=== PATIENT | male | born 1970 | race Caucasian/White ===

== ENCOUNTER 2016-07-12 19:47 | Observation (INO) | payer OTHER ==
[~2016-07-12] VITALS: Ht 172.7 cm; Wt 59.0 kg
[~2016-07-12 19:47] MED LIST: /OMEP10CA; /ONDA4TA; /PANT40TA; ADV250INH INH; ALBU17IN2 INH; CIPR500T89 PO; COUM1TAB; FLAG500T PO; JANT6TAB; LEVA500T PO; LEVO250T24 PO; MAGN500T2; METO10TA2; NICO21DI4; NICO21DI5 TD; No home medications; Norco; PANCREASE; PEPC20TA2; PERC5TAB8; PERCOCET PO; PHEN1SUP6 PR; PHEN25IN3 PO; PREV15CA; PROT1TAB2 PO; PROTPAK PO; REGL10TA6 PO; REGL5TAB2 PO; SUCR1TA PO; TRAM50TA2 PO; ULTR50TA PO; VALI10TA; VICO5TAB; VIOKASE; ZOFR4SOL PO; ZOFRAN; [UNRECOGNIZED DRUG - CODE] PO
[2016-07-12] MEDS ORDERED: NS 1,000 ML IV ONE (20:45)
[2016-07-12] MEDS ORDERED: METOCLOPRAMIDE INJ 10MG/2ML VIAL (J2765) As Ordered ONE (20:49)
[2016-07-12] MEDS ORDERED: BACT800T5 PO (20:53)
[2016-07-12] MEDS: MORPHINE 4 MG/ML 1ML SYRINGE IV PRN ×2 (20:54→22:34)
[2016-07-12 20:58] LABS: BASO % 0.3 % (0.0-1.0); EOS # 0.1 K/mm3 (0.0-0.50); EOS % 0.4 % (0.0-3.0); LARGE UNSTAINED CELL # 0.1 K/mm3 (0.0-0.4); LARGE UNSTAINED CELL % 0.8 % (0.0-4.0); LYMPH # 1.3 K/mm3 (1.5-4.5); LYMPH % 7.8 % (24.0-44.0); MEAN CORPUSCULAR HEMOGLOBIN 30.7 pg (27.0-33.0); MEAN CORPUSCULAR HGB CONC 34.1 g/dl (32.0-36.5); MEAN CORPUSCULAR VOLUME 89.8 fl (80.0-96.0); MONO # 0.7 K/mm3 (0.0-0.8); MONO % 4.1 % (0.0-5.0); NEUTROPHILS # 14.8 K/mm3 (1.8-7.7); NEUTROPHILS % 86.6 % (36.0-66.0); PLATELET COUNT, AUTOMATED 229 k/mm3 (150-450); RED CELL DISTRIBUTION WIDTH 12.5 % (11.5-14.5); WHITE BLOOD COUNT 17.1 K/mm3 (4.0-10.0)
[2016-07-12] MEDS ORDERED: METOCLOPRAMIDE INJ 10MG/2ML VIAL (J2765) IV ONE (21:00)
[2016-07-12] MEDS ORDERED: diphenhydrAMINE INJ 50MG/ML VIAL (J1200) IV ONE (21:00)
[2016-07-12 23:09] LABS: ALBUMIN/GLOBULIN RATIO 1.43 (1.00-1.93); ALKALINE PHOSPHATASE 129 U/L (45-117); ALT/SGPT 17 U/L (12-78); ANION GAP 15 MEQ/L (8-16); AST/SGOT 16 U/L (15-37); BILIRUBIN,DIRECT 0.2 MG/DL (0.0-0.2); BILIRUBIN,TOTAL 0.7 MG/DL (0.2-1.0); BLOOD UREA NITROGEN 21 MG/DL (7-18); CALCIUM LEVEL 9.3 MG/DL (8.5-10.1); CARBON DIOXIDE LEVEL 20 MEQ/L (21-32); CHLORIDE LEVEL 107 MEQ/L (98-107); CREATININE FOR GFR 2.04 MG/DL (0.70-1.30); GLOMERULAR FILTRATION RATE 37.5 (>60); GLUCOSE, FASTING 135 MG/DL (70-105); POTASSIUM SERUM 4.3 MEQ/L (3.5-5.1); SODIUM LEVEL 142 MEQ/L (136-145); TOTAL PROTEIN 8.5 GM/DL (6.4-8.2)
--- NOTE | 2016-07-12 23:50 | REPUSA ---
CT of the abdomen and pelvis without contrast Clinical statement: Pain. Technique: Multiple axial CT images were obtained from the base of the lungs to the floor of the pelv is utilizing 5 mm axial slices without administration of contrast. Coronal and sagittal reconstructio ns were also obtained. Comparison: 03/20/2016. Findings: Chest: The visualized lung bases are clear. Abdomen: The kidneys are normal in size bilaterally. There is no evidence of hydronephrosis or nephro lithiasis. The liver, spleen, pancreas, gallbladder and adrenal glands are unremarkable. The aorta de monstrates normal caliber and contour. There is no abdominal lymphadenopathy or ascites. Pelvis: The bowel is unremarkable, with no obstructive or inflammatory changes. The appendix is azeem l. Extensive diverticulosis is noted diffusely. The urinary bladder is within normal limits. There is no pelvic lymphadenopathy or ascites. The other pelvic structures appear unremarkable. Bones: There are no suspicious osseous abnormalities seen. There is mild degenerative disc disease at L1/L2. Impression: 1. No acute obstructive or inflammatory bowel changes. Diffuse diverticulosis without evidence of div erticulitis. 2. No evidence of hydronephrosis or nephrolithiasis. 3. Mild degenerative disc disease at L1/L2.
[2016-07-13] MEDS ORDERED: NS 1,000 ML IV ONE
[2016-07-13] MEDS ORDERED: ONDANSETRON 4MG/2ML VIAL (J2405) IV ONE
[2016-07-13] MEDS ORDERED: MORPHINE 4 MG/ML 1ML SYRINGE IV ONE
[2016-07-13] MEDS ORDERED: MORPHINE 2 MG/ML 1ML SYRINGE IV PRN (00:45)
[2016-07-13] MEDS ORDERED: ONDANSETRON 4MG/2ML VIAL (J2405) IV PRN (00:45)
[2016-07-13 01:30] VITALS: BP 140/78
[2016-07-13] MEDS: NS 1,000 ML IV SCH ×2 (02:07→13:54)
--- NOTE | 2016-07-13 02:17 | HPE ---
DATE OF ADMISSION: 07/13/2016 REASON FOR ADMISSION: Abdominal pain, acute kidney injury. HISTORY OF PRESENT ILLNESS: Patient is a 46-year-old male with past medical history significant for gastroesophageal reflux disease, COPD and recurrent pancreatitis who presented to the emergency room complaining of abdominal pain and three days of vomiting and diarrhea, stated his was also sick with similar symptoms. Symptoms continued to worsen until he presented to the emergency room today. In the emergency room, the patient was found to have white count of 17.1. He appears to be dehydrated with a creatinine of 2.04, baseline is around 0.8-0.9. He was still complaining of abdominal pain. He was given a few doses of morphine and two fluid boluses and was admitted under hospitalist service. The patient denied any chest pain or shortness of breath, was complaining of abdominal pain, had one episode of vomiting in the emergency room, but no diarrhea. Denies any fevers or chills. Denies any urinary incontinence. Denies any headaches or dizziness. REVIEW OF SYSTEMS: 12-point review of systems was obtained all of which was negative except for those mentioned above. PAST MEDICAL HISTORY: Significant for history of recurrent pancreatitis, gastroesophageal reflux disease, COPD, not on oxygen, history of hyperlipidemia, history of tobacco abuse, pulmonary nodule in the right upper lobe. The patient has history of alcohol abuse but has quit seven years ago. PAST SURGICAL HISTORY: Sphincterectomy with ERCP and ERCP with pancreatic stent placement 2007. ALLERGIES: No known drug allergies. SOCIAL HISTORY: Patient smokes half a pack a day for the past 30 years was an alcoholic but quit. FAMILY HISTORY: Noncontributory. HOME MEDICATIONS: Include - Reglan as needed for nausea or vomiting - pantoprazole 40 mg by mouth daily - Phenergan 25 mg as needed for nausea, vomiting PHYSICAL FINDINGS: VITALS: Temperature 98.1, pulse 80, respiratory rate 18, blood pressure is 135/78, pulse oximetry 99% on room air. HEENT: Pupils equal, round and reactive to light and accommodation. NECK: Supple. No jugular venous distention. LUNGS: Clear to auscultation bilaterally. ABDOMEN: Soft, tender to palpation. Positive bowel sounds. EXTREMITIES: No clubbing, cyanosis or edema. NEURO: Cranial nerves II-XII grossly intact. No focal deficits. CARDIAC: Regular rate and rhythm. No murmurs appreciated. LABORATORY DATA: WBCs 17.1, hemoglobin 20.2, hematocrit 59, platelet count 229. Sodium 142, potassium 4.3, chloride 107, BUN 21, creatinine 2.04, fasting glucose 135, AST 16, ALT 17, total bilirubin 0.7, alk phos 129, lipase 108. CT scan of the abdomen pelvis was done in the emergency room which showed no acute obstructive or inflammatory bowel changes. Diffuse diverticulosis without evidence of diverticulitis. No evidence of hydronephrosis or hydronephritis, mild degenerative disc disease at L1-2. ASSESSMENT AND PLAN: 1. Acute kidney injury, likely secondary to dehydration secondary to nausea, vomiting, diarrhea. Continue IV fluids. The patient received normal saline fluid boluses in the emergency room. Will continue IV fluids at a rate of 80 mL /hr. Will continue clear liquid diet. We will repeat labs in the morning. 2. Abdominal pain, unknown etiology at this time may be secondary to gastroenteritis. We will continue IV morphine as needed for pain. 3. Vomiting and diarrhea. We will order a GI panel. Continue IV hydration. 4. Leukocytosis may be secondary to reactive process versus infection. Will continue to monitor. 5. DVT prophylaxis. Sequential compression devices while in bed.
[2016-07-13 06:00] VITALS: BP 123/70
[2016-07-13] MEDS: MORPHINE 2 MG/ML 1ML SYRINGE IV PRN ×3 (06:21→18:58)
[2016-07-13] MEDS ORDERED: TRAZ50TA4 PO (06:42)
[2016-07-13] MEDS ORDERED: HYDR-3713 PO (06:42)
[2016-07-13] MEDS ORDERED: ZOFR20TA PO (06:42)
[2016-07-13 06:49] LABS: ALBUMIN 3.8 GM/DL (3.2-5.2); ALBUMIN/GLOBULIN RATIO 1.09 (1.00-1.93); ALKALINE PHOSPHATASE 98 U/L (45-117); ALT/SGPT 15 U/L (12-78); ANION GAP 9 MEQ/L (8-16); AST/SGOT 10 U/L (15-37); BILIRUBIN,TOTAL 0.4 MG/DL (0.2-1.0); BLOOD UREA NITROGEN 26 MG/DL (7-18); CALCIUM LEVEL 8.4 MG/DL (8.5-10.1); CARBON DIOXIDE LEVEL 24 MEQ/L (21-32); CHLORIDE LEVEL 108 MEQ/L (98-107); CREATININE FOR GFR 1.32 MG/DL (0.70-1.30); GLOMERULAR FILTRATION RATE > 60.0 (>60); GLUCOSE, FASTING 143 MG/DL (70-105); POTASSIUM SERUM 4.1 MEQ/L (3.5-5.1); SODIUM LEVEL 141 MEQ/L (136-145); TOTAL PROTEIN 7.3 GM/DL (6.4-8.2)
[2016-07-13 07:15] LABS: BASO % 0.1 % (0.0-1.0); EOS % 0.1 % (0.0-3.0); LARGE UNSTAINED CELL # 0.2 K/mm3 (0.0-0.4); LARGE UNSTAINED CELL % 1.5 % (0.0-4.0); LYMPH % 6.6 % (24.0-44.0); MEAN CORPUSCULAR HEMOGLOBIN 30.2 pg (27.0-33.0); MEAN CORPUSCULAR HGB CONC 33.4 g/dl (32.0-36.5); MEAN CORPUSCULAR VOLUME 90.5 fl (80.0-96.0); MONO # 0.8 K/mm3 (0.0-0.8); MONO % 5.6 % (0.0-5.0); NEUTROPHILS # 12.6 K/mm3 (1.8-7.7); PLATELET COUNT, AUTOMATED 192 k/mm3 (150-450); RED CELL DISTRIBUTION WIDTH 12.5 % (11.5-14.5); WHITE BLOOD COUNT 14.7 K/mm3 (4.0-10.0)
[2016-07-13] MEDS: NICOTINE 7 MG/24 HR TRANSDERMAL TD SCH (09:03)
[2016-07-13 14:00] VITALS: BP 132/65
--- NOTE | 2016-07-13 17:25 | IPN ---
DATE: 07/13/2016 SUBJECTIVE: Patient seen and examined in the room today. Patient still complains about abdominal discomfort. Patient could not tolerate significant oral intake. Every time he tried oral intake, it would elicit nausea and vomiting. Last diarrhea was right before admission, which is about more than one day ago. Patient stated his pain shows significant improvement since admission. Patient would like to advance his diet. OBJECTIVE: VITAL SIGNS: Temperature 97.8, pulse is 77, respirations 18, blood pressure is 123/70, pulse oximetry is 95% in room air. GENERAL: No sign of acute distress, alert and oriented times three. HEENT: Normocephalic, atraumatic. Extraocular motor grossly intact. CARDIOVASCULAR: Positive S1, S2, regular rate. LUNGS: Clear to auscultation bilaterally. ABDOMEN: Soft, tender to palpation. Bowel sounds present. EXTREMITIES: No edema. No cyanosis. LABORATORY DATA: WBC is 14.7, hemoglobin is 16.7, hematocrit is 50, platelet count is 192. Sodium is 141, potassium 4.1, chloride 108, carbon dioxide 24, BUN 26, creatinine 1.32, GFR greater than 60, fasting glucose 143, calcium 8.4. Total bilirubin 0.4, AST 10, ALT 15, alkaline phosphatase 98, total protein 7.3, albumin is 3.8. ASSESSMENT AND PLAN: 1, Acute gastrointestinal (GI) symptoms, most likely secondary to viral gastroenteritis. Continue supportive care with intravenous (IV) fluid and continue with pain management if needed. Patient will have Zofran for nausea, vomiting. Patient does not have any diarrhea since admission. 2. Acute kidney injury secondary to severe dehydration from acute GI symptoms. Patient has been receiving IV fluid. Patient's creatinine improved from 2 to 1.3. Now glomerular filtration rate (GFR) is greater than 60. Continue to monitor. 3. Hemoconcentration secondary to severe dehydration. At the time of presentation, patient had white blood cells (WBC) of 17, hemoglobin of 20.2, hematocrit 59. All the values were elevated. After fluid resuscitation, patient's white count dropped down to 14.7. Hemoglobin dropped down from 20 to 16.7, which is within normal range. Patient will continue on aggressive IV hydration. 4. History of pancreatitis. 5. Deep vein thrombosis (DVT) prophylaxis. Patient is on thromboembolic deterrents (TEDs) and sequential compression devices.
[2016-07-13 22:00] VITALS: BP 121/61
[2016-07-14] MEDS: MORPHINE 2 MG/ML 1ML SYRINGE IV PRN (00:17)
[2016-07-14] MEDS: NS 1,000 ML IV SCH (03:14)
[2016-07-14 06:00] VITALS: BP 114/65
[2016-07-14 06:56] LABS: BASO % 0.5 % (0.0-1.0); EOS # 0.1 K/mm3 (0.0-0.50); EOS % 1.1 % (0.0-3.0); LARGE UNSTAINED CELL # 0.2 K/mm3 (0.0-0.4); LARGE UNSTAINED CELL % 1.5 % (0.0-4.0); LYMPH # 2.4 K/mm3 (1.5-4.5); MEAN CORPUSCULAR HEMOGLOBIN 30.8 pg (27.0-33.0); MEAN CORPUSCULAR HGB CONC 33.7 g/dl (32.0-36.5); MEAN CORPUSCULAR VOLUME 91.3 fl (80.0-96.0); MONO # 0.6 K/mm3 (0.0-0.8); MONO % 6.3 % (0.0-5.0); NEUTROPHILS # 6.6 K/mm3 (1.8-7.7); NEUTROPHILS % 67.7 % (36.0-66.0); PLATELET COUNT, AUTOMATED 138 k/mm3 (150-450); RED CELL DISTRIBUTION WIDTH 12.5 % (11.5-14.5); WHITE BLOOD COUNT 9.8 K/mm3 (4.0-10.0)
[2016-07-14 07:10] LABS: ALBUMIN 3.1 GM/DL (3.2-5.2); ALBUMIN/GLOBULIN RATIO 1.15 (1.00-1.93); ALKALINE PHOSPHATASE 81 U/L (45-117); ALT/SGPT 10 U/L (12-78); ANION GAP 6 MEQ/L (8-16); AST/SGOT 9 U/L (15-37); BILIRUBIN,TOTAL 0.6 MG/DL (0.2-1.0); BLOOD UREA NITROGEN 16 MG/DL (7-18); CALCIUM LEVEL 7.8 MG/DL (8.5-10.1); CARBON DIOXIDE LEVEL 26 MEQ/L (21-32); CHLORIDE LEVEL 110 MEQ/L (98-107); CREATININE FOR GFR 0.78 MG/DL (0.70-1.30); GLOMERULAR FILTRATION RATE > 60.0 (>60); GLUCOSE, FASTING 78 MG/DL (70-105); POTASSIUM SERUM 3.9 MEQ/L (3.5-5.1); SODIUM LEVEL 142 MEQ/L (136-145); TOTAL PROTEIN 5.8 GM/DL (6.4-8.2)
[2016-07-14] MEDS: NICOTINE 7 MG/24 HR TRANSDERMAL TD SCH (09:33)
--- NOTE | 2016-07-14 12:15 | ECGEPIP ---
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
--- NOTE | 2016-07-14 13:10 | DSES ---
DATE OF ADMISSION: 07/13/2016 DATE OF DISCHARGE: 07/14/2016 PRIMARY CARE PROVIDER: Erick Mojica DO CONSULTANTS: None. PROCEDURES: None. COMPLICATIONS: None. ADMISSION/DISCHARGE DIAGNOSES: 1. Acute viral gastroenteritis. 2. Kidney injury secondary to severe dehydration. 3. Hemoconcentration from severe dehydration. 4. History of pancreatitis. 5. Chronic obstructive pulmonary disease (COPD), not on home oxygen. 6. History of dyslipidemia. 7. History of tobacco abuse. 8. Pulmonary nodule of the right upper lobe. HOSPITALIZATION COURSE: Patient is a 46-year-old male who presented to [facility] on July 13, 2016 for abdominal pain. Before hospitalization, the patient had been having gastrointestinal (GI) symptoms including nausea, vomiting, diarrhea and abdominal pain. The patient had a recent sick contact from his who just recovered from the GI symptoms. Due to the acute viral infection, the patient has been having very poor oral intake. During the admission process, the patient was found to have acute kidney injury and the patient was found to have significant hemoconcentration. The patient was admitted to the medical/surgical floor and the patient was started on aggressive IV fluids. The patient was also receiving morphine for pain control. The patient was started on a liquid diet and advanced as tolerated. In the next one day, the patient's hemoconcentration issue has been resolved with IV fluids. The patient's kidney functions continued to show improvement. Creatinine improved from 2 to 0.78 and the patient was able to advance his diet to a regular diet. On July 14, 2016, the patient was determined medically stable for discharge with the recommendation to followup with his primary care provider within one week. OBJECTIVE: VITAL SIGNS: Temperature 97.1, pulse is 65, respirations 19, blood pressure 114/65, pulse oximetry 95% in room air. LABORATORY DATA: WBC on admission was 17.1, hemoglobin 20.2, hematocrit 59, platelet count was 229. BUN is 21, creatinine is 2, GFR is 137.5. On the day of discharge, the patient had a WBC of 9.8, hemoglobin of 14.5, hematocrit 42.9, platelet count of 138. Sodium 142, potassium 3.9, chloride 110, carbon dioxide 26, BUN 16, creatinine 0.78, GFR greater than 60, fasting glucose 78, calcium 7.8, total bilirubin 0.6, AST 9, ALT 10, alkaline phosphatase is 81, total protein 5.8, albumin 3.1. DISCHARGE MEDICATIONS: - Percocet one tablet by mouth every 6 hours as needed - Zofran 4 mg by mouth every 12 hours as needed for nausea or vomiting - trazodone 50 mg by mouth at bedtime as needed for insomnia DISCHARGE INSTRUCTIONS: Discontinue lines. Discharge home. Activity as tolerated. Diet as tolerated. Patient is recommended to continue oral hydration. Patient should followup with primary care provider, Dr. Mojica, within one week. DISCHARGE TIME: Greater than 30 minutes. DISCHARGE CONDITION: Stable.
[2016-07-15] MEDS ORDERED: INFLUENZA QUADRIVALENT PF VACCINE 0.5ML SYRINGE/VIAL (90686) IM ONE (09:00)
[2016-07-15] MEDS ORDERED: PREVNAR 13 VACCINE SYRINGE (CPT CODE:90670) IM ONE (09:00)
== END 2016-07-14 10:24 | disposition home or self-care (01) ==
LOC: EDBD 19:47 → M ED 21:22 → M ED INP 07-13 00:34 → M MSPAV 07-13 01:27
PROVIDERS: ADMIT Internal Medicine; ATTEND Internal Medicine
DX: K52.89 Other specified noninfective gastroenteritis and colitis (principal); E86.0 Dehydration; N17.9 Acute kidney failure, unspecified; K21.9 Gastro-esophageal reflux disease without esophagitis; J44.9 Chronic obstructive pulmonary disease, unspecified; D72.829 Elevated white blood cell count, unspecified; E78.5 Hyperlipidemia, unspecified; R91.1 Solitary pulmonary nodule; Z79.899 Other long term (current) drug therapy
CPT/HCPCS: 36415; 74176; 80048; 80053; 80076; 82550; 82553; 83690; 85025; 93005; 93041; 96376; 99285; J1200; J2405; J2765

== ENCOUNTER 2016-07-15 19:41 | Emergency (ER) | payer OTHER ==
[~2016-07-15] VITALS: Ht 172.7 cm; Wt 63.5 kg
[~2016-07-15 19:41] MED LIST changes: +BACT800T5 PO; +HYDR-3713 PO; +TRAZ50TA4 PO; +ZOFR20TA PO
[2016-07-15] MEDS ORDERED: METOCLOPRAMIDE INJ 10MG/2ML VIAL (J2765) IV ONE (20:45)
[2016-07-15] MEDS ORDERED: NS 500 ML IV ONE (20:45)
[2016-07-15] MEDS ORDERED: MORPHINE 2 MG/ML 1ML SYRINGE IV ONE (20:45)
[2016-07-15 21:14] LABS: BASO % 0.3 % (0.0-1.0); EOS % 0.4 % (0.0-3.0); LARGE UNSTAINED CELL # 0.1 K/mm3 (0.0-0.4); LARGE UNSTAINED CELL % 0.7 % (0.0-4.0); LYMPH # 1.4 K/mm3 (1.5-4.5); LYMPH % 10.5 % (24.0-44.0); MEAN CORPUSCULAR HEMOGLOBIN 31.2 pg (27.0-33.0); MEAN CORPUSCULAR HGB CONC 35.1 g/dl (32.0-36.5); MEAN CORPUSCULAR VOLUME 88.9 fl (80.0-96.0); MONO # 0.6 K/mm3 (0.0-0.8); NEUTROPHILS # 10.1 K/mm3 (1.8-7.7); NEUTROPHILS % 83.1 % (36.0-66.0); PLATELET COUNT, AUTOMATED 194 k/mm3 (150-450); RED CELL DISTRIBUTION WIDTH 12.3 % (11.5-14.5); WHITE BLOOD COUNT 12.1 K/mm3 (4.0-10.0)
[2016-07-15 21:51] LABS: ALBUMIN 4.4 GM/DL (3.2-5.2); ALBUMIN/GLOBULIN RATIO 1.38 (1.00-1.93); ALKALINE PHOSPHATASE 113 U/L (45-117); ALT/SGPT 16 U/L (12-78); AMYLASE 58 U/L (25-115); ANION GAP 11 MEQ/L (8-16); AST/SGOT 16 U/L (15-37); BILIRUBIN,DIRECT 0.2 MG/DL (0.0-0.2); BILIRUBIN,TOTAL 0.8 MG/DL (0.2-1.0); BLOOD UREA NITROGEN 13 MG/DL (7-18); CALCIUM LEVEL 9.2 MG/DL (8.5-10.1); CARBON DIOXIDE LEVEL 28 MEQ/L (21-32); CHLORIDE LEVEL 105 MEQ/L (98-107); CREATININE FOR GFR 0.93 MG/DL (0.70-1.30); GLOMERULAR FILTRATION RATE > 60.0 (>60); GLUCOSE, FASTING 99 MG/DL (70-105); SODIUM LEVEL 144 MEQ/L (136-145); TOTAL PROTEIN 7.6 GM/DL (6.4-8.2)
[2016-07-16] MEDS ORDERED: ISOVUE-370 76% 100ML VIAL (Q9967) As Ordered ONE (00:17)
--- NOTE | 2016-07-16 01:50 | REPUSA ---
CLINICAL HISTORY: Abdominal pain. TECHNIQUE: Multiple axial and coronal CT images were obtained through the abdomen after administratio n of intravenous contrast material. COMMENTS: Comparison is made to prior exam performed on 07/12/2016. Fluid-filled stomach. The liver is of uniform attenuation without mass or defect. There is no intra or extrahepatic biliary ductal dilatation. The spleen is unremarkable. The gallbladder is within normal limits. The pancreas is of normal contour and attenuation characteristics. There is no evidence of adrenal mass. Both kidneys demonstrate prompt and equal nephrograms. The kidn eys are normal in size, shape and configuration. There is no evidence of renal mass. There is no hydr oureter or hydronephrosis. There is no evidence of abdominal ascites or lymphadenopathy. There is no evidence of appendicitis. There is mild proximal bowel wall thickening. The small and lar ge bowels are unremarkable with no evidence for bowel obstruction. Images of the lung bases show no evidence of pleural or parenchymal mass. There are no pleural effusi ons. IMPRESSION: Gastroparesis. Mildly thickened proximal small bowel suggestive of mild enteritis. Thank you for your kind referral of this patient
[2016-07-16] MEDS ORDERED: REGL10TA6 PO (01:58)
[2016-07-16 02:05] VITALS: BP 151/94
== END 2016-07-16 02:24 | disposition home or self-care (01) ==
LOC: M ED 20:54
DX: K52.9 Noninfective gastroenteritis and colitis, unspecified (principal); J44.9 Chronic obstructive pulmonary disease, unspecified; N28.9 Disorder of kidney and ureter, unspecified; Z87.19 Personal history of other diseases of the digestive system; Z79.899 Other long term (current) drug therapy; F17.210 Nicotine dependence, cigarettes, uncomplicated
CPT/HCPCS: 74160; 80048; 80076; 82150; 83690; 85025; 96361; 96374; 96375; 99284; J2765; Q9967

== ENCOUNTER 2016-07-18 13:58 | Emergency (ER) | payer OTHER ==
[~2016-07-18] VITALS: Ht 172.7 cm; Wt 63.5 kg
[2016-07-18] MEDS ORDERED: PROT1TAB2 PO (14:20)
[2016-07-18] MEDS ORDERED: MORPHINE 4 MG/ML 1ML SYRINGE IV ONE (17:15)
[2016-07-18] MEDS ORDERED: ONDANSETRON 4MG/2ML VIAL (J2405) IV ONE (17:15)
[2016-07-18] MEDS ORDERED: NS 1,000 ML IV ONE (17:15)
[2016-07-18 18:30] LABS: ALBUMIN 4.6 GM/DL (3.2-5.2); ALBUMIN/GLOBULIN RATIO 1.35 (1.00-1.93); ALKALINE PHOSPHATASE 112 U/L (45-117); ALT/SGPT 12 U/L (12-78); AMYLASE 68 U/L (25-115); ANION GAP 9 MEQ/L (8-16); AST/SGOT 11 U/L (15-37); BILIRUBIN,DIRECT 0.2 MG/DL (0.0-0.2); BILIRUBIN,TOTAL 0.7 MG/DL (0.2-1.0); BLOOD UREA NITROGEN 14 MG/DL (7-18); CALCIUM LEVEL 9.3 MG/DL (8.5-10.1); CARBON DIOXIDE LEVEL 31 MEQ/L (21-32); CHLORIDE LEVEL 101 MEQ/L (98-107); CREATININE FOR GFR 0.98 MG/DL (0.70-1.30); GLOMERULAR FILTRATION RATE > 60.0 (>60); GLUCOSE, FASTING 113 MG/DL (70-105); POTASSIUM SERUM 4.8 MEQ/L (3.5-5.1); SODIUM LEVEL 141 MEQ/L (136-145)
--- NOTE | 2016-07-18 18:44 | REP ---
Chest two views HISTORY: Preop Comparison: 03/20/2016 The lungs are clear. The heart is normal in size. The pulmonary vasculature is normal in appearance. The bony structure is intact. IMPRESSION: No acute disease. Signed by Broderick Qiu MD 07/18/2016 06:35 P
[2016-07-18 18:52] LABS: INR 1.02
[2016-07-18] MEDS ORDERED: HYDROmorphone HCL 1 MG/ML SYRINGE (J1170) IV ONE (19:30)
[2016-07-18] MEDS ORDERED: METOCLOPRAMIDE INJ 10MG/2ML VIAL (J2765) IV ONE (19:30)
--- NOTE | 2016-07-18 19:48 | REP ---
CT ABDOMEN AND PELVIS WITHOUT CONTRAST: HISTORY: Abdominal pain. COMPARISON: 07/12/2016 and 07/16/2016. The liver, gallbladder, pancreas, spleen, adrenal glands and kidneys are normal in appearance. There is no mass, adenopathy, or free fluid. Diverticula are present throughout the colon. A very small amount of pneumoperitoneum is present in the right upper quadrant. The visualized lungs are clear. IMPRESSION: 1. Diffuse diverticulosis. 2. Very small amount of right upper quadrant pneumoperitoneum. CT PELVIS: The prostate gland and urinary bladder are normal in appearance. Diverticula are present throughout the colon. There is no mass, adenopathy, or free fluid. Degenerative change is present in the spine. IMPRESSION: Diverticulosis. Results were discussed with Irina Thibodeaux at 6 p.m. this date. Signed by Broderick Qiu MD 07/18/2016 07:50 P
[2016-07-18 20:39] LABS: BASO % 0.3 % (0.0-1.0); EOS # 0.1 K/mm3 (0.0-0.50); EOS % 0.8 % (0.0-3.0); LARGE UNSTAINED CELL # 0.1 K/mm3 (0.0-0.4); LARGE UNSTAINED CELL % 0.7 % (0.0-4.0); LYMPH # 1.1 K/mm3 (1.5-4.5); LYMPH % 8.5 % (24.0-44.0); MEAN CORPUSCULAR HEMOGLOBIN 30.8 pg (27.0-33.0); MEAN CORPUSCULAR HGB CONC 33.8 g/dl (32.0-36.5); MEAN CORPUSCULAR VOLUME 91.3 fl (80.0-96.0); MONO # 0.6 K/mm3 (0.0-0.8); MONO % 4.9 % (0.0-5.0); NEUTROPHILS # 10.1 K/mm3 (1.8-7.7); NEUTROPHILS % 84.8 % (36.0-66.0); PLATELET COUNT, AUTOMATED 189 k/mm3 (150-450); RED CELL DISTRIBUTION WIDTH 12.3 % (11.5-14.5); WHITE BLOOD COUNT 11.9 K/mm3 (4.0-10.0)
[2016-07-18] MEDS ORDERED: metroNIDAZOLE (FLAGYL) 500 MG TAB PO ONE (21:45)
[2016-07-18] MEDS ORDERED: CIPROFLOXACIN 500 MG TAB PO ONE (21:45)
[2016-07-18] MEDS ORDERED: CIPR500T89 PO (21:46)
[2016-07-18] MEDS ORDERED: METR500T10 PO (21:46)
[2016-07-18] MEDS ORDERED: PERC5TAB6 PO (21:46)
[2016-07-18 21:53] VITALS: BP 116/60
--- NOTE | 2016-07-19 06:27 | ED PDOC ---
Provider Note dr hernandez faxed formal report of ct abd/p for fu Cristal Abarca MD Jul 19, 2016 06:27
--- NOTE | 2016-07-19 20:22 | ECGEPIP ---
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
== END 2016-07-18 22:16 | disposition home or self-care (01) ==
LOC: M ED 15:43
DX: K57.12 Diverticulitis of small intestine without perforation or abscess without bleeding (principal); K63.1 Perforation of intestine (nontraumatic); R11.2 Nausea with vomiting, unspecified; F17.200 Nicotine dependence, unspecified, uncomplicated; Z87.19 Personal history of other diseases of the digestive system; Z88.5 Allergy status to narcotic agent; Z79.899 Other long term (current) drug therapy
CPT/HCPCS: 71020; 74176; 80048; 80076; 81001; 82150; 83690; 85025; 85610; 85730; 87086; 93005; 96374; 96375; 99283; J1170; J2405; J2765

== ENCOUNTER 2016-07-20 15:19 | Emergency (ER) | payer OTHER ==
[~2016-07-20] VITALS: Ht 172.7 cm; Wt 63.5 kg
[~2016-07-20 15:19] MED LIST changes: +METR500T10 PO; +PERC5TAB6 PO
[2016-07-20] MEDS ORDERED: PANTOPRAZOLE 40MG INJ (PROTONIX) (C9113) IV ONE (15:30)
[2016-07-20] MEDS ORDERED: MORPHINE 4 MG/ML 1ML SYRINGE IV ONE (15:30)
[2016-07-20] MEDS ORDERED: NS 1,000 ML IV ONE (15:30)
[2016-07-20] MEDS ORDERED: PROMETHAZINE INJ 25 MG/ML VIAL (J2550) IV ONE (16:00)
[2016-07-20 16:21] LABS: MEAN CORPUSCULAR HEMOGLOBIN 30.9 pg (27.0-33.0); MEAN CORPUSCULAR HGB CONC 34.6 g/dl (32.0-36.5); MEAN CORPUSCULAR VOLUME 89.4 fl (80.0-96.0); PLATELET COUNT, AUTOMATED 166 k/mm3 (150-450); RED CELL DISTRIBUTION WIDTH 12.2 % (11.5-14.5); WHITE BLOOD COUNT 13.9 K/mm3 (4.0-10.0)
[2016-07-20 16:23] LABS: ALBUMIN/GLOBULIN RATIO 1.54 (1.00-1.93); ALKALINE PHOSPHATASE 91 U/L (45-117); ALT/SGPT 12 U/L (12-78); AMYLASE 60 U/L (25-115); ANION GAP 8 MEQ/L (8-16); AST/SGOT 10 U/L (15-37); BILIRUBIN,DIRECT 0.2 MG/DL (0.0-0.2); BILIRUBIN,TOTAL 0.6 MG/DL (0.2-1.0); BLOOD UREA NITROGEN 13 MG/DL (7-18); CALCIUM LEVEL 8.2 MG/DL (8.5-10.1); CARBON DIOXIDE LEVEL 28 MEQ/L (21-32); CHLORIDE LEVEL 106 MEQ/L (98-107); GLOMERULAR FILTRATION RATE > 60.0 (>60); GLUCOSE, FASTING 103 MG/DL (70-105); SODIUM LEVEL 142 MEQ/L (136-145); TOTAL PROTEIN 6.6 GM/DL (6.4-8.2)
[2016-07-20 16:37] LABS: BANDS 1 % (< 11); BASOPHILS 1 % (0-4); EOSINOPHILS 2 % (0-5)
[2016-07-20] MEDS ORDERED: GASTROGRAFIN SOLUTION 30ML (Q9963) As Ordered ONE (17:15)
[2016-07-20] MEDS ORDERED: GASTROGRAFIN SOLUTION 30ML (Q9963) PO ONE ×2 (17:25→17:55)
--- NOTE | 2016-07-20 17:46 | REP ---
ABDOMINAL SERIES: Supine and erect views of the abdomen demonstrate no free air or obstruction. Mild vascular calcifications are seen in the pelvis. There are degenerative changes of the spine. An accompanying view of the chest demonstrates a small nodular opacity in the right upper lobe which has been seen on multiple prior exams and is benign. No acute infiltrate is seen. Heart is normal in size. IMPRESSION: No acute abnormality is detected. Signed by Scotty Jones MD 07/30/2016 08:58 A
[2016-07-20] MEDS ORDERED: ISOVUE-370 76% 100ML VIAL (Q9967) As Ordered ONE (18:42)
[2016-07-20] MEDS ORDERED: MORPHINE 2 MG/ML 1ML SYRINGE IV ONE (18:45)
[2016-07-20] MEDS ORDERED: ONDANSETRON 4MG/2ML VIAL (J2405) IV ONE (18:45)
--- NOTE | 2016-07-20 21:20 | REPUSA ---
CLINICAL HISTORY: Abdominal pain. TECHNIQUE: Multiple axial, sagittal and coronal CT images were obtained through the abdomen and pelvi s after administration of oral and intravenous contrast material. COMMENTS: The liver is of uniform attenuation without mass or defect. There is no intra or extrahepatic biliary ductal dilatation. The spleen is normal. The gallbladder is within normal limits. The pancreas is of normal contour and attenuation characteristics. There is no evidence of adrenal mass. Both kidneys demonstrate prompt and equal nephrograms. The kidneys are normal in size, shape and conf iguration. There is no evidence of renal or ureteral mass. No renal or ureteral calculi are identifie d. There is no hydroureter or hydronephrosis. There is evidence of relatively severe circumferential wall thickening involving loops of jejunum com patible with jejunitis. Infectious and inflammatory etiologies are considered. Scattered colonic di verticulosis is noted. No evidence of acute diverticulitis. Small hiatal hernia is seen. No evidence for appendicitis. No evidence for small or large bowel obstruction. There is no evidenc e of abdominal ascites or lymphadenopathy. There is no evidence of intrinsic or extrinsic bladder mass. There is no pelvic ascites or lymphadeno krytsal. Images of the lung bases show no evidence of pleural or parenchymal mass. Bibasilar scarring versus atelectasis is present. There are no pleural effusions. The bony structures are free of lytic or blastic lesions. IMPRESSION: 1. Jejunitis. 2. Colonic diverticulosis without evidence of diverticulitis. Thank you for your kind referral of this patient. We appreciate the opportunity to participate in th is patient's care.
[2016-07-20 21:51] VITALS: BP 119/74
--- NOTE | 2016-07-22 18:42 | ED PDOC ---
Provider Note [facility] DR GRIFFITHS FAXED FORMAL REPORT OF CT ABD/P FOR FU Cristal Acosta MD Jul 22, 2016 18:42
== END 2016-07-20 21:53 | disposition home or self-care (01) ==
LOC: M ED 15:30
DX: K52.9 Noninfective gastroenteritis and colitis, unspecified (principal); R10.10 Upper abdominal pain, unspecified; K57.30 Diverticulosis of large intestine without perforation or abscess without bleeding; F17.200 Nicotine dependence, unspecified, uncomplicated; Z79.899 Other long term (current) drug therapy; Z88.8 Allergy status to other drugs, medicaments and biological substances
CPT/HCPCS: 36415; 74022; 74177; 80048; 80076; 82150; 83605; 83690; 85025; 96361; 96374; 96375; 96376; 99284; C9113; J2405; Q9963; Q9967

== ENCOUNTER 2016-08-09 17:11 | Emergency (ER) | payer OTHER ==
[~2016-08-09] VITALS: Ht 172.7 cm; Wt 59.0 kg
[2016-08-09 18:05] LABS: ALBUMIN 5.4 GM/DL (3.2-5.2); ALBUMIN/GLOBULIN RATIO 1.38 (1.00-1.93); BILIRUBIN,DIRECT 0.1 MG/DL (0.0-0.2); BILIRUBIN,TOTAL 0.7 MG/DL (0.2-1.0); CALCIUM LEVEL 10.9 MG/DL (8.5-10.1); CREATININE FOR GFR 1.66 MG/DL (0.70-1.30); GLOMERULAR FILTRATION RATE 47.5 (>60); POTASSIUM SERUM 4.3 MEQ/L (3.5-5.1); TOTAL PROTEIN 9.3 GM/DL (6.4-8.2)
[2016-08-09 18:18] LABS: BASO % 0.3 % (0.0-1.0); EOS % 0.1 % (0.0-3.0); LARGE UNSTAINED CELL # 0.1 K/mm3 (0.0-0.4); LARGE UNSTAINED CELL % 0.9 % (0.0-4.0); LYMPH # 1.5 K/mm3 (1.5-4.5); LYMPH % 9.4 % (24.0-44.0); MEAN CORPUSCULAR HEMOGLOBIN 30.6 pg (27.0-33.0); MEAN CORPUSCULAR HGB CONC 34.3 g/dl (32.0-36.5); MEAN CORPUSCULAR VOLUME 89.2 fl (80.0-96.0); MONO # 0.8 K/mm3 (0.0-0.8); MONO % 5.4 % (0.0-5.0); NEUTROPHILS # 11.9 K/mm3 (1.8-7.7); NEUTROPHILS % 83.9 % (36.0-66.0); PLATELET COUNT, AUTOMATED 243 k/mm3 (150-450); RED CELL DISTRIBUTION WIDTH 12.4 % (11.5-14.5); WHITE BLOOD COUNT 14.2 K/mm3 (4.0-10.0)
[2016-08-09] MEDS ORDERED: ONDANSETRON 4MG/2ML VIAL (J2405) As Ordered ONE (18:28)
[2016-08-09] MEDS ORDERED: NS 1,000 ML IV ONE (18:30)
[2016-08-09] MEDS ORDERED: ONDANSETRON 4MG/2ML VIAL (J2405) IV ONE (18:30)
[2016-08-09] MEDS ORDERED: MORPHINE 4 MG/ML 1ML SYRINGE IV ONE (18:30)
--- NOTE | 2016-08-09 19:06 | REP ---
Clinical: Abdominal pain. Comparison: 07/20/2016. Findings: Lung bases are clear. Visualized heart and pericardium are normal. Liver, spleen, pancreas, gallbladder, bilateral adrenal glands and kidneys are normal for noncontrast evaluation. The enteric system is without obstruction or acute inflammatory process. Scattered colonic diverticula noted without acute diverticulitis. Normal terminal ileum and appendix identified in the right lower quadrant. Pelvis demonstrates partially collapsed bladder and normal age appropriate prostate/seminal vesicles. No free air. No ascites. No adenopathy. Atherosclerotic changes to the aorta noted without aneurysm. Musculoskeletal structures demonstrate degenerative changes. Impression: No acute intra-abdominal or pelvic pathology appreciated. Diverticulosis without acute diverticulitis. No free fluid. Signed by Bib Ziegler MD 08/09/2016 06:58 P
[2016-08-09] MEDS ORDERED: MORPHINE 2 MG/ML 1ML SYRINGE IV ONE (19:45)
[2016-08-09 19:48] VITALS: BP 149/89
--- NOTE | 2016-08-10 16:35 | ECGEPIP ---
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
== END 2016-08-09 20:38 | disposition home or self-care (01) ==
LOC: M ED 18:10
DX: R10.9 Unspecified abdominal pain (principal)
CPT/HCPCS: 74176; 80048; 80076; 83690; 85025; 93005; 96374; 96375; 96376; 99283; J2405

== ENCOUNTER → 2016-08-15 | Outpatient (REF) | payer OTHER, SELFPAY ==
[2016-08-15 13:25] LABS: ANION GAP 7 MEQ/L (8-16); BLOOD UREA NITROGEN 13 MG/DL (7-18); CALCIUM LEVEL 8.9 MG/DL (8.5-10.1); CARBON DIOXIDE LEVEL 29 MEQ/L (21-32); CHLORIDE LEVEL 104 MEQ/L (98-107); CREATININE FOR GFR 0.65 MG/DL (0.70-1.30); GLOMERULAR FILTRATION RATE > 60.0 (>60); GLUCOSE, FASTING 77 MG/DL (70-105); POTASSIUM SERUM 4.1 MEQ/L (3.5-5.1); SODIUM LEVEL 140 MEQ/L (136-145)
== END ==
LOC: M SFHCPLAZ 11:06
PROVIDERS: ATTEND Family Medicine
DX: R10.33 Periumbilical pain (principal)

== ENCOUNTER → 2016-09-12 | Outpatient (CLI) | payer OTHER, SELFPAY ==
[~2016-09-12] VITALS: Ht 172.7 cm; Wt 63.5 kg
[~2016-09-12] MED LIST changes: +LIDOCAINE 2% INJ 100 MG/5 ML SDV (FOR ANES.) As Ordered ONE; +NS 1,000 ML IV ONE; +PROPOFOL 200 MG/20 ML VIAL As Ordered ONE
--- NOTE | 2016-09-12 10:16 | ROOR ---
Patient Name: Casey Diana Procedure Date: 09/12/2016 10:04 AM Date of : 1970 Age: 46 [facility] Gender: Male Note Status: Finalized Procedure: Upper GI endoscopy Indications: Suspected gastric ulcer Providers: Scotty Quiros DO Referring MD: Erick Cruz Do Requesting Provider: Medicines: Propofol per Anesthesia Complications: No immediate complications. Procedure: Pre-Anesthesia Assessment: - Prior to the procedure, a History and Physical was performed, and patient medications and allergies were reviewed. The patient is competent. The risks and benefits of the procedure and the sedation options and risks were discussed with the patient. All questions were answered and informed consent was obtained. Patient identification and proposed procedure were verified by the physician, the nurse, the anesthesiologist and the locate technician in the endoscopy suite. Mental Status Examination: alert and oriented. Airway Examination: normal oropharyngeal airway and neck mobility. Respiratory Examination: clear to auscultation. CV Examination: normal. Prophylactic Antibiotics: The patient does not require prophylactic antibiotics. Prior Anticoagulants: The patient has taken no previous anticoagulant or antiplatelet agents. ASA Grade Assessment: II - A patient with mild systemic disease. After reviewing the risks and benefits, the patient was deemed in satisfactory condition to undergo the procedure. The anesthesia plan was to use monitored anesthesia care (MAC). Immediately prior to administration of medications, the patient was re-assessed for adequacy to receive sedatives. The heart rate, respiratory rate, oxygen saturations, blood pressure, adequacy of pulmonary ventilation, and response to care were monitored throughout the procedure. The physical status of the patient was re-assessed after the procedure. The Endoscope was introduced through the mouth, and advanced to the second part of duodenum. The upper GI endoscopy was accomplished without difficulty. The patient tolerated the procedure well. Findings: Mild inflammation was found in the prepyloric region of the stomach. Biopsies were taken with a cold forceps for Helicobacter pylori testing. Estimated blood loss was minimal. Impression: - Gastritis. Biopsied. Recommendation: - Patient has a contact number available for emergencies. The signs and symptoms of potential delayed complications were discussed with the patient. Return to normal activities tomorrow. Written discharge instructions were provided to the patient. - Telephone my office for pathology results in 1 week. Scotty Quiros DO 09/12/2016 10:16:12 AM This report has been signed electronically. Number of Addenda: 0 Note Initiated On: 09/12/2016 10:04 AM Estimated Blood Loss: Estimated blood loss was minimal.
[2016-09-12 10:40] VITALS: BP 125/79
== END | disposition home or self-care (01) ==
LOC: M OPP 09:16
PROVIDERS: ATTEND Surgery
DX: K25.9 Gastric ulcer, unspecified as acute or chronic, without hemorrhage or perforation (principal); K29.70 Gastritis, unspecified, without bleeding; R12 Heartburn; J44.9 Chronic obstructive pulmonary disease, unspecified; R06.83 Snoring; F41.9 Anxiety disorder, unspecified; F17.210 Nicotine dependence, cigarettes, uncomplicated; Z88.8 Allergy status to other drugs, medicaments and biological substances; Z79.899 Other long term (current) drug therapy

== ENCOUNTER 2016-09-19 17:38 | Emergency (ER) | payer OTHER ==
[~2016-09-19] VITALS: Ht 172.7 cm; Wt 61.2 kg
[~2016-09-19 17:38] MED LIST changes: -LIDOCAINE 2% INJ 100 MG/5 ML SDV (FOR ANES.) As Ordered ONE; -NS 1,000 ML IV ONE; -PROPOFOL 200 MG/20 ML VIAL As Ordered ONE
[2016-09-19] MEDS ORDERED: OXYC1TAB23 PO (17:47)
[2016-09-19] MEDS ORDERED: NS 1,000 ML IV ONE ×2 (19:30→20:15)
[2016-09-19] MEDS ORDERED: HYDROmorphone HCL 1 MG/ML SYRINGE (J1170) IV ONE (19:30)
[2016-09-19] MEDS ORDERED: METOCLOPRAMIDE INJ 10MG/2ML VIAL (J2765) IV ONE (19:30)
[2016-09-19 19:35] LABS: BASO % 0.3 % (0.0-1.0); EOS % 0.2 % (0.0-3.0); LARGE UNSTAINED CELL # 0.2 K/mm3 (0.0-0.4); LARGE UNSTAINED CELL % 1.5 % (0.0-4.0); LYMPH % 13.9 % (24.0-44.0); MEAN CORPUSCULAR HEMOGLOBIN 31.5 pg (27.0-33.0); MEAN CORPUSCULAR HGB CONC 34.7 g/dl (32.0-36.5); MEAN CORPUSCULAR VOLUME 90.7 fl (80.0-96.0); MONO # 0.8 K/mm3 (0.0-0.8); MONO % 5.3 % (0.0-5.0); NEUTROPHILS # 11.4 K/mm3 (1.8-7.7); NEUTROPHILS % 78.8 % (36.0-66.0); PLATELET COUNT, AUTOMATED 256 k/mm3 (150-450); RED CELL DISTRIBUTION WIDTH 12.7 % (11.5-14.5); WHITE BLOOD COUNT 14.5 K/mm3 (4.0-10.0)
[2016-09-19 19:44] LABS: ALBUMIN 5.2 GM/DL (3.2-5.2); ALBUMIN/GLOBULIN RATIO 1.37 (1.00-1.93); BILIRUBIN,DIRECT 0.2 MG/DL (0.0-0.2); BILIRUBIN,TOTAL 0.9 MG/DL (0.2-1.0); CALCIUM LEVEL 10.4 MG/DL (8.5-10.1); CREATININE FOR GFR 1.6 MG/DL (0.70-1.30); GLOMERULAR FILTRATION RATE 49.6 (>60); POTASSIUM SERUM 4.2 MEQ/L (3.5-5.1)
[2016-09-19 20:04] VITALS: BP 144/78
[2016-09-19] MEDS ORDERED: MORPHINE 4 MG/ML 1ML SYRINGE IV ONE (21:15)
[2016-09-19] MEDS ORDERED: REGL10TA6 PO (21:18)
== END 2016-09-19 21:30 | disposition home or self-care (01) ==
LOC: EDBD 17:38 → M ED 19:00
DX: E86.9 Volume depletion, unspecified (principal); R11.10 Vomiting, unspecified
CPT/HCPCS: 80048; 80076; 82150; 83605; 83690; 85025; 96361; 96374; 96375; 99284; J1170; J2765

== ENCOUNTER → 2016-09-21 | Outpatient (REF) | payer OTHER ==
[~2016-09-21] MED LIST changes: +OXYC1TAB23 PO
[2016-09-21 13:36] LABS: BASO % 0.5 % (0.0-1.0); EOS # 0.1 K/mm3 (0.0-0.50); EOS % 1.1 % (0.0-3.0); LARGE UNSTAINED CELL # 0.2 K/mm3 (0.0-0.4); LARGE UNSTAINED CELL % 1.8 % (0.0-4.0); LYMPH # 1.9 K/mm3 (1.5-4.5); LYMPH % 19.8 % (24.0-44.0); MEAN CORPUSCULAR HEMOGLOBIN 30.7 pg (27.0-33.0); MEAN CORPUSCULAR HGB CONC 34.2 g/dl (32.0-36.5); MEAN CORPUSCULAR VOLUME 89.7 fl (80.0-96.0); MONO # 0.6 K/mm3 (0.0-0.8); MONO % 7.2 % (0.0-5.0); NEUTROPHILS % 69.6 % (36.0-66.0); PLATELET COUNT, AUTOMATED 172 k/mm3 (150-450); RED CELL DISTRIBUTION WIDTH 12.8 % (11.5-14.5); WHITE BLOOD COUNT 8.6 K/mm3 (4.0-10.0)
[2016-09-21 13:47] LABS: REASON FOR REVIEW COMPREHENSIVE REVIEW
[2016-09-21 13:51] LABS: ALKALINE PHOSPHATASE 87 U/L (45-117); ALT/SGPT 15 U/L (12-78); AMYLASE 58 U/L (25-115); ANION GAP 8 MEQ/L (8-16); AST/SGOT 13 U/L (15-37); BILIRUBIN,TOTAL 0.8 MG/DL (0.2-1.0); BLOOD UREA NITROGEN 14 MG/DL (7-18); CARBON DIOXIDE LEVEL 29 MEQ/L (21-32); CHLORIDE LEVEL 104 MEQ/L (98-107); CREATININE FOR GFR 0.75 MG/DL (0.70-1.30); FERRITIN 141 NG/ML (26-388); GAMMA GLUTAMYLTRANSPEPTIDASE 13 U/L (15-85); GLUCOSE, FASTING 83 MG/DL (70-105); PERCENT SATURATION 37.9 % (19.7-37.4); POTASSIUM SERUM 4.2 MEQ/L (3.5-5.1); SODIUM LEVEL 141 MEQ/L (136-145); TOTAL IRON BINDING CAPACITY 290 UG/DL (250-450)
[2016-09-21 14:06] LABS: GLOMERULAR FILTRATION RATE > 60.0 (>60)
[2016-09-21 14:07] LABS: ALBUMIN 3.9 GM/DL (3.2-5.2); CALCIUM LEVEL 8.4 MG/DL (8.5-10.1); TOTAL PROTEIN 6.9 GM/DL (6.4-8.2)
== END ==
LOC: M SFHCPLAZ 11:25
PROVIDERS: ATTEND Family Medicine
DX: R10.10 Upper abdominal pain, unspecified (principal); R79.9 Abnormal finding of blood chemistry, unspecified; R63.0 Anorexia

== ENCOUNTER 2016-10-29 11:51 | Emergency (ER) | payer OTHER ==
[~2016-10-29] VITALS: Ht 172.7 cm; Wt 61.3 kg
[~2016-10-29 11:51] MED LIST changes: +CIPR-249 PO; -CIPR500T89 PO; +LEVA1TAB2 PO; -LEVA500T PO; +LEVO250T12 PO; -LEVO250T24 PO; +METR1TAB66 PO; -METR500T10 PO; +PERC5TAB12 PO; -PERC5TAB6 PO; +TRAZ50TA11 PO; -TRAZ50TA4 PO
[2016-10-29] MEDS ORDERED: PROMETHAZINE INJ 25 MG/ML VIAL (J2550) IV ONE ×2 (13:15→20:15)
[2016-10-29] MEDS ORDERED: NS 1,000 ML IV ONE (13:15)
[2016-10-29] MEDS: HYDROmorphone HCL 1 MG/ML SYRINGE (J1170) IV PRN ×4 (13:36→21:20)
[2016-10-29 13:40] LABS: BASO # 0.1 K/mm3 (0.0-0.2); EOS % 0.3 % (0.0-3.0); LARGE UNSTAINED CELL # 0.1 K/mm3 (0.0-0.4); LYMPH # 1.2 K/mm3 (1.5-4.5); LYMPH % 9.6 % (24.0-44.0); MEAN CORPUSCULAR HEMOGLOBIN 31.2 pg (27.0-33.0); MEAN CORPUSCULAR HGB CONC 34.7 g/dl (32.0-36.5); MEAN CORPUSCULAR VOLUME 89.8 fl (80.0-96.0); MONO # 0.5 K/mm3 (0.0-0.8); MONO % 3.8 % (0.0-5.0); NEUTROPHILS # 10.1 K/mm3 (1.8-7.7); NEUTROPHILS % 84.4 % (36.0-66.0); PLATELET COUNT, AUTOMATED 183 k/mm3 (150-450); RED CELL DISTRIBUTION WIDTH 12.8 % (11.5-14.5)
[2016-10-29 13:45] LABS: INR 0.96
[2016-10-29 14:02] LABS: ALBUMIN 4.4 GM/DL (3.2-5.2); ALBUMIN/GLOBULIN RATIO 1.38 (1.00-1.93); ALKALINE PHOSPHATASE 94 U/L (45-117); ALT/SGPT 17 U/L (12-78); AMYLASE 57 U/L (25-115); ANION GAP 8 MEQ/L (8-16); AST/SGOT 14 U/L (15-37); BILIRUBIN,DIRECT 0.2 MG/DL (0.0-0.2); BILIRUBIN,TOTAL 0.9 MG/DL (0.2-1.0); BLOOD UREA NITROGEN 16 MG/DL (7-18); CALCIUM LEVEL 9.1 MG/DL (8.5-10.1); CARBON DIOXIDE LEVEL 25 MEQ/L (21-32); CHLORIDE LEVEL 108 MEQ/L (98-107); CREATININE FOR GFR 1.05 MG/DL (0.70-1.30); GLOMERULAR FILTRATION RATE > 60.0 (>60); GLUCOSE, FASTING 129 MG/DL (70-105); POTASSIUM SERUM 4.1 MEQ/L (3.5-5.1); SODIUM LEVEL 141 MEQ/L (136-145); TOTAL PROTEIN 7.6 GM/DL (6.4-8.2)
[2016-10-29] MEDS ORDERED: ISOVUE-370 76% 100ML VIAL (Q9967) As Ordered ONE (14:15)
--- NOTE | 2016-10-29 15:18 | REP ---
CT ABDOMEN AND PELVIS WITH IV CONTRAST: TECHNIQUE: Axial contrast enhanced images from the lung bases to the pubic symphysis using 100 mL Isovue 370 intravenous contrast material with multiplanar reformations. Visualized lung bases demonstrate no evidence of acute infiltrate. The liver, spleen, adrenals, pancreas, and kidneys are unremarkable and unchanged in appearance. There are moderate atherosclerotic calcifications of the abdominal aorta without aneurysm. I see no adenopathy. There is no free air or free fluid. There is scattered colonic diverticulosis without CT evidence of acute diverticulitis. The appendix is not inflamed. No pelvic mass is seen. Urinary bladder is not well distended not well evaluated. There are degenerative changes of the spine. IMPRESSION: No acute abnormalities detected. No evidence of appendicitis. Colonic diverticulosis without evidence of acute diverticulitis. Signed by Scotty Jones MD 10/29/2016 08:20 P
[2016-10-29 22:10] VITALS: BP 135/77
[2016-10-29] MEDS ORDERED: OXYCODONE/APAP 5MG/325MG(BULK FOR ED) 1 TABLET PO ONE (22:30)
--- NOTE | 2016-10-30 09:19 | ECGEPIP ---
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
== END 2016-10-29 22:41 | disposition home or self-care (01) ==
LOC: EDBD 11:51 → M ED 12:54
DX: K29.70 Gastritis, unspecified, without bleeding (principal); K86.1 Other chronic pancreatitis; R91.1 Solitary pulmonary nodule; F17.210 Nicotine dependence, cigarettes, uncomplicated
CPT/HCPCS: 74177; 80048; 80076; 81001; 82150; 82550; 82553; 83605; 83690; 85025; 85610; 85730; 87086; 93005; 93041; 96361; 96374; 96375; 96376; 99285; J1170; Q9967

== ENCOUNTER 2017-06-05 07:31 | Inpatient (IN) | payer SELFPAY, OTHER ==
[2017-06-05] MEDS: ONDANSETRON 4MG/2ML VIAL (J2405) IV ×2 (08:13→17:43)
[2017-06-05] MEDS: NS 1,000 ML IV ×2 (08:13→10:20)
[2017-06-05 08:14] LABS: BASO # 0.1 10^3/uL (0.0-0.2); BASO % 0.6 % (0.0-1.0); EOS % 0.2 % (0.0-3.0); HEMATOCRIT 58.2 % (42.0-52.0); IMMATURE GRANULOCYTE # 0.1 10^3/uL (0-0); IMMATURE GRANULOCYTE % 0.5 % (0-0); LYMPH # 2.2 10^3/uL (1.5-4.5); LYMPH % 15.3 % (24.0-44.0); MEAN CORPUSCULAR HEMOGLOBIN 30.2 pg (27.0-33.0); MEAN CORPUSCULAR HGB CONC 35.4 g/dl (32.0-36.5); MEAN CORPUSCULAR VOLUME 85.3 fl (80.0-96.0); MONO % 6.9 % (0.0-5.0); NEUTROPHILS # 11.1 10^3/uL (1.8-7.7); NEUTROPHILS % 76.5 % (36.0-66.0); PLATELET COUNT, AUTOMATED 255 10^3/uL (150-450); RED BLOOD COUNT 6.82 10^6/uL (4.30-6.10); RED CELL DISTRIBUTION WIDTH 12.7 % (11.5-14.5); WHITE BLOOD COUNT 14.5 10^3/uL (4.0-10.0)
[2017-06-05] MEDS: PANTOPRAZOLE 40MG INJ (PROTONIX) (C9113) IV ×2 (08:17→20:26)
[2017-06-05 08:18] LABS: HEMOGLOBIN 20.6 g/dl (14.0-18.0)
[2017-06-05] MEDS: MORPHINE 4 MG/ML 1ML SYRINGE IV ×6 (08:18→20:26)
[2017-06-05] MEDS: METOCLOPRAMIDE INJ 10MG/2ML VIAL (J2765) IV (08:18)
[2017-06-05 09:08] LABS: ALBUMIN 4.9 GM/DL (3.2-5.2); ALBUMIN/GLOBULIN RATIO 1.44 (1.00-1.93); ALKALINE PHOSPHATASE 112 U/L (45-117); ALT/SGPT 17 U/L (12-78); ANION GAP 10 MEQ/L (8-16); AST/SGOT 12 U/L (7-37); BILIRUBIN,DIRECT 0.2 MG/DL (0.0-0.2); BILIRUBIN,TOTAL 0.9 MG/DL (0.2-1.0); BLOOD UREA NITROGEN 22 MG/DL (7-18); CARBON DIOXIDE LEVEL 24 MEQ/L (21-32); CHLORIDE LEVEL 106 MEQ/L (98-107); CREATININE FOR GFR 1.57 MG/DL (0.70-1.30); GLOMERULAR FILTRATION RATE 50.4 (>60); GLUCOSE, FASTING 149 MG/DL (70-100); LIPASE 144 U/L (73-393); POTASSIUM SERUM 4.1 MEQ/L (3.5-5.1); SODIUM LEVEL 140 MEQ/L (136-145); TOTAL PROTEIN 8.3 GM/DL (6.4-8.2)
[2017-06-05] MEDS ORDERED: ISOVUE-370 76% 100ML VIAL (Q9967) As Ordered (09:21)
[2017-06-05] MEDS: PROMETHAZINE INJ 25 MG/ML VIAL (J2550) IV ×2 (10:10→11:23)
[2017-06-05] MEDS: NS 1,500 ML IV (12:01)
[2017-06-05 12:13] LABS: CPK CREATINE PHOSPHOKINASE 60 U/L (39-308); MB/CK RELATIVE INDEX 1.66 (< OR =4); TROPONIN I < 0.02 NG/ML (< 0.10)
[2017-06-05 16:11] LABS: APPEARANCE, URINE HAZY (CLEAR); BACTERIA, URINE AUTO NEGATIVE (NEGATIVE); BILIRUBIN, URINE AUTO NEGATIVE (NEGATIVE); BLOOD, URINE BLOOD 1+ (NEGATIVE); COLOR, URINE YELLOW (YELLOW); GLUCOSE, URINE (UA) AUTO NEGATIVE (NEGATIVE); KETONE, URINE AUTO TRACE mg/dL (NEGATIVE); LEUKOCYTE ESTERASE, URINE AUTO NEGATIVE (NEGATIVE); MUCUS, URINE SMALL (NEGATIVE); NITRITE, URINE AUTO NEGATIVE (NEGATIVE); PROTEIN, URINE AUTO 2+ mg/dL (NEGATIVE); RBC, URINE AUTO 3 /HPF (0-3); SPECIFIC GRAVITY URINE AUTO 1.058 (1.002-1.035); SQUAMOUS EPITHELIAL CELL UR AU 2 /HPF (0-6); UROBILINOGEN, URINE AUTO 0.2 mg/dL (0.0-2.0); WBC, URINE AUTO 4 /HPF (0-3)
[2017-06-05] MEDS: HEPARIN SOD (PORCINE) 5000 UNITS/ML VIAL SQ (20:26)
[2017-06-05] MEDS: NICOTINE 21MG/24HR 1 EA TRANSDERMAL TD (20:27)
[2017-06-05 20:44] LABS: CPK CREATINE PHOSPHOKINASE 58 U/L (39-308); MB/CK RELATIVE INDEX 1.72 (< OR =4); TROPONIN I < 0.02 NG/ML (< 0.10)
[2017-06-06] MEDS: ONDANSETRON 4MG/2ML VIAL (J2405) IV
[2017-06-06] MEDS: MORPHINE 4 MG/ML 1ML SYRINGE IV ×3 (02:48→05:10)
[2017-06-06 06:41] LABS: HEMATOCRIT 44.8 % (42.0-52.0); MEAN CORPUSCULAR HEMOGLOBIN 30.5 pg (27.0-33.0); MEAN CORPUSCULAR HGB CONC 33.7 g/dl (32.0-36.5); MEAN CORPUSCULAR VOLUME 90.5 fl (80.0-96.0); RED BLOOD COUNT 4.95 10^6/uL (4.30-6.10); RED CELL DISTRIBUTION WIDTH 12.3 % (11.5-14.5); WHITE BLOOD COUNT 10.6 10^3/uL (4.0-10.0)
[2017-06-06 06:42] LABS: HEMOGLOBIN 15.1 g/dl (14.0-18.0)
[2017-06-06 06:43] LABS: PLATELET COUNT, AUTOMATED 140 10^3/uL (150-450)
[2017-06-06 07:15] LABS: ANION GAP 4 MEQ/L (8-16); BLOOD UREA NITROGEN 18 MG/DL (7-18); CALCIUM LEVEL 8.2 MG/DL (8.5-10.1); CARBON DIOXIDE LEVEL 30 MEQ/L (21-32); CHLORIDE LEVEL 107 MEQ/L (98-107); CK-MB VALUE MASS 1.7 NG/ML (0.0-3.6); CPK CREATINE PHOSPHOKINASE 98 U/L (39-308); GLOMERULAR FILTRATION RATE > 60.0 (>60); GLUCOSE, FASTING 82 MG/DL (70-100); MB/CK RELATIVE INDEX 1.73 (< OR =4); POTASSIUM SERUM 4.2 MEQ/L (3.5-5.1); SODIUM LEVEL 141 MEQ/L (136-145); TROPONIN I < 0.02 NG/ML (< 0.10)
[2017-06-06] MEDS: PANTOPRAZOLE 40MG INJ (PROTONIX) (C9113) IV (08:37)
[2017-06-06] MEDS: HEPARIN SOD (PORCINE) 5000 UNITS/ML VIAL SQ (08:38)
[2017-06-06] MEDS ORDERED: PERCOCET 5MG/325MG TAB PO (10:00)
== END 2017-06-06 15:22 | disposition home or self-care (01) | DRG 249 ==
LOC: M ED 07:31 → M ED INP 11:16 → M MSPAV 15:00
DX: K52.9 Noninfective gastroenteritis and colitis, unspecified (principal); N17.9 Acute kidney failure, unspecified; K86.1 Other chronic pancreatitis; E86.0 Dehydration; F17.210 Nicotine dependence, cigarettes, uncomplicated; R91.1 Solitary pulmonary nodule; Z88.8 Allergy status to other drugs, medicaments and biological substances

== ENCOUNTER 2017-06-08 16:00 | Inpatient (IN) | payer SELFPAY ==
[2017-06-08 16:44] LABS: BASO # 0.1 10^3/uL (0.0-0.2); BASO % 0.5 % (0.0-1.0); EOS # 0.1 10^3/uL (0.0-0.50); EOS % 0.5 % (0.0-3.0); HEMATOCRIT 51.9 % (42.0-52.0); HEMOGLOBIN 18.2 g/dl (14.0-18.0); IMMATURE GRANULOCYTE % 0.3 % (0-0); LYMPH # 1.8 10^3/uL (1.5-4.5); LYMPH % 18.6 % (24.0-44.0); MEAN CORPUSCULAR HEMOGLOBIN 30.2 pg (27.0-33.0); MEAN CORPUSCULAR HGB CONC 35.1 g/dl (32.0-36.5); MEAN CORPUSCULAR VOLUME 86.1 fl (80.0-96.0); MONO # 0.6 10^3/uL (0.0-0.8); MONO % 6.5 % (0.0-5.0); NEUTROPHILS # 6.9 10^3/uL (1.8-7.7); NEUTROPHILS % 73.6 % (36.0-66.0); PLATELET COUNT, AUTOMATED 196 10^3/uL (150-450); RED BLOOD COUNT 6.03 10^6/uL (4.30-6.10); WHITE BLOOD COUNT 9.4 10^3/uL (4.0-10.0)
[2017-06-08 17:05] LABS: ALBUMIN 4.6 GM/DL (3.2-5.2); ALBUMIN/GLOBULIN RATIO 1.28 (1.00-1.93); ALKALINE PHOSPHATASE 100 U/L (45-117); ALT/SGPT 15 U/L (12-78); ANION GAP 9 MEQ/L (8-16); AST/SGOT 11 U/L (7-37); BILIRUBIN,DIRECT 0.2 MG/DL (0.0-0.2); BILIRUBIN,TOTAL 0.7 MG/DL (0.2-1.0); BLOOD UREA NITROGEN 15 MG/DL (7-18); CALCIUM LEVEL 10.2 MG/DL (8.5-10.1); CARBON DIOXIDE LEVEL 24 MEQ/L (21-32); CHLORIDE LEVEL 110 MEQ/L (98-107); CREATININE FOR GFR 1.02 MG/DL (0.70-1.30); GLOMERULAR FILTRATION RATE > 60.0 (>60); GLUCOSE, FASTING 112 MG/DL (70-100); LIPASE 161 U/L (73-393); SODIUM LEVEL 143 MEQ/L (136-145); TOTAL PROTEIN 8.2 GM/DL (6.4-8.2)
[2017-06-08 17:23] LABS: LACTIC ACID SEPSIS PROTOCOL 2.3 MMOL/L (0.4-2.0)
[2017-06-08] MEDS: NS 1,000 ML IV ×2 (17:30→20:20)
[2017-06-08] MEDS: MORPHINE 4 MG/ML 1ML SYRINGE IV ×3 (17:38→23:09)
[2017-06-08] MEDS: ONDANSETRON 4MG/2ML VIAL (J2405) IV ×2 (17:38→19:08)
[2017-06-08] MEDS: MORPHINE 2 MG/ML 1ML SYRINGE IV ×2 (18:30→19:07)
[2017-06-08] MEDS ORDERED: ACETAMINOPHEN TAB 650MG DOSE (2X325MG) PO (18:30)
[2017-06-08 19:27] LABS: AMYLASE 65 U/L (25-115)
[2017-06-08] MEDS: NICOTINE 14 MG/24 HR TRANSDERMAL TD (20:00)
[2017-06-08] MEDS: PERCOCET 5MG/325MG TAB PO (20:34)
[2017-06-08] MEDS: METOCLOPRAMIDE INJ 10MG/2ML VIAL (J2765) IV (20:34)
[2017-06-08] MEDS: HEPARIN SOD (PORCINE) 5000 UNITS/ML VIAL SC (21:09)
[2017-06-09] MEDS: ONDANSETRON 4MG/2ML VIAL (J2405) IV ×2 (00:03→06:09)
[2017-06-09] MEDS: PERCOCET 5MG/325MG TAB PO ×5 (00:47→19:38)
[2017-06-09] MEDS: MORPHINE 4 MG/ML 1ML SYRINGE IV ×2 (01:37→04:35)
[2017-06-09] MEDS: NS 1,000 ML IV ×4 (02:39→22:45)
[2017-06-09] MEDS: METOCLOPRAMIDE INJ 10MG/2ML VIAL (J2765) IV (02:39)
[2017-06-09] MEDS: HEPARIN SOD (PORCINE) 5000 UNITS/ML VIAL SC ×3 (06:09→21:15)
[2017-06-09 06:25] LABS: MEAN CORPUSCULAR HEMOGLOBIN 29.9 pg (27.0-33.0); MEAN CORPUSCULAR HGB CONC 33.7 g/dl (32.0-36.5); MEAN CORPUSCULAR VOLUME 88.7 fl (80.0-96.0); PLATELET COUNT, AUTOMATED 142 10^3/uL (150-450); RED BLOOD COUNT 4.62 10^6/uL (4.30-6.10); RED CELL DISTRIBUTION WIDTH 12.3 % (11.5-14.5); WHITE BLOOD COUNT 8.6 10^3/uL (4.0-10.0)
[2017-06-09 06:42] LABS: HEMOGLOBIN 13.8 g/dl (14.0-18.0)
[2017-06-09 06:49] LABS: ANION GAP 8 MEQ/L (8-16); BLOOD UREA NITROGEN 13 MG/DL (7-18); CARBON DIOXIDE LEVEL 26 MEQ/L (21-32); CHLORIDE LEVEL 108 MEQ/L (98-107); CREATININE FOR GFR 0.72 MG/DL (0.70-1.30); GLOMERULAR FILTRATION RATE > 60.0 (>60); GLUCOSE, FASTING 81 MG/DL (70-100); POTASSIUM SERUM 3.7 MEQ/L (3.5-5.1); SODIUM LEVEL 142 MEQ/L (136-145)
[2017-06-09 07:17] LABS: CALCIUM LEVEL 8.1 MG/DL (8.5-10.1)
[2017-06-09] MEDS ORDERED: PERCOCET 5MG/325MG TAB PO (09:15)
[2017-06-09] MEDS ORDERED: MORPHINE 2 MG/ML 1ML SYRINGE IV (09:15)
[2017-06-09] MEDS: PANTOPRAZOLE 40MG INJ (PROTONIX) (C9113) IV ×2 (09:48→21:15)
[2017-06-09] MEDS: SUCRALFATE 1 GM TAB PO ×3 (13:06→21:15)
[2017-06-09 13:35] LABS: LACTIC ACID SEPSIS PROTOCOL 1.2 MMOL/L (0.4-2.0)
[2017-06-10] MEDS: HEPARIN SOD (PORCINE) 5000 UNITS/ML VIAL SC ×3 (06:21→21:15)
[2017-06-10 08:09] LABS: HEMATOCRIT 38.4 % (42.0-52.0); HEMOGLOBIN 13.1 g/dl (14.0-18.0); MEAN CORPUSCULAR HGB CONC 34.1 g/dl (32.0-36.5); MEAN CORPUSCULAR VOLUME 88.1 fl (80.0-96.0); PLATELET COUNT, AUTOMATED 125 10^3/uL (150-450); RED BLOOD COUNT 4.36 10^6/uL (4.30-6.10); RED CELL DISTRIBUTION WIDTH 11.9 % (11.5-14.5)
[2017-06-10] MEDS: SUCRALFATE 1 GM TAB PO ×4 (08:13→21:15)
[2017-06-10] MEDS: PANTOPRAZOLE 40MG TAB (PROTONIX) PO ×2 (08:13→21:15)
[2017-06-10 08:30] LABS: ANION GAP 8 MEQ/L (8-16); BLOOD UREA NITROGEN 8 MG/DL (7-18); CALCIUM LEVEL 7.5 MG/DL (8.5-10.1); CARBON DIOXIDE LEVEL 26 MEQ/L (21-32); CHLORIDE LEVEL 108 MEQ/L (98-107); CREATININE FOR GFR 0.61 MG/DL (0.70-1.30); GLOMERULAR FILTRATION RATE > 60.0 (>60); GLUCOSE, FASTING 79 MG/DL (70-100); POTASSIUM SERUM 3.6 MEQ/L (3.5-5.1); SODIUM LEVEL 142 MEQ/L (136-145)
[2017-06-10] MEDS: ONDANSETRON 4 MG ORAL DISINTEGRATING TAB (S0181) PO ×2 (14:46→18:45)
[2017-06-10] MEDS: PERCOCET 5MG/325MG TAB PO (15:43)
[2017-06-10] MEDS: MORPHINE 2 MG/ML 1ML SYRINGE IV ×2 (17:00→23:11)
[2017-06-10] MEDS ORDERED: traMADol 50 MG TAB PO (20:30)
[2017-06-10] MEDS: traMADol 50 MG TAB PO (21:16)
[2017-06-11] MEDS: HEPARIN SOD (PORCINE) 5000 UNITS/ML VIAL SC ×2 (06:49→13:16)
[2017-06-11] MEDS: SUCRALFATE 1 GM TAB PO ×3 (06:49→17:18)
[2017-06-11 06:55] LABS: HEMATOCRIT 39.7 % (42.0-52.0); HEMOGLOBIN 13.9 g/dl (14.0-18.0); MEAN CORPUSCULAR HEMOGLOBIN 29.9 pg (27.0-33.0); MEAN CORPUSCULAR VOLUME 85.4 fl (80.0-96.0); PLATELET COUNT, AUTOMATED 151 10^3/uL (150-450); RED BLOOD COUNT 4.65 10^6/uL (4.30-6.10); RED CELL DISTRIBUTION WIDTH 11.9 % (11.5-14.5); WHITE BLOOD COUNT 7.6 10^3/uL (4.0-10.0)
[2017-06-11] MEDS: MORPHINE 2 MG/ML 1ML SYRINGE IV ×2 (06:56→13:17)
[2017-06-11 07:00] LABS: ANION GAP 7 MEQ/L (8-16); BLOOD UREA NITROGEN 6 MG/DL (7-18); CARBON DIOXIDE LEVEL 28 MEQ/L (21-32); CHLORIDE LEVEL 106 MEQ/L (98-107); CREATININE FOR GFR 0.61 MG/DL (0.70-1.30); GLOMERULAR FILTRATION RATE > 60.0 (>60); GLUCOSE, FASTING 84 MG/DL (70-100); POTASSIUM SERUM 3.2 MEQ/L (3.5-5.1); SODIUM LEVEL 141 MEQ/L (136-145)
[2017-06-11] MEDS: PANTOPRAZOLE 40MG TAB (PROTONIX) PO (08:23)
[2017-06-11] MEDS: POTASSIUM CHLORIDE 10 MEQ SR TABLET PO (08:23)
[2017-06-11] MEDS: NORCO, ANEXSIA 5/325MG TABLET (HYDROcodone/ACETAMINOPHEN) PO ×2 (14:39→18:54)
[2017-06-11] MEDS ORDERED: NORCO, ANEXSIA 5/325MG TABLET (HYDROcodone/ACETAMINOPHEN) PO (14:45)
== END 2017-06-11 18:57 | disposition home or self-care (01) | DRG 241 ==
LOC: M MS4PR 18:28 → M ED 16:00 → M ED INP 18:28 → M MS4PR 20:00
DX: K29.70 Gastritis, unspecified, without bleeding (principal); E87.2 Acidosis; K86.1 Other chronic pancreatitis; E86.0 Dehydration; F17.210 Nicotine dependence, cigarettes, uncomplicated; R91.1 Solitary pulmonary nodule; Z88.8 Allergy status to other drugs, medicaments and biological substances

== ENCOUNTER 2017-11-17 17:07 | Emergency (ER) | payer OTHER, MEDICAID ==
[2017-11-17 18:10] LABS: BASO # 0.1 10^3/uL (0.0-0.2); BASO % 0.4 % (0.0-1.0); EOS % 0.2 % (0.0-3.0); HEMATOCRIT 56.4 % (42.0-52.0); HEMOGLOBIN 19.2 g/dl (13.5-17.5); IMMATURE GRANULOCYTE % 0.3 % (0-3.0); LYMPH # 1.4 10^3/uL (1.5-4.5); MEAN CORPUSCULAR HEMOGLOBIN 30.2 pg (27.0-33.0); MEAN CORPUSCULAR VOLUME 88.8 fl (80.0-96.0); MONO # 0.6 10^3/uL (0.0-0.8); MONO % 4.9 % (0.0-5.0); NEUTROPHILS # 10.5 10^3/uL (1.8-7.7); NEUTROPHILS % 83.2 % (36.0-66.0); PLATELET COUNT, AUTOMATED 218 10^3/uL (150-450); RED BLOOD COUNT 6.35 10^6/uL (4.30-6.10); RED CELL DISTRIBUTION WIDTH 12.7 % (11.5-14.5); WHITE BLOOD COUNT 12.6 10^3/uL (4.0-10.0)
[2017-11-17] MEDS: HYDROMORPHONE HCL 0.5 MG/ 0.5 ML SYRINGE (J1170 PER 1) IV ×4 (18:10→22:09)
[2017-11-17] MEDS: NS 1,000 ML IV (18:10)
[2017-11-17] MEDS: ONDANSETRON 4MG/2ML VIAL (J2405) IV ×2 (18:10→20:34)
[2017-11-17 18:36] LABS: LACTIC ACID SEPSIS PROTOCOL 1.2 MMOL/L (0.4-2.0)
[2017-11-17 18:39] LABS: ALBUMIN 4.5 GM/DL (3.2-5.2); ALKALINE PHOSPHATASE 123 U/L (45-117); ALT/SGPT 25 U/L (12-78); AMYLASE 59 U/L (25-115); ANION GAP 10 MEQ/L (8-16); AST/SGOT 29 U/L (7-37); BILIRUBIN,DIRECT 0.1 MG/DL (0.0-0.2); BLOOD UREA NITROGEN 17 MG/DL (7-18); CALCIUM LEVEL 9.6 MG/DL (8.5-10.1); CARBON DIOXIDE LEVEL 21 MEQ/L (21-32); CHLORIDE LEVEL 109 MEQ/L (98-107); CK-MB VALUE MASS 1.8 NG/ML (<3.6); CPK CREATINE PHOSPHOKINASE 170 U/L (39-308); CREATININE FOR GFR 1.07 MG/DL (0.70-1.30); GLOMERULAR FILTRATION RATE > 60.0 (>60); GLUCOSE, FASTING 118 MG/DL (70-100); LIPASE 98 U/L (73-393); MB/CK RELATIVE INDEX 1.05 (< OR =4); SODIUM LEVEL 140 MEQ/L (136-145); TOTAL PROTEIN 8.6 GM/DL (6.4-8.2); TROPONIN I < 0.02 NG/ML (< 0.10)
[2017-11-17 18:40] LABS: POTASSIUM SERUM 5.5 MEQ/L (3.5-5.1)
[2017-11-17] MEDS ORDERED: ISOVUE-370 76% 100ML VIAL (Q9967) As Ordered (18:41)
[2017-11-17 20:51] LABS: KETONE, URINE AUTO RFX TRACE mg/dL (NEGATIVE); LEUKOCYTE ESTERASE UR AUTO RFX NEGATIVE (NEGATIVE); MUCUS, URINE RFX SMALL (NEGATIVE); NITRITE, URINE AUTO RFX NEGATIVE (NEGATIVE); RBC, URINE AUTO RFX 2 /HPF (0-3); SQUAM EPITHELIAL CELL UR AURFX 1 /HPF (0-6); WBC, URINE AUTO RFX 3 /HPF (0-3)
[2017-11-17 21:38] LABS: SPECIFIC GRAVITY UR AUTO RFX >1.060 (1.002-1.035)
[2017-11-17] MEDS: OXYCODONE/APAP 5MG/325MG(BULK FOR ED) 1 TABLET PO (22:09)
== END 2017-11-17 22:32 | disposition home or self-care (01) ==
LOC: M ED 17:07
DX: K86.1 Other chronic pancreatitis (principal); R11.2 Nausea with vomiting, unspecified; F17.200 Nicotine dependence, unspecified, uncomplicated
CPT/HCPCS: J2405

== ENCOUNTER 2017-11-19 15:21 | Emergency (ER) | payer OTHER ==
[2017-11-19] MEDS: NS 1,000 ML IV (17:26)
[2017-11-19] MEDS: ONDANSETRON 4MG/2ML VIAL (J2405) IV (17:26)
[2017-11-19 17:32] LABS: BASO # 0.1 10^3/uL (0.0-0.2); BASO % 0.5 % (0.0-1.0); EOS % 0.2 % (0.0-3.0); HEMATOCRIT 54.3 % (42.0-52.0); HEMOGLOBIN 18.9 g/dl (13.5-17.5); IMMATURE GRANULOCYTE % 0.4 % (0-3.0); LYMPH # 1.3 10^3/uL (1.5-4.5); LYMPH % 12.9 % (24.0-44.0); MEAN CORPUSCULAR HEMOGLOBIN 30.2 pg (27.0-33.0); MEAN CORPUSCULAR HGB CONC 34.8 g/dl (32.0-36.5); MEAN CORPUSCULAR VOLUME 86.7 fl (80.0-96.0); MONO # 0.6 10^3/uL (0.0-0.8); MONO % 5.4 % (0.0-5.0); NEUTROPHILS # 8.4 10^3/uL (1.8-7.7); NEUTROPHILS % 80.6 % (36.0-66.0); PLATELET COUNT, AUTOMATED 191 10^3/uL (150-450); RED BLOOD COUNT 6.26 10^6/uL (4.30-6.10); RED CELL DISTRIBUTION WIDTH 12.7 % (11.5-14.5); WHITE BLOOD COUNT 10.4 10^3/uL (4.0-10.0)
[2017-11-19 17:52] LABS: ALBUMIN 4.7 GM/DL (3.2-5.2); ALBUMIN/GLOBULIN RATIO 1.21 (1.00-1.93); ALKALINE PHOSPHATASE 114 U/L (45-117); ALT/SGPT 18 U/L (12-78); ANION GAP 7 MEQ/L (8-16); AST/SGOT 13 U/L (7-37); BILIRUBIN,DIRECT 0.2 MG/DL (0.0-0.2); BLOOD UREA NITROGEN 15 MG/DL (7-18); CALCIUM LEVEL 9.6 MG/DL (8.5-10.1); CARBON DIOXIDE LEVEL 28 MEQ/L (21-32); CHLORIDE LEVEL 105 MEQ/L (98-107); CREATININE FOR GFR 1.11 MG/DL (0.70-1.30); GLOMERULAR FILTRATION RATE > 60.0 (>60); GLUCOSE, FASTING 144 MG/DL (70-100); LIPASE 124 U/L (73-393); POTASSIUM SERUM 3.8 MEQ/L (3.5-5.1); SODIUM LEVEL 140 MEQ/L (136-145); TOTAL PROTEIN 8.6 GM/DL (6.4-8.2)
[2017-11-19 17:53] LABS: LACTIC ACID SEPSIS PROTOCOL 1.4 MMOL/L (0.4-2.0)
[2017-11-19] MEDS: GI COCKTAIL 50ML BTL(HYOSCYAMINE/MAALOX/LIDOCAINE VISCOUS)(1:3:1) PO (17:57)
[2017-11-19] MEDS: PANTOPRAZOLE 40MG INJ (PROTONIX) (C9113) IV (17:59)
[2017-11-19] MEDS: HYDROMORPHONE HCL 0.5 MG/ 0.5 ML SYRINGE (J1170 PER 1) IV (18:56)
[2017-11-19] MEDS: PROMETHAZINE INJ 25 MG/ML VIAL (J2550) IV (18:56)
== END 2017-11-19 20:55 | disposition home or self-care (01) ==
LOC: M ED 15:21
DX: G89.29 Other chronic pain (principal); R10.9 Unspecified abdominal pain; R11.2 Nausea with vomiting, unspecified; D45 Polycythemia vera; I10 Essential (primary) hypertension; R51 Headache; J44.9 Chronic obstructive pulmonary disease, unspecified; R91.1 Solitary pulmonary nodule; K57.92 Diverticulitis of intestine, part unspecified, without perforation or abscess without bleeding; F41.9 Anxiety disorder, unspecified; F32.9 Major depressive disorder, single episode, unspecified; Z96.89 Presence of other specified functional implants; Z72.0 Tobacco use; Z79.899 Other long term (current) drug therapy; Z88.8 Allergy status to other drugs, medicaments and biological substances
CPT/HCPCS: C9113

== ENCOUNTER → 2017-12-18 | Outpatient (REF) | payer OTHER ==
[2017-12-18 12:04] LABS: BASO # 0.1 10^3/uL (0.0-0.2); BASO % 0.9 % (0.0-1.0); EOS # 0.1 10^3/uL (0.0-0.50); EOS % 1.1 % (0.0-3.0); HEMATOCRIT 49.7 % (42.0-52.0); HEMOGLOBIN 17.2 g/dl (13.5-17.5); IMMATURE GRANULOCYTE % 0.3 % (0-3.0); LYMPH # 1.7 10^3/uL (1.5-4.5); LYMPH % 24.5 % (24.0-44.0); MEAN CORPUSCULAR HEMOGLOBIN 30.4 pg (27.0-33.0); MEAN CORPUSCULAR HGB CONC 34.6 g/dl (32.0-36.5); MEAN CORPUSCULAR VOLUME 87.8 fl (80.0-96.0); MONO # 0.5 10^3/uL (0.0-0.8); MONO % 7.1 % (0.0-5.0); NEUTROPHILS # 4.6 10^3/uL (1.8-7.7); NEUTROPHILS % 66.1 % (36.0-66.0); PLATELET COUNT, AUTOMATED 156 10^3/uL (150-450); RED BLOOD COUNT 5.66 10^6/uL (4.30-6.10); RED CELL DISTRIBUTION WIDTH 12.7 % (11.5-14.5)
[2017-12-18 12:09] LABS: REASON FOR REVIEW RBC MORPHOLOGY; SLIDE REVIEW Report; SOURCE PERIPHERAL SMEAR
[2017-12-19 10:47] LABS: ERYTHROPOIETIN 4.2 mIU/mL (2.6-18.5)
[2017-12-19 14:17] LABS: H PYLORI SERUM QUANT IgG ABY 0.29 (0.00-0.79)
== END ==
LOC: M SFHCPLAZ 08:50
DX: D58.2 Other hemoglobinopathies (principal); R10.13 Epigastric pain
CPT/HCPCS: 82668

== ENCOUNTER 2018-01-05 00:21 | Emergency (ER) | payer OTHER, MEDICAID, MEDICARE ==
[2018-01-05 00:59] LABS: BASO # 0.1 10^3/uL (0.0-0.2); BASO % 0.4 % (0.0-1.0); HEMATOCRIT 61.3 % (42.0-52.0); IMMATURE GRANULOCYTE % 0.5 % (0-3.0); LYMPH # 1.1 10^3/uL (1.5-4.5); MEAN CORPUSCULAR HEMOGLOBIN 30.4 pg (27.0-33.0); MEAN CORPUSCULAR HGB CONC 34.1 g/dl (32.0-36.5); MEAN CORPUSCULAR VOLUME 89.1 fl (80.0-96.0); MONO # 1.2 10^3/uL (0.0-0.8); MONO % 5.3 % (0.0-5.0); NEUTROPHILS # 19.8 10^3/uL (1.8-7.7); NEUTROPHILS % 88.8 % (36.0-66.0); PLATELET COUNT, AUTOMATED 275 10^3/uL (150-450); RED BLOOD COUNT 6.88 10^6/uL (4.30-6.10); RED CELL DISTRIBUTION WIDTH 13.5 % (11.5-14.5); WHITE BLOOD COUNT 22.3 10^3/uL (4.0-10.0)
[2018-01-05 01:18] LABS: HEMOGLOBIN 20.9 g/dl (13.5-17.5)
[2018-01-05 01:30] LABS: ALBUMIN 5.1 GM/DL (3.2-5.2); ALBUMIN/GLOBULIN RATIO 1.21 (1.00-1.93); ALKALINE PHOSPHATASE 125 U/L (45-117); ALT/SGPT 18 U/L (12-78); ANION GAP 15 MEQ/L (8-16); AST/SGOT 13 U/L (7-37); BILIRUBIN,DIRECT 0.2 MG/DL (0.0-0.2); BILIRUBIN,TOTAL 0.8 MG/DL (0.2-1.0); BLOOD UREA NITROGEN 22 MG/DL (7-18); CALCIUM LEVEL 10.5 MG/DL (8.5-10.1); CARBON DIOXIDE LEVEL 20 MEQ/L (21-32); CHLORIDE LEVEL 112 MEQ/L (98-107); CREATININE FOR GFR 2.71 MG/DL (0.70-1.30); ETHYL ALCOHOL (ETHANOL) < 0.003 % (0.000-0.010); GLOMERULAR FILTRATION RATE 26.9 (>60); GLUCOSE, FASTING 157 MG/DL (70-100); LIPASE 121 U/L (73-393); POTASSIUM SERUM 4.5 MEQ/L (3.5-5.1); SODIUM LEVEL 147 MEQ/L (136-145); TOTAL PROTEIN 9.3 GM/DL (6.4-8.2)
[2018-01-05] MEDS: diphenhydrAMINE INJ 50MG/ML VIAL (J1200) IV (01:34)
[2018-01-05] MEDS: MORPHINE 4 MG/ML 1ML VIAL/SYRINGE (J2270) IV ×2 (01:35→04:44)
[2018-01-05] MEDS: NS 1,000 ML IV (01:37)
[2018-01-05] MEDS: HALOPERIDOL 5 MG/ML VIAL (J1630) IV (01:49)
[2018-01-05] MEDS: PANTOPRAZOLE 40MG INJ (PROTONIX) (C9113) IV (01:49)
[2018-01-05] MEDS ORDERED: GASTROGRAFIN SOLUTION 30ML (Q9963) As Ordered (01:51)
== END 2018-01-05 05:06 | disposition home or self-care (01) ==
LOC: M ED 00:21
DX: R11.10 Vomiting, unspecified (principal); E86.0 Dehydration; D75.1 Secondary polycythemia; J44.9 Chronic obstructive pulmonary disease, unspecified; K21.9 Gastro-esophageal reflux disease without esophagitis; F10.11 Alcohol abuse, in remission; Z87.19 Personal history of other diseases of the digestive system; Z79.899 Other long term (current) drug therapy
CPT/HCPCS: C9113

== ENCOUNTER 2018-01-06 11:13 | Emergency (ER) | payer OTHER ==
[2018-01-06 11:41] LABS: BASO % 0.3 % (0.0-1.0); EOS % 0.2 % (0.0-3.0); HEMATOCRIT 50.7 % (42.0-52.0); IMMATURE GRANULOCYTE % 0.4 % (0-3.0); LYMPH # 1.6 10^3/uL (1.5-4.5); LYMPH % 12.5 % (24.0-44.0); MEAN CORPUSCULAR HEMOGLOBIN 30.6 pg (27.0-33.0); MEAN CORPUSCULAR HGB CONC 34.7 g/dl (32.0-36.5); MONO # 0.6 10^3/uL (0.0-0.8); MONO % 4.5 % (0.0-5.0); NEUTROPHILS # 10.5 10^3/uL (1.8-7.7); NEUTROPHILS % 82.1 % (36.0-66.0); PLATELET COUNT, AUTOMATED 203 10^3/uL (150-450); RED BLOOD COUNT 5.76 10^6/uL (4.30-6.10); RED CELL DISTRIBUTION WIDTH 12.8 % (11.5-14.5); WHITE BLOOD COUNT 12.8 10^3/uL (4.0-10.0)
[2018-01-06 11:43] LABS: HEMOGLOBIN 17.6 g/dl (13.5-17.5)
[2018-01-06] MEDS: NS 1,000 ML IV (11:44)
[2018-01-06] MEDS: ONDANSETRON 4MG/2ML VIAL (J2405) IV (11:59)
[2018-01-06] MEDS: HYDROMORPHONE HCL 0.5 MG/ 0.5 ML SYRINGE (J1170 PER 1) IV ×2 (12:03→13:32)
[2018-01-06 12:09] LABS: ALBUMIN 4.2 GM/DL (3.2-5.2); ALBUMIN/GLOBULIN RATIO 1.11 (1.00-1.93); ALKALINE PHOSPHATASE 94 U/L (45-117); ALT/SGPT 17 U/L (12-78); ANION GAP 10 MEQ/L (8-16); AST/SGOT 15 U/L (7-37); BILIRUBIN,DIRECT 0.2 MG/DL (0.0-0.2); BILIRUBIN,TOTAL 0.8 MG/DL (0.2-1.0); BLOOD UREA NITROGEN 25 MG/DL (7-18); CALCIUM LEVEL 9.6 MG/DL (8.5-10.1); CARBON DIOXIDE LEVEL 25 MEQ/L (21-32); CHLORIDE LEVEL 107 MEQ/L (98-107); CREATININE FOR GFR 1.02 MG/DL (0.70-1.30); GLUCOSE, FASTING 110 MG/DL (70-100); LIPASE 134 U/L (73-393); SODIUM LEVEL 142 MEQ/L (136-145)
[2018-01-06 12:17] LABS: GLOMERULAR FILTRATION RATE > 60.0 (>60)
== END 2018-01-06 14:22 | disposition home or self-care (01) ==
LOC: M ED 11:13
DX: E86.0 Dehydration (principal); G89.29 Other chronic pain; R10.84 Generalized abdominal pain; R11.2 Nausea with vomiting, unspecified; I10 Essential (primary) hypertension; F41.9 Anxiety disorder, unspecified; K52.9 Noninfective gastroenteritis and colitis, unspecified; Z72.0 Tobacco use; Z88.8 Allergy status to other drugs, medicaments and biological substances
CPT/HCPCS: J2405

== ENCOUNTER 2018-01-10 05:54 | Emergency (ER) | payer OTHER ==
[2018-01-10 06:38] LABS: BASO # 0.1 10^3/uL (0.0-0.2); BASO % 0.7 % (0.0-1.0); EOS # 0.1 10^3/uL (0.0-0.50); EOS % 0.8 % (0.0-3.0); HEMATOCRIT 53.3 % (42.0-52.0); HEMOGLOBIN 18.4 g/dl (13.5-17.5); IMMATURE GRANULOCYTE % 0.3 % (0-3.0); LYMPH % 23.2 % (24.0-44.0); MEAN CORPUSCULAR HEMOGLOBIN 30.2 pg (27.0-33.0); MEAN CORPUSCULAR HGB CONC 34.5 g/dl (32.0-36.5); MEAN CORPUSCULAR VOLUME 87.5 fl (80.0-96.0); MONO # 0.6 10^3/uL (0.0-0.8); MONO % 7.3 % (0.0-5.0); NEUTROPHILS # 5.8 10^3/uL (1.8-7.7); NEUTROPHILS % 67.7 % (36.0-66.0); PLATELET COUNT, AUTOMATED 204 10^3/uL (150-450); RED BLOOD COUNT 6.09 10^6/uL (4.30-6.10); RED CELL DISTRIBUTION WIDTH 12.4 % (11.5-14.5); WHITE BLOOD COUNT 8.6 10^3/uL (4.0-10.0)
[2018-01-10] MEDS: NS 1,000 ML IV (06:44)
[2018-01-10] MEDS: MORPHINE 2 MG/ML 1ML SYRINGE (J2270) IV (06:44)
[2018-01-10] MEDS: ONDANSETRON 4MG/2ML VIAL (J2405) IV ×2 (06:44→07:45)
[2018-01-10 06:48] LABS: ALBUMIN/GLOBULIN RATIO 1.18 (1.00-1.93); ALKALINE PHOSPHATASE 90 U/L (45-117); ALT/SGPT 13 U/L (12-78); AMYLASE 51 U/L (25-115); ANION GAP 9 MEQ/L (8-16); AST/SGOT 6 U/L (7-37); BILIRUBIN,DIRECT 0.2 MG/DL (0.0-0.2); BILIRUBIN,TOTAL 0.8 MG/DL (0.2-1.0); BLOOD UREA NITROGEN 24 MG/DL (7-18); CALCIUM LEVEL 9.1 MG/DL (8.5-10.1); CARBON DIOXIDE LEVEL 28 MEQ/L (21-32); CHLORIDE LEVEL 103 MEQ/L (98-107); CREATININE FOR GFR 1.03 MG/DL (0.70-1.30); GLOMERULAR FILTRATION RATE > 60.0 (>60); GLUCOSE, FASTING 100 MG/DL (70-100); LIPASE 129 U/L (73-393); POTASSIUM SERUM 3.9 MEQ/L (3.5-5.1); SODIUM LEVEL 140 MEQ/L (136-145); TOTAL PROTEIN 7.4 GM/DL (6.4-8.2)
[2018-01-10 06:49] LABS: KETONE, URINE AUTO RFX 1+ mg/dL (NEGATIVE); LEUKOCYTE ESTERASE UR AUTO RFX NEGATIVE (NEGATIVE); MUCUS, URINE RFX MODERATE (NEGATIVE); NITRITE, URINE AUTO RFX NEGATIVE (NEGATIVE); RBC, URINE AUTO RFX 2 /HPF (0-3); SPECIFIC GRAVITY UR AUTO RFX 1.033 (1.002-1.035); SQUAM EPITHELIAL CELL UR AURFX 2 /HPF (0-6); WBC, URINE AUTO RFX 6 /HPF (0-3)
[2018-01-10] MEDS ORDERED: ISOVUE-370 76% 100ML VIAL (Q9967) As Ordered (06:51)
[2018-01-10 07:00] LABS: AMPHETAMINES LEVEL URINE NEGATIVE (NEGATIVE); BARBITURATES URINE NEGATIVE (NEGATIVE); BENZODIAZEPINES URINE NEGATIVE (NEGATIVE); CANNABINOIDS URINE NEGATIVE (NEGATIVE); COCAINE METABOLITE URINE NEGATIVE (NEGATIVE); METHADONE URINE NEGATIVE (NEGATIVE); OPIATES URINE POSITIVE (NEGATIVE); PHENCYCLIDINE URINE NEGATIVE (NEGATIVE)
[2018-01-10] MEDS: MORPHINE 4 MG/ML 1ML VIAL/SYRINGE (J2270) IV (08:35)
[2018-01-10] MEDS: HYDROMORPHONE HCL 0.5 MG/ 0.5 ML SYRINGE (J1170 PER 1) IV (09:45)
== END 2018-01-10 14:09 | disposition home or self-care (01) ==
LOC: M ED 05:54
DX: K86.1 Other chronic pancreatitis (principal); I10 Essential (primary) hypertension; K21.9 Gastro-esophageal reflux disease without esophagitis; Z87.19 Personal history of other diseases of the digestive system; F33.9 Major depressive disorder, recurrent, unspecified; F41.9 Anxiety disorder, unspecified; M51.9 Unspecified thoracic, thoracolumbar and lumbosacral intervertebral disc disorder; F17.200 Nicotine dependence, unspecified, uncomplicated; Z86.711 Personal history of pulmonary embolism; Z98.890 Other specified postprocedural states; Z88.8 Allergy status to other drugs, medicaments and biological substances
CPT/HCPCS: J2270

== ENCOUNTER 2018-01-12 13:00 | Emergency (ER) | payer OTHER ==
[2018-01-12] MEDS: NS 1,000 ML IV (14:15)
[2018-01-12] MEDS: PANTOPRAZOLE 40MG INJ (PROTONIX) (C9113) IV (14:15)
[2018-01-12] MEDS: DICYCLOMINE INJ 20MG/2ML (J0500) IM (14:15)
[2018-01-12] MEDS: ONDANSETRON 4MG/2ML VIAL (J2405) IV (14:15)
[2018-01-12] MEDS: SUCRALFATE 1 GM TAB PO (14:15)
[2018-01-12 16:45] LABS: BASO # 0.1 10^3/uL (0.0-0.2); BASO % 0.6 % (0.0-1.0); EOS # 0.1 10^3/uL (0.0-0.50); EOS % 0.8 % (0.0-3.0); HEMATOCRIT 46.8 % (42.0-52.0); IMMATURE GRANULOCYTE % 0.8 % (0-3.0); LYMPH # 1.9 10^3/uL (1.5-4.5); MEAN CORPUSCULAR HEMOGLOBIN 30.2 pg (27.0-33.0); MEAN CORPUSCULAR HGB CONC 34.2 g/dl (32.0-36.5); MEAN CORPUSCULAR VOLUME 88.3 fl (80.0-96.0); MONO # 0.6 10^3/uL (0.0-0.8); MONO % 6.5 % (0.0-5.0); NEUTROPHILS # 6.1 10^3/uL (1.8-7.7); NEUTROPHILS % 69.3 % (36.0-66.0); PLATELET COUNT, AUTOMATED 180 10^3/uL (150-450); RED CELL DISTRIBUTION WIDTH 12.5 % (11.5-14.5); WHITE BLOOD COUNT 8.8 10^3/uL (4.0-10.0)
[2018-01-12 16:59] LABS: ALBUMIN 3.3 GM/DL (3.2-5.2); ALKALINE PHOSPHATASE 72 U/L (45-117); ALT/SGPT 11 U/L (12-78); ANION GAP 7 MEQ/L (8-16); AST/SGOT 6 U/L (7-37); BILIRUBIN,DIRECT 0.2 MG/DL (0.0-0.2); BILIRUBIN,TOTAL 0.6 MG/DL (0.2-1.0); BLOOD UREA NITROGEN 17 MG/DL (7-18); CALCIUM LEVEL 8.3 MG/DL (8.5-10.1); CARBON DIOXIDE LEVEL 26 MEQ/L (21-32); CHLORIDE LEVEL 109 MEQ/L (98-107); CREATININE FOR GFR 0.73 MG/DL (0.70-1.30); GLOMERULAR FILTRATION RATE > 60.0 (>60); GLUCOSE, FASTING 85 MG/DL (70-100); LIPASE 170 U/L (73-393); POTASSIUM SERUM 3.8 MEQ/L (3.5-5.1); SODIUM LEVEL 142 MEQ/L (136-145); TOTAL PROTEIN 6.6 GM/DL (6.4-8.2)
[2018-01-12] MEDS: METOCLOPRAMIDE INJ 10MG/2ML VIAL (J2765) IV (17:48)
[2018-01-12] MEDS: GI COCKTAIL 50ML BTL(HYOSCYAMINE/MAALOX/LIDOCAINE VISCOUS)(1:3:1) PO (18:15)
[2018-01-12 18:23] LABS: KETONE, URINE AUTO RFX NEGATIVE (NEGATIVE); LEUKOCYTE ESTERASE UR AUTO RFX TRACE (NEGATIVE); MUCUS, URINE RFX MODERATE (NEGATIVE); NITRITE, URINE AUTO RFX NEGATIVE (NEGATIVE); RBC, URINE AUTO RFX 3 /HPF (0-3); SPECIFIC GRAVITY UR AUTO RFX 1.031 (1.002-1.035); SQUAM EPITHELIAL CELL UR AURFX 1 /HPF (0-6); WBC, URINE AUTO RFX 11 /HPF (0-3)
== END 2018-01-12 18:53 | disposition home or self-care (01) ==
LOC: M ED 13:00
DX: R10.9 Unspecified abdominal pain (principal); I10 Essential (primary) hypertension; J44.9 Chronic obstructive pulmonary disease, unspecified; F17.200 Nicotine dependence, unspecified, uncomplicated
CPT/HCPCS: C9113

== ENCOUNTER 2018-01-15 21:37 | Emergency (ER) | payer OTHER ==
[2018-01-16 00:56] LABS: BASO # 0.1 10^3/uL (0.0-0.2); BASO % 0.7 % (0.0-1.0); EOS # 0.1 10^3/uL (0.0-0.50); EOS % 0.8 % (0.0-3.0); HEMATOCRIT 53.2 % (42.0-52.0); HEMOGLOBIN 18.1 g/dl (13.5-17.5); IMMATURE GRANULOCYTE % 0.5 % (0-3.0); LYMPH # 2.6 10^3/uL (1.5-4.5); LYMPH % 23.5 % (24.0-44.0); MEAN CORPUSCULAR HEMOGLOBIN 30.1 pg (27.0-33.0); MEAN CORPUSCULAR VOLUME 88.5 fl (80.0-96.0); MONO # 0.7 10^3/uL (0.0-0.8); MONO % 5.9 % (0.0-5.0); NEUTROPHILS # 7.6 10^3/uL (1.8-7.7); NEUTROPHILS % 68.6 % (36.0-66.0); PLATELET COUNT, AUTOMATED 210 10^3/uL (150-450); RED BLOOD COUNT 6.01 10^6/uL (4.30-6.10); RED CELL DISTRIBUTION WIDTH 12.5 % (11.5-14.5)
[2018-01-16 01:15] LABS: ALBUMIN 3.9 GM/DL (3.2-5.2); ALKALINE PHOSPHATASE 82 U/L (45-117); ALT/SGPT 18 U/L (12-78); ANION GAP 10 MEQ/L (8-16); AST/SGOT 11 U/L (7-37); BILIRUBIN,DIRECT 0.1 MG/DL (0.0-0.2); BILIRUBIN,TOTAL 0.6 MG/DL (0.2-1.0); BLOOD UREA NITROGEN 11 MG/DL (7-18); CALCIUM LEVEL 9.1 MG/DL (8.5-10.1); CARBON DIOXIDE LEVEL 26 MEQ/L (21-32); CHLORIDE LEVEL 107 MEQ/L (98-107); GLOMERULAR FILTRATION RATE > 60.0 (>60); GLUCOSE, FASTING 86 MG/DL (70-100); LIPASE 170 U/L (73-393); POTASSIUM SERUM 4.2 MEQ/L (3.5-5.1); SODIUM LEVEL 143 MEQ/L (136-145); TOTAL PROTEIN 7.8 GM/DL (6.4-8.2)
[2018-01-16] MEDS: HYOSCYAMINE SULFATE 0.125 MG SUBL TABLET SL (01:45)
[2018-01-16 02:12] LABS: ETHYL ALCOHOL (ETHANOL) 0.003 % (0.000-0.010)
[2018-01-16] MEDS: DICYCLOMINE INJ 20MG/2ML (J0500) IM (02:15)
[2018-01-16] MEDS: ONDANSETRON 4MG/2ML VIAL (J2405) IV (02:20)
[2018-01-16] MEDS: METOCLOPRAMIDE INJ 10MG/2ML VIAL (J2765) IV (02:20)
== END 2018-01-16 02:43 | disposition home or self-care (01) ==
LOC: M ED 21:37
DX: R10.9 Unspecified abdominal pain (principal); G89.29 Other chronic pain; Z88.8 Allergy status to other drugs, medicaments and biological substances
CPT/HCPCS: J0500

== ENCOUNTER → 2018-04-30 | Outpatient (REF) | payer OTHER ==
[~2018-04-30] MED LIST changes: +BENT10CA PO; +BUPR150T5 PO; +HYOS1TAB PO; +NORC1TAB4 PO; +ONDA4TAB6 PO; +PANT40TA3 PO; +PROM1SUP2 PR; +TRAZ-160 PO; -TRAZ50TA11 PO; -ZOFR20TA PO; +ZOFR4TAB14 PO; +ZOFR4TAB16 PO
[2018-04-30 19:45] LABS: BASO # 0.1 10^3/uL (0.0-0.2); BASO % 0.7 % (0.0-1.0); EOS # 0.2 10^3/uL (0.0-0.50); EOS % 2.3 % (0.0-3.0); HEMATOCRIT 49.3 % (42.0-52.0); HEMOGLOBIN 16.7 g/dl (13.5-17.5); LYMPH # 1.7 10^3/uL (1.5-4.5); LYMPH % 17.8 % (24.0-44.0); MEAN CORPUSCULAR HEMOGLOBIN 30.4 pg (27.0-33.0); MEAN CORPUSCULAR HGB CONC 33.9 g/dl (32.0-36.5); MEAN CORPUSCULAR VOLUME 89.6 fl (80.0-96.0); MONO # 0.7 10^3/uL (0.0-0.8); MONO % 7.5 % (0.0-5.0); NEUTROPHILS # 6.8 10^3/uL (1.8-7.7); NEUTROPHILS % 71.4 % (36.0-66.0); PLATELET COUNT, AUTOMATED 201 10^3/uL (150-450); WHITE BLOOD COUNT 9.5 10^3/uL (4.0-10.0)
== END ==
LOC: M SFHCADAM 15:25
PROVIDERS: ATTEND Family Medicine
DX: R79.89 Other specified abnormal findings of blood chemistry (principal)

== ENCOUNTER 2018-05-06 15:12 | Emergency (ER) | payer OTHER ==
[~2018-05-06] VITALS: Ht 172.7 cm; Wt 63.6 kg
[~2018-05-06 15:12] MED LIST changes: -BUPR150T5 PO; -PROM1SUP2 PR
[2018-05-06] MEDS ORDERED: MORPHINE 4 MG/ML 1ML VIAL/SYRINGE (J2270) IV ONE (15:45)
[2018-05-06] MEDS ORDERED: NS 1,000 ML IV ONE ×3 (15:45→16:15)
[2018-05-06] MEDS ORDERED: ONDANSETRON 4MG/2ML VIAL (J2405) IV ONE (15:45)
[2018-05-06 15:54] LABS: BASO % 0.3 % (0.0-1.0); EOS % 0.1 % (0.0-3.0); HEMATOCRIT 59.3 % (42.0-52.0); MEAN CORPUSCULAR HEMOGLOBIN 30.2 pg (27.0-33.0); MEAN CORPUSCULAR HGB CONC 34.9 g/dl (32.0-36.5); MEAN CORPUSCULAR VOLUME 86.4 fl (80.0-96.0); MONO # 0.8 10^3/uL (0.0-0.8); MONO % 5.8 % (0.0-5.0); NEUTROPHILS # 11.5 10^3/uL (1.8-7.7); NEUTROPHILS % 79.4 % (36.0-66.0); PLATELET COUNT, AUTOMATED 276 10^3/uL (150-450); RED BLOOD COUNT 6.86 10^6/uL (4.30-6.10); WHITE BLOOD COUNT 14.4 10^3/uL (4.0-10.0)
[2018-05-06 16:05] LABS: HEMOGLOBIN 20.7 g/dl (13.5-17.5)
[2018-05-06 16:44] LABS: ALBUMIN 5.3 GM/DL (3.2-5.2); ALT/SGPT 23 U/L (12-78); AMYLASE 60 U/L (25-115); BILIRUBIN,DIRECT 0.1 MG/DL (0.0-0.2); BILIRUBIN,TOTAL 0.7 MG/DL (0.2-1.0); BLOOD UREA NITROGEN 27 MG/DL (7-18); CALCIUM LEVEL 10.9 MG/DL (8.5-10.1); CARBON DIOXIDE LEVEL 20 MEQ/L (21-32); CHLORIDE LEVEL 102 MEQ/L (98-107); CK-MB VALUE MASS < 1.0 NG/ML (<3.6); CPK CREATINE PHOSPHOKINASE 67 U/L (39-308); CREATININE FOR GFR 2.75 MG/DL (0.70-1.30); GLOMERULAR FILTRATION RATE 26.3 (>60); GLUCOSE, FASTING 170 MG/DL (70-100); LDH LACTATE DEHYDROGENASE 246 U/L (87-241); LIPASE 108 U/L (73-393); MB/CK RELATIVE INDEX 1.49 (< OR =4); SODIUM LEVEL 137 MEQ/L (136-145); TOTAL PROTEIN 9.7 GM/DL (6.4-8.2); TROPONIN I < 0.02 NG/ML (< 0.10)
[2018-05-06] MEDS ORDERED: METOCLOPRAMIDE INJ 10MG/2ML VIAL (J2765) IV ONE (16:45)
[2018-05-06] MEDS: HYDROMORPHONE HCL 0.5 MG/ 0.5 ML SYRINGE (J1170 PER 1) IV PRN ×2 (16:52→17:34)
[2018-05-06] MEDS ORDERED: BUPR150T5 PO (17:15)
[2018-05-06] MEDS ORDERED: ZOFR4TAB14 PO (17:15)
--- NOTE | 2018-05-06 17:18 | REP ---
Clinical: Acute epigastric pain. Technique: Axial noncontrast images from the lung bases to the pubic symphysis with coronal and sagittal re-formations. Comparison: 01/10/2019. Findings: Lung bases are clear. Liver, spleen, pancreas, gallbladder, bilateral adrenal glands and kidneys are normal for noncontrast evaluation. The enteric system is without obstruction or acute inflammatory process. Normal terminal ileum and appendix are identified in the right lower quadrant. Colonic and sigmoid diverticulosis noted without acute diverticulitis. Pelvis demonstrates normal bladder and age appropriate prostate/seminal vesicles. No ascites. No free air. No adenopathy. Atherosclerotic changes to the vasculature noted without aneurysm. Musculoskeletal structures are intact. Impression: Diverticulosis. No acute abdominopelvic pathology appreciated by noncontrast evaluation. Electronically Signed by Bib Ziegler MD 05/06/2018 05:09 P
[2018-05-06] MEDS ORDERED: NS 500 ML IV ONE (17:45)
[2018-05-06 18:33] LABS: HEMATOCRIT 52.6 % (42.0-52.0); MEAN CORPUSCULAR HEMOGLOBIN 30.6 pg (27.0-33.0); MEAN CORPUSCULAR HGB CONC 33.5 g/dl (32.0-36.5); MEAN CORPUSCULAR VOLUME 91.5 fl (80.0-96.0); PLATELET COUNT, AUTOMATED 183 10^3/uL (150-450); RED BLOOD COUNT 5.75 10^6/uL (4.30-6.10); WHITE BLOOD COUNT 14.9 10^3/uL (4.0-10.0)
[2018-05-06 18:39] LABS: HEMOGLOBIN 17.6 g/dl (13.5-17.5)
[2018-05-06 18:55] LABS: APPEARANCE, URINE CLOUDY (CLEAR); BACTERIA, URINE AUTO NEGATIVE (NEGATIVE); BILIRUBIN, URINE AUTO NEGATIVE (NEGATIVE); BLOOD, URINE BLOOD 1+ (NEGATIVE); COLOR, URINE YELLOW (YELLOW); GLUCOSE, URINE (UA) AUTO NEGATIVE (NEGATIVE); KETONE, URINE AUTO NEGATIVE (NEGATIVE); LEUKOCYTE ESTERASE, URINE AUTO TRACE (NEGATIVE); MUCUS, URINE LARGE (NEGATIVE); NITRITE, URINE AUTO NEGATIVE (NEGATIVE); PROTEIN, URINE AUTO 2+ mg/dL (NEGATIVE); RBC, URINE AUTO 2 /HPF (0-3); SPECIFIC GRAVITY URINE AUTO 1.019 (1.002-1.035); SQUAMOUS EPITHELIAL CELL UR AU 5 /HPF (0-6); UROBILINOGEN, URINE AUTO 0.2 mg/dL (0.0-2.0); WBC, URINE AUTO 12 /HPF (0-3)
[2018-05-06 18:56] LABS: CALCIUM LEVEL 8.5 MG/DL (8.5-10.1); CREATININE FOR GFR 1.9 MG/DL (0.70-1.30); GLOMERULAR FILTRATION RATE 40.3 (>60); POTASSIUM SERUM 4.5 MEQ/L (3.5-5.1)
[2018-05-06] MEDS ORDERED: HYDROMORPHONE HCL 0.5 MG/ 0.5 ML SYRINGE (J1170 PER 1) IV PRN (19:30)
[2018-05-06] MEDS ORDERED: PROMETHAZINE INJ 25 MG/ML VIAL (J2550) IM ONE (19:30)
[2018-05-06] MEDS ORDERED: NS 1,000 ML IV SCH (19:30)
[2018-05-06] MEDS ORDERED: PROM1SUP2 PR (21:52)
[2018-05-06 21:56] VITALS: BP 139/75
[2018-05-06] MEDS ORDERED: PROMETHAZINE 25 MG SUPP PR ONE (22:00)
[2018-05-06] MEDS ORDERED: NORCO, ANEXSIA 5/325MG TABLET (HYDROcodone/ACETAMINOPHEN) PO ONE (22:00)
--- NOTE | 2018-05-07 14:53 | ECGEPIP ---
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 Order Number: [id number] Reading MD: Rina Matta Measurements Intervals [place] Rate: 79 P: 85 IN: 122 QRS: 101 QRSD: 122 T: 71 QT: 346 QTc: 399 Interpretive Statements SINUS RHYTHM WITH SINUS ARRHYTHMIA RIGHT ATRIAL ENLARGEMENT MARKED RIGHT AXIS DEVIATION MODERATE INTRAVENTRICULAR CONDUCTION DELAY ST ELEVATION, PROBABLY EARLY REPOLARIZATION TALL T-WAVES, SUGGESTS HYPERKALEMIA INCREASED RATE 01/06/18 Electronically Signed On 05-07-2018 14:53:02 EST by Rina Matta
== END 2018-05-06 22:15 | disposition home or self-care (01) ==
LOC: M ED 15:12
DX: N17.9 Acute kidney failure, unspecified (principal); R10.9 Unspecified abdominal pain; K86.1 Other chronic pancreatitis; R11.2 Nausea with vomiting, unspecified; E86.0 Dehydration; I88.9 Nonspecific lymphadenitis, unspecified; R94.31 Abnormal electrocardiogram [ECG] [EKG]; Z88.5 Allergy status to narcotic agent; Z79.899 Other long term (current) drug therapy
CPT/HCPCS: 74176; 80048; 80076; 81001; 82150; 82550; 82553; 83615; 83690; 85025; 85027; 93005; 96361; 96372; 96374; 96375; 96376; 99284; J1170; J2270; J2405; J2765

== ENCOUNTER 2018-05-07 20:34 | Emergency (ER) | payer OTHER ==
[~2018-05-07] VITALS: Ht 172.7 cm; Wt 63.6 kg
[~2018-05-07 20:34] MED LIST changes: +BUPR150T5 PO; +PROM1SUP2 PR
[2018-05-07 20:54] LABS: BASO % 0.3 % (0.0-1.0); EOS # 0.1 10^3/uL (0.0-0.50); EOS % 1.4 % (0.0-3.0); HEMATOCRIT 45.6 % (42.0-52.0); LYMPH # 2.5 10^3/uL (1.5-4.5); LYMPH % 28.9 % (24.0-44.0); MEAN CORPUSCULAR HEMOGLOBIN 30.7 pg (27.0-33.0); MEAN CORPUSCULAR HGB CONC 33.3 g/dl (32.0-36.5); MEAN CORPUSCULAR VOLUME 92.1 fl (80.0-96.0); MONO # 0.6 10^3/uL (0.0-0.8); MONO % 6.3 % (0.0-5.0); NEUTROPHILS # 5.5 10^3/uL (1.8-7.7); NEUTROPHILS % 62.9 % (36.0-66.0); PLATELET COUNT, AUTOMATED 159 10^3/uL (150-450); RED BLOOD COUNT 4.95 10^6/uL (4.30-6.10); WHITE BLOOD COUNT 8.8 10^3/uL (4.0-10.0)
[2018-05-07 21:02] LABS: HEMOGLOBIN 15.2 g/dl (13.5-17.5)
[2018-05-07 21:44] LABS: ALBUMIN 3.5 GM/DL (3.2-5.2); ALT/SGPT 14 U/L (12-78); BILIRUBIN,TOTAL 0.4 MG/DL (0.2-1.0); BLOOD UREA NITROGEN 21 MG/DL (7-18); CALCIUM LEVEL 8.4 MG/DL (8.5-10.1); CARBON DIOXIDE LEVEL 29 MEQ/L (21-32); CHLORIDE LEVEL 106 MEQ/L (98-107); CREATININE FOR GFR 1.02 MG/DL (0.70-1.30); GLOMERULAR FILTRATION RATE > 60.0 (>60); GLUCOSE, FASTING 100 MG/DL (70-100); POTASSIUM SERUM 4.1 MEQ/L (3.5-5.1); SODIUM LEVEL 141 MEQ/L (136-145); TOTAL PROTEIN 6.5 GM/DL (6.4-8.2)
[2018-05-07 22:14] VITALS: BP 110/74
[2018-05-07 22:16] LABS: LIPASE 136 U/L (73-393)
== END 2018-05-07 22:15 | disposition home or self-care (01) ==
LOC: M ED 20:34
DX: E86.0 Dehydration (principal); N17.9 Acute kidney failure, unspecified; I10 Essential (primary) hypertension; K86.1 Other chronic pancreatitis; F17.210 Nicotine dependence, cigarettes, uncomplicated

== ENCOUNTER 2018-05-08 09:36 | Emergency (ER) | payer OTHER ==
[~2018-05-08] VITALS: Ht 172.7 cm; Wt 63.6 kg
[2018-05-08] MEDS ORDERED: NS 1,000 ML IV ONE (10:00)
[2018-05-08] MEDS ORDERED: PROMETHAZINE INJ 25 MG/ML VIAL (J2550) IV ONE (10:00)
[2018-05-08] MEDS ORDERED: HALOPERIDOL 5 MG/ML VIAL (J1630) IV STA (10:00)
[2018-05-08 10:16] LABS: BASO # 0.1 10^3/uL (0.0-0.2); BASO % 0.4 % (0.0-1.0); EOS # 0.1 10^3/uL (0.0-0.50); EOS % 0.7 % (0.0-3.0); HEMATOCRIT 49.2 % (42.0-52.0); HEMOGLOBIN 16.8 g/dl (13.5-17.5); LYMPH # 1.8 10^3/uL (1.5-4.5); LYMPH % 14.6 % (24.0-44.0); MEAN CORPUSCULAR HEMOGLOBIN 30.5 pg (27.0-33.0); MEAN CORPUSCULAR HGB CONC 34.1 g/dl (32.0-36.5); MEAN CORPUSCULAR VOLUME 89.5 fl (80.0-96.0); MONO # 0.6 10^3/uL (0.0-0.8); MONO % 4.9 % (0.0-5.0); NEUTROPHILS # 9.9 10^3/uL (1.8-7.7); NEUTROPHILS % 79.2 % (36.0-66.0); PLATELET COUNT, AUTOMATED 182 10^3/uL (150-450); WHITE BLOOD COUNT 12.5 10^3/uL (4.0-10.0)
[2018-05-08 10:50] LABS: ALBUMIN 4.1 GM/DL (3.2-5.2); ALT/SGPT 16 U/L (12-78); AMYLASE 72 U/L (25-115); BILIRUBIN,DIRECT < 0.1 MG/DL (0.0-0.2); BILIRUBIN,TOTAL 0.5 MG/DL (0.2-1.0); BLOOD UREA NITROGEN 18 MG/DL (7-18); CALCIUM LEVEL 8.8 MG/DL (8.5-10.1); CARBON DIOXIDE LEVEL 26 MEQ/L (21-32); CHLORIDE LEVEL 108 MEQ/L (98-107); CREATININE FOR GFR 0.85 MG/DL (0.70-1.30); GLOMERULAR FILTRATION RATE > 60.0 (>60); GLUCOSE, FASTING 119 MG/DL (70-100); LIPASE 135 U/L (73-393); POTASSIUM SERUM 3.9 MEQ/L (3.5-5.1); SODIUM LEVEL 140 MEQ/L (136-145); TOTAL PROTEIN 7.7 GM/DL (6.4-8.2)
[2018-05-08] MEDS ORDERED: HYDROMORPHONE HCL 0.5 MG/ 0.5 ML SYRINGE (J1170 PER 1) IV PRN (11:15)
[2018-05-08] MEDS: HYDROMORPHONE HCL 0.5 MG/ 0.5 ML SYRINGE (J1170 PER 1) IV PRN ×2 (11:17→12:36)
[2018-05-08 13:29] VITALS: BP 123/72
== END 2018-05-08 13:33 | disposition home or self-care (01) ==
LOC: EDBD 09:36 → M ED 09:36
DX: R10.9 Unspecified abdominal pain (principal); G89.29 Other chronic pain; R11.10 Vomiting, unspecified; K57.92 Diverticulitis of intestine, part unspecified, without perforation or abscess without bleeding; N17.9 Acute kidney failure, unspecified; D45 Polycythemia vera; J44.9 Chronic obstructive pulmonary disease, unspecified; Z87.19 Personal history of other diseases of the digestive system; M51.9 Unspecified thoracic, thoracolumbar and lumbosacral intervertebral disc disorder; Z87.891 Personal history of nicotine dependence; Z88.5 Allergy status to narcotic agent
CPT/HCPCS: 36415; 80048; 80076; 82150; 83690; 85025; 96361; 96374; 96375; 96376; 99284; J1170; J1630

== ENCOUNTER → 2018-05-19 | Outpatient (REF) | payer OTHER ==
[~2018-05-19] MED LIST changes: +METR-201 PO; -METR1TAB66 PO; -NICO21DI5 TD; +NICO21DI6 TD
[2018-05-19 13:08] LABS: ALBUMIN 3.9 GM/DL (3.2-5.2); ALT/SGPT 15 U/L (12-78); BILIRUBIN,TOTAL 0.4 MG/DL (0.2-1.0); BLOOD UREA NITROGEN 10 MG/DL (7-18); CALCIUM LEVEL 8.6 MG/DL (8.5-10.1); CARBON DIOXIDE LEVEL 28 MEQ/L (21-32); CHLORIDE LEVEL 106 MEQ/L (98-107); CREATININE FOR GFR 0.83 MG/DL (0.70-1.30); GLOMERULAR FILTRATION RATE > 60.0 (>60); GLUCOSE, FASTING 81 MG/DL (70-100); POTASSIUM SERUM 4.6 MEQ/L (3.5-5.1); SODIUM LEVEL 139 MEQ/L (136-145); TOTAL PROTEIN 6.9 GM/DL (6.4-8.2)
== END ==
LOC: M SFHCADAM 09:38
PROVIDERS: ATTEND Family Medicine
DX: N17.9 Acute kidney failure, unspecified (principal)

== ENCOUNTER 2018-07-05 21:47 | Emergency (ER) | payer OTHER ==
[~2018-07-05] VITALS: Ht 172.7 cm; Wt 63.6 kg
[2018-07-05] MEDS ORDERED: AMIT25TA PO (21:53)
[2018-07-05] MEDS ORDERED: HALOPERIDOL 5 MG/ML VIAL (J1630) IV STA (22:03)
[2018-07-05] MEDS ORDERED: diphenhydrAMINE INJ 50MG/ML VIAL (J1200) IV STA (22:03)
[2018-07-05 22:10] LABS: BASO # 0.1 10^3/uL (0.0-0.2); BASO % 0.5 % (0.0-1.0); EOS % 0.1 % (0.0-3.0); HEMATOCRIT 51.8 % (42.0-52.0); HEMOGLOBIN 17.5 g/dl (13.5-17.5); LYMPH # 1.5 10^3/uL (1.5-4.5); LYMPH % 10.8 % (24.0-44.0); MEAN CORPUSCULAR HEMOGLOBIN 29.6 pg (27.0-33.0); MEAN CORPUSCULAR HGB CONC 33.8 g/dl (32.0-36.5); MEAN CORPUSCULAR VOLUME 87.5 fl (80.0-96.0); MONO # 0.5 10^3/uL (0.0-0.8); MONO % 3.5 % (0.0-5.0); NEUTROPHILS # 11.8 10^3/uL (1.8-7.7); NEUTROPHILS % 84.8 % (36.0-66.0); PLATELET COUNT, AUTOMATED 218 10^3/uL (150-450); RED BLOOD COUNT 5.92 10^6/uL (4.30-6.10)
[2018-07-05] MEDS ORDERED: NS 1,000 ML IV ONE (22:15)
[2018-07-05] MEDS ORDERED: MORPHINE 2 MG/ML 1ML SYRINGE (J2270) IV ONE (22:15)
[2018-07-05 22:54] LABS: ALBUMIN 4.5 GM/DL (3.2-5.2); ALT/SGPT 19 U/L (12-78); BILIRUBIN,DIRECT 0.1 MG/DL (0.0-0.2); BILIRUBIN,TOTAL 0.6 MG/DL (0.2-1.0); BLOOD UREA NITROGEN 10 MG/DL (7-18); CALCIUM LEVEL 9.2 MG/DL (8.5-10.1); CARBON DIOXIDE LEVEL 24 MEQ/L (21-32); CHLORIDE LEVEL 106 MEQ/L (98-107); CREATININE FOR GFR 0.93 MG/DL (0.70-1.30); ETHYL ALCOHOL (ETHANOL) < 0.003 % (0.000-0.010); GLOMERULAR FILTRATION RATE > 60.0 (>60); GLUCOSE, FASTING 100 MG/DL (70-100); LIPASE 122 U/L (73-393); SODIUM LEVEL 143 MEQ/L (136-145); TOTAL PROTEIN 8.1 GM/DL (6.4-8.2)
[2018-07-05] MEDS: GASTROGRAFIN SOLUTION 30ML PO SCH (23:40)
[2018-07-06] MEDS: GASTROGRAFIN SOLUTION 30ML PO SCH (00:10)
[2018-07-06] MEDS ORDERED: ISOVUE-370 76% 100ML VIAL (Q9967) As Ordered ONE (00:12)
[2018-07-06 00:26] LABS: CPK CREATINE PHOSPHOKINASE 87 U/L (39-308); MB/CK RELATIVE INDEX 1.15 (< OR =4); TROPONIN I < 0.02 NG/ML (< 0.10)
--- NOTE | 2018-07-06 00:51 | REPVR ---
EXAM: CT Abdomen and Pelvis With Contrast EXAM DATE/TIME: 07/05/2018 12:23 AM CLINICAL HISTORY: 48 years old, male; Pain; Abdominal pain; Generalized TECHNIQUE: Axial computed tomography images of the abdomen and pelvis with intravenous contrast. All CT scans at this facility use at least one of these dose optimization techniques: automated exposure control; mA and/or kV adjustment per patient size (includes targeted exams where dose is matched to clinical indication); or iterative reconstruction. Coronal and sagittal reformatted images were created and reviewed. CONTRAST: Contrast Material: 100 ml of isovue 370; Contrast Route: IV COMPARISON: CT ABD/PEL W/IV CONTRAST ONLY 01/10/2018 6:51 AM FINDINGS: Lower thorax: No suspicious mass or airspace process in the visualized lung bases. ABDOMEN: Liver: Liver appears normal with no focal abnormality. Gallbladder and bile ducts: Gallbladder is present and shows no evidence of gallstone. Pancreas: Pancreas appears normal. No focal mass or peripancreatic inflammation. Spleen: Spleen appears homogeneous without focal mass. Adrenals: Adrenal glands are normal in appearance. Kidneys and ureters: Kidneys appear normal, with no stone, solid mass or hydronephrosis. Stomach and bowel: No evidence of small bowel obstruction. Stomach is underdistended distally giving a thick walled appearance. Diverticular changes are present within the colon without inflammation. Appendix: Normal caliber appendix is identified, with no adjacent inflammation. PELVIS: Bladder: Bladder appears normal. Reproductive: Unremarkable as visualized. ABDOMEN and PELVIS: Intraperitoneal space: No pneumoperitoneum. Bones/joints: Bony structures show no acute fracture or destructive process. Soft tissues: No effacement of normal fat planes in the ischiorectal fossa. Vasculature: Main portal and splenic veins enhance normally. IMPRESSION: 1. No acute surgical or inflammatory process. 2. Colonic diverticular change without active inflammation. 3. Underdistended stomach, giving it a slightly circumferentially thickwalled appearance distally. This is probably due to the underdistention but could also reflect mild changes of gastritis. Electronically signed by: Donnell Kee On 07/06/2018 00:51:14 AM
[2018-07-06] MEDS ORDERED: PROT1TAB2 PO (01:08)
[2018-07-06] MEDS ORDERED: CARA1TAB6 PO (01:08)
[2018-07-06] MEDS ORDERED: GI COCKTAIL 50ML BTL(HYOSCYAMINE/MAALOX/LIDOCAINE VISCOUS)(1:3:1) PO ONE (01:15)
[2018-07-06] MEDS ORDERED: SUCRALFATE 1 GM TAB PO ONE (01:15)
[2018-07-06] MEDS ORDERED: PANTOPRAZOLE 40MG INJ (PROTONIX) (C9113) IV ONE (01:15)
[2018-07-06 01:41] VITALS: BP 102/58
--- NOTE | 2018-07-06 17:51 | ECGEPIP ---
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
== END 2018-07-06 01:43 | disposition home or self-care (01) ==
LOC: M ED 21:47
DX: K29.70 Gastritis, unspecified, without bleeding (principal); J44.9 Chronic obstructive pulmonary disease, unspecified; K86.1 Other chronic pancreatitis; D75.1 Secondary polycythemia; Z96.89 Presence of other specified functional implants; Z72.0 Tobacco use; Z79.899 Other long term (current) drug therapy; Z88.8 Allergy status to other drugs, medicaments and biological substances
CPT/HCPCS: 36415; 74177; 80048; 80076; 82550; 82553; 83605; 83690; 85025; 93005; 96374; 96375; 99285; C9113; G0480; J1200; J1630; J2270; Q9963; Q9967

== ENCOUNTER 2018-07-07 14:00 | Emergency (ER) | payer OTHER ==
[~2018-07-07] VITALS: Ht 172.7 cm; Wt 63.6 kg
[~2018-07-07 14:00] MED LIST changes: +AMIT25TA PO; +CARA1TAB6 PO
[2018-07-07] MEDS ORDERED: GI COCKTAIL 50ML BTL(HYOSCYAMINE/MAALOX/LIDOCAINE VISCOUS)(1:3:1) PO ONE ×2 (14:30→18:30)
[2018-07-07] MEDS ORDERED: ONDANSETRON 4MG/2ML VIAL (J2405) IV ONE (14:30)
[2018-07-07] MEDS: MORPHINE 2 MG/ML 1ML SYRINGE (J2270) IV PRN ×2 (14:39→15:46)
[2018-07-07 14:49] LABS: BASO % 0.4 % (0.0-1.0); EOS % 0.3 % (0.0-3.0); HEMATOCRIT 48.2 % (42.0-52.0); HEMOGLOBIN 16.8 g/dl (13.5-17.5); LYMPH # 1.3 10^3/uL (1.5-4.5); LYMPH % 12.7 % (24.0-44.0); MEAN CORPUSCULAR HEMOGLOBIN 29.9 pg (27.0-33.0); MEAN CORPUSCULAR HGB CONC 34.9 g/dl (32.0-36.5); MEAN CORPUSCULAR VOLUME 85.9 fl (80.0-96.0); MONO # 0.5 10^3/uL (0.0-0.8); NEUTROPHILS # 8.2 10^3/uL (1.8-7.7); NEUTROPHILS % 81.4 % (36.0-66.0); PLATELET COUNT, AUTOMATED 191 10^3/uL (150-450); RED BLOOD COUNT 5.61 10^6/uL (4.30-6.10)
[2018-07-07 15:01] LABS: INR 1.01; PARTIAL THROMBOPLASTIN TIME 30.6 SECONDS (25.4-37.6); PROTHROMBIN TIME 13.4 SECONDS (12.1-14.4)
[2018-07-07 15:21] LABS: ALBUMIN 4.2 GM/DL (3.2-5.2); ALT/SGPT 19 U/L (12-78); AMYLASE 86 U/L (25-115); BILIRUBIN,DIRECT 0.1 MG/DL (0.0-0.2); BILIRUBIN,TOTAL 0.7 MG/DL (0.2-1.0); BLOOD UREA NITROGEN 11 MG/DL (7-18); CALCIUM LEVEL 8.6 MG/DL (8.5-10.1); CARBON DIOXIDE LEVEL 28 MEQ/L (21-32); CHLORIDE LEVEL 104 MEQ/L (98-107); CREATININE FOR GFR 0.84 MG/DL (0.70-1.30); GLOMERULAR FILTRATION RATE > 60.0 (>60); GLUCOSE, FASTING 105 MG/DL (70-100); LIPASE 112 U/L (73-393); POTASSIUM SERUM 4.1 MEQ/L (3.5-5.1); SODIUM LEVEL 139 MEQ/L (136-145); TOTAL PROTEIN 7.3 GM/DL (6.4-8.2)
[2018-07-07] MEDS ORDERED: METOCLOPRAMIDE INJ 10MG/2ML VIAL (J2765) IV ONE (15:45)
[2018-07-07] MEDS ORDERED: NS 1,000 ML IV ONE (16:30)
[2018-07-07] MEDS ORDERED: HYDROMORPHONE HCL 0.5 MG/ 0.5 ML SYRINGE (J1170 PER 1) IV PRN (17:30)
[2018-07-07] MEDS ORDERED: diphenhydrAMINE INJ 50MG/ML VIAL (J1200) IV STA (18:24)
[2018-07-07] MEDS ORDERED: HALOPERIDOL 5 MG/ML VIAL (J1630) IV ONE (18:30)
[2018-07-07 19:58] VITALS: BP 110/55
[2018-07-07] MEDS ORDERED: NORCO 5/325MG TABLET (BULK FOR ED) PO ONE (20:15)
== END 2018-07-07 20:24 | disposition home or self-care (01) ==
LOC: M ED 14:00
DX: K29.70 Gastritis, unspecified, without bleeding (principal); K86.1 Other chronic pancreatitis; R91.8 Other nonspecific abnormal finding of lung field; F17.200 Nicotine dependence, unspecified, uncomplicated; Z79.899 Other long term (current) drug therapy; Z98.890 Other specified postprocedural states
CPT/HCPCS: 80048; 80076; 82150; 83605; 83690; 85025; 85610; 85730; 93041; 96374; 96375; 96376; 99285; J1170; J1200; J1630; J2270; J2405; J2765

== ENCOUNTER 2018-07-09 13:54 | Observation (INO) | payer OTHER ==
[~2018-07-09] VITALS: Ht 172.7 cm; Wt 61.6 kg
[2018-07-09] MEDS ORDERED: PROT1TAB2 (14:00)
[2018-07-09] MEDS ORDERED: CARA1TAB6 (14:00)
[2018-07-09] MEDS ORDERED: PANTOPRAZOLE 40MG INJ (PROTONIX) (C9113) IV ONE (15:45)
[2018-07-09] MEDS ORDERED: METOCLOPRAMIDE INJ 10MG/2ML VIAL (J2765) IV ONE (15:45)
[2018-07-09] MEDS ORDERED: NS 1,000 ML IV ONE (15:45)
[2018-07-09] MEDS ORDERED: KETAMINE HCL 200 MG/20 ML VIAL IV ONE (16:45)
[2018-07-09 17:08] LABS: BASO # 0.1 10^3/uL (0.0-0.2); BASO % 0.5 % (0.0-1.0); EOS % 0.3 % (0.0-3.0); HEMATOCRIT 48.3 % (42.0-52.0); HEMOGLOBIN 16.6 g/dl (13.5-17.5); LYMPH # 1.3 10^3/uL (1.5-4.5); LYMPH % 11.4 % (24.0-44.0); MEAN CORPUSCULAR HEMOGLOBIN 30.1 pg (27.0-33.0); MEAN CORPUSCULAR HGB CONC 34.4 g/dl (32.0-36.5); MEAN CORPUSCULAR VOLUME 87.5 fl (80.0-96.0); MONO # 0.6 10^3/uL (0.0-0.8); NEUTROPHILS # 9.5 10^3/uL (1.8-7.7); NEUTROPHILS % 82.5 % (36.0-66.0); PLATELET COUNT, AUTOMATED 195 10^3/uL (150-450); RED BLOOD COUNT 5.52 10^6/uL (4.30-6.10); WHITE BLOOD COUNT 11.6 10^3/uL (4.0-10.0)
[2018-07-09 17:24] LABS: ALBUMIN 4.3 GM/DL (3.2-5.2); ALT/SGPT 18 U/L (12-78); BILIRUBIN,DIRECT 0.1 MG/DL (0.0-0.2); BILIRUBIN,TOTAL 0.6 MG/DL (0.2-1.0); BLOOD UREA NITROGEN 8 MG/DL (7-18); CALCIUM LEVEL 8.7 MG/DL (8.5-10.1); CARBON DIOXIDE LEVEL 28 MEQ/L (21-32); CHLORIDE LEVEL 108 MEQ/L (98-107); CK-MB VALUE MASS < 1.0 NG/ML (<3.6); CPK CREATINE PHOSPHOKINASE 85 U/L (39-308); CREATININE FOR GFR 0.82 MG/DL (0.70-1.30); GLOMERULAR FILTRATION RATE > 60.0 (>60); GLUCOSE, FASTING 102 MG/DL (70-100); LIPASE 131 U/L (73-393); MB/CK RELATIVE INDEX 1.18 (< OR =4); SODIUM LEVEL 141 MEQ/L (136-145); TOTAL PROTEIN 7.3 GM/DL (6.4-8.2); TROPONIN I < 0.02 NG/ML (< 0.10)
[2018-07-09 17:24] LABS: INR 1.11; PROTHROMBIN TIME 14.4 SECONDS (12.1-14.4)
[2018-07-09 17:25] LABS: PARTIAL THROMBOPLASTIN TIME 31.7 SECONDS (25.4-37.6)
[2018-07-09] MEDS ORDERED: PROMETHAZINE INJ 25 MG/ML VIAL (J2550) IV ONE (19:45)
[2018-07-09] MEDS ORDERED: PANT40TA3 PO (21:07)
[2018-07-09] MEDS ORDERED: CARA1TAB6 PO (21:07)
--- NOTE | 2018-07-09 21:08 | ECGEPIP ---
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
[2018-07-09] MEDS ORDERED: fentaNYL 100 MCG/2 ML INJECTION (J3010) IV ONE (21:15)
[2018-07-09] MEDS ORDERED: ACETAMINOPHEN TAB 650MG DOSE (2X325MG) PO PRN (21:45)
[2018-07-09] MEDS ORDERED: METOCLOPRAMIDE INJ 10MG/2ML VIAL (J2765) IV PRN (21:45)
[2018-07-09] MEDS ORDERED: ONDANSETRON 4MG/2ML VIAL (J2405) IV PRN (21:45)
[2018-07-09] MEDS ORDERED: MORPHINE 4 MG/ML 1ML VIAL/SYRINGE (J2270) IV PRN (21:45)
[2018-07-09] MEDS ORDERED: traMADol 50 MG TAB PO PRN (21:45)
[2018-07-09] MEDS ORDERED: PILL CRUSHER/CUTTER 1 EACH XX PRN (22:00)
--- NOTE | 2018-07-09 22:29 | HPEPDOC ---
[facility] Medical History & Physical Date of Admission Jul 09, 2018 Primary Care Physician: MARILYN PARIS DO Attending Physician: SHONDA ODELL MD History and Physical CHIEF COMPLAINT: abdominal HISTORY OF PRESENT ILLNESS: Patient is a 48-year-old gentleman who presents with abdominal pain, nausea, vomiting. He has presented to the ED multiple times over the last several years for abdominal pain, on some occasions he has been found to be acutely dehydrated with acute kidney injury and treated for it. He has had 3 ED visits this week alone for abdominal pain, each time workup was negative, including CT abdomen and pelvis, lipase and amylase, CBC, and alcohol level and was discharged with pain control and proton pump inhibitor, and Carafate. His last visit was on 07/07/2018, he was discharged with Carafate and Protonix, he presents today stating that he was unable to tolerate the by mouth medication due to abdominal pain and vomiting. He admits to decreased appetite, weight loss. Denies any fever, denies any changes in diet. Denies any blood per rectum, denies any melena. Patient states that he has had ongoing abdominal pain, nausea and vomiting for 10 years, it was previously controlled with Percocet, the Percocet was discontinued due to an addiction problem. His current PCP, has attempted to use amitriptyline to control his pain, he reports some improvement but not complete resolution of his abdominal pain. Attempts have been made to send patient to gastroenterology in [place], however he was had establish care with with Dr. Varner (Karen in [place]) in the past before he retired, patient did not follow up with the clinic in around 5 years because transportation was an issue going down to [place]. Because of this, he was asked to reestablish care with [facility] and has not been evaluated by [facility]. Patient states that he has not been able to reestablish care with GI in [place] because they were not helping him with his abdominal pain. In ED patient complained of severe abdominal pain, 8 out of 10. He was given fentanyl citrate, Phenergan, ketamine, Reglan, and PPI in the ED. No imaging were obtained due to patient's recent abdomen and pelvis CT on 07/05/2017 which was normal. After pain medication was administered to patient, patient stated that he still has abdominal pain. He stated that he knows his abdominal pain and, and what really helps is morphine and Dilaudid. Patient requested Dilaudid during his interview with me. PAST MEDICAL HISTORY: Tobacco abuse. Multiple AK I secondary dehydration. UTI Anxiety. Previous history of alcoholism. Chronic pancreatitis secondary to alcohol abuse. PAST SURGICAL HISTORY: ERCP with pancreatic stent placement in 2018. EGD/colonoscopy in 2015. EGD in 2017 SOCIAL HISTORY: Current tobacco smoker, stopped drinking alcohol approximately 10 years ago, denies any IV drug use FAMILY HISTORY: Noncontributory ALLERGIES: Please see below. REVIEW OF SYSTEMS: ROS CONSTITUTIONAL: No fevers, denies chills, admits to weight loss, denies lethargy HEENT: No rhinorrhea, no itchy eyes, no congesion, CARDIOVASCULAR: No murmurs no palpitations and arrhythmias RESPIRATORY: Not cough, No SOB, no issues to report GASTROINTESTINAL: Admits to nausea, vomiting, abdominal pain, no difficulty s wallowing, no diarrhea HEMATOLOGICAL: No bleeding GENITOURINARY:No Issues HEMATOLOGIC/LYMPHATIC: No swelling PE VITALS: See Below GENERAL APPEARANCE: Alert no acute distress. Appears physically uncomfortable SKIN: Warm, well perfused. ENT: Palate intact, marsh tympanic membrane no bulging, no erythema, Neck supple, no thyromegaly LUNGS: Clear to auscultation bilaterally. HEART: Normal S1, S2. No murmurs, no rubs, no gallops ABDOMEN: Soft. No masses. Tenderness to palpation of 4 quadrants, bowel sounds present TRUNK/SPINE:Straight. EXTREMITIES: Moves all extremities equally. No gross deformities. PULSES: 2+ upper and lower extremity . HOME MEDICATIONS: Please see below. LABORATORY DATA: See below. IMAGING: CT abdomen on 07/05/2018 1. No acute surgical or inflammatory process. 2. Colonic diverticular change without active inflammation. 3. Underdistended stomach, giving it a slightly circumferentially thickwalled appearance distally. This is probably due to the underdistention but could also reflect mild changes of gastritis. MICROBIOLOGY: Please see below. ASSESSMENT/PLAN: A 48-year-old male presents for abdominal pain, nausea and vomiting. He has had multiple visit with similar complaints. Workup has been negative in each visit. He will be admitted for pain control, with a GI consultation for possible EGD tomorrow to determine the etiology. Differential diagnosis includes gastritis, pancreatitis, pain seeking drug behavior, adverse effect of drug use, urine tox screen pending. Consider use of gabapentin to control patient's pain, if GI workup is negative. Also consider referral to pain clinic for patient's ongoing abdominal pain. He was made nothing by mouth after midnight for procedure. Lovenox for DVT prophylaxis. Laboratory values was unremarkable for dehydration, acute kidney injury, lipase level of 131, patient does have a slightly elevated WBC of 11.6. Most likely due to his vomiting. We'll continue to monitor Vital Signs Vital Signs Date Time Temp Pulse Resp B/P (MAP) Pulse Ox O2 Delivery O2 Flow Rate FiO2 07/09/18 21:20 16 07/09/18 17:14 68 118/66 (83) 97 Room Air 07/09/18 13:58 98.1 Laboratory Data Labs 24H Laboratory Tests 2 07/09/18 16:42: Prothrombin Time 14.4, Prothromb Time International Ratio 1.11, Activated Partial Thromboplast Time 31.7 07/09/18 16:48: Immature Granulocyte % (Auto) 0.3, White Blood Count 11.6H, Red Blood Count 5.52, Hemoglobin 16.6, Hematocrit 48.3, Mean Corpuscular Volume 87.5, Mean Corpuscular Hemoglobin 30.1, Mean Corpuscular Hemoglobin Concent 34.4, Red Cell Distribution Width 12.1, Platelet Count 195, Neutrophils (%) (Auto) 82.5H, Lymphocytes (%) (Auto) 11.4L, Monocytes (%) (Auto) 5.0, Eosinophils (%) (Auto) 0.3, Basophils (%) (Auto) 0.5, Neutrophils # (Auto) 9.5H, Lymphocytes # (Auto) 1.3L, Monocytes # (Auto) 0.6, Eosinophils # (Auto) 0.0, Basophils # (Auto) 0.1, Nucleated Red Blood Cells % (auto) 0.0, Anion Gap 5L, Glomerular Filtration Rate > 60.0, Calcium Level 8.7, Aspartate Amino Transf (AST/SGOT) 10, Alanine Aminotransferase (ALT/SGPT) 18, Alkaline Phosphatase 97, Total Bilirubin 0.6, Direct Bilirubin 0.1, Total Creatine Kinase 85, Creatine Kinase MB < 1.0, Creatine Kinase MB Relative Index 1.18, Troponin I < 0.02, Total Protein 7.3, Albumin 4.3, Albumin/Globulin Ratio 1.43, Lipase 131 07/09/18 19:15: Urine Color YELLOW, Urine Appearance CLEAR, Urine pH 7.0, Urine Specific [place] 1.025, Urine Protein 2+H, Urine Glucose (UA) NEGATIVE, Urine Ketones NEGATIVE, Urine Blood NEGATIVE, Urine Nitrite NEGATIVE, Urine Bilirubin NEGATIVE, Urine Urobilinogen 0.2, Urine Leukocyte Esterase NEGATIVE, Urine WBC (Auto) 5H, Urine RBC (Auto) 5H, Urine Hyaline Casts (Auto) 0, Urine Bacteria (Auto) NEGATIVE, Urine Squamous Epithelial Cells 1, Urine Mucus (Auto) MODERATE, Urine Sperm (Auto) CBC/BMP Laboratory Tests 07/09/18 16:48 Red Blood Count 5.52, Mean Corpuscular Volume 87.5, Mean Corpuscular Hemoglobin 30.1, Mean Corpuscular Hemoglobin Concent 34.4, Red Cell Distribution Width 12.1, Neutrophils (%) (Auto) 82.5 H, Lymphocytes (%) (Auto) 11.4 L, Monocytes (%) (Auto) 5.0, Eosinophils (%) (Auto) 0.3, Basophils (%) (Auto) 0.5, Neutrophils # (Auto) 9.5 H, Lymphocytes # (Auto) 1.3 L, Monocytes # (Auto) 0.6, Eosinophils # (Auto) 0.0, Basophils # (Auto) 0.1 Home Medications Scheduled Amitriptyline HCl (Amitriptyline HCl) 25 Mg Tab, 25 MG PO QHS Pantoprazole Sodium (Pantoprazole Sodium) 40 Mg Tab, 40 MG PO DAILY Sucralfate (Carafate) 1 Gm Tab, 1 GM PO ACHS 4 times per day take on an empty stomach Allergies Coded Allergies: Ketorolac (Verified Adverse Reaction, Mild, NAUSEA, 06/08/17) GME ATTESTATION GME ATTESTATION My faculty preceptor for this patient encounter was physically present during the encounter and was fully available. All aspects of the patient interview, examination, medical decision making process, and medical care plan development were reviewed and approved by the faculty preceptor. The faculty preceptor is aware and concurs with the plan as stated in the body of this note and will attest to such by his/her cosignature. TATIANNA COBIAN DO Jul 09, 2018 22:29
[2018-07-09] MEDS ORDERED: ONDANSETRON 4MG/2ML VIAL (J2405) IV ONE (23:30)
[2018-07-09] MEDS ORDERED: MORPHINE 4 MG/ML 1ML VIAL/SYRINGE (J2270) IV ONE (23:30)
[2018-07-10] MEDS: NS 1,000 ML IV SCH ×2 (00:01→09:03)
[2018-07-10 00:17] LABS: AMPHETAMINES LEVEL URINE NEGATIVE (NEGATIVE); BARBITURATES URINE NEGATIVE (NEGATIVE); BENZODIAZEPINES URINE NEGATIVE (NEGATIVE); CANNABINOIDS URINE NEGATIVE (NEGATIVE); COCAINE METABOLITE URINE NEGATIVE (NEGATIVE); METHADONE URINE NEGATIVE (NEGATIVE); OPIATES URINE POSITIVE (NEGATIVE); PHENCYCLIDINE URINE NEGATIVE (NEGATIVE)
[2018-07-10 00:51] VITALS: BP 112/65
[2018-07-10] MEDS ORDERED: AMITRIPTYLINE 25 MG TAB PO SCH (02:57)
[2018-07-10 06:00] VITALS: BP 110/78
[2018-07-10 07:19] LABS: HEMOGLOBIN A1c 5.8 %
[2018-07-10] MEDS ORDERED: SUCRALFATE 1 GM TAB PO SCH (07:30)
[2018-07-10] MEDS ORDERED: ENOXAPARIN 40 MG/0.4 ML SYRINGE (J1650) SC SCH (09:00)
[2018-07-10] MEDS ORDERED: PANTOPRAZOLE 40MG TAB (PROTONIX) PO SCH (09:00)
--- NOTE | 2018-07-10 09:11 | REP ---
Complete abdominal sonography: History: Abdomen pain. Comparison study is a CT examination July 06, 2018. Sonographic findings: Scanning through right upper quadrant of the abdomen demonstrates normal sized thin-walled gallbladder without evidence of stone or polyp. Common bile duct is normal measuring 0.4 cm in greatest diameter. No focal liver lesion is seen. No pancreatic abnormalities observed. Pancreatic duct is not felt to be dilated. The spleen is normal in size homogeneous in texture measuring 10.9 cm in greatest diameter. Renal cortical echogenicity pattern is normal and contours are smooth on both sides. There is no evidence of hydronephrosis, cyst, or mass. Right kidney measures 13.0 x 6.7 x 4.9 cm. Left renal dimensions are 13.3 x 5.0 x 6.0 cm. A normal caliber aorta is seen measuring 2.5 cm in greatest AP dimension proximally and tapering distally. Impression: Unremarkable complete abdominal sonography. Electronically Signed by Harvey Braden MD 07/10/2018 09:59 A
--- NOTE | 2018-07-10 09:11 | CR.PDOC ---
General Date of Consultation: Jul 10, 2018 Referring Provider: GABRIELLA ESPARZA MD Attending Physician: YANDY ORANTES MD Consultation Primary physician/ hospitalist: Dr. Esparza Reason for consult: Persistent abdominal pain with nausea and vomiting HPI: 48-year-old male patient with chronic abdominal pain, previously following with [facility], multiple ER visit for similar symptoms, now again presented with persistent abdominal pain, nausea and vomiting. GI was consulted for further evaluation. Patient previously had 3 ER visit, and prior workup was negative, including CT abdomen and pelvis, lipase and amylase, CBC, and alcohol level and was discharged with pain control and proton pump inhibitor, and Carafate. Patient reports persistent pain despite taking those medications and reports it only gets better with percocet which he was on before. Patient unabel to tolerate anything by mouth, including food and medications due to abdominal pain and vomiting. He admits to decreased appetite, weight loss. Denies any fever, denies any changes in diet. Pertinent negative GI symptoms: Patient denies nausea, vomiting, diarrhea, abdominal pain, loss of appetite, early satiety or unintentional weight loss. No history of hematemesis, melena or hematochezia. Patient reports regular bowel movements. Review of Systems: GI: as stated above CVS: No chest pain, No palpitations, No leg swelling. 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 Skin: No rash : No hematuria, No burning sensation of the urine ENT: No ear discharge/ pain, No dysphagia. Eyes: No photophobia. Home medications: reviewed. Antithrombotic agents -none Medical h/o: As above. Surgical h/o: None on abdomen. Social h/o: Alcohol-social, tobacco-prior history, IVDA/ drugs-denies. Family h/o of GI cancers -none Prior Endoscopies: Previously had EGD and colonoscopy in [place], last as per patient in 2017 which was normal. Reports not available at this time. Prior GI evaluation: None in [facility] Exam: Vitals: reviewed General: Alert and oriented x 3, not in distress HEENT: NO pallor, no icterus. Normal oropharynx, NO cervical lymph nodes. Chest: symmetric with bilateral clear air entry, CVS: S1, S2 heard, normal, no murmurs . Abdomen: non-distended, no surgical scars, soft, non-tender, no palpable masses, normal bowel sounds heard. Rectal exam: Patient refused / Deferred at this time in view of scheduled colonoscopy. Extremities: no pedal edema, pulses palpable. BIKE MECHANIC: no focal motor or sensory deficits. Moves all extremities Skin: no rash. Labs: reviewed. Imaging tests: reviewed Pertinent positives: Mild elevated WBC of around 11,000. Utox negative for cannabinoids. Impression: -- Persistent epigastric pain with nausea and vomiting and inability to tolerate oral diet and medications -- needs further assessment, last CT scan showing po ssible gastritis/ pyloric wall thickening. Recommendations: - Patient educated about the test results, possible differential diagnoses and All questions answered. - NPO - IV Pantoprazole 40 mg every 12 hours. - Will schedule for urgent EGD today. - The procedure, indications, risks (bleeding, perforation, infection, hypotension, respiratory depression, allergy, need for endotracheal intubation, surgery, colostomy, cardiac arrest, even ), benefits, limitations (e.g., missing a lesion), and all other alternatives (including no intervention) were explained to the patient who understood and agreed for the procedure. Plan of care discussed with patient and primary team. Patient verbalized understanding and agreed with the plan. Vital Signs/I&O Vital Signs Date Time Temp Pulse Resp B/P (MAP) Pulse Ox O2 Delivery O2 Flow Rate FiO2 07/10/18 06:00 98.9 62 14 110/78 (89) 93 07/10/18 00:23 Room Air I&O- Last 24 Hours up to 6 AM 07/10/18 06:00 Intake Total 1000 ml Output Total 150 ml Balance 850 ml Laboratory Data CBC/BMP Laboratory Tests 07/09/18 16:48 Allergies Coded Allergies: Ketorolac (Verified Adverse Reaction, Mild, NAUSEA, 06/08/17) Home Medications Scheduled Amitriptyline HCl (Amitriptyline HCl) 25 Mg Tab, 25 MG PO QHS, (Reported) Pantoprazole Sodium (Pantoprazole Sodium) 40 Mg Tab, 40 MG PO DAILY, (Reported) Sucralfate (Carafate) 1 Gm Tab, 1 GM PO ACHS, (Reported) 4 times per day take on an empty stomach YANDY ORANTES MD Jul 10, 2018 09:11
[2018-07-10 09:21] LABS: ALBUMIN 3.2 GM/DL (3.2-5.2); ALT/SGPT 13 U/L (12-78); BILIRUBIN,TOTAL 0.6 MG/DL (0.2-1.0); BLOOD UREA NITROGEN 8 MG/DL (7-18); CARBON DIOXIDE LEVEL 27 MEQ/L (21-32); CHLORIDE LEVEL 109 MEQ/L (98-107); CREATININE FOR GFR 0.71 MG/DL (0.70-1.30); GLOMERULAR FILTRATION RATE > 60.0 (>60); GLUCOSE, FASTING 78 MG/DL (70-100); POTASSIUM SERUM 3.7 MEQ/L (3.5-5.1); SODIUM LEVEL 143 MEQ/L (136-145); TOTAL PROTEIN 5.6 GM/DL (6.4-8.2)
[2018-07-10 09:35] LABS: BASO % 0.3 % (0.0-1.0); EOS # 0.1 10^3/uL (0.0-0.50); EOS % 1.1 % (0.0-3.0); HEMATOCRIT 41.8 % (42.0-52.0); LYMPH # 2.3 10^3/uL (1.5-4.5); LYMPH % 25.2 % (24.0-44.0); MEAN CORPUSCULAR HGB CONC 33.5 g/dl (32.0-36.5); MEAN CORPUSCULAR VOLUME 89.7 fl (80.0-96.0); MONO # 0.7 10^3/uL (0.0-0.8); MONO % 8.3 % (0.0-5.0); NEUTROPHILS # 5.8 10^3/uL (1.8-7.7); NEUTROPHILS % 64.8 % (36.0-66.0); PLATELET COUNT, AUTOMATED 158 10^3/uL (150-450); RED BLOOD COUNT 4.66 10^6/uL (4.30-6.10); WHITE BLOOD COUNT 8.9 10^3/uL (4.0-10.0)
[2018-07-10] MEDS ORDERED: LEVS0.124 SL (12:32)
[2018-07-10] MEDS ORDERED: PROPOFOL 200 MG/20 ML VIAL As Ordered ONE (13:16)
[2018-07-10] MEDS ORDERED: LIDOCAINE 2% INJ 100 MG/5 ML SDV (FOR ANES.) As Ordered ONE (13:17)
--- NOTE | 2018-07-10 13:34 | ROOR ---
Patient Name: Casey Diana Procedure Date: 07/10/2018 1:14 PM Date of : 1970 Age: 48 Room: [facility] Gender: Male Note Status: Finalized Procedure: Upper GI endoscopy Indications: Epigastric abdominal pain, Nausea with vomiting, Persistent vomiting of unknown cause Providers: Yemi Vann MD Referring MD: Janelle Lacy DO Requesting Provider: Medicines: Monitored Anesthesia Care Complications: No immediate complications. Procedure: Pre-Anesthesia Assessment: - Prior to the procedure, a History and Physical was performed, and patient medications and allergies were reviewed. The patient is competent. The risks and benefits of the procedure and the sedation options and risks were discussed with the patient. All questions were answered and informed consent was obtained. Patient identification and proposed procedure were verified by the physician, the nurse and the anesthesiologist in the procedure room. Mental Status Examination: alert and oriented. Airway Examination: normal oropharyngeal airway and neck mobility. Respiratory Examination: clear to auscultation. CV Examination: normal. Prophylactic Antibiotics: The patient does not require prophylactic antibiotics. Prior Anticoagulants: The patient has taken no previous anticoagulant or antiplatelet agents. ASA Grade Assessment: II - A patient with mild systemic disease. After reviewing the risks and benefits, the patient was deemed in satisfactory condition to undergo the procedure. The anesthesia plan was to use monitored anesthesia care (MAC). Immediately prior to administration of medications, the patient was re-assessed for adequacy to receive sedatives. The heart rate, respiratory rate, oxygen saturations, blood pressure, adequacy of pulmonary ventilation, and response to care were monitored throughout the procedure. The physical status of the patient was re-assessed after the procedure. The Endoscope was introduced through the mouth, and advanced to the second part of duodenum. The upper GI endoscopy was accomplished without difficulty. The patient tolerated the procedure well. Findings: The examined esophagus was normal. The Z-line was regular and was found 41 cm from the incisors. Localized severe inflammation characterized by erosions, friability, granularity and aphthous ulcerations was found in the gastric antrum. Biopsies were taken with a cold forceps for Helicobacter pylori testing. Biopsies were taken with a cold forceps for histology. Verification of patient identification for the specimen was done by the physician and nurse using the patient's name, date and medical record number. Estimated blood loss was minimal. No other significant abnormalities were identified in a careful examination of the stomach. No gross lesions were noted in the duodenal bulb, in the second portion of the duodenum, in the major papilla and in the area of the papilla. Biopsies for histology were taken with a cold forceps for evaluation of celiac disease. Impression: - Normal esophagus. - Z-line regular, 41 cm from the incisors. - Gastritis. Biopsied. - No gross lesions in the duodenal bulb, in the second portion of the duodenum, in the major papilla and in the area of the papilla. Biopsied. Recommendation: - Patient has a contact number available for emergencies. The signs and symptoms of potential delayed complications were discussed with the patient. Return to normal activities tomorrow. Written discharge instructions were provided to the patient. - Advance diet as tolerated today. - Continue present medications. 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 - Use Zofran (ondansetron) 4 mg PO BID ( take prior to meals to avoid nausea) for 2 weeks. - Return to GI clinic in [facility] (address [address], [address], [place], [facility]) in 4 -- 6 weeks. Please call GI clinic @ [phone] for apppointment date and time. - Return to primary care physician. Yemi Vann MD Yemi Vann MD 07/10/2018 1:34:15 PM This report has been signed electronically. Number of Addenda: 0 Note Initiated On: 07/10/2018 1:14 PM Estimated Blood Loss: Estimated blood loss was minimal.
[2018-07-10 13:50] VITALS: BP 114/61
[2018-07-10] MEDS ORDERED: ZOFR4TAB16 PO (15:47)
== END 2018-07-10 17:35 | disposition home or self-care (01) ==
LOC: M ED 13:54 → M ED INP 23:58 → M MS4PR 07-10 00:55
PROVIDERS: ADMIT Internal Medicine; ATTEND Family Medicine
DX: K29.70 Gastritis, unspecified, without bleeding (principal); R10.13 Epigastric pain; R11.2 Nausea with vomiting, unspecified; F17.210 Nicotine dependence, cigarettes, uncomplicated; Z79.899 Other long term (current) drug therapy; Z88.8 Allergy status to other drugs, medicaments and biological substances; F41.9 Anxiety disorder, unspecified; J44.9 Chronic obstructive pulmonary disease, unspecified
CPT/HCPCS: 36415; 43239; 76700; 80048; 80053; 80076; 80307; 81001; 82550; 82553; 83036; 83690; 85025; 85610; 85730; 88305; 93005; 96361; 96374; 96375; 99284; C9113; J2270; J2405; J2765; J3010

== ENCOUNTER 2018-07-12 00:29 | Emergency (ER) | payer OTHER ==
[~2018-07-12 00:29] MED LIST changes: +CARA1TAB6; +LEVS0.124 SL; +PROT1TAB2
[2018-07-12 01:31] LABS: BASO # 0.1 10^3/uL (0.0-0.2); BASO % 0.5 % (0.0-1.0); EOS # 0.1 10^3/uL (0.0-0.50); EOS % 0.5 % (0.0-3.0); HEMATOCRIT 49.9 % (42.0-52.0); LYMPH # 1.5 10^3/uL (1.5-4.5); LYMPH % 12.6 % (24.0-44.0); MEAN CORPUSCULAR HEMOGLOBIN 29.7 pg (27.0-33.0); MEAN CORPUSCULAR HGB CONC 34.3 g/dl (32.0-36.5); MEAN CORPUSCULAR VOLUME 86.8 fl (80.0-96.0); MONO # 0.7 10^3/uL (0.0-0.8); MONO % 5.4 % (0.0-5.0); NEUTROPHILS # 9.8 10^3/uL (1.8-7.7); NEUTROPHILS % 80.7 % (36.0-66.0); PLATELET COUNT, AUTOMATED 193 10^3/uL (150-450); RED BLOOD COUNT 5.75 10^6/uL (4.30-6.10); WHITE BLOOD COUNT 12.2 10^3/uL (4.0-10.0)
[2018-07-12 01:38] LABS: HEMOGLOBIN 17.1 g/dl (13.5-17.5)
[2018-07-12 02:06] LABS: ALBUMIN 4.2 GM/DL (3.2-5.2); ALT/SGPT 14 U/L (12-78); BILIRUBIN,DIRECT 0.1 MG/DL (0.0-0.2); BILIRUBIN,TOTAL 0.7 MG/DL (0.2-1.0); BLOOD UREA NITROGEN 8 MG/DL (7-18); CALCIUM LEVEL 9.1 MG/DL (8.5-10.1); CARBON DIOXIDE LEVEL 26 MEQ/L (21-32); CHLORIDE LEVEL 106 MEQ/L (98-107); CK-MB VALUE MASS < 1.0 NG/ML (<3.6); CPK CREATINE PHOSPHOKINASE 78 U/L (39-308); CREATININE FOR GFR 0.73 MG/DL (0.70-1.30); ETHYL ALCOHOL (ETHANOL) < 0.003 % (0.000-0.010); GLOMERULAR FILTRATION RATE > 60.0 (>60); GLUCOSE, FASTING 81 MG/DL (70-100); LIPASE 93 U/L (73-393); MB/CK RELATIVE INDEX 1.28 (< OR =4); POTASSIUM SERUM 3.7 MEQ/L (3.5-5.1); SODIUM LEVEL 141 MEQ/L (136-145); TOTAL PROTEIN 7.2 GM/DL (6.4-8.2); TROPONIN I < 0.02 NG/ML (< 0.10)
[2018-07-12] MEDS ORDERED: SUCRALFATE SUSP 1GM/10ML UD PO ONE (02:15)
[2018-07-12] MEDS ORDERED: PANTOPRAZOLE 40MG INJ (PROTONIX) (C9113) IV ONE (02:15)
[2018-07-12] MEDS ORDERED: GI COCKTAIL 50ML BTL(HYOSCYAMINE/MAALOX/LIDOCAINE VISCOUS)(1:3:1) PO ONE (02:15)
[2018-07-12 03:52] VITALS: BP 123/69
[2018-07-12] MEDS ORDERED: ACETAMINOPHEN 325 MG TAB PO ONE (04:00)
== END 2018-07-12 04:11 | disposition home or self-care (01) ==
LOC: M ED 00:29 → EDBD 00:29 → M ED 04:11
DX: K29.70 Gastritis, unspecified, without bleeding (principal); J44.9 Chronic obstructive pulmonary disease, unspecified; Z87.19 Personal history of other diseases of the digestive system; D75.1 Secondary polycythemia; F10.20 Alcohol dependence, uncomplicated; F17.200 Nicotine dependence, unspecified, uncomplicated; Z88.5 Allergy status to narcotic agent; Z79.899 Other long term (current) drug therapy
CPT/HCPCS: 80048; 80076; 82550; 82553; 83690; 85025; 96374; 99284; C9113; G0480

== ENCOUNTER 2018-08-12 16:46 | Observation (INO) | payer OTHER ==
[~2018-08-12] VITALS: Ht 172.7 cm; Wt 60.2 kg
[~2018-08-12 16:46] MED LIST changes: -/ONDA4TA; -/PANT40TA; +METO5TAB77 PO; -METR-201 PO; +METR-265 PO; -NORC1TAB4 PO; +NORC1TAB7 PO; +ONDA-1; -[UNRECOGNIZED DRUG - CODE] PO
[2018-08-12] MEDS ORDERED: ONDANSETRON 4MG/2ML VIAL (J2405) IV ONE (17:30)
[2018-08-12] MEDS ORDERED: NS 1,000 ML IV ONE ×2 (17:30→18:30)
[2018-08-12] MEDS: fentaNYL 100 MCG/2 ML INJECTION (J3010) IV PRN ×2 (17:40→18:12)
[2018-08-12 17:42] LABS: BASO # 0.1 10^3/uL (0.0-0.2); BASO % 0.4 % (0.0-1.0); EOS % 0.1 % (0.0-3.0); HEMOGLOBIN 19.3 g/dl (13.5-17.5); LYMPH # 1.7 10^3/uL (1.5-4.5); LYMPH % 12.2 % (24.0-44.0); MEAN CORPUSCULAR HEMOGLOBIN 30.1 pg (27.0-33.0); MEAN CORPUSCULAR HGB CONC 34.5 g/dl (32.0-36.5); MEAN CORPUSCULAR VOLUME 87.2 fl (80.0-96.0); MONO # 0.6 10^3/uL (0.0-0.8); MONO % 4.7 % (0.0-5.0); NEUTROPHILS # 11.1 10^3/uL (1.8-7.7); NEUTROPHILS % 82.1 % (36.0-66.0); PLATELET COUNT, AUTOMATED 229 10^3/uL (150-450); RED BLOOD COUNT 6.42 10^6/uL (4.30-6.10); WHITE BLOOD COUNT 13.6 10^3/uL (4.0-10.0)
[2018-08-12 17:54] LABS: INR 0.94; PARTIAL THROMBOPLASTIN TIME 29.1 SECONDS (25.4-37.6); PROTHROMBIN TIME 12.7 SECONDS (12.1-14.4)
[2018-08-12 17:56] LABS: ALT/SGPT 22 U/L (12-78); AMYLASE 81 U/L (25-115); BILIRUBIN,DIRECT < 0.1 MG/DL (0.0-0.2); BILIRUBIN,TOTAL 0.5 MG/DL (0.2-1.0); BLOOD UREA NITROGEN 12 MG/DL (7-18); CALCIUM LEVEL 10.3 MG/DL (8.5-10.1); CARBON DIOXIDE LEVEL 24 MEQ/L (21-32); CHLORIDE LEVEL 105 MEQ/L (98-107); CK-MB VALUE MASS < 1.0 NG/ML (<3.6); CPK CREATINE PHOSPHOKINASE 81 U/L (39-308); CREATININE FOR GFR 1.07 MG/DL (0.70-1.30); GLOMERULAR FILTRATION RATE > 60.0 (>60); GLUCOSE, FASTING 122 MG/DL (70-100); LIPASE 118 U/L (73-393); MB/CK RELATIVE INDEX 1.23 (< OR =4); POTASSIUM SERUM 4.6 MEQ/L (3.5-5.1); SODIUM LEVEL 138 MEQ/L (136-145); TOTAL PROTEIN 8.6 GM/DL (6.4-8.2); TROPONIN I < 0.02 NG/ML (< 0.10)
[2018-08-12] MEDS ORDERED: ISOVUE-370 76% 100ML VIAL (Q9967) As Ordered ONE (18:38)
[2018-08-12] MEDS: HYDROMORPHONE HCL 0.5 MG/ 0.5 ML SYRINGE (J1170 PER 1) IV PRN ×2 (19:09→21:10)
--- NOTE | 2018-08-12 20:24 | REP ---
Clinical: Abdominal pain. Comparison: 07/06/2018. Technique: Axial contrast enhanced images from the lung bases to the pubic symphysis using 100 ml Isovue 370 intravenous contrast material with coronal and sagittal re-formations. Findings: Lung bases demonstrate minimal posterior basilar dependent changes. Visualized heart and pericardium normal. The liver, spleen, pancreas, gallbladder, bilateral adrenal glands and kidneys are normal / stable. The enteric system is without obstruction. Colonic diverticulosis noted without acute diverticulitis. Normal terminal ileum and appendix identified in the right lower quadrant. A mild colitis cannot be excluded and should be correlated with physical examination. Pelvis demonstrates normal bladder and age appropriate prostate/seminal vesicles. No ascites. No free air. No adenopathy. Atherosclerotic changes to the aorta and vasculature without aneurysm. Musculoskeletal structures are stable. Impression: 1. Cannot exclude a mild colitis and correlation is recommended. 2. Diverticulosis without acute diverticulitis. 3. No further acute abdominopelvic pathology appreciated. No ascites. No focal inflammatory stranding, or adenopathy. Electronically Signed by Bib Ziegler MD 08/12/2018 08:16 P
[2018-08-12] MEDS ORDERED: CIPROFLOXACIN 400 MG in APPROPRIATE DILUENT 1 EA IV ONE (20:45)
[2018-08-12] MEDS ORDERED: metroNIDAZOLE 500 MG in APPROPRIATE DILUENT 1 EA IV ONE (20:45)
[2018-08-12] MEDS ORDERED: ZOFR4TAB16 PO (21:10)
[2018-08-12] MEDS ORDERED: HYOS0.1214 PO (21:10)
--- NOTE | 2018-08-12 22:16 | ECGEPIP ---
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
--- NOTE | 2018-08-12 23:03 | HPEPDOC ---
[facility] Medical History & Physical History and Physical CHIEF COMPLAINT: Abdominal pain HISTORY OF PRESENT ILLNESS: Patient is a 38-year-old male with past medical his tory of alcohol chronic pancreatitis, COPD, diverticulosis presented to ER with complaints of abdominal pain and nausea vomiting. Patient stated that he has chronic abdominal pain and used to be a heavy drinker but has quit more than 10 years ago. This morning when he woke up pain is more severe to normal associated with some chills, nausea and vomiting. CT scan ER showed possible colitis. He otherwise denies any diarrhea, fever, blood in stools or any other symptoms. PAST MEDICAL HISTORY: 1. Chronic alcohol pancreatitis. 2. Diverticulosis. 3. COPD. PAST SURGICAL HISTORY: 1. Stent placement in the pancreatic duct. SOCIAL HISTORY: Former heavy drinker, has quit for 10 years. Smoked half pack per day for 30 years. Recreational marijuana use. FAMILY HISTORY: Mother with emphysema ALLERGIES: Please see below. REVIEW OF SYSTEMS: General: Denies fever and chills Eyes: Denies visual changes/pain HENT: Denies hearing changes, discharge, sore throat Cardiovascular: denies chest pain, palpitations Pulmonary: no cough, dyspnea, wheezing GI: + nausea, vomiting, and generalized abdominal pain : denies dysuria, urinary frequency Neuro: denies numbness or weakness HOME MEDICATIONS: Please see below. PHYSICAL EXAMINATION: General: No acute distress, Alert Eyes: Normal sclera, EOMI, JAKE HENT: Atraumatic, neck supple, moist mucous membranes Cardiovascular: Normal rate, normal rhythm. No murmurs appreciated. Pulmonary: Clear to auscultation b/l, no wheezing GI: Soft, mild epigastric tenderness Skin: Warm and dry Neuro: CN grossly intact. No focal deficits. Strengths equal b/l. Psych: oriented x 3 LABORATORY DATA: See below. MICROBIOLOGY: Please see below. ASSESSMENT: Acute on chronic pancreatitis Diverticulosis Suspected colitis COPD PLAN: 1. Acute on chronic pancreatitis -IV fluid support, pain management. - Start with morphine at this time as patient does not seem to be in any apparent distress although he prefers Dilaudid. 2. Suspected colitis - No significant tenderness on exam. - Possible mild viral colitis with supportive care. - s/p 1 dose of cipro and flagyl in ER. - IVF. Consider continuing Abx if patient develop fevers or worsens clinically. - f/u LA post IVF. 3. Diverticulosis - no issues at this time 4. COPD -Not in exacerbation. - duonebs PRN. Patient is high risk due to acute on chronic pancreatitis needing IVF and IV analgesic Estimated length of stay 2 days with expected disposition to home. Vital Signs Vital Signs Date Time Temp Pulse Resp B/P (MAP) Pulse Ox O2 Delivery O2 Flow Rate FiO2 08/12/18 22:38 73 18 119/67 (84) 97 08/12/18 16:49 97.0 Room Air Laboratory Data Labs 24H Laboratory Tests 2 08/12/18 17:10: Immature Granulocyte % (Auto) 0.5, White Blood Count 13.6H, Red Blood Count 6.42H, Hemoglobin 19.3H, Hematocrit 56.0H, Mean Corpuscular Volume 87.2, Mean Corpuscular Hemoglobin 30.1, Mean Corpuscular Hemoglobin Concent 34.5, Red Cell Distribution Width 13.2, Platelet Count 229, Neutrophils (%) (Auto) 82.1H, Lymphocytes (%) (Auto) 12.2L, Monocytes (%) (Auto) 4.7, Eosinophils (%) (Auto) 0.1, Basophils (%) (Auto) 0.4, Neutrophils # (Auto) 11.1H, Lymphocytes # (Auto) 1.7, Monocytes # (Auto) 0.6, Eosinophils # (Auto) 0.0, Basophils # (Auto) 0.1, Nucleated Red Blood Cells % (auto) 0.0, Prothrombin Time 12.7, Prothromb Time International Ratio 0.94, Activated Partial Thromboplast Time 29.1, Anion Gap 9, Glomerular Filtration Rate > 60.0, Calcium Level 10.3H, Aspartate Amino Transf (AST/SGOT) 17, Alanine Aminotransferase (ALT/SGPT) 22, Alkaline Phosphatase 130H, Total Bilirubin 0.5, Direct Bilirubin < 0.1, Total Creatine Kinase 81, Creatine Kinase MB < 1.0, Creatine Kinase MB Relative Index 1.23, Troponin I < 0.02, Total Protein 8.6H, Albumin 5.0, Albumin/Globulin Ratio 1.39, Amylase Level 81, Lipase 118 08/12/18 17:45: Lactic Acid Level 3.1*H 08/12/18 20:58: Urine Color YELLOW, Urine Appearance CLEAR, Urine pH 6.0, Urine Specific [place] >1.060H, Urine Protein 2+H, Urine Glucose (UA) NEGATIVE, Urine Ketones NEGATIVE, Urine Blood NEGATIVE, Urine Nitrite NEGATIVE, Urine Bilirubin NEGATIVE, Urine Urobilinogen 0.2, Urine Leukocyte Esterase NEGATIVE, Urine WBC (Auto) 3, Urine RBC (Auto) 3, Urine Hyaline Casts (Auto) 0, Urine Bacteria (Auto) NEGATIVE, Urine Squamous Epithelial Cells 1, Urine Mucus (Auto) LARGE, Urine Sperm (Auto) SMALLH 08/12/18 22:09: Lactic Acid Followup at 4 Hours 2.9*H CBC/BMP Laboratory Tests 08/12/18 17:10 Red Blood Count 6.42 H, Mean Corpuscular Volume 87.2, Mean Corpuscular Hemoglobin 30.1, Mean Corpuscular Hemoglobin Concent 34.5, Red Cell Distribution Width 13.2, Neutrophils (%) (Auto) 82.1 H, Lymphocytes (%) (Auto) 12.2 L, Mon ocytes (%) (Auto) 4.7, Eosinophils (%) (Auto) 0.1, Basophils (%) (Auto) 0.4, Neutrophils # (Auto) 11.1 H, Lymphocytes # (Auto) 1.7, Monocytes # (Auto) 0.6, Eosinophils # (Auto) 0.0, Basophils # (Auto) 0.1 Microbiology Microbiology 08/12/18 Blood Culture, Received Pending 08/12/18 Blood Culture, Received Pending Home Medications Scheduled Amitriptyline HCl (Amitriptyline HCl) 25 Mg Tab, 25 MG PO QHS Pantoprazole Sodium (Pantoprazole Sodium) 40 Mg Tab, 40 MG PO DAILY Scheduled PRN Hyoscyamine Sulfate (Hyoscyamine Sulfate) 0.125 Mg Tab, 0.125 MG PO Q4H PRN for PAIN Ondansetron HCl (Zofran) 4 Mg Tab, 4 MG PO BID PRN for NAUSEA Allergies Coded Allergies: ketorolac (Verified Adverse Reaction, Mild, NAUSEA, 08/12/18) TASNEEM FREDERICK MD Aug 12, 2018 23:03
[2018-08-13] MEDS: NS 1,000 ML IV SCH ×3 (00:25→10:34)
[2018-08-13] MEDS: MORPHINE 4 MG/ML 1ML VIAL/SYRINGE (J2270) IV PRN ×3 (00:25→05:05)
[2018-08-13 00:31] VITALS: BP 147/74
[2018-08-13] MEDS ORDERED: MORPHINE 4 MG/ML 1ML VIAL/SYRINGE (J2270) IV ONE (02:15)
[2018-08-13 04:45] VITALS: BP 122/81
[2018-08-13] MEDS ORDERED: PERCOCET 5MG/325MG TAB PO PRN ×2 (08:45)
[2018-08-13 09:21] LABS: HEMATOCRIT 42.8 % (42.0-52.0); MEAN CORPUSCULAR HEMOGLOBIN 29.6 pg (27.0-33.0); MEAN CORPUSCULAR HGB CONC 33.2 g/dl (32.0-36.5); MEAN CORPUSCULAR VOLUME 89.2 fl (80.0-96.0); PLATELET COUNT, AUTOMATED 160 10^3/uL (150-450); WHITE BLOOD COUNT 12.9 10^3/uL (4.0-10.0)
[2018-08-13 09:39] LABS: HEMOGLOBIN 14.2 g/dl (13.5-17.5)
[2018-08-13 09:51] LABS: ALBUMIN 3.3 GM/DL (3.2-5.2); ALT/SGPT 15 U/L (12-78); BILIRUBIN,TOTAL 0.4 MG/DL (0.2-1.0); BLOOD UREA NITROGEN 11 MG/DL (7-18); CALCIUM LEVEL 7.7 MG/DL (8.5-10.1); CARBON DIOXIDE LEVEL 28 MEQ/L (21-32); CHLORIDE LEVEL 108 MEQ/L (98-107); CREATININE FOR GFR 0.71 MG/DL (0.70-1.30); GLOMERULAR FILTRATION RATE > 60.0 (>60); GLUCOSE, FASTING 94 MG/DL (70-100); POTASSIUM SERUM 3.9 MEQ/L (3.5-5.1); SODIUM LEVEL 141 MEQ/L (136-145); TOTAL PROTEIN 5.8 GM/DL (6.4-8.2)
[2018-08-13 10:00] VITALS: BP 135/70
--- NOTE | 2018-08-13 10:17 | IPNPDOC ---
Date Seen The patient was seen on 08/13/18. Progress Note ADMITTING DIAGNOSIS: 1. Acute on chronic pancreatitis 2. Suspected colitis 3. Diverticulosis 4. COPD DISCHARGE DIAGNOSIS 1. Viral colitis 2. History of alcoholic pancreatitis 3. Diverticulosis 4. COPD 5. History of alcohol abuse SUBJECTIVE: Patient is a 48-year-old male who is admitted for possible viral colitis. Patient was seen and examined this morning sitting up in his bed appears in no acute distress he states that he is feeling much better. 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 He would like to advance his diet to a clear liquid to see these able to tolerate it and then like to advance it further. He denies any shortness of breath trouble breathing nausea vomiting diarrhea. His last bowel movements was yesterday afternoon. He states that his last meal was 2 evenings ago and he is hungry today. He has no other complaints at this time. No overnight events reported by nursing. OBJECTIVE PHYSICAL EXAMINATION: VITAL SIGNS: Please see below. GENERAL: 48-year-old male sitting up at bedside does not appear in acute distress for for answering questions Eyes: Normal sclera, EOMI, JAKE HENT: Atraumatic, neck supple, moist mucous membranes Cardiovascular: Normal rate, normal rhythm. No murmurs appreciated. Pulmonary: Clear to auscultation b/l, no wheezing GI: Soft, nontender no rebound and guarding positive bowel sounds in all 4 quadrants Skin: Warm and dry LABORATORY DATA, IMAGING STUDIES, MICROBIOLOGY: Please see below. ASSESSMENT AND PLAN: Patient is a 38-year-old male with past medical history of alcohol pancreatitis, COPD, diverticulosis presented to ER with complaints of abdominal pain and nausea vomiting and was admitted for possible colitis PROBLEMS: Viral colitis -Benign exam - s/p 1 dose of cipro and flagyl in ER. -Clinically improving with supportive measures -De-escalated pain management -Advance to clear liquids History of alcohol pancreatitis -Imaging was negative for acute pancreatitis -States to have minimal epigastric tenderness which is not reproducible on physical exam -Bolused 1 L in the ER currently on 200 mL per hour will saline -Advancing diet per patient request Diverticulosis -Imaging negative for diverticulitis -Asymptomatic no painless rectal bleeding COPD -Stable and not in exacerbation - duonebs PRN. Hx of alcohol abuse -CIWA DVT PPx DISPOSITION: patient was tolerating meals and required no pain medications. Per his request he was discharged home and advised to fu with PCP as well as GI referral. - VS, I&O, 24H, [place] Vital Signs/I&O Vital Signs Date Time Temp Pulse Resp B/P (MAP) Pulse Ox O2 Delivery O2 Flow Rate FiO2 08/13/18 05:15 16 08/13/18 04:45 98.5 78 122/81 (95) 96 08/12/18 16:49 Room Air I&O- Last 24 Hours up to 6 AM 08/13/18 06:00 Intake Total 2200 ml Output Total 375 ml Balance 1825 ml Laboratory Data 24H LABS Laboratory Tests 2 08/12/18 17:10: Immature Granulocyte % (Auto) 0.5, White Blood Count 13.6H, Red Blood Count 6. 42H, Hemoglobin 19.3H, Hematocrit 56.0H, Mean Corpuscular Volume 87.2, Mean Corpuscular Hemoglobin 30.1, Mean Corpuscular Hemoglobin Concent 34.5, Red Cell Distribution Width 13.2, Platelet Count 229, Neutrophils (%) (Auto) 82.1H, Lymphocytes (%) (Auto) 12.2L, Monocytes (%) (Auto) 4.7, Eosinophils (%) (Auto) 0.1, Basophils (%) (Auto) 0.4, Neutrophils # (Auto) 11.1H, Lymphocytes # (Auto) 1.7, Monocytes # (Auto) 0.6, Eosinophils # (Auto) 0.0, Basophils # (Auto) 0.1, Nucleated Red Blood Cells % (auto) 0.0, Prothrombin Time 12.7, Prothromb Time International Ratio 0.94, Activated Partial Thromboplast Time 29.1, Anion Gap 9, Glomerular Filtration Rate > 60.0, Calcium Level 10.3H, Aspartate Amino Transf (AST/SGOT) 17, Alanine Aminotransferase (ALT/SGPT) 22, Alkaline Phosphatase 130H, Total Bilirubin 0.5, Direct Bilirubin < 0.1, Total Creatine Kinase 81, Creatine Kinase MB < 1.0, Creatine Kinase MB Relative Index 1.23, Troponin I < 0.02, Total Protein 8.6H, Albumin 5.0, Albumin/Globulin Ratio 1.39, Amylase Level 81, Lipase 118 08/12/18 17:45: Lactic Acid Level 3.1*H 08/12/18 20:58: Urine Color YELLOW, Urine Appearance CLEAR, Urine pH 6.0, Urine Specific [place] >1.060H, Urine Protein 2+H, Urine Glucose (UA) NEGATIVE, Urine Ketones NEGATIVE, Urine Blood NEGATIVE, Urine Nitrite NEGATIVE, Urine Bilirubin NEGATIVE, Urine Urobilinogen 0.2, Urine Leukocyte Esterase NEGATIVE, Urine WBC (Auto) 3, Urine RBC (Auto) 3, Urine Hyaline Casts (Auto) 0, Urine Bacteria (Auto) NEGATIVE, Urine Squamous Epithelial Cells 1, Urine Mucus (Auto) LARGE, Urine Sperm (Auto) SMALLH 08/12/18 22:09: Lactic Acid Followup at 4 Hours 2.9*H 08/13/18 08:52: Nucleated Red Blood Cells % (auto) 0.0, Anion Gap 5L, Glomerular Filtration Rate > 60.0, Lactic Acid Level 0.9, Blood Urea Nitrogen 11, Creatinine 0.71, Sodium Level 141, Potassium Level 3.9, Chloride Level 108H, Carbon Dioxide Level 28, Calcium Level 7.7#L, Aspartate Amino Transf (AST/SGOT) 10, Alanine Aminotransferase (ALT/SGPT) 15, Alkaline Phosphatase 87, Total Bilirubin 0.4, Total Protein 5.8#L, Albumin 3.3#, Albumin/Globulin Ratio 1.32 CBC/BMP Laboratory Tests 08/12/18 17:10 Red Blood Count 6.42 H, Mean Corpuscular Volume 87.2, Mean Corpuscular Hemoglobin 30.1, Mean Corpuscular Hemoglobin Concent 34.5, Red Cell Distribution Width 13.2, Neutrophils (%) (Auto) 82.1 H, Lymphocytes (%) (Auto) 12.2 L, Monocytes (%) (Auto) 4.7, Eosinophils (%) (Auto) 0.1, Basophils (%) (Auto) 0.4, Neutrophils # (Auto) 11.1 H, Lymphocytes # (Auto) 1.7, Monocytes # (Auto) 0.6, Eosinophils # (Auto) 0.0, Basophils # (Auto) 0.1 08/13/18 08:52 Red Blood Count 4.80, Mean Corpuscular Volume 89.2, Mean Corpuscular Hemoglobin 29.6, Mean Corpuscular Hemoglobin Concent 33.2, Red Cell Distribution Width 13.1, Calcium Level 7.7 #L, Aspartate Amino Transf (AST/SGOT) 10, Alanine Aminotransferase (ALT/SGPT) 15, Alkaline Phosphatase 87, Total Bilirubin 0.4, Total Protein 5.8 #L, Albumin 3.3 # Microbiology Microbiology 08/12/18 Blood Culture, Received Pending 08/12/18 Blood Culture, Received Pending GME ATTESTATION GME ATTESTATION My faculty preceptor for this patient encounter was physically present during the encounter and was fully available. All aspects of the patient interview, examination, medical decision making process, and medical care plan development were reviewed and approved by the faculty preceptor. The faculty preceptor is aware and concurs with the plan as stated in the body of this note and will attest to such by his/her cosignature. CLIFTON COOK DO Aug 13, 2018 10:17
== END 2018-08-13 14:00 | disposition home or self-care (01) ==
LOC: M ED 16:46 → M ED INP 22:44 → M MS4PR 08-13 00:11
PROVIDERS: ADMIT Student in an Organized Health Care Education/Training Program; ATTEND Student in an Organized Health Care Education/Training Program
DX: K52.9 Noninfective gastroenteritis and colitis, unspecified (principal); Z87.19 Personal history of other diseases of the digestive system; K57.90 Diverticulosis of intestine, part unspecified, without perforation or abscess without bleeding; J44.9 Chronic obstructive pulmonary disease, unspecified; Z86.59 Personal history of other mental and behavioral disorders; K86.1 Other chronic pancreatitis; Z79.899 Other long term (current) drug therapy; Z88.8 Allergy status to other drugs, medicaments and biological substances
CPT/HCPCS: 36415; 74177; 80048; 80053; 80076; 81001; 82150; 82550; 82553; 83605; 83690; 85025; 85027; 85610; 85730; 87040; 93005; 93041; 96361; 96374; 96375; 96376; 99285; J0744; J1170; J2270; J2405; J3010; Q9967

== ENCOUNTER 2018-08-30 16:30 | Inpatient (IN) | payer OTHER ==
[~2018-08-30] VITALS: Ht 172.7 cm; Wt 56.9 kg
[~2018-08-30 16:30] MED LIST changes: +HYOS0.1214 PO
[2018-08-30] MEDS ORDERED: NS 1,000 ML IV ONE ×3 (17:00→21:45)
[2018-08-30] MEDS ORDERED: MORPHINE 4 MG/ML 1ML VIAL/SYRINGE (J2270) IV ONE (17:00)
[2018-08-30] MEDS ORDERED: ONDANSETRON 4MG/2ML VIAL (J2405) IV ONE (17:00)
[2018-08-30] MEDS: GASTROGRAFIN SOLUTION 30ML PO SCH ×2 (17:55→18:00)
[2018-08-30 18:03] LABS: BASO # 0.1 10^3/uL (0.0-0.2); BASO % 0.4 % (0.0-1.0); EOS % 0.1 % (0.0-3.0); HEMATOCRIT 60.1 % (42.0-52.0); LYMPH # 1.5 10^3/uL (1.5-4.5); LYMPH % 10.1 % (24.0-44.0); MEAN CORPUSCULAR HEMOGLOBIN 29.9 pg (27.0-33.0); MEAN CORPUSCULAR VOLUME 87.7 fl (80.0-96.0); MONO # 0.7 10^3/uL (0.0-0.8); MONO % 4.5 % (0.0-5.0); NEUTROPHILS # 12.9 10^3/uL (1.8-7.7); NEUTROPHILS % 84.4 % (36.0-66.0); PLATELET COUNT, AUTOMATED 266 10^3/uL (150-450); RED BLOOD COUNT 6.85 10^6/uL (4.30-6.10); WHITE BLOOD COUNT 15.2 10^3/uL (4.0-10.0)
[2018-08-30 18:13] LABS: HEMOGLOBIN 20.5 g/dl (13.5-17.5)
[2018-08-30 18:25] LABS: ALBUMIN 5.2 GM/DL (3.2-5.2); ALT/SGPT 17 U/L (12-78); BILIRUBIN,DIRECT 0.1 MG/DL (0.0-0.2); BILIRUBIN,TOTAL 0.9 MG/DL (0.2-1.0); BLOOD UREA NITROGEN 14 MG/DL (7-18); CALCIUM LEVEL 11.1 MG/DL (8.5-10.1); CARBON DIOXIDE LEVEL 25 MEQ/L (21-32); CHLORIDE LEVEL 101 MEQ/L (98-107); CK-MB VALUE MASS < 1.0 NG/ML (<3.6); CPK CREATINE PHOSPHOKINASE 66 U/L (39-308); CREATININE FOR GFR 1.72 MG/DL (0.70-1.30); GLOMERULAR FILTRATION RATE 45.2 (>60); GLUCOSE, FASTING 143 MG/DL (70-100); LIPASE 133 U/L (73-393); MB/CK RELATIVE INDEX 1.51 (< OR =4); SODIUM LEVEL 136 MEQ/L (136-145); TROPONIN I < 0.02 NG/ML (< 0.10)
[2018-08-30] MEDS ORDERED: HALOPERIDOL 5 MG/ML VIAL (J1630) IV ONE (18:45)
[2018-08-30] MEDS ORDERED: PROMETHAZINE INJ 25 MG/ML VIAL (J2550) IV ONE (19:30)
--- NOTE | 2018-08-30 19:56 | REPVR ---
EXAM: CT Abdomen and Pelvis Without Contrast EXAM DATE/TIME: 08/30/2018 7:02 PM CLINICAL HISTORY: 48 years old, male; Abdominal pain; Generalized TECHNIQUE: Imaging protocol: Axial computed tomography images of the abdomen and pelvis without contrast. Coronal and sagittal reformatted images were created and reviewed. Radiation optimization: All CT scans at this facility use at least one of these dose optimization techniques: automated exposure control; mA and/or kV adjustment per patient size (includes targeted exams where dose is matched to clinical indication); or iterative reconstruction. COMPARISON: CT ABD/PEL W/IV CONTRAST ONLY 08/12/2018 8:00 PM FINDINGS: Limitations: This examination is limited by the lack of IV and oral contrast. ABDOMEN: Liver: Unremarkable. No mass. Gallbladder and bile ducts: Normal. No calcified stones. No ductal dilation. Pancreas: Unremarkable. No ductal dilation. Spleen: Unremarkable. No splenomegaly. Adrenals: Normal. No mass. Kidneys and ureters: Punctate nonobstructing stone in left kidney lower pole (axial image 57). No left ureteral stone identified. Unremarkable right kidney and right ureter. Stomach and bowel: Colonic diverticulosis without diverticulitis. Unremarkable stomach and small bowel as visualized. No bowel obstruction. Appendix: No evidence of appendicitis. PELVIS: Bladder: Incompletely distended urinary bladder without evidence of calcified stone. Reproductive: Unremarkable as visualized. ABDOMEN and PELVIS: Intraperitoneal space: No free air. No significant fluid collection. Bones/joints: Degenerative disc disease and facet arthrosis of the lumbar spine, most severe at L1-L2. No acute fracture. Soft tissues: Unremarkable. Vasculature: Mild to moderate atherosclerosis of the abdominal aorta and iliac arteries. No aneurysm. Lymph nodes: No enlarged lymph nodes. IMPRESSION: 1. Punctate nonobstructing stone in the left kidney lower pole. 2. Colonic diverticulosis. 3. Mild to moderate atherosclerosis of the abdominal aorta and iliac arteries. 4. Degenerative spondylosis of the lumbar spine. Electronically signed by: Chandra Cai On 08/30/2018 19:55:51 PM
[2018-08-30] MEDS ORDERED: KETAMINE IV ONE (20:00)
[2018-08-30] MEDS ORDERED: NACL IV ONE (20:00)
[2018-08-30] MEDS ORDERED: DILUENT IV ONE (20:00)
[2018-08-30] MEDS ORDERED: KETAMINE HCL 200 MG/20 ML VIAL IM ONE (20:15)
[2018-08-30] MEDS ORDERED: KETAMINE INJ 500 MG/5 ML VIAL IM ONE (20:15)
[2018-08-30] MEDS ORDERED: PROMETHAZINE INJ 25 MG/ML VIAL (J2550) IV PRN (21:45)
[2018-08-30 23:10] VITALS: BP 139/102
[2018-08-31] MEDS: ONDANSETRON 4MG/2ML VIAL (J2405) IV PRN ×2 (00:10→05:04)
[2018-08-31] MEDS: PANTOPRAZOLE 40MG INJ (PROTONIX) (C9113) IV SCH ×2 (00:10→09:00)
[2018-08-31] MEDS: NS 1,000 ML IV SCH ×2 (00:11→10:09)
[2018-08-31] MEDS: HEPARIN SOD (PORCINE) 5000 UNITS/ML VIAL SC SCH ×3 (00:11→14:00)
[2018-08-31] MEDS: MORPHINE 4 MG/ML 1ML VIAL/SYRINGE (J2270) IV PRN ×3 (00:12→10:56)
--- NOTE | 2018-08-31 04:50 | HPEPDOC ---
General Date of Admission Aug 30, 2018 at 21:32 Chief Complaint The patient is a 48-year-old male admitted with a reason for visit of Nausea & Vomiting. History of Present Illness 48-year-old male with past medical history of chronic pancreatitis, pancreatic divisum s/p ERCP with stent placement in 2007, and recurrent intractable nausea/vomiting with associated abdominal pain. The patient has been admitted here 3 times in the last 2 months for complaints of the same. Of note, it appears that the patient has had 5 CT's of the abdomen/pelvis over the last 5 months. He was evaluated by GI and had an EGD done which revealed gastritis in June of 2018. At this time, the patient returns with complaints similar to that of the past. He states that he has been having four nonbloody episodes of vomitus daily over the last several days. In addition, the patient states that he has been having nonspecific abdominal pain and cramping during this time. He notes that he has been passing bowel movements. He denies any complaints of fevers, chills, chest pain, palpitations, lightheadedness, dizziness, sick contacts, recent travel, or ingestion of any foreign foods. Of note, the patient admits to daily marijuana use which he states has been more prevalent over the last several weeks. Home Medications No Active Prescriptions or Reported Meds Allergies Coded Allergies: ketorolac (Verified Adverse Reaction, Mild, NAUSEA, 08/30/18) Past Medical History Medical History As noted in HPI Surgical History 1. ERCP with pancreatic shunt. 2. Sphincterotomy with ERCP in 2007. 3. EGD and colonoscopy in 2014. 4. Another EGD in 2018. Social History * Smoker: current smoker (1 ppd of tobacco) Alcohol: Denies Drugs: marijuana (daily use) Review of Systems Other systems 10 point review of systems negative unless otherwise specified in HPI. Physical Examination General Exam: Positive: Alert, Cooperative, Mild Distress (2/2 nausea/vomiting) ENT Exam: Positive: Atraumatic; Negative: Mucous membr. moist/pink (dry mucous membranes) Neck Exam: Negative: JVD Chest Exam: Positive: Clear to auscultation, Normal air movement Heart Exam: Positive: Rate Normal, Normal S1, Normal S2 Abdomen Exam: Positive: Soft, Tenderness (mild tenderness to deep palpation in the lower abdominal quadrants. No rebound tenderness, guarding, or rigidity noted.) Extremity Exam: Negative: Tenderness, Swelling Psych Exam: Positive: Oriented x 3 Vital Signs Vital Signs Date Time Temp Pulse Resp B/P (MAP) Pulse Ox O2 Delivery O2 Flow Rate FiO2 08/31/18 04:36 18 08/30/18 23:10 98.9 80 139/102 (114) 99 08/30/18 22:42 Room Air Laboratory Data Labs 24H Laboratory Tests 2 08/30/18 17:47: Immature Granulocyte % (Auto) 0.5, White Blood Count 15.2H, Red Blood Count 6.85H, Hemoglobin 20.5*H, Hematocrit 60.1H, Mean Corpuscular Volume 87.7, Mean Corpuscular Hemoglobin 29.9, Mean Corpuscular Hemoglobin Concent 0.0L, Red Cell Distribution Width 13.5, Platelet Count 266, Neutrophils (%) (Auto) 84.4H, Ly mphocytes (%) (Auto) 10.1L, Monocytes (%) (Auto) 4.5, Eosinophils (%) (Auto) 0.1, Basophils (%) (Auto) 0.4, Neutrophils # (Auto) 12.9H, Lymphocytes # (Auto) 1.5, Monocytes # (Auto) 0.7, Eosinophils # (Auto) 0.0, Basophils # (Auto) 0.1, Nucleated Red Blood Cells % (auto) 0.0, Anion Gap 10, Glomerular Filtration Rate 45.2L, Lactic Acid Level 3.5*H, Calcium Level 11.1H, Aspartate Amino Transf (AST/SGOT) 12, Alanine Aminotransferase (ALT/SGPT) 17, Alkaline Phosphatase 140H, Total Bilirubin 0.9, Direct Bilirubin 0.1, Total Creatine Kinase 66, Creatine Kinase MB < 1.0, Creatine Kinase MB Relative Index 1.51, Troponin I < 0.02, Total Protein 10.0H, Albumin 5.2, Albumin/Globulin Ratio 1.08, Lipase 133, Ethyl Alcohol Level 0.010 08/30/18 23:03: Lactic Acid Followup at 4 Hours 1.5 CBC/BMP Laboratory Tests 08/30/18 17:47 Red Blood Count 6.85 H, Mean Corpuscular Volume 87.7, Mean Corpuscular Hemoglobin 29.9, Mean Corpuscular Hemoglobin Concent 0.0 L, Red Cell Distribution Width 13.5, Neutrophils (%) (Auto) 84.4 H, Lymphocytes (%) (Auto) 10.1 L, Monocytes (%) (Auto) 4.5, Eosinophils (%) (Auto) 0.1, Basophils (%) (Auto) 0.4, Neutrophils # (Auto) 12.9 H, Lymphocytes # (Auto) 1.5, Monocytes # (Auto) 0.7, Eosinophils # (Auto) 0.0, Basophils # (Auto) 0.1 Plan / VTE VTE Prophylaxis Ordered?: Yes Plan Plan Intractable Nausea and Vomiting possibly 2/[address] Abd/Pel with no acute findings IVF Hydration ordered Antiemetic and Analgesic therapy ordered NPO, Protonix IV BID for Hx of Gastritis We will cont to monitor and provide supportive treatment Acute Kidney Injury 2/2 Above IVF Hydration ordered Repeat BMP in the AM Lactic Acidosis 2/2 Above IVF Hydration ordered Leukocytosis 2/2 Above Marijuana Use Counseled at length about cessation and possible relation to cyclical vomiting Hx of chronic pancreatitis, pancreatic divisum s/p ERCP with Sphincterotomy in 2007 Lipase wnl, CT abd/pel with no pancreatic inflammation, clinical w/o signs of pancreatitis DVT Prophylaxis Heparin THOM MURRAY MD Aug 31, 2018 04:50
[2018-08-31 06:00] VITALS: BP 110/61
[2018-08-31 06:08] LABS: HEMATOCRIT 45.1 % (42.0-52.0); MEAN CORPUSCULAR HEMOGLOBIN 29.5 pg (27.0-33.0); MEAN CORPUSCULAR VOLUME 88.8 fl (80.0-96.0); PLATELET COUNT, AUTOMATED 179 10^3/uL (150-450); RED BLOOD COUNT 5.08 10^6/uL (4.30-6.10)
[2018-08-31 06:39] LABS: ALBUMIN 3.6 GM/DL (3.2-5.2); ALT/SGPT 11 U/L (12-78); BILIRUBIN,TOTAL 0.6 MG/DL (0.2-1.0); BLOOD UREA NITROGEN 16 MG/DL (7-18); CALCIUM LEVEL 8.2 MG/DL (8.5-10.1); CARBON DIOXIDE LEVEL 24 MEQ/L (21-32); CHLORIDE LEVEL 106 MEQ/L (98-107); CREATININE FOR GFR 0.98 MG/DL (0.70-1.30); GLOMERULAR FILTRATION RATE > 60.0 (>60); GLUCOSE, FASTING 86 MG/DL (70-100); MAGNESIUM LEVEL 1.7 MG/DL (1.8-2.4); POTASSIUM SERUM 3.6 MEQ/L (3.5-5.1); SODIUM LEVEL 138 MEQ/L (136-145); TOTAL PROTEIN 6.6 GM/DL (6.4-8.2)
[2018-08-31 14:00] VITALS: BP 127/71
[2018-08-31] MEDS ORDERED: DICY20TA11 PO (15:13)
[2018-08-31] MEDS ORDERED: PROC5TA PO (15:13)
[2018-08-31] MEDS ORDERED: FAMO40TA3 PO (15:13)
[2018-09-01 07:02] LABS: ETHYL ALCOHOL (ETHANOL) < 0.003 % (0.000-0.010)
--- NOTE | 2018-09-01 11:43 | DSES ---
DATE OF ADMISSION: 08/30/2018 DATE OF DISCHARGE: 08/31/2018 DIAGNOSES: 1. Intractable nausea and vomiting. 2. Chronic abdominal pain, possible chronic pancreatitis. BRIEF HISTORY AND PHYSICAL: This gentleman with history of chronic abdominal pain presented to the emergency room with intractable nausea, vomiting and abdominal pain. He has had multiple emergency room (ER) visits and observation admissions during the last 10 months. He recently had an esophagogastroduodenoscopy (EGD) which showed some gastritis. He had not been taking any of the medications that he was previously prescribed because he felt they made him feel worse or he had trouble getting them down. He is not having diarrhea or blood in his stool. His admission examination showed that he had mild tenderness to deep palpation in the lower abdomen. His lungs were clear. His heart had a regular rhythm without any murmur, click or gallop. Laboratory studies on admission revealed hemoglobin was 20.5 and subsequently 15.0. His white count was 15,200 and subsequently 14,000. Lipase was 133. Troponin was less than 0.02. Lactic acid was 3.5 and then 1.5, BUN was 14 and then 16, creatinine 1.7 to 0.98. Magnesium level was low at 1.7. He had an abdominal and pelvis CT which was interpreted as showing a nonobstructing stone in the left lower pole of the kidney, diverticulosis, mild to moderate arteriosclerosis of abdominal aorta, and degenerative spondylosis of the lumbar spine. The liver, gallbladder, bile ducts and pancreas were felt to be unremarkable. HOSPITAL COURSE: The patient was evaluated in the emergency room and received IV fluids, Zofran, some IV morphine and IV Protonix. He was admitted to the floor and did feel better. He felt by the following afternoon that he was back to where his baseline was. I got the following history from the patient. The patient used to drink a lot and stopped about 12 years ago because he was told that his drinking had caused his chronic abdominal pain which was described potentially as having been due to chronic pancreatitis. He did have an ERCP with a pancreatic duct stent placed in 2007 or 2008, but apparently because of vomiting soon afterwards the stent dislodged. Apparently, he his bile duct and his pancreatic duct were felt to be separate and had not fused. The patient refused to consider having another stent placed. His last contact with the office who did that workup and put the stent in was 7 years ago. At this time, he probably has at least 2-3 out of 10 pain every day. He has nausea that comes and goes unpredictably. Sometimes, just taking his pills makes him nauseated. He has learned to avoid greasy, spicy and non bland sort of foods.. He is not convinced that any medication that he has been on has been truly helpful on a regular basis. 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 I indicated to him that the chief engineering division still might have something to offer him and we may need to refer him to another chief engineering division who is more used to dealing with chronic abdominal pains and he may need to go to a pain clinic. However, I felt that he should have something like an H2 blanca to take an a daily basis as an acid continuous improvement consultant, it might be better tolerated than proton pump inhibitors (PPIs). I also recommended that he have something that he takes p.r.n. for nausea and vomiting and I recommended Compazine for him. I also recommended dicyclomine or Bentyl 20 mg four times a day p.r.n. for abdominal pain or spasm. Again, this is p.r.n. and he has taken this before. I recommended that he follow up with Dr. Lacy and I will speak to her as well as with Dr. Vann to see if they have any additional recommendations for him. ROGER
--- NOTE | 2018-09-02 01:05 | ECGEPIP ---
Stationary ECG Study [facility] - ED Test Date: 2018-08-30 Pat Name: NAV JANE Department: Room: - Gender: M Lang Interpreter: : 1970 Requested By: BISHOP Brownlee Order Number: [id number] Reading MD: Herbie Valero Measurements Intervals [place] Rate: 56 P: [place]: 0 QRS: 97 QRSD: 105 T: 70 QT: 372 QTc: 360 Interpretive Statements SINUS BRADYCARDIA WITH SINUS ARRHYTHMIA BORDERLINE RIGHT AXIS DEVIATION Electronically Signed On 09-02-2018 1:05:04 EDT by Herbie Valero
== END 2018-08-31 16:15 | disposition home or self-care (01) | DRG 249 ==
LOC: EDBD 16:30 → M ED 16:30 → M ED INP 21:32 → M MS5PR 23:10
PROVIDERS: ADMIT Internal Medicine; ATTEND Family Medicine
DX: R11.2 Nausea with vomiting, unspecified (principal); N17.9 Acute kidney failure, unspecified; E87.2 Acidosis; D72.829 Elevated white blood cell count, unspecified; F12.10 Cannabis abuse, uncomplicated; F17.200 Nicotine dependence, unspecified, uncomplicated; Z88.8 Allergy status to other drugs, medicaments and biological substances

== ENCOUNTER 2018-09-11 01:50 | Emergency (ER) | payer OTHER, SELFPAY ==
[~2018-09-11] VITALS: Ht 172.7 cm; Wt 61.4 kg
[~2018-09-11 01:50] MED LIST changes: +DICY20TA11 PO; +FAMO40TA3 PO; +PROC5TA PO; -TRAZ-160 PO; +TRAZ-252 PO
[2018-09-11] MEDS ORDERED: PROT1TAB2 PO (02:04)
[2018-09-11] MEDS ORDERED: AMIT25TA PO (02:04)
[2018-09-11] MEDS ORDERED: ZOFR4TAB16 PO (02:04)
[2018-09-11 02:16] LABS: BASO # 0.1 10^3/uL (0.0-0.2); BASO % 0.5 % (0.0-1.0); EOS # 0.1 10^3/uL (0.0-0.50); EOS % 0.8 % (0.0-3.0); HEMATOCRIT 52.1 % (42.0-52.0); HEMOGLOBIN 18.5 g/dl (13.5-17.5); LYMPH # 2.3 10^3/uL (1.5-4.5); LYMPH % 19.5 % (24.0-44.0); MEAN CORPUSCULAR HGB CONC 35.5 g/dl (32.0-36.5); MEAN CORPUSCULAR VOLUME 84.6 fl (80.0-96.0); MONO # 0.9 10^3/uL (0.0-0.8); MONO % 7.5 % (0.0-5.0); NEUTROPHILS # 8.5 10^3/uL (1.8-7.7); NEUTROPHILS % 71.4 % (36.0-66.0); PLATELET COUNT, AUTOMATED 195 10^3/uL (150-450); RED BLOOD COUNT 6.16 10^6/uL (4.30-6.10); WHITE BLOOD COUNT 11.9 10^3/uL (4.0-10.0)
[2018-09-11 02:33] LABS: ALBUMIN 4.3 GM/DL (3.2-5.2); ALT/SGPT 10 U/L (12-78); BILIRUBIN,DIRECT 0.2 MG/DL (0.0-0.2); BILIRUBIN,TOTAL 1.2 MG/DL (0.2-1.0); BLOOD UREA NITROGEN 17 MG/DL (7-18); CALCIUM LEVEL 9.2 MG/DL (8.5-10.1); CARBON DIOXIDE LEVEL 29 MEQ/L (21-32); CHLORIDE LEVEL 97 MEQ/L (98-107); CREATININE FOR GFR 1.19 MG/DL (0.70-1.30); GLOMERULAR FILTRATION RATE > 60.0 (>60); GLUCOSE, FASTING 104 MG/DL (70-100); LIPASE 250 U/L (73-393); POTASSIUM SERUM 3.3 MEQ/L (3.5-5.1); SODIUM LEVEL 135 MEQ/L (136-145); TOTAL PROTEIN 7.8 GM/DL (6.4-8.2)
[2018-09-11] MEDS ORDERED: diphenhydrAMINE INJ 50MG/ML VIAL (J1200) IV ONE (03:15)
[2018-09-11] MEDS ORDERED: DILUENT IV ONE (03:15)
[2018-09-11] MEDS ORDERED: KETAMINE IV ONE (03:15)
[2018-09-11] MEDS ORDERED: NACL IV ONE (03:15)
[2018-09-11] MEDS ORDERED: NS 1,000 ML IV ONE (03:15)
[2018-09-11] MEDS ORDERED: METOCLOPRAMIDE INJ 10MG/2ML VIAL (J2765) IV ONE (03:15)
[2018-09-11 05:39] VITALS: BP 118/86
== END 2018-09-11 05:40 | disposition home or self-care (01) ==
LOC: EDBD 01:50 → M ED 01:50
DX: R10.9 Unspecified abdominal pain (principal); R11.2 Nausea with vomiting, unspecified; G89.29 Other chronic pain; Z76.5 Malingerer [conscious simulation]; Z79.899 Other long term (current) drug therapy; Z88.8 Allergy status to other drugs, medicaments and biological substances; F17.210 Nicotine dependence, cigarettes, uncomplicated
CPT/HCPCS: 80048; 80076; 83690; 85025; 93041; 96365; 96375; 99285; J1200; J2765

== ENCOUNTER 2018-10-13 18:20 | Emergency (ER) | payer OTHER, SELFPAY ==
[~2018-10-13] VITALS: Ht 172.7 cm; Wt 62.7 kg
[2018-10-13 20:05] LABS: BASO % 0.4 % (0.0-1.0); EOS % 0.1 % (0.0-3.0); HEMATOCRIT 53.8 % (42.0-52.0); HEMOGLOBIN 18.6 g/dl (13.5-17.5); LYMPH # 1.5 10^3/uL (1.5-4.5); LYMPH % 14.3 % (24.0-44.0); MEAN CORPUSCULAR HEMOGLOBIN 29.7 pg (27.0-33.0); MEAN CORPUSCULAR HGB CONC 34.6 g/dl (32.0-36.5); MEAN CORPUSCULAR VOLUME 85.9 fl (80.0-96.0); MONO # 0.9 10^3/uL (0.0-0.8); MONO % 8.5 % (0.0-5.0); NEUTROPHILS # 8.2 10^3/uL (1.8-7.7); NEUTROPHILS % 76.4 % (36.0-66.0); PLATELET COUNT, AUTOMATED 249 10^3/uL (150-450); RED BLOOD COUNT 6.26 10^6/uL (4.30-6.10); WHITE BLOOD COUNT 10.8 10^3/uL (4.0-10.0)
[2018-10-13] MEDS ORDERED: PANTOPRAZOLE 40MG INJ (PROTONIX) (C9113) IV ONE (20:30)
[2018-10-13] MEDS ORDERED: MORPHINE 4 MG/ML 1ML VIAL/SYRINGE (J2270) IV ONE (20:30)
[2018-10-13] MEDS ORDERED: ONDANSETRON 4MG/2ML VIAL (J2405) IV ONE (20:30)
[2018-10-13] MEDS ORDERED: NS 1,000 ML IV SCH (20:30)
[2018-10-13] MEDS ORDERED: NS 1,000 ML IV ONE (20:30)
[2018-10-13 20:32] LABS: ALBUMIN 4.5 GM/DL (3.2-5.2); BILIRUBIN,DIRECT 0.1 MG/DL (0.0-0.2); BILIRUBIN,TOTAL 0.6 MG/DL (0.2-1.0); TOTAL PROTEIN 8.8 GM/DL (6.4-8.2)
[2018-10-13] MEDS ORDERED: ZOFR4TAB16 PO (22:26)
[2018-10-13] MEDS ORDERED: DICY20TA11 PO (22:26)
[2018-10-13 22:30] VITALS: BP 131/85
== END 2018-10-13 22:57 | disposition home or self-care (01) ==
LOC: M ED 18:20
DX: K29.70 Gastritis, unspecified, without bleeding (principal); I10 Essential (primary) hypertension; Z87.442 Personal history of urinary calculi; J44.9 Chronic obstructive pulmonary disease, unspecified; R11.0 Nausea; Z72.0 Tobacco use; Z79.899 Other long term (current) drug therapy; Z88.8 Allergy status to other drugs, medicaments and biological substances
CPT/HCPCS: 80076; 82150; 83605; 83690; 85025; 87040; 93041; 96361; 96374; 96375; 99285; C9113; J2270; J2405

== ENCOUNTER 2018-10-14 23:45 | Emergency (ER) | payer SELFPAY ==
[~2018-10-14] VITALS: Ht 170.2 cm; Wt 61.4 kg
[2018-10-14 23:56] VITALS: BP 130/92
[2018-10-15] MEDS ORDERED: CARA1TAB6 PO (00:01)
== END 2018-10-15 01:26 | disposition left against medical advice (07) ==
LOC: M ED 23:45
DX: R10.9 Unspecified abdominal pain (principal); Z53.21 Procedure and treatment not carried out due to patient leaving prior to being seen by health care provider

== ENCOUNTER 2018-10-26 20:00 | Emergency (ER) | payer OTHER, SELFPAY ==
[~2018-10-26] VITALS: Ht 172.7 cm; Wt 61.4 kg
[2018-10-26] MEDS ORDERED: ZOFR4TAB16 PO (20:12)
[2018-10-26] MEDS ORDERED: NS 1,000 ML IV ONE (20:45)
[2018-10-26] MEDS ORDERED: NS IV ONE ×2 (20:45→22:15)
[2018-10-26] MEDS ORDERED: METOCLOPRAMIDE INJ 10MG/2ML VIAL (J2765) IV ONE (20:45)
[2018-10-26] MEDS ORDERED: [UNRECOGNIZED DRUG - OTHER] IV ONE (20:45)
[2018-10-26] MEDS ORDERED: LIDOCAINE 2% IV ONE (20:45)
[2018-10-26 21:14] LABS: BASO # 0.1 10^3/uL (0.0-0.2); BASO % 0.4 % (0.0-1.0); EOS % 0.3 % (0.0-3.0); HEMOGLOBIN 19.6 g/dl (13.5-17.5); LYMPH # 1.9 10^3/uL (1.5-4.5); LYMPH % 13.8 % (24.0-44.0); MEAN CORPUSCULAR HEMOGLOBIN 30.2 pg (27.0-33.0); MEAN CORPUSCULAR VOLUME 86.3 fl (80.0-96.0); MONO % 7.3 % (0.0-5.0); NEUTROPHILS # 10.9 10^3/uL (1.8-7.7); NEUTROPHILS % 77.8 % (36.0-66.0); PLATELET COUNT, AUTOMATED 272 10^3/uL (150-450); RED BLOOD COUNT 6.49 10^6/uL (4.30-6.10)
[2018-10-26 21:45] LABS: ALBUMIN 4.7 GM/DL (3.2-5.2); ALT/SGPT 17 U/L (12-78); BILIRUBIN,DIRECT 0.1 MG/DL (0.0-0.2); BILIRUBIN,TOTAL 0.7 MG/DL (0.2-1.0); BLOOD UREA NITROGEN 23 MG/DL (7-18); CALCIUM LEVEL 10.3 MG/DL (8.5-10.1); CARBON DIOXIDE LEVEL 24 MEQ/L (21-32); CHLORIDE LEVEL 99 MEQ/L (98-107); CREATININE FOR GFR 1.78 MG/DL (0.70-1.30); ETHYL ALCOHOL (ETHANOL) < 0.003 % (0.000-0.010); GLOMERULAR FILTRATION RATE 43.5 (>60); GLUCOSE, FASTING 117 MG/DL (70-100); LIPASE 95 U/L (73-393); POTASSIUM SERUM 3.6 MEQ/L (3.5-5.1); SODIUM LEVEL 135 MEQ/L (136-145); TOTAL PROTEIN 9.1 GM/DL (6.4-8.2)
[2018-10-26] MEDS ORDERED: DILUENT IV ONE (22:15)
[2018-10-26] MEDS ORDERED: MORPHINE 4 MG/ML 1ML VIAL/SYRINGE (J2270) IV PRN (23:15)
--- NOTE | 2018-10-26 23:57 | REPVR ---
EXAM: US Abdomen Limited, Right Upper Quadrant EXAM DATE/TIME: 10/26/2018 10:14 PM CLINICAL HISTORY: 48 years old, male; Abdominal pain; Localized; Right upper quadrant (ruq); Additional info: Ruq abd pain TECHNIQUE: Imaging protocol: Real-time ultrasound of the abdomen with image documentation. Examination was focused on the right upper quadrant. COMPARISON: ABD COMPLETE US 07/10/2018 8:11 AM FINDINGS: Peritoneal cavity: No free fluid is seen within the visualized right upper quadrant. Pancreas: Pancreatic echotexture and echogenicity is within normal limits. No pancreatic ductal dilation. No peripancreatic fluid. Liver: The liver is not enlarged. Hepatic echotexture is slightly heterogeneous. No intrahepatic biliary ductal dilation. Gallbladder: The gallbladder measures approximately 7.1 x 2.5 cm. There is no pericholecystic fluid. The technologist does not report a positive sonographic Burnett sign. Gallbladder wall thickness is within normal limits at 1.8 mm. No shadowing gallstones are seen. Small amount of echogenic reflecting mobile debris within the gallbladder. The common bile duct measures 5.4 mm at the carly hepatis. Right kidney: The right kidney measures 12.5 x 4.5 cm. Right renal echotexture is slightly heterogeneous and echogenicity is slightly elevated, isoechoic to the adjacent liver. This could be correlated for possibility of mild medical renal disease. No shadowing right renal calculus. No hydronephrosis. Color flow is seen at the right renal hilum. IMPRESSION: No free fluid. There is some echogenic debris within the gallbladder but no other sonographic findings to suggest acute cholecystitis. Slight elevated echogenicity of the right kidney could be correlated with renal function. Findings discussed above in detail. Electronically signed by: Rick Chavarria On 10/26/2018 23:57:48 PM
[2018-10-27 01:36] LABS: APPEARANCE, URINE CLOUDY (CLEAR); BACTERIA, URINE AUTO NEGATIVE (NEGATIVE); BILIRUBIN, URINE AUTO NEGATIVE (NEGATIVE); BLOOD, URINE BLOOD NEGATIVE (NEGATIVE); COLOR, URINE AMBER (YELLOW); GLUCOSE, URINE (UA) AUTO NEGATIVE (NEGATIVE); KETONE, URINE AUTO TRACE mg/dL (NEGATIVE); LEUKOCYTE ESTERASE, URINE AUTO TRACE (NEGATIVE); MUCUS, URINE LARGE (NEGATIVE); NITRITE, URINE AUTO NEGATIVE (NEGATIVE); PROTEIN, URINE AUTO 2+ mg/dL (NEGATIVE); RBC, URINE AUTO 3 /HPF (0-3); SPECIFIC GRAVITY URINE AUTO 1.027 (1.002-1.035); SQUAMOUS EPITHELIAL CELL UR AU 3 /HPF (0-6); WBC, URINE AUTO 15 /HPF (0-3)
[2018-10-27 01:47] VITALS: BP 126/81
== END 2018-10-27 01:57 | disposition home or self-care (01) ==
LOC: M ED 20:00
DX: E86.0 Dehydration (principal); G89.29 Other chronic pain; R10.9 Unspecified abdominal pain; Z72.0 Tobacco use; Z79.899 Other long term (current) drug therapy; Z88.8 Allergy status to other drugs, medicaments and biological substances
CPT/HCPCS: 76705; 80048; 80076; 81001; 83690; 85025; 93041; 96361; 96374; 96375; 99285; G0480; J2270; J2765

== ENCOUNTER 2018-11-10 07:59 | Emergency (ER) | payer OTHER ==
[~2018-11-10] VITALS: Ht 172.7 cm; Wt 59.1 kg
[2018-11-10] MEDS ORDERED: NS 1,000 ML IV SCH (08:06)
[2018-11-10] MEDS ORDERED: GABA-843 PO (08:06)
[2018-11-10] MEDS ORDERED: ONDANSETRON 4MG/2ML VIAL (J2405) IV ONE ×2 (08:15→11:00)
[2018-11-10] MEDS ORDERED: MORPHINE 4 MG/ML 1ML VIAL/SYRINGE (J2270) IV ONE ×2 (08:15→09:15)
[2018-11-10] MEDS ORDERED: PANTOPRAZOLE 40MG INJ (PROTONIX) (C9113) IV ONE (08:15)
[2018-11-10 08:30] LABS: BASO # 0.1 10^3/uL (0.0-0.2); BASO % 0.6 % (0.0-1.0); EOS # 0.1 10^3/uL (0.0-0.50); EOS % 0.6 % (0.0-3.0); HEMOGLOBIN 18.5 g/dl (13.5-17.5); LYMPH # 2.2 10^3/uL (1.5-4.5); MEAN CORPUSCULAR HEMOGLOBIN 30.6 pg (27.0-33.0); MEAN CORPUSCULAR HGB CONC 34.9 g/dl (32.0-36.5); MEAN CORPUSCULAR VOLUME 87.6 fl (80.0-96.0); MONO # 0.8 10^3/uL (0.0-0.8); MONO % 6.9 % (0.0-5.0); NEUTROPHILS # 7.8 10^3/uL (1.8-7.7); NEUTROPHILS % 71.6 % (36.0-66.0); PLATELET COUNT, AUTOMATED 241 10^3/uL (150-450); RED BLOOD COUNT 6.05 10^6/uL (4.30-6.10); WHITE BLOOD COUNT 10.8 10^3/uL (4.0-10.0)
[2018-11-10 08:58] LABS: ALBUMIN 4.5 GM/DL (3.2-5.2); ALT/SGPT 14 U/L (12-78); BILIRUBIN,DIRECT 0.2 MG/DL (0.0-0.2); BILIRUBIN,TOTAL 0.7 MG/DL (0.2-1.0); BLOOD UREA NITROGEN 23 MG/DL (7-18); CALCIUM LEVEL 10.3 MG/DL (8.5-10.1); CARBON DIOXIDE LEVEL 26 MEQ/L (21-32); CHLORIDE LEVEL 102 MEQ/L (98-107); CREATININE FOR GFR 1.14 MG/DL (0.70-1.30); GLOMERULAR FILTRATION RATE > 60.0 (>60); GLUCOSE, FASTING 148 MG/DL (70-100); LIPASE 106 U/L (73-393); POTASSIUM SERUM 3.7 MEQ/L (3.5-5.1); SODIUM LEVEL 138 MEQ/L (136-145); TOTAL PROTEIN 8.3 GM/DL (6.4-8.2)
[2018-11-10] MEDS ORDERED: GI COCKTAIL 50ML BTL(HYOSCYAMINE/MAALOX/LIDOCAINE VISCOUS)(1:3:1) PO ONE (09:15)
--- NOTE | 2018-11-10 10:38 | REP ---
Clinical: Acute epigastric pain. Technique: Real time marsh scale ultrasound examination using curved array transducer. Findings: Liver and pancreas are normal in contour, size, echogenicity without focal hepatic or pancreatic lesion identified. Gallbladder is essentially normal and without gallstones, wall thickening, or pericholecystic fluid. A small 2 mm echogenic focus along the posterior wall without shadowing may represent small benign polyp. No biliary ductal dilatation is appreciated and the common bile duct measures 4.2 mm diameter. Right kidney is normal in reniform shape without hydronephrosis and measures 13.2 x 4.9 x 5.5 cm. No ascites. Impression: Essentially normal nonacute findings. Possible 2 mm gallbladder polyp. Electronically Signed by Bib Ziegler MD 11/10/2018 10:30 A
[2018-11-10] MEDS ORDERED: KETOROLAC 30 MG/ML VIAL (J1885) IV ONE (11:00)
[2018-11-10 11:20] VITALS: BP 105/60
--- NOTE | 2018-11-10 14:02 | ED PDOC ---
Post-Departure Follow-Up pierre lawson faxed formal report of us for fu Cristal Abarca MD Nov 10, 2018 14:02
== END 2018-11-10 11:37 | disposition home or self-care (01) ==
LOC: M ED 07:59 → EDBD 07:59 → M ED 11:37
DX: R10.13 Epigastric pain (principal); R91.1 Solitary pulmonary nodule; K29.70 Gastritis, unspecified, without bleeding; K86.1 Other chronic pancreatitis; F17.210 Nicotine dependence, cigarettes, uncomplicated; F10.10 Alcohol abuse, uncomplicated; Z79.891 Long term (current) use of opiate analgesic; Z79.899 Other long term (current) drug therapy; Z88.6 Allergy status to analgesic agent
CPT/HCPCS: 76705; 80048; 80076; 83690; 85025; 96361; 96374; 96375; 96376; 99284; C9113; J1885; J2270; J2405

== ENCOUNTER 2018-12-03 22:12 | Observation (INO) | payer MEDICAID, OTHER, SELFPAY ==
[~2018-12-03] VITALS: Ht 172.7 cm; Wt 54.5 kg
[~2018-12-03 22:12] MED LIST changes: +GABA-843 PO
[2018-12-03] MEDS ORDERED: NS 1,000 ML IV ONE (22:30)
[2018-12-03] MEDS ORDERED: NS IV ONE (22:45)
[2018-12-03] MEDS ORDERED: LIDOCAINE 2% IV ONE (22:45)
[2018-12-03] MEDS ORDERED: [UNRECOGNIZED DRUG - OTHER] IV ONE (22:45)
[2018-12-03] MEDS ORDERED: METOCLOPRAMIDE INJ 10MG/2ML VIAL (J2765) IV ONE (22:45)
[2018-12-03 22:46] LABS: BASO # 0.1 10^3/uL (0.0-0.2); BASO % 0.5 % (0.0-1.0); EOS % 0.1 % (0.0-3.0); HEMATOCRIT 55.7 % (42.0-52.0); HEMOGLOBIN 19.4 g/dl (13.5-17.5); LYMPH # 1.7 10^3/uL (1.5-4.5); LYMPH % 11.6 % (24.0-44.0); MEAN CORPUSCULAR HEMOGLOBIN 30.2 pg (27.0-33.0); MEAN CORPUSCULAR HGB CONC 34.8 g/dl (32.0-36.5); MEAN CORPUSCULAR VOLUME 86.8 fl (80.0-96.0); MONO # 0.9 10^3/uL (0.0-0.8); MONO % 6.4 % (0.0-5.0); NEUTROPHILS # 11.6 10^3/uL (1.8-7.7); NEUTROPHILS % 81.1 % (36.0-66.0); PLATELET COUNT, AUTOMATED 283 10^3/uL (150-450); RED BLOOD COUNT 6.42 10^6/uL (4.30-6.10); WHITE BLOOD COUNT 14.3 10^3/uL (4.0-10.0)
[2018-12-03 22:53] LABS: ALBUMIN 5.2 GM/DL (3.2-5.2); BILIRUBIN,DIRECT 0.2 MG/DL (0.0-0.2); BILIRUBIN,TOTAL 0.7 MG/DL (0.2-1.0); CALCIUM LEVEL 10.9 MG/DL (8.5-10.1); CREATININE FOR GFR 1.76 MG/DL (0.70-1.30); MAGNESIUM LEVEL 2.8 MG/DL (1.8-2.4); POTASSIUM SERUM 4.1 MEQ/L (3.5-5.1); TOTAL PROTEIN 9.2 GM/DL (6.4-8.2)
[2018-12-03] MEDS ORDERED: ONDANSETRON 4MG/2ML VIAL (J2405) IV ONE (23:45)
[2018-12-04] MEDS ORDERED: GI COCKTAIL 50ML BTL(HYOSCYAMINE/MAALOX/LIDOCAINE VISCOUS)(1:3:1) PO ONE
[2018-12-04] MEDS ORDERED: KETOROLAC 30 MG/ML VIAL (J1885) IV ONE
[2018-12-04] MEDS ORDERED: PROMETHAZINE INJ 25 MG/ML VIAL (J2550) IV ONE (00:30)
[2018-12-04] MEDS ORDERED: ONDANSETRON 4 MG TAB (S0181) PO PRN (02:45)
[2018-12-04 03:46] VITALS: BP 140/88
[2018-12-04 06:00] VITALS: BP 148/98
[2018-12-04 06:10] LABS: HEMATOCRIT 52.1 % (42.0-52.0); HEMOGLOBIN 17.5 g/dl (13.5-17.5); MEAN CORPUSCULAR HEMOGLOBIN 30.6 pg (27.0-33.0); MEAN CORPUSCULAR HGB CONC 33.6 g/dl (32.0-36.5); MEAN CORPUSCULAR VOLUME 91.1 fl (80.0-96.0); PLATELET COUNT, AUTOMATED 224 10^3/uL (150-450); RED BLOOD COUNT 5.72 10^6/uL (4.30-6.10); WHITE BLOOD COUNT 14.3 10^3/uL (4.0-10.0)
[2018-12-04 06:41] LABS: CALCIUM LEVEL 9.3 MG/DL (8.5-10.1); CREATININE FOR GFR 1.63 MG/DL (0.70-1.30); GLOMERULAR FILTRATION RATE 48.1 (>60); MAGNESIUM LEVEL 2.5 MG/DL (1.8-2.4); POTASSIUM SERUM 3.6 MEQ/L (3.5-5.1)
--- NOTE | 2018-12-04 08:59 | IPNPDOC ---
Subjective Date Seen The patient was seen on 12/04/18. Subjective Chief Complaint/HPI abdominal pain, PANKAJ Events since last encounter Presents with chronic abdominal pain, n/v, and PANKAJ. Tolerating clear liquids t his am. Patient has had significant w/u including multiple CT scans and US of gallbladder. Planned HIDA scan 12/11/18. Constitutional: Denies: Chills, Fever, Night Sweats ENT: Denies: Head Aches, Ear Pain, Dysphagia Skin: Denies: Rash, Lesions, Breakdown Pulmonary: Denies: Dyspnea, Cough Cardiovascular: Denies: Chest Pain, Palpitations, Orthopnea, Paroxysmal Noc. Dyspnea, Lt Headedness Gastrointestinal: Reports: Nausea, Vomiting, Abdominal Pain; Denies: Diarrhea, Constipation Genitourinary: Denies: Dysuria, Frequency, Incontinence, Retention Psych: Reports: Mood Normal; Denies: Depression, Memory Issues Objective Physical Examination General Exam: Positive: Alert, No Acute Distress Chest Exam: Positive: Clear to auscultation, Normal air movement Heart Exam: Positive: Rate Normal, Regular Rhythm, Normal S1, Normal S2; Negative: Murmurs, Rubs Abdomen Exam: Positive: Normal bowel sounds, Soft; Negative: Tenderness, Hepatospenomegaly Skin Exam: Positive: Nl turgor and temperature; Negative: Rash, Breakdown Psych Exam: Positive: Mental status NL, Mood NL, Oriented x 3 Assessment /Plan Problems (1) Nausea & vomiting Onset Date: 12/21/2013 Status: Acute Problem Text: 12/05 could not tolerate GES; emperically + meto 10 IV q6H states using THC since ~07/2018 to help c appetite, but has had chronic N/abdominal pain 15Y +; therefore, not cw [facility] (2) Erythrocytosis Status: Chronic Problem Text: c mild leukocytosis 12/2017 EPA 4 c hgb 17.2- favoring PCV-check SABAS, ? ho BMB, if not, plan as outpx (3) Hypercalcemia Status: Chronic Problem Text: other possible cause of abdominal pain 12/03 10.9 check davis (4) Acute kidney injury Onset Date: 01/29/2014 Status: Acute Problem Text: 12/04 normal renal US baseline cr 1.0-1.1 (5) Chronic abdominal pain Status: Acute Problem Text: 12/04/18 MRCP: No gallstones identified and no evidence of choledocholithiasis. No biliary dilatation. No definite stricture of the common bile duct. 07/[address] Kaiser: .mild chronic gastritis, normal SBB Plan/VTE VTE Prophylaxis Ordered?: Yes VS, I&O, 24H, Fishbone Vital Signs/I&O Vital Signs Date Time Temp Pulse Resp B/P (MAP) Pulse Ox O2 Delivery O2 Flow Rate FiO2 12/04/18 06:00 97.9 89 20 148/98 (115) 96 12/04/18 03:38 Room Air I&O- Last 24 Hours up to 6 AM 12/04/18 06:00 Intake Total 2304.4 ml Output Total 0 ml Balance 2304.4 ml Laboratory Data 24H LABS Laboratory Tests 2 12/03/18 22:20: Immature Granulocyte % (Auto) 0.3, White Blood Count 14.3H, Red Blood Count 6.42H, Hemoglobin 19.4H, Hematocrit 55.7H, Mean Corpuscular Volume 86.8, Mean Corpuscular Hemoglobin 30.2, Mean Corpuscular Hemoglobin Concent 34.8, Red Cell Distribution Width 14.0, Platelet Count 283, Neutrophils (%) (Auto) 81.1H, Lymphocytes (%) (Auto) 11.6L, Monocytes (%) (Auto) 6.4H, Eosinophils (%) (Auto) 0.1, Basophils (%) (Auto) 0.5, Neutrophils # (Auto) 11.6H, Lymphocytes # (Auto) 1.7, Monocytes # (Auto) 0.9H, Eosinophils # (Auto) 0.0, Basophils # (Auto) 0.1, Nucleated Red Blood Cells % (auto) 0.0, Anion Gap 12, Glomerular Filtration Rate 44.0L, Calcium Level 10.9H, Magnesium Level 2.8H, Aspartate Amino Transf (AST/SGOT) 14, Alanine Aminotransferase (ALT/SGPT) 18, Alkaline Phosphatase 118H, Total Bilirubin 0.7, Direct Bilirubin 0.2, Total Protein 9.2H, Albumin 5.2, Albumin/Globulin Ratio 1.30, Amylase Level 59, Lipase 94 12/04/18 05:33: Nucleated Red Blood Cells % (auto) 0.0, Anion Gap 8, Glomerular Filtration Rate 48.1L, Calcium Level 9.3, Magnesium Level 2.5H, Blood Urea Nitrogen 31H, Creatinine 1.63H, Sodium Level 142, Potassium Level 3.6, Chloride Level 107, Carbon Dioxide Level 27 CBC/BMP Laboratory Tests 12/03/18 22:20 Red Blood Count 6.42 H, Mean Corpuscular Volume 86.8, Mean Corpuscular Hemoglobin 30.2, Mean Corpuscular Hemoglobin Concent 34.8, Red Cell Distribution Width 14.0, Neutrophils (%) (Auto) 81.1 H, Lymphocytes (%) (Auto) 11.6 L, Monocytes (%) (Auto) 6.4 H, Eosinophils (%) (Auto) 0.1, Basophils (%) (Auto) 0.5, Neutrophils # (Auto) 11.6 H, Lymphocytes # (Auto) 1.7, Monocytes # (Auto) 0.9 H, Eosinophils # (Auto) 0.0, Basophils # (Auto) 0.1 12/04/18 05:33 Red Blood Count 5.72, Mean Corpuscular Volume 91.1, Mean Corpuscular Hemoglobin 30.6, Mean Corpuscular Hemoglobin Concent 33.6, Red Cell Distribution Width 13.5, Calcium Level 9.3 Fifi Villegas [facility] Dec 04, 2018 08:59 Gurpreet Bashir M.D. Dec 04, 2018 18:20
--- NOTE | 2018-12-04 09:35 | HPEPDOC ---
General Date of Admission Dec 03, 2018 at 22:13 Date of Service: Dec 04, 2018 Chief Complaint The patient is a 48-year-old male admitted with a reason for visit of Acute Kidney Injury, Chronic Abdominal Pain. Source: Patient History of Present Illness This is a 48 yo male with ?history of pain med seeking , and chronic pancreatitis who presented to the ed for multiple vomiting episodes of food particles without blood or bile, for the past 3 days. He said he is able to keep liquid down but not solid food. He also complains of epigastric pain for which he said nothing has really helped the pain and he is asking for morphine or dilaudid. He recieved GI cocktail but said the effect was very minimal and short lived. I explained to him the morphine or dilaudid can worsen his n/v and abd pain even, he said that never happened to him with those meds. He also c/o decreased appetite and 10lbs weight loss in 1 week, along with perfused sweating intermittently. He denied fever, chills, chest pain, sob, constipation or diarrhea . ROS all 14 point ros negative except for what s stated in HPI All vital signs, labs and images reviewed Physical exam Gen- NAD, normal body habitus HEENT- normocephalic, atraumatic, PERRLA, EOMI, normal conjunctiva, neck supple, no lymphadenopathy, tongue is dry, dry mucosa Cvs nondisplaced pmi, normal s1, s2 , no murmurs, rubs or gallops, no chest wall tenderness, no edema Resp no cough, LCTAB, no wheezes, rhonchi or crackles Abd normal bs, soft , diffuse abd tenderness - however before and after exam patient did not look like he was in a lot of pain, he was ambulating without any sign or grimace or distress. nondistended, no organomegaly Msk no tenderness, no swelling, no deformity, FROM, no atrophy Neuro no focal deficit , cn2-12 intact, strength 5/5 in all extremities , AOA x3 Psych- cooperative , normal mood Assessment and plan gastroenteritis vs cannabinoid hyperemsis syndrome with sxs of dehydration on exam and labs although patient has hx of chronic pancreatitis , lipase is wnl , so less likely cbc and cmp are hemoconcentrated f/u utox and etoh level patient denied any recent use of etoh, but said he uses marijuana sometimes, when told that marijuana can cause his symptoms, he said it never did prn pain meds PPI ivf not convinced this is bowel obstruction bc patient has not had any bilious episodes Acute renal failure likely due to vomiting and decreased po intake - hypovolemia c/w ivf monitor bmp cld for now, advance diet when tolerable avoid nephrotoxic agents avoid nsaids dvt ppx gi ppx full code, from home , no svc Home Medications Scheduled Gabapentin (Gabapentin) 300 Mg Capsule, 300 MG PO TID, (Reported) Scheduled PRN Ondansetron HCl (Zofran) 4 Mg Tablet, 4 MG PO TID PRN for NAUSEA, (Reported) Allergies Coded Allergies: ketorolac (Verified Adverse Reaction, Mild, NAUSEA, 12/03/18) Past Medical History Medical History chronic pancreatitis Surgical History none Family History Significant Family History: Lung disease, Other (mother had emphesema and father had liver cirrhosis ) Social History * Smoker: Denies Alcohol: Denies Drugs: marijuana Psychosocial History: No pertinent psych hx lives with his A-FIB/CHADSVASC A-FIB History Current/History of A-Fib/PAF?: No Current PO Anticoag Therapy: No Age/Risk Factor Scoring CHADSVASC: CHADSVASC Response (Comments) Value Age Risk Factor Age < 65 years old 0 Gender Risk Factor Male 0 Hx of CHF No 0 Hx of HTN No 0 Hx of Stroke/TIA/or VTE No 0 Hx of Diabetes No 0 Hx of Vascular Disease No 0 Total 0 Treatment Treatment ordered: NONE Reason Anticoagulant not given: Not indicated/[id number] Vital Signs Vital Signs Date Time Temp Pulse Resp B/P (MAP) Pulse Ox O2 Delivery O2 Flow Rate FiO2 12/04/18 02:05 96 18 123/89 (100) 97 Room Air 12/03/18 22:22 96.2 Laboratory Data Labs 24H Laboratory Tests 2 12/03/18 22:20: Immature Granulocyte % (Auto) 0.3, White Blood Count 14.3H, Red Blood Count 6.42H, Hemoglobin 19.4H, Hematocrit 55.7H, Mean Corpuscular Volume 86.8, Mean Corpuscular Hemoglobin 30.2, Mean Corpuscular Hemoglobin Concent 34.8, Red Cell Distribution Width 14.0, Platelet Count 283, Neutrophils (%) (Auto) 81.1H, Lymphocytes (%) (Auto) 11.6L, Monocytes (%) (Auto) 6.4H, Eosinophils (%) (Auto) 0.1, Basophils (%) (Auto) 0.5, Neutrophils # (Auto) 11.6H, Lymphocytes # (Auto) 1.7, Monocytes # (Auto) 0.9H, Eosinophils # (Auto) 0.0, Basophils # (Auto) 0.1, Nucleated Red Blood Cells % (auto) 0.0, Anion Gap 12, Glomerular Filtration Rate 44.0L, Calcium Level 10.9H, Magnesium Level 2.8H, Aspartate Amino Transf (AST/ SGOT) 14, Alanine Aminotransferase (ALT/SGPT) 18, Alkaline Phosphatase 118H, Total Bilirubin 0.7, Direct Bilirubin 0.2, Total Protein 9.2H, Albumin 5.2, Albumin/Globulin Ratio 1.30, Amylase Level 59, Lipase 94 CBC/BMP Laboratory Tests 12/03/18 22:20 Red Blood Count 6.42 H, Mean Corpuscular Volume 86.8, Mean Corpuscular Hemoglobin 30.2, Mean Corpuscular Hemoglobin Concent 34.8, Red Cell Distribution Width 14.0, Neutrophils (%) (Auto) 81.1 H, Lymphocytes (%) (Auto) 11.6 L, Mo nocytes (%) (Auto) 6.4 H, Eosinophils (%) (Auto) 0.1, Basophils (%) (Auto) 0.5, Neutrophils # (Auto) 11.6 H, Lymphocytes # (Auto) 1.7, Monocytes # (Auto) 0.9 H, Eosinophils # (Auto) 0.0, Basophils # (Auto) 0.1 Plan / VTE VTE Prophylaxis Ordered?: Yes LISA MEJIA MD Dec 04, 2018 02:46
[2018-12-04] MEDS: GABAPENTIN 300 MG CAP PO SCH ×3 (10:14→19:56)
[2018-12-04] MEDS: DOCUSATE SODIUM 100 MG CAP PO SCH ×2 (10:14→19:56)
[2018-12-04] MEDS: NS 1,000 ML IV SCH ×2 (10:15→19:56)
[2018-12-04] MEDS: PANTOPRAZOLE 40MG TAB (PROTONIX) PO SCH (10:15)
[2018-12-04] MEDS: ENOXAPARIN 30 MG/0.3 ML SYR (J1650) SC SCH (10:15)
--- NOTE | 2018-12-04 10:58 | REP ---
MRCP: MRCP exam is accomplished utilizing multiple heavily T2-weighted sequences in the axial and coronal planes, with MIP reconstruction images. The gallbladder demonstrates no filling defect. There is no gallbladder wall edema. There is no intrahepatic biliary dilatation. The common hepatic and common bile duct are normal in caliber with no evidence of choledocholithiasis. Maximum diameter is 4 mm. There is no definite stricture. Pancreatic duct is normal in caliber. Tiny subcentimeter cyst is seen in the left lobe of the liver. No other significant abnormalities are seen in the visualized upper abdomen. IMPRESSION: No gallstones identified and no evidence of choledocholithiasis. No biliary dilatation. No definite stricture of the common bile duct. Electronically Signed by Scotty Jones MD 12/04/2018 12:45 P
[2018-12-04] MEDS ORDERED: traMADol 50 MG TAB PO ONE (11:00)
--- NOTE | 2018-12-04 13:11 | REP ---
RENAL AND BLADDER ULTRASOUND: Real-time sonographic evaluation of kidneys performed and demonstrates both kidneys to be normal in size and echotexture, right kidney measuring 12.9 x 5.7 x 4.2 cm and left kidney 12.2 x 4.1 x 4.8 cm. There is no renal mass, hydronephrosis or nephrolithiasis. Urinary bladder is very mildly distended and grossly unremarkable. IMPRESSION: Negative renal ultrasound. Electronically Signed by Scotty Jones MD 12/04/2018 02:01 P
[2018-12-04 14:00] VITALS: BP 125/76
[2018-12-04 22:00] VITALS: BP 106/73
[2018-12-05] MEDS: NS 1,000 ML IV SCH ×2 (05:12→15:01)
[2018-12-05 06:00] VITALS: BP 136/79
[2018-12-05 07:38] LABS: TOTAL PROTEIN 5.8 GM/DL (6.4-8.2)
[2018-12-05] MEDS ORDERED: PROMETHAZINE INJ 25 MG/ML VIAL (J2550) IV ONE ×2 (08:00→19:30)
[2018-12-05] MEDS: GABAPENTIN 300 MG CAP PO SCH ×3 (08:37→21:04)
[2018-12-05] MEDS: ENOXAPARIN 30 MG/0.3 ML SYR (J1650) SC SCH (08:37)
[2018-12-05] MEDS: PANTOPRAZOLE 40MG TAB (PROTONIX) PO SCH (09:00)
[2018-12-05] MEDS: DOCUSATE SODIUM 100 MG CAP PO SCH ×2 (09:00→21:03)
[2018-12-05] MEDS ORDERED: ONDANSETRON 4MG/2ML VIAL (J2405) As Ordered ONE (10:18)
[2018-12-05] MEDS: ONDANSETRON 4MG/2ML VIAL (J2405) IV PRN ×2 (10:46→16:42)
[2018-12-05 10:58] LABS: PTH INTACT 37.3 PG/ML (18.5-88.0)
[2018-12-05 14:00] VITALS: BP 155/72
[2018-12-05] MEDS ORDERED: PROMETHAZINE INJ 25 MG/ML VIAL (J2550) IV PRN (14:30)
--- NOTE | 2018-12-05 17:41 | IPNPDOC ---
Subjective Date Seen The patient was seen on 12/05/18. Subjective Chief Complaint/HPI persistent N, anorexia c minimal po Constitutional: Denies: Chills Eyes: Denies: Pain ENT: Denies: Head Aches Skin: Denies: Rash, Lesions Pulmonary: Denies: Dyspnea, Cough Cardiovascular: Denies: Chest Pain Gastrointestinal: Reports: Nausea; Denies: Vomiting Genitourinary: Denies: Dysuria Objective Physical Examination General Exam: Positive: Alert, No Acute Distress Chest Exam: Positive: Clear to auscultation, Normal air movement Heart Exam: Positive: Rate Normal, Regular Rhythm, Normal S1, Normal S2; Negative: Murmurs, Rubs Abdomen Exam: Positive: Normal bowel sounds, Soft; Negative: Tenderness, Hepatospenomegaly Skin Exam: Positive: Nl turgor and temperature; Negative: Rash, Breakdown Psych Exam: Positive: Mental status NL, Mood NL, Oriented x 3 Assessment /Plan Problems (1) Nausea & vomiting Onset Date: 12/21/2013 Status: Acute Problem Text: 12/05 could not tolerate GES; emperically + meto 10 IV q6H states using THC since ~07/2018 to help c appetite, but has had chronic N/abdominal pain 15Y +; therefore, not cw [facility] tc outpx ERCP ( biliary stent at [facility] which he states he dislodged hours p procedure 2 vomiting 12/04/18 MRCP: No gallstones identified and no evidence of choledocholithiasis. No biliary dilatation. No definite stricture of the common bile duct. 07/[address] Kaiser: .mild chronic gastritis, normal SBB (2) Erythrocytosis Status: Chronic Problem Text: c mild leukocytosis 12/2017 EPA 4 c hgb 17.2- favoring PCV-check SABAS, ? ho BMB, if not, plan as outpx (3) Hypercalcemia Status: Chronic Problem Text: other possible cause of abdominal pain 12/03 10.9 check davis (4) Acute kidney injury Onset Date: 01/29/2014 Status: Acute Problem Text: favor 2 hypovolemia continue LR 100H 12/04 normal renal US baseline cr 1.0-1.1 (5) Chronic abdominal pain Status: Acute Problem Text: as per abd pain Plan/VTE VTE Prophylaxis Ordered?: Yes VS, I&O, 24H, Fishbone Vital Signs/I&O Vital Signs Date Time Temp Pulse Resp B/P (MAP) Pulse Ox O2 Delivery O2 Flow Rate FiO2 12/05/18 14:00 98.1 63 14 155/72 (99) 97 12/04/18 03:38 Room Air I&O- Last 24 Hours up to 6 AM 12/05/18 06:00 Intake Total 5420 ml Output Total 1050 ml Balance 4370 ml Laboratory Data 24H LABS Laboratory Tests 2 12/05/18 05:30: Total Protein (PEP) 5.8L, Parathyroid Hormone (Intact) 37.3 Gurpreet Bashir M.D. Dec 05, 2018 17:41
[2018-12-05] MEDS: LR 1,000 ML IV SCH (17:47)
[2018-12-05] MEDS: METOCLOPRAMIDE INJ 10MG/2ML VIAL (J2765) IV SCH (17:55)
[2018-12-05 18:59] LABS: BASO % 0.5 % (0.0-1.0); EOS % 0.5 % (0.0-3.0); HEMATOCRIT 42.6 % (42.0-52.0); LYMPH # 1.6 10^3/uL (1.5-4.5); LYMPH % 18.3 % (24.0-44.0); MEAN CORPUSCULAR HEMOGLOBIN 30.2 pg (27.0-33.0); MEAN CORPUSCULAR HGB CONC 33.3 g/dl (32.0-36.5); MEAN CORPUSCULAR VOLUME 90.6 fl (80.0-96.0); MONO # 0.6 10^3/uL (0.0-0.8); MONO % 6.3 % (0.0-5.0); NEUTROPHILS # 6.6 10^3/uL (1.8-7.7); NEUTROPHILS % 74.2 % (36.0-66.0); PLATELET COUNT, AUTOMATED 172 10^3/uL (150-450); WHITE BLOOD COUNT 8.8 10^3/uL (4.0-10.0)
[2018-12-05 19:17] LABS: HEMOGLOBIN 14.2 g/dl (13.5-17.5)
[2018-12-05 19:25] LABS: ALBUMIN 3.3 GM/DL (3.2-5.2); ALT/SGPT 13 U/L (12-78); AMYLASE 53 U/L (25-115); BILIRUBIN,TOTAL 0.8 MG/DL (0.2-1.0); BLOOD UREA NITROGEN 12 MG/DL (7-18); CALCIUM LEVEL 7.9 MG/DL (8.5-10.1); CARBON DIOXIDE LEVEL 31 MEQ/L (21-32); CHLORIDE LEVEL 106 MEQ/L (98-107); GLOMERULAR FILTRATION RATE > 60.0 (>60); GLUCOSE, FASTING 80 MG/DL (70-100); LIPASE 118 U/L (73-393); SODIUM LEVEL 140 MEQ/L (136-145); TOTAL PROTEIN 6.3 GM/DL (6.4-8.2)
[2018-12-05] MEDS ORDERED: ISOVUE-370 76% 100ML VIAL (Q9967) As Ordered ONE (19:26)
--- NOTE | 2018-12-05 21:06 | REPVR ---
EXAM: CT Abdomen and Pelvis With Contrast EXAM DATE/TIME: 12/05/2018 7:27 PM CLINICAL HISTORY: 48 years old, male; Abdominal pain; Generalized; Additional info: Abdominal pain and pressure TECHNIQUE: Imaging protocol: Axial computed tomography images of the abdomen and pelvis with intravenous contrast. Coronal and sagittal reformatted images were created and reviewed. Radiation optimization: All CT scans at this facility use at least one of these dose optimization techniques: automated exposure control; mA and/or kV adjustment per patient size (includes targeted exams where dose is matched to clinical indication); or iterative reconstruction. Contrast material: ISOVUE 370;Contrast volume: 100 ml;Contrast route: IV; COMPARISON: CT ABD/PEL W/IV CONTRAST ONLY 08/12/2018 8:00 PM FINDINGS: Liver: Unremarkable. No mass. Gallbladder and bile ducts: A tiny amount of pneumobilia is new compared to the prior examination. No gas or calcified stones are identified within the gallbladder. No bile duct dilatation is identified. Pancreas: No focal pancreatic lesion identified. No peripancreatic inflammation. Mild dilatation of the pancreatic duct within the neck, measuring up to 5 mm is unchanged. Spleen: Unremarkable. No splenomegaly. Adrenals: Normal. No mass. Kidneys and ureters: Unremarkable. No stones. No hydronephrosis. Stomach and bowel: Colonic diverticulosis without diverticulitis. Mild wall thickening of the gastric antrum is likely secondary to peristalsis. Gastritis is not excluded. Appendix: No evidence of appendicitis. Intraperitoneal space: Unremarkable. No free air. No significant fluid collection. Vasculature: Mild atherosclerosis of the abdominal aorta and iliac arteries. No aneurysm. Lymph nodes: Unremarkable. No enlarged lymph nodes. Bladder: Unremarkable as visualized. Reproductive: Unremarkable as visualized. Bones/joints: No acute fracture. Soft tissues: Unremarkable. IMPRESSION: 1. Tiny pneumobilia, new. 2. No other acute abnormality. Electronically signed by: Chandra Cai On 12/05/2018 21:05:59 PM
[2018-12-05 22:00] VITALS: BP 120/68
[2018-12-06] MEDS: METOCLOPRAMIDE INJ 10MG/2ML VIAL (J2765) IV SCH ×4 (01:08→17:52)
[2018-12-06] MEDS: LR 1,000 ML IV SCH ×3 (03:45→16:54)
[2018-12-06 06:00] VITALS: BP 122/74
[2018-12-06 07:13] LABS: BASO % 0.5 % (0.0-1.0); EOS # 0.1 10^3/uL (0.0-0.50); EOS % 0.7 % (0.0-3.0); HEMOGLOBIN 14.4 g/dl (13.5-17.5); LYMPH # 2.2 10^3/uL (1.5-4.5); LYMPH % 26.8 % (24.0-44.0); MEAN CORPUSCULAR HEMOGLOBIN 30.9 pg (27.0-33.0); MEAN CORPUSCULAR HGB CONC 33.5 g/dl (32.0-36.5); MEAN CORPUSCULAR VOLUME 92.3 fl (80.0-96.0); MONO # 0.6 10^3/uL (0.0-0.8); MONO % 7.3 % (0.0-5.0); NEUTROPHILS # 5.2 10^3/uL (1.8-7.7); NEUTROPHILS % 64.5 % (36.0-66.0); PLATELET COUNT, AUTOMATED 173 10^3/uL (150-450); RED BLOOD COUNT 4.66 10^6/uL (4.30-6.10); WHITE BLOOD COUNT 8.1 10^3/uL (4.0-10.0)
[2018-12-06 07:28] LABS: ALBUMIN 3.3 GM/DL (3.2-5.2); ALT/SGPT 12 U/L (12-78); BILIRUBIN,TOTAL 0.9 MG/DL (0.2-1.0); BLOOD UREA NITROGEN 9 MG/DL (7-18); CALCIUM LEVEL 8.2 MG/DL (8.5-10.1); CARBON DIOXIDE LEVEL 30 MEQ/L (21-32); CHLORIDE LEVEL 107 MEQ/L (98-107); CREATININE FOR GFR 0.77 MG/DL (0.70-1.30); GLOMERULAR FILTRATION RATE > 60.0 (>60); GLUCOSE, FASTING 83 MG/DL (70-100); POTASSIUM SERUM 3.4 MEQ/L (3.5-5.1); SODIUM LEVEL 141 MEQ/L (136-145); TOTAL PROTEIN 6.2 GM/DL (6.4-8.2)
[2018-12-06] MEDS: ONDANSETRON 4MG/2ML VIAL (J2405) IV PRN ×2 (08:11→21:16)
[2018-12-06] MEDS: PANTOPRAZOLE 40MG TAB (PROTONIX) PO SCH (08:38)
[2018-12-06] MEDS: DOCUSATE SODIUM 100 MG CAP PO SCH (08:38)
[2018-12-06] MEDS: ENOXAPARIN 30 MG/0.3 ML SYR (J1650) SC SCH (08:38)
[2018-12-06] MEDS: GABAPENTIN 300 MG CAP PO SCH ×3 (08:38→21:16)
[2018-12-06 14:00] VITALS: BP 130/80
--- NOTE | 2018-12-06 14:05 | IPNPDOC ---
Subjective Date Seen The patient was seen on 12/06/18. Subjective Chief Complaint/HPI again woke c AM N/dyspepsia, V X 1 Constitutional: Denies: Chills Eyes: Denies: Pain, Vision change ENT: Denies: Head Aches, Ear Pain Pulmonary: Denies: Dyspnea Cardiovascular: Denies: Chest Pain, Palpitations Gastrointestinal: Reports: Nausea, Vomiting (NBNB x 1 this AM) Objective Physical Examination General Exam: Positive: Alert, No Acute Distress Chest Exam: Positive: Clear to auscultation, Normal air movement Heart Exam: Positive: Rate Normal, Regular Rhythm, Normal S1, Normal S2; Negative: Murmurs, Rubs Abdomen Exam: Positive: Normal bowel sounds, Soft; Negative: Tenderness, Hepatospenomegaly Skin Exam: Positive: Nl turgor and temperature; Negative: Rash, Breakdown Psych Exam: Positive: Mental status NL, Mood NL, Oriented x 3 Assessment /Plan Problems (1) Nausea & vomiting Onset Date: 12/21/2013 Status: Acute Problem Text: favors at least partially gastroparesis given worst sx upon awakening 12/06 increase to 10 IV q6H, change panto 40 QD to IV BID 12/05 could not tolerate GES; emperically + meto 5 IV q6H to odan 8 IV q6Hprn c improvement states using THC since ~07/2018 to help c appetite, but has had chronic N/ abdominal pain 15Y +; therefore, not cw CHS tc outpx ERCP ( biliary stent at [facility] which he states he dislodged hours p procedure 2 vomiting no benefit from promethazine 12/04/18 MRCP: No gallstones identified and no evidence of choledocholithiasis. No biliary dilatation. No definite stricture of the common bile duct. 07/[address] Kaiser: .mild chronic gastritis, normal SBB (2) Erythrocytosis Status: Chronic Problem Text: favor mainly 2 dehydration given resolved c hydration c mild leukocytosis 12/2017 EPA 4 c hgb 17.2- favoring PCV-check SABAS, ? ho BMB, tc as outpx (3) Hypercalcemia Status: Chronic Problem Text: favor 2 PANKAJ 12/05 down to 7.9 c appropriate PTH 37 12/03 10.9 check davis (4) Acute kidney injury Onset Date: 01/29/2014 Status: Acute Problem Text: back to baseline cr 1.0-1.1 c hydration 12/06 K 3.4; therefore, K run x 2 continue LR 100H 12/04 normal renal US (5) Chronic abdominal pain Status: Acute Problem Text: as per NV Plan/VTE VTE Prophylaxis Ordered?: Yes VS, I&O, 24H, Fishbone Vital Signs/I&O Vital Signs Date Time Temp Pulse Resp B/P (MAP) Pulse Ox O2 Delivery O2 Flow Rate FiO2 12/06/18 06:00 98.2 69 17 122/74 (90) 98 12/04/18 03:38 Room Air I&O- Last 24 Hours up to 6 AM 12/06/18 05:59 Intake Total 1600 ml Output Total 1100 ml Balance 500 ml Laboratory Data 24H LABS Laboratory Tests 2 12/05/18 18:30: Immature Granulocyte % (Auto) 0.2, White Blood Count 8.8, Red Blood Count 4.70, Hemoglobin 14.2#, Hematocrit 42.6, Mean Corpuscular Volume 90.6, Mean Corpuscular Hemoglobin 30.2, Mean Corpuscular Hemoglobin Concent 33.3, Red Cell Distribution Width 13.1, Platelet Count 172, Neutrophils (%) (Auto) 74.2H, Lymphocytes (%) (Auto) 18.3L, Monocytes (%) (Auto) 6.3H, Eosinophils (%) (Auto) 0.5, Basophils (%) (Auto) 0.5, Neutrophils # (Auto) 6.6, Lymphocytes # (Auto) 1.6, Monocytes # (Auto) 0.6, Eosinophils # (Auto) 0.0, Basophils # (Auto) 0.0, Nucleated Red Blood Cells % (auto) 0.0, Anion Gap 3L, Glomerular Filtration Rate > 60.0, Blood Urea Nitrogen 12#, Creatinine 0.80#, Sodium Level 140, Potassium Level 4.0, Chloride Level 106, Carbon Dioxide Level 31, Calcium Level 7.9#L, Aspartate Amino Transf (AST/SGOT) 11, Alanine Aminotransferase (ALT/SGPT) 13, Alkaline Phosphatase 75, Total Bilirubin 0.8, Total Protein 6.3#L, Albumin 3.3#, Albumin/Globulin Ratio 1.10, Amylase Level 53, Lipase 118 12/06/18 06:33: Immature Granulocyte % (Auto) 0.2, White Blood Count 8.1, Red Blood Count 4.66, Hemoglobin 14.4, Hematocrit 43.0, Mean Corpuscular Volume 92.3, Mean Corpuscular Hemoglobin 30.9, Mean Corpuscular Hemoglobin Concent 33.5, Red Cell Distribution Width 13.0, Platelet Count 173, Neutrophils (%) (Auto) 64.5, Lymphocytes (%) (Auto) 26.8, Monocytes (%) (Auto) 7.3H, Eosinophils (%) (Auto) 0.7, Basophils (%) (Auto) 0.5, Neutrophils # (Auto) 5.2, Lymphocytes # (Auto) 2.2, Monocytes # (Auto) 0.6, Eosinophils # (Auto) 0.1, Basophils # (Auto) 0.0, Nucleated Red Blood Cells % (auto) 0.0, Anion Gap 4L, Glomerular Filtration Rate > 60.0, Blood Urea Nitrogen 9, Creatinine 0.77, Sodium Level 141, Potassium Level 3.4L, Chloride Level 107, Carbon Dioxide Level 30, Calcium Level 8.2L, Aspartate Amino Transf (AST/SGOT) 10, Alanine Aminotransferase (ALT/SGPT) 12, Alkaline Phosphatase 75, Total Bilirubin 0.9, Total Protein 6.2L, Albumin 3.3, Albumin/Globulin Ratio 1.14 CBC/BMP Laboratory Tests 12/05/18 18:30 Red Blood Count 4.70, Mean Corpuscular Volume 90.6, Mean Corpuscular Hemoglobin 30.2, Mean Corpuscular Hemoglobin Concent 33.3, Red Cell Distribution Width 13.1, Neutrophils (%) (Auto) 74.2 H, Lymphocytes (%) (Auto) 18.3 L, Monocytes (%) (Auto) 6.3 H, Eosinophils (%) (Auto) 0.5, Basophils (%) (Auto) 0.5, Neutrophils # (Auto) 6.6, Lymphocytes # (Auto) 1.6, Monocytes # (Auto) 0.6, Eosinophils # (Auto) 0.0, Basophils # (Auto) 0.0, Calcium Level 7.9 #L, Aspartate Amino Transf (AST/SGOT) 11, Alanine Aminotransferase (ALT/SGPT) 13, Alkaline Phosphatase 75, Total Bilirubin 0.8, Total Protein 6.3 #L, Albumin 3.3 # 12/06/18 06:33 Red Blood Count 4.66, Mean Corpuscular Volume 92.3, Mean Corpuscular Hemoglobin 30.9, Mean Corpuscular Hemoglobin Concent 33.5, Red Cell Distribution Width 13.0, Neutrophils (%) (Auto) 64.5, Lymphocytes (%) (Auto) 26.8, Monocytes (%) (Auto) 7.3 H, Eosinophils (%) (Auto) 0.7, Basophils (%) (Auto) 0.5, Neutrophils # (Auto) 5.2, Lymphocytes # (Auto) 2.2, Monocytes # (Auto) 0.6, Eosinophils # (Auto) 0.1, Basophils # (Auto) 0.0, Calcium Level 8.2 L, Aspartate Amino Transf (AST/SGOT) 10, Alanine Aminotransferase (ALT/SGPT) 12, Alkaline Phosphatase 75, Total Bilirubin 0.9, Total Protein 6.2 L, Albumin 3.3 Gurpreet Bashir M.D. Dec 06, 2018 14:05
[2018-12-06] MEDS ORDERED: METOCLOPRAMIDE INJ 10MG/2ML VIAL (J2765) IV ONE (14:30)
[2018-12-06] MEDS: KCL 10MEQ/100ML SWI (KRUN) 10 MEQ in APPROPRIATE DILUENT 1 EA IV SCH ×2 (14:46→16:54)
[2018-12-06] MEDS: PANTOPRAZOLE 40MG INJ (PROTONIX) (C9113) IV SCH (21:16)
[2018-12-06 22:00] VITALS: BP 118/72
[2018-12-07] MEDS: METOCLOPRAMIDE INJ 10MG/2ML VIAL (J2765) IV SCH ×3 (05:17→11:51)
[2018-12-07] MEDS: LR 1,000 ML IV SCH (05:22)
[2018-12-07 06:00] VITALS: BP 118/79
[2018-12-07 06:30] LABS: HEMATOCRIT 42.5 % (42.0-52.0); HEMOGLOBIN 14.3 g/dl (13.5-17.5); MEAN CORPUSCULAR HEMOGLOBIN 30.6 pg (27.0-33.0); MEAN CORPUSCULAR HGB CONC 33.6 g/dl (32.0-36.5); MEAN CORPUSCULAR VOLUME 90.8 fl (80.0-96.0); PLATELET COUNT, AUTOMATED 144 10^3/uL (150-450); RED BLOOD COUNT 4.68 10^6/uL (4.30-6.10); WHITE BLOOD COUNT 6.4 10^3/uL (4.0-10.0)
[2018-12-07 07:03] LABS: ALBUMIN 3.3 GM/DL (3.2-5.2); ALT/SGPT 11 U/L (12-78); BLOOD UREA NITROGEN 8 MG/DL (7-18); CALCIUM LEVEL 8.4 MG/DL (8.5-10.1); CARBON DIOXIDE LEVEL 26 MEQ/L (21-32); CHLORIDE LEVEL 107 MEQ/L (98-107); CREATININE FOR GFR 0.69 MG/DL (0.70-1.30); GLOMERULAR FILTRATION RATE > 60.0 (>60); GLUCOSE, FASTING 74 MG/DL (70-100); POTASSIUM SERUM 3.6 MEQ/L (3.5-5.1); SODIUM LEVEL 139 MEQ/L (136-145); TOTAL PROTEIN 6.2 GM/DL (6.4-8.2)
[2018-12-07] MEDS: PANTOPRAZOLE 40MG INJ (PROTONIX) (C9113) IV SCH (08:08)
[2018-12-07] MEDS: ONDANSETRON 4MG/2ML VIAL (J2405) IV PRN (08:09)
[2018-12-07] MEDS: GABAPENTIN 300 MG CAP PO SCH ×2 (08:09→16:00)
[2018-12-07] MEDS: ENOXAPARIN 30 MG/0.3 ML SYR (J1650) SC SCH (08:09)
[2018-12-07 14:00] VITALS: BP 120/78
--- NOTE | 2018-12-08 07:54 | DSES ---
DATE OF ADMISSION: 12/03/2018 DATE OF DISCHARGE: 12/07/2018 DISCHARGE DIAGNOSES: 1. CHRONIC ABDOMINAL PAIN WITH ANOREXIA, NAUSEA AND VOMITING. 2. ACUTE KIDNEY INJURY (PANKAJ). 3. GASTRITIS. HOSPITAL COURSE: The patient presented to [facility] Emergency Room with typical recurrent epigastric pain, nausea, vomiting and anorexia. He was found to be in acute kidney injury with BUN of 23 and creatinine of 1.8 with a potassium of 4.1, normal amylase, lipase and white blood cell count of 14.3. Hemoglobin 19.4, hematocrit 55.7. Renal function returned to baseline after three days of intravenous (IV) hydration. IMAGING: CT of the abdomen and pelvis was unremarkable except for a tiny pneumobilia and mild thickening of gastric antrum. Renal ultrasound was unremarkable. MRCT showed no gall stones and no evidence of choledocholithiasis or biliary dilatation or definite common bile duct (CBD) stricture. Gastric emptying study was attempted given his symptoms are suspicious for gastroparesis, given his worse epigastric pain, nausea and vomiting is in the morning but this was unable to be done because of intolerance and vomiting. Therefore the patient was empirically started on Metoclopramide 10 mg before meals and nightly which he tolerated well and which resolved his nausea, and abdominal pain symptoms. DISCHARGE MEDICATIONS: The patient was discharged home on Metoclopramide 10 before meals three times a day and nightly with ondansetron 4 mg orally dissolving every four hours as needed nausea and Pantoprazole 40 mg by mouth daily along with his baseline home dose of gabapentin. He states he already has a followup appointment with his primary care physician (PCP) tomorrow, Janelle Lacy. Further workup could include outpatient endoscopic retrograde cholangiopancreatography (ERCP). Apparently [place] a [place] dis[place]ged hours after procedure secondary to vomiting versus reattempting gastric emptying study. edited: 12/08/2018 [id number] damaso DURAN
[2018-12-09 12:45] LABS: ALBUMIN 3.56 GM/DL (3.29-5.55); ALBUMIN % 61.4 % (55.8-66.1); ALPHA-1-GLOBULIN % 4.8 % (2.9-4.9); ALPHA-1-GLOBULINS 0.28 GM/DL (0.17-0.41); ALPHA-2-GLOBULINS 0.52 GM/DL (0.42-0.99); BETA-1-GLOBULINS 0.35 GM/DL (0.28-0.60); BETA-2-GLOBULINS 0.26 GM/DL (0.19-0.55); BETA-2-GLOBULINS % 4.5 % (3.2-6.5); GAMMA GLOBULIN % 14.3 % (11.1-18.8)
[2018-12-09 12:46] LABS: GAMMA GLOBULINS 0.83 GM/DL (0.65-1.58)
== END 2018-12-07 16:25 | disposition home or self-care (01) ==
LOC: M ED 22:12 → M ED INP 22:13 → M MSPAV 12-04 03:46
PROVIDERS: ADMIT Internal Medicine; ATTEND Family Medicine
DX: R10.13 Epigastric pain (principal); G89.29 Other chronic pain; R11.2 Nausea with vomiting, unspecified; R63.0 Anorexia; N17.9 Acute kidney failure, unspecified; E86.0 Dehydration; E86.1 Hypovolemia; K86.1 Other chronic pancreatitis; R63.4 Abnormal weight loss; D75.1 Secondary polycythemia; E83.52 Hypercalcemia; D72.829 Elevated white blood cell count, unspecified; K29.50 Unspecified chronic gastritis without bleeding; Z76.5 Malingerer [conscious simulation]; Z79.899 Other long term (current) drug therapy; Z88.5 Allergy status to narcotic agent; F12.90 Cannabis use, unspecified, uncomplicated; F17.210 Nicotine dependence, cigarettes, uncomplicated
CPT/HCPCS: 36415; 74177; 74181; 76775; 80048; 80053; 80076; 80307; 82150; 83519; 83690; 83735; 83970; 84165; 85025; 85027; 86677; 93041; 96361; 96365; 96372; 96375; 96376; 97161; 99285; C9113; G0480; J1650; J1885; J2405; J2765; Q9967

== ENCOUNTER → 2018-12-11 | Outpatient (CLI) | payer MEDICAID, OTHER ==
--- NOTE | 2018-12-11 11:51 | REP ---
Hepatobiliary scan and gallbladder ejection fraction: History: Epigastric abdominal pain. Technique: 6.6 mCi of technetium-99m mebrofenin was injected and sequential anterior images are acquired. 65 minutes after the mebrofenin injection, the patient consumed 8 ounces Ensure and an additional 60 minutes of imaging was acquired. Regions of interest are plotted around the gallbladder. Findings: The initial hepatocellular parenchymal uptake phase is normal and homogeneous. Intra- and extra-hepatic bile ducts are labeled by the 10 -minute image. The gallbladder is first labeled on the 10 -minute image. There is normal washout from the liver parenchyma into the gallbladder and small intestine on subsequent images. The gallbladder ejection fraction is 33 %. Values greater than 35 % are considered normal with this technique. Impression: Normal hepatobiliary scan and borderline low gallbladder ejection fraction. Electronically Signed by Harvey Braden MD 12/11/2018 11:43 A
== END ==
LOC: M RAD 07:53
PROVIDERS: ATTEND Family Medicine
DX: R10.13 Epigastric pain (principal)
CPT/HCPCS: 78227; A9537; J2805

== ENCOUNTER 2019-02-04 11:34 | Emergency (ER) | payer MEDICAID, OTHER ==
[~2019-02-04] VITALS: Ht 172.7 cm; Wt 58.2 kg
[2019-02-04] MEDS ORDERED: KETAMINE HCL IV ONE (11:45)
[2019-02-04] MEDS ORDERED: NS IV ONE (11:45)
[2019-02-04] MEDS ORDERED: HALOPERIDOL 5 MG/ML VIAL (J1630) IV ONE (11:45)
[2019-02-04] MEDS ORDERED: diphenhydrAMINE INJ 50MG/ML VIAL (J1200) IV ONE (11:45)
[2019-02-04] MEDS: NS 1,000 ML IV SCH (12:03)
[2019-02-04 12:21] LABS: BASO % 0.3 % (0.0-1.0); EOS % 0.2 % (0.0-3.0); HEMATOCRIT 55.4 % (42.0-52.0); HEMOGLOBIN 19.7 g/dl (13.5-17.5); LYMPH # 1.4 10^3/uL (1.5-5.0); LYMPH % 11.1 % (24.0-44.0); MEAN CORPUSCULAR HEMOGLOBIN 30.8 pg (27.0-33.0); MEAN CORPUSCULAR HGB CONC 35.6 g/dl (32.0-36.5); MEAN CORPUSCULAR VOLUME 86.6 fl (80.0-96.0); MONO # 0.6 10^3/uL (0.0-0.8); MONO % 4.7 % (0.0-5.0); NEUTROPHILS # 10.5 10^3/uL (1.5-8.5); NEUTROPHILS % 83.2 % (36.0-66.0); PLATELET COUNT, AUTOMATED 233 10^3/uL (150-450); WHITE BLOOD COUNT 12.6 10^3/uL (4.0-10.0)
[2019-02-04] MEDS ORDERED: PROMETHAZINE INJ 25 MG/ML VIAL (J2550) IV ONE (12:30)
[2019-02-04 12:33] LABS: INR 1.05; PROTHROMBIN TIME 13.4 SECONDS (11.8-14.0)
[2019-02-04 12:48] LABS: ALBUMIN 5.1 GM/DL (3.2-5.2); BILIRUBIN,DIRECT 0.2 MG/DL (0.0-0.2); BILIRUBIN,TOTAL 0.8 MG/DL (0.2-1.0); TOTAL PROTEIN 8.9 GM/DL (6.4-8.2)
[2019-02-04] MEDS ORDERED: NS 1,000 ML IV ONE ×2 (13:15)
[2019-02-04] MEDS ORDERED: ONDANSETRON 4MG/2ML VIAL (J2405) IV ONE (14:15)
[2019-02-04] MEDS ORDERED: HYDROMORPHONE HCL 0.5 MG/ 0.5 ML SYRINGE (J1170 PER 1) IV PRN (16:00)
[2019-02-04 17:10] VITALS: BP 131/68
--- NOTE | 2019-02-05 00:17 | ECGEPIP ---
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
== END 2019-02-04 17:19 | disposition home or self-care (01) ==
LOC: M ED 11:34 → EDBD 11:34 → M ED 17:19
DX: K86.1 Other chronic pancreatitis (principal); R11.2 Nausea with vomiting, unspecified; J44.9 Chronic obstructive pulmonary disease, unspecified; F17.200 Nicotine dependence, unspecified, uncomplicated; F12.11 Cannabis abuse, in remission; Z79.899 Other long term (current) drug therapy; Z88.8 Allergy status to other drugs, medicaments and biological substances
CPT/HCPCS: 80047; 80076; 83690; 85025; 85610; 93005; 94760; 96361; 96374; 96375; 99285; J1170; J1200; J1630; J2405

== ENCOUNTER 2019-03-16 13:30 | Emergency (ER) | payer MEDICAID, OTHER ==
[~2019-03-16] VITALS: Ht 172.7 cm; Wt 57.3 kg
[2019-03-16] MEDS ORDERED: PANT40TA3 PO (13:40)
[2019-03-16] MEDS ORDERED: FAMO40TA3 PO (13:40)
[2019-03-16] MEDS ORDERED: METO10TA2 PO (13:40)
[2019-03-16 14:49] LABS: BASO % 0.3 % (0.0-1.0); EOS % 0.2 % (0.0-3.0); HEMATOCRIT 55.9 % (42.0-52.0); HEMOGLOBIN 19.3 g/dl (13.5-17.5); LYMPH # 1.4 10^3/uL (1.5-5.0); LYMPH % 11.6 % (24.0-44.0); MEAN CORPUSCULAR HEMOGLOBIN 30.4 pg (27.0-33.0); MEAN CORPUSCULAR HGB CONC 34.5 g/dl (32.0-36.5); MEAN CORPUSCULAR VOLUME 88.2 fl (80.0-96.0); MONO # 1.1 10^3/uL (0.0-0.8); MONO % 9.1 % (0.0-5.0); NEUTROPHILS # 9.7 10^3/uL (1.5-8.5); NEUTROPHILS % 78.4 % (36.0-66.0); PLATELET COUNT, AUTOMATED 215 10^3/uL (150-450); RED BLOOD COUNT 6.34 10^6/uL (4.30-6.10); WHITE BLOOD COUNT 12.3 10^3/uL (4.0-10.0)
[2019-03-16 15:09] LABS: ALBUMIN 4.7 GM/DL (3.2-5.2); ALT/SGPT 16 U/L (12-78); BILIRUBIN,DIRECT 0.2 MG/DL (0.0-0.2); BILIRUBIN,TOTAL 0.6 MG/DL (0.2-1.0); BLOOD UREA NITROGEN 30 MG/DL (7-18); CALCIUM LEVEL 10.4 MG/DL (8.5-10.1); CARBON DIOXIDE LEVEL 28 MEQ/L (21-32); CHLORIDE LEVEL 100 MEQ/L (98-107); GLOMERULAR FILTRATION RATE 57.3 (>60); GLUCOSE, FASTING 122 MG/DL (70-100); LIPASE 142 U/L (73-393); POTASSIUM SERUM 4.3 MEQ/L (3.5-5.1); SODIUM LEVEL 138 MEQ/L (136-145); TOTAL PROTEIN 8.9 GM/DL (6.4-8.2)
[2019-03-16] MEDS ORDERED: ISOVUE-370 76% 100ML VIAL (Q9967) As Ordered ONE (15:25)
[2019-03-16] MEDS ORDERED: ONDANSETRON 4MG/2ML VIAL (J2405) IV ONE (15:30)
[2019-03-16] MEDS ORDERED: NS 1,000 ML IV ONE ×4 (15:30→21:00)
[2019-03-16] MEDS ORDERED: MORPHINE 2 MG/ML 1ML VIAL (J2270) IV ONE (15:30)
[2019-03-16 15:41] LABS: CHOLESTEROL LEVEL 216 MG/DL (<200); HDL CHOLESTEROL 48 MG/DL (>40); LDL CHOLESTEROL 137 MG/DL (<100); NON-HDL-C 168 MG/DL; TRIGLYCERIDES LEVEL 154 MG/DL (<150)
--- NOTE | 2019-03-16 15:56 | REP ---
CT abdomen and pelvis with IV but without oral contrast: History: Diffuse abdomen pain. Comparison study: December 05, 2018. CT contrast dose: 100 mL of intravenous Isovue 370. CT findings: Digital preliminary turn down man radiograph shows an unremarkable bowel gas pattern. The lung bases appear somewhat hyperinflated but are clear. There is no evidence of pleural effusion. The liver and the spleen are normal in size, homogeneous in texture. No adrenal lesion is seen on either side. No pancreatic abnormalities observed. The gallbladder is unremarkable. The kidneys enhance symmetrically and appear morphologically intact. No hydronephrosis is seen. A retroaortic left renal vein is noted incidentally. Normal appendix is seen just posterior to the cecum. No retroperitoneal mass or adenopathy is observed. There is left colonic diverticulosis. There is no CT evidence of diverticulitis. Prostate, seminal vesicles and urinary bladder are unremarkable. No abdominal wall defect is seen. No evidence of free fluid or free air. There are degenerative changes in the lumbar spine. Impression: No acute abdominal or pelvic abnormality. Normal appendix seen. Electronically Signed by Harvey Braden MD 03/16/2019 06:51 P
[2019-03-16 16:11] LABS: CK-MB VALUE MASS < 1.0 NG/ML (<3.6); CPK CREATINE PHOSPHOKINASE 61 U/L (39-308); MB/CK RELATIVE INDEX 1.64 (< OR =4); TROPONIN I < 0.02 NG/ML (< 0.10)
--- NOTE | 2019-03-16 16:13 | REP ---
Chest x-ray: Two views. History: Shortness of breath. Comparison study: July 20, 2016. Findings: The lungs are hyperinflated but free of infiltrate. There is a small granuloma projecting over the right anterior fourth rib. Remaining lung wright are clear. Pleural angles are sharp. There are degenerative changes in the thoracic spine. No acute bony abnormality. Vascular calcification is seen in the soft tissues of the neck. Impression: There is mild hyperinflation. Otherwise no acute disease. Electronically Signed by Harvey Braden MD 03/16/2019 04:05 P
--- NOTE | 2019-03-16 16:40 | ECGEPIP ---
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
[2019-03-16] MEDS ORDERED: GI COCKTAIL 50ML BTL(HYOSCYAMINE/MAALOX/LIDOCAINE VISCOUS)(1:3:1) PO ONE (16:45)
--- NOTE | 2019-03-16 17:16 | REP ---
Right upper quadrant sonography: History: Epigastric and right upper quadrant pain. Findings: Scanning through the right upper quadrant of the abdomen demonstrates a mildly distended appearing elongate gallbladder measuring 9.6 cm in the greatest dimension. Gallbladder wall is not thickened. There is mobile echogenic sludge within the gallbladder. No shadowing calculus is seen. No pericholecystic fluid is seen. Common bile duct is normal measuring 0.4 cm in greatest diameter. No focal liver lesion is seen. No pancreatic abnormalities observed. There is no evidence of ascites or right renal abnormality. The right kidney measures 12.9 x 6.3 x 4.5 cm. Impression: Mildly distended gallbladder containing minimal sludge but no observable stone. Otherwise normal right upper quadrant sonography. Electronically Signed by Harvey Braden MD 03/16/2019 06:51 P
[2019-03-16] MEDS ORDERED: MORPHINE 4 MG/ML 1ML VIAL/SYRINGE (J2270) IV ONE (18:30)
[2019-03-16] MEDS ORDERED: GABA-845 PO (18:52)
--- NOTE | 2019-03-16 19:39 | IPN ---
DATE: 03/16/2019 Emergency room on-call made for the admission for Casey Diana. Patient had decided to refuse admission. He did not want to be brought into the hospital for treatment for his acute abdominal pain. This has been left to the emergency room (ER) physician for ER discharge. Patient has signed out against medical advice prior to admission. He refused to be interviewed and examined and decided to go home. ROGER
[2019-03-16 20:02] VITALS: BP 144/76
== END 2019-03-16 20:36 | disposition home or self-care (01) ==
LOC: M ED 13:30 → UNDOADMIN 19:10 → M ED INP 19:10 → M ED 20:36
DX: E86.0 Dehydration (principal); N17.9 Acute kidney failure, unspecified; R10.13 Epigastric pain; Z53.21 Procedure and treatment not carried out due to patient leaving prior to being seen by health care provider; I10 Essential (primary) hypertension; Z87.448 Personal history of other diseases of urinary system; K57.32 Diverticulitis of large intestine without perforation or abscess without bleeding; Z96.89 Presence of other specified functional implants; Z87.19 Personal history of other diseases of the digestive system; F17.200 Nicotine dependence, unspecified, uncomplicated; F12.10 Cannabis abuse, uncomplicated; Z79.899 Other long term (current) drug therapy; Z88.5 Allergy status to narcotic agent
CPT/HCPCS: 71046; 74177; 76705; 80048; 80061; 80076; 81001; 82550; 82553; 83690; 85025; 93005; 96361; 96374; 96375; 96376; 99284; J2270; J2405; Q9967

== ENCOUNTER 2019-03-18 12:16 | Observation (INO) | payer OTHER ==
[~2019-03-18] VITALS: Ht 172.7 cm; Wt 56.2 kg
[~2019-03-18 12:16] MED LIST changes: +GABA-845 PO; +METO10TA2 PO
[2019-03-18 12:55] LABS: BASO % 0.4 % (0.0-1.0); EOS % 0.3 % (0.0-3.0); HEMATOCRIT 47.8 % (42.0-52.0); LYMPH # 1.4 10^3/uL (1.5-5.0); LYMPH % 14.1 % (24.0-44.0); MEAN CORPUSCULAR HEMOGLOBIN 30.7 pg (27.0-33.0); MEAN CORPUSCULAR HGB CONC 35.1 g/dl (32.0-36.5); MEAN CORPUSCULAR VOLUME 87.4 fl (80.0-96.0); MONO # 0.6 10^3/uL (0.0-0.8); MONO % 6.4 % (0.0-5.0); NEUTROPHILS # 7.6 10^3/uL (1.5-8.5); NEUTROPHILS % 78.6 % (36.0-66.0); PLATELET COUNT, AUTOMATED 189 10^3/uL (150-450); RED BLOOD COUNT 5.47 10^6/uL (4.30-6.10); WHITE BLOOD COUNT 9.6 10^3/uL (4.0-10.0)
[2019-03-18 13:15] LABS: HEMOGLOBIN 16.8 g/dl (13.5-17.5)
[2019-03-18 13:22] LABS: ALBUMIN 4.1 GM/DL (3.2-5.2); ALT/SGPT 11 U/L (12-78); BILIRUBIN,DIRECT 0.1 MG/DL (0.0-0.2); BILIRUBIN,TOTAL 0.6 MG/DL (0.2-1.0); LIPASE 107 U/L (73-393); TOTAL PROTEIN 7.8 GM/DL (6.4-8.2)
[2019-03-18] MEDS ORDERED: PROMETHAZINE INJ 25 MG/ML VIAL (J2550) IV ONE (13:45)
[2019-03-18] MEDS ORDERED: NS 1,000 ML IV ONE (13:45)
[2019-03-18] MEDS ORDERED: HALOPERIDOL 5 MG/ML VIAL (J1630) IV ONE (13:45)
[2019-03-18] MEDS ORDERED: PANTOPRAZOLE 40MG INJ (PROTONIX) (C9113) IV ONE (13:45)
[2019-03-18] MEDS ORDERED: NS IV ONE (14:00)
[2019-03-18] MEDS ORDERED: KETAMINE HCL IV ONE (14:00)
--- NOTE | 2019-03-18 16:26 | REP ---
Acute abdominal series: Three views. History: Abdomen pain. Findings: Upright chest radiograph shows no evidence of infiltrate or free subdiaphragmatic air. There is a nodular opacity in the right upper lung zone unchanged from a comparison chest x-ray July 20, 2016 consistent with granuloma. Heart is not enlarged. EKG electrodes are seen. Supine and erect views of the abdomen demonstrate mild vascular calcification in the pelvis. Bowel gas pattern is normal. There are degenerative changes in the lumbar spine. Flank stripes are intact. Psoas margins are symmetric. Impression: Vascular calcification. Normal bowel gas pattern. No active disease in the chest. Electronically Signed by Harvey Braden MD 03/18/2019 04:17 P
[2019-03-18] MEDS ORDERED: ONDA4TAB6 PO (16:38)
[2019-03-18 17:32] LABS: BLOOD UREA NITROGEN 14 MG/DL (7-18); CALCIUM LEVEL 9.2 MG/DL (8.5-10.1); CARBON DIOXIDE LEVEL 25 MEQ/L (21-32); CHLORIDE LEVEL 102 MEQ/L (98-107); CREATININE FOR GFR 0.76 MG/DL (0.70-1.30); GLOMERULAR FILTRATION RATE > 60.0 (>60); GLUCOSE, FASTING 98 MG/DL (70-100); POTASSIUM SERUM 3.5 MEQ/L (3.5-5.1); SODIUM LEVEL 136 MEQ/L (136-145)
[2019-03-18] MEDS ORDERED: MORPHINE 2 MG/ML 1ML VIAL (J2270) IV SCH (18:00)
[2019-03-18] MEDS ORDERED: ACETAMINOPHEN TAB 650MG DOSE (2X325MG) PO PRN (18:15)
[2019-03-18] MEDS ORDERED: POTASSIUM CHLORIDE 10 MEQ SR TABLET PO ONE (18:30)
--- NOTE | 2019-03-18 18:33 | HPEPDOC ---
General Date of Admission 03/18/19 Date of Service: Mar 18, 2019 Chief Complaint The patient is a 48-year-old male admitted with a reason for visit of Vomiting. Source: Patient Exam Limitations: No limitations Timing/Duration: Day(s) Severity: Moderate Associated Symptoms: Loss of appetite, Nausea, Vomiting History of Present Illness Patient's 48 years old male with past medical history of chronic pancreatitis, hypertension, GERD, alcoholism presented hospital with recurrent epigastric pain, nausea, vomiting for past 7 days. Patient stated that his epigastric pain was around 6-7 out of 10, but today increased in intensity and became 9 out of 10. Patient also stated that he has a poor appetite due to constant nausea. Of note patient did have admission for the same complaints in November 2018, workup showed: CT of the abdomen and pelvis was unremarkable except for a tiny pneumobilia and mild thickening of gastric antrum. Renal ultrasound was unremarkable. MRCT showed no gall stones and no evidence of choledocholithiasis or biliary dilatation or definite common bile duct (CBD) stricture. In emergency room patient was found to have no leukocytosis, lipase level 107, creatinine 0.7, LFT unremarkable. Patient denies fever, chills, shortness of breath, palpitations, diarrhea or dysuria Home Medications Scheduled Famotidine (Famotidine) 40 Mg Tablet, 40 MG PO QHS, (Reported) Gabapentin (Gabapentin) 400 Mg Capsule, 400 MG PO TID, (Reported) DOSE WAS INCREASED TO 600MG TID BUT HAS NOT STARTED IT YET Metoclopramide HCl (Metoclopramide HCl) 10 Mg Tablet, 10 MG PO ACHS, (Reported) Pantoprazole Sodium (Pantoprazole Sodium) 40 Mg Tablet.dr, 40 MG PO DAILY, (Reported) Scheduled PRN Ondansetron (Ondansetron Odt) 4 Mg Tab.rapdis, 4 MG PO Q4H PRN for NAUSEA OR VOMITING, (Reported) Allergies Coded Allergies: ketorolac (Verified Adverse Reaction, Mild, NAUSEA, 12/03/18) Past Medical History Medical History Chronic pancreatitis, hypertension, active smoker Surgical History 1. ERCP with pancreatic shunt. 2. Sphincterotomy with ERCP in 2007. 3. EGD and colonoscopy in 2014. 4. Another EGD in 2016, 2018. Family History mother had emphesema and father had liver cirrhosis Social History * Smoker: Denies, current smoker Alcohol: sober Drugs: marijuana A-FIB/CHADSVASC A-FIB History Current/History of A-Fib/PAF?: No Current PO Anticoag Therapy: No Review of Systems Constitutional: Denies: Chills, Fever, Fatigue Eyes: Denies: Pain, Vision change ENT: Denies: Head Aches Skin: Denies: Rash, Lesions Pulmonary: Denies: Dyspnea Cardiovascular: Denies: Chest Pain, Palpitations Gastrointestinal: Reports: Nausea, Vomiting, Abdominal Pain Genitourinary: Denies: Dysuria, Frequency Hematologic: Denies: Bruising, Bleeding Excessively Endocrine: Denies: Polydipsia, Polyphagia Musculoskeletal: Denies: Neck Pain, Back Pain Neurological: Denies: Weakness Psych: Reports: Mood Normal Physical Examination General Exam: Positive: Alert, Cooperative Eye Exam: Positive: PERRLA, Conjunctiva & lids normal ENT Exam: Positive: Atraumatic Neck Exam: Positive: Supple; Negative: JVD Chest Exam: Positive: Clear to auscultation Heart Exam: Positive: Rate Normal Telemetry: Positive: No significant arrhythmia Abdomen Exam: Positive: Normal bowel sounds, Tenderness (epigastric area); Negative: Mass Extremity Exam: Negative: Clubbing, Cyanosis Skin Exam: Positive: Nl turgor and temperature Neuro Exam: Positive: Normal Gait, Strength at 5/5 X4 ext Psych Exam: Positive: Mental status NL Vital Signs Vital Signs Date Time Temp Pulse Resp B/P (MAP) Pulse Ox O2 Delivery O2 Flow Rate FiO2 03/18/19 17:01 66 143/68 (93) 96 03/18/19 16:03 97.8 18 Room Air Laboratory Data Labs 24H Laboratory Tests 2 03/18/19 12:40: Immature Granulocyte % (Auto) 0.2, Neutrophils (%) (Auto) 78.6H, Lymphocytes (%) (Auto) 14.1L, Monocytes (%) (Auto) 6.4H, Eosinophils (%) (Auto) 0.3, Basophils (%) (Auto) 0.4, Neutrophils # (Auto) 7.6, Lymphocytes # (Auto) 1.4L, Monocytes # (Auto) 0.6, Eosinophils # (Auto) 0.0, Basophils # (Auto) 0.0, Nucleated Red Blood Cells % (auto) 0.0, Anion Gap 9, Glomerular Filtration Rate > 60.0, Calcium Level 9.2, Total Bilirubin 0.6, Direct Bilirubin 0.1, Aspartate Amino Transf (AST/SGOT) 11, Alanine Aminotransferase (ALT/SGPT) 11L, Alkaline Phosphatase 98, Total Protein 7.8, Albumin 4.1, Albumin/Globulin Ratio 1.11, Lipase 107 03/18/19 12:41: POC Glucose (Misc Panel) 108H, POC Sodium (Misc Panel) 137, POC Potassium (Misc Panel) 3.4L, POC Chloride (Misc Panel) 99, POC Total CO2 (Misc Panel) 26.0, POC Blood Urea Nitrogen (Misc Panel 14, POC Ionized Calcium (Misc Panel) 4.4L, POC Creatinine (Misc Panel) 0.8, POC Hematocrit (Misc Panel) 49.0 CBC/BMP Laboratory Tests 03/18/19 12:40 Assessment/Plan Patient's 48 years old male with past medical history of chronic pancreatitis, hypertension, GERD, alcoholism presented hospital with recurrent epigastric pain, nausea, vomiting for past 7 days. Problems (1) Epigastric abdominal pain Status: Acute Problem Text: Differential diagnosis includes GERD exacerbation, gastritis, peptic ulcer There is also concern for drug-seeking behavior. Patient had multiple admissions in the past with the same complaints. PPI IV Clear liquid diet Pain management (2) Nausea Onset Date: 12/21/2013 Status: Acute Problem Text: Zofran IV (3) Marijuana abuse Problem Text: Marijuana Use Counseled at length about cessation and possible relation to cyclical vomiting Plan / VTE VTE Prophylaxis Ordered?: Yes PHILOMENA PARRY DO Mar 18, 2019 18:33
[2019-03-18 18:36] LABS: AMYLASE 52 U/L (25-115)
[2019-03-18] MEDS: METOCLOPRAMIDE 10 MG TAB PO SCH (20:33)
[2019-03-18] MEDS: NS 1,000 ML IV SCH (20:37)
[2019-03-18 21:00] VITALS: BP 168/72
[2019-03-18] MEDS: PANTOPRAZOLE 40MG INJ (PROTONIX) (C9113) IV SCH (21:14)
[2019-03-18] MEDS: FAMOTIDINE 20 MG TAB PO SCH (21:15)
[2019-03-18] MEDS: GABAPENTIN 400 MG CAP PO SCH (21:15)
[2019-03-18] MEDS: ONDANSETRON 4 MG ORAL DISINTEGRATING TAB (Q0162 PER 1MG) PO PRN (21:25)
[2019-03-19 00:30] VITALS: BP 104/64
[2019-03-19] MEDS: MORPHINE 2 MG/ML 1ML VIAL (J2270) IV PRN ×6 (00:43→21:56)
[2019-03-19 06:00] VITALS: BP 102/57
[2019-03-19] MEDS: NS 1,000 ML IV SCH ×3 (06:10→20:40)
[2019-03-19] MEDS: PANTOPRAZOLE 40MG INJ (PROTONIX) (C9113) IV SCH ×2 (08:40→20:40)
[2019-03-19] MEDS: METOCLOPRAMIDE 10 MG TAB PO SCH ×4 (08:40→20:41)
[2019-03-19] MEDS: GABAPENTIN 400 MG CAP PO SCH ×3 (08:40→20:41)
--- NOTE | 2019-03-19 10:02 | IPNPDOC ---
Subjective Date Seen The patient was seen on 03/19/19. Subjective Chief Complaint/HPI Pt this morning is angry that nothing is being done to find the cause of his recurrent abd pain. He states that he was sent to [facility] but has only been seen once and has been waiting for another appt for over a month. He states that if no one is going to do anything to help him, he just wants to be sent home. General: Denies: Fatigue Constitutional: Denies: Chills, Fever ENT: Denies: Head Aches Pulmonary: Denies: Dyspnea, Cough Cardiovascular: Denies: Chest Pain, Palpitations Gastrointestinal: Reports: Nausea (improved c/w yesterday.), Abdominal Pain (improved c/w yesterday.); Denies: Vomiting Neurological: Denies: Weakness Psych: Reports: Anger Objective Physical Examination General Exam: Positive: Alert; Negative: Cooperative ENT Exam: Positive: Mucous membr. moist/pink Neck Exam: Positive: Supple Chest Exam: Positive: Clear to auscultation Heart Exam: Positive: Rate Normal Telemetry: Positive: No significant arrhythmia Abdomen Exam: Positive: Normal bowel sounds, Tenderness (epigastric area); Negative: Hepatospenomegaly, Mass Extremity Exam: Negative: Edema Skin Exam: Positive: Nl turgor and temperature Neuro Exam: Positive: Normal Gait, Strength at 5/5 X4 ext Psych Exam: Positive: Mental status NL Assessment /Plan Problems (1) Epigastric abdominal pain Status: Acute Response to Treatment: Stable Discussed With: Nurse, Patient Problem Specific Plan: Monitor Clinically, Repeat Labs Problem Text: recurrent flares c abdominal pain/anorexia/dehydration/PANKAJ, favor 2 chronic pancreatitis +/- biliary dyskinesia given sludge and low gb EF +/- cannabis hyperemesis syndrome (lpase has NEVER bumped during flares) 03/19 refused to attempt to consume anything on his tray of clear liquid, I did get him to agree to try some beef broth and requested this be brought to him. 03/16 CT AP NAD 03/16 gb US "minimal" sludge 12/11 HIDA: Normal hepatobiliary scan and borderline low gallbladder ejection fraction (31%) from last admission: favors at least partially gastroparesis given worst sx upon awakening 12/06 increase to 10 IV q6H, change panto 40 QD to IV BID 12/05 could not tolerate GES; emperically + meto 5 IV q6H to odan 8 IV q6Hprn c improvement states using THC since ~07/2018 to help c appetite, but has had chronic N/abdominal pain 15Y +; therefore, not cw [facility] tc outpx ERCP (ho biliary stent at [facility] which he states he dislodged hours p procedure 2 vomiting no benefit from promethazine 12/04/18 MRCP: No gallstones identified and no evidence of choledocholithiasis. No biliary dilatation. No definite stricture of the common bile duct. 07/[address] Kaiser: .mild chronic gastritis, normal SBB (2) Marijuana abuse Status: Chronic Discussed With: Patient Problem Specific Plan: Monitor Clinically, Repeat Labs Problem Text: +/- cannabis hyperemesis syndrome Contingency: medical THC \\ 12/07/18 urine tox: Carboxy-THC 234 ng/mg creat Carboxy-THC is a metabolite of tetrahydrocannabinol (THC). Source of THC is most commonly illicit, but THC is also present in a scheduled prescription medication. O-Desmethyltramadol 96 ng/mg creat O-desmethyltramadol is an expected metabolite of tramadol. Source of tramadol is a prescription medication. Gabapentin PRESENT (3) Chronic pancreatitis Status: Chronic Problem Text: favor + pancrelipase when diet advanced 03/20 trypsinogen, fecal elastase P 02/02/19 established c [facility] GI-considering celiac axis block (4) GERD (gastroesophageal reflux disease) Status: Chronic Plan/VTE VTE Prophylaxis Ordered?: No (Enc OOB, ambulation. ) VS, I&O, 24H, Fishbone Vital Signs/I&O Vital Signs Date Time Temp Pulse Resp B/P (MAP) Pulse Ox O2 Delivery O2 Flow Rate FiO2 03/19/19 09:24 18 Room Air 03/19/19 06:00 97.3 68 102/57 (72) 98 I&O- Last 24 Hours up to 6 AM 03/19/19 06:00 Intake Total 3490 ml Output Total 610 ml Balance 2880 ml Laboratory Data 24H LABS Laboratory Tests 2 03/18/19 12:40: Immature Granulocyte % (Auto) 0.2, Neutrophils (%) (Auto) 78.6H, Lymphocytes (%) (Auto) 14.1L, Monocytes (%) (Auto) 6.4H, Eosinophils (%) (Auto) 0.3, Basophils (%) (Auto) 0.4, Neutrophils # (Auto) 7.6, Lymphocytes # (Auto) 1.4L, Monocytes # (Auto) 0.6, Eosinophils # (Auto) 0.0, Basophils # (Auto) 0.0, Nucleated Red Blood Cells % (auto) 0.0, Anion Gap 9, Glomerular Filtration Rate > 60.0, Calcium Level 9.2, Total Bilirubin 0.6, Direct Bilirubin 0.1, Aspartate Amino Transf (AST/SGOT) 11, Alanine Aminotransferase (ALT/SGPT) 11L, Alkaline Phosphatase 98, Total Protein 7.8, Albumin 4.1, Albumin/Globulin Ratio 1.11, Amylase Level 52, Lipase 107 03/18/19 12:41: POC Glucose (Misc Panel) 108H, POC Sodium (Misc Panel) 137, POC Potassium (Misc Panel) 3.4L, POC Chloride (Misc Panel) 99, POC Total CO2 (Misc Panel) 26.0, POC Blood Urea Nitrogen (Misc Panel 14, POC Ionized Calcium (Misc Panel) 4.4L, POC Creatinine (Misc Panel) 0.8, POC Hematocrit (Misc Panel) 49.0 03/18/19 18:19: Urine Color YELLOW, Urine Appearance HAZY, Urine pH 7.0, Urine Specific [place] 1.025, Urine Protein 2+H, Urine Glucose (UA) NEGATIVE, Urine Ketones TRACEH, Urine Blood NEGATIVE, Urine Nitrite NEGATIVE, Urine Bilirubin NEGATIVE, Urine Urobilinogen 0.2, Urine Leukocyte Esterase NEGATIVE, Urine WBC (Auto) 6H, Urine RBC (Auto) 2, Urine Hyaline Casts (Auto) 0, Urine Bacteria (Auto) NEGATIVE, Urine Squamous Epithelial Cells 1, Urine Mucus (Auto) SMALL, Urine Sperm (Auto) CBC/BMP Laboratory Tests 03/18/19 12:40 KALEB BROWN PA-C Mar 19, 2019 10:02 Gurpreet Bashir M.D. Mar 19, 2019 17:26
[2019-03-19 20:00] VITALS: BP 112/70
[2019-03-19] MEDS: FAMOTIDINE 20 MG TAB PO SCH (20:40)
[2019-03-19] MEDS: ONDANSETRON 4 MG ORAL DISINTEGRATING TAB (Q0162 PER 1MG) PO PRN (20:40)
[2019-03-20] MEDS: MORPHINE 2 MG/ML 1ML VIAL (J2270) IV PRN ×3 (01:52→12:36)
[2019-03-20] MEDS: ONDANSETRON 4 MG ORAL DISINTEGRATING TAB (Q0162 PER 1MG) PO PRN ×2 (01:52→05:46)
[2019-03-20 04:00] VITALS: BP 126/68
[2019-03-20] MEDS: METOCLOPRAMIDE 10 MG TAB PO SCH ×3 (09:22→16:50)
[2019-03-20] MEDS: GABAPENTIN 400 MG CAP PO SCH (09:22)
[2019-03-20] MEDS: PANTOPRAZOLE 40MG INJ (PROTONIX) (C9113) IV SCH (09:23)
[2019-03-20] MEDS ORDERED: E-Z-PAQUE 96% w/w SUSP 176GM BTL As Ordered ONE (09:33)
[2019-03-20] MEDS ORDERED: E-Z-HD 98% w/w 340GM SUSP BTL As Ordered ONE (09:34)
[2019-03-20] MEDS ORDERED: E-Z-GAS II EFFERVESCENT PACKET (SODIUM BICARB./CITRIC ACID/SIMETHICONE) As Ordered ONE (09:34)
[2019-03-20] MEDS: NS 1,000 ML IV SCH (12:35)
[2019-03-20 13:40] LABS: BASO % 0.5 % (0.0-1.0); EOS # 0.1 10^3/uL (0.0-0.5); EOS % 0.8 % (0.0-3.0); HEMATOCRIT 44.6 % (42.0-52.0); HEMOGLOBIN 14.6 g/dl (13.5-17.5); LYMPH # 1.6 10^3/uL (1.5-5.0); LYMPH % 21.7 % (24.0-44.0); MEAN CORPUSCULAR HEMOGLOBIN 30.4 pg (27.0-33.0); MEAN CORPUSCULAR HGB CONC 32.7 g/dl (32.0-36.5); MEAN CORPUSCULAR VOLUME 92.7 fl (80.0-96.0); MONO # 0.4 10^3/uL (0.0-0.8); MONO % 5.8 % (0.0-5.0); NEUTROPHILS # 5.2 10^3/uL (1.5-8.5); NEUTROPHILS % 70.9 % (36.0-66.0); PLATELET COUNT, AUTOMATED 137 10^3/uL (150-450); RED BLOOD COUNT 4.81 10^6/uL (4.30-6.10); WHITE BLOOD COUNT 7.3 10^3/uL (4.0-10.0)
[2019-03-20 14:00] LABS: ALBUMIN 3.7 GM/DL (3.2-5.2); ALT/SGPT 14 U/L (12-78); BILIRUBIN,TOTAL 0.7 MG/DL (0.2-1.0); BLOOD UREA NITROGEN 6 MG/DL (7-18); CALCIUM LEVEL 8.6 MG/DL (8.5-10.1); CARBON DIOXIDE LEVEL 26 MEQ/L (21-32); CHLORIDE LEVEL 109 MEQ/L (98-107); CREATININE FOR GFR 0.82 MG/DL (0.70-1.30); GLOMERULAR FILTRATION RATE > 60.0 (>60); GLUCOSE, FASTING 132 MG/DL (70-100); POTASSIUM SERUM 3.9 MEQ/L (3.5-5.1); SODIUM LEVEL 141 MEQ/L (136-145); TOTAL PROTEIN 6.6 GM/DL (6.4-8.2)
[2019-03-20 14:17] VITALS: BP 147/83
--- NOTE | 2019-03-20 15:58 | IPNPDOC ---
Subjective Date Seen The patient was seen on 03/20/19. Subjective Chief Complaint/HPI persistent epigastric pain, but wishes to advance diet Constitutional: Denies: Chills Eyes: Denies: Pain ENT: Denies: Head Aches Skin: Denies: Rash Pulmonary: Denies: Dyspnea, Cough Cardiovascular: Denies: Chest Pain Gastrointestinal: Reports: Nausea; Denies: Vomiting Genitourinary: Denies: Dysuria, Frequency Objective Physical Examination General Exam: Positive: Alert; Negative: Cooperative ENT Exam: Positive: Mucous membr. moist/pink Neck Exam: Positive: Supple Chest Exam: Positive: Clear to auscultation Heart Exam: Positive: Rate Normal Telemetry: Positive: No significant arrhythmia Abdomen Exam: Positive: Normal bowel sounds, Tenderness (epigastric area); Negative: Hepatospenomegaly, Mass Extremity Exam: Negative: Edema Skin Exam: Positive: Nl turgor and temperature Neuro Exam: Positive: Normal Gait, Strength at 5/5 X4 ext Psych Exam: Positive: Mental status NL Assessment /Plan Problems (1) Epigastric abdominal pain Status: Acute Response to Treatment: Stable Discussed With: Nurse, Patient Problem Specific Plan: Monitor Clinically, Repeat Labs Problem Text: recurrent flares c abdominal pain/anorexia/dehydration/PANKAJ, favor 2 chronic pancreatitis +/- biliary dyskinesia given sludge and low gb EF +/- cannabis hyperemesis syndrome (lipase has NEVER bumped during flares) has been on low fat diet c improved albeit persistent abdominal pain 03/20 AF, WBC 7.3, normal LFTs, but lactate 3.3; ADT-LOW fat diet-patient states he is going to leave no matter what anyways 03/18 lipase 107 03/16 CT AP NAD 03/16 gb US "minimal" sludge 12/11 HIDA: Normal hepatobiliary scan and borderline low gallbladder ejection fraction (31%) from last admission: favors at least partially gastroparesis given worst sx upon awakening 12/06 increase to 10 IV q6H, change panto 40 QD to IV BID 12/05 could not tolerate GES; emperically + meto 5 IV q6H to odan 8 IV q6Hprn c improvement states using THC since ~07/2018 to help c appetite, but has had chronic N/abdominal pain 15Y +; therefore, not cw [facility] tc outpx ERCP (ho biliary stent at [facility] which he states he dislodged hours p procedure 2 vomiting no benefit from promethazine 12/04/18 MRCP: No gallstones identified and no evidence of choledocholithiasis. No biliary dilatation. No definite stricture of the common bile duct. 07/[address] Kaiser: .mild chronic gastritis, normal SBB (2) Marijuana abuse Status: Chronic Discussed With: Patient Problem Specific Plan: Monitor Clinically, Repeat Labs Problem Text: +/- cannabis hyperemesis syndrome Contingency: medical THC \\ 12/07/18 urine tox: Carboxy-THC 234 ng/mg creat Carboxy-THC is a metabolite of tetrahydrocannabinol (THC). Source of THC is most commonly illicit, but THC is also present in a scheduled prescription medication. O-Desmethyltramadol 96 ng/mg creat O-desmethyltramadol is an expected metabolite of tramadol. Source of tramadol is a prescription medication. Gabapentin PRESENT (3) Chronic pancreatitis Status: Chronic Problem Text: states vomited c pancrelipase low dose take c food in past 03/20 trypsinogen, fecal elastase P 02/02/19 established c [facility] GI-considering celiac axis block on collins 600 TID (Bolla) for abdominal pain (4) GERD (gastroesophageal reflux disease) Status: Chronic Problem Text: Continue HD panto 40 BID, famo 40 QHS Plan/VTE VTE Prophylaxis Ordered?: No (Enc OOB, ambulation. ) VS, I&O, 24H, Fishbone Vital Signs/I&O Vital Signs Date Time Temp Pulse Resp B/P (MAP) Pulse Ox O2 Delivery O2 Flow Rate FiO2 03/20/19 14:17 98.6 55 18 147/83 (104) 99 Room Air I&O- Last 24 Hours up to 6 AM 03/20/19 06:00 Intake Total 3140 ml Balance 3140 ml Laboratory Data 24H LABS Laboratory Tests 2 03/20/19 13:29: Immature Granulocyte % (Auto) 0.3, Neutrophils (%) (Auto) 70.9H, Lymphocytes (%) (Auto) 21.7L, Monocytes (%) (Auto) 5.8H, Eosinophils (%) (Auto) 0.8, Basophils (%) (Auto) 0.5, Neutrophils # (Auto) 5.2, Lymphocytes # (Auto) 1.6, Monocytes # (Auto) 0.4, Eosinophils # (Auto) 0.1, Basophils # (Auto) 0.0, Nucleated Red Blood Cells % (auto) 0.0, Anion Gap 6L, Glomerular Filtration Rate > 60.0, Lactic Acid Level 3.3*H, Calcium Level 8.6, Total Bilirubin 0.7, Aspartate Amino Transf (AST/SGOT) 13, Alanine Aminotransferase (ALT/SGPT) 14, Alkaline Phosphatase 76, Total Protein 6.6, Albumin 3.7, Albumin/Globulin Ratio 1.28 CBC/BMP Laboratory Tests 03/20/19 13:29 Gurpreet Bashir M.D. Mar 20, 2019 15:58
[2019-03-20] MEDS ORDERED: GABAPENTIN 300 MG CAP PO SCH (16:00)
[2019-03-20 16:50] LABS: C REACTIVE PROTEIN QUANTITATIV < 0.30 MG/DL (0.00-0.30)
--- NOTE | 2019-03-20 17:32 | REP ---
UPPER GI AIR CONTRAST AND SMALL BOWEL FOLLOW THROUGH The procedure was performed under the direct supervision of Dr. Braden. The images were reviewed with Dr. Braden The tmd teacher assistant film shows no organomegaly or pathological masses. The intestinal gas pattern is non-specific. There are vascular calcifications identified. There are degenerative changes of the spine. Liquid barium and gas producing crystals were given in the erect position as well as liquid barium in the prone oblique position in order to perform a double contrast upper GI examination. Additionally liquid barium was given at the end of the examination in order to perform a small bowel follow through. The oral and pharyngeal stages of deglutition are unremarkable. Esophageal transport is prompt and efficient and there is no esophagitis, stricture, mucosal ring or hiatal hernia. Gastroesophageal reflux is not demonstrated on this examination. The stomach kan are normally outlined . The rugal folds are smooth and regular. There is no gastritis neoplasm or ulcer disease. There are thickened folds in the duodenum which likely represent duodenitis. There is no bhaskar ulcer identified. The visualized portion of the proximal small bowel appears normal in course and caliber. The barium column was followed through the small bowel to the level of the terminal ileum. Small bowel transit time is approximately 90 minutes . During fluoroscopy gentle palpation shows all loops are freely movable and pliable. There are no fixed or angulated loops. The small bowel mucosal pattern is normal in course and caliber. There is no transition to suggest a partial small-bowel obstruction. Spot filming of the terminal ileum shows it to be unremarkable. Impression: There are thickened folds in the duodenum which likely represent duodenitis. There is no bhaskar ulcer identified. Otherwise unremarkable double contrast upper GI and small bowel follow-through examination. 4.1 minutes of fluoro time was utilized for this procedure. Electronically Signed by RODO Bates 03/20/2019 04:44 P Electronically Signed by Harvey Braden MD 03/20/2019 05:23 P
== END 2019-03-20 19:20 | disposition home or self-care (01) ==
LOC: EDBD 12:16 → M ED 12:16 → M ED INP 12:17 → M MS4PR 20:10 → M MSPAV 03-20 14:08
PROVIDERS: ADMIT Internal Medicine; ATTEND Family Medicine
DX: R10.13 Epigastric pain (principal); F12.10 Cannabis abuse, uncomplicated; K86.1 Other chronic pancreatitis; K21.9 Gastro-esophageal reflux disease without esophagitis; I10 Essential (primary) hypertension; Z79.899 Other long term (current) drug therapy; Z88.8 Allergy status to other drugs, medicaments and biological substances; F17.218 Nicotine dependence, cigarettes, with other nicotine-induced disorders
CPT/HCPCS: 36415; 74021; 74245; 80047; 80048; 80053; 80076; 81001; 82150; 83519; 83605; 83690; 85025; 86140; 93041; 96361; 96365; 96375; 96376; 99285; C9113; J1630; J2270; Q0162

== ENCOUNTER 2019-04-20 08:14 | Inpatient (IN) | payer MEDICAID, OTHER ==
[~2019-04-20] VITALS: Ht 172.7 cm; Wt 55.8 kg
[2019-04-20] MEDS ORDERED: NS 1,000 ML IV ONE (09:00)
[2019-04-20] MEDS ORDERED: METOCLOPRAMIDE INJ 10MG/2ML VIAL (J2765) IV ONE (09:00)
[2019-04-20] MEDS ORDERED: KETOROLAC 30 MG/ML VIAL (J1885) IV ONE (09:00)
[2019-04-20 09:38] LABS: BASO # 0.1 10^3/uL (0.0-0.2); BASO % 0.5 % (0.0-1.0); EOS % 0.1 % (0.0-3.0); HEMATOCRIT 57.4 % (42.0-52.0); HEMOGLOBIN 19.1 g/dl (13.5-17.5); LYMPH # 1.5 10^3/uL (1.5-5.0); LYMPH % 10.2 % (24.0-44.0); MEAN CORPUSCULAR HEMOGLOBIN 29.8 pg (27.0-33.0); MEAN CORPUSCULAR HGB CONC 33.3 g/dl (32.0-36.5); MEAN CORPUSCULAR VOLUME 89.7 fl (80.0-96.0); MONO # 0.6 10^3/uL (0.0-0.8); MONO % 4.3 % (0.0-5.0); NEUTROPHILS # 12.3 10^3/uL (1.5-8.5); NEUTROPHILS % 84.3 % (36.0-66.0); PLATELET COUNT, AUTOMATED 262 10^3/uL (150-450); WHITE BLOOD COUNT 14.6 10^3/uL (4.0-10.0)
[2019-04-20 09:50] LABS: ALBUMIN 5.1 GM/DL (3.2-5.2); BILIRUBIN,DIRECT 0.2 MG/DL (0.0-0.2); BILIRUBIN,TOTAL 0.9 MG/DL (0.2-1.0); CALCIUM LEVEL 10.5 MG/DL (8.5-10.1); CREATININE FOR GFR 1.36 MG/DL (0.70-1.30); GLOMERULAR FILTRATION RATE 59.1 (>56); POTASSIUM SERUM 4.5 MEQ/L (3.5-5.1); TOTAL PROTEIN 9.6 GM/DL (6.4-8.2)
[2019-04-20] MEDS ORDERED: ONDANSETRON 4MG/2ML VIAL (J2405) IV ONE (10:15)
[2019-04-20] MEDS ORDERED: ACETAMINOPHEN 500 MG TAB PO ONE (10:30)
--- NOTE | 2019-04-20 10:54 | REP ---
CHEST X-RAY: Two views. HISTORY: Diffuse abdominal pain. Vomiting. COMPARISON CHEST X-RAY: March 18, 2019. July 20, 2016 study is also reviewed. FINDINGS: There are calcified granulomas noted, one in each upper lobe, unchanged from July 20 2016. The lungs are otherwise well inflated and clear. The pleural angles are sharp. Heart size is normal. Pulmonary vasculature is not increased. No significant bony abnormality. IMPRESSION: No acute disease. Old granulomatous changes. Electronically Signed by Harvey Braden MD 04/20/2019 12:15 P
--- NOTE | 2019-04-20 10:56 | REP ---
KUB: Single view. HISTORY: Diffuse abdomen pain. Vomiting. COMPARISON: March 18, 2019. FINDINGS: Bowel gas pattern shows retained diverticular barium along the descending colon and sigmoid colon consistent with left colonic diverticulosis. Bowel gas pattern is otherwise normal. No small or large bowel dilation is seen. There is some vascular calcification visible in the pelvis. Degenerative disc changes are noted in the upper lumbar spine at L1-2 and L2-3 and in the lower thoracic spine levels. No bony destructive lesion is appreciated. IMPRESSION: Retained diverticular barium left colon consistent with the left colonic diverticulosis. No evidence of bowel obstruction or ileus. Vascular calcification. Otherwise negative. Electronically Signed by Harvey Braden MD 04/20/2019 12:15 P
[2019-04-20] MEDS ORDERED: KETAMINE HCL IV ONE (12:00)
[2019-04-20] MEDS ORDERED: NS IV ONE (12:00)
[2019-04-20] MEDS ORDERED: GABA600T4 PO (12:19)
[2019-04-20] MEDS ORDERED: MORPHINE 4 MG/ML 1ML VIAL/SYRINGE (J2270) IV PRN (12:45)
[2019-04-20] MEDS: LR 1,000 ML IV SCH ×2 (13:01→20:33)
[2019-04-20 13:42] VITALS: BP 136/95
--- NOTE | 2019-04-20 13:53 | HPEPDOC ---
General Date of Admission Apr 20, 2019 at 12:32 Date of Service: Apr 20, 2019 Chief Complaint The patient is a 49-year-old male admitted with a reason for visit of Chronic Pancreatitis. Source: Patient, RN/, Old records History of Present Illness 49 year old male with PMH of Chronic pancreatitis, hypertension, active smoker, H/o alcohol abuse quit 10 years ago , gastritis, hypertension, diverticulosis, chronic abdominal pain, possible cannabis hyperemesis syndrome, GB dyskinesia came to the ED with abdominal pain, nausea and vomiting for the past 1 weeks . Unable to keep any food down , vomited innumerable times. Now with severe epigastric pain with radiation to the back 10/10 in intensity constantly present sharp throbbing in nature associated with dry heaves at present. He has been passing flatus and had a normal bowel movement today. Patient's lipase is not e levated. Xray abdomen did not show any acute pathology. Patient has had innumerable CT scans of the abdomen in the past and last one was during his last admission on 03/16/19 without any acute abnormality. Ths time CT abdomen was not repeated as clinically he did not have any acute abdominal findings. Patient is admitted for a flare of chronic pancreatitis vs marijuana hyperemesis syndrome. Home Medications Scheduled Famotidine (Famotidine) 40 Mg Tablet, 40 MG PO QHS, (Reported) Gabapentin (Gabapentin) 600 Mg Tablet, 600 MG PO TID, (Reported) Metoclopramide HCl (Metoclopramide HCl) 10 Mg Tablet, 10 MG PO ACHS, (Reported) Pantoprazole Sodium (Pantoprazole Sodium) 40 Mg Tablet.dr, 40 MG PO DAILY, (Reported) Scheduled PRN Ondansetron (Ondansetron Odt) 4 Mg Tab.rapdis, 4 MG PO Q4H PRN for NAUSEA OR VOMITING, (Reported) Allergies Coded Allergies: ketorolac (Verified Adverse Reaction, Mild, NAUSEA, 12/03/18) Past Medical History Medical History Chronic pancreatitis, hypertension, active smoker, H/o alcohol abuse quit 10 y ears ago , gastritis, diverticulosis, chronic abdominal pain, possible canabis hyperemesis syndrome, GB dyskinesia. Surgical History 1. ERCP with pancreatic shunt. 2. Sphincterotomy with ERCP in 2007. 3. EGD and colonoscopy in 2014. 4. Another EGD in 2018. Family History Significant Family History: COPD (mother) liver cirrhosis from alcohol Father Social History * Smoker: current smoker Alcohol: sober Drugs: marijuana (every 3 days) A-FIB/CHADSVASC A-FIB History Current/History of A-Fib/PAF?: No Review of Systems Constitutional: Denies: Chills, Fever, Night Sweats Eyes: Denies: Pain, Vision change ENT: Denies: Head Aches, Ear Pain, Dysphagia Skin: Denies: Rash, Lesions, Breakdown Pulmonary: Denies: Dyspnea, Cough Cardiovascular: Denies: Chest Pain, Palpitations, Orthopnea, Paroxysmal Noc. Dyspnea, Lt Headedness Gastrointestinal: Reports: Nausea, Vomiting, Abdominal Pain Genitourinary: Denies: Dysuria, Frequency, Incontinence, Retention Hematologic: Denies: Bruising, Bleeding Excessively Musculoskeletal: Denies: Neck Pain, Back Pain, Joint Pain, Muscle Pain, Spasms Neurological: Denies: Weakness, Numbness, Change in speech, Confusion Physical Examination General Exam: Positive: Alert, Cooperative, No Acute Distress Eye Exam: Positive: PERRLA, Conjunctiva & lids normal, EOMI; Negative: Sclera icteric ENT Exam: Positive: Atraumatic, Mucous membr. moist/pink, Pharynx Normal Neck Exam: Positive: Supple; Negative: JVD, thyromegaly Chest Exam: Positive: Clear to auscultation, Normal air movement Heart Exam: Positive: Rate Normal, Regular Rhythm, Normal S1, Normal S2; Negative: Murmurs, Rubs Abdomen Exam: Positive: BS Hypoactive, Soft, Tenderness (in the epigastrium), Other (No rebound, guarding or rigidity) Extremity Exam: Positive: Normal pulses; Negative: Clubbing, Cyanosis, Edema Skin Exam: Positive: Nl turgor and temperature; Negative: Breakdown, Lesion Neuro Exam: Positive: Normal Gait, Normal Speech, Cranial Nerves 3-12 NL, Reflexes 2+ Psych Exam: Positive: Memory Intact, Oriented x 3 Vital Signs Vital Signs Date Time Temp Pulse Resp B/P (MAP) Pulse Ox O2 Delivery O2 Flow Rate FiO2 04/20/19 11:46 97.1 72 19 156/100 (118) 100 Room Air Laboratory Data Labs 24H Laboratory Tests 2 04/20/19 09:13: Immature Granulocyte % (Auto) 0.6, Neutrophils (%) (Auto) 84.3H, Lymphocytes (%) (Auto) 10.2L, Monocytes (%) (Auto) 4.3, Eosinophils (%) (Auto) 0.1, Basophils (%) (Auto) 0.5, Neutrophils # (Auto) 12.3H, Lymphocytes # (Auto) 1.5, Monocytes # (Auto) 0.6, Eosinophils # (Auto) 0.0, Basophils # (Auto) 0.1, Nucleated Red Blood Cells % (auto) 0.0, Anion Gap 9, Glomerular Filtration Rate 59.1, Calcium Level 10.5H, Total Bilirubin 0.9, Direct Bilirubin 0.2, Aspartate Amino Transf (AST/SGOT) 12, Alanine Aminotransferase (ALT/SGPT) 19, Alkaline Phosphatase 139H, Total Protein 9.6H, Albumin 5.1, Albumin/Globulin Ratio 1.13, Amylase Level 57, Lipase 88 CBC/BMP Laboratory Tests 04/20/19 09:13 Assessment/Plan 49 year old male with PMH of Chronic pancreatitis, hypertension, active smoker, H/o alcohol abuse quit 10 years ago , gastritis, diverticulosis, chronic abdominal pain, possible cannabis hyperemesis syndrome, GB dyskinesia came to the ED with abdominal pain, nausea and vomiting for the past 1 weeks . Unable to keep any food down , vomited innumerable times. Now with severe epigastric pain with radiation to the back 10/10 in intensity constantly present sharp throbbing in nature associated with dry heaves at present. Patient's lipase is not elevated. Xray abdomen did not show any acute pathology. Patient has had innumerable CT scans of the abdomen in the past and last one was during his last admission on 03/16/19 without any acute abnormality. Ths time CT abdomen was not repeated as clinically he did not have any acute abdominal findings. Patient is admitted for a flare of chronic pancreatitis vs marijuana hyperemesis syndrome. Chronic pancreatitis flare Vs marijuana hyperemesis syndrome will give IVF, antiemetics, morphine, clear liquids continue pantoprazole start on creon. would get a gastric emptying study tomorrow Hypercalcemia probablly due to dehydration will recheck after hydration PANKAJ due to dehydration will continue IVF Polycythemia likely secondary due to smoking and dehydration will recheck after hydration. Hypertension not on any meds at home Bp will probably be better controlled after pain control. Plan / VTE VTE Prophylaxis Ordered?: Yes CRYSTAL TRAN MD Apr 20, 2019 13:53
[2019-04-20] MEDS: PROCHLORPERAZINE 10 MG/2 ML VIAL (J0780) IV PRN (14:17)
[2019-04-20] MEDS: MORPHINE 4 MG/ML 1ML VIAL/SYRINGE (J2270) IV PRN ×3 (14:18→23:14)
[2019-04-20] MEDS: CREON-24 CAPSULE PO SCH (17:04)
[2019-04-20] MEDS: ONDANSETRON 4MG/2ML VIAL (J2405) IV SCH ×2 (17:04→23:13)
[2019-04-20] MEDS: GABAPENTIN 300 MG CAP PO SCH ×2 (17:04→22:12)
[2019-04-20 22:00] VITALS: BP 139/89
[2019-04-20] MEDS: HEPARIN SOD (PORCINE) 5000 UNITS/ML VIAL SC SCH (22:12)
[2019-04-20] MEDS: PANTOPRAZOLE 40MG INJ (PROTONIX) (C9113) IV SCH (22:12)
[2019-04-21] MEDS: LR 1,000 ML IV SCH ×3 (03:03→18:53)
[2019-04-21] MEDS: MORPHINE 4 MG/ML 1ML VIAL/SYRINGE (J2270) IV PRN ×5 (03:03→22:04)
[2019-04-21 06:00] VITALS: BP 129/88
[2019-04-21] MEDS: ONDANSETRON 4MG/2ML VIAL (J2405) IV SCH ×4 (07:01→23:12)
[2019-04-21] MEDS: CREON-24 CAPSULE PO SCH ×2 (08:00→12:16)
[2019-04-21] MEDS: PANTOPRAZOLE 40MG INJ (PROTONIX) (C9113) IV SCH ×2 (08:28→21:23)
[2019-04-21] MEDS: HEPARIN SOD (PORCINE) 5000 UNITS/ML VIAL SC SCH ×2 (08:28→21:24)
[2019-04-21] MEDS: GABAPENTIN 300 MG CAP PO SCH ×3 (08:28→21:24)
[2019-04-21] MEDS: PROCHLORPERAZINE 10 MG/2 ML VIAL (J0780) IV PRN (10:07)
--- NOTE | 2019-04-21 12:39 | REP ---
NUCLEAR GASTRIC EMPTYING SCAN: Following the oral administration of 1.10 millicuries technetium 99m sulfur colloid in two scrambled eggs in 6 ounces of water, multiple images of the upper abdomen performed in the anterior and posterior projections. Gastric activity is measured. At the end of 90 minutes, 24% of the ingested activity has emptied from the stomach. The t-1/2 is calculated to be 181 minutes, which is above the normal value of 90 minutes. IMPRESSION: Delayed gastric emptying. Electronically Signed by Scotty Jones MD 04/24/2019 05:11 P
[2019-04-21 14:00] VITALS: BP 105/63
[2019-04-21 14:57] LABS: HEMATOCRIT 41.2 % (42.0-52.0); MEAN CORPUSCULAR HEMOGLOBIN 30.1 pg (27.0-33.0); MEAN CORPUSCULAR HGB CONC 32.5 g/dl (32.0-36.5); MEAN CORPUSCULAR VOLUME 92.6 fl (80.0-96.0); PLATELET COUNT, AUTOMATED 154 10^3/uL (150-450); RED BLOOD COUNT 4.45 10^6/uL (4.30-6.10); WHITE BLOOD COUNT 8.5 10^3/uL (4.0-10.0)
[2019-04-21 15:03] LABS: HEMOGLOBIN 13.4 g/dl (13.5-17.5)
[2019-04-21 15:15] LABS: ALBUMIN 3.3 GM/DL (3.2-5.2); ALT/SGPT 13 U/L (12-78); BILIRUBIN,TOTAL 0.6 MG/DL (0.2-1.0); BLOOD UREA NITROGEN 15 MG/DL (7-18); CALCIUM LEVEL 8.1 MG/DL (8.5-10.1); CARBON DIOXIDE LEVEL 30 MEQ/L (21-32); CHLORIDE LEVEL 107 MEQ/L (98-107); CREATININE FOR GFR 0.76 MG/DL (0.70-1.30); GLOMERULAR FILTRATION RATE > 60.0 (>56); GLUCOSE, FASTING 86 MG/DL (70-100); POTASSIUM SERUM 3.8 MEQ/L (3.5-5.1); SODIUM LEVEL 140 MEQ/L (136-145); TOTAL PROTEIN 5.8 GM/DL (6.4-8.2)
[2019-04-21 22:00] VITALS: BP 113/68
[2019-04-22] MEDS: LR 1,000 ML IV SCH ×2 (01:56→08:35)
[2019-04-22] MEDS: MORPHINE 4 MG/ML 1ML VIAL/SYRINGE (J2270) IV PRN ×2 (02:05→06:08)
--- NOTE | 2019-04-22 02:41 | IPNPDOC ---
Subjective Date Seen The patient was seen on 04/21/19. Subjective Chief Complaint/HPI He complains of abdominal discomfort, improving. He thinks that he might be able to tolerate more than clear liquids. He also asks to stop Creon, states that it has made him nauseous in the past. He has an upcoming appt with GI in a week, reports that he canceled his last appt. Constitutional: Denies: Chills, Fever ENT: Denies: Head Aches Skin: Denies: Rash Pulmonary: Denies: Dyspnea, Cough Cardiovascular: Denies: Chest Pain Gastrointestinal: Reports: Nausea, Abdominal Pain; Denies: Vomiting Psych: Reports: Mood Normal Objective Physical Examination General Exam: Positive: Alert, Cooperative, No Acute Distress Eye Exam: Positive: PERRLA, Conjunctiva & lids normal, EOMI; Negative: Sclera icteric ENT Exam: Positive: Atraumatic, Mucous membr. moist/pink, Pharynx Normal Neck Exam: Positive: Supple; Negative: JVD, thyromegaly Chest Exam: Positive: Clear to auscultation, Normal air movement Heart Exam: Positive: Rate Normal, Regular Rhythm, Normal S1, Normal S2; Negative: Murmurs, Rubs Abdomen Exam: Positive: BS Hypoactive, Soft, Tenderness (in the epigastrium), Other (No rebound, guarding or rigidity) Extremity Exam: Positive: Normal pulses; Negative: Clubbing, Cyanosis, Edema Skin Exam: Positive: Nl turgor and temperature; Negative: Breakdown, Lesion Neuro Exam: Positive: Normal Gait, Normal Speech, Cranial Nerves 3-12 NL, Reflexes 2+ Psych Exam: Positive: Memory Intact, Oriented x 3 Assessment /Plan Problems (1) Vomiting Status: Acute Problem Text: Improving. This is a chronic issue for him, and he has been felt to have a chronic pancreatitis; he is following up with [facility] in a week. (2) Acute renal failure Status: Acute Problem Text: Improving on today's labwork. (3) Chronic abdominal pain Status: Acute Problem Text: He is returning to his baseline function. He denies a particularly fatty meal prior to symptom onset. Plan/VTE VTE Prophylaxis Ordered?: No VTE Exclusion Mechanical Proph: Patient/Family Refusal (states the nurses have him frequently ambulating as a result) VTE Exclusion Pharmacological: Patient/Family Refusal VS, I&O, 24H, Fishbone Vital Signs/I&O Vital Signs Date Time Temp Pulse Resp B/P (MAP) Pulse Ox O2 Delivery O2 Flow Rate FiO2 04/22/19 02:05 20 04/21/19 22:00 98.0 59 113/68 (83) 96 04/20/19 23:14 Room Air I&O- Last 24 Hours up to 6 AM 04/22/19 06:00 Intake Total 3000 ml Balance 3000 ml Laboratory Data 24H LABS Laboratory Tests 2 04/21/19 14:41: Nucleated Red Blood Cells % (auto) 0.0, Anion Gap 3L, Glomerular Filtration Rate > 60.0, Calcium Level 8.1#L, Total Bilirubin 0.6, Aspartate Amino Transf (AST/SGOT) 8, Alanine Aminotransferase (ALT/SGPT) 13, Alkaline Phosphatase 78, Total Protein 5.8#L, Albumin 3.3#, Albumin/Globulin Ratio 1.32 CBC/BMP Laboratory Tests 04/21/19 14:41 MARILYN PARIS DO Apr 22, 2019 02:41
[2019-04-22 06:00] VITALS: BP 110/67
[2019-04-22] MEDS: ONDANSETRON 4MG/2ML VIAL (J2405) IV SCH (06:07)
[2019-04-22 06:22] LABS: HEMATOCRIT 38.8 % (42.0-52.0); HEMOGLOBIN 12.9 g/dl (13.5-17.5); MEAN CORPUSCULAR HEMOGLOBIN 30.3 pg (27.0-33.0); MEAN CORPUSCULAR HGB CONC 33.2 g/dl (32.0-36.5); MEAN CORPUSCULAR VOLUME 91.1 fl (80.0-96.0); PLATELET COUNT, AUTOMATED 142 10^3/uL (150-450); RED BLOOD COUNT 4.26 10^6/uL (4.30-6.10); WHITE BLOOD COUNT 7.1 10^3/uL (4.0-10.0)
[2019-04-22 06:50] LABS: ALT/SGPT 10 U/L (12-78); BILIRUBIN,TOTAL 0.5 MG/DL (0.2-1.0); BLOOD UREA NITROGEN 14 MG/DL (7-18); CARBON DIOXIDE LEVEL 31 MEQ/L (21-32); CHLORIDE LEVEL 107 MEQ/L (98-107); CREATININE FOR GFR 0.77 MG/DL (0.70-1.30); GLOMERULAR FILTRATION RATE > 60.0 (>56); GLUCOSE, FASTING 71 MG/DL (70-100); POTASSIUM SERUM 3.8 MEQ/L (3.5-5.1); SODIUM LEVEL 140 MEQ/L (136-145); TOTAL PROTEIN 5.6 GM/DL (6.4-8.2)
[2019-04-22] MEDS: PANTOPRAZOLE 40MG INJ (PROTONIX) (C9113) IV SCH (08:29)
[2019-04-22] MEDS: GABAPENTIN 300 MG CAP PO SCH (08:29)
--- NOTE | 2019-04-22 10:49 | DSES ---
DATE OF ADMISSION: 04/20/2019 DATE OF DISCHARGE: BRIEF HISTORY AND PHYSICAL: Patient is an 49-year-old patient of Dr. Lovelace with a history of chronic pancreatitis and history of alcohol abuse who quit 10 years ago, who presented to the emergency room with abdominal pain, nausea, vomiting for a week, unable to keep food down, vomited numerable times, with severe epigastric pain radiating into his back. He was having normal bowel movements. Past medical history is significant for chronic pancreatitis, follows with GI in [place]. He has hypertension. He is a smoker. History of alcohol abuse, quit 10 years ago, history of gastritis, hypertension, diverticulosis, chronic abdominal pain, possible cannabis hyperemesis syndrome, gallbladder dyskinesia. PERTINENT LABS ON ADMISSION: White count 14.6, hemoglobin 19, platelets 262,000. Sodium 135, potassium 4.5, BUN 20, creatinine 1.36, glucose 177, amylase and lipase were normal. Chest x-ray was negative. Abdominal x-ray showed retained diverticular barium left colon consistent with left colonic diverticulosis. No evidence of bowel obstruction or ileus. Vascular calcification. Otherwise negative. HOSPITAL COURSE: The patient was admitted for epigastric pain, nausea and vomiting. He was made n.p.o., placed on IV Protonix and given antiemetics as needed. He underwent a gastric emptying study on 04/21 that showed delayed gastric emptying. The patient's diet has been advanced and he is tolerating his diet on the date of discharge. No further epigastric pain, no further nausea or vomiting and he is requesting discharge home. He has an appointment to followup with his GI specialist in [place] on 04/29. In the meantime, he will be restarted on his usual Reglan for his delayed gastric emptying and antiemetics as previous to admission. He is advised to eat small frequent meals and avoid eating meals late at night. He was started on some Creon for his chronic pancreatitis but he stopped this stating this makes him nauseous. There has been some discussion in the history and physical about cannabis induced hyperemesis syndrome. I am not certain if he is continuing to use marijuana, so therefore if his chronic marijuana use is contributing to his hyperemesis the only way for that to resolve is to stop using marijuana. This has been discussed with the patient in the past. DISPOSITION: He is stable for discharge home. DIET: Low fat, small frequent meals. ACTIVITY: As tolerated. Followup with Dr. Lacy next week. Followup with his GI specialist in [place] as scheduled on 04/29. MEDICATIONS: - famotidine 40 mg at bedtime - gabapentin 600 mg three times a day - metoclopramide 10 mg a.c. and at bedtime - Zofran as needed - Protonix 40 mg daily DISCHARGE DIAGNOSES: 1. Acute renal failure, resolved. 2. Recurrent nausea and vomiting. 3. Chronic pancreatitis. 4. Delayed gastric emptying 5. Possible cannabis induced hyperemesis syndrome.
== END 2019-04-22 11:52 | disposition home or self-care (01) | DRG 282 ==
LOC: M ED 08:14 → EDBD 08:14 → M ED INP 12:32 → M MSPAV 13:42
PROVIDERS: ADMIT Internal Medicine Nephrology; ATTEND Family Medicine
DX: K86.0 Alcohol-induced chronic pancreatitis (principal); N17.9 Acute kidney failure, unspecified; E83.52 Hypercalcemia; D75.1 Secondary polycythemia; E86.0 Dehydration; I10 Essential (primary) hypertension; F17.210 Nicotine dependence, cigarettes, uncomplicated; F10.21 Alcohol dependence, in remission; K29.70 Gastritis, unspecified, without bleeding; F12.188 Cannabis abuse with other cannabis-induced disorder; K82.9 Disease of gallbladder, unspecified; Z79.899 Other long term (current) drug therapy; Z88.8 Allergy status to other drugs, medicaments and biological substances; K30 Functional dyspepsia

== ENCOUNTER 2019-06-10 00:15 | Emergency (ER) | payer OTHER ==
[~2019-06-10] VITALS: Ht 172.7 cm; Wt 61.4 kg
[~2019-06-10 00:15] MED LIST changes: +GABA600T4 PO
[2019-06-10] MEDS ORDERED: ONDANSETRON 4MG/2ML VIAL (J2405) IV ONE (01:30)
[2019-06-10 01:36] LABS: BASO # 0.1 10^3/uL (0.0-0.2); BASO % 0.5 % (0.0-1.0); EOS # 0.1 10^3/uL (0.0-0.5); EOS % 0.3 % (0.0-3.0); HEMATOCRIT 60.4 % (42.0-52.0); HEMOGLOBIN 19.9 g/dl (13.5-17.5); LYMPH # 2.2 10^3/uL (1.5-5.0); LYMPH % 12.9 % (24.0-44.0); MEAN CORPUSCULAR HEMOGLOBIN 29.3 pg (27.0-33.0); MEAN CORPUSCULAR HGB CONC 32.9 g/dl (32.0-36.5); MONO # 0.8 10^3/uL (0.0-0.8); MONO % 4.8 % (0.0-5.0); NEUTROPHILS # 13.9 10^3/uL (1.5-8.5); PLATELET COUNT, AUTOMATED 263 10^3/uL (150-450); RED BLOOD COUNT 6.79 10^6/uL (4.30-6.10); WHITE BLOOD COUNT 17.2 10^3/uL (4.0-10.0)
[2019-06-10 02:00] LABS: ALBUMIN 5.3 GM/DL (3.2-5.2); ALT/SGPT 15 U/L (12-78); BILIRUBIN,DIRECT 0.2 MG/DL (0.0-0.2); BILIRUBIN,TOTAL 0.8 MG/DL (0.2-1.0); BLOOD UREA NITROGEN 20 MG/DL (7-18); CALCIUM LEVEL 10.9 MG/DL (8.5-10.1); CARBON DIOXIDE LEVEL 26 MEQ/L (21-32); CHLORIDE LEVEL 100 MEQ/L (98-107); CREATININE FOR GFR 1.55 MG/DL (0.70-1.30); ETHYL ALCOHOL (ETHANOL) < 0.003 % (0.000-0.010); GLOMERULAR FILTRATION RATE 50.8 (>56); GLUCOSE, FASTING 180 MG/DL (70-100); LIPASE 96 U/L (73-393); POTASSIUM SERUM 3.9 MEQ/L (3.5-5.1); SODIUM LEVEL 137 MEQ/L (136-145); TOTAL PROTEIN 9.3 GM/DL (6.4-8.2)
[2019-06-10] MEDS ORDERED: GI COCKTAIL 50ML BTL(HYOSCYAMINE/MAALOX/LIDOCAINE VISCOUS)(1:3:1) PO ONE (02:15)
[2019-06-10] MEDS ORDERED: ISOVUE-370 76% 100ML VIAL (Q9967) As Ordered ONE (02:15)
[2019-06-10] MEDS ORDERED: PANTOPRAZOLE 40MG INJ (PROTONIX) (C9113) IV ONE (02:15)
[2019-06-10] MEDS ORDERED: MORPHINE 2 MG/ML 1ML VIAL (J2270) IV ONE ×2 (02:45→03:15)
[2019-06-10 03:30] VITALS: BP 174/93
[2019-06-10 03:33] LABS: CK-MB VALUE MASS < 1.0 NG/ML (<3.6); CPK CREATINE PHOSPHOKINASE 84 U/L (39-308); MB/CK RELATIVE INDEX 1.19 (< OR =4); TROPONIN I < 0.02 NG/ML (< 0.10)
[2019-06-10] MEDS ORDERED: METOCLOPRAMIDE INJ 10MG/2ML VIAL (J2765) IV ONE (03:45)
--- NOTE | 2019-06-10 04:01 | REPVR ---
PROCEDURE INFORMATION: Exam: CT Abdomen And Pelvis With Contrast Exam date and time: 06/10/2019 2:08 AM Age: 49 years old Clinical indication: Abdominal pain; Generalized; Additional info: Ap TECHNIQUE: Imaging protocol: Computed tomography of the abdomen and pelvis with intravenous contrast. Radiation optimization: All CT scans at this facility use at least one of these dose optimization techniques: automated exposure control; mA and/or kV adjustment per patient size (includes targeted exams where dose is matched to clinical indication); or iterative reconstruction. Contrast material: ISO; Contrast volume: 100 ml; Contrast route: AC; COMPARISON: CT ABD/PEL W/IV CONTRAST ONLY 03/16/2019 3:27 PM FINDINGS: Liver: Normal. No mass. Gallbladder and bile ducts: Normal. No calcified stones. No ductal dilation. Pancreas: Pancreatic duct dilation is slightly worsened since the prior exam. No obstructing calculus, mass, or signs of pancreatitis. Spleen: Normal. No splenomegaly. Adrenals: Normal. No mass. Kidneys and ureters: Normal. No hydronephrosis. Stomach and bowel: Several small metal foreign bodies are noted in the colon, some of which are colonic diverticula. Colonic diverticulosis in much of the left colon. Appendix: No evidence of appendicitis. Intraperitoneal space: Unremarkable. No free air. No significant fluid collection. Vasculature: Unremarkable. No abdominal aortic aneurysm. Lymph nodes: Unremarkable. No enlarged lymph nodes. Bladder: Unremarkable as visualized. Reproductive: Unremarkable as visualized. Bones/joints: There are advanced degenerative changes in the spine and pelvis. Soft tissues: Unremarkable. IMPRESSION: 1. Colonic diverticulosis without evidence of diverticulitis. 2. Several small metal foreign bodies in the colon. No signs of recent abdominal injury. 3. Mild pancreatic duct dilation of uncertain etiology. No pancreatic mass or signs of pancreatitis. Consider followup MRCP if clinically indicated. Electronically signed by: Placido Coello On 06/10/2019 04:01:14 AM
[2019-06-10 04:10] LABS: AMPHETAMINES LEVEL URINE NEGATIVE (NEGATIVE); BARBITURATES URINE NEGATIVE (NEGATIVE); BENZODIAZEPINES URINE NEGATIVE (NEGATIVE); CANNABINOIDS URINE POSITIVE (NEGATIVE); COCAINE METABOLITE URINE NEGATIVE (NEGATIVE); METHADONE URINE NEGATIVE (NEGATIVE); OPIATES URINE POSITIVE (NEGATIVE); PHENCYCLIDINE URINE NEGATIVE (NEGATIVE)
[2019-06-10] MEDS ORDERED: ACETAMINOPHEN 500 MG TAB PO ONE (04:30)
--- NOTE | 2019-06-10 12:33 | ED PDOC ---
Post-Departure Follow-Up dr collado faxed formal report of ct abd/p for fu Cristal Abarca MD Jun 10, 2019 12:33
== END 2019-06-10 04:35 | disposition home or self-care (01) ==
LOC: M ED 00:15
DX: F12.288 Cannabis dependence with other cannabis-induced disorder (principal); I10 Essential (primary) hypertension; J44.9 Chronic obstructive pulmonary disease, unspecified; K21.9 Gastro-esophageal reflux disease without esophagitis; F10.10 Alcohol abuse, uncomplicated; D75.1 Secondary polycythemia; Z87.19 Personal history of other diseases of the digestive system; Z96.89 Presence of other specified functional implants; F17.200 Nicotine dependence, unspecified, uncomplicated; K57.30 Diverticulosis of large intestine without perforation or abscess without bleeding; T18.4XXA Foreign body in colon, initial encounter; Y92.9 Unspecified place or not applicable; Y93.9 Activity, unspecified; Z79.899 Other long term (current) drug therapy; Z88.8 Allergy status to other drugs, medicaments and biological substances
CPT/HCPCS: 36415; 74177; 80048; 80076; 80307; 82550; 82553; 83690; 85025; 93041; 96374; 96375; 96376; 99285; C9113; G0480; J2270; J2405; J2765; Q9967

== ENCOUNTER 2019-06-12 13:24 | Inpatient (IN) | payer OTHER ==
[~2019-06-12] VITALS: Ht 172.7 cm; Wt 58.1 kg
[2019-06-12 16:40] VITALS: BP 144/79
[2019-06-12] MEDS ORDERED: PROT40IN4 IV (17:27)
[2019-06-12] MEDS ORDERED: ACET1TAB55 PO (17:27)
[2019-06-12] MEDS ORDERED: CEFT1INJ5 IV (17:27)
[2019-06-12] MEDS ORDERED: OFIR10IN IV (17:27)
[2019-06-12] MEDS ORDERED: ACETAMINOPHEN TAB 650MG DOSE (2X325MG) PO PRN (18:15)
--- NOTE | 2019-06-12 18:44 | HPEPDOC ---
[facility] Medical History & Physical Date of Admission Jun 12, 2019 Date of Service: Jun 12, 2019 Primary Care Physician: MARILYN PARIS DO Attending Physician: CRYSTAL TRAN MD History and Physical HISTORY OF PRESENT ILLNESS: Patient is a 49-year-old gentleman who presents as a transfer from [place]. where presented earlier in the day for severe epigastric abdominal pain that was attributed to possible ulcer disease. Due to [place] inability to provide patient with vocational placement specialist or surgeon for possible EGD. Patient was transferred to [facility]. Originally, it appeared the patient refused transfer to [facility] because he did not want to come here, stated that he lives in [place], he bypassed this hospital in an effort to be treated at [place]. Patient was offered an option to leave AMA from [place] or be transferred to [facility]. Patient then accepted transfer to [facility] because he did not want to receive a $9000 bill for leaving AMA, he simply accepted the transfer because he wants to be discharged from [facility] and not receive a bill for leaving AMA. Prior to patient's transfer, a CT abdomen and pelvis showed diverticulosis without diverticulitis, no evidence of pancreatitis, stable hypoattenuation in the central portion of liver, likely due to venous shunting that has been unchanged. Gallbladder ultrasound showed some sludge with the breeze in the gallbladder without calculi. No gallbladder thickening. No. Cholecystic cystic fluid. Common bile duct NL at 6mm. Prominent panc. duct at 3.2 mm. Patient had a negative UA prior to transfer, negative troponins. Prior to transfer, CPK was within normal limits, d-dimer was within normal limits, patient had an undetectable alcohol level, lipase was 23. Prior to discharge, patient had a WBC of 17, hemoglobin of 18, hemo-crit of 52.8, BMP was remarkable for low chloride, glucose of 136, with a BUN of 23, creatinine 0.8. Calcium of 10.5. On my interview patient was visibly upset. Stating that he did not want to come here. He has given enough money and blood to [facility]. He refused to provide a history, stated that he wanted to be discharged, and not be stuck with a bill for leaving AMA. I attempted to explain to patient that his transfer was due to lack of GI and surgical service at [place], and asked patient if he will like to be evaluated by surgeon or GI doctor for possible EGD. Patient refused services. He simply wanted to be left alone and discharged in peace, to avoid the bill. Based on chart review patient has a past medical history of chronic pancreatitis, hypertension, active smoker, history of alcohol abuse, gastritis, gastroparesis, diverticulosis, chronic abdominal pain, and cannabis use PAST MEDICAL HISTORY: Chronic pancreatitis, hypertension, active smoker, H/o alcohol abuse quit 10 years ago , gastritis, diverticulosis, chronic abdominal pain, possible canabis hyperemesis syndrome, GB dyskinesia. PAST SURGICAL HISTORY: 1. ERCP with pancreatic shunt. 2. Sphincterotomy with ERCP in 2007. 3. EGD and colonoscopy in 2014. 4. Another EGD in 2016, 2019. SOCIAL HISTORY: Current smoker, admits to marijuana use FAMILY HISTORY: COPD (mother) liver cirrhosis from alcohol Father ALLERGIES: Please see below. REVIEW OF SYSTEMS: Unattainable due to patient's refusal to participate in conversation. Physical exam Patient refused physical exam. However, he was observed to be resting in bed, in no significant distress, no visible edema. , Speaking in full sentences without respiratory difficulty. Answers questions appropriately HOME MEDICATIONS: Please see below. LABORATORY DATA: See below. IMAGING: CT of abdomen performed at [place] showed diverticulosis without diverticulitis, no evidence of pancreatitis, stable hypoattenuation in the central portion of liver, likely due to venous shunting that has been unchanged. Gallbladder ultrasound showed some sludge with the breeze in the gallbladder without calculi. No gallbladder thickening. No. Cholecystic cystic fluid. Common bile duct NL at 6mm. Prominent panc. duct at 3.2 mm. MICROBIOLOGY: Please see below. ASSESSMENT: Patient is a 49-year-old gentleman who presents as a transfer from [place].Where he presented earlier in the day for severe epigastric abdominal pain that was attributed to possible ulcer disease, for possible EGD by surgery or GI specialist. Patient is visibly upset for his transfer does not want to be in this hospital. He is refusing all services, refusing all labs and imaging. He simply wants to be discharged so he does not have to pay a bill for leaving AMA. PLAN: Abdominal pain, secondary to gastric ulcer disease, secondary to gastroparesis, secondary to cyclic vomiting syndrome from marijuana use, unlikely to be GI bleed to possible GI bleed. --Will make patient nothing by mouth, with maintenance IV fluids, will check patient's CBC daily, will monitor for blood in stool with fecal occult, IV Zofran when necessary for nausea, offered pain management for patient's abdominal pain, patient declined. Will restart patient's home medications for pain control (gabapentin), --Order liver Doppler flow, and a liver ultrasound to investigate for abdominal pain fort possible obstruction, possible portal shunt or ischemic issue --Will defer referral to GI, until patient is willing to accept GI evaluation. Currently patient is not willing to accept any evaluation or treatment option. ---- Patient's last upper GI endoscopy was performed by Dr. Yemi Vann, for abdominal pain, nausea and vomiting. It showed normal esophagus, with gastritis was biopsied. This was performed on 07/10/2018 Leukocytosis -Unlikely to be infectious in nature, although patient did decline. Review of systems. He did receive 1 dose of ceftriaxone at [place]. We'll continue to monitor patient's WBC. For the time being, he will not have his antibiotics restarted Gastroparesis -Hold metoclopramide due to patient's nothing by mouth status DVT --Lovenox Vital Signs Vital Signs Date Time Temp Pulse Resp B/P (MAP) Pulse Ox O2 Delivery O2 Flow Rate FiO2 06/12/19 16:40 98.2 63 20 144/79 (100) 97 Room Air Home Medications Scheduled Acetaminophen (Ofirmev) 1,000 Mg/100 Ml Vial, 1 GM IV ONCE RECEIVED AT [facility] Ceftriaxone Sodium (Ceftriaxone) 1 Gm Vial, 1 GM IV ONCE RECEIVED AT [facility] Famotidine (Famotidine) 40 Mg Tablet, 40 MG PO QHS Gabapentin (Gabapentin) 600 Mg Tablet, 600 MG PO TID Metoclopramide HCl (Metoclopramide HCl) 10 Mg Tablet, 10 MG PO ACHS Pantoprazole Sodium (Pantoprazole Sodium) 40 Mg Tablet.dr 40 MG PO DAILY Pantoprazole Sodium (Protonix IV) 40 Mg Vial, 40 MG IV ONCE RECEIVED AT [facility] Scheduled PRN Acetaminophen (Acetaminophen) 325 Mg Tablet, 650 MG PO Q6H PRN for PAIN Ondansetron (Ondansetron Odt) 4 Mg Tab.rapdis, 4 MG PO Q4H PRN for NAUSEA OR VOMITING Allergies Coded Allergies: ketorolac (Verified Adverse Reaction, Mild, NAUSEA, 06/10/19) Attending Note I personally obtained a history and interviewed the patient and reviewed his transfer papers from outside hospital and our EMR. Patient refused to be examined. I spoke with patient 's primary care physician. I have reviewed the above documentation by the resident and agree with the plan of care. TATIANNA COBIAN DO Jun 12, 2019 18:44 CRYSTAL TRAN MD Jun 15, 2019 12:12
[2019-06-12] MEDS ORDERED: NS 1,000 ML IV SCH (19:00)
[2019-06-12] MEDS ORDERED: ONDANSETRON 4MG/2ML VIAL (J2405) IV PRN (19:15)
[2019-06-12] MEDS ORDERED: PANTOPRAZOLE 40MG INJ (PROTONIX) (C9113) IV SCH (21:00)
[2019-06-12] MEDS ORDERED: GABAPENTIN 300 MG CAP PO SCH (21:00)
--- NOTE | 2019-06-13 00:54 | DS.PDOC ---
Discharge Summary General Date of Admission Jun 12, 2019 at 16:37 Date of Discharge 06/11/2019 Attending Physician: CRYSTAL TRAN MD Discharge Summary PROCEDURES PERFORMED DURING STAY: [None]. ADMITTING DIAGNOSES: 1. Abdominal pain possibly, secondary to gastric ulcer disease vs secondary to gastroparesis vs secondary to cyclic vomiting syndrome from marijuana use, unlikely to be GI blee d to possible GI bleed. 2. Leukocytosis 3. Gastroparesis DISCHARGE DIAGNOSES: 1. Abdominal pain of unclear cause 2. Leukocytosis of unclear cause 3. Gastroparesis COMPLICATIONS/CHIEF COMPLAINT: Abdominal Pain. HISTORY OF PRESENT ILLNESS: Per HPI Mr. Diana" is a 49-year-old gentleman who presents as a transfer from [place]. where presented earlier in the day for severe epigastric abdominal pain that was attributed to possible ulcer disease. Due to [place] inability to provide patient with customer account executive or surgeon for possible EGD. Patient was transferred to [facility]. Originally, it appeared the patient refused transfer to [facility] because he did not want to come here, stated that he lives in [place], he bypassed this hospital in an effort to be treated at [place]. Patient was offered an option to leave AMA from [place] or be transferred to [facility]. Patient then accepted transfer to [facility] because he did not want to receive a $9000 bill for leaving [place], he simply accepted the transfer because he wants to be discharged from [place] and not receive a bill for leaving AMA. Prior to patient's transfer, a CT abdomen and pelvis showed diverticulosis without diverticulitis, no evidence of pancreatitis, stable hypoattenuation in the central portion of liver, likely due to venous shunting that has been unchanged. Gallbladder ultrasound showed some sludge with the breeze in the gallbladder without calculi. No gallbladder thickening. No. Cholecystic cystic fluid. Common bile duct NL at 6mm. Prominent panc. duct at 3.2 mm. Patient had a negative UA prior to transfer, negative troponins. Prior to transfer, CPK was within normal limits, d-dimer was within normal limits, patient had an undetectable alcohol level, lipase was 23. Prior to discharge, patient had a WBC of 17, hemoglobin of 18, hemo-crit of 52.8, BMP was remarkable for low chloride, glucose of 136, with a BUN of 23, creatinine 0.8. Calcium of 10.5." HOSPITAL COURSE: Shortly after his admission to the medical floor, Mr. Diana decided that he like to leave [place]. He reported that he initially did not want be transferred to [place] and felt frustrated because he didn't know the cause of his abdominal pain. The risks of leaving including but not limited to worsening abdominal pain, possible perforation if he has peptic ulcer disease, and her were explained to him. He verbalized understanding and signed the AMA form. DISCHARGE MEDICATIONS: Please see below. ALLERGIES: Please see below. PHYSICAL EXAMINATION ON DISCHARGE: VITAL SIGNS: Please see below. GENERAL: Anxious EXTREMITIES: Gait normal PSYCHIATRIC EXAMINATION: Alert and oriented, able to understand and follow commands LABORATORY DATA: Please see below. IMAGING: See HPI PROGNOSIS: Guarded ACTIVITY: [As tolerated]. DISCHARGE PLAN: I instructed the patient to return to the hospital at any time if his symptoms recur. DISPOSITION: 07 Against Medical Advice. DISCHARGE CONDITION: [Stable]. TIME SPENT ON DISCHARGE: Greater than 15 minutes. Vital Signs/I&Os Vital Signs Date Time Temp Pulse Resp B/P (MAP) Pulse Ox O2 Delivery O2 Flow Rate FiO2 06/12/19 16:40 98.2 63 20 144/79 (100) 97 Room Air Discharge Medications Scheduled Acetaminophen (Ofirmev) 1,000 Mg/100 Ml Vial, 1 GM IV ONCE, (Reported) RECEIVED AT [facility] Ceftriaxone Sodium (Ceftriaxone) 1 Gm Vial, 1 GM IV ONCE, (Reported) RECEIVED AT [facility] Famotidine (Famotidine) 40 Mg Tablet, 40 MG PO QHS, (Reported) Gabapentin (Gabapentin) 600 Mg Tablet, 600 MG PO TID, (Reported) Metoclopramide HCl (Metoclopramide HCl) 10 Mg Tablet, 10 MG PO ACHS, (Reported) Pantoprazole Sodium (Pantoprazole Sodium) 40 Mg Tablet.dr, 40 MG PO DAILY, (Reported) Pantoprazole Sodium (Protonix IV) 40 Mg Vial, 40 MG IV ONCE, (Reported) RECEIVED AT [facility] Scheduled PRN Acetaminophen (Acetaminophen) 325 Mg Tablet, 650 MG PO Q6H PRN for PAIN, (Reported) Ondansetron (Ondansetron Odt) 4 Mg Tab.rapdis, 4 MG PO Q4H PRN for NAUSEA OR VOMITING, (Reported) Allergies Coded Allergies: ketorolac (Verified Adverse Reaction, Mild, NAUSEA, 06/10/19) HARPER LYONS MD Jun 13, 2019 00:54
[2019-06-13] MEDS ORDERED: ENOXAPARIN 40 MG/0.4 ML SYRINGE (J1650) SC SCH (09:00)
== END 2019-06-12 21:17 | disposition left against medical advice (07) | DRG 251 ==
LOC: M MSPAV 16:37
PROVIDERS: ADMIT Internal Medicine; ATTEND Internal Medicine
DX: R10.9 Unspecified abdominal pain (principal); K31.84 Gastroparesis; I10 Essential (primary) hypertension; D72.829 Elevated white blood cell count, unspecified; F17.200 Nicotine dependence, unspecified, uncomplicated; F10.21 Alcohol dependence, in remission; F12.21 Cannabis dependence, in remission; K21.0 Gastro-esophageal reflux disease with esophagitis; Z79.899 Other long term (current) drug therapy; Z88.8 Allergy status to other drugs, medicaments and biological substances

== ENCOUNTER → 2019-10-04 | Outpatient (CLI) | payer OTHER ==
[~2019-10-04] MED LIST changes: +ACET1TAB55 PO; +CEFT1INJ5 IV; +NEUR800T PO; +OFIR10IN IV; +PROT40IN4 IV
== END ==
LOC: M LABSMTC 10:06
PROVIDERS: ATTEND Anesthesiology
DX: Z01.812 Encounter for preprocedural laboratory examination (principal); Z11.59 Encounter for screening for other viral diseases

== ENCOUNTER 2019-10-07 08:35 | Day surgery (SDC) | payer OTHER ==
[~2019-10-07] VITALS: Ht 172.7 cm; Wt 58.5 kg
[~2019-10-07 08:35] MED LIST changes: +NS 1,000 ML IV ONE
[2019-10-07] MEDS ORDERED: LIDOCAINE 2% 100MG/5ML SDV (FOR ANES.) As Ordered ONE (10:10)
[2019-10-07] MEDS ORDERED: propofoL 200 MG/20 ML VIAL As Ordered ONE (10:10)
--- NOTE | 2019-10-07 10:15 | ROOR ---
Patient Name: Casey Diana Procedure Date: 10/07/2019 9:37 AM Date of : 1970 Age: 49 Room: [facility] Gender: Male Note Status: Finalized Procedure: Colonoscopy Indications: Abnormal CT of the GI tract Providers: Scotty Quiros DO Referring MD: Janelle TEJADA DO Requesting Provider: Medicines: Propofol per Anesthesia Complications: No immediate complications. Procedure: Pre-Anesthesia Assessment: - Prior to the procedure, a History and Physical was performed, and patient medications and allergies were reviewed. The patient is competent. The risks and benefits of the procedure and the sedation options and risks were discussed with the patient. All questions were answered and informed consent was obtained. Patient identification and proposed procedure were verified by the physician, the nurse, the anesthesiologist and the automation control technician in the endoscopy suite. Mental Status Examination: alert and oriented. Airway Examination: normal oropharyngeal airway and neck mobility. Respiratory Examination: clear to auscultation. CV Examination: normal. Prophylactic Antibiotics: The patient does not require prophylactic antibiotics. Prior Anticoagulants: The patient has taken no previous anticoagulant or antiplatelet agents. ASA Grade Assessment: III - A patient with severe systemic disease. After reviewing the risks and benefits, the patient was deemed in satisfactory condition to undergo the procedure. The anesthesia plan was to use monitored anesthesia care (MAC). Immediately prior to administration of medications, the patient was re-assessed for adequacy to receive sedatives. The heart rate, respiratory rate, oxygen saturations, blood pressure, adequacy of pulmonary ventilation, and response to care were monitored throughout the procedure. The physical status of the patient was re-assessed after the procedure. The Colonoscope was introduced through the anus and advanced to the cecum, identified by appendiceal orifice and ileocecal valve. The colonoscopy was performed without difficulty. The patient tolerated the procedure well. Findings: Multiple small and large-mouthed diverticula were found in the sigmoid colon. Internal hemorrhoids were found during retroflexion. The hemorrhoids were small and Grade II (internal hemorrhoids that prolapse but reduce spontaneously). The exam was otherwise without abnormality on direct and retroflexion views. Impression: - Diverticulosis in the sigmoid colon. - Internal hemorrhoids. - The examination was otherwise normal on direct and retroflexion views. - No specimens collected. Recommendation: - Patient has a contact number available for emergencies. The signs and symptoms of potential delayed complications were discussed with the patient. Return to normal activities tomorrow. Written discharge instructions were provided to the patient. - Repeat colonoscopy in 5-10 years for screening purposes. Scotty Quiros DO 10/07/2019 10:14:27 AM Electronically signed by Scotty Quiros DO Number of Addenda: 0 Note Initiated On: 10/07/2019 9:37 AM Estimated Blood Loss: Estimated blood loss: none.
[2019-10-07] MEDS ORDERED: ALBUTEROL SULFATE 2.5 MG/0.5 ML INH NEB SOLN As Ordered ONE (10:38)
[2019-10-07] MEDS ORDERED: ALBUTEROL SULFATE 2.5 MG/0.5 ML INH NEB SOLN INH ONE (10:45)
[2019-10-07] MEDS ORDERED: ONDANSETRON 4MG/2ML VIAL As Ordered ONE (11:12)
[2019-10-07] MEDS ORDERED: ONDANSETRON 4MG/2ML VIAL IV ONE (11:15)
[2019-10-07] MEDS ORDERED: METOCLOPRAMIDE INJ 10MG/2ML VIAL (J2765 PER 1) As Ordered ONE (11:28)
[2019-10-07] MEDS ORDERED: METOCLOPRAMIDE INJ 10MG/2ML VIAL (J2765 PER 1) IV ONE (11:30)
[2019-10-07] MEDS ORDERED: LEVALBUTEROL 1.25 MG/0.5 ML CONCENTRATE NEB As Ordered ONE (11:54)
[2019-10-07] MEDS ORDERED: LR 1,000 ML IV SCH (12:00)
[2019-10-07] MEDS ORDERED: ACETAMINOPHEN *IV* 1,000 MG IV ONE ×2 (12:00)
[2019-10-07] MEDS ORDERED: ONDANSETRON 4MG/2ML VIAL IV PRN (12:00)
[2019-10-07] MEDS ORDERED: LEVALBUTEROL 1.25 MG/0.5 ML CONCENTRATE NEB NEB ONE (12:30)
--- NOTE | 2019-10-07 12:45 | REP ---
CHEST, PORTABLE: There is no evidence of acute infiltrate. No pleural effusion is seen. The heart is normal in size. The mediastinal silhouette is unremarkable. The visualized osseous structures are intact. IMPRESSION: No acute pulmonary disease. Electronically Signed by Scotty Jones MD 10/07/2019 01:40 P
--- NOTE | 2019-10-07 12:46 | REP ---
ABDOMEN, SINGLE VIEW: Single upright AP view of the abdomen is performed. There is no evidence of free intraperitoneal air status post colonoscopy. Bowel gas pattern is normal. Mild air is seen in the stomach. The colon is not significantly distended. IMPRESSION: No evidence of free intraperitoneal air status post colonoscopy. Electronically Signed by Scotty Jones MD 10/07/2019 01:40 P
[2019-10-07 13:24] VITALS: BP 139/72
== END 2019-10-07 13:42 | disposition home or self-care (01) ==
LOC: M OPP 08:35
PROVIDERS: ATTEND Surgery
DX: K57.30 Diverticulosis of large intestine without perforation or abscess without bleeding (principal); K64.1 Second degree hemorrhoids; R93.3 Abnormal findings on diagnostic imaging of other parts of digestive tract; F17.210 Nicotine dependence, cigarettes, uncomplicated; Z79.899 Other long term (current) drug therapy; Z88.8 Allergy status to other drugs, medicaments and biological substances
CPT/HCPCS: 45378; 71045; 74018; J0131; J2405; J2765

== ENCOUNTER 2019-12-16 07:57 | Day surgery (SDC) | payer OTHER ==
[~2019-12-16 07:57] MED LIST changes: -NS 1,000 ML IV ONE; +PANT40TA29 PO; -PANT40TA3 PO; -PROC5TA PO; +PROC5TAB57 PO
[2019-12-16] MEDS ORDERED: LIDOCAINE 2% 100MG/5ML SDV (FOR ANES.) As Ordered ONE (08:20)
[2019-12-16] MEDS ORDERED: propofoL 200 MG/20 ML VIAL As Ordered ONE (08:20)
[2019-12-16] MEDS ORDERED: fentaNYL 100 MCG/2 ML INJECTION (J3010) As Ordered ONE (08:53)
--- NOTE | 2020-01-20 11:33 | ROOR ---
Patient Name: Casey Diana Procedure Date: 12/16/2019 8:51 AM Date of : 1970 Age: 49 Room: [facility] Gender: Male Note Status: Finalized Procedure: Upper GI endoscopy Indications: Heartburn Providers: Scotty Quiros DO Referring MD: Janelle TEJADA DO Requesting Provider: Medicines: Propofol per Anesthesia Complications: No immediate complications. Procedure: Pre-Anesthesia Assessment: - Prior to the procedure, a History and Physical was performed, and patient medications and allergies were reviewed. The patient is competent. The risks and benefits of the procedure and the sedation options and risks were discussed with the patient. All questions were answered and informed consent was obtained. Patient identification and proposed procedure were verified by the physician, the nurse, the anesthesiologist and the laboratory technician in the endoscopy suite. Mental Status Examination: alert and oriented. Airway Examination: normal oropharyngeal airway and neck mobility. Respiratory Examination: clear to auscultation. CV Examination: normal. Prophylactic Antibiotics: The patient does not require prophylactic antibiotics. Prior Anticoagulants: The patient has taken no previous anticoagulant or antiplatelet agents. ASA Grade Assessment: II - A patient with mild systemic disease. After reviewing the risks and benefits, the patient was deemed in satisfactory condition to undergo the procedure. The anesthesia plan was to use monitored anesthesia care (MAC). Immediately prior to administration of medications, the patient was re-assessed for adequacy to receive sedatives. The heart rate, respiratory rate, oxygen saturations, blood pressure, adequacy of pulmonary ventilation, and response to care were monitored throughout the procedure. The physical status of the patient was re-assessed after the procedure. The Endoscope was introduced through the mouth, and advanced to the third part of duodenum. The upper GI endoscopy was accomplished without difficulty. The patient tolerated the procedure well. Findings: The Z-line was irregular. Biopsies were taken with a cold forceps for histology. Estimated blood loss was minimal. The exam was otherwise without abnormality. Impression: - Z-line irregular. Biopsied. - The examination was otherwise normal. Recommendation: - Patient has a contact number available for emergencies. The signs and symptoms of potential delayed complications were discussed with the patient. Return to normal activities tomorrow. Written discharge instructions were provided to the patient. - Await pathology results. - Return to my office at appointment to be scheduled. Scotty Quiros DO 12/16/2019 9:06:08 AM Number of Addenda: 0 Note Initiated On: 12/16/2019 8:51 AM Estimated Blood Loss: Estimated blood loss was minimal.
== END 2019-12-16 12:45 | disposition home or self-care (01) ==
LOC: M OPP 07:57
PROVIDERS: ATTEND Surgery
DX: K22.8 Other specified diseases of esophagus (principal); R12 Heartburn; J44.9 Chronic obstructive pulmonary disease, unspecified; F17.210 Nicotine dependence, cigarettes, uncomplicated; Z79.899 Other long term (current) drug therapy; Z88.8 Allergy status to other drugs, medicaments and biological substances
CPT/HCPCS: 43239; 88305; J3010

== ENCOUNTER → 2020-03-16 | Outpatient (CLI) | payer OTHER ==
--- NOTE | 2020-03-16 10:49 | REP ---
INDICATION: GB POLYPS MAIN REG. COMPARISON: March 16, 2019.. TECHNIQUE: Right upper quadrant sonogram. FINDINGS: Scanning through the right upper quadrant of the abdomen demonstrates a normal sized thin walled gallbladder without evidence of stone or sonographic evidence of polyp. Common bile duct is normal measuring 0.4 cm in greatest diameter. Liver is homogeneous and normal in size. No evidence of ascites or right renal abnormality. The right kidney measures 11.0 x 7.2 x 4.9 cm. No pancreatic abnormality is observed. IMPRESSION: Negative right upper quadrant sonography. <Electronically signed by Yomi Braden > 03/16/20 [id number]
== END ==
LOC: M RAD 08:27
PROVIDERS: ATTEND Internal Medicine
DX: R10.10 Upper abdominal pain, unspecified (principal); K82.4 Cholesterolosis of gallbladder

== ENCOUNTER → 2020-03-16 | Outpatient (CLI) | payer OTHER ==
[2020-03-16 14:08] LABS: HEMATOCRIT 44.4 % (42.0-52.0); HEMOGLOBIN 14.8 g/dl (13.5-17.5); MEAN CORPUSCULAR HEMOGLOBIN 30.3 pg (27.0-33.0); MEAN CORPUSCULAR HGB CONC 33.3 g/dl (32.0-36.5); MEAN CORPUSCULAR VOLUME 90.8 fl (80.0-96.0); PLATELET COUNT, AUTOMATED 178 10^3/uL (150-450); RED BLOOD COUNT 4.89 10^6/uL (4.30-6.10)
[2020-03-16 19:27] LABS: ALBUMIN 3.6 GM/DL (3.2-5.2); ALT/SGPT 16 U/L (12-78); BILIRUBIN,TOTAL 0.3 MG/DL (0.2-1.0); BLOOD UREA NITROGEN 10 MG/DL (7-18); CALCIUM LEVEL 8.6 MG/DL (8.5-10.1); CARBON DIOXIDE LEVEL 25 MEQ/L (21-32); CHLORIDE LEVEL 108 MEQ/L (98-107); CREATININE FOR GFR 0.98 MG/DL (0.70-1.30); GLOMERULAR FILTRATION RATE > 60.0 (>56); GLUCOSE, FASTING 117 MG/DL (70-100); POTASSIUM SERUM 4.3 MEQ/L (3.5-5.1); SODIUM LEVEL 139 MEQ/L (136-145); TOTAL PROTEIN 6.3 GM/DL (6.4-8.2)
== END ==
LOC: M LABDRWAD 11:38
PROVIDERS: ATTEND Internal Medicine
DX: R10.10 Upper abdominal pain, unspecified (principal)

== ENCOUNTER → 2020-03-16 | Outpatient (CLI) | payer OTHER ==
--- NOTE | 2020-03-16 14:48 | REP ---
INDICATION: LOW BACK PAIN. COMPARISON: None. TECHNIQUE: Five views. FINDINGS: There is straightening and slight reversal of the normal lumbar lordosis. Lumbar vertebral body heights are preserved. Alignment is otherwise normal. There is no evidence of spondylolysis or spondylolisthesis. There is degenerative disc disease in the upper and mid lumbar levels, most pronounced at L1-2 and L2-3. Discogenic spurring and sclerosis is seen at these levels. Vascular calcifications noted. There is a minimal levoconvex curve in the upper lumbar spine. Sacrum and SI joints are intact IMPRESSION: Straightening and degenerative disc disease most pronounced in the upper lumbar spine. There is a levoconvex curve. No acute bony abnormality. <Electronically signed by Yomi Braden > 03/16/20 [id number]
== END ==
LOC: M ADAMS 11:35
PROVIDERS: ATTEND Family Medicine
DX: M54.5 Low back pain (principal)

== ENCOUNTER → 2020-05-09 | Outpatient (CLI) | payer OTHER ==
--- NOTE | 2020-05-09 10:56 | REPVR ---
PROCEDURE INFORMATION: Exam: MR Lumbar Spine Without Contrast. Exam date and time: 05/09/2020 8:12 AM Age: 50 years old Clinical indication: Low back pain; Additional info: Lumbar radiculopathy TECHNIQUE: Imaging protocol: Multiplanar magnetic resonance images of the lumbar spine without intravenous contrast. COMPARISON: DX SPINE LS COMPLETE 03/16/2020 11:28 AM FINDINGS: Vertebrae: There is mild reversal of the normal lumbar lordosis proximally. There is no fracture or listhesis. There is severe intervertebral disc space loss at L1/2 and L2/3, with endplate changes. Spinal cord: Normal signal. No cord compression. L1-L2: There is shallow disc bulging. There is mild facet hypertrophy. The spinal canal and neural foramina are patent. L2-L3: There is shallow disc bulging. There is mild facet hypertrophy. There is moderate right and mild left neural foraminal narrowing. L3-L4: There is diffuse disc bulging. There is moderate facet hypertrophy. There is moderate bilateral neural foraminal narrowing. L4-L5: There is shallow disc bulging with a right foraminal protrusion and annular tear. There is moderate facet hypertrophy. There is moderate bilateral neural foraminal narrowing. Disc material comes into close contact with the exiting L4 nerve roots bilaterally, right greater than left. L5-S1: There is shallow disc bulging with a prominent right foraminal component and annular tear. There is moderate facet hypertrophy. There is moderate bilateral neural foraminal narrowing. Disc material comes into close contact with the exiting right L5 nerve root. Soft tissues: Unremarkable. IMPRESSION: Degenerative disc disease and spondylosis as described. Electronically signed by: Shena Avila On 05/09/2020 10:56:43 AM
== END ==
LOC: M RAD 07:13
PROVIDERS: ATTEND Nurse Practitioner Family
DX: M54.16 Radiculopathy, lumbar region (principal)

== ENCOUNTER 2020-05-17 12:58 | Emergency (ER) | payer OTHER ==
[~2020-05-17] VITALS: Ht 172.7 cm; Wt 59.2 kg
[2020-05-17 14:12] LABS: BASO # 0.1 10^3/uL (0.0-0.2); BASO % 0.8 % (0.0-1.0); EOS # 0.1 10^3/uL (0.0-0.5); EOS % 0.9 % (0.0-3.0); HEMATOCRIT 52.2 % (42.0-52.0); HEMOGLOBIN 17.4 g/dl (13.5-17.5); LYMPH % 19.2 % (24.0-44.0); MEAN CORPUSCULAR HGB CONC 33.3 g/dl (32.0-36.5); MONO # 0.8 10^3/uL (0.0-0.8); MONO % 7.7 % (0.0-5.0); NEUTROPHILS # 7.2 10^3/uL (1.5-8.5); PLATELET COUNT, AUTOMATED 203 10^3/uL (150-450); WHITE BLOOD COUNT 10.2 10^3/uL (4.0-10.0)
[2020-05-17 14:13] LABS: BILIRUBIN, URINE MANUAL NEGATIVE (NEGATIVE); GLUCOSE, URINE (UA) MANUAL NEGATIVE (NEGATIVE); KETONE, URINE MANUAL NEGATIVE (NEGATIVE); UROBILINOGEN, URINE MANUAL NORMAL (NORMAL)
[2020-05-17 14:26] LABS: BACTERIA, URINE SMALL AMOUNT; MUCUS, URINE MOD AMOUNT (NEGATIVE); SQUAMOUS EPITHELIAL CELL URINE MOD AMOUNT /hpf (SMALL AMT); TRANSITIONAL EPI CELLS, URINE SMALL AMOUNT /hpf
[2020-05-17 14:40] LABS: ALBUMIN 4.3 GM/DL (3.2-5.2); ALT/SGPT 15 U/L (12-78); BILIRUBIN,DIRECT 0.1 MG/DL (0.0-0.2); BILIRUBIN,TOTAL 0.5 MG/DL (0.2-1.0); BLOOD UREA NITROGEN 19 MG/DL (7-18); CALCIUM LEVEL 9.7 MG/DL (8.5-10.1); CARBON DIOXIDE LEVEL 29 MEQ/L (21-32); CHLORIDE LEVEL 100 MEQ/L (98-107); CREATININE FOR GFR 1.19 MG/DL (0.70-1.30); GLOMERULAR FILTRATION RATE > 60.0 (>56); GLUCOSE, FASTING 104 MG/DL (70-100); LIPASE 127 U/L (73-393); SODIUM LEVEL 133 MEQ/L (136-145); TOTAL PROTEIN 7.8 GM/DL (6.4-8.2)
[2020-05-17 15:52] LABS: CHLAMYDIA DNA AMPLIFICATION NEGATIVE (NEGATIVE); GC DNA AMPLIFICATION NEGATIVE (NEGATIVE)
[2020-05-17] MEDS ORDERED: TIZA4TAB4 (16:34)
--- NOTE | 2020-05-17 18:07 | REPVR ---
PROCEDURE INFORMATION: Exam: CT Abdomen And Pelvis Without Contrast Exam date and time: 05/17/2020 5:27 PM Age: 50 years old Clinical indication: Abdominal pain; Generalized; Additional info: L CVA pain ? renal colic TECHNIQUE: Imaging protocol: Computed tomography of the abdomen and pelvis without contrast. Radiation optimization: All CT scans at this facility use at least one of these dose optimization techniques: automated exposure control; mA and/or kV adjustment per patient size (includes targeted exams where dose is matched to clinical indication); or iterative reconstruction. COMPARISON: CT ABD/PEL W/IV CONTRAST ONLY 06/10/2019 2:47 AM FINDINGS: Liver: Normal. No mass. Gallbladder and bile ducts: Normal. No calcified stones. No ductal dilation. Pancreas: Normal. No ductal dilation. Spleen: Normal. No splenomegaly. Adrenal glands: Normal. No mass. Kidneys and ureters: Normal. No hydronephrosis. Stomach and bowel: There is increased feces throughout the colon consistent with constipation. Abnormal thickening of the wall of the duodenal sweep extending into the proximal jejunum terminating in a focally dilated loop of proximal jejunum. Differential includes inflammation, infection, small bowel mass, internal hernia, and intussusception. Correlation with upper GI series suggested. Appendix: No evidence of appendicitis. Intraperitoneal space: Unremarkable. No free air. No significant fluid collection. Vasculature: The aortoiliac vessels demonstrate mild atherosclerotic calcification. Lymph nodes: Unremarkable. No enlarged lymph nodes. Urinary bladder: Unremarkable as visualized. Reproductive: Unremarkable as visualized. Bones/joints: Mild central spinal stenosis L3-L4 and L4-L5. Stable mild compression deformities of L1 and L2 with endplate sclerosis. The spine demonstrates mild degenerative changes. Shallow scoliosis. Soft tissues: Unremarkable. IMPRESSION: 1. There is increased feces throughout the colon consistent with constipation. 2. Abnormal thickening of the wall of the duodenal sweep extending into the proximal jejunum terminating in a focally dilated loop of proximal jejunum. Differential includes inflammation, infection, small bowel mass, internal hernia, and intussusception. Correlation with upper GI series suggested. Electronically signed by: René Miles On 05/17/2020 18:08:04 PM
[2020-05-17] MEDS ORDERED: CIPR-249 PO (18:35)
[2020-05-17] MEDS ORDERED: FLAG500T PO (18:35)
[2020-05-17] MEDS ORDERED: metroNIDAZOLE (FLAGYL) 500MG TABLET PO ONE (18:45)
[2020-05-17] MEDS ORDERED: CIPROFLOXACIN 500MG TABLET PO ONE (18:45)
[2020-05-17 18:51] VITALS: BP 114/82
--- NOTE | 2020-05-20 13:08 | ED PDOC ---
Post-Departure Follow-Up dr collado faxed formal report of ct abd/p for fu Cristal Abarca MD May 20, 2020 13:08
== END 2020-05-17 18:52 | disposition home or self-care (01) ==
LOC: M ED 12:58
DX: N39.0 Urinary tract infection, site not specified (principal); R10.9 Unspecified abdominal pain; F17.200 Nicotine dependence, unspecified, uncomplicated; Z79.899 Other long term (current) drug therapy; Z88.8 Allergy status to other drugs, medicaments and biological substances

== ENCOUNTER → 2020-05-20 | Outpatient (REF) | payer MEDICAID, OTHER ==
[~2020-05-20] MED LIST changes: +TIZA4TAB4
[2020-05-20 17:23] LABS: APPEARANCE, URINE HAZY (CLEAR); BACTERIA, URINE AUTO NEGATIVE (NEGATIVE); BILIRUBIN, URINE AUTO NEGATIVE (NEGATIVE); BLOOD, URINE BLOOD NEGATIVE (NEGATIVE); CALCIUM OXALATE CRYSTALS SMALL; COLOR, URINE YELLOW (YELLOW); GLUCOSE, URINE (UA) AUTO NEGATIVE (NEGATIVE); KETONE, URINE AUTO NEGATIVE (NEGATIVE); LEUKOCYTE ESTERASE, URINE AUTO TRACE (NEGATIVE); MUCUS, URINE SMALL (NEGATIVE); NITRITE, URINE AUTO NEGATIVE (NEGATIVE); PROTEIN, URINE AUTO 2+ mg/dL (NEGATIVE); RBC, URINE AUTO 1 /HPF (0-3); SPECIFIC GRAVITY URINE AUTO 1.028 (1.002-1.035); SQUAMOUS EPITHELIAL CELL UR AU 0 /HPF (0-6); UROBILINOGEN, URINE AUTO 0.2 mg/dL (0.0-2.0); WBC, URINE AUTO 1 /HPF (0-3)
[2020-05-20 19:13] LABS: CHLAMYDIA DNA AMPLIFICATION NEGATIVE (NEGATIVE); GC DNA AMPLIFICATION NEGATIVE (NEGATIVE)
== END ==
LOC: M SFHCADAM 14:26
PROVIDERS: ATTEND Family Medicine
DX: R30.0 Dysuria (principal)

== ENCOUNTER → 2020-07-04 | Outpatient (CLI) | payer OTHER ==
[~2020-07-04] MED LIST changes: -AMIT25TA PO; +AMIT25TA17 PO; +GABA-282 PO; -GABA-843 PO
--- NOTE | 2020-07-04 16:48 | REP ---
INDICATION: DYSPHAGIA. COMPARISON: None. TECHNIQUE: The procedure was performed by RODO Mg, under the direct supervision of Dr. Braden. The procedure was performed with Qi Armenta from speech pathology present. 5 ml aliquots of thin, pudding, mixed fruit, soft food, and hard food consistency barium was administered. FINDINGS: No aspiration or penetration was visualized during this exam. The detailed report of this examination will be provided by speech pathology. IMPRESSION: Unremarkable modified barium swallow, a detailed report will be provided by speech pathology. 1.3 minutes of fluoroscopy time was utilized for this procedure. Some fluoroscopic images are performed with last image hold technology. These images require no additional radiation <Electronically signed by Yareli Doyle > 07/04/20 1622 <Electronically signed by Yomi Braden > 07/04/20 [id number]
== END ==
LOC: M ST 15:28
PROVIDERS: ATTEND Family Medicine
DX: R13.10 Dysphagia, unspecified (principal)

== ENCOUNTER → 2020-07-05 | Outpatient (CLI) | payer OTHER ==
--- NOTE | 2020-07-05 10:14 | REP ---
INDICATION: INFLAMMATION OF SMALL INTESTINE. COMPARISON: None. TECHNIQUE: KUB was performed as a sales and marketing executive view for anticipated small-bowel follow-through upper GI exam. FINDINGS: There is high density barium in the ascending and sigmoid segments of the colon precluding optimal visualization of the small intestine. There is extensive left colonic diverticulosis and some diverticulosis of the right colon. IMPRESSION: Retained barium in the colon precludes good visualization of the small intestine. The small bowel follow-through upper GI exam is rescheduled. <Electronically signed by Yomi Braden > 07/05/20 1018
== END ==
LOC: M RAD 08:45
PROVIDERS: ATTEND Family Medicine
DX: K52.9 Noninfective gastroenteritis and colitis, unspecified (principal)

== ENCOUNTER → 2020-07-08 | Outpatient (CLI) | payer OTHER ==
[~2020-07-08] MED LIST changes: +E-Z-GAS II EFFERVESCENT PACKET (SODIUM BICARB./CITRIC ACID/SIMETHICONE) As Ordered ONE; +E-Z-HD 98% w/w 340GM SUSP BTL As Ordered ONE; +E-Z-PAQUE 96% w/w SUSP 176GM BTL As Ordered ONE
--- NOTE | 2020-07-08 17:37 | REP ---
INDICATION: INFLAMMATION OF SMALL INTESTINE. COMPARISON: None. TECHNIQUE: The procedure was performed under the direct supervision of Dr. Braden. The images were reviewed with Dr. Braden. Liquid barium and gas producing granules were given in the erect position as well as liquid barium in the prone oblique position in order to perform double-contrast upper GI examination. Additionally liquid barium was given at the end of the examination in order to perform a small-bowel follow-through. 2.3 minutes of fluoroscopy time was utilized for this procedure. FINDINGS: The oral and pharyngeal stages of deglutition are unremarkable. Esophageal transport is prompt and efficient and there is no esophagitis, stricture, mucosal ring or hiatal hernia. Gastroesophageal reflux is not demonstrated on this examination. Along the greater curvature of the stomach there are numerous gastric folds which may represent gastritis. There is no bhaskar ulcer identified. The stomach is otherwise unremarkable. The duodenal kan are normally aligned. The mucosal folds are smooth and regular. There is no duodenitis pancreatitis peptic ulcer disease or neoplasm. The visualized portion of the proximal small bowel appears normal in course and caliber. The brain column was followed through the small bowel to the level of the terminal ileum. Small bowel transit time is approximately 2 hours. During fluoroscopy gentle palpation shows all loops are freely movable and pliable. There are no fixed regulated loops. The small bowel mucosal pattern is normal in course and caliber. There is no transition to suggest a partial small bowel obstruction. Spot filming of the terminal ileum shows it to be unremarkable. IMPRESSION: There are numerous gastric folds in the greater curvature of the stomach which may represent gastritis. There is no bhaskar ulcer identified. Otherwise, unremarkable double-contrast upper GI and small-bowel follow-through examination. <Electronically signed by London Thomas > 07/08/20 1625 <Electronically signed by Yomi Braden > 07/08/20 [id number]
== END ==
LOC: M RAD 07-05 08:42
PROVIDERS: ATTEND Family Medicine
DX: K52.9 Noninfective gastroenteritis and colitis, unspecified (principal)

== ENCOUNTER 2020-07-29 13:19 | Emergency (ER) | payer OTHER ==
[~2020-07-29] VITALS: Ht 165.1 cm; Wt 61.4 kg
[~2020-07-29 13:19] MED LIST changes: -E-Z-GAS II EFFERVESCENT PACKET (SODIUM BICARB./CITRIC ACID/SIMETHICONE) As Ordered ONE; -E-Z-HD 98% w/w 340GM SUSP BTL As Ordered ONE; -E-Z-PAQUE 96% w/w SUSP 176GM BTL As Ordered ONE
[2020-07-29 14:34] LABS: BASO % 0.2 % (0.0-1.0); HEMATOCRIT 52.8 % (42.0-52.0); HEMOGLOBIN 17.7 g/dl (13.5-17.5); LYMPH # 1.2 10^3/uL (1.5-5.0); LYMPH % 7.1 % (24.0-44.0); MEAN CORPUSCULAR HEMOGLOBIN 30.4 pg (27.0-33.0); MEAN CORPUSCULAR HGB CONC 33.5 g/dl (32.0-36.5); MEAN CORPUSCULAR VOLUME 90.6 fl (80.0-96.0); MONO # 1.1 10^3/uL (0.0-0.8); MONO % 6.9 % (2.0-8.0); NEUTROPHILS # 14.1 10^3/uL (1.5-8.5); NEUTROPHILS % 85.4 % (36.0-66.0); PLATELET COUNT, AUTOMATED 209 10^3/uL (150-450); RED BLOOD COUNT 5.83 10^6/uL (4.30-6.10); WHITE BLOOD COUNT 16.5 10^3/uL (4.0-10.0)
[2020-07-29 15:02] LABS: ALBUMIN 4.9 GM/DL (3.2-5.2); BILIRUBIN,DIRECT 0.1 MG/DL (0.0-0.2); BILIRUBIN,TOTAL 0.4 MG/DL (0.2-1.0); CALCIUM LEVEL 9.4 MG/DL (8.5-10.1); CREATININE FOR GFR 3.32 MG/DL (0.70-1.30); POTASSIUM SERUM 3.7 MEQ/L (3.5-5.1); TOTAL PROTEIN 8.5 GM/DL (6.4-8.2)
[2020-07-29] MEDS ORDERED: PANTOPRAZOLE 40MG VIAL (C9113 PER 1) IV ONE (16:10)
[2020-07-29] MEDS ORDERED: NS 1,000 ML IV ONE ×2 (16:10)
[2020-07-29] MEDS ORDERED: MORPHINE 2 MG/ML 1ML VIAL (J2270) IV ONE (16:10)
[2020-07-29 19:22] LABS: HEMATOCRIT 48.4 % (42.0-52.0); HEMOGLOBIN 16.1 g/dl (13.5-17.5); MEAN CORPUSCULAR HEMOGLOBIN 30.8 pg (27.0-33.0); MEAN CORPUSCULAR HGB CONC 33.3 g/dl (32.0-36.5); MEAN CORPUSCULAR VOLUME 92.7 fl (80.0-96.0); PLATELET COUNT, AUTOMATED 184 10^3/uL (150-450); RED BLOOD COUNT 5.22 10^6/uL (4.30-6.10); WHITE BLOOD COUNT 14.8 10^3/uL (4.0-10.0)
[2020-07-29 19:56] LABS: CALCIUM LEVEL 8.1 MG/DL (8.5-10.1); CREATININE FOR GFR 2.22 MG/DL (0.70-1.30); GLOMERULAR FILTRATION RATE 33.4 (>56); POTASSIUM SERUM 4.5 MEQ/L (3.5-5.1)
[2020-07-29 20:15] VITALS: BP 115/57
[2020-07-29] MEDS ORDERED: ZOFR4TAB16 PO (20:18)
--- NOTE | 2020-07-31 08:03 | ECGEPIP ---
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
== END 2020-07-29 20:23 | disposition home or self-care (01) ==
LOC: EDBD 13:19 → M ED 13:19
DX: E86.0 Dehydration (principal); R11.2 Nausea with vomiting, unspecified; I45.10 Unspecified right bundle-branch block; F17.200 Nicotine dependence, unspecified, uncomplicated; Z79.899 Other long term (current) drug therapy; Z88.8 Allergy status to other drugs, medicaments and biological substances
CPT/HCPCS: 80048; 80076; 83690; 85025; 85027; 93005; 96361; 96374; 96375; 99284; C9113; J2270

== ENCOUNTER 2020-08-10 02:13 | Emergency (ER) | payer OTHER ==
[~2020-08-10] VITALS: Ht 172.7 cm; Wt 59.1 kg
[2020-08-10] MEDS ORDERED: NS 1,000 ML IV ONE ×2 (02:30→04:05)
[2020-08-10] MEDS ORDERED: ONDANSETRON 4MG/2ML VIAL IV ONE (02:30)
[2020-08-10] MEDS: HYDROMORPHONE HCL 0.5 MG/ 0.5 ML SYRINGE (J1170 PER 1) IV PRN ×2 (02:45→03:58)
[2020-08-10 02:58] LABS: BASO # 0.1 10^3/uL (0.0-0.2); BASO % 0.5 % (0.0-1.0); EOS # 0.1 10^3/uL (0.0-0.5); EOS % 0.4 % (0.0-3.0); HEMATOCRIT 57.1 % (42.0-52.0); HEMOGLOBIN 19.2 g/dl (13.5-17.5); LYMPH # 2.4 10^3/uL (1.5-5.0); LYMPH % 15.8 % (24.0-44.0); MEAN CORPUSCULAR HEMOGLOBIN 30.2 pg (27.0-33.0); MEAN CORPUSCULAR HGB CONC 33.6 g/dl (32.0-36.5); MEAN CORPUSCULAR VOLUME 89.9 fl (80.0-96.0); MONO # 1.2 10^3/uL (0.0-0.8); MONO % 7.6 % (2.0-8.0); NEUTROPHILS # 11.6 10^3/uL (1.5-8.5); NEUTROPHILS % 75.4 % (36.0-66.0); PLATELET COUNT, AUTOMATED 296 10^3/uL (150-450); RED BLOOD COUNT 6.35 10^6/uL (4.30-6.10); WHITE BLOOD COUNT 15.3 10^3/uL (4.0-10.0)
[2020-08-10 03:27] LABS: ALBUMIN 5.4 GM/DL (3.2-5.2); ALT/SGPT 20 U/L (12-78); BILIRUBIN,DIRECT 0.2 MG/DL (0.0-0.2); BILIRUBIN,TOTAL 0.7 MG/DL (0.2-1.0); BLOOD UREA NITROGEN 27 MG/DL (7-18); CALCIUM LEVEL 10.8 MG/DL (8.5-10.1); CARBON DIOXIDE LEVEL 24 MEQ/L (21-32); CHLORIDE LEVEL 105 MEQ/L (98-107); CK-MB VALUE MASS 1.9 NG/ML (<3.6); CPK CREATINE PHOSPHOKINASE 112 U/L (39-308); CREATININE FOR GFR 1.86 MG/DL (0.70-1.30); GLUCOSE, FASTING 142 MG/DL (70-100); LIPASE 101 U/L (73-393); POTASSIUM SERUM 4.7 MEQ/L (3.5-5.1); SODIUM LEVEL 139 MEQ/L (136-145); TOTAL PROTEIN 9.7 GM/DL (6.4-8.2); TROPONIN I < 0.02 NG/ML (< 0.10)
[2020-08-10] MEDS ORDERED: PROMETHAZINE INJ 25 MG/ML VIAL (J2550) IV ONE (04:00)
--- NOTE | 2020-08-10 04:19 | REPVR ---
PROCEDURE INFORMATION: Exam: CT Abdomen And Pelvis Without Contrast Exam date and time: 08/10/2020 2:33 AM Age: 50 years old Clinical indication: Abdominal pain; Generalized; Additional info: Abdominal pain, h/o pancreatitis, ckd TECHNIQUE: Imaging protocol: Computed tomography of the abdomen and pelvis without contrast. Radiation optimization: All CT scans at this facility use at least one of these dose optimization techniques: automated exposure control; mA and/or kV adjustment per patient size (includes targeted exams where dose is matched to clinical indication); or iterative reconstruction. COMPARISON: CT ABD PELVIS W/O CONTRAST 05/17/2020 5:41 PM FINDINGS: Liver: Normal. No mass. Gallbladder and bile ducts: Small amount of gas within the gallbladder. Pancreas: Normal. No ductal dilation. Spleen: Normal. No splenomegaly. Adrenal glands: Normal. No mass. Kidneys and ureters: Normal. No hydronephrosis. Stomach and bowel: Diverticulosis without diverticulitis. Appendix: Normal appendix. Intraperitoneal space: Unremarkable. No free air. No significant fluid collection. Vasculature: Vascular calcification. Lymph nodes: Unremarkable. No enlarged lymph nodes. Urinary bladder: Urinary bladder is collapsed. Reproductive: Unremarkable as visualized. Bones/joints: There are degenerative changes involving the spine. Soft tissues: Unremarkable. IMPRESSION: Gas within the gallbladder. No pericholecystic inflammatory changes are present. Question recent biliary procedure. Gas within the setting of infection or fistula is not excluded. Electronically signed by: Josue Bean On 08/10/2020 04:19:26 AM
--- NOTE | 2020-08-10 05:40 | ECGEPIP ---
[facility] - ED Test Date: 2020-08-10 Pat Name: NAV JANE Department: Room: - Gender: Male Slip Caster: Elena PERDOMO : 1970 Requested By: FRANNY Cam Order Number: [id number] Reading MD: Herbie Valero Measurements Intervals [place] Rate: 78 P: 85 CT: 126 QRS: 106 QRSD: 124 T: 68 QT: 384 QTc: 437 Interpretive Statements Normal sinus rhythm Biatrial enlargement Right bundle branch block SIMILAR TO 07/29/20 Electronically Signed on 08-10-2020 5:40:09 EDT by Herbie Valero
--- NOTE | 2020-08-10 05:43 | REPVR ---
PROCEDURE INFORMATION: Exam: US Abdomen, Limited; Right Upper Quadrant Exam date and time: 08/10/2020 5:13 AM Age: 50 years old Clinical indication: Abdominal pain; Colic; Additional info: Air in gallbladder, abdominal pain TECHNIQUE: Imaging protocol: US abdomen. Real time ultrasound with image documentation. Limited exam focused on the right upper quadrant. COMPARISON: Abdomen, limited US 03/16/2020 8:37 AM FINDINGS: Liver: The liver demonstrates no focal defects. Gallbladder: Echogenic foci along the anterior wall of the gallbladder with 30 shadowing consistent with pneumobilia. No gallstones are seen. There is no wall thickening measuring 2 mm. Common bile duct: The CBD measures 3-4 mm. Pancreas: The pancreas appears normal. Right kidney: The right kidney measures 11.6 cm with no hydronephrosis. IMPRESSION: 1. Pneumobilia. 2. Otherwise negative right upper quadrant sonogram. Electronically signed by: Stephen Bryan On 08/10/2020 05:43:36 AM
[2020-08-10] MEDS ORDERED: PROM25TA12 PO (06:30)
[2020-08-10] MEDS ORDERED: PERC5TAB12 PO (06:30)
[2020-08-10 06:45] VITALS: BP 127/81
--- NOTE | 2020-08-10 14:26 | ED PDOC ---
Post-Departure Follow-Up gb us and ct abd/p faxed to dr collado for fu Cristal Abarca MD Aug 10, 2020 14:26
== END 2020-08-10 07:05 | disposition home or self-care (01) ==
LOC: M ED 02:13
DX: R10.9 Unspecified abdominal pain (principal); I51.7 Cardiomegaly; I45.10 Unspecified right bundle-branch block; K29.00 Acute gastritis without bleeding; F17.200 Nicotine dependence, unspecified, uncomplicated; K83.8 Other specified diseases of biliary tract; Z79.899 Other long term (current) drug therapy; Z88.8 Allergy status to other drugs, medicaments and biological substances
CPT/HCPCS: 74176; 76705; 80048; 80076; 82550; 82553; 83605; 83690; 85025; 93005; 93041; 96361; 96374; 96375; 96376; 99284; J1170; J2405

== ENCOUNTER 2020-11-19 03:51 | Emergency (ER) | payer OTHER ==
[~2020-11-19] VITALS: Ht 172.7 cm; Wt 57.7 kg
[~2020-11-19 03:51] MED LIST changes: -DICY20TA11 PO; +DICY20TA20 PO; +GABA-283 PO; -GABA-845 PO; -LEVO250T12 PO; +LEVO250T3 PO; +PROM25TA12 PO; +TIZA10TA; -TIZA4TAB4
[2020-11-19] MEDS ORDERED: NS 1,000 ML IV ONE (04:05)
[2020-11-19] MEDS ORDERED: ONDANSETRON 4MG/2ML VIAL IV ONE (04:05)
[2020-11-19 04:22] LABS: BASO # 0.1 10^3/uL (0.0-0.2); BASO % 0.5 % (0.0-1.0); EOS # 0.1 10^3/uL (0.0-0.5); EOS % 0.8 % (0.0-3.0); HEMATOCRIT 53.1 % (42.0-52.0); LYMPH % 15.3 % (24.0-44.0); MEAN CORPUSCULAR HEMOGLOBIN 30.5 pg (27.0-33.0); MEAN CORPUSCULAR HGB CONC 33.9 g/dl (32.0-36.5); MEAN CORPUSCULAR VOLUME 89.8 fl (80.0-96.0); MONO % 7.4 % (2.0-8.0); NEUTROPHILS # 10.1 10^3/uL (1.5-8.5); NEUTROPHILS % 75.7 % (36.0-66.0); PLATELET COUNT, AUTOMATED 214 10^3/uL (150-450); RED BLOOD COUNT 5.91 10^6/uL (4.30-6.10); WHITE BLOOD COUNT 13.3 10^3/uL (4.0-10.0)
[2020-11-19] MEDS: HYDROMORPHONE HCL 0.5 MG/ 0.5 ML SYRINGE (J1170 PER 1) IV PRN ×2 (04:35→05:45)
[2020-11-19 05:00] LABS: ALBUMIN 4.1 GM/DL (3.2-5.2); ALT/SGPT 23 U/L (12-78); BILIRUBIN,DIRECT 0.1 MG/DL (0.0-0.2); BILIRUBIN,TOTAL 0.6 MG/DL (0.2-1.0); BLOOD UREA NITROGEN 25 MG/DL (7-18); CALCIUM LEVEL 9.5 MG/DL (8.5-10.1); CARBON DIOXIDE LEVEL 26 MEQ/L (21-32); CHLORIDE LEVEL 103 MEQ/L (98-107); CK-MB VALUE MASS 2.5 NG/ML (<3.6); CPK CREATINE PHOSPHOKINASE 217 U/L (39-308); CREATININE FOR GFR 1.08 MG/DL (0.70-1.30); GLOMERULAR FILTRATION RATE > 60.0 (>56); GLUCOSE, FASTING 137 MG/DL (70-100); LIPASE 113 U/L (73-393); MB/CK RELATIVE INDEX 1.15 (< OR =4); POTASSIUM SERUM 3.8 MEQ/L (3.5-5.1); SODIUM LEVEL 138 MEQ/L (136-145); TOTAL PROTEIN 7.9 GM/DL (6.4-8.2); TROPONIN I < 0.02 NG/ML (< 0.10)
[2020-11-19] MEDS ORDERED: metroNIDAZOLE (FLAGYL) 500MG TABLET PO ONE (07:05)
[2020-11-19] MEDS ORDERED: CIPR-249 PO (07:07)
[2020-11-19] MEDS ORDERED: REGL5TAB2 PO (07:07)
[2020-11-19] MEDS ORDERED: METR-265 PO (07:07)
[2020-11-19 07:15] VITALS: BP 140/70
[2020-11-19] MEDS ORDERED: CIPROFLOXACIN 500MG TABLET PO ONE (08:00)
[2020-11-20] MEDS ORDERED: CEFD300C41 PO (01:42)
== END 2020-11-19 07:25 | disposition home or self-care (01) ==
LOC: M ED 03:51
DX: K52.9 Noninfective gastroenteritis and colitis, unspecified (principal); I45.10 Unspecified right bundle-branch block; F17.200 Nicotine dependence, unspecified, uncomplicated; I70.0 Atherosclerosis of aorta; K57.30 Diverticulosis of large intestine without perforation or abscess without bleeding; Z79.899 Other long term (current) drug therapy; Z88.8 Allergy status to other drugs, medicaments and biological substances
CPT/HCPCS: 74176; 80048; 80076; 81001; 82550; 82553; 83605; 83690; 85025; 87086; 93005; 93041; 96361; 96374; 96375; 96376; 99285; J1170; J2405

== ENCOUNTER 2020-11-19 22:54 | Emergency (ER) | payer OTHER ==
[~2020-11-19] VITALS: Ht 172.7 cm; Wt 57.7 kg
[2020-11-19] MEDS ORDERED: diphenhydrAMINE 50MG/ML VIAL (J1200) As Ordered ONE (23:07)
[2020-11-19] MEDS ORDERED: ONDANSETRON 4MG/2ML VIAL As Ordered ONE (23:07)
[2020-11-19] MEDS ORDERED: NS 1,000 ML IV ONE (23:10)
[2020-11-19] MEDS ORDERED: MOXIFLOXACIN 400 MG TAB PO ONE (23:10)
[2020-11-19 23:34] LABS: BASO % 0.3 % (0.0-1.0); EOS % 0.3 % (0.0-3.0); HEMATOCRIT 46.9 % (42.0-52.0); LYMPH # 1.2 10^3/uL (1.5-5.0); LYMPH % 9.3 % (24.0-44.0); MEAN CORPUSCULAR HEMOGLOBIN 30.4 pg (27.0-33.0); MEAN CORPUSCULAR HGB CONC 33.7 g/dl (32.0-36.5); MEAN CORPUSCULAR VOLUME 90.2 fl (80.0-96.0); MONO % 7.3 % (2.0-8.0); NEUTROPHILS # 10.8 10^3/uL (1.5-8.5); NEUTROPHILS % 82.5 % (36.0-66.0); PLATELET COUNT, AUTOMATED 164 10^3/uL (150-450); WHITE BLOOD COUNT 13.1 10^3/uL (4.0-10.0)
[2020-11-19 23:39] LABS: HEMOGLOBIN 15.8 g/dl (13.5-17.5)
[2020-11-19] MEDS: HYDROMORPHONE HCL 0.5 MG/ 0.5 ML SYRINGE (J1170 PER 1) IV PRN (23:40)
[2020-11-20 00:20] LABS: ALBUMIN 3.7 GM/DL (3.2-5.2); ALT/SGPT 22 U/L (12-78); BILIRUBIN,DIRECT 0.1 MG/DL (0.0-0.2); BILIRUBIN,TOTAL 1.1 MG/DL (0.2-1.0); BLOOD UREA NITROGEN 19 MG/DL (7-18); CALCIUM LEVEL 8.2 MG/DL (8.5-10.1); CARBON DIOXIDE LEVEL 25 MEQ/L (21-32); CHLORIDE LEVEL 105 MEQ/L (98-107); GLOMERULAR FILTRATION RATE > 60.0 (>56); GLUCOSE, FASTING 94 MG/DL (70-100); LIPASE 54 U/L (73-393); POTASSIUM SERUM 4.2 MEQ/L (3.5-5.1); SODIUM LEVEL 138 MEQ/L (136-145); TOTAL PROTEIN 6.7 GM/DL (6.4-8.2)
[2020-11-20] MEDS ORDERED: CEFDINIR 300 MG CAP (OMNICEF) PO ONE (01:40)
[2020-11-20] MEDS ORDERED: CEFD300C41 PO (01:42)
[2020-11-20] MEDS: HYDROMORPHONE HCL 0.5 MG/ 0.5 ML SYRINGE (J1170 PER 1) IV PRN (01:48)
[2020-11-20 02:31] VITALS: BP 166/74
== END 2020-11-20 02:49 | disposition home or self-care (01) ==
LOC: M ED 22:54
DX: L29.9 Pruritus, unspecified (principal); T78.40XA Allergy, unspecified, initial encounter; Y92.9 Unspecified place or not applicable; Y93.9 Activity, unspecified; F17.200 Nicotine dependence, unspecified, uncomplicated; Z79.899 Other long term (current) drug therapy; Z88.8 Allergy status to other drugs, medicaments and biological substances
CPT/HCPCS: 80048; 80076; 83690; 85025; 93041; 94760; 96361; 96374; 96376; 99285; J1170

== ENCOUNTER 2020-11-30 19:56 | Emergency (ER) | payer OTHER ==
[~2020-11-30] VITALS: Ht 172.7 cm; Wt 54.7 kg
[~2020-11-30 19:56] MED LIST changes: +CEFD1CAP8 PO; +DICY20TA11 PO; -DICY20TA20 PO; +LEVO250T12 PO; -LEVO250T3 PO; -TIZA10TA; +TIZA4TAB4
[2020-11-30] MEDS ORDERED: METO5TAB2 (20:04)
[2020-11-30 20:41] VITALS: BP 113/67
== END 2020-11-30 22:40 | disposition left against medical advice (07) ==
LOC: M ED 19:56
DX: Z53.21 Procedure and treatment not carried out due to patient leaving prior to being seen by health care provider (principal)

== ENCOUNTER 2020-12-07 21:47 | Emergency (ER) | payer OTHER ==
[~2020-12-07] VITALS: Ht 172.7 cm; Wt 54.5 kg
[~2020-12-07 21:47] MED LIST changes: +METO5TAB2
[2020-12-07 22:54] LABS: BASO # 0.1 10^3/uL (0.0-0.2); BASO % 0.5 % (0.0-1.0); EOS # 0.1 10^3/uL (0.0-0.5); HEMOGLOBIN 13.7 g/dl (13.5-17.5); LYMPH % 20.3 % (24.0-44.0); MEAN CORPUSCULAR HEMOGLOBIN 30.4 pg (27.0-33.0); MEAN CORPUSCULAR HGB CONC 33.4 g/dl (32.0-36.5); MEAN CORPUSCULAR VOLUME 90.9 fl (80.0-96.0); MONO # 0.7 10^3/uL (0.0-0.8); MONO % 7.3 % (2.0-8.0); NEUTROPHILS # 6.9 10^3/uL (1.5-8.5); NEUTROPHILS % 70.4 % (36.0-66.0); PLATELET COUNT, AUTOMATED 240 10^3/uL (150-450); RED BLOOD COUNT 4.51 10^6/uL (4.30-6.10); WHITE BLOOD COUNT 9.7 10^3/uL (4.0-10.0)
[2020-12-07 23:23] LABS: ALBUMIN 3.1 GM/DL (3.2-5.2); ALT/SGPT 16 U/L (12-78); BILIRUBIN,DIRECT < 0.1 MG/DL (0.0-0.2); BILIRUBIN,TOTAL 0.2 MG/DL (0.2-1.0); LIPASE 180 U/L (73-393); TOTAL PROTEIN 6.5 GM/DL (6.4-8.2)
--- NOTE | 2020-12-08 02:36 | REPVR ---
PROCEDURE INFORMATION: Exam: CT Abdomen And Pelvis Without Contrast Exam date and time: 12/08/2020 12:15 AM Age: 50 years old Clinical indication: Abdominal pain; Other: Suprapubic; Additional info: Suprapubic pain and nausea, ? abscess TECHNIQUE: Imaging protocol: Computed tomography of the abdomen and pelvis without contrast. Radiation optimization: All CT scans at this facility use at least one of these dose optimization techniques: automated exposure control; mA and/or kV adjustment per patient size (includes targeted exams where dose is matched to clinical indication); or iterative reconstruction. COMPARISON: CT ABD PELVIS W/O CONTRAST 11/19/2020 4:12 AM Study limitations: Evaluation for mass, inflammatory change, including bowel wall/fold thickening, viscera, and vasculature, is significantly compromised in this patient without any contrast. FINDINGS: LUNG BASES: Minimal atelectasis and/or pulmonary parenchymal scarring. VASCULAR: No abdominoaortic aneurysm. Evaluation of para-aortic soft tissue structures is compromised secondary to lack of contrast differentiation. Clinical correlation is advised. There is calcific atherosclerosis. Vascular patency is not assessed on this exam. PERITONEAL : No free air. Trace amount of free fluid noted along the left pericolic gutter. GI: No hiatal hernia. The distal esophagus stomach and duodenum are not sufficiently distended to evaluate wall thickening or for complete diagnostic evaluation by this exam. Non-specific fluid-filled loops of small bowel are noted. Gastroenteritis cannot be excluded by this study. No appearance to suggest a complete small bowel obstruction is seen. Mesenteric vascularity is slightly prominent throughout. Scattered fecal material and gas within portions of the colon and rectum. The appendix does not appear inflamed. Portions of the distal colon and rectum appear thick walled. This could be artifactual secondary to insufficient distention. There is focal heterogeneous ill-defined inflammatory change along the distal descending colon (image 76, series 201). There is irregular colonic wall thickening. There is diffuse background of diverticulosis. There is an indistinct calcium containing diverticulum. Findings are most suspicious for acute diverticulitis. No evidence of perforation/free air is seen. Abscesses would be better identified with contrast. An obvious drainable abscess collection is not seen. Differential could include colitis. Follow-up with colonoscopy is advised as an underlying colonic neoplasm cannot be excluded by this study. HEPATOBILIARY, PANCREAS, SPLEEN: Hepatic length is 14.9 cm. The gallbladder is not conclusively identified on the current study. What appears to be the gallbladder may be contracted and contains some gas. There is gas seen within the liver which appears to be within the biliary tree and common bile duct. This could be post procedure related but infection cannot be excluded. Cholecystitis cannot be excluded on this study. No calcified gallstones or choledocholithiasis seen. Clinical correlation is advised. If indicated, consider ultrasound for further evaluation. The pancreas is not well evaluated by this study. No obvious inflammation is seen. Clinical correlation is advised. Spleen not enlarged. ADRENALS, KIDNEYS, BLADDER, RETROPERITONEAL: Slight nodular prominence along the inferior aspect of the right adrenal gland may be secondary to adenomatous change. No hydronephrosis or renal calculi are seen. Evaluation of renal parenchyma is limited without contrast. The urinary bladder appears slightly thick-walled. Any possibility of UTI/cystitis to be correlated clinically. Slightly enlarged indistinct heterogeneous prostate. Clinical correlation is advised. Correlation with PSA may be helpful. Prostatitis cannot be excluded. MUSCULOSKELETAL: Mild scoliosis and degenerative changes of the spine are noted. IMPRESSION: Significant study limitations secondary to lack of any contrast. Mild acute diverticulitis of the distal descending colon is suspected. Gastrointestinal findings, differential and recommendations discussed above in detail. Biliary and pancreatic findings to be correlated clinically are discussed above. Genitourinary findings to be correlated clinically are discussed above. Other nonemergent findings discussed above in detail. Electronically signed by: Rick Chavarria On 12/08/2020 02:36:07 AM
[2020-12-08 04:19] VITALS: BP 125/76
== END 2020-12-08 04:27 | disposition home or self-care (01) ==
LOC: M ED 21:47
DX: R10.9 Unspecified abdominal pain (principal); E78.5 Hyperlipidemia, unspecified; K21.9 Gastro-esophageal reflux disease without esophagitis; K57.32 Diverticulitis of large intestine without perforation or abscess without bleeding; F17.200 Nicotine dependence, unspecified, uncomplicated; Z79.899 Other long term (current) drug therapy; Z88.8 Allergy status to other drugs, medicaments and biological substances

== ENCOUNTER 2020-12-31 20:38 | Emergency (ER) | payer OTHER ==
[~2020-12-31] VITALS: Ht 172.7 cm; Wt 55.5 kg
[2020-12-31 20:38] VITALS: BP 125/72
== END 2020-12-31 21:50 | disposition left against medical advice (07) ==
LOC: M ED 20:38
DX: Z53.21 Procedure and treatment not carried out due to patient leaving prior to being seen by health care provider (principal)

== ENCOUNTER → 2021-02-22 | Outpatient (REF) | payer OTHER ==
[2021-02-22 12:46] LABS: BASO # 0.1 10^3/uL (0.0-0.2); BASO % 0.6 % (0.0-1.0); EOS # 0.1 10^3/uL (0.0-0.5); HEMATOCRIT 46.4 % (42.0-52.0); HEMOGLOBIN 15.2 g/dl (13.5-17.5); LYMPH # 1.9 10^3/uL (1.5-5.0); LYMPH % 22.2 % (24.0-44.0); MEAN CORPUSCULAR HEMOGLOBIN 30.3 pg (27.0-33.0); MEAN CORPUSCULAR HGB CONC 32.8 g/dl (32.0-36.5); MEAN CORPUSCULAR VOLUME 92.4 fl (80.0-96.0); MONO # 0.6 10^3/uL (0.0-0.8); MONO % 7.3 % (2.0-8.0); NEUTROPHILS # 5.8 10^3/uL (1.5-8.5); NEUTROPHILS % 68.5 % (36.0-66.0); PLATELET COUNT, AUTOMATED 183 10^3/uL (150-450); RED BLOOD COUNT 5.02 10^6/uL (4.30-6.10); WHITE BLOOD COUNT 8.4 10^3/uL (4.0-10.0)
[2021-02-22 13:21] LABS: ALBUMIN 3.6 GM/DL (3.2-5.2); ALT/SGPT 17 U/L (12-78); AMYLASE 61 U/L (25-115); BILIRUBIN,TOTAL 0.4 MG/DL (0.2-1.0); BLOOD UREA NITROGEN 15 MG/DL (7-18); CALCIUM LEVEL 8.8 MG/DL (8.5-10.1); CARBON DIOXIDE LEVEL 30 MEQ/L (21-32); CHLORIDE LEVEL 107 MEQ/L (98-107); CREATININE FOR GFR 0.92 MG/DL (0.70-1.30); GLOMERULAR FILTRATION RATE > 60.0 (>56); GLUCOSE, FASTING 89 MG/DL (70-100); LIPASE 123 U/L (73-393); POTASSIUM SERUM 4.2 MEQ/L (3.5-5.1); SODIUM LEVEL 140 MEQ/L (136-145); TOTAL PROTEIN 6.9 GM/DL (6.4-8.2)
[2021-02-22 14:03] LABS: HIV 1&2 SCREEN CENTAUR NEGATIVE (NEGATIVE)
[2021-02-22 14:23] LABS: GC DNA AMPLIFICATION NEGATIVE (NEGATIVE)
== END ==
LOC: M SFHCADAM 11:41
PROVIDERS: ATTEND Family Medicine
DX: Z11.3 Encounter for screening for infections with a predominantly sexual mode of transmission (principal); R10.9 Unspecified abdominal pain

== ENCOUNTER 2021-03-10 17:13 | Emergency (ER) | payer OTHER ==
[~2021-03-10] VITALS: Ht 172.7 cm; Wt 55.9 kg
--- OUTSIDE RECORDS SUMMARY | 2021-03-10 17:20 | CCD ---
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 Completed 11/04/2018 amoxicillin 500 mg capsule Completed 09/22 baclofen 10 mg tablet TAKE ONE TABLET BY MOUTH TWICE A DAY NEEDED Completed 01/11/2021 cefdinir 300 mg capsule Completed 01/12/20 chlorhexidine gluconate 0.12 % mouthwash Completed 01/11/2021 ciprofloxacin 500 mg tablet Completed 05/2020 dicyclomine 10 mg capsule Completed 2018 famotidine 40 mg tabs Completed famotidine 20 mg tablet Completed 09/23/19 21 famotidine 40 mg tablet Completed 08/27/19 21 gabapentin 400 mg caps Completed 03/31/20 20 gabapentin 600 mg tabs Completed 03/31/20 20 gabapentin 800 mg tabs Completed 03/31/20 20 gabapentin 300 mg capsule TAKE ONE CAPSULE BY MOUTH THREE TIMES A DAY Active Not available gabapentin 400 mg capsule Completed 2018 gabapentin 600 mg tablet Completed 020 gabapentin 800 mg tablet TAKE ONE TABLET BY MOUTH THREE TIMES A DAY Active Not available hydrocodone 5 mg-acetaminophen 325 mg tablet Completed 09/22/2020 metoclopramide 10 mg tablet TAKE ONE TABLET BY MOUTH BEFORE MEALS THREE TIMES A DAY AND AT BEDTIME Completed 01/11/2021 metoclopramide 5 mg tablet Completed 01/11 metoclopramide hydrochloride 10 mg tabs Completed 04/26/2020 metronidazole 500 mg tablet Completed 05/2020 nicotine 14 mg/24 hr daily transdermal p atch APPLY 1 PATCH TO SKIN ONCE DAILY Completed 2020 ondansetron 4 mg disintegrating tablet DISSOLVE ONE TABLET ON TONGUE THREE TIMES A DAY NEEDED Active Not available ondansetron HCl 4 mg tablet Completed 08/11 ondansetron odt 4 mg tbdp Completed 04/26 oxycodone-acetaminophen 5 mg-325 mg tablet Completed 01/11/2021 pantoprazole 40 mg tablet,delayed release Active Not available pantoprazole sodium 40 mg tbec Completed 04/26/2020 promethazine 25 mg rectal suppository Completed 05/07/2019 promethazine 25 mg tablet Completed 2020 Protonix 20 mg tablet,delayed release Take 1 tablet every day by oral route. Completed 04/26/2020 ranitidine 150 mg tablet Completed ranitidine hydrochloride 150 mg tabs Completed 04/26/2020 senna 8.6 mg tablet Completed 01/11/2021 tizanidine 4 mg tablet TAKE ONE TABLET BY MOUTH THREE TIMES A DAY NEEDED Completed 08/26/2020 Voltaren Arthritis Pain 1 % topical gel APPLY 2 GRAMS TO THE AFFECTED AREA(S) BY TOPICAL ROUTE 4 TIMES PER DAY Unknown Not available bupropion HCl 150 mg tablet,12 hr sustained-release(smoking dete rrent) Active Not available Problems Name Status Onset Date Source Abdominal Pain Active 11/04/2018 Procedures Date Name Performed by Endoscopic Insertion of Stent into Pancr eatic Duct Information not available 04/26/2020 MRI, Lumbar Spine, W/o Contrast [facility] Radiology Dept [address] [place] [id number] (Work [address]) Results Lab Results Date Name Specimen Result Interpretation Description Value Range Status Address 01/13/2021 [facility] P[facility] Report NOS No observation recorded. [facility]: [address] [facility] [place] 01/13/2021 SARS CoV 2 RNA (COVID-19), QL, stamp clerk-PCR, Respirat ory Specimen NOS Normal Sars-cov-2 negative negative Final [facility]: [address] [facility] [place] 10/03/2020 [facility] Pdf Report NOS No observation recorded. [facility]: [address] [facility] [place] 10/03/2020 SARS CoV 2 RNA (COVID-19), QL, stamp clerk-PCR, Respirat ory Specimen NOS Normal Sars-cov-2 negative negative Final [facility]: [address] [facility] [place] 09/26/2020 [facility] Pdf Report NOS No observation recorded. [facility]: [address] [facility] [place] 09/26/2020 SARS CoV 2 RNA (COVID-19), QL, stamp clerk-PCR, Respirat ory Specimen NOS Normal Sars-cov-2 negative negative Final [facility]: [address] [facility] [place] 09/05/2020 [facility] Pdf Report NOS No observation recorded. [facility]: [address] [facility] [place] 09/05/2020 SARS CoV 2 RNA (COVID-19), QL, stamp clerk-PCR, Respirat ory Specimen NOS Normal Sars-cov-2 negative negative Final [facility]: [address] [facility] [place] 08/08/2020 [facility] Pdf Report NOS No observation recorded. [facility]: [address] [facility] [place] 08/08/2020 SARS CoV 2 RNA (COVID-19), QL, stamp clerk-PCR, Respirat ory Specimen NOS Normal Sars-cov-2 negative negative Final [facility]: [address] [facility] [place] 06/24/2020 [facility] Pdf Report NOS No observation recorded. [facility]: [address] [facility] [place] 06/24/2020 SARS CoV 2 RNA (COVID-19), QL, stamp clerk-PCR, Respirat ory Specimen NOS Normal Sars-cov-2 negative negative Final [facility]: [address] [facility] [place] 06/03/2020 [facility] Pdf Report NOS No observation recorded. [facility]: [address] [facility] [place] 06/03/2020 SARS CoV 2 RNA (COVID-19), QL, stamp clerk-PCR, Respirat ory Specimen NOS Normal Sars-cov-2 negative negative Final [facility]: [address] [facility] [place] Past Encounters 02/22/2021 Abdominal Pain; Myofascial Pain; Lumbar Radiculopathy; Degeneration of Lumbar Intervertebral Disc; Degeneration of Lumbosacral Intervertebral Disc; Displacement of Lumbar Intervertebral Disc without Myelopathy; Intervertebral Disc Disorder; Spondylosis without Myelopathy; Lumbosacral Spondylosis without Myelopathy; Inflammation of Sacroiliac Joint Elvia Mccloud, COURT MAGISTRATE: [id number], [place] [address], Ph. 01/18/2021 Inflammation of Sacroiliac Joint; Abdominal Pain; Myofascial Pain; Lumbar Radiculopathy; Degeneration of Lumbar Intervertebral Disc; Degeneration of Lumbosacral Intervertebral Disc; Displacement of Lumbar Intervertebral Disc without Myelopathy; Intervertebral Disc Disorder; Spondylosis without Myelopathy; Lumbosacral Spondylosis without Myelopathy Star Ramachandran MD: [id number] [address], [place] [address], Ph. 01/13/2021 Pre-surgery Testing; Viral Screening Star Ramachandran MD: [id number] [address], [place] [address], Ph. [phone] 01/11/2021 Abdominal Pain; Myofascial Pain; Lumbar Radiculopathy; Degeneration of Lumbar Intervertebral Disc; Degeneration of Lumbosacral Intervertebral Disc; Displacement of Lumbar Intervertebral Disc without Myelopathy; Intervertebral Disc Disorder; Spondylosis without Myelopathy; Lumbosacral Spondylosis without Myelopathy; Inflammation of Sacroiliac Joint Elvia Mccloud NP: [id number] [address], [facility] [place] [address], Ph. 12/15/2020 Abdominal Pain; Myofascial Pain; Lumbar Radiculopathy; Degeneration of Lumbar Intervertebral Disc; Degeneration of Lumbosacral Intervertebral Disc; Displacement of Lumbar Intervertebral Disc without Myelopathy; Intervertebral Disc Disorder; Spondylosis without Myelopathy; Lumbosacral Spondylosis without Myelopathy Elvia Mccloud NP: [id number] [address], [facility] [place] [address], Ph. 11/03/2020 Abdominal Pain; Myofascial Pain; Lumbar Radiculopathy; Degeneration of Lumbar Intervertebral Disc; Degeneration of Lumbosacral Intervertebral Disc; Displacement of Lumbar Intervertebral Disc without Myelopathy; Intervertebral Disc Disorder; Spondylosis without Myelopathy; Lumbosacral Spondylosis without Myelopathy Elvia Mccloud COURT MAGISTRATE: [id number] [address], [place] [address], Ph. 10/06/2020 Lumbosacral Spondylosis without Myelopathy; Spondylosis without Myelopathy; Degeneration of Lumbar Intervertebral Disc; Degeneration of Lumbosacral Intervertebral Disc; Displacement of Lumbar Intervertebral Disc without Myelopathy; Intervertebral Disc Disorder; Lumbar Radiculopathy; Myofascial Pain; Abdominal Pain Star Ramachandran MD: [id number] [address], [facility] [place] [address], Ph. 10/03/2020 Pre-surgery Testing; Viral Screening Star Ramachandran MD: [id number] [address], [place] [address], Ph. [phone] 09/29/2020 Lumbosacral Spondylosis without Myelopathy; Spondylosis without Myelopathy; Degeneration of Lumbar Intervertebral Disc; Degeneration of Lumbosacral Intervertebral Disc; Displacement of Lumbar Intervertebral Disc without Myelopathy; Intervertebral Disc Disorder; Lumbar Radiculopathy; Myofascial Pain; Abdominal Pain Star Ramachandran MD: [id number] [address], [facility] [place] [address], Ph. 09/26/2020 Pre-surgery Testing; Viral Screening Star Ramachandran MD: [id number] [address], [facility] [place] [address], Ph. [phone] 09/22/2020 Abdominal Pain; Myofascial Pain; Lumbar Radiculopathy; Degeneration of Lumbar Intervertebral Disc; Degeneration of Lumbosacral Intervertebral Disc; Displacement of Lumbar Intervertebral Disc without Myelopathy; Intervertebral Disc Disorder; Spondylosis without Myelopathy; Lumbosacral Spondylosis without Myelopathy Elvia Mccloud NP: [id number] [address], [facility] [place] [address], Ph. 09/08/2020 Lumbosacral Spondylosis without Myelopathy; Spondylosis without Myelopathy; Degeneration of Lumbar Intervertebral Disc; Degeneration of Lumbosacral Intervertebral Disc; Displacement of Lumbar Intervertebral Disc without Myelopathy; Intervertebral Disc Disorder; Lumbar Radiculopathy; Myofascial Pain; Abdominal Pain Star Ramachandran MD: [id number] [address], [place] [address], Ph. 09/05/2020 Pre-surgery Testing; Viral Screening Star Ramachandran MD: [id number] [address], [facility] [place] [address], Ph. [phone] 08/26/2020 Abdominal Pain; Myofascial Pain; Lumbar Radiculopathy; Degeneration of Lumbar Intervertebral Disc; Degeneration of Lumbosacral Intervertebral Disc; Displacement of Lumbar Intervertebral Disc without Myelopathy; Intervertebral Disc Disorder; Spondylosis without Myelopathy; Lumbosacral Spondylosis without Myelopathy Elvia Mccloud, COURT MAGISTRATE: [id number] [address], [facility] [place] [address], Ph. 08/11/2020 Lumbosacral Spondylosis without Myelopathy; Spondylosis without Myelopathy; Degeneration of Lumbosacral Intervertebral Disc; Degeneration of Lumbar Intervertebral Disc; Abdominal Pain; Myofascial Pain; Lumbar Radiculopathy; Displacement of Lumbar Intervertebral Disc without Myelopathy; Intervertebral Disc Disorder Star Ramachandran MD: [id number] [address], [facility] [place] [address], Ph. 08/08/2020 Pre-surgery Testing; Viral Screening Star Ramachandran MD: [id number] [address], [facility] [place] [address], Ph. [phone] 07/18/2020 Abdominal Pain; Myofascial Pain; Lumbar Radiculopathy; Degeneration of Lumbar Intervertebral Disc; Degeneration of Lumbosacral Intervertebral Disc; Displacement of Lumbar Intervertebral Disc without Myelopathy; Intervertebral Disc Disorder; Spondylosis without Myelopathy; Lumbosacral Spondylosis without Myelopathy Elvia Mccloud, COURT MAGISTRATE: [id number] [address], [place] [address], Ph. 06/29/2020 Lumbar Radiculopathy; Degeneration of Lumbar Intervertebral Disc; Degeneration of Lumbosacral Intervertebral Disc; Displacement of Lumbar Intervertebral Disc without Myelopathy; Intervertebral Disc Disorder; Spondylosis without Myelopathy; Lumbosacral Spondylosis without Myelopathy; Myofascial Pain; Abdominal Pain Star Ramachandran MD: [id number] [address], [place] [address], Ph. 06/24/2020 Pre-surgery Testing; Viral Screening Star Ramachandran MD: [id number] [address], Ph. [phone] 06/21/2020 Abdominal Pain; Myofascial Pain; Lumbar Radiculopathy; Degeneration of Lumbar Intervertebral Disc; Degeneration of Lumbosacral Intervertebral Disc; Displacement of Lumbar Intervertebral Disc without Myelopathy; Intervertebral Disc Disorder; Spondylosis without Myelopathy; Lumbosacral Spondylosis without Myelopathy Elvia Mccloud COURT MAGISTRATE: [id number] [address], [place] [address], Ph. 06/08/2020 Lumbar Radiculopathy; Degeneration of Lumbar Intervertebral Disc; Degeneration of Lumbosacral Intervertebral Disc; Displacement of Lumbar Intervertebral Disc without Myelopathy; Intervertebral Disc Disorder; Spondylosis without Myelopathy; Lumbosacral Spondylosis without Myelopathy; Myofascial Pain; Abdominal Pain Star Ramachandran MD: [id number] [address], [place] [address], Ph. 06/03/2020 Pre-surgery Testing; Viral Screening Star Ramachandran MD: [id number] [address], [place] [address], Ph. [phone] 05/24/2020 Abdominal Pain; Myofascial Pain; Lumbar Radiculopathy; Degeneration of Lumbar Intervertebral Disc; Degeneration of Lumbosacral Intervertebral Disc; Displacement of Lumbar Intervertebral Disc without Myelopathy; Intervertebral Disc Disorder; Spondylosis without Myelopathy; Lumbosacral Spondylosis without Myelopathy Elvia Mccloud COURT MAGISTRATE: [id number] [address], [place] [address], Ph. 04/26/2020 Chronic Pancreatitis; Abdominal Pain; Low Back Pain; Myofascial Pain; Lumbar Radiculopathy Elvia Mccloud, COURT MAGISTRATE: [address], [place] [address], Ph. 02/23/2020 Chronic Pancreatitis; Abdominal Pain; Low Back Pain Elvia Mccloud, COURT MAGISTRATE: [address], [place] [address], Ph. 01/14/2020 Chronic Pancreatitis; Abdominal Pain; Low Back Pain Elvia Mccloud, COURT MAGISTRATE: [address], [place] [address], Ph. 05/07/2019 Chronic Pancreatitis; Abdominal Pain Elvia Mccloud, COURT MAGISTRATE: [address], [place] [address], Ph. 03/17/2019 Chronic Pancreatitis; Abdominal Pain Elvia Mccloud, COURT MAGISTRATE: [address], [place] [address], Ph. 01/26/2019 Chronic Pancreatitis; Abdominal Pain Elvia Mccloud, COURT MAGISTRATE: [address], [place] [address], Ph. 12/15/2018 Chronic Pancreatitis; Abdominal Pain Elvia Mccloud, COURT MAGISTRATE: [address], [place] [address], Ph. 11/04/2018 Chronic Pancreatitis; Abdominal Pain Star Ramachandran MD: [address], [place] [address], Ph. Social History Tobacco Smoking Status Heavy Tobacco Smoker (1/2 pack per a day) Notes: 1/2 ppd Vaccine List None recorded. Plan of Care Reminders Provider Appointments None recorded. Lab None recorded. Referral None recorded. Procedures None recorded. Surgeries None recorded. Imaging None recorded. Vitals 02/22/2021 03:45PM FOLLOW-UP Height Blood Pressure 5 ft 8 in 99/63 mm[Hg] 01/11/2021 04:30PM FOLLOW-UP Height Blood Pressure 5 ft 8 in 118/64 mm[Hg] 12/15/2020 04:00PM FOLLOW-UP Height Blood Pressure 5 ft 8 in 103/65 mm[Hg] 11/03/2020 04:00PM FOLLOW-UP Height Blood Pressure 5 ft 8 in 102/58 mm[Hg] 09/22/2020 04:15PM FOLLOW-UP Height Blood Pressure 5 ft 8 in 102/68 mm[Hg] 08/26/2020 11:15AM FOLLOW-UP Height Blood Pressure 5 ft 8 in 108/65 mm[Hg] 07/18/2020 04:00PM FOLLOW-UP Height Blood Pressure 5 ft 8 in 126/82 mm[Hg] 06/21/2020 04:30PM FOLLOW-UP Height Blood Pressure 5 ft 8 in 104/67 mm[Hg] 05/24/2020 03:45PM FOLLOW-UP Height Weight BMI Blood Pressure 5 ft 8 in 129 lbs 19.6 kg/m2 116/74 mm[Hg] 04/26/2020 03:15PM Extended Follow Up Visit Height Blood Pressure 5 ft 8 in 123/77 mm[Hg] 02/23/2020 04:15PM FOLLOW-UP Height Blood Pressure 5 ft 8 in 119/68 mm[Hg] 01/14/2020 04:00PM Extended Follow Up Visit Height Blood Pressure 5 ft 8 in 119/78 mm[Hg] 05/07/2019 04:15PM FOLLOW-UP Height Blood Pressure 5 ft 8 in 106/64 mm[Hg] 03/17/2019 04:15PM FOLLOW-UP Height Weight BMI Blood Pressure 5 ft 8 in 129 lbs 19.6 kg/m2 123/69 mm[Hg] 01/26/2019 11:30AM FOLLOW-UP Height Weight BMI Blood Pressure 5 ft 8 in 129 lbs 19.6 kg/m2 107/68 mm[Hg] 12/15/2018 04:00PM FOLLOW-UP Height Weight BMI Blood Pressure 5 ft 8 in 129 lbs 19.6 kg/m2 111/66 mm[Hg] 11/04/2018 04:30PM NEW PATIENT Height Weight BMI Blood Pressure 5 ft 8 in 129.6 lbs 19.7 kg/m2 91/60 mm[Hg]
--- OUTSIDE RECORDS SUMMARY | 2021-03-10 17:20 | CCD ---
Author Organization Unknown Address [address] [place] [address] Phone [phone] Care Team Providers Care Associate Accountant Name Role Phone MARILYN TEJADA 3 [phone] Allergies Code Code System Name Reaction Severity Status Onset 42321 RxNorm Ketorolac Nausea Mild Active Medications Name [...] available 04/26/2020 MRI, Lumbar Spine, W/o Contrast [facility] Radiology Dept [address] [place] [address] (Work Place) Results Lab Results Date Name Specimen Result Interpretation Description Value Range Status Address 01/13/2021 [facility] P[facility] Report NOS No observation recorded. [facility]: [address] [facility], [place] 01/13/2021 SARS CoV 2 RNA (COVID-19), QL, lining cementer-PCR, Respirat ory Specimen NOS Normal Sars-cov-2 negative negative Final [facility]: [address] [facility] [place] 10/03/2020 [facility] Pdf Report NOS No observation recorded. [facility]: [address] [facility] [place] 10/03/2020 SARS CoV 2 RNA (COVID-19), QL, lining cementer-PCR, Respirat ory Specimen NOS Normal Sars-cov-2 negative negative Final [facility]: [address] [facility] [place] 09/26/2020 [facility] Pdf Report NOS No observation recorded. [facility]: [address] [facility] [place] 09/26/2020 SARS CoV 2 RNA (COVID-19), QL, lining cementer-PCR, Respirat ory Specimen NOS Normal Sars-cov-2 negative negative Final [facility]: [address] [facility] [place] 09/05/2020 [facility] Pdf Report NOS No observation recorded. [facility]: [address] [facility] [place] 09/05/2020 SARS CoV 2 RNA (COVID-19), QL, lining cementer-PCR, Respirat ory Specimen NOS Normal Sars-cov-2 negative negative Final [facility]: [address] [facility] [place] 08/08/2020 [facility] Pdf Report NOS No observation recorded. [facility]: [address] [facility] [place] 08/08/2020 SARS CoV 2 RNA (COVID-19), QL, lining cementer-PCR, Respirat ory Specimen NOS Normal Sars-cov-2 negative negative Final [facility]: [address] [facility] [place] 06/24/2020 [facility] Pdf Report NOS No observation recorded. [facility]: [address] [facility] [place] 06/24/2020 SARS CoV 2 RNA (COVID-19), QL, lining cementer-PCR, Respirat ory Specimen NOS Normal Sars-cov-2 negative negative Final [facility]: [address] [facility] [place] 06/03/2020 [facility] Pdf Report NOS No observation recorded. [facility]: [address] [facility] [place] 06/03/2020 SARS CoV 2 RNA (COVID-19), QL, lining cementer-PCR, Respirat ory Specimen NOS Normal Sars-cov-2 negative negative Final [facility]: [address] [facility] [place] Past Encounters 03/03/2021 Pre-surgery Testing; Viral Screening Star Ramachandran MD: [address], [place] [address], Ph. [phone] 02/22/2021 Abdominal Pain; Myofascial Pain; Lumbar Radiculopathy; Degeneration of Lumbar Intervertebral Disc; Degeneration of Lumbosacral Intervertebral Disc; Displacement of Lumbar Intervertebral Disc without Myelopathy; Intervertebral Disc Disorder; Spondylosis without Myelopathy; Lumbosacral Spondylosis without Myelopathy; Inflammation of Sacroiliac Joint Elvia Mccloud COMPLIANCE FIELD TECHNICIAN: [id number] [address], [place] [address], Ph. 01/18/2021 Inflammation of Sacroiliac Joint; Abdominal Pain; Myofascial Pain; Lumbar Radiculopathy; Degeneration of Lumbar Intervertebral Disc; Degeneration of Lumbosacral Intervertebral Disc; Displacement of Lumbar Intervertebral Disc without Myelopathy; Intervertebral Disc Disorder; Spondylosis without Myelopathy; Lumbosacral Spondylosis without Myelopathy Star Ramachandran MD: [id number] [address], Ph. 01/13/2021 Pre-surgery Testing; Viral Screening Star Ramachandran MD: [id number] [address], Ph. [phone] 01/11/2021 Abdominal Pain; Myofascial Pain; Lumbar Radiculopathy; Degeneration of Lumbar Intervertebral Disc; Degeneration of Lumbosacral Intervertebral Disc; Displacement of Lumbar Intervertebral Disc without Myelopathy; Intervertebral Disc Disorder; Spondylosis without Myelopathy; Lumbosacral Spondylosis without Myelopathy; Inflammation of Sacroiliac Joint Elvia Mccloud COMPLIANCE FIELD TECHNICIAN: [address] [address], [place] [address], Ph. 12/15/2020 Abdominal Pain; Myofascial Pain; Lumbar Radiculopathy; Degeneration of Lumbar Intervertebral Disc; Degeneration of Lumbosacral Intervertebral Disc; Displacement of Lumbar Intervertebral Disc without Myelopathy; Intervertebral Disc Disorder; Spondylosis without Myelopathy; Lumbosacral Spondylosis without Myelopathy Elvia Mccloud COMPLIANCE FIELD TECHNICIAN: [address] [address], [place] [address], Ph. 11/03/2020 Abdominal Pain; Myofascial Pain; Lumbar Radiculopathy; Degeneration of Lumbar Intervertebral Disc; Degeneration of Lumbosacral Intervertebral Disc; Displacement of Lumbar Intervertebral Disc without Myelopathy; Intervertebral Disc Disorder; Spondylosis without Myelopathy; Lumbosacral Spondylosis without Myelopathy Elvia Mccloud COMPLIANCE FIELD TECHNICIAN: [address] [address], [place] [address], Ph. 10/06/2020 Lumbosacral Spondylosis without Myelopathy; Spondylosis without Myelopathy; Degeneration of Lumbar Intervertebral Disc; Degeneration of Lumbosacral Intervertebral Disc; Displacement of Lumbar Intervertebral Disc without Myelopathy; Intervertebral Disc Disorder; Lumbar Radiculopathy; Myofascial Pain; Abdominal Pain Star Ramachandran MD: [id number] [address], [place] [address], Ph. 10/03/2020 Pre-surgery Testing; Viral Screening Star Ramachandran MD: [address] [address], Ph. [phone] 09/29/2020 Lumbosacral Spondylosis without Myelopathy; Spondylosis without Myelopathy; Degeneration of Lumbar Intervertebral Disc; Degeneration of Lumbosacral Intervertebral Disc; Displacement of Lumbar Intervertebral Disc without Myelopathy; Intervertebral Disc Disorder; Lumbar Radiculopathy; Myofascial Pain; Abdominal Pain Star Ramachandran MD: [address] [address], [place] [address], Ph. 09/26/2020 Pre-surgery Testing; Viral Screening Star Ramachandran MD: [address] [address], Ph. [phone] 09/22/2020 Abdominal Pain; Myofascial Pain; Lumbar Radiculopathy; Degeneration of Lumbar Intervertebral Disc; Degeneration of Lumbosacral Intervertebral Disc; Displacement of Lumbar Intervertebral Disc without Myelopathy; Intervertebral Disc Disorder; Spondylosis without Myelopathy; Lumbosacral Spondylosis without Myelopathy Elvia Mccloud COMPLIANCE FIELD TECHNICIAN: [address] [address], [place] [address], Ph. 09/08/2020 Lumbosacral Spondylosis without Myelopathy; Spondylosis without Myelopathy; Degeneration of Lumbar Intervertebral Disc; Degeneration of Lumbosacral Intervertebral Disc; Displacement of Lumbar Intervertebral Disc without Myelopathy; Intervertebral Disc Disorder; Lumbar Radiculopathy; Myofascial Pain; Abdominal Pain Star Ramachandran MD: [address] [address], [place] [address], Ph. 09/05/2020 Pre-surgery Testing; Viral Screening Star Ramachandran MD: [address] [address], [place] [address], Ph. [phone] 08/26/2020 Abdominal Pain; Myofascial Pain; Lumbar Radiculopathy; Degeneration of Lumbar Intervertebral Disc; Degeneration of Lumbosacral Intervertebral Disc; Displacement of Lumbar Intervertebral Disc without Myelopathy; Intervertebral Disc Disorder; Spondylosis without Myelopathy; Lumbosacral Spondylosis without Myelopathy Elvia Mccloud COMPLIANCE FIELD TECHNICIAN: [address] [address], [place] [address], Ph. 08/11/2020 Lumbosacral Spondylosis without Myelopathy; Spondylosis without Myelopathy; Degeneration of Lumbosacral Intervertebral Disc; Degeneration of Lumbar Intervertebral Disc; Abdominal Pain; Myofascial Pain; Lumbar Radiculopathy; Displacement of Lumbar Intervertebral Disc without Myelopathy; Intervertebral Disc Disorder Star Ramachandran MD: [address] [address], [place] [address], Ph. 08/08/2020 Pre-surgery Testing; Viral Screening Star Ramachandran MD: [address] [address], [place] [address], Ph. [phone] 07/18/2020 Abdominal Pain; Myofascial Pain; Lumbar Radiculopathy; Degeneration of Lumbar Intervertebral Disc; Degeneration of Lumbosacral Intervertebral Disc; Displacement of Lumbar Intervertebral Disc without Myelopathy; Intervertebral Disc Disorder; Spondylosis without Myelopathy; Lumbosacral Spondylosis without Myelopathy Elvia Mccloud COMPLIANCE FIELD TECHNICIAN: [address] [address], [place] [address], Ph. 06/29/2020 Lumbar Radiculopathy; Degeneration of Lumbar Intervertebral Disc; Degeneration of Lumbosacral Intervertebral Disc; Displacement of Lumbar Intervertebral Disc without Myelopathy; Intervertebral Disc Disorder; Spondylosis without Myelopathy; Lumbosacral Spondylosis without Myelopathy; Myofascial Pain; Abdominal Pain Star Ramachandran MD: [address] [address], [place] [address], Ph. 06/24/2020 Pre-surgery Testing; Viral Screening Star Ramachandran MD: [address] [facility], [place] [address], Ph. [phone] 06/21/2020 Abdominal Pain; Myofascial Pain; Lumbar Radiculopathy; Degeneration of Lumbar Intervertebral Disc; Degeneration of Lumbosacral Intervertebral Disc; Displacement of Lumbar Intervertebral Disc without Myelopathy; Intervertebral Disc Disorder; Spondylosis without Myelopathy; Lumbosacral Spondylosis without Myelopathy Elvia Mccloud COMPLIANCE FIELD TECHNICIAN: [address] [address], [place] [address], Ph. 06/08/2020 Lumbar Radiculopathy; Degeneration of Lumbar Intervertebral Disc; Degeneration of Lumbosacral Intervertebral Disc; Displacement of Lumbar Intervertebral Disc without Myelopathy; Intervertebral Disc Disorder; Spondylosis without Myelopathy; Lumbosacral Spondylosis without Myelopathy; Myofascial Pain; Abdominal Pain Star Ramachandran MD: 19994 [facility], [place] [address], Ph. 06/03/2020 Pre-surgery Testing; Viral Screening Star Ramachandran MD: [address] [address], [place] [address], Ph. [phone] 05/24/2020 Abdominal Pain; Myofascial Pain; Lumbar Radiculopathy; Degeneration of Lumbar Intervertebral Disc; Degeneration of Lumbosacral Intervertebral Disc; Displacement of Lumbar Intervertebral Disc without Myelopathy; Intervertebral Disc Disorder; Spondylosis without Myelopathy; Lumbosacral Spondylosis without Myelopathy Elvia Mccloud COMPLIANCE FIELD TECHNICIAN: [address], [place] [address], Ph. 04/26/2020 Chronic Pancreatitis; Abdominal Pain; Low Back Pain; Myofascial Pain; Lumbar Radiculopathy Elvia Mccloud, COMPLIANCE FIELD TECHNICIAN: [address], [place] [address], Ph. 02/23/2020 Chronic Pancreatitis; Abdominal Pain; Low Back Pain Elvia Mccloud, COMPLIANCE FIELD TECHNICIAN: [address], [place] [address], Ph. 01/14/2020 Chronic Pancreatitis; Abdominal Pain; Low Back Pain Elvia Mccloud, COMPLIANCE FIELD TECHNICIAN: [address], [place] [address], Ph. 05/07/2019 Chronic Pancreatitis; Abdominal Pain Elvia Mccloud, COMPLIANCE FIELD TECHNICIAN: [address], [place] [address], Ph. 03/17/2019 Chronic Pancreatitis; Abdominal Pain Elvia Mccloud, COMPLIANCE FIELD TECHNICIAN: [address], [place] [address], Ph. 01/26/2019 Chronic Pancreatitis; Abdominal Pain Elvia Mccloud, COMPLIANCE FIELD TECHNICIAN: [address], [place] [address], Ph. 12/15/2018 Chronic Pancreatitis; Abdominal Pain Elvia Mccloud, COMPLIANCE FIELD TECHNICIAN: [address], [place] [address], Ph. 11/04/2018 Chronic Pancreatitis; Abdominal Pain Star Ramachandran MD: [address], [place] [address], Ph. Social History Tobacco Smoking Status [...]
--- OUTSIDE RECORDS SUMMARY | 2021-03-10 17:20 | CCD ---
Author Author [facility] Organization [facility] ems Address Unknown Phone Unavailable Care Team Providers Care Sanforizing Machine Operator Name Role Phone Janelle Graham Unavailable PROBLEMS Type Condition ICD9-CM Code [id number] Code Onset Dates Condition S tatus W/U Status Risk SNOMED Code Notes Problem Insomnia, unspecified type G47.00 Active confirmed 638325348 Problem Cigarette nicotine dependence without complication F17.210 Active confirmed 17856015 Problem Decreased appetite R63.0 Active confirmed 6 0417767 Problem Hx of pancreatitis Z87.19 Active confirmed 8 0015551224999 Problem Gastroesophageal reflux dise ase, unspecified whether esophagitis present K21.9 Active confirmed 276908824 Problem Anxiety F41.9 Active confirmed 19596622 Problem Dysphagia, unspecified type R13.10 Active confirmed 27400107 Problem Epigastric abdominal pain R10.13 Active confirmed 99798672 Problem Gastroesophageal reflux disease, esophagitis pre sence not specified K21.9 Active confirmed 029593840 Problem Elevated hemoglobin D58.2 Active confirmed 505830545 Problem Leukocytosis, unspecified type D72.829 Active confi rmed 151545268 Problem Other chronic pain G89.29 Active confirmed 8 3422703 ALLERGIES Allergen (clinical drug ingredient) Drug/Non Drug Allergy do cumented on EMR Reaction Allergy Type Onset Date Status ketorolac Ketorolac Tromethamine([facility] Code:[address]-03) nausea Drug Allergy Active ENCOUNTERS from 1969 to 2021-02-17 Encounter Location Date Provider Diagnosis [address] [place] [address] Nov, Janelle LacyCatracho IMMUNIZATIONS Vaccine Route Administration Date Status Influenza 18 yrs & older Flublok IM Intramuscular Mar 28, 2020 Administered Influenza 18 yrs & older Flublok IM Intramuscular Feb 26, 2019 Administered Pneumococcal Adult 0.5mL Pneumovax 23 IM Intramuscular Apr 28 018 Administered Influenza 6mo & up Fluzone IM Intramuscular Apr 28, 2018 Admi nistered Influenza 6mo & up Fluzone Unknown Apr 10, 2018 Other s Influenza 6mo & up Fluzone Unknown Jun 05, 2016 Refus ed SOCIAL HISTORY Tobacco Use: Social History Observation Description Date Details (start date - stop date) Current Smoker Sex Assigned At : Social History Observation Description Sex Assigned At Unknown Education: Question Answer Notes Level of Education: Not finished High School 10 th grade Audit Question Answer Notes Total Score: 0 Interpretation: Alcohol Education Sexual Hx: Question Answer Notes Had sex in the last 12 months (vaginal, oral, or anal)? Yes Have you ever had an STD? No with Women only Use protection? No Drug and Alcohol Question Answer Notes Total Score: 1 Interpretation: Low level Alcohol Screening: Question Answer Notes Did you have a drink containing alcohol in the past year? No Points 0 Interpretation Negative Tobacco Use: Question Answer Notes Are you a: current smoker Additional Findings: Tobacco User Moderate cigarette smoker (10-19 cigs/day) Smoking Cessation Information Given 11/30/2020 Patient counseled on the dangers of tobacco use and urged to quit: 07/24/2019 How many cigarettes a day do you smoke? 11-20 Are you interested in quitting? Not ready to quit Counseled the patient on smoking effects, education provided 11/30/2020 REASON FOR REFERRAL No Information VITAL SIGNS No information MEDICATIONS Medication SIG (Take, Route, Frequency, Duration) Notes Start Da te End Date Status Metoclopramide HCl 5 MG 1 tablet Orally every 8 hours as needed for nausea Nov, Active Ondansetron 4 MG 1 tab Oral q4 hours prn nausea for 30 days Active Ondansetron 4 MG 1 tablet on the tongue and a llow to dissolve Orally three times daily as needed for 15 days Nov, Acti ve Gabapentin 800 MG 1 capsule Orally three times daily Active Famotidine 40 MG TAKE ONE TABLET BY MOUTH EVERY EVENING Oral for 30 Active Pantoprazole Sodium 40 MG 1 tablet Orally Once a day for 30 day( s) Nov, Active Vitamin D 25 MCG (1000 UT) 1 tablet Orally Once a day for 30 day(s) Not-Taking PROCEDURES No Information RESULTS No Results REASON FOR VISIT still having abd pain MEDICAL (GENERAL) HISTORY Type Description Date Medical History Tobacco Abuse Medical History multiple AKIs, felt to be secondary to i nfection, dehydration Medical History UTI Medical History Dehydration Medical History Stable 8 mm pulmonary nodule in RUL cons idered benign Medical History alcoholism Medical History Chronic pancreatitis, states secondary t o alcohol abuse 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 Medical History ERCP with Stent placement 30 12 [facility], reports stent was lost Medical History gastritis seen on EGD 2018 Surgical History ERCP with pancreatic stent placed 2007 Surgical History Spincterotomy w/ ERCP 2007 Surgical History EGD/colonscopy 06/2014 Surgical History EGD 09/12/16 Surgical History EGD with gastritis 07/2018 Hospitalization History Numerous hospitalizations fo r abdominal pain and chronic pancreatitis. Hospitalization History Pancreatitis 09/27/15-10/01/15 Hospitalization History Nausea and vomiting, PANKAJ 11/2018 Hospitalization History N/V dehydration 03/31 Goals Section No Information Health Concerns No Information MEDICAL EQUIPMENT No Information MENTAL STATUS No Information FUNCTIONAL STATUS No Information ASSESSMENTS No Information PLAN OF TREATMENT Medication Medication Name Sig Start Date Stop Date Ondansetron 4 MG 1 tablet on the tongue and a llow to dissolve Orally three times daily as needed for 15 days Nov, Next Appt Details Provider Name:Janelle Graham, 2021-02-22 11:00:00 AM, [address] , [place], [address], Insurance Providers Payer Name Payer Address Payer Phone Insured Name Patient Relati onship to Insured Coverage Start Date Coverage End Date [facility] [facility] [address] [facility] [id number] [phone] NAV JANE self
--- OUTSIDE RECORDS SUMMARY | 2021-03-10 17:20 | CCD ---
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 [facility]: [facility] [place] 03/03/2021 SARS CoV 2 RNA (COVID-19), QL, maintenance planner-PCR, Respirat ory Specimen NOS Normal Sars-cov-2 negative negative Final [facility]: [facility] [place] 01/13/2021 [facility] Pdf Report NOS No observation recorded. [facility]: [facility] [place] 01/13/2021 SARS CoV 2 RNA (COVID-19), QL, maintenance planner-PCR, Respirat ory Specimen NOS Normal Sars-cov-2 negative negative Final [facility]: [facility] [place] 10/03/2020 [facility] Pdf Report NOS No observation recorded. [facility]: [facility] [place] 10/03/2020 SARS CoV 2 RNA (COVID-19), QL, maintenance planner-PCR, Respirat ory Specimen NOS Normal Sars-cov-2 negative negative Final [facility]: [facility] [place] 09/26/2020 [facility] Pdf Report NOS No observation recorded. [facility]: [facility] [place] 09/26/2020 SARS CoV 2 RNA (COVID-19), QL, maintenance planner-PCR, Respirat ory Specimen NOS Normal Sars-cov-2 negative negative Final [facility]: [facility] [place] 09/05/2020 [facility] Pdf Report NOS No observation recorded. [facility]: [facility] [place] 09/05/2020 SARS CoV 2 RNA (COVID-19), QL, maintenance planner-PCR, Respirat ory Specimen NOS Normal Sars-cov-2 negative negative Final [facility]: [facility] [place] 08/08/2020 [facility] Pdf Report NOS No observation recorded. [facility]: [facility] [place] 08/08/2020 SARS CoV 2 RNA (COVID-19), QL, maintenance planner-PCR, Respirat ory Specimen NOS Normal Sars-cov-2 negative negative Final [facility]: [facility] [place] 06/24/2020 [facility] Pdf Report NOS No observation recorded. [facility]: [facility] [place] 06/24/2020 SARS CoV 2 RNA (COVID-19), QL, maintenance planner-PCR, Respirat ory Specimen NOS Normal Sars-cov-2 negative negative Final [facility]: [facility] [place] 06/03/2020 [facility] Pdf Report NOS No observation recorded. [facility]: [facility] [place] 06/03/2020 SARS CoV 2 RNA (COVID-19), QL, maintenance planner-PCR, Respirat ory Specimen NOS Normal Sars-cov-2 negative negative Final [facility]: [facility] [place] Past Encounters 03/08/2021 Inflammation of Sacroiliac Joint; Abdominal Pain; Myofascial Pain; Lumbar Radiculopathy; Degeneration of Lumbar Intervertebral Disc; Degeneration of Lumbosacral Intervertebral Disc; Displacement of Lumbar Intervertebral Disc without Myelopathy; Intervertebral Disc Disorder; Spondylosis without Myelopathy; Lumbosacral Spondylosis without Myelopathy Star Ramachandran MD: [id number] [address], Ph. 03/03/2021 Pre-surgery Testing; Viral Screening Star Ramachandran MD: [address] [address], Ph. [phone] 02/22/2021 Abdominal Pain; Myofascial Pain; Lumbar Radiculopathy; Degeneration of Lumbar Intervertebral Disc; Degeneration of Lumbosacral Intervertebral Disc; Displacement of Lumbar Intervertebral Disc without Myelopathy; Intervertebral Disc Disorder; Spondylosis without Myelopathy; Lumbosacral Spondylosis without Myelopathy; Inflammation of Sacroiliac Joint Elvia Mccloud IT CONSULTANT: [id number] [address], Ph. 01/18/2021 Inflammation of Sacroiliac Joint; Abdominal Pain; Myofascial Pain; Lumbar Radiculopathy; Degeneration of Lumbar Intervertebral Disc; Degeneration of Lumbosacral Intervertebral Disc; Displacement of Lumbar Intervertebral Disc without Myelopathy; Intervertebral Disc Disorder; Spondylosis without Myelopathy; Lumbosacral Spondylosis without Myelopathy Star Ramachandran MD: [address] [address], Ph. 01/13/2021 Pre-surgery Testing; Viral Screening Star Ramachandran MD: [id number] [address], Ph. [phone] 01/11/2021 Abdominal Pain; Myofascial Pain; Lumbar Radiculopathy; Degeneration of Lumbar Intervertebral Disc; Degeneration of Lumbosacral Intervertebral Disc; Displacement of Lumbar Intervertebral Disc without Myelopathy; Intervertebral Disc Disorder; Spondylosis without Myelopathy; Lumbosacral Spondylosis without Myelopathy; Inflammation of Sacroiliac Joint Elvia Carla Mccloud, IT CONSULTANT: [address] [address], [facility] [place] [address], Ph. 12/15/2020 Abdominal Pain; Myofascial Pain; Lumbar Radiculopathy; Degeneration of Lumbar Intervertebral Disc; Degeneration of Lumbosacral Intervertebral Disc; Displacement of Lumbar Intervertebral Disc without Myelopathy; Intervertebral Disc Disorder; Spondylosis without Myelopathy; Lumbosacral Spondylosis without Myelopathy Elvia Mccloud IT CONSULTANT: [address] [address], [place] [address], Ph. 11/03/2020 Abdominal Pain; Myofascial Pain; Lumbar Radiculopathy; Degeneration of Lumbar Intervertebral Disc; Degeneration of Lumbosacral Intervertebral Disc; Displacement of Lumbar Intervertebral Disc without Myelopathy; Intervertebral Disc Disorder; Spondylosis without Myelopathy; Lumbosacral Spondylosis without Myelopathy Elvia Mccloud IT CONSULTANT: [address] [address], [facility] [place] [address], Ph. 10/06/2020 Lumbosacral Spondylosis without Myelopathy; Spondylosis without Myelopathy; Degeneration of Lumbar Intervertebral Disc; Degeneration of Lumbosacral Intervertebral Disc; Displacement of Lumbar Intervertebral Disc without Myelopathy; Intervertebral Disc Disorder; Lumbar Radiculopathy; Myofascial Pain; Abdominal Pain Star Ramachandran MD: [address] [address], Ph. 10/03/2020 Pre-surgery Testing; Viral Screening Star Ramachandran MD: [address] [address], [place] [address], Ph. [phone] 09/29/2020 Lumbosacral Spondylosis without Myelopathy; Spondylosis without Myelopathy; Degeneration of Lumbar Intervertebral Disc; Degeneration of Lumbosacral Intervertebral Disc; Displacement of Lumbar Intervertebral Disc without Myelopathy; Intervertebral Disc Disorder; Lumbar Radiculopathy; Myofascial Pain; Abdominal Pain Star Ramachandran MD: [address] [address], [place] [address], Ph. 09/26/2020 Pre-surgery Testing; Viral Screening Star Ramachandran MD: 70407 [facility], [facility] [place] [address], Ph. [phone] 09/22/2020 Abdominal Pain; Myofascial Pain; Lumbar Radiculopathy; Degeneration of Lumbar Intervertebral Disc; Degeneration of Lumbosacral Intervertebral Disc; Displacement of Lumbar Intervertebral Disc without Myelopathy; Intervertebral Disc Disorder; Spondylosis without Myelopathy; Lumbosacral Spondylosis without Myelopathy Elvia Mccloud, IT CONSULTANT: [address] [address], [facility] [place] [address], Ph. 09/08/2020 Lumbosacral Spondylosis without Myelopathy; Spondylosis without Myelopathy; Degeneration of Lumbar Intervertebral Disc; Degeneration of Lumbosacral Intervertebral Disc; Displacement of Lumbar Intervertebral Disc without Myelopathy; Intervertebral Disc Disorder; Lumbar Radiculopathy; Myofascial Pain; Abdominal Pain Star Ramachandran MD: [address] [address], [facility] [place] [address], Ph. 09/05/2020 Pre-surgery Testing; Viral Screening Star Ramachandran MD: [address] [address], [facility] [place] [address], Ph. [phone] 08/26/2020 Abdominal Pain; Myofascial Pain; Lumbar Radiculopathy; Degeneration of Lumbar Intervertebral Disc; Degeneration of Lumbosacral Intervertebral Disc; Displacement of Lumbar Intervertebral Disc without Myelopathy; Intervertebral Disc Disorder; Spondylosis without Myelopathy; Lumbosacral Spondylosis without Myelopathy Elvia Mccloud, IT CONSULTANT: [address] [facility] [address], [facility] [place] [address], Ph. 08/11/2020 Lumbosacral Spondylosis without Myelopathy; Spondylosis without Myelopathy; Degeneration of Lumbosacral Intervertebral Disc; Degeneration of Lumbar Intervertebral Disc; Abdominal Pain; Myofascial Pain; Lumbar Radiculopathy; Displacement of Lumbar Intervertebral Disc without Myelopathy; Intervertebral Disc Disorder Star Ramachandran MD: [address] [address], [place] [address], Ph. 08/08/2020 Pre-surgery Testing; Viral Screening Star Ramachandran MD: [address] [address], [facility] [place] [address], Ph. [phone] 07/18/2020 Abdominal Pain; Myofascial Pain; Lumbar Radiculopathy; Degeneration of Lumbar Intervertebral Disc; Degeneration of Lumbosacral Intervertebral Disc; Displacement of Lumbar Intervertebral Disc without Myelopathy; Intervertebral Disc Disorder; Spondylosis without Myelopathy; Lumbosacral Spondylosis without Myelopathy Elvia Mccloud, IT CONSULTANT: [address] [address], [facility] [place] [address], Ph. 06/29/2020 Lumbar Radiculopathy; Degeneration of Lumbar Intervertebral Disc; Degeneration of Lumbosacral Intervertebral Disc; Displacement of Lumbar Intervertebral Disc without Myelopathy; Intervertebral Disc Disorder; Spondylosis without Myelopathy; Lumbosacral Spondylosis without Myelopathy; Myofascial Pain; Abdominal Pain Star Ramachandran MD: [address] [address], [facility] [place] [address], Ph. 06/24/2020 Pre-surgery Testing; Viral Screening Star Ramachandran MD: [address] [address], [place] [address], Ph. [phone] 06/21/2020 Abdominal Pain; Myofascial Pain; Lumbar Radiculopathy; Degeneration of Lumbar Intervertebral Disc; Degeneration of Lumbosacral Intervertebral Disc; Displacement of Lumbar Intervertebral Disc without Myelopathy; Intervertebral Disc Disorder; Spondylosis without Myelopathy; Lumbosacral Spondylosis without Myelopathy Elvia Mccloud, IT CONSULTANT: [address] [address], [facility] [place] [address], Ph. 06/08/2020 Lumbar Radiculopathy; Degeneration of Lumbar Intervertebral Disc; Degeneration of Lumbosacral Intervertebral Disc; Displacement of Lumbar Intervertebral Disc without Myelopathy; Intervertebral Disc Disorder; Spondylosis without Myelopathy; Lumbosacral Spondylosis without Myelopathy; Myofascial Pain; Abdominal Pain Star Ramachandran MD: [address]142 [facility] [address], [place] [address], Ph. 06/03/2020 Pre-surgery Testing; Viral Screening Star Ramachandran MD: 51859 [facility] [address], [place] [address], Ph. [phone] 05/24/2020 Abdominal Pain; Myofascial Pain; Lumbar Radiculopathy; Degeneration of Lumbar Intervertebral Disc; Degeneration of Lumbosacral Intervertebral Disc; Displacement of Lumbar Intervertebral Disc without Myelopathy; Intervertebral Disc Disorder; Spondylosis without Myelopathy; Lumbosacral Spondylosis without Myelopathy Elvia Mccloud, IT CONSULTANT: [address] [facility] [address], [facility] [place] [address], Ph. 04/26/2020 Chronic Pancreatitis; Abdominal Pain; Low Back Pain; Myofascial Pain; Lumbar Radiculopathy Elvia Mccloud, IT CONSULTANT: [address] [facility] [address], [facility] [place] [address], Ph. 02/23/2020 Chronic Pancreatitis; Abdominal Pain; Low Back Pain Elvia Mccloud, IT CONSULTANT: [address] [facility] [address], [facility] [place] [address], Ph. 01/14/2020 Chronic Pancreatitis; Abdominal Pain; Low Back Pain Elvia Mccloud, IT CONSULTANT: [address] [facility] [address], [place] [address], Ph. 05/07/2019 Chronic Pancreatitis; Abdominal Pain Elvia Mccloud, IT CONSULTANT: [address] [facility] [address], [place] [address], Ph. 03/17/2019 Chronic Pancreatitis; Abdominal Pain Elvia Mccloud, IT CONSULTANT: [address] [facility] [address], [place] [address], Ph. 01/26/2019 Chronic Pancreatitis; Abdominal Pain Elvia Mccloud, IT CONSULTANT: [address], [place] [address], Ph. 12/15/2018 Chronic Pancreatitis; Abdominal Pain Elvia Mccloud, IT CONSULTANT: [address], [place] [address], Ph. 11/04/2018 Chronic Pancreatitis; Abdominal Pain Star Ramachandran MD: [address], [place] [address], Ph. Social History Tobacco Smoking Status Heavy Tobacco Smoker (1/2 pack per a day) Notes: 05/14 ppd Vaccine List None recorded. Plan of [...]
--- OUTSIDE RECORDS SUMMARY | 2021-03-10 17:20 | CCD ---
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 Role Phone Janelle Graham Unavailable PROBLEMS Type Condition ICD9-CM Code [id number] Code Onset Dates Condition S tatus W/U Status Risk SNOMED Code Notes Problem Insomnia, unspecified type G47.00 Active confirmed 673269249 Problem Cigarette nicotine dependence without complication F17.210 Active confirmed 80026178 Problem Decreased appetite R63.0 Active confirmed 6 4341414 Problem Hx of pancreatitis Z87.19 Active confirmed 8 [id number] Problem Gastroesophageal reflux dise ase, unspecified whether esophagitis present K21.9 Active confirmed 529403278 Problem Anxiety F41.9 Active confirmed 56898882 Problem Dysphagia, unspecified type R13.10 Active confirmed 27497896 Problem Epigastric abdominal pain R10.13 Active confirmed 39083436 Problem Gastroesophageal reflux disease, esophagitis pre sence not specified K21.9 Active confirmed 594529979 Problem Elevated hemoglobin D58.2 Active confirmed 465135677 Problem Leukocytosis, unspecified type D72.829 Active confi rmed 484127082 Problem Other chronic pain G89.29 Active confirmed 8 5673782 ALLERGIES Allergen (clinical drug ingredient) Drug/Non Drug Allergy do cumented on EMR Reaction Allergy Type Onset Date Status ketorolac Ketorolac Tromethamine([facility] Code:[address]-36) nausea Drug Allergy Active ENCOUNTERS from 1970 to 2021-03-06 Encounter Location Date Provider Diagnosis [facility] [address] [place] [address] Feb, 2021 Janelle Graham Screening for STD (sexually transmitted disease) Z11.3 and Abdominal pain, unspecified abdominal location R10.9 IMMUNIZATIONS Vaccine Route Administration Date Status Influenza [...] smoker (10-19 cigs/day) Smoking Cessation Information Given 02/22/2021 Patient counseled on the dangers of tobacco use and urged to quit: 07/24/2019 How many cigarettes a day do you smoke? 11-20 Are you interested in quitting? Not ready to quit Counseled the patient on smoking effects, education provided 02/22/2021 REASON FOR REFERRAL No Information VITAL SIGNS Weight 122.2 lbs Feb, Weight-kg 55.43 kg Feb, Height 68 in Feb, BMI 18.58 kg/m2 Feb, Heart Rate 82 /min Feb, Respiratory Rate 18 /min Feb, Temperature 97.5 degrees Fahrenheit Feb, Oximetry 95 Feb, Blood pressure systolic 118 mm Hg Feb, Blood pressure diastolic 64 mm Hg Feb, MEDICATIONS Medication SIG (Take, Route, Frequency, Duration) Notes Start Da te End Date Status Ondansetron 4 MG 1 tablet on the tongue and a llow to dissolve Orally three times daily as needed for 15 days Nov, Acti ve Metoclopramide HCl 5 MG 1 tablet Orally every 8 hours as needed for nausea Nov, Active Gabapentin 800 MG 1 capsule Orally three times daily Active Ondansetron 4 MG 1 tab Oral q4 hours prn nausea for 30 days Active Vitamin D 25 MCG (1000 UT) 1 tablet Orally Once a day for 30 day(s) Not-Taking Pantoprazole Sodium 40 MG 1 tablet Orally Once a day for 30 day( s) Nov, Active Famotidine 40 MG TAKE ONE TABLET BY MOUTH EVERY EVENING Oral for 30 Active PROCEDURES No Information RESULTS Component Value Reference Range AMYLASE Reviewed date:03/06/2021 01:41:02 Interpretation: Performing Lab:[facility] LABORATORY [address] [facility] [address] , ,[place] [address] AMYLASE 61 25-115 CBC with Differential Reviewed date:03/06/2021 01:40:47 Interpretation: Performing Lab:[facility], [facility] [address] [facility] [address] , ,[place] [address] WHITE BLOOD COUNT 8.4 4.0-10.0 RED BLOOD COUNT 5.02 4.30-6.10 HEMOGLOBIN 15.2 13.5-17.5 HEMATOCRIT 46.4 42.0-52.0 MEAN CORPUSCULAR VOLUME 92.4 80.0-96.0 MEAN CORPUSCULAR HEMOGLOBIN 30.3 27.0-33.0 MEAN CORPUSCULAR HGB CONC 32.8 32.0-36.5 RED CELL DISTRIBUTION WIDTH 13.2 11.5-14.5 PLATELET COUNT, AUTOMATED 183 150-450 NEUTROPHILS % 68.5 36.0-66.0 LYMPH % 22.2 24.0-44.0 MONO % 7.3 2.0-8.0 EOS % 1.0 0.0-3.0 BASO % 0.6 0.0-1.0 NEUTROPHILS # 5.8 1.5-8.5 LYMPH # 1.9 1.5-5.0 MONO # 0.6 0.0-0.8 EOS # 0.1 0.0-0.5 BASO # 0.1 0.0-0.2 CHLAMYDIA & GC DNA AMPLIFICAT Reviewed date:03/06/2021 01:38:17 Interpretation: Performing Lab:[facility] [address] [facility] [address] , ,[place] [address] CHLAMYDIA DNA AMPLIFICATION NEGATIVE NEGATIVE GC DNA AMPLIFICATION NEGATIVE NEGATIVE Comprehensive Metabolic Profile (CMP) Reviewed date:03/06/2021 01:39:02 Interpretation: Performing Lab:[facility] LABORATORY [address] [place] [address] , ,[place] [address] GLUCOSE, FASTING 89 70-100 BLOOD UREA NITROGEN 15 7-18 CREATININE FOR GFR 0.92 0.70-1.30 GLOMERULAR FILTRATION RATE > 60.0 >56 SODIUM LEVEL 140 136-145 POTASSIUM SERUM 4.2 3.5-5.1 CHLORIDE LEVEL 107 98-107 CARBON DIOXIDE LEVEL 30 21-32 CALCIUM LEVEL 8.8 8.5-10.1 AST/SGOT 21 7-37 ALT/SGPT 17 12-78 ALKALINE PHOSPHATASE 88 45-117 BILIRUBIN,TOTAL 0.4 0.2-1.0 TOTAL PROTEIN 6.9 6.4-8.2 ALBUMIN 3.6 3.2-5.2 ALBUMIN/GLOBULIN RATIO 1.1 HIV 1and2 ANTIBODY SCREEN Reviewed date:03/06/2021 01:38:35 Interpretation: Performing Lab:[facility] [address] [facility] [address] , ,[place] [address] LIPASE Reviewed date:03/06/2021 01:41:13 Interpretation: Performing Lab:[facility] [address] [facility] [address] , ,[place] [address] LIPASE [phone] SYPHILIS ANTIBODY (RPR SCREEN) Reviewed date:03/06/2021 01:38:46 Interpretation: Performing Lab:[facility] [address] [facility] [address] , ,[place] [address] SYPHILIS NONREACTIVE NONREACTIVE REASON FOR VISIT abd. discomfort, nausea, wt. loss MEDICAL (GENERAL) HISTORY Type Description Date Medical [...] History ERCP with Stent placement 30 12 [facility], reports stent was lost Medical History gastritis [...] No Information FUNCTIONAL STATUS No Information ASSESSMENTS Encounter Date Diagnosis Assessment Notes Treatment Notes Treatm ent Clinical Notes Feb, Screening for STD (sexually transmitted disease) (ICD-10 - Z11.3) Tested for STDs per patient request. Feb, Abdominal pain, unspecified abdominal location ( ICD-10 - R10.9) Labwork ordered to further evaluate. PLAN OF TREATMENT Treatment Notes Assessment Notes Clinical Notes Screening for STD (sexually transmitted disease) Tested for STDs per patient request. Abdominal pain, unspecified abdominal location Labwork ordered to further evaluate. Insurance Providers Payer Name Payer Address Payer Phone Insured Name Patient Relati onship to Insured Coverage Start Date Coverage End Date [facility] [address] [facility] [id number] NAV JANE self
--- OUTSIDE RECORDS SUMMARY | 2021-03-10 17:21 | CCD ---
Author Organization Unknown Address [address] [place] [address] Phone [phone] Care Team Providers Care Spring Repairer Helper Hand Name Role Phone MARILYN TEJADA 3 [phone] Allergies Code Code System Name Reaction Severity Status Onset 00840 RxNorm Ketorolac Nausea Mild Active Medications Name [...] Completed [address] 1 TABLET ON TONGUE AND ALLOW TO DISSOLVE THREE TIMES A DAY NEEDED Active Not [...] available 04/26/2020 MRI, Lumbar Spine, W/o Contrast [facility] Radiology Dept [address] [place] [address] (Work Place) Results Lab Results Date Name Specimen Result Interpretation Description Value Range Status Address 10/03/2020 [facility] Pdf Report NOS No observation recorded. [facility] Covid: [address] [facility] [place] 10/03/2020 SARS CoV 2 RNA (COVID-19), QL, brake repairer-PCR, Respirat ory Specimen NOS Normal Sars-cov-2 negative negative Final [facility]: [address] [facility] [place] 09/26/2020 [facility] Pdf Report NOS No observation recorded. [facility]: [address] [facility] [place] 09/26/2020 SARS CoV 2 RNA (COVID-19), QL, brake repairer-PCR, Respirat ory Specimen NOS Normal Sars-cov-2 negative negative Final [facility]: [address] [facility] [place] 09/05/2020 [facility] Pdf Report NOS No observation recorded. [facility]: [address] [facility] [place] 09/05/2020 SARS CoV 2 RNA (COVID-19), QL, brake repairer-PCR, Respirat ory Specimen NOS Normal Sars-cov-2 negative negative Final [facility]: [address] [facility] [place] 08/08/2020 [facility] Pdf Report NOS No observation recorded. [facility]: [address] [facility] [place] 08/08/2020 SARS CoV 2 RNA (COVID-19), QL, brake repairer-PCR, Respirat ory Specimen NOS Normal Sars-cov-2 negative negative Final [facility]: [address] [facility] [place] 06/24/2020 [facility] Pdf Report NOS No observation recorded. [facility]id: [address] [facility] [place] 06/24/2020 SARS CoV 2 RNA (COVID-19), QL, brake repairer-PCR, Respirat ory Specimen NOS Normal Sars-cov-2 negative negative Final [facility]: [address] [facility] [place] 06/03/2020 [facility] Pdf Report NOS No observation recorded. [facility]id: [address] [facility] [place] 06/03/2020 SARS CoV 2 RNA (COVID-19), QL, brake repairer-PCR, Respirat ory Specimen NOS Normal Sars-cov-2 negative negative Final [facility]: [address] [facility] [place] Past Encounters 01/13/2021 Pre-surgery Testing; Viral Screening Star Ramachandran MD: [address], [place] [address], Ph. [phone] 01/11/2021 Abdominal Pain; Myofascial Pain; Lumbar Radiculopathy; Degeneration of Lumbar Intervertebral Disc; Degeneration of Lumbosacral Intervertebral Disc; Displacement of Lumbar Intervertebral Disc without Myelopathy; Intervertebral Disc Disorder; Spondylosis without Myelopathy; Lumbosacral Spondylosis without Myelopathy; Inflammation of Sacroiliac Joint Elvia Mccloud HYDROLOGY PROFESSOR: [address], [address], [place] [address], Ph. 12/15/2020 Abdominal Pain; Myofascial Pain; Lumbar Radiculopathy; Degeneration of Lumbar Intervertebral Disc; Degeneration of Lumbosacral Intervertebral Disc; Displacement of Lumbar Intervertebral Disc without Myelopathy; Intervertebral Disc Disorder; Spondylosis without Myelopathy; Lumbosacral Spondylosis without Myelopathy Elvia Mccloud HYDROLOGY PROFESSOR: [address] [address], [facility] [address], Ph. 11/03/2020 Abdominal Pain; Myofascial Pain; Lumbar Radiculopathy; Degeneration of Lumbar Intervertebral Disc; Degeneration of Lumbosacral Intervertebral Disc; Displacement of Lumbar Intervertebral Disc without Myelopathy; Intervertebral Disc Disorder; Spondylosis without Myelopathy; Lumbosacral Spondylosis without Myelopathy Elvia Mccloud HYDROLOGY PROFESSOR: [address] [address], [place] [address], Ph. 10/06/2020 Lumbosacral Spondylosis without Myelopathy; Spondylosis without Myelopathy; Degeneration of Lumbar Intervertebral Disc; Degeneration of Lumbosacral Intervertebral Disc; Displacement of Lumbar Intervertebral Disc without Myelopathy; Intervertebral Disc Disorder; Lumbar Radiculopathy; Myofascial Pain; Abdominal Pain Star Ramachandran MD: [address] [address], [place] [address], Ph. 10/03/2020 Pre-surgery Testing; Viral Screening Star Ramachandran MD: [address] [address], [place] [address], Ph. [phone] 09/29/2020 Lumbosacral Spondylosis without Myelopathy; Spondylosis without Myelopathy; Degeneration of Lumbar Intervertebral Disc; Degeneration of Lumbosacral Intervertebral Disc; Displacement of Lumbar Intervertebral Disc without Myelopathy; Intervertebral Disc Disorder; Lumbar Radiculopathy; Myofascial Pain; Abdominal Pain Star Ramachandran MD: [address] [address], [place] [address], Ph. 09/26/2020 Pre-surgery Testing; Viral Screening Star Ramachandran MD: [address] [address], [place] [address], Ph. [phone] 09/22/2020 Abdominal Pain; Myofascial Pain; Lumbar Radiculopathy; Degeneration of Lumbar Intervertebral Disc; Degeneration of Lumbosacral Intervertebral Disc; Displacement of Lumbar Intervertebral Disc without Myelopathy; Intervertebral Disc Disorder; Spondylosis without Myelopathy; Lumbosacral Spondylosis without Myelopathy Elvia Mccloud HYDROLOGY PROFESSOR: [address] [address], [place] [address], Ph. 09/08/2020 Lumbosacral Spondylosis without Myelopathy; Spondylosis without Myelopathy; Degeneration of Lumbar Intervertebral Disc; Degeneration of Lumbosacral Intervertebral Disc; Displacement of Lumbar Intervertebral Disc without Myelopathy; Intervertebral Disc Disorder; Lumbar Radiculopathy; Myofascial Pain; Abdominal Pain Star Ramachandran MD: [address] [address], [place] [address], Ph. 09/05/2020 Pre-surgery Testing; Viral Screening Star Ramachandran MD: [address] [address], [place] [address], Ph. [phone] 08/26/2020 Abdominal Pain; Myofascial Pain; Lumbar Radiculopathy; Degeneration of Lumbar Intervertebral Disc; Degeneration of Lumbosacral Intervertebral Disc; Displacement of Lumbar Intervertebral Disc without Myelopathy; Intervertebral Disc Disorder; Spondylosis without Myelopathy; Lumbosacral Spondylosis without Myelopathy Elvia Mccloud HYDROLOGY PROFESSOR: [address] [address], [facility] [address], Ph. 08/11/2020 Lumbosacral Spondylosis without Myelopathy; Spondylosis without Myelopathy; Degeneration of Lumbosacral Intervertebral Disc; Degeneration of Lumbar Intervertebral Disc; Abdominal Pain; Myofascial Pain; Lumbar Radiculopathy; Displacement of Lumbar Intervertebral Disc without Myelopathy; Intervertebral Disc Disorder Star Ramachandran MD: [address] [address], [place] [address], Ph. 08/08/2020 Pre-surgery Testing; Viral Screening Star Ramachandran MD: [address] [facility] [address], [facility] [address], Ph. [phone] 07/18/2020 Abdominal Pain; Myofascial Pain; Lumbar Radiculopathy; Degeneration of Lumbar Intervertebral Disc; Degeneration of Lumbosacral Intervertebral Disc; Displacement of Lumbar Intervertebral Disc without Myelopathy; Intervertebral Disc Disorder; Spondylosis without Myelopathy; Lumbosacral Spondylosis without Myelopathy Elvia Mccloud, HYDROLOGY PROFESSOR: [address] [facility] [address], [facility] [address], Ph. 06/29/2020 Lumbar Radiculopathy; Degeneration of Lumbar Intervertebral Disc; Degeneration of Lumbosacral Intervertebral Disc; Displacement of Lumbar Intervertebral Disc without Myelopathy; Intervertebral Disc Disorder; Spondylosis without Myelopathy; Lumbosacral Spondylosis without Myelopathy; Myofascial Pain; Abdominal Pain Star Ramachandran MD: [address] [facility] [address], [facility] [address], Ph. 06/24/2020 Pre-surgery Testing; Viral Screening Star Ramachandran MD: [address] [address], [facility] [address], Ph. [phone] 06/21/2020 Abdominal Pain; Myofascial Pain; Lumbar Radiculopathy; Degeneration of Lumbar Intervertebral Disc; Degeneration of Lumbosacral Intervertebral Disc; Displacement of Lumbar Intervertebral Disc without Myelopathy; Intervertebral Disc Disorder; Spondylosis without Myelopathy; Lumbosacral Spondylosis without Myelopathy Elvia Mccloud HYDROLOGY PROFESSOR: [address] [facility] [address], [facility] [address], Ph. 06/08/2020 Lumbar Radiculopathy; Degeneration of Lumbar Intervertebral Disc; Degeneration of Lumbosacral Intervertebral Disc; Displacement of Lumbar Intervertebral Disc without Myelopathy; Intervertebral Disc Disorder; Spondylosis without Myelopathy; Lumbosacral Spondylosis without Myelopathy; Myofascial Pain; Abdominal Pain Star Ramachandran MD: [address] [facility], [facility] [address], Ph. 06/03/2020 Pre-surgery Testing; Viral Screening Star Ramachandran MD: [address], [place] [address], Ph. [phone] 05/24/2020 Abdominal Pain; Myofascial Pain; Lumbar Radiculopathy; Degeneration of Lumbar Intervertebral Disc; Degeneration of Lumbosacral Intervertebral Disc; Displacement of Lumbar Intervertebral Disc without Myelopathy; Intervertebral Disc Disorder; Spondylosis without Myelopathy; Lumbosacral Spondylosis without Myelopathy Elvia Mccloud, HYDROLOGY PROFESSOR: [address] [facility] [address], [facility] [address], Ph. 04/26/2020 Chronic Pancreatitis; Abdominal Pain; Low Back Pain; Myofascial Pain; Lumbar Radiculopathy Elvia Mccloud, HYDROLOGY PROFESSOR: [address] [facility] [address], [facility] [address], Ph. 02/23/2020 Chronic Pancreatitis; Abdominal Pain; Low Back Pain Elvia Mccloud, HYDROLOGY PROFESSOR: [address], [facility] [address], Ph. 01/14/2020 Chronic Pancreatitis; Abdominal Pain; Low Back Pain Elvia Mccloud, HYDROLOGY PROFESSOR: [address], [place] [address], Ph. 05/07/2019 Chronic Pancreatitis; Abdominal Pain Elvia Carla Mccloud, HYDROLOGY PROFESSOR: [address], [place] [address], Ph. 03/17/2019 Chronic Pancreatitis; Abdominal Pain Elvia Carla Mccloud, HYDROLOGY PROFESSOR: [address], [place] [address], Ph. 01/26/2019 Chronic Pancreatitis; Abdominal Pain Elvia Carla Mccloud, HYDROLOGY PROFESSOR: [address], [place] [address], Ph. 12/15/2018 Chronic Pancreatitis; Abdominal Pain Elviazena Aguirre ANDREZ Mccloud: [address], [place] [address], Ph. 11/04/2018 Chronic Pancreatitis; Abdominal Pain Star Ramachandran MD: [address] [facility] [address], [address], [place] [address], Ph. Social History Tobacco Smoking Status Heavy Tobacco Smoker (1/2 pack per a day) Notes: 1/2 ppd Vaccine List None recorded. Plan of Care Reminders Provider Appointments None recorded. Lab None recorded. Referral None recorded. Procedures None recorded. Surgeries None recorded. Imaging None recorded. Vitals 01/11/2021 04:30PM FOLLOW-UP Height Blood Pressure 5 [...]
--- OUTSIDE RECORDS SUMMARY | 2021-03-10 17:21 | CCD ---
Author Organization Unknown Address [address] [place] [address] Phone [phone] Care Team Providers Care Forestry Support Specialist Name Role Phone MARILYN TEJADA 3 [phone] Allergies Code Code System Name Reaction Severity Status Onset 88437 RxNorm Ketorolac Nausea Mild Active Medications Name Status Start Date Stop Date amitriptyline 25 mg tablet Take 1 tablet every day by oral route. Completed 11/04/2018 amoxicillin 500 mg capsule Completed 09/22 baclofen 10 mg tablet TAKE ONE TABLET BY MOUTH TWICE A DAY NEEDED Completed 01/11/2021 cefdinir 300 mg capsule Completed 01/12/20 21 chlorhexidine gluconate 0.12 % mouthwash Completed 01/11/2021 [...] tablet Completed 020 gabapentin 800 mg tablet Active Not ifeoma ilable hydrocodone 5 mg-acetaminophen 325 mg tablet Completed [...] available 04/26/2020 MRI, Lumbar Spine, W/o Contrast [facility] Radiology Dept [address] [place], [place] [id number] (Work Place) Results Lab Results Date Name Specimen Result Interpretation Description Value Range Status Address 01/13/2021 [facility] Pdf Report NOS No observation recorded. [facility] Covid: [address] [facility] [place] 01/13/2021 SARS CoV 2 RNA (COVID-19), QL, hourly caregiver-PCR, Respirat ory Specimen NOS Normal Sars-cov-2 negative negative Final [facility] Covid: [address] [facility] [place] 10/03/2020 [facility] Pdf Report NOS No observation recorded. [facility]: [address] [facility] [place] 10/03/2020 SARS CoV 2 RNA (COVID-19), QL, hourly caregiver-PCR, Respirat ory Specimen NOS Normal Sars-cov-2 negative negative Final [facility] Covid: [address] [facility] [place] 09/26/2020 [facility] Pdf Report NOS No observation recorded. [facility] Covid: [address] [facility] [place] 09/26/2020 SARS CoV 2 RNA (COVID-19), QL, hourly caregiver-PCR, Respirat ory Specimen NOS Normal Sars-cov-2 negative negative Final [facility] Covid: [address] [facility] [place] 09/05/2020 [facility] Pdf Report NOS No observation recorded. [facility] Covid: [address] [facility] [place] 09/05/2020 SARS CoV 2 RNA (COVID-19), QL, hourly caregiver-PCR, Respirat ory Specimen NOS Normal Sars-cov-2 negative negative Final [facility] Covid: [address] [facility] [place] 08/08/2020 [facility] Pdf Report NOS No observation recorded. [facility] Covid: [address] [facility] [place] 08/08/2020 SARS CoV 2 RNA (COVID-19), QL, hourly caregiver-PCR, Respirat ory Specimen NOS Normal Sars-cov-2 negative negative Final [facility] Covid: [address] [facility] [place] 06/24/2020 [facility] Pdf Report NOS No observation recorded. [facility] Covid: [address] [facility] [place] 06/24/2020 SARS CoV 2 RNA (COVID-19), QL, hourly caregiver-PCR, Respirat ory Specimen NOS Normal Sars-cov-2 negative negative Final [facility] Covid: [address] [facility] [place] 06/03/2020 [facility] Pdf Report NOS No observation recorded. [facility] Covid: [address] [facility] [place] 06/03/2020 SARS CoV 2 RNA (COVID-19), QL, hourly caregiver-PCR, Respirat ory Specimen NOS Normal Sars-cov-2 negative negative Final [facility] Covid: [facility] 01/18/2021 Inflammation of Sacroiliac Joint; Abdominal Pain; Myofascial Pain; Lumbar Radiculopathy; Degeneration of Lumbar Intervertebral Disc; Degeneration of Lumbosacral Intervertebral Disc; Displacement of Lumbar Intervertebral Disc without Myelopathy; Intervertebral Disc Disorder; Spondylosis without Myelopathy; Lumbosacral Spondylosis without Myelopathy Star Ramachandran MD: [address] [facility] [address], [place] [address], Ph. 01/13/2021 Pre-surgery Testing; Viral Screening Star Ramachandran MD: [address] [address], [facility] [place] [address], Ph. [phone] 01/11/2021 Abdominal Pain; Myofascial Pain; Lumbar Radiculopathy; Degeneration of Lumbar Intervertebral Disc; Degeneration of Lumbosacral Intervertebral Disc; Displacement of Lumbar Intervertebral Disc without Myelopathy; Intervertebral Disc Disorder; Spondylosis without Myelopathy; Lumbosacral Spondylosis without Myelopathy; Inflammation of Sacroiliac Joint Elvia Mccloud QA ENGINEER: [address] [address], [place] [address], Ph. 12/15/2020 Abdominal Pain; Myofascial Pain; Lumbar Radiculopathy; Degeneration of Lumbar Intervertebral Disc; Degeneration of Lumbosacral Intervertebral Disc; Displacement of Lumbar Intervertebral Disc without Myelopathy; Intervertebral Disc Disorder; Spondylosis without Myelopathy; Lumbosacral Spondylosis without Myelopathy Elvia Mccloud NP: [address] [address], [facility] [place] [address], Ph. 11/03/2020 Abdominal Pain; Myofascial Pain; Lumbar Radiculopathy; Degeneration of Lumbar Intervertebral Disc; Degeneration of Lumbosacral Intervertebral Disc; Displacement of Lumbar Intervertebral Disc without Myelopathy; Intervertebral Disc Disorder; Spondylosis without Myelopathy; Lumbosacral Spondylosis without Myelopathy Elvia Mccloud QA ENGINEER: [address] [address], [facility] [place] [address], Ph. 10/06/2020 Lumbosacral Spondylosis without Myelopathy; Spondylosis without Myelopathy; Degeneration of Lumbar Intervertebral Disc; Degeneration of Lumbosacral Intervertebral Disc; Displacement of Lumbar Intervertebral Disc without Myelopathy; Intervertebral Disc Disorder; Lumbar Radiculopathy; Myofascial Pain; Abdominal Pain Star Ramachandran MD: [address] [address], [facility] [place] [address], Ph. 10/03/2020 Pre-surgery Testing; Viral Screening Star Ramachandran MD: [address] [address], [facility] [place] [address], Ph. [phone] 09/29/2020 Lumbosacral Spondylosis without Myelopathy; Spondylosis without Myelopathy; Degeneration of Lumbar Intervertebral Disc; Degeneration of Lumbosacral Intervertebral Disc; Displacement of Lumbar Intervertebral Disc without Myelopathy; Intervertebral Disc Disorder; Lumbar Radiculopathy; Myofascial Pain; Abdominal Pain Star Ramachandran MD: [address] [address], [facility] [place] [address], Ph. 09/26/2020 Pre-surgery Testing; Viral Screening Star Ramachandran MD: [address] [address], [facility] [place] [address], Ph. [phone] 09/22/2020 Abdominal Pain; Myofascial Pain; Lumbar Radiculopathy; Degeneration of Lumbar Intervertebral Disc; Degeneration of Lumbosacral Intervertebral Disc; Displacement of Lumbar Intervertebral Disc without Myelopathy; Intervertebral Disc Disorder; Spondylosis without Myelopathy; Lumbosacral Spondylosis without Myelopathy Elvia Mccloud NP: [address] [address], [facility] [place] [address], Ph. 09/08/2020 Lumbosacral Spondylosis without Myelopathy; Spondylosis without Myelopathy; Degeneration of Lumbar Intervertebral Disc; Degeneration of Lumbosacral Intervertebral Disc; Displacement of Lumbar Intervertebral Disc without Myelopathy; Intervertebral Disc Disorder; Lumbar Radiculopathy; Myofascial Pain; Abdominal Pain Star Ramachandran MD: [address] [facility] [address], [place] [address], Ph. 09/05/2020 Pre-surgery Testing; Viral Screening Star Ramachandran MD: [address] [address], [facility] [place] [address], Ph. [phone] 08/26/2020 Abdominal Pain; Myofascial Pain; Lumbar Radiculopathy; Degeneration of Lumbar Intervertebral Disc; Degeneration of Lumbosacral Intervertebral Disc; Displacement of Lumbar Intervertebral Disc without Myelopathy; Intervertebral Disc Disorder; Spondylosis without Myelopathy; Lumbosacral Spondylosis without Myelopathy Elvia Mccloud QA ENGINEER: [address] [address], [place] [address], Ph. 08/11/2020 Lumbosacral Spondylosis without Myelopathy; Spondylosis without Myelopathy; Degeneration of Lumbosacral Intervertebral Disc; Degeneration of Lumbar Intervertebral Disc; Abdominal Pain; Myofascial Pain; Lumbar Radiculopathy; Displacement of Lumbar Intervertebral Disc without Myelopathy; Intervertebral Disc Disorder Star Ramachandran MD: [address] [address], Ph. 08/08/2020 Pre-surgery Testing; Viral Screening Star Ramachandran MD: [address] [address], [place] [address], Ph. [phone] 07/18/2020 Abdominal Pain; Myofascial Pain; Lumbar Radiculopathy; Degeneration of Lumbar Intervertebral Disc; Degeneration of Lumbosacral Intervertebral Disc; Displacement of Lumbar Intervertebral Disc without Myelopathy; Intervertebral Disc Disorder; Spondylosis without Myelopathy; Lumbosacral Spondylosis without Myelopathy Elvia Mccloud QA ENGINEER: [address] [address], [facility] [place] [address], Ph. 06/29/2020 Lumbar Radiculopathy; Degeneration of Lumbar Intervertebral Disc; Degeneration of Lumbosacral Intervertebral Disc; Displacement of Lumbar Intervertebral Disc without Myelopathy; Intervertebral Disc Disorder; Spondylosis without Myelopathy; Lumbosacral Spondylosis without Myelopathy; Myofascial Pain; Abdominal Pain Star Ramachandran MD: [address] [address], [place] [address], Ph. 06/24/2020 Pre-surgery Testing; Viral Screening Star Ramachandran MD: [address] [address], [place] [address], Ph. [phone] 06/21/2020 Abdominal Pain; Myofascial Pain; Lumbar Radiculopathy; Degeneration of Lumbar Intervertebral Disc; Degeneration of Lumbosacral Intervertebral Disc; Displacement of Lumbar Intervertebral Disc without Myelopathy; Intervertebral Disc Disorder; Spondylosis without Myelopathy; Lumbosacral Spondylosis without Myelopathy Elvia Mccloud, QA ENGINEER: [address] [address], [facility] [place] [address], Ph. 06/08/2020 Lumbar Radiculopathy; Degeneration of Lumbar Intervertebral Disc; Degeneration of Lumbosacral Intervertebral Disc; Displacement of Lumbar Intervertebral Disc without Myelopathy; Intervertebral Disc Disorder; Spondylosis without Myelopathy; Lumbosacral Spondylosis without Myelopathy; Myofascial Pain; Abdominal Pain Star Ramachandran MD: [address] [address], [facility] [place] [address], Ph. 06/03/2020 Pre-surgery Testing; Viral Screening Star Ramachandran MD: [address] [address], [facility] [place] [address], Ph. [phone] 05/24/2020 Abdominal Pain; Myofascial Pain; Lumbar Radiculopathy; Degeneration of Lumbar Intervertebral Disc; Degeneration of Lumbosacral Intervertebral Disc; Displacement of Lumbar Intervertebral Disc without Myelopathy; Intervertebral Disc Disorder; Spondylosis without Myelopathy; Lumbosacral Spondylosis without Myelopathy Elvia Mccloud, QA ENGINEER: [address] [address], [facility] [place] [address], Ph. 04/26/2020 Chronic Pancreatitis; Abdominal Pain; Low Back Pain; Myofascial Pain; Lumbar Radiculopathy Elvia Mccloud, QA ENGINEER: [address] [address], [facility] [place] [address], Ph. 02/23/2020 Chronic Pancreatitis; Abdominal Pain; Low Back Pain Elvia Mccloud, QA ENGINEER: [address] [facility] [address], [facility] [place] [address], Ph. 01/14/2020 Chronic Pancreatitis; Abdominal Pain; Low Back Pain Elvia Mccloud, QA ENGINEER: [address], [place] [address], Ph. 05/07/2019 Chronic Pancreatitis; Abdominal Pain Elvia Mccloud, QA ENGINEER: [address], [place] [address], Ph. 03/17/2019 Chronic Pancreatitis; Abdominal Pain Elvia Mccloud, QA ENGINEER: [address], [place] [address], Ph. 01/26/2019 Chronic Pancreatitis; Abdominal Pain Elvia Mccloud, QA ENGINEER: [address], [place] [address], Ph. 12/15/2018 Chronic Pancreatitis; Abdominal Pain Elvia Mccloud, QA ENGINEER: [address], [place] [address], Ph. 11/04/2018 Chronic Pancreatitis; Abdominal Pain Star Ramachandran MD: [address], [place] [address], Ph. Social History Tobacco Smoking Status Heavy [...]
--- OUTSIDE RECORDS SUMMARY | 2021-03-10 17:21 | CCD ---
Author Author [facility] Organization [facility] Address Unknown Phone Unavailable Care Team Providers Care Garment Examiner Name Role Phone Janelle Graham Unavailable PROBLEMS ALLERGIES ENCOUNTERS from 1970 to 2020-12-13 IMMUNIZATIONS SOCIAL HISTORY REASON FOR REFERRAL from 1969 to 2020-12-13 VITAL SIGNS MEDICATIONS PROCEDURES No Information RESULTS No Results REASON FOR VISIT MEDICAL (GENERAL) HISTORY Goals Section Health Concerns MEDICAL EQUIPMENT No Information MENTAL STATUS FUNCTIONAL STATUS ASSESSMENTS PLAN OF TREATMENT Insurance Providers
--- OUTSIDE RECORDS SUMMARY | 2021-03-10 17:21 | CCD ---
Author Author [facility] Organization [facility] Address Unknown Phone Unavailable Care Team Providers Care Wireless Consultant Name Role Phone Janelle Graham Unavailable PROBLEMS Type Condition ICD9-CM Code LPS59-NG Code Onset Dates Condition S tatus W/U Status Risk SNOMED Code Notes Problem Insomnia, unspecified type G47.00 Active confirmed 104634417 Problem Cigarette nicotine dependence without complication F17.210 Active confirmed 02415338 Problem Decreased appetite R63.0 Active confirmed 6 2396311 Problem Hx of pancreatitis Z87.19 Active confirmed 8 6998266303174 Problem Gastroesophageal reflux dise ase, unspecified whether esophagitis present K21.9 Active confirmed 967375134 Problem Anxiety F41.9 Active confirmed 07232281 Problem Dysphagia, unspecified type R13.10 Active confirmed 93297588 Problem Epigastric abdominal pain R10.13 Active confirmed 60749835 Problem Gastroesophageal reflux disease, esophagitis pre sence not specified K21.9 Active confirmed 775446119 Problem Elevated hemoglobin D58.2 Active confirmed 999957861 Problem Leukocytosis, unspecified type D72.829 Active confi rmed 936432937 Problem Other chronic pain G89.29 Active confirmed 8 1241564 ALLERGIES Allergen (clinical drug ingredient) Drug/Non Drug Allergy do cumented on EMR Reaction Allergy Type Onset Date Status ketorolac Ketorolac Tromethamine([facility] Code:[address]-93) nausea Drug Allergy Active ENCOUNTERS from 1970 to 2021-02-16 Encounter Location Date Provider Diagnosis [address] [place] [address] Feb, Janelle Nicholasgan-Tartell Nausea R11.0 IMMUNIZATIONS Vaccine Route Administration Date Status Influenza [...] Information RESULTS No Results REASON FOR VISIT Nausea, stomach pain MEDICAL (GENERAL) HISTORY Type Description Date [...] History ERCP with Stent placement 30 12 [facility], reports stent was lost Medical History gastritis [...] Treatment Notes Treatm ent Clinical Notes Feb, Nausea (ICD-10 - R11.0) PLAN OF TREATMENT Medication Medication Name Sig Start Date Stop Date Ondansetron 4 MG 1 tablet on the tongue and a llow to dissolve Orally three times daily as needed for 15 days Nov, Next Appt Details Provider Name:Janelle Graham, 2021-02-22 11:00:00 AM, [address], , [place], [address], Insurance Providers Payer Name Payer Address Payer Phone Insured Name Patient Relati onship to Insured Coverage Start Date Coverage End Date [facility] [employer] [facility] [address] [facility] [address] [phone] NAV JANE self
--- OUTSIDE RECORDS SUMMARY | 2021-03-10 17:21 | CCD ---
Author Organization Unknown Address [address] [place] [address] Phone [phone] Care Team Providers Care Surveillance Specialist Name Role Phone MARILYN TEJADA 3 [phone] Allergies Code Code System Name Reaction Severity Status Onset 79391 RxNorm Ketorolac Nausea Mild Active Medications Name Status Start Date Stop Date amitriptyline 25 mg tablet Take 1 tablet every day by oral route. Completed 11/04/2018 amoxicillin 500 mg capsule Completed 09/22 baclofen 10 mg tablet TAKE ONE TABLET BY MOUTH TWICE A DAY NEEDED Active Not available cefdinir 300 mg capsule Active Not avai lable chlorhexidine gluconate 0.12 % mouthwash Active Not available ciprofloxacin 500 mg tablet Active Not available dicyclomine 10 mg capsule Completed 2018 famotidine 40 mg tabs Completed 0 famotidine 20 mg tablet Completed 09/23/19 21 famotidine 40 mg tablet Completed 08/27/19 21 gabapentin 400 mg caps Completed 03/31/20 20 gabapentin 600 mg tabs Completed 03/31/20 20 gabapentin 800 mg tabs Completed 03/31/20 20 gabapentin 300 mg capsule TAKE ONE CAPSULE BY MOUTH THREE TIMES A DAY Active Not available gabapentin 400 mg capsule Completed 2018 gabapentin 600 mg tablet Completed gabapentin 800 mg tablet TAKE ONE TABLET BY MOUTH THREE TIMES A DAY Active Not available hydrocodone 5 mg-acetaminophen 325 mg tablet Completed 09/22/2020 metoclopramide 10 mg tablet TAKE ONE TABLET BY MOUTH BEFORE MEALS THREE TIMES A DAY AND AT BEDTIME Active Not available metoclopramide 5 mg tablet Active Not a vailable metoclopramide hydrochloride 10 mg tabs Completed 04/26/2020 metronidazole 500 mg tablet Active Not available nicotine 14 mg/24 hr daily transdermal p atch APPLY 1 PATCH TO SKIN ONCE DAILY Active Not av ailable ondansetron [address] 1 TABLET ON TONGUE AND ALLOW TO DISSOLVE THREE TIMES A DAY NEEDED Active Not available ondansetron HCl 4 mg tablet Completed 08/11 ondansetron odt 4 mg tbdp Completed 04/26 oxycodone-acetaminophen 5 mg-325 mg tablet Active Not available pantoprazole 40 mg tablet,delayed releas e TAKE ONE TABLET BY MOUTH TWICE A DAY Active No t available pantoprazole sodium 40 mg tbec Completed 04/26/2020 promethazine 25 mg rectal suppository Completed 05/07/2019 promethazine 25 mg tablet Active Not av ailable Protonix 20 mg tablet,delayed release Take 1 tablet every day by oral route. Completed 04/26/2020 ranitidine 150 mg tablet Completed 019 ranitidine hydrochloride 150 mg tabs Completed 04/26/2020 senna 8.6 mg tablet Active Not availabl e tizanidine 4 mg tablet TAKE ONE TABLET BY MOUTH THREE TIMES A DAY NEEDED Completed 08/26/2020 Voltaren Arthritis Pain 1 % topical gel APPLY 2 GRAMS TO THE AFFECTED AREA(S) BY TOPICAL ROUTE 4 TIMES PER DAY Active Not available bupropion HCl 150 mg tablet,12 hr sustained-release(smoking dete rrent) Active Not available Problems Name Status Onset Date Source Abdominal Pain Active 11/04/2018 Procedures Date Name Performed by Endoscopic Insertion of Stent into Pancr eatic Duct Information not available 04/26/2020 MRI, Lumbar Spine, W/o Contrast [facility] Radiology Dept [address] [place] [address] [id number] (Work [address]) Results Lab Results Date Name Specimen Result Interpretation Description Value Range Status Address 10/03/2020 [facility] P[facility] Report NOS No observation recorded. 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 11/03/2020 Abdominal Pain; Myofascial Pain; Lumbar Radiculopathy; Degeneration of Lumbar Intervertebral Disc; Degeneration of Lumbosacral Intervertebral Disc; Displacement of Lumbar Intervertebral Disc without Myelopathy; Intervertebral Disc Disorder; Spondylosis without Myelopathy; Lumbosacral Spondylosis without Myelopathy Elvia Mccloud DIRECTOR OF IN SERVICE EDUCATION: [address], [place] [address], Ph. 10/06/2020 Lumbosacral Spondylosis without Myelopathy; Spondylosis without Myelopathy; Degeneration of Lumbar Intervertebral Disc; Degeneration of Lumbosacral Intervertebral Disc; Displacement of Lumbar Intervertebral Disc without Myelopathy; Intervertebral Disc Disorder; Lumbar Radiculopathy; Myofascial Pain; Abdominal Pain Star Ramachandran MD: [address] [facility] [address], [place] [address], Ph. 10/03/2020 Pre-surgery Testing; Viral Screening Star Ramachandran MD: [address] [address], [place] [address], Ph. [phone] 09/29/2020 Lumbosacral Spondylosis without Myelopathy; Spondylosis without Myelopathy; Degeneration of Lumbar Intervertebral Disc; Degeneration of Lumbosacral Intervertebral Disc; Displacement of Lumbar Intervertebral Disc without Myelopathy; Intervertebral Disc Disorder; Lumbar Radiculopathy; Myofascial Pain; Abdominal Pain Star Ramachandran MD: [address] [address], [facility] [place] [address], Ph. 09/26/2020 Pre-surgery Testing; Viral Screening Star Ramachandran MD: [address] [address], [facility] [place] [address], Ph. [phone] 09/22/2020 Abdominal Pain; Myofascial Pain; Lumbar Radiculopathy; Degeneration of Lumbar Intervertebral Disc; Degeneration of Lumbosacral Intervertebral Disc; Displacement of Lumbar Intervertebral Disc without Myelopathy; Intervertebral Disc Disorder; Spondylosis without Myelopathy; Lumbosacral Spondylosis without Myelopathy Elvia Mccloud NP: [id number] [facility] [address], [place] [address], Ph. 09/08/2020 Lumbosacral Spondylosis without Myelopathy; Spondylosis without Myelopathy; Degeneration of Lumbar Intervertebral Disc; Degeneration of Lumbosacral Intervertebral Disc; Displacement of Lumbar Intervertebral Disc without Myelopathy; Intervertebral Disc Disorder; Lumbar Radiculopathy; Myofascial Pain; Abdominal Pain Star Ramachandran MD: [address] [facility] [address], [place] [address], Ph. 09/05/2020 Pre-surgery Testing; Viral Screening Star Ramachandran MD: [address] [address], [facility] [place] [address], Ph. [phone] 08/26/2020 Abdominal Pain; Myofascial Pain; Lumbar Radiculopathy; Degeneration of Lumbar Intervertebral Disc; Degeneration of Lumbosacral Intervertebral Disc; Displacement of Lumbar Intervertebral Disc without Myelopathy; Intervertebral Disc Disorder; Spondylosis without Myelopathy; Lumbosacral Spondylosis without Myelopathy Elvia Mccloud DIRECTOR OF IN SERVICE EDUCATION: [address] [address], [facility] [place] [address], Ph. 08/11/2020 Lumbosacral Spondylosis without Myelopathy; Spondylosis without Myelopathy; Degeneration of Lumbosacral Intervertebral Disc; Degeneration of Lumbar Intervertebral Disc; Abdominal Pain; Myofascial Pain; Lumbar Radiculopathy; Displacement of Lumbar Intervertebral Disc without Myelopathy; Intervertebral Disc Disorder Star Ramachandran MD: [address] [address], [facility] [place] [address], Ph. 08/08/2020 Pre-surgery Testing; Viral Screening Star Ramachandran MD: [address] [address], [place] [address], Ph. [phone] 07/18/2020 Abdominal Pain; Myofascial Pain; Lumbar Radiculopathy; Degeneration of Lumbar Intervertebral Disc; Degeneration of Lumbosacral Intervertebral Disc; Displacement of Lumbar Intervertebral Disc without Myelopathy; Intervertebral Disc Disorder; Spondylosis without Myelopathy; Lumbosacral Spondylosis without Myelopathy Elvia Mccloud, DIRECTOR OF IN SERVICE EDUCATION: [address] [address], [facility] [place] [address], Ph. 06/29/2020 Lumbar Radiculopathy; Degeneration of Lumbar Intervertebral Disc; Degeneration of Lumbosacral Intervertebral Disc; Displacement of Lumbar Intervertebral Disc without Myelopathy; Intervertebral Disc Disorder; Spondylosis without Myelopathy; Lumbosacral Spondylosis without Myelopathy; Myofascial Pain; Abdominal Pain Star Ramachandran MD: [address] [address], [place] [address], Ph. 06/24/2020 Pre-surgery Testing; Viral Screening Star Ramachandran MD: [address] [address], Ph. [phone] 06/21/2020 Abdominal Pain; Myofascial Pain; Lumbar Radiculopathy; Degeneration of Lumbar Intervertebral Disc; Degeneration of Lumbosacral Intervertebral Disc; Displacement of Lumbar Intervertebral Disc without Myelopathy; Intervertebral Disc Disorder; Spondylosis without Myelopathy; Lumbosacral Spondylosis without Myelopathy Elvia Mccloud DIRECTOR OF IN SERVICE EDUCATION: [address] [address], [place] [address], Ph. 06/08/2020 Lumbar Radiculopathy; Degeneration of Lumbar Intervertebral Disc; Degeneration of Lumbosacral Intervertebral Disc; Displacement of Lumbar Intervertebral Disc without Myelopathy; Intervertebral Disc Disorder; Spondylosis without Myelopathy; Lumbosacral Spondylosis without Myelopathy; Myofascial Pain; Abdominal Pain Star Ramachandran MD: [address] [address], [place] [address], Ph. 06/03/2020 Pre-surgery Testing; Viral Screening Star Ramachandran MD: [address] [address], Ph. [phone] 05/24/2020 Abdominal Pain; Myofascial Pain; Lumbar Radiculopathy; Degeneration of Lumbar Intervertebral Disc; Degeneration of Lumbosacral Intervertebral Disc; Displacement of Lumbar Intervertebral Disc without Myelopathy; Intervertebral Disc Disorder; Spondylosis without Myelopathy; Lumbosacral Spondylosis without Myelopathy Elvia Mccloud DIRECTOR OF IN SERVICE EDUCATION: [address] [address], [facility] [place] [address], Ph. 04/26/2020 Chronic Pancreatitis; Abdominal Pain; Low Back Pain; Myofascial Pain; Lumbar Radiculopathy Elvia Mccloud, DIRECTOR OF IN SERVICE EDUCATION: [address], [place] [address], Ph. 02/23/2020 Chronic Pancreatitis; Abdominal Pain; Low Back Pain Elvia Mccloud, DIRECTOR OF IN SERVICE EDUCATION: [address], [place] [address], Ph. 01/14/2020 Chronic Pancreatitis; Abdominal Pain; Low Back Pain Elvia Mccloud, DIRECTOR OF IN SERVICE EDUCATION: [address], [place] [address], Ph. 05/07/2019 Chronic Pancreatitis; Abdominal Pain Elvia Mccloud, DIRECTOR OF IN SERVICE EDUCATION: [address], [place] [address], Ph. 03/17/2019 Chronic Pancreatitis; Abdominal Pain Elvia Mccloud, DIRECTOR OF IN SERVICE EDUCATION: [address], [place] [address], Ph. 01/26/2019 Chronic Pancreatitis; Abdominal Pain Elvia Mccloud, DIRECTOR OF IN SERVICE EDUCATION: [address], [place] [address], Ph. 12/15/2018 Chronic Pancreatitis; Abdominal Pain Elvia Mccloud, DIRECTOR OF IN SERVICE EDUCATION: [address], [place] [address], Ph. 11/04/2018 Chronic Pancreatitis; Abdominal Pain Star Ramachandran MD: [address], [place] [address], Ph. Social History Tobacco Smoking Status Heavy Tobacco Smoker (1/2 pack per a day) Notes: 1/2 ppd Vaccine List None recorded. Plan of Care Reminders Provider Appointments None recorded. Lab None recorded. Referral None recorded. Procedures None recorded. Surgeries None recorded. Imaging None recorded. Vitals 12/15/2020 04:00PM FOLLOW-UP Height Blood Pressure 5 [...]
--- OUTSIDE RECORDS SUMMARY | 2021-03-10 17:21 | CCD ---
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 [facility]: [address] [facility] [place] 10/03/2020 SARS CoV 2 RNA (COVID-19), QL, shield installer-PCR, Respirat ory Specimen NOS Normal Sars-cov-2 negative negative Final [facility]: [address] [facility] [place] 09/26/2020 [facility] Pdf Report NOS No observation recorded. [facility]: [address] [facility] [place] 09/26/2020 SARS CoV 2 RNA (COVID-19), QL, shield installer-PCR, Respirat ory Specimen NOS Normal Sars-cov-2 negative negative Final [facility]: [address] [facility] [place] 09/05/2020 [facility] Pdf Report NOS No observation recorded. [facility]: [address] [facility] [place] 09/05/2020 SARS CoV 2 RNA (COVID-19), QL, shield installer-PCR, Respirat ory Specimen NOS Normal Sars-cov-2 negative negative Final [facility]: [address] [facility] [place] 08/08/2020 [facility] Pdf Report NOS No observation recorded. [facility]: [address] [facility] [place] 08/08/2020 SARS CoV 2 RNA (COVID-19), QL, shield installer-PCR, Respirat ory Specimen NOS Normal Sars-cov-2 negative negative Final [facility]: [address] [facility] [place] 06/24/2020 [facility] Pdf Report NOS No observation recorded. [facility]: [address] [facility] [place] 06/24/2020 SARS CoV 2 RNA (COVID-19), QL, shield installer-PCR, Respirat ory Specimen NOS Normal Sars-cov-2 negative negative Final [facility]: [address] [facility] [place] 06/03/2020 [facility] Pdf Report NOS No observation recorded. [facility]: [address] [facility] [place] 06/03/2020 SARS CoV 2 RNA (COVID-19), QL, shield installer-PCR, Respirat ory Specimen NOS Normal Sars-cov-2 negative negative Final [facility]: [address] [facility], Replaced By [facility] 01/11/2021 Abdominal Pain; Myofascial Pain; Lumbar Radiculopathy; Degeneration of Lumbar Intervertebral Disc; Degeneration of Lumbosacral Intervertebral Disc; Displacement of Lumbar Intervertebral Disc without Myelopathy; Intervertebral Disc Disorder; Spondylosis without Myelopathy; Lumbosacral Spondylosis without Myelopathy; Inflammation of Sacroiliac Joint Elvia Mccloud ER TECH: [address], [place] [address], Ph. 12/15/2020 Abdominal Pain; Myofascial Pain; Lumbar Radiculopathy; Degeneration of Lumbar Intervertebral Disc; Degeneration of Lumbosacral Intervertebral Disc; Displacement of Lumbar Intervertebral Disc without Myelopathy; Intervertebral Disc Disorder; Spondylosis without Myelopathy; Lumbosacral Spondylosis without Myelopathy Elvia Ramirezjoseph, ER TECH: [address] [facility] [address], [facility] [place] [address], Ph. 11/03/2020 Abdominal Pain; Myofascial Pain; Lumbar Radiculopathy; Degeneration of Lumbar Intervertebral Disc; Degeneration of Lumbosacral Intervertebral Disc; Displacement of Lumbar Intervertebral Disc without Myelopathy; Intervertebral Disc Disorder; Spondylosis without Myelopathy; Lumbosacral Spondylosis without Myelopathy Elvia Vazquezstephanie, ER TECH: [address] [address], [facility] [place] [address], Ph. 10/06/2020 Lumbosacral Spondylosis without Myelopathy; Spondylosis without Myelopathy; Degeneration of Lumbar Intervertebral Disc; Degeneration of Lumbosacral Intervertebral Disc; Displacement of Lumbar Intervertebral Disc without Myelopathy; Intervertebral Disc Disorder; Lumbar Radiculopathy; Myofascial Pain; Abdominal Pain Star Ramachandran MD: [address] [address], [facility] [place] [address], Ph. 10/03/2020 Pre-surgery Testing; Viral Screening Star Ramachandran MD: [address] [address], [place] [place] [address], Ph. [phone] 09/29/2020 Lumbosacral Spondylosis without Myelopathy; Spondylosis without Myelopathy; Degeneration of Lumbar Intervertebral Disc; Degeneration of Lumbosacral Intervertebral Disc; Displacement of Lumbar Intervertebral Disc without Myelopathy; Intervertebral Disc Disorder; Lumbar Radiculopathy; Myofascial Pain; Abdominal Pain Star Ramachandran MD: [address] [facility] [address], [facility] [place] [address], Ph. 09/26/2020 Pre-surgery Testing; Viral Screening Star Ramachandran MD: [address] [address], [place] [address], Ph. [phone] 09/22/2020 Abdominal Pain; Myofascial Pain; Lumbar Radiculopathy; Degeneration of Lumbar Intervertebral Disc; Degeneration of Lumbosacral Intervertebral Disc; Displacement of Lumbar Intervertebral Disc without Myelopathy; Intervertebral Disc Disorder; Spondylosis without Myelopathy; Lumbosacral Spondylosis without Myelopathy Elvia Mccloud ER TECH: [address] [address], [place] [address], Ph. 09/08/2020 Lumbosacral Spondylosis without Myelopathy; Spondylosis without Myelopathy; Degeneration of Lumbar Intervertebral Disc; Degeneration of Lumbosacral Intervertebral Disc; Displacement of Lumbar Intervertebral Disc without Myelopathy; Intervertebral Disc Disorder; Lumbar Radiculopathy; Myofascial Pain; Abdominal Pain Star Ramachandran MD: [address] [address], Ph. 09/05/2020 Pre-surgery Testing; Viral Screening Star Ramachandran MD: [address] [address], [place] [address], Ph. [phone] 08/26/2020 Abdominal Pain; Myofascial Pain; Lumbar Radiculopathy; Degeneration of Lumbar Intervertebral Disc; Degeneration of Lumbosacral Intervertebral Disc; Displacement of Lumbar Intervertebral Disc without Myelopathy; Intervertebral Disc Disorder; Spondylosis without Myelopathy; Lumbosacral Spondylosis without Myelopathy Elvia Mccloud ER TECH: [address] [address], [place] [address], Ph. 08/11/2020 Lumbosacral Spondylosis without Myelopathy; Spondylosis without Myelopathy; Degeneration of Lumbosacral Intervertebral Disc; Degeneration of Lumbar Intervertebral Disc; Abdominal Pain; Myofascial Pain; Lumbar Radiculopathy; Displacement of Lumbar Intervertebral Disc without Myelopathy; Intervertebral Disc Disorder Star Ramachandran MD: [address] [address], [place] [address], Ph. 08/08/2020 Pre-surgery Testing; Viral Screening Star Ramachandran MD: [address] [address], [place] [address], Ph. [phone] 07/18/2020 Abdominal Pain; Myofascial Pain; Lumbar Radiculopathy; Degeneration of Lumbar Intervertebral Disc; Degeneration of Lumbosacral Intervertebral Disc; Displacement of Lumbar Intervertebral Disc without Myelopathy; Intervertebral Disc Disorder; Spondylosis without Myelopathy; Lumbosacral Spondylosis without Myelopathy Elvia Mccloud ER TECH: [address] [address], [place] [address], Ph. 06/29/2020 Lumbar Radiculopathy; Degeneration of Lumbar Intervertebral Disc; Degeneration of Lumbosacral Intervertebral Disc; Displacement of Lumbar Intervertebral Disc without Myelopathy; Intervertebral Disc Disorder; Spondylosis without Myelopathy; Lumbosacral Spondylosis without Myelopathy; Myofascial Pain; Abdominal Pain Star Ramachandran MD: [address] [address], [place] [address], Ph. 06/24/2020 Pre-surgery Testing; Viral Screening Star Ramachandran MD: [address] [address], [place] [address], Ph. [phone] 06/21/2020 Abdominal Pain; Myofascial Pain; Lumbar Radiculopathy; Degeneration of Lumbar Intervertebral Disc; Degeneration of Lumbosacral Intervertebral Disc; Displacement of Lumbar Intervertebral Disc without Myelopathy; Intervertebral Disc Disorder; Spondylosis without Myelopathy; Lumbosacral Spondylosis without Myelopathy Elvia Mccloud ER TECH: [address] [place] [address], Ph. 06/08/2020 Lumbar Radiculopathy; Degeneration of Lumbar Intervertebral Disc; Degeneration of Lumbosacral Intervertebral Disc; Displacement of Lumbar Intervertebral Disc without Myelopathy; Intervertebral Disc Disorder; Spondylosis without Myelopathy; Lumbosacral Spondylosis without Myelopathy; Myofascial Pain; Abdominal Pain Star Ramachandran MD: [id number] [address], Ph. 06/03/2020 Pre-surgery Testing; Viral Screening Star Ramachandran MD: [address], [facility] [place] [address], Ph. [phone] 05/24/2020 Abdominal Pain; Myofascial Pain; Lumbar Radiculopathy; Degeneration of Lumbar Intervertebral Disc; Degeneration of Lumbosacral Intervertebral Disc; Displacement of Lumbar Intervertebral Disc without Myelopathy; Intervertebral Disc Disorder; Spondylosis without Myelopathy; Lumbosacral Spondylosis without Myelopathy Elvia Mccloud, ER TECH: [address], [place] [address], Ph. 04/26/2020 Chronic Pancreatitis; Abdominal Pain; Low Back Pain; Myofascial Pain; Lumbar Radiculopathy Elvia Mccloud, ER TECH: [address] [facility] [address], [facility] [place] [address], Ph. 02/23/2020 Chronic Pancreatitis; Abdominal Pain; Low Back Pain Elvia Mccloud, ER TECH: [address], [facility] [place] [address], Ph. 01/14/2020 Chronic Pancreatitis; Abdominal Pain; Low Back Pain Elvia Mccloud, ER TECH: [address], [place] [address], Ph. 05/07/2019 Chronic Pancreatitis; Abdominal Pain Elvia Mccloud, ER TECH: [address], [place] [address], Ph. 03/17/2019 Chronic Pancreatitis; Abdominal Pain Elvia Mccloud, ER TECH: [address], [place] [address], Ph. 01/26/2019 Chronic Pancreatitis; Abdominal Pain Elvia Mccloud, ER TECH: [address], [place] [address], Ph. 12/15/2018 Chronic Pancreatitis; Abdominal Pain Elvia Mccloud, ER TECH: [address], [place] [address], Ph. 11/04/2018 Chronic Pancreatitis; Abdominal Pain Star Ramachandran MD: [address], [place] [address], Ph. Social History Tobacco Smoking Status Heavy [...]
--- OUTSIDE RECORDS SUMMARY | 2021-03-10 17:25 | CCD ---
Author Author [facility] Organization [facility] Address Unknown Phone Unavailable Care Team Providers Care Community Relations Coordinator Name Role Phone Saima Ramachandran MD Unavailable Unavailable Saima Ramachandran MD Unavailable Unavailable Saima Ramachandran MD Unavailable Unavailable Boladeola, Saima Graves MD Unavailable Unavailable Bolla, Saima Graves MD Unavailable Unavailable Bolla, Saima Graves MD Unavailable Unavailable Bolla, Saima Graves MD Unavailable Unavailable Bolla, Saima Graves MD Unavailable Unavailable Bolla, Saima Graves MD Unavailable Unavailable Bolla, Saima Graves MD Unavailable Unavailable Bolla, Saima Graves MD Unavailable Unavailable Bolla, Saima Graves MD Unavailable Unavailable Bolla, Saima Graves MD Unavailable Unavailable Bolla, Saima Graves MD Unavailable Unavailable Bolla, Saima Graves MD Unavailable Unavailable Bolla, Saima Graves MD Unavailable Unavailable Boladeola, Saima Graves MD Unavailable Unavailable Bolla, Saima Graves MD Unavailable Unavailable Bolla, Saima Graves MD Unavailable Unavailable Bolla, Saima Graves MD Unavailable Unavailable Boladeola, Saima Graves MD Unavailable Unavailable Bolla, Saiam Graves MD Unavailable Unavailable Boladeola, Saima Graves MD Unavailable Unavailable Bolla, Saima Graves MD Unavailable Unavailable Boladeola, Saima Graves MD Unavailable Unavailable Bolla, Saima Graves MD Unavailable Unavailable Boladeola, Saima Graves MD Unavailable Unavailable Bolla, Saima Graves MD Unavailable Unavailable Boladeola, Saima Graves MD Unavailable Unavailable Bolla, Saima Graves MD Unavailable Unavailable Boladeola, Saima Graves MD Unavailable Unavailable Boladeola, Saima Graves MD Unavailable Unavailable Boladeola, Saima Graves MD Unavailable Unavailable Boladeola, Saima Graves MD Unavailable Unavailable Boladeola, Saima Graves MD Unavailable Unavailable Boladeola, Saima Graves MD Unavailable Unavailable Boladeola, Saima Graves MD Unavailable Unavailable Boladeola, Saima Graves MD Unavailable Unavailable BolSaima mir MD Unavailable Unavailable Boladeola, Saima Graves MD Unavailable Unavailable BolSaima mir MD Unavailable Unavailable BolSaima mir MD Unavailable Unavailable Boladeola, Saima Graves MD Unavailable Unavailable Boladeola, Saima Graves MD Unavailable Unavailable Boladeola, Saima Graves MD Unavailable Unavailable Boladeola, Saima Graves MD Unavailable Unavailable Boladeola, Saima Graves MD Unavailable Unavailable Boladeola, Saima Graves MD Unavailable Unavailable Boladeola, Saima Graves MD Unavailable Unavailable Jumalon, M Elvia AUTOMOTIVE PARTS COUNTER PERSON Unavailable Unavailable Jumalon, M Elvia AUTOMOTIVE PARTS COUNTER PERSON Unavailable Unavailable Jumalon, M Elvia AUTOMOTIVE PARTS COUNTER PERSON Unavailable Unavailable Jumalon, M Elvia AUTOMOTIVE PARTS COUNTER PERSON Unavailable Unavailable Jumalon, M Elvia AUTOMOTIVE PARTS COUNTER PERSON Unavailable Unavailable Jumalon, M Elvia AUTOMOTIVE PARTS COUNTER PERSON Unavailable Unavailable Jumalon, M Elvia AUTOMOTIVE PARTS COUNTER PERSON Unavailable Unavailable Jumalon, M Elvia AUTOMOTIVE PARTS COUNTER PERSON Unavailable Unavailable Jumalon, M Elvia AUTOMOTIVE PARTS COUNTER PERSON Unavailable Unavailable Jumalon, M Elvia AUTOMOTIVE PARTS COUNTER PERSON Unavailable Unavailable Jumalon, M Elvia AUTOMOTIVE PARTS COUNTER PERSON Unavailable Unavailable Jumalon, M Elvia AUTOMOTIVE PARTS COUNTER PERSON Unavailable Unavailable Jumalon, M Elvia AUTOMOTIVE PARTS COUNTER PERSON Unavailable Unavailable Jumalon, M Elvia AUTOMOTIVE PARTS COUNTER PERSON Unavailable Unavailable Jumalon, M Elvia AUTOMOTIVE PARTS COUNTER PERSON Unavailable Unavailable Jumalon, M Elvia AUTOMOTIVE PARTS COUNTER PERSON Unavailable Unavailable Jumalon, M Elvia AUTOMOTIVE PARTS COUNTER PERSON Unavailable Unavailable Jumalon, M Elvia AUTOMOTIVE PARTS COUNTER PERSON Unavailable Unavailable Jumalon, M Elvia AUTOMOTIVE PARTS COUNTER PERSON Unavailable Unavailable Jumalon, M Elvia AUTOMOTIVE PARTS COUNTER PERSON Unavailable Unavailable Jumalon, M Elvia AUTOMOTIVE PARTS COUNTER PERSON Unavailable Unavailable Jumalon, M Elvia AUTOMOTIVE PARTS COUNTER PERSON Unavailable Unavailable Jumalon, M Elvia AUTOMOTIVE PARTS COUNTER PERSON Unavailable Unavailable Jumalon, M Elvia AUTOMOTIVE PARTS COUNTER PERSON Unavailable Unavailable Jumalon, M Elvia AUTOMOTIVE PARTS COUNTER PERSON Unavailable Unavailable Jumalon, M Elvia AUTOMOTIVE PARTS COUNTER PERSON Unavailable Unavailable Jumalon, M Elvia AUTOMOTIVE PARTS COUNTER PERSON Unavailable Unavailable Jumalon, M Elvia AUTOMOTIVE PARTS COUNTER PERSON Unavailable Unavailable Jumalon, M Elvia AUTOMOTIVE PARTS COUNTER PERSON Unavailable Unavailable Jumalon, M Elvia AUTOMOTIVE PARTS COUNTER PERSON Unavailable Unavailable ARIF, O KRISTYN KIM Unavailable Unavailable ARIF, O KRISTYN KIM Unavailable Unavailable ARIF, O KRISTYN KIM Unavailable Unavailable ARIF, O KRISTYN KIM Unavailable Unavailable ARIF, O KRISTYN KIM Unavailable Unavailable ARIF, O KRISTYN KIM Unavailable Unavailable ARIF, O KRISTYN KIM Unavailable Unavailable ARIF, O KRISTYN KIM Unavailable Unavailable ARIF, O KRISTYN KIM Unavailable Unavailable ARIF, O KRISTYN KIM Unavailable Unavailable ARIF, O KRISTYN KIM Unavailable Unavailable ARIF, O KRISTYN KIM Unavailable Unavailable ARIF, O KRISTYN KIM Unavailable Unavailable ARIF, O KRISTYN KIM Unavailable Unavailable ARIF, O KRISTYN KIM Unavailable Unavailable ARIF, O KRISTYN KIM Unavailable Unavailable ARIF, O SIMONS MD Unavailable Unavailable ARIF, O KRISTYN KIM Unavailable Unavailable ARIF, O KRISTYN KIM Unavailable Unavailable ARIF, O KRISTYN KIM Unavailable Unavailable ARIF, O KRISTYN KIM Unavailable Unavailable ARIF, O KRISTYN KIM Unavailable Unavailable ARIF, O KRISTYN KIM Unavailable Unavailable ARIF, O KRISTYN KIM Unavailable Unavailable ARIF, O KRISTYN KIM Unavailable Unavailable ARIF, O KRISTYN KIM Unavailable Unavailable ARIF, O KRISTYN KIM Unavailable Unavailable ARIF, O KRISTYN KIM Unavailable Unavailable ARIF, O KRISTYN KIM Unavailable Unavailable ARIF, O KRISTYN KIM Unavailable Unavailable ARIF, O KRISTYN KIM Unavailable Unavailable ARIF, O KRISTYN KIM Unavailable Unavailable ARIF, O KRISTYN KIM Unavailable Unavailable ARIF, O KRISTYN KIM Unavailable Unavailable ARIF, O KRISTYN KIM Unavailable Unavailable ARIF, O KRISTYN KIM Unavailable Unavailable ARIF, O KRISTYN KIM Unavailable Unavailable ARIF, O KRISTYN KIM Unavailable Unavailable ARIF, O KRISTYN KIM Unavailable Unavailable ARIF, O KRISTYN KIM Unavailable Unavailable ARIF, O KRISTYN KIM Unavailable Unavailable ARIF, O KRISTYN KIM Unavailable Unavailable ARIF, O KRISTYN KIM Unavailable Unavailable ARIF, O KRISTYN KIM Unavailable Unavailable ARIF, O KRISTYN KIM Unavailable Unavailable Bambi-Tartell, M Janelle DO Unavailable Unavailabl e Bambi-Tartell, M Janelle DO Unavailable Unavailabl e Bambi-Tartell, M Janelle DO Unavailable Unavailabl e Bambi-Tartell, M Janelle DO Unavailable Unavailabl e Bambi-Tartell, M Janelle DO Unavailable Unavailabl e Bambi-Tartell, M Janelle DO Unavailable Unavailabl e Bambi-Tartell, M Janelle DO Unavailable Unavailabl e Bambi-Tartell, M Janelle DO Unavailable Unavailabl e Bambi-Tartell, M Janelle DO Unavailable Unavailabl e Bambi-Tartell, M Janelle DO Unavailable Unavailabl e Bambi-Tartell, M Janelle DO Unavailable Unavailabl e Bambi-Tartell, M Janelle DO Unavailable Unavailabl e Bambi-Tartell, M Janelle DO Unavailable Unavailabl e Bambi-Tartell, M Janelle DO Unavailable Unavailabl e Bambi-Tartell, M Janelle DO Unavailable Unavailabl e Bambi-Tartell, M Janelle DO Unavailable Unavailabl e Bambi-Tartell, M Janelle DO Unavailable Unavailabl e Bambi-Tartell, M Janelle DO Unavailable Unavailabl e Bambi-Tartell, M Janelle DO Unavailable Unavailabl e Bambi-Tartell, M Janelle DO Unavailable Unavailabl e Bambi-Tartell, M Janelle DO Unavailable Unavailabl e Bambi-Tartell, M Janelle DO Unavailable Unavailabl e Bambi-Tartell, M Janelle DO Unavailable Unavailabl e Bambi-Tartell, M Janelle DO Unavailable Unavailabl e Bambi-Tartell, M Janelle DO Unavailable Unavailabl e Bambi-Tartell, M Janelle DO Unavailable Unavailabl e Bambi-Tartell, M Janelle DO Unavailable Unavailabl e Bambi-Tartell, M Janelle DO Unavailable Unavailabl e Bambi-Tartell, M Janelle DO Unavailable Unavailabl e Bambi-Tartell, M Janelle DO Unavailable Unavailabl e Bambi-Tartell, M Janelle DO Unavailable Unavailabl e Bambi-Tartell, M Janelle DO Unavailable Unavailabl e Bambi-Tartell, M Janelle DO Unavailable Unavailabl e Bambi-Tartell, M Janelle DO Unavailable Unavailabl e Bambi-Tartell, M Janelle DO Unavailable Unavailabl e Bambi-Tartell, M Janelle DO Unavailable Unavailabl e Bambi-Tartell, M Janelle DO Unavailable Unavailabl e Bambi-Tartell, M Janelle DO Unavailable Unavailabl e Bambi-Tartell, M Janelle DO Unavailable Unavailabl e Bambi-Tartell, M Janelle DO Unavailable Unavailabl e Bambi-Tartell, M Janelle DO Unavailable Unavailabl e Bambi-Tartell, M Janelle DO Unavailable Unavailabl e Bambi-Tartell, M Janelle DO Unavailable Unavailabl e Bambi-Tartell, M Janelle DO Unavailable Unavailabl e Bambi-Tartell, M Janelle DO Unavailable Unavailabl e Bambi-Tartell, M Janelle DO Unavailable Unavailabl e Bambi-Tartell, M Janelle DO Unavailable Unavailabl e Bambi-Tartell, M Janelle DO Unavailable Unavailabl e Bambi-Tartell, M Janelle DO Unavailable Unavailabl e Bambi-Tartell, M Janelle DO Unavailable Unavailabl e Bambi-Tartell, M Janelle DO Unavailable Unavailabl e Bambi-Tartell, M Janelle DO Unavailable Unavailabl e Bambi-Tartell, M Janelle DO Unavailable Unavailabl e Bambi-Tartell, M Janelle DO Unavailable Unavailabl e Re-disclosure Warning The records that you are about to access may contain information from federally-assisted alcohol or drug abuse programs. If such information is present, then the following federally mandated warning applies: This information has been disclosed to you from records protected by federal confidentiality rules (42 CFR part 2). The federal rules prohibit you from making any further disclosure of this information unless further disclosure is expressly permitted by the written consent of the person to whom it pertains or as otherwise permitted by 42 CFR part 2. A general authorization for the release of medical or other information is NOT sufficient for this purpose. The Federal rules restrict any use of the information to criminally investigate or prosecute any alcohol or drug abuse patient.The records that you are about to access may contain highly sensitive health information, the redisclosure of which is protected by Article 27-F of the [facility] Public Health law. If you continue you may have access to information: Regarding HIV / AIDS; Provided by facilities licensed or operated by the [facility] Office of Mental Health; or Provided by the [facility] Office for People With Developmental Disabilities. If such information is present, then the following [facility] mandated warning applies: This information has been disclosed to you from confidential records which are protected by state law. State law prohibits you from making any further disclosure of this information without the specific written consent of the person to whom it pertains, or as otherwise permitted by law. Any unauthorized further disclosure in violation of state law may result in a fine or care home sentence or both. A general authorization for the release of medical or other information is NOT sufficient authorization for further disc losure. Allergies and Adverse Reactions Type Description Substance Reaction Status Data Source(s ) Drug Allergy NKDA NKDA MEDENT (Ashaal lawrence [facility], ) Family History Family Member Name Family Member Gender Family Member Status Date o f Status Description Data Source(s) Unknown Unknown Problem [facility] Encounters Encounter Providers Location Date Indications Data Source(s ) Star Ramachandran MD: [address], [address] [place], [place] [address], Ph. Attender: Star Ramachandran MD [place] - [facility] 03/08/2021 12:00:00 AM EDT [place] ([facility]) Star Ramachandran MD: [address], [facility] [place], [place] [address], Ph. [phone] Attender: Star Ramachandran MD [place] - [facility] 03/03/2021 12:00:00 AM EDT [place] ([facility]) Star Ramachandran MD: [address], [facility] [place], [place] [address], Ph. [phone] Attender: Star Ramachandran MD [place] - [facility] 03/03/2021 12:00:00 AM EDT [place] ([facility]) Elvia Mccloud, WICK TENDER: [address], [place] [address], Ph. Attender: Elvia MYERS [facility] 02/22/2021 12:00:00 AM EDT ATHSamantha BECKHAM ([facility]) Elvia Mccloud, WICK TENDER: [address], [place] [address], Ph. Attender: Elvia MYERS [place] - [facility] 02/22/2021 12:00:00 AM EDT ATHE NA ([facility]) Outpatient [address] [facility] [address] 02/22/2021 12:00:00 AM EDT eCW1 ([facility]) Elvia Mccloud, WICK TENDER: [address], [place] [address], Ph. Attender: Elvia Mccloud [facility] - [facility] 02/22/2021 12:00:00 AM EDT ATHSamantha NA ([facility]) Unknown [address] [facility] [address] 02/14/2021 12:00:00 AM EDT eCW1 ([facility]) Star Ramachandran MD: [address], [facility] [place] [address], Ph. Attender: Star Ramachandran MD [place] - [facility] 01/18/2021 12:00:00 AM EDT [place] ([facility]) Star Ramachandran MD: [address], [place] [address], Ph. Attender: Star Ramachandran MD [place] - [facility] 01/18/2021 12:00:00 AM EDT [place] ([facility]) Star Ramachandran MD: [address], [place] [address], Ph. Attender: Star Ramachandran MD [place] - [facility] 01/18/2021 12:00:00 AM EDT [place] ([facility]) Star Ramachandran MD: [address], [place] [address], Ph. Attender: Star Ramachandran MD [place] - [facility] 01/18/2021 12:00:00 AM EDT [place] ([facility]) Star Ramachandran MD: [address], [address], [place] [address], Ph. [phone] Attender: Star Ramachandran MD [place] - [facility] 01/13/2021 12:00:00 AM EDT [place] ([facility]) Star Ramachandran MD: [address], [address], [place] [address], Ph. [phone] Attender: Star Ramachandran MD [place] - [facility] 01/13/2021 12:00:00 AM EDT [place] ([facility]) Star Ramachandran MD: [address], [address], [place] [address], Ph. [phone] Attender: Star Ramachandran MD [place] - [facility] 01/13/2021 12:00:00 AM EDT [place] ([facility]) Star Ramachandran MD: [address], [address], [place] [address], Ph. [phone] Attender: Star Ramachandran MD [place] - [facility] 01/13/2021 12:00:00 AM EDT [place] ([facility]) Star Ramachandran MD: [address], [address], [place] [address], Ph. [phone] Attender: Star Ramachandran MD [place] - [facility] 01/13/2021 12:00:00 AM EDT [place] ([facility]) Elvia Mccloud, WICK TENDER: [address], [address], [place] [address], Ph. Attender: Elvia Mccloud [facility] - [facility] 01/11/2021 12:00:00 AM EDT ATHE NA ([facility]) Elvia Mccloud, WICK TENDER: [address], [place] [address], Ph. Attender: Elvia Mccloud [facility] - [facility] 01/11/2021 12:00:00 AM EDT ATHE NA ([facility]) Elvia Mccloud, WICK TENDER: [address], [place] [address], Ph. Attender: Elvia Mccloud [facility] - [facility] 01/11/2021 12:00:00 AM EDT ATHE NA ([facility]) Elvia Mccloud, WICK TENDER: [address], [place] [address], Ph. Attender: Elvia Mccloud [facility] - [facility] 01/11/2021 12:00:00 AM EDT ATHE NA ([facility]) Elvia Mccloud, WICK TENDER: [address], [place] [address], Ph. Attender: Elvia Mccloud [facility] - [facility] 01/11/2021 12:00:00 AM EDT ATHE NA ([facility]) Elvia Mccloud, WICK TENDER: [address], [place] [address], Ph. Attender: Elvia Mccloud [facility] - [facility] 01/11/2021 12:00:00 AM EDT ATHE NA ([facility]) Elvia Aguirre Taylorstephanie, WICK TENDER: [address], [address], [place] [address], Ph. Attender: Elvia Mccloud [facility] - [facility] 12/15/2020 12:00:00 AM EDT ATHE NA ([facility]) Elvia Mccloud, WICK TENDER: [address], [address], [place] [address], Ph. Attender: Elvia Mccloud [facility] - [facility] 12/15/2020 12:00:00 AM EDT ATHE NA ([facility]) Elvia Mccloud, WICK TENDER: [address], [place] [address], Ph. Attender: Elvia Mccloud [facility] - [facility] 12/15/2020 12:00:00 AM EDT ATHE NA ([facility]) Elvia Mccloud, WICK TENDER: [address], [place] [address], Ph. Attender: Elvia Mccloud [facility] - [facility] 12/15/2020 12:00:00 AM EDT ATHE NA ([facility]) Elvia Mccloud, WICK TENDER: [address], [address], [place] [address], Ph. Attender: Elvia Mccloud [facility] - [facility] 12/15/2020 12:00:00 AM EDT ATHE NA ([facility]) Elvia Mccloud, WICK TENDER: [address], [place] [address], Ph. Attender: Elvia Mccloud [facility] - [facility] 12/15/2020 12:00:00 AM EDT ATHE NA ([facility]) Elvia Mccloud, WICK TENDER: [address], [place] [address], Ph. Attender: Elvia Mccloud [facility] - [facility] 12/15/2020 12:00:00 AM EDT ATHE NA ([facility]) [place] [address] [facility] [address] 12/06/2020 12:00:00 AM EDT eCW1 ([facility]) Unknown [address] [facility] [address] 12/06/2020 12:00:00 AM EDT eCW1 ([facility]) Outpatient [address] [facility] [address] 11/30/2020 12:00:00 AM EDT eCW1 ([facility]) Unknown [address] [facility] [address] 11/22/2020 12:00:00 AM EDT eCW1 ([facility]) Elvia Aguirre Taylorstephanie, WICK TENDER: [address], [place] [address], Ph. Attender: Elvia Mccloud [facility] - [facility] 11/03/2020 12:00:00 AM EDT ATHE NA ([facility]) Elvia Mccloud, WICK TENDER: [address], [place] [address], Ph. Attender: Elvia Mccloud [facility] - [facility] 11/03/2020 12:00:00 AM EDT ATHE NA ([facility]) Elvia Aguirre Taylorstephanie, WICK TENDER: [address], [place] [address], Ph. Attender: Elvia Mccloud [facility] - [facility] 11/03/2020 12:00:00 AM EDT ATHE NA ([facility]) Elvia Mccloud, WICK TENDER: [address], [place] [address], Ph. Attender: Elvia Mccloud [facility] - [facility] 11/03/2020 12:00:00 AM EDT ATHE NA ([facility]) Elvia Mccloud, WICK TENDER: [address], [place] [address], Ph. Attender: Elvia Mccloud [facility] - [facility] 11/03/2020 12:00:00 AM EDT ATHE NA ([facility]) Elvia Mccloud, WICK TENDER: [address], [place] [address], Ph. Attender: Elvia Mccloud [facility] - [facility] 11/03/2020 12:00:00 AM EDT ATHSamantha NA ([facility]) Elvia Mccloud, WICK TENDER: [address], [place] [address], Ph. Attender: Elvia Mccloud [facility] - [facility] 11/03/2020 12:00:00 AM EDT ATHE NA ([facility]) Unknown [address] [facility] [address] 10/21/2020 12:00:00 AM EDT eC ([facility]) Star Ramachandran MD: [address], [place] [address], Ph. Attender: Star Ramachandran MD [place] - [facility] 10/06/2020 12:00:00 AM EDT SANTH[place] ([facility]) Star Ramachandran MD: [address], [address], [place] [address], Ph. Attender: Star Ramachandran MD [place] - [facility] 10/06/2020 12:00:00 AM EDT SANTH[place] ([facility]) Star Ramachandran MD: [address], [address], [place] [address], Ph. Attender: Star Ramachandran MD [place] - [facility] 10/06/2020 12:00:00 AM EDT [place] ([facility]) Satr Ramachandran MD: [address], [address], [place] [address], Ph. Attender: Star Ramachandran MD [place] - [facility] 10/06/2020 12:00:00 AM EDT [place] ([facility]) Star Ramachandran MD: [address], [address], [place] [address], Ph. Attender: Star Ramachandran MD [place] - [facility] 10/06/2020 12:00:00 AM EDT [place] ([facility]) Star Ramachandran MD: [address], [address], [place] [address], Ph. Attender: Star Ramachandran MD [place] - [facility] 10/06/2020 12:00:00 AM EDT [place] ([facility]) Star Ramachandran MD: [address], [address], [place] [address], Ph. Attender: Star Ramachandran MD [place] - [facility] 10/06/2020 12:00:00 AM EDT [place] ([facility]) Star Ramachandran MD: [address], [address], [place] [address], Ph. Attender: Star Ramachandran MD [place] - [facility] 10/06/2020 12:00:00 AM EDT [place] ([facility]) Star Ramachandran MD: [address]87 [address], [address], [place] [address], Ph. [phone] Attender: Star Ramachandran MD [place] - [facility] 10/03/2020 12:00:00 AM EDT [place] ([facility]) Star Ramachandran MD: [address]192 [address], [address], [place] [address], Ph. [phone] Attender: Star Ramachandran MD [place] - [facility] 10/03/2020 12:00:00 AM EDT [place] ([facility]) Star Ramachandran MD: [address], [address], [place] [address], Ph. [phone] Attender: Star HOFFMAN - [facility] 10/03/2020 12:00:00 AM EDT [place] ([facility]) Star Ramachandran MD: [address]90 [address], [address], [place] [address], Ph. [phone] Attender: Star HOFFMAN - [facility] 10/03/2020 12:00:00 AM EDT [place] ([facility]) Star Ramachandran MD: [address]227 [address], [address], [place] [address], Ph. [phone] Attender: Star Ramachandran MD [place] - [facility] 10/03/2020 12:00:00 AM EDT [place] ([facility]) Star Ramachandran MD: [address]50 [address], [address], [place] [address], Ph. [phone] Attender: Star HOFFMAN - [facility] 10/03/2020 12:00:00 AM EDT [place] ([facility]) Star Ramachandran MD: [address]93 [address], [address], [place] [address], Ph. [phone] Attender: Star HOFFMAN - [facility] 10/03/2020 12:00:00 AM EDT [place] ([facility]) Star Ramachandran MD: [address]227 [address], [address], [place] [address], Ph. [phone] Attender: Star HOFFMAN - [facility] 10/03/2020 12:00:00 AM EDT [place] ([facility]) Star Ramachandran MD: 15442 [address], [address], [place] [address], Ph. [phone] Attender: Star HOFFMAN - [facility] 10/03/2020 12:00:00 AM EDT [place] ([facility]) Star Ramachandran MD: 96138 [address], [address], [place] [address], Ph. Attender: Star HOFFMAN - [facility] 09/29/2020 12:00:00 AM EDT [place] ([facility]) Star Ramachandran MD: [address]1955 [address], [address], [place] [address], Ph. Attender: Star HOFFMAN - [facility] 09/29/2020 12:00:00 AM EDT [place] ([facility]) Star Ramachandran MD: 14175 [address], [address], [place] [address], Ph. Attender: Star Ramachandran MD [place] - [facility] 09/29/2020 12:00:00 AM EDT [place] ([facility]) Star Ramachandran MD: 47190 [address], [address], [place] [address], Ph. Attender: Star Ramachandran MD [place] - [facility] 09/29/2020 12:00:00 AM EDT [place] ([facility]) Star Ramachandran MD: [address]01 [address], [address], [place] [address], Ph. Attender: Star HOFFMAN - [facility] 09/29/2020 12:00:00 AM EDT [place] ([facility]) Star Ramachandran MD: [address]41 [address], [address], [place] [address], Ph. Attender: Star HOFFMAN - [facility] 09/29/2020 12:00:00 AM EDT [place] ([facility]) Star Ramachandran MD: 92207 [address], [address], [place] [address], Ph. Attender: Star HOFFMAN - [facility] 09/29/2020 12:00:00 AM EDT [place] ([facility]) Star Ramachandran MD: 86726 [address], [address], [place] [address], Ph. Attender: Star HOFFMAN - [facility] 09/29/2020 12:00:00 AM EDT [place] ([facility]) Star Ramachandran MD: 08328 [address], [address], [place] [address], Ph. Attender: Star Ramachandran MD [place] - [facility] 09/29/2020 12:00:00 AM EDT [place] ([facility]) Star Ramachandran MD: 48677 [address], [address], [place] [address], Ph. Attender: Star HOFFMAN - [facility] 09/29/2020 12:00:00 AM EDT [place] ([facility]) Star Ramachandran MD: [address]134 [address], [address], [place] [address], Ph. [phone] Attender: Star HOFFMAN - [facility] 09/26/2020 12:00:00 AM EDT [place] ([facility]) Star Ramachandran MD: [address]185 [address], [address], [place] [address], Ph. [phone] Attender: Star HOFFMAN - [facility] 09/26/2020 12:00:00 AM EDT [place] ([facility]) Star Ramachandran MD: [address]5577 [address], [address], [place] [address], Ph. [phone] Attender: Star HOFFMAN - [facility] 09/26/2020 12:00:00 AM EDT [place] ([facility]) Star Ramachandran MD: [address]5465 [address], [address], [place] [address], Ph. [phone] Attender: Star HOFFMAN - [facility] 09/26/2020 12:00:00 AM EDT [place] ([facility]) Star Ramachandran MD: [address]12 [address], [address], [place] [address], Ph. [phone] Attender: Star Ramachandran MD [place] - [facility] 09/26/2020 12:00:00 AM EDT [place] ([facility]) Star Ramachandran MD: [address]115 [address], [address], [place] [address], Ph. [phone] Attender: Star Ramachandran MD [place] - [facility] 09/26/2020 12:00:00 AM EDT [place] ([facility]) Star Ramachandran MD: 98107 [address], [address], [place] [address], Ph. [phone] Attender: Star Ramachandran MD [place] - [facility] 09/26/2020 12:00:00 AM EDT [place] ([facility]) Star Ramachandran MD: [address]403 [address], [address], [place] [address], Ph. [phone] Attender: Star Ramachandran MD [place] - [facility] 09/26/2020 12:00:00 AM EDT [place] ([facility]) Star Ramachandran MD: 44729 [address], [address], [place] [address], Ph. [phone] Attender: Star HOFFMAN - [facility] 09/26/2020 12:00:00 AM EDT [place] ([facility]) Star Ramachandran MD: [address]72 [address], [address], [place] [address], Ph. [phone] Attender: Star HOFFMAN - [facility] 09/26/2020 12:00:00 AM EDT [place] ([facility]) Star Ramachandran MD: [address]368 [address], [address], [place] [address], Ph. [phone] Attender: Star Ramachandran MD [place] - [facility] 09/26/2020 12:00:00 AM EDT [place] ([facility]) Elvia Mccloud, WICK TENDER: [address], [place] [address], Ph. Attender: Elvia Mccloud [facility] - [facility] 09/22/2020 12:00:00 AM EDT [place] ([facility]) Elvia Mccloud, WICK TENDER: [address], [place] [address], Ph. Attender: Elvia Mccloud [facility] - [facility] 09/22/2020 12:00:00 AM EDT [place] ([facility]) Elvia Mccloud, WICK TENDER: [address], [place] [address], Ph. Attender: Elvia Mccloud [facility] - [facility] 09/22/2020 12:00:00 AM EDT [place] ([facility]) Elvia Mccloud, WICK TENDER: [address], [address], [place] [address], Ph. Attender: Elvia Mccloud [facility] - [facility] 09/22/2020 12:00:00 AM EDT [place] ([facility]) Elvia Mccloud, WICK TENDER: [address], [place] [address], Ph. Attender: Elvia Taylorthaisjoseph [facility] - [facility] 09/22/2020 12:00:00 AM EDT [place] ([facility]) Elvia Mccloud, WICK TENDER: [address], [place] [address], Ph. Attender: Elvia Mccloud [facility] - [facility] 09/22/2020 12:00:00 AM EDT [place] ([facility]) Elvia Mccloud, WICK TENDER: [address], [place] [address], Ph. Attender: Elvia Mccloud [facility] - [facility] 09/22/2020 12:00:00 AM EDT [place] ([facility]) Elvia Mccloud, WICK TENDER: [address], [place] [address], Ph. Attender: Elvia Mccloud [facility] - [facility] 09/22/2020 12:00:00 AM EDT [place] ([facility]) Elvia Mccloud, WICK TENDER: [address], [place] [address], Ph. Attender: Elvia Mccloud [facility] - [facility] 09/22/2020 12:00:00 AM EDT [place] ([facility]) Elvia Mccloud, WICK TENDER: [address], [place] [address], Ph. Attender: Elvia Mccloud [facility] - [facility] 09/22/2020 12:00:00 AM EDT [place] ([facility]) Elvia Mccloud, WICK TENDER: [address], [address], [place] [address], Ph. Attender: Elvia Mccloud [facility] - [facility] 09/22/2020 12:00:00 AM EDT ATHSamantha [facility] ([facility]) Elvia Mccloud, WICK TENDER: [address], [address], [place] [address], Ph. Attender: Elvia Mccloud [facility] - [facility] 09/22/2020 12:00:00 AM EDT ATHSamantha [facility]ECKH[facility] ([facility]) Outpatient Attender: KRISTYN GEORGE MD [id number] 09/16/2020 12:00:00 AM EDT [facility] Unknown [address] [facility], [facility] [address] 09/13/2020 12:00:00 AM EDT [facility] ([facility]) Star Ramacahndran MD: 29474 [address], [place] [address], Ph. Attender: Star HOFFMAN - [facility] 09/08/2020 12:00:00 AM EDT [place] ([facility]) Star Ramachandran MD: [address]33 [address], [place] [address], Ph. Attender: Star HOFFMAN - [facility] 09/08/2020 12:00:00 AM EDT [place] ([facility]) Star Ramachandran MD: [address]15 [address], [place] [address], Ph. Attender: Star HOFFMAN - [facility] 09/08/2020 12:00:00 AM EDT [place] ([facility]) Star Ramachandran MD: 87765 [address], [address], [place] [address], Ph. Attender: Star Ramachandran MD [place] - [facility] 09/08/2020 12:00:00 AM EDT [place] ([facility]) Star Ramachandran MD: 88789 [address], [address], [place] [address], Ph. Attender: Star Ramachandran MD [place] - [facility] 09/08/2020 12:00:00 AM EDT [place] ([facility]) Star Ramachandran MD: 75674 [address], [address], [place] [address], Ph. Attender: Star Ramachandran MD [place] - [facility] 09/08/2020 12:00:00 AM EDT [place] ([facility]) Star Ramachandran MD: 96236 [address], [address], [place] [address], Ph. Attender: Star Ramachandran MD [place] - [facility] 09/08/2020 12:00:00 AM EDT [place] ([facility]) Star Ramachandran MD: [address]41 [address], [address], [place] [address], Ph. Attender: Star HOFFMAN - [facility] 09/08/2020 12:00:00 AM EDT [place] ([facility]) Star Ramachandran MD: 52032 [address], [address], [place] [address], Ph. Attender: Star HOFFMAN - [facility] 09/08/2020 12:00:00 AM EDT [place] ([facility]) Star Ramachandran MD: 81187 [address], [address], [place] [address], Ph. Attender: Star Ramachandran MD [place] - [facility] 09/08/2020 12:00:00 AM EDT [place] ([facility]) Star Ramachandran MD: 11140 [address], [address], [place] [address], Ph. Attender: Star Ramachandran MD [place] - [facility] 09/08/2020 12:00:00 AM EDT [place] ([facility]) Star Ramachandran MD: 09755 [address], [address], [place] [address], Ph. Attender: Star Ramachandran MD [place] - [facility] 09/08/2020 12:00:00 AM EDT [place] ([facility]) Star Ramachandran MD: 52411 [address], [address], [place] [address], Ph. Attender: Star Ramachandran MD [place] - [facility] 09/08/2020 12:00:00 AM EDT [place] ([facility]) Star Ramachandran MD: 11058 [address], [address], [place] [address], Ph. [phone] Attender: Star Ramachandran MD [place] - [facility] 09/05/2020 12:00:00 AM EDT [place] ([facility]) Star Ramachandran MD: 77546 [address], [address], [place] [address], Ph. [phone] Attender: Star HOFFMAN - [facility] 09/05/2020 12:00:00 AM EDT [place] ([facility]) Star Ramachandran MD: 30232 [address], [address], [place] [address], Ph. [phone] Attender: Star Ramachandran MD [place] - [facility] 09/05/2020 12:00:00 AM EDT [place] ([facility]) Star Ramachandran MD: 81074 [address], [address], [place] [address], Ph. [phone] Attender: Star Ramachandran MD [place] - [facility] 09/05/2020 12:00:00 AM EDT [place] ([facility]) Star Ramachandran MD: 43535 [address], [address], [place] [address], Ph. [phone] Attender: Star Ramachandran MD [place] - [facility] 09/05/2020 12:00:00 AM EDT [place] ([facility]) Star Ramachandran MD: 33235 [address], [address], [place] [address], Ph. [phone] Attender: Star Ramachandran MD [place] - [facility] 09/05/2020 12:00:00 AM EDT [place] ([facility]) Star Ramachandran MD: 22939 [address], [address], [place] [address], Ph. [phone] Attender: Star Ramachandran MD [place] - [facility] 09/05/2020 12:00:00 AM EDT [place] ([facility]) Star Ramachandran MD: 58456 [address], [address], [place] [address], Ph. [phone] Attender: Star Ramachandran MD [place] - [facility] 09/05/2020 12:00:00 AM EDT [place] ([facility]) Star Ramachandran MD: 17540 [address], [address], [place] [address], Ph. [phone] Attender: Star Ramachandran MD [place] - [facility] 09/05/2020 12:00:00 AM EDT [place] ([facility]) Star Ramachandran MD: 39255 [address], [place] [address], Ph. [phone] Attender: Star Ramachandran MD [place] - [facility] 09/05/2020 12:00:00 AM EDT [place] ([facility]) Star Ramachandran MD: 95173 [address], [place] [address], Ph. [phone] Attender: Star HOFFMAN - [facility] 09/05/2020 12:00:00 AM EDT [place] ([facility]) Star Ramachandran MD: 43096 [address], [place] [address], Ph. [phone] Attender: Star HOFFMAN - [facility] 09/05/2020 12:00:00 AM EDT [place] ([facility]) Star Ramachandran MD: 07960 [address], [place] [address], Ph. [phone] Attender: Star Ramachandran MD [place] - [facility] 09/05/2020 12:00:00 AM EDT [place] ([facility]) Star Ramachandran MD: 44585 [address], [place] [address], Ph. [phone] Attender: Star Ramachandran MD [place] - [facility] 09/05/2020 12:00:00 AM EDT [place] ([facility]) Outpatient Attender: KRISTYN GEORGE MD 09/01/2020 12:00:[address] [facility], WICK TENDER: [address], [place] [address], Ph. Attender: Elvia Mccloud [facility] - [facility] 08/26/2020 12:00:00 AM EDT [place] ([facility]) Elvia Mccloud, WICK TENDER: [address]60 [address], [place] [address], Ph. Attender: Elvia Mccloud [facility] - [facility] 08/26/2020 12:00:00 AM EDT [place] ([facility]) Elvia Mccloud, WICK TENDER: [address], [facility] [place] [address], Ph. Attender: Elvia Mccloud [facility] - [facility] 08/26/2020 12:00:00 AM EDT [place] ([facility]) Elvia Mccloud, WICK TENDER: [address]84 [address], [place] [address], Ph. Attender: Elvia Mccloud [facility] - [facility] 08/26/2020 12:00:00 AM EDT [place] ([facility]) Elvia Mccloud, WICK TENDER: [address]138 [address], [place] [address], Ph. Attender: Elvia Mccloud [facility] - [facility] 08/26/2020 12:00:00 AM EDT [place] ([facility]) Elvia Mccloud, WICK TENDER: [address], [place] [address], Ph. Attender: Elvia Mccloud [facility] - [facility] 08/26/2020 12:00:00 AM EDT [place] ([facility]) Elvia Mccloud, WICK TENDER: [address]84 [address], [place] [address], Ph. Attender: Elvia Mccloud [facility] - [facility] 08/26/2020 12:00:00 AM EDT [place] ([facility]) Elvia Mccloud, WICK TENDER: [address]80 [address], [place] [address], Ph. Attender: Elvia Mccloud [facility] - [facility] 08/26/2020 12:00:00 AM EDT [place] ([facility]) Elvia Mccloud, WICK TENDER: [address]92 [address], [place] [address], Ph. Attender: Elvia Mccloud [facility] - [facility] 08/26/2020 12:00:00 AM EDT [place] ([facility]) Elvia Mccloud, WICK TENDER: [address]21 [address], [place] [address], Ph. Attender: Elvia Mccloud [facility] - [facility] 08/26/2020 12:00:00 AM EDT [place] ([facility]) Elvia Mccloud, WICK TENDER: [address]31 [address], [place] [address], Ph. Attender: Elvia Mccloud [facility] - [facility] 08/26/2020 12:00:00 AM EDT [place] ([facility]) Elvia Mccloud, WICK TENDER: 60289 [address], [place] [address], Ph. Attender: Elvia Mccloud [facility] - [facility] 08/26/2020 12:00:00 AM EDT [place] [place] ([facility]) Elvia Mccloud, WICK TENDER: [address]115 [address], [place] [address], Ph. Attender: Elvia Mccloud [facility] - [facility] 08/26/2020 12:00:00 AM EDT [place] [place] ([facility]) Elvia Mccloud, WICK TENDER: [address]751 [address], [place] [address], Ph. Attender: Elvia Mccloud [facility] - [facility] 08/26/2020 12:00:00 AM EDT [place] [place] ([facility]) Elvia Mccloud, WICK TENDER: [address]804 [address], [place] [address], Ph. Attender: Elvia Mccloud [facility] - [facility] 08/26/2020 12:00:00 AM EDT ATHE NA ([facility]) Unknown [id number] [facility] [address] 08/22/2020 12:00:00 AM EDT eCW1 ([facility]) Unknown [id number] [facility] [address] 08/18/2020 12:00:00 AM EDT eCW1 ([facility]) Unknown [id number] [facility] [address] 08/18/2020 12:00:00 AM EDT eCW1 ([facility]) Star Ramachandran MD: [address], [place] [address], Ph. Attender: Star HOFFMAN - [facility] 08/11/2020 12:00:00 AM EDT [place] ([facility]) Star Ramachandarn MD: 46931 [address], [place] [address], Ph. Attender: Star HOFFMAN - [facility] 08/11/2020 12:00:00 AM EDT [place] ([facility]) Star Ramachandran MD: 64658 [address], [address], [place] [address], Ph. Attender: Star HOFFMAN - [facility] 08/11/2020 12:00:00 AM EDT [place] ([facility]) Star Ramachandran MD: 05170 [address], [address], [place] [address], Ph. Attender: Star HOFFMAN - [facility] 08/11/2020 12:00:00 AM EDT [place] ([facility]) Star Ramachandran MD: 85167 [address], [place] [address], Ph. Attender: Star HOFFMAN - [facility] 08/11/2020 12:00:00 AM EDT [place] ([facility]) Star Ramachandran MD: 08702 [address], [address], [place] [address], Ph. Attender: Star HOFFMAN - [facility] 08/11/2020 12:00:00 AM EDT [place] ([facility]) Star Ramachandran MD: 03779 [address], [address], [place] [address], Ph. Attender: Star Ramachandran MD [place] - [facility] 08/11/2020 12:00:00 AM EDT [place] ([facility]) Star Ramachandran MD: 39744 [address], [address], [place] [address], Ph. Attender: Star HOFFMAN - [facility] 08/11/2020 12:00:00 AM EDT [place] ([facility]) Star Ramachandran MD: 66783 [address], [address], [place] [address], Ph. Attender: Star Ramachandran MD [place] - [facility] 08/11/2020 12:00:00 AM EDT [place] ([facility]) Star Ramachandran MD: 20486 [address], [address], [place] [address], Ph. Attender: Star HOFFMAN - [facility] 08/11/2020 12:00:00 AM EDT [place] ([facility]) Star Ramachandran MD: 84428 [address], [place] [address], Ph. Attender: Star HOFFMAN - [facility] 08/11/2020 12:00:00 AM EDT [place] ([facility]) Star Ramachandran MD: 39318 [address], [address], [place] [address], Ph. Attender: Star HOFFMAN - [facility] 08/11/2020 12:00:00 AM EDT [place] ([facility]) Star Ramachandran MD: 29120 [address], [address], [place] [address], Ph. Attender: Star Ramachandran MD [place] - [facility] 08/11/2020 12:00:00 AM EDT [place] ([facility]) Star Ramachandran MD: 45372 [address], [address], [place] [address], Ph. Attender: Star Ramachandran MD [place] - [facility] 08/11/2020 12:00:00 AM EDT [place] ([facility]) Star Ramachandran MD: 04843 [address], [address], [place] [address], Ph. Attender: Star Ramachandran MD [place] - [facility] 08/11/2020 12:00:00 AM EDT [place] ([facility]) Star Ramachandran MD: 51510 [address], [address], [place] [address], Ph. Attender: Star HOFFMAN - [facility] 08/11/2020 12:00:00 AM EDT [place] ([facility]) Star Ramachandran MD: 93917 [address], [address], [place] [address], Ph. [phone] Attender: Star HOFFMAN - [facility] 08/08/2020 12:00:00 AM EDT [place] ([facility]) Star Ramachandran MD: 75965 [address], [address], [place] [address], Ph. [phone] Attender: Star HOFFMAN - [facility] 08/08/2020 12:00:00 AM EDT [place] ([facility]) Star Ramachandran MD: 18946 [address], [address], [place] [address], Ph. [phone] Attender: Star Ramachandran MD [place] - [facility] 08/08/2020 12:00:00 AM EDT [place] ([facility]) Star Ramachandran MD: 00548 [address], [address], [place] [address], Ph. [phone] Attender: Star Ramachandran MD [place] - [facility] 08/08/2020 12:00:00 AM EDT [place] ([facility]) Star Ramachandran MD: 37505 [address], [address], [place] [address], Ph. [phone] Attender: Star Ramachandran MD [place] - [facility] 08/08/2020 12:00:00 AM EDT [place] ([facility]) Star Ramachandran MD: 78227 [address], [address], [place] [address], Ph. [phone] Attender: Star Ramachandran MD [place] - [facility] 08/08/2020 12:00:00 AM EDT [place] ([facility]) Star Ramachandran MD: 59441 [address], [address], [place] [address], Ph. [phone] Attender: Star Ramachandran MD [place] - [facility] 08/08/2020 12:00:00 AM EDT [place] ([facility]) Star Ramachandran MD: 33434 [address], [address], [place] [address], Ph. [phone] Attender: Star Ramachandran MD [place] - [facility] 08/08/2020 12:00:00 AM EDT [place] ([facility]) Star Ramachandran MD: 51109 [address], [address], [place] [address], Ph. [phone] Attender: Star HOFFMAN - [facility] 08/08/2020 12:00:00 AM EDT [place] ([facility]) Star Ramachandran MD: 77756 [address], [address], [place] [address], Ph. [phone] Attender: Star Ramachandran MD [place] - [facility] 08/08/2020 12:00:00 AM EDT [place] ([facility]) Star Ramachandran MD: 16589 [address], [address], [place] [address], Ph. [phone] Attender: Star Ramachandran MD [place] - [facility] 08/08/2020 12:00:00 AM EDT [place] ([facility]) Star Ramachandran MD: 96239 [address], [address], [place] [address], Ph. [phone] Attender: Star Ramachandran MD [place] - [facility] 08/08/2020 12:00:00 AM EDT [place] ([facility]) Star Ramachandran MD: 87296 [address], [address], [place] [address], Ph. [phone] Attender: Star Ramachandran MD [place] - [facility] - [facility] 08/08/2020 12:00:00 AM EDT [place] ([facility]) Star Ramachandran MD: 61387 [address], [address], [place] [address], Ph. [phone] Attender: Star Ramachandran MD [place] - [facility] - [facility] 08/08/2020 12:00:00 AM EDT [place] ([facility]) Star Ramachandran MD: 05634 [address], [address], [place] [address], Ph. [phone] Attender: Star Ramachandran MD [place] - [facility] 08/08/2020 12:00:00 AM EDT [place] ([facility]) Star Ramachandran MD: 33339 [address], [place] [address], Ph. [phone] Attender: Star Ramachandran MD [place] - [facility] 08/08/2020 12:00:00 AM EDT [place] ([facility]) Star Ramachandran MD: 85409 [address], [address], [place] [address], Ph. [phone] Attender: Star Ramachandran MD [place] - [facility] 08/08/2020 12:00:00 AM EDT [place] ([facility]) Unknown [address] [facility] [address] 08/04/2020 12:00:00 AM EDT eCW1 ([facility]) Unknown [id number] [facility] [address] 08/01/2020 12:00:00 AM EDT eCW1 ([facility]) Elvia Mccloud, WICK TENDER: [address], [place] [address], Ph. Attender: Elvia Mccloud [facility] - [facility] 07/18/2020 12:00:00 AM EST ATHE NA ([facility]) Elvia Mccloud, WICK TENDER: [address], [place] [address], Ph. Attender: Elvia Mccloud [facility] - [facility] 07/18/2020 12:00:00 AM EST ATHE NA ([facility]) Elvia Mccloud, WICK TENDER: [address]1973 [address], [place] [address], Ph. Attender: Elvia Mccloud [facility] - [facility] 07/18/2020 12:00:00 AM EST ATHE NA ([facility]) Elvia Mccloud, WICK TENDER: [address]489 [address], [place] [address], Ph. Attender: Elvia Mccloud [facility] - [facility] 07/18/2020 12:00:00 AM EST ATHE NA ([facility]) Elvia Mccloud, WICK TENDER: [address]29 [address], [place] [address], Ph. Attender: Elvia Mccloud [facility] - [facility] 07/18/2020 12:00:00 AM EST ATHE NA ([facility]) Elvia Mccloud, WICK TENDER: [address], [facility] [place] [address], Ph. Attender: Elvia Mccloud [facility] - [facility] 07/18/2020 12:00:00 AM EST ATHE NA ([facility]) Elvia Mccloud, WICK TENDER: [address]21 [address], [place] [address], Ph. Attender: Elvia Mccloud [facility] - [facility] 07/18/2020 12:00:00 AM EST ATHE NA ([facility]) Elvia Mccloud, WICK TENDER: [address], [place] [address], Ph. Attender: Elvia Mccloud [facility] - [facility] 07/18/2020 12:00:00 AM EST ATHE NA ([facility]) Elvia Mccloud, WICK TENDER: [address]75 [address], [place] [address], Ph. Attender: Elvia Mccloud [facility] - [facility] 07/18/2020 12:00:00 AM EST ATHE NA ([facility]) Elvia Mccloud, WICK TENDER: [address]339 [address], [place] [address], Ph. Attender: Elvia Mccloud [facility] - [facility] 07/18/2020 12:00:00 AM EST ATHE NA ([facility]) Elvia Mccloud, WICK TENDER: [address]80 [address], [place] [address], Ph. Attender: Elvia Mccloud [facility] - [facility] 07/18/2020 12:00:00 AM EST ATHE NA ([facility]) Elvia Mccloud, WICK TENDER: [address]173 [address], [place] [address], Ph. Attender: Elvia Mccloud [facility] - [facility] 07/18/2020 12:00:00 AM EST ATHE NA ([facility]) Elvia Mccloud, WICK TENDER: 38645 [address], [place] [address], Ph. Attender: Elvia Mccloud [facility] - [facility] 07/18/2020 12:00:00 AM EST ATHE NA ([facility]) Elvia Mccloud, WICK TENDER: [address]175 [address], [place] [address], Ph. Attender: Elvia Mccloud [facility] - [facility] 07/18/2020 12:00:00 AM EST ATHE NA ([facility]) Elvia Mccloud, WICK TENDER: [address]01 [address], [address], [place] [address], Ph. Attender: Elvia Mccloud [facility] - [facility] 07/18/2020 12:00:00 AM EST ATHE NA ([facility]) Elvia Mccloud, WICK TENDER: [address]131 [address], [address], [place] [address], Ph. Attender: Elvia Mccloud [facility] - [facility] 07/18/2020 12:00:00 AM EST ATHE NA ([facility]) Elvia Mccloud, WICK TENDER: [address]102 [address], [place] [address], Ph. Attender: Elvia Mccloud [facility] - [facility] 07/18/2020 12:00:00 AM EST ATHE NA ([facility]) Elvia Mccloud, WICK TENDER: [address]49 [address], [place] [address], Ph. Attender: Elvia Mccloud [facility] - [facility] 07/18/2020 12:00:00 AM EST ATHE NA ([facility]) Star Ramachandran MD: 87982 [address], [place] [address], Ph. Attender: Star Ramachandran MD [place] - [facility] 06/29/2020 12:00:00 AM EST [place] ([facility]) Star Ramachandran MD: 37631 [address], [place] [address], Ph. Attender: Star Ramachandran MD [place] - [facility] 06/29/2020 12:00:00 AM EST [place] ([facility]) Star Ramachandran MD: 59075 [address], [place] [address], Ph. Attender: Star Ramachandran MD [place] - [facility] 06/29/2020 12:00:00 AM EST [place] ([facility]) Star Ramachandran MD: 73363 [address], [address], [place] [address], Ph. Attender: Star Ramachandran MD [place] - [facility] 06/29/2020 12:00:00 AM EST [place] ([facility]) Star Ramachandran MD: 10776 [address], [place] [address], Ph. Attender: Star HOFFMAN - [facility] 06/29/2020 12:00:00 AM EST [place] ([facility]) Star Ramachandran MD: 28507 [address], [place] [address], Ph. Attender: Star HOFFMAN - [facility] 06/29/2020 12:00:00 AM EST [place] ([facility]) Star Ramachandran MD: 78044 [address], [address], [place] [address], Ph. Attender: Star Ramachandran MD [place] - [facility] 06/29/2020 12:00:00 AM EST [place] ([facility]) Star Ramachandran MD: 06039 [address], [place] [address], Ph. Attender: Star Ramachandran MD [place] - [facility] 06/29/2020 12:00:00 AM EST [place] ([facility]) Star Ramachandran MD: 70345 [address], [place] [address], Ph. Attender: Star Ramachandran MD [place] - [facility] 06/29/2020 12:00:00 AM EST [place] ([facility]) Star Ramachandran MD: 00570 [address], [address], [place] [address], Ph. Attender: Star HOFFMAN - [facility] 06/29/2020 12:00:00 AM EST [place] ([facility]) Star Ramachandran MD: 55952 [address], [place] [address], Ph. Attender: Star HOFFMAN - [facility] 06/29/2020 12:00:00 AM EST [place] ([facility]) Star Ramachandran MD: 66358 [address], [place] [address], Ph. Attender: Star HOFFMAN - [facility] 06/29/2020 12:00:00 AM EST [place] ([facility]) Star Ramachandran MD: 32590 [address], [address], [place] [address], Ph. Attender: Star HOFFMAN - [facility] 06/29/2020 12:00:00 AM EST [place] ([facility]) Star Ramachandran MD: 21881 [address], [place] [address], Ph. Attender: Star Ramachandran MD [place] - [facility] 06/29/2020 12:00:00 AM EST [place] ([facility]) Star Ramachandran MD: 33114 [address], [place] [address], Ph. Attender: Star Ramachandran MD [place] - [facility] 06/29/2020 12:00:00 AM EST [place] ([facility]) Star Ramachandran MD: 25825 [address], [address], [place] [address], Ph. Attender: Star Ramachandran MD [place] - [facility] 06/29/2020 12:00:00 AM EST [place] ([facility]) Star Ramachandran MD: 50348 [address], [place] [address], Ph. Attender: Star Ramachandran MD [place] - [facility] 06/29/2020 12:00:00 AM EST [place] ([facility]) Star Ramachandran MD: 39941 [address], [place] [address], Ph. Attender: Star Ramachandran MD [place] - [facility] 06/29/2020 12:00:00 AM EST [place] ([facility]) Star Ramachandran MD: 24006 [address], [place] [address], Ph. Attender: Star Ramachandran MD [place] - [facility] 06/29/2020 12:00:00 AM EST [place] ([facility]) Star Ramachandran MD: 72338 [address], [place] [address], Ph. [phone] Attender: Star HOFFMAN - [facility] 06/24/2020 12:00:00 AM EST [place] ([facility]) Star Ramachandran MD: 16222 [address], [address], [place] [address], Ph. [phone] Attender: Star Ramachandran MD [place] - [facility] 06/24/2020 12:00:00 AM EST [place] ([facility]) Star Ramachandran MD: 24459 [address], [address], [place] [address], Ph. [phone] Attender: Star Ramachandran MD [place] - [facility] 06/24/2020 12:00:00 AM EST [place] ([facility]) Star Ramachandran MD: 83644 [address], [address], [place] [address], Ph. [phone] Attender: Star Ramachandran MD [place] - [facility] 06/24/2020 12:00:00 AM EST [place] ([facility]) Star Ramachandran MD: 29009 [address], [address], [place] [address], Ph. [phone] Attender: Star Ramachandran MD [place] - [facility] 06/24/2020 12:00:00 AM EST [place] ([facility]) Star Ramachandran MD: 87526 [address], [address], [place] [address], Ph. [phone] Attender: Star Ramachandran MD [place] - [facility] 06/24/2020 12:00:00 AM EST [place] ([facility]) Star Ramachandran MD: 24354 [address], [address], [place] [address], Ph. [phone] Attender: Star Ramachandran MD [place] - [facility] 06/24/2020 12:00:00 AM EST [place] ([facility]) Star Ramachandran MD: 08305 [address], [address], [place] [address], Ph. [phone] Attender: Star Ramachandran MD [place] - [facility] 06/24/2020 12:00:00 AM EST [place] ([facility]) Star Ramachandran MD: 81214 [address], [address], [place] [address], Ph. [phone] Attender: Star Ramachandran MD [place] - [facility] 06/24/2020 12:00:00 AM EST [place] ([facility]) Star Ramachandran MD: 83055 [address], [address], [place] [address], Ph. [phone] Attender: Star Ramachandran MD [place] - [facility] 06/24/2020 12:00:00 AM EST [place] ([facility]) Star Ramachandran MD: 80166 [address], [address], [place] [address], Ph. [phone] Attender: Star Ramachandran MD [place] - [facility] 06/24/2020 12:00:00 AM EST [place] ([facility]) Star Ramachandran MD: 04764 [address], [address], [place] [address], Ph. [phone] Attender: Star Ramachandran MD [place] - [facility] 06/24/2020 12:00:00 AM EST [place] ([facility]) Star Ramachandran MD: 08619 [address], [address], [place] [address], Ph. [phone] Attender: Star Ramachandran MD [place] - [facility] 06/24/2020 12:00:00 AM EST [place] ([facility]) Star Ramachandran MD: 63464 [address], [address], [place] [address], Ph. [phone] Attender: Star HOFFMAN - [facility] 06/24/2020 12:00:00 AM EST [place] ([facility]) Star Ramachandran MD: 32179 [address], [place] [address], Ph. [phone] Attender: Star Ramachandran MD [place] - [facility] 06/24/2020 12:00:00 AM EST [place] ([facility]) Star Ramachandran MD: 39820 [address], [place] [address], Ph. [phone] Attender: Star Ramachandran MD [place] - [facility] 06/24/2020 12:00:00 AM EST [place] ([facility]) Star Ramachandran MD: [address], [place] [address], Ph. [phone] Attender: Star Ramachandran MD [place] - [facility] 06/24/2020 12:00:00 AM EST [place] ([facility]) Star Ramachandran MD: [address], [place] [address], Ph. [phone] Attender: Star Ramachandran MD [place] - [facility] 06/24/2020 12:00:00 AM EST [place] ([facility]) Star Ramachandran MD: [address], [place] [address], Ph. [phone] Attender: Star Ramachandran MD [place] - [facility] 06/24/2020 12:00:00 AM EST [place] ([facility]) Star Ramachandran MD: [address], [place] [address], Ph. [phone] Attender: Star HOFFMAN - [facility] 06/24/2020 12:00:00 AM EST [place] ([facility]) Unknown [address] [facility], [facility] [address] 06/23/2020 12:00:00 AM EST eCW1 ([facility]) Elvia Mccloud, WICK TENDER: [address], [place] [address], Ph. Attender: Elvia Mccloud [facility] - [facility] 06/21/2020 12:00:00 AM EST [place]HE NA ([facility]) Elvia Mccloud, WICK TENDER: [address], [place] [address], Ph. Attender: Elvia Mccloud [facility] 06/21/2020 12:00:00 AM EST ATHE NA ([facility]) Elvia Mccloud, WICK TENDER: [address], [place] [address], Ph. Attender: Elvia Mccloud [facility] 06/21/2020 12:00:00 AM EST [place]HE [place] ([facility]) Elvia Mccloud, WICK TENDER: [address], [place] [address], Ph. Attender: Elvia Rogers [facility] - [facility] 06/21/2020 12:00:00 AM EST ATHE NA ([facility]) Elvia Mccloud, WICK TENDER: [address], [place] [address], Ph. Attender: Elvia Mccloud [facility] - [facility] 06/21/2020 12:00:00 AM EST ATHE NA ([facility]) Elvia Mccloud, WICK TENDER: [address], [place] [address], Ph. Attender: Elvia Mccloud [facility] - [facility] 06/21/2020 12:00:00 AM EST ATHE NA ([facility]) Elvia Mccloud, WICK TENDER: [address], [place] [address], Ph. Attender: Elvia Mccloud [facility] - [facility] 06/21/2020 12:00:00 AM EST ATHE NA ([facility]) Elvia Mccloud, WICK TENDER: [address], [place] [address], Ph. Attender: Elvia Mccloud [facility] - [facility] 06/21/2020 12:00:00 AM EST ATHE NA ([facility]) Elvia Mccloud, WICK TENDER: [address], [place] [address], Ph. Attender: Elvia Mccloud [facility] - [facility] 06/21/2020 12:00:00 AM EST ATHE NA ([facility]) Elvia Mccloud, WICK TENDER: [address], [place] [address], Ph. Attender: Elvia Mccloud [facility] - [facility] 06/21/2020 12:00:00 AM EST ATHE NA ([facility]) Elvia Mccloud, WICK TENDER: [address], [place] [address], Ph. Attender: Elvia Mccloud [facility] - [facility] 06/21/2020 12:00:00 AM EST ATHE NA ([facility]) Elvia Mccloud, WICK TENDER: [address], [place] [address], Ph. Attender: Elvia Mccloud [facility] - [facility] 06/21/2020 12:00:00 AM EST ATHE NA ([facility]) Elvia Mccloud, WICK TENDER: [address], [place] [address], Ph. Attender: Elvia Mccloud [facility] - [facility] 06/21/2020 12:00:00 AM EST ATHE NA ([facility]) Elvia Mccloud, WICK TENDER: [address], [place] [address], Ph. Attender: Elvia Mccloud [facility] - [facility] 06/21/2020 12:00:00 AM EST ATHE NA ([facility]) Elvia cMcloud, WICK TENDER: [address], [place] [address], Ph. Attender: Elvia Mccloud [facility] - [facility] 06/21/2020 12:00:00 AM EST ATHE NA ([facility]) Elvia Mccloud, WICK TENDER: [address], [place] [address], Ph. Attender: Elvia Mccloud [facility] - [facility] 06/21/2020 12:00:00 AM EST ATHE NA ([facility]) Elvia Mccloud, WICK TENDER: [address], [place] [address], Ph. Attender: Elvia Mccloud [facility] - [facility] 06/21/2020 12:00:00 AM EST ATHE NA ([facility]) Elvia Mccloud, WICK TENDER: [address], [place] [address], Ph. Attender: Elvia Mccloud [facility] - [facility] 06/21/2020 12:00:00 AM EST ATHE NA ([facility]) Elvia Mccloud, WICK TENDER: [address], [place] [address], Ph. Attender: Elvia Mccloud [facility] - [facility] 06/21/2020 12:00:00 AM EST ATHE NA ([facility]) Elvia Mccloud, WICK TENDER: [address], [place] [address], Ph. Attender: Elvia Mccloud [facility] - [facility] 06/21/2020 12:00:00 AM EST ATHE NA ([facility]) Elvia Mccloud, WICK TENDER: [address], [place] [address], Ph. Attender: Elvia Mccloud [facility] - [facility] 06/21/2020 12:00:00 AM EST ATHE NA ([facility]) Unknown [address] [facility] [address] 06/17/2020 12:00:00 AM EST eCW1 ([facility]) Unknown [address] [facility] [address] 06/17/2020 12:00:00 AM EST eCW1 ([facility]) Unknown [address] [facility] [address] 06/17/2020 12:00:00 AM EST eCW1 ([facility]) Outpatient [address] [facility] [address] 06/17/2020 12:00:00 AM EST eCW1 ([facility]) Star Ramachandran MD: [address], [address] [place] [address], Ph. Attender: Star Ramachandran MD [place] - [facility] 06/08/2020 12:00:00 AM EST [place] ([facility]) Star Ramachandran MD: [address], [place] [address], Ph. Attender: Star Ramachandran MD [place] - [facility] 06/08/2020 12:00:00 AM EST [place] ([facility]) Star Ramachandran MD: [address]64 [address], [place] [address], Ph. Attender: Star Ramachandran MD [place] - [facility] 06/08/2020 12:00:00 AM EST [place] ([facility]) Star Ramachandran MD: [address], [place] [address], Ph. Attender: Star Ramachandran MD [place] - [facility] 06/08/2020 12:00:00 AM EST [place] ([facility]) Star Ramachandran MD: [address], [place] [address], Ph. Attender: Star Ramachandran MD [place] - [facility] 06/08/2020 12:00:00 AM EST [place] ([facility]) Star Ramachandran MD: [address], [address], [place] [address], Ph. Attender: Star Ramachandran MD [place] - [facility] 06/08/2020 12:00:00 AM EST [place] ([facility]) Star Ramachandran MD: [address]46 [address], [address], [place] [address], Ph. Attender: Star Ramachandran MD [place] - [facility] 06/08/2020 12:00:00 AM EST [place] ([facility]) Star Ramachandran MD: [address]78 [address], [place] [address], Ph. Attender: Star Ramachandran MD [place] - [facility] 06/08/2020 12:00:00 AM EST [place] ([facility]) Star Ramachandran MD: [address], [address], [place] [address], Ph. Attender: Star Ramachandran MD [place] - [facility] 06/08/2020 12:00:00 AM EST [place] ([facility]) Star Ramachandran MD: [address]29 [address], [address], [place] [address], Ph. Attender: Star Ramachandran MD [place] - [facility] 06/08/2020 12:00:00 AM EST [place] ([facility]) Star Ramachandran MD: [address]754 [address], [address], [place] [address], Ph. Attender: Star HOFFMAN - [facility] 06/08/2020 12:00:00 AM EST [place] ([facility]) Star Ramachandran MD: [address]29 [address], [address], [place] [address], Ph. Attender: Star Ramachandran MD [place] - [facility] 06/08/2020 12:00:00 AM EST [place] ([facility]) Star Ramachandran MD: [address]02 [address], [place] [address], Ph. Attender: Star Ramachandran MD [place] - [facility] 06/08/2020 12:00:00 AM EST [place] ([facility]) Star Ramachandran MD: [address]17 [address], [place] [address], Ph. Attender: Star Ramachandran MD [place] - [facility] 06/08/2020 12:00:00 AM EST [place] ([facility]) Star Ramachandran MD: 53646 [address], [place] [address], Ph. Attender: Star Ramachandran MD [place] - [facility] 06/08/2020 12:00:00 AM EST [place] ([facility]) Star Ramachandran MD: [address]45 [address], [place] [address], Ph. Attender: Star Ramachandran MD [place] - [facility] 06/08/2020 12:00:00 AM EST [place] ([facility]) Star Ramachandran MD: [address]370 [address], [place] [address], Ph. Attender: Star Ramachandran MD [place] - [facility] 06/08/2020 12:00:00 AM EST [place] ([facility]) Star Ramachandran MD: [address]383 [address], [address], [place] [address], Ph. Attender: Star Ramachandran MD [place] - [facility] 06/08/2020 12:00:00 AM EST [place] ([facility]) Star Ramachandran MD: [address]5623 [address], [place] [address], Ph. Attender: Star Ramachandran MD [place] - [facility] 06/08/2020 12:00:00 AM EST [place] ([facility]) Star Ramachandran MD: [address]33 [address], [place] [address], Ph. Attender: Star Ramachandran MD [place] - [facility] 06/08/2020 12:00:00 AM EST [place] ([facility]) Star Ramachandran MD: 58116 [address], [place] [address], Ph. Attender: Star Ramachandran MD [place] - [facility] 06/08/2020 12:00:00 AM EST [place] ([facility]) Star Ramachandran MD: [address]6438 [address], [place] [address], Ph. Attender: Star Ramachandran MD [place] - [facility] 06/08/2020 12:00:00 AM EST [place] ([facility]) Star Ramachandran MD: [address]15 [address], [place] [address], Ph. [phone] Attender: Star Ramachandran MD [place] - [facility] 06/03/2020 12:00:00 AM EST [place] ([facility]) Star Ramachandran MD: [address]32 [address], [address], [place] [address], Ph. [phone] Attender: Star Ramachandran MD [place] - [facility] 06/03/2020 12:00:00 AM EST [place] ([facility]) Star Ramachandran MD: [address]9971 [address], [address], [place] [address], Ph. [phone] Attender: Star Ramachandran MD [place] - [facility] 06/03/2020 12:00:00 AM EST [place] ([facility]) Star Ramachandran MD: [address]153 [address], [address], [place] [address], Ph. [phone] Attender: Star Ramachandran MD [place] - [facility] 06/03/2020 12:00:00 AM EST [place] ([facility]) Star Ramachandran MD: [address]320 [address], [address], [place] [address], Ph. [phone] Attender: Star Ramachandran MD [place] - [facility] 06/03/2020 12:00:00 AM EST [place] ([facility]) Star Ramachandran MD: [address]010 [address], [address], [place] [address], Ph. [phone] Attender: Star Ramachandran MD [place] - [facility] 06/03/2020 12:00:00 AM EST [place] ([facility]) Star Ramachandran MD: [address]778 [address], [address], [place] [address], Ph. [phone] Attender: Star Ramachandran MD [place] - [facility] 06/03/2020 12:00:00 AM EST [place] ([facility]) Star Ramachandran MD: [address]18 [address], [address], [place] [address], Ph. [phone] Attender: Star Ramachandran MD [place] - [facility] 06/03/2020 12:00:00 AM EST [place] ([facility]) Star Ramachandran MD: [address]9450 [address], [address], [place] [address], Ph. [phone] Attender: Star Ramachandran MD [place] - [facility] 06/03/2020 12:00:00 AM EST [place] ([facility]) Star Ramachandran MD: [address]131 [address], [address], [place] [address], Ph. [phone] Attender: Star HOFFMAN - [facility] 06/03/2020 12:00:00 AM EST [place] ([facility]) Star Ramachandran MD: [address]33 [address], [address], [place] [address], Ph. [phone] Attender: Star Ramachandran MD [place] - [facility] 06/03/2020 12:00:00 AM EST [place] ([facility]) Star Ramachandran MD: [address]78 [address], [address], [place] [address], Ph. [phone] Attender: Star Ramachandran MD [place] - [facility] 06/03/2020 12:00:00 AM EST [place] ([facility]) Star Ramachandran MD: [address]12 [address], [address], [place] [address], Ph. [phone] Attender: Star Ramachandran MD [place] - [facility] 06/03/2020 12:00:00 AM EST [place] ([facility]) Star Ramachandran MD: [address]44 [address], [address], [place] [address], Ph. [phone] Attender: Star HOFFMAN - [facility] 06/03/2020 12:00:00 AM EST [place] ([facility]) Star Ramachandran MD: [address]208 [address], [place] [address], Ph. [phone] Attender: Star Ramachandran MD [place] - [facility] 06/03/2020 12:00:00 AM EST [place] ([facility]) Star Ramachandran MD: [address]21 [address], [place] [address], Ph. [phone] Attender: Star Ramachandran MD [place] - [facility] 06/03/2020 12:00:00 AM EST [place] ([facility]) Star Ramachandran MD: [address]89 [address], [place] [address], Ph. [phone] Attender: Star Ramachandran MD [place] - [facility] 06/03/2020 12:00:00 AM EST [place] ([facility]) Star Ramachandran MD: [address]01 [address], [place] [address], Ph. [phone] Attender: Star Ramachandran MD [place] - [facility] 06/03/2020 12:00:00 AM EST [place] ([facility]) Star Ramachandran MD: [address]70 [address], [place] [address], Ph. [phone] Attender: Star Ramachandran MD [place] - [facility] 06/03/2020 12:00:00 AM EST [place] ([facility]) Star Ramachandran MD: 84161 [address], [place] [address], Ph. [phone] Attender: Star Ramachandran MD [place] - [facility] 06/03/2020 12:00:00 AM EST [place] ([facility]) Star Ramachandran MD: 21072 [address], [address], [place] [address], Ph. [phone] Attender: Star Ramachandran MD [place] - [facility] 06/03/2020 12:00:00 AM EST [place] ([facility]) Star Ramachandran MD: 87689 [address], [place] [address], Ph. [phone] Attender: Star Ramachandran MD [place] - [facility] 06/03/2020 12:00:00 AM EST [place] ([facility]) Star Ramachandran MD: [address]01 [address], [place] [address], Ph. [phone] Attender: Star Ramachandran MD [place] - [facility] 06/03/2020 12:00:00 AM EST [place] ([facility]) Elvia Mccloud, WICK TENDER: [address], [place] [address], Ph. Attender: Elvia Mccloud [facility] - [facility] 05/24/2020 12:00:00 AM EST ATHE NA ([facility]) Elvia Mccloud, WICK TENDER: [address], [place] [address], Ph. Attender: Elvia Mccloud [facility] - [facility] 05/24/2020 12:00:00 AM EST ATHE NA ([facility]) Elvia Mccloud, WICK TENDER: [address], [place] [address], Ph. Attender: Elvia Mccloud [facility] - [facility] 05/24/2020 12:00:00 AM EST ATHE NA ([facility]) Elvia Mccloud, WICK TENDER: [address], [place] [address], Ph. Attender: Elvia Mccloud [facility] 05/24/2020 12:00:00 AM EST ATHE NA ([facility]) Elvia Mccloud, WICK TENDER: [address]82 [address], [place] [address], Ph. Attender: Elvia Mccloud [facility] 05/24/2020 12:00:00 AM EST ATHE NA ([facility]) Elvia Mccloud, WICK TENDER: [address], [facility] [place] [address], Ph. Attender: Elvia Mccloud [facility] 05/24/2020 12:00:00 AM EST ATHE NA ([facility]) Elvia Mccloud, WICK TENDER: [address]166 [address], [place] [address], Ph. Attender: Elvia Mccloud [facility] 05/24/2020 12:00:00 AM EST ATHE NA ([facility]) Elvia Mccloud, WICK TENDER: [address], [place] [address], Ph. Attender: Elvia Mccloud [facility] 05/24/2020 12:00:00 AM EST ATHE NA ([facility]) Elvia Mccloud, WICK TENDER: [address]604 [address], [place] [address], Ph. Attender: Elvia Mccloud [facility] - [facility] 05/24/2020 12:00:00 AM EST ATHE NA ([facility]) Elvia Mccloud, WICK TENDER: [address]27 [address], [place] [address], Ph. Attender: Elvia Mccloud [facility] - [facility] 05/24/2020 12:00:00 AM EST ATHE NA ([facility]) Elvia Mccloud, WICK TENDER: [address], [place] [address], Ph. Attender: Elvia Mccloud [facility] - [facility] 05/24/2020 12:00:00 AM EST ATHE NA ([facility]) Elvia Mccloud, WICK TENDER: [address], [place] [address], Ph. Attender: Elvia Mccloud [facility] - [facility] 05/24/2020 12:00:00 AM EST ATHE NA ([facility]) Elvia Mccloud, WICK TENDER: [address]36 [address], [place] [address], Ph. Attender: Elvia Mccloud [facility] - [facility] 05/24/2020 12:00:00 AM EST ATHE NA ([facility]) Elvia Mccloud, WICK TENDER: [address], [place] [address], Ph. Attender: Elvia Mccloud [facility] - [facility] 05/24/2020 12:00:00 AM EST ATHE NA ([facility]) Elvia Mccloud, WICK TENDER: [address]194 [address], [place] [address], Ph. Attender: Elvia Mccloud [facility] - [facility] 05/24/2020 12:00:00 AM EST ATHE NA ([facility]) Elvia Mccloud, WICK TENDER: [address], [place] [address], Ph. Attender: Elvia Mccloud [facility] 05/24/2020 12:00:00 AM EST ATHE NA ([facility]) Elvia Mccloud, WICK TENDER: [address], [place] [address], Ph. Attender: Elvia Mccloud [facility] 05/24/2020 12:00:00 AM EST ATHE NA ([facility]) Elvia Mccloud, WICK TENDER: [address], [place] [address], Ph. Attender: Elvia Mccloud [facility] 05/24/2020 12:00:00 AM EST ATHE NA ([facility]) Elvia Mccloud, WICK TENDER: [address], [address], [place] [address], Ph. Attender: Elvia Mccloud [facility] 05/24/2020 12:00:00 AM EST ATHE NA ([facility]) Elvia Mccloud, WICK TENDER: [address], [place] [address], Ph. Attender: Elvia Mccloud [facility] 05/24/2020 12:00:00 AM EST ATHE NA ([facility]) Elvia Mccloud, WICK TENDER: [address], [place] [address], Ph. Attender: Elvia Taylorthaisjoseph [facility] - [facility] 05/24/2020 12:00:00 AM EST ATHE NA ([facility]) Elvia Mccloud, WICK TENDER: [address], [place] [address], Ph. Attender: Elvia Mccloud [facility] 05/24/2020 12:00:00 AM EST ATHE NA ([facility]) Elvia Marcojazmine Ashleyjoseph, WICK TENDER: [address], [place] [address], Ph. Attender: Elvia Mccloud [facility] 05/24/2020 12:00:00 AM EST ATHE NA ([facility]) Eliva Mccloud, WICK TENDER: [address], [place] [address], Ph. Attender: Elvia Rogers [facility] 05/24/2020 12:00:00 AM EST ATHE NA ([facility]) Outpatient [address] [facility] [place] [address] 05/20/2020 12:00:00 AM EST eCW1 ([facility]) Elvia Mccloud, WICK TENDER: [address], [place] [address], Ph. Attender: Elvia Mccloud [facility] 04/26/2020 12:00:00 AM EST ATHE NA ([facility]) Elvia Mccloud, WICK TENDER: [address], [address], [place] [address], Ph. Attender: Elvia Mccloud [facility] 04/26/2020 12:00:00 AM EST ATHE NA ([facility]) Elvia Mccloud, WICK TENDER: [address], [address], [place] [address], Ph. Attender: Elvia Mccloud [facility] 04/26/2020 12:00:00 AM EST ATHE NA ([facility]) Elvia Mccloud, WICK TENDER: [address], [place] [address], Ph. Attender: Elvia Ramirezjoseph [facility] 04/26/2020 12:00:00 AM EST ATHE NA ([facility]) Elvia Mccloud, WICK TENDER: [address], [place] [address], Ph. Attender: Elvia Mccloud [facility] 04/26/2020 12:00:00 AM EST ATHE NA ([facility]) Elvia Mccloud, WICK TENDER: [address], [place] [address], Ph. Attender: Elvia Mccloud [facility] 04/26/2020 12:00:00 AM EST ATHE NA ([facility]) Elvia Mccloud, WICK TENDER: [address], [place] [address], Ph. Attender: Elvia Mccloud [facility] 04/26/2020 12:00:00 AM EST ATHE NA ([facility]) Elvia Mccloud, WICK TENDER: [address], [place] [address], Ph. Attender: Elvia Mccloud [facility] 04/26/2020 12:00:00 AM EST ATHE NA ([facility]) Elvia Mccloud, WICK TENDER: [address], [address], [place] [address], Ph. Attender: Elvia Mccloud [facility] 04/26/2020 12:00:00 AM EST ATHE NA ([facility]) Elvia Mccloud, WICK TENDER: [address], [place] [address], Ph. Attender: Elvia Mccloud [facility] 04/26/2020 12:00:00 AM EST ATHE NA ([facility]) Elvia Mccloud, WICK TENDER: [address], [place] [address], Ph. Attender: Elvia Mccloud [facility] 04/26/2020 12:00:00 AM EST ATHE NA ([facility]) Elvia Mccloud, WICK TENDER: [address], [address], [place] [address], Ph. Attender: Elvia Mccloud [facility] 04/26/2020 12:00:00 AM EST ATHE NA ([facility]) Elvia Mccloud, WICK TENDER: [address], [address], [place] [address], Ph. Attender: Elvia Mccloud [facility] 04/26/2020 12:00:00 AM EST ATHE NA ([facility]) Elvia Mccloud, WICK TENDER: [address], [place] [address], Ph. Attender: Elvia Mccloud [facility] 04/26/2020 12:00:00 AM EST ATHE NA ([facility]) Elvai Mccloud, WICK TENDER: [address], [place] [address], Ph. Attender: Elvia Mccloud [facility] 04/26/2020 12:00:00 AM EST ATHE NA ([facility]) Elvia Mccloud, WICK TENDER: [address], [place] [address], Ph. Attender: Elvia Mccloud [facility] 04/26/2020 12:00:00 AM EST ATHE NA ([facility]) Elvia Mccloud, WICK TENDER: [address], [place] [address], Ph. Attender: Elvia Mccloud [facility] 04/26/2020 12:00:00 AM EST ATHE NA ([facility]) Elvia Mccloud, WICK TENDER: [address], [place] [address], Ph. Attender: Elvia Mccloud [facility] 04/26/2020 12:00:00 AM EST ATHE NA ([facility]) Elvia Mccloud, WICK TENDER: [address], [address], [place] [address], Ph. Attender: Elvia Mccloud [facility] 04/26/2020 12:00:00 AM EST ATHE NA ([facility]) Elvia Mccloud, WICK TENDER: [address], [address], [place] [address], Ph. Attender: Elvia Mccloud [facility] 04/26/2020 12:00:00 AM EST ATHE NA ([facility]) Elvia Mccloud, WICK TENDER: [address], [place] [address], Ph. Attender: Elvia Mccloud [facility] 04/26/2020 12:00:00 AM EST ATHE NA ([facility]) Elvia Mccloud, WICK TENDER: [address], [address], [place] [address], Ph. Attender: Elvia Mccloud [facility] 04/26/2020 12:00:00 AM EST ATHE NA ([facility]) Elvia Mccloud, WICK TENDER: [address], [address], [place] [address], Ph. Attender: Elvia Mccloud [facility] 04/26/2020 12:00:00 AM EST ATHE NA ([facility]) Elvia Mccloud, WICK TENDER: [address], [place] [address], Ph. Attender: Elviasamantha Ramirezjoseph [facility] 04/26/2020 12:00:00 AM EST ATHE NA ([facility]) Elvia Mccloud, WICK TENDER: [address], [place] [address], Ph. Attender: Elvia Mccloud [facility] 04/26/2020 12:00:00 AM EST ATHE NA ([facility]) Unknown [address] [facility] [id number] 04/04/2020 12:00:00 AM EST eCW1 ([facility]) Unknown [address] [facility] [id number] 04/01/2020 12:00:00 AM EST eCW1 [facility] Outpatient [address] [facility] [id number] 03/28/2020 12:00:00 AM EST eCW1 ([facility]) Unknown [address] [facility] [id number] 03/28/2020 12:00:00 AM EST eCW1 ([facility]) Outpatient Referrer: KRISTYN GEORGE MD 03/24/2020 12:00:[address] [facility] Outpatient Attender: KRISTYN GEORGE MDReferrer: Saima LacyCatracho [id number] 02/23/2020 12:00:00 AM EDT - 02/23/2020 11:46:57 AM ED T Gastro- esophageal reflux disease without esophagitis [facility] Gastro-esophageal reflux disease without esophagitis Elvia Ramirezjoseph, WICK TENDER: [address]65 [address], [place] [address], Ph. Attender: Elvia Mccloud [facility] 02/23/2020 12:00:00 AM EDT ATHSamantha NA ([facility]) Elvia Guardadobobsonia Rogers, WICK TENDER: [address], [place] [address], Ph. Attender: Elvia Mccloud [facility] 02/23/2020 12:00:00 AM EDT ATHE NA ([facility]) Elvia Mccloud, WICK TENDER: [address], [place] [address], Ph. Attender: Elvia Mccloud [facility] 02/23/2020 12:00:00 AM EDT ATHE NA ([facility]) Elvia Mccloud, WICK TENDER: [address], [place] [address], Ph. Attender: Elvia Mccloud [facility] 02/23/2020 12:00:00 AM EDT ATHE NA ([facility]) Elvia Mccloud, WICK TENDER: [address], [place] [address], Ph. Attender: Elvia Mccloud [facility] 02/23/2020 12:00:00 AM EDT ATHE NA ([facility]) Elvia Mccloud, WICK TENDER: [address], [place] [address], Ph. Attender: Elvia Mccloud [facility] 02/23/2020 12:00:00 AM EDT ATHE NA ([facility]) Elvia Mccloud, WICK TENDER: [address], [place] [address], Ph. Attender: Elvia Mccloud [facility] 02/23/2020 12:00:00 AM EDT ATHE NA ([facility]) Elvia Mccloud, WICK TENDER: [address], [place] [address], Ph. Attender: Elvia Mccloud [facility] 02/23/2020 12:00:00 AM EDT ATHE NA ([facility]) Elvia Mccloud, WICK TENDER: [address]67 [address], [address], [place] [address], Ph. Attender: Elvia Mccloud [facility] 02/23/2020 12:00:00 AM EDT ATHE NA ([facility]) Elvia Mccloud, WICK TENDER: [address], [place] [address], Ph. Attender: Elvia Mccloud [facility] 02/23/2020 12:00:00 AM EDT ATHE NA ([facility]) Elvia Mccloud, WICK TENDER: [address]50 [address], [place] [address], Ph. Attender: Elvia Mccloud [facility] 02/23/2020 12:00:00 AM EDT ATHE NA ([facility]) Elvia Mccloud, WICK TENDER: [address]85 [address], [place] [address], Ph. Attender: Elvia Mccloud [facility] 02/23/2020 12:00:00 AM EDT ATHE NA ([facility]) Elvia Mccloud, WICK TENDER: [address], [place] [address], Ph. Attender: Elvia Mccloud [facility] 02/23/2020 12:00:00 AM EDT ATHE NA ([facility]) Elvia Mccloud, WICK TENDER: [address], [place] [address], Ph. Attender: Elvia Mccloud [facility] 02/23/2020 12:00:00 AM EDT ATHE NA ([facility]) Elvia Mccloud, WICK TENDER: [address]95 [address], [place] [address], Ph. Attender: Elvia Mccloud [facility] 02/23/2020 12:00:00 AM EDT ATHE NA ([facility]) Elvia Mccloud, WICK TENDER: [address], [place] [address], Ph. Attender: Elvia Mccloud [facility] 02/23/2020 12:00:00 AM EDT ATHE NA ([facility]) Elvia Mccloud, WICK TENDER: [address]244 [address], [place] [address], Ph. Attender: Elvia Mccloud [facility] 02/23/2020 12:00:00 AM EDT ATHE NA ([facility]) Elvia Mccloud, WICK TENDER: [address]69 [address], [place] [address], Ph. Attender: Elvia Mccloud [facility] 02/23/2020 12:00:00 AM EDT ATHE NA ([facility]) Elvia Mccloud, WICK TENDER: [address]66 [address], [address], [place] [address], Ph. Attender: Elvia Mccloud [facility] 02/23/2020 12:00:00 AM EDT ATHE NA ([facility]) Elvia Mccloud, WICK TENDER: [address]95 [address], [address], [place] [address], Ph. Attender: Elvia Mccloud [facility] 02/23/2020 12:00:00 AM EDT ATHSamantha NA ([facility]) Elvia Mccloud, WICK TENDER: [address]19 [address], [place] [address], Ph. Attender: Elvia Mccloud [facility] 02/23/2020 12:00:00 AM EDT ATHE NA ([facility]) Elvia Mccloud, WICK TENDER: [address]18 [address], [address], [place] [address], Ph. Attender: Elvia Mccloud [facility] 02/23/2020 12:00:00 AM EDT ATHE NA ([facility]) Elvia Mccloud, WICK TENDER: [address]63 [address], [address], [place] [address], Ph. Attender: Elvia Mccloud [facility] 02/23/2020 12:00:00 AM EDT ATHSamantha NA ([facility]) Elvia Mccloud, WICK TENDER: [address]75 [address], [address], [place] [address], Ph. Attender: Elviazena Mccloud [facility] 02/23/2020 12:00:00 AM EDT ATHE NA ([facility]) Unknown [address] [facility] [place] [address] 02/23/2020 12:00:00 AM EDT eCW1 ([facility]) Elvia Mccloud, WICK TENDER: [address]167 [address], [place] [address], Ph. Attender: Elvia Mccloud [facility] 02/23/2020 12:00:00 AM EDT ATHE NA ([facility]) Elvia Guardadobobsonia Rogers, WICK TENDER: [address]21 [address], [place] [address], Ph. Attender: Elvia Mccloud [facility] 02/23/2020 12:00:00 AM EDT ATHE NA ([facility]) Unknown [address] [facility] [place] [address] 02/22/2020 12:00:00 AM EDT eCW1 ([facility]) Elvia Mccloud, WICK TENDER: [address]47 [address], [place] [address], Ph. Attender: Elvia Mccloud [facility] 01/14/2020 12:00:00 AM EDT ATHE NA ([facility]) Elviasamantha Aguirre Taylorstephanie, WICK TENDER: [address], [place] [address], Ph. Attender: Elvia Mccloud [facility] 01/14/2020 12:00:00 AM EDT ATHE NA ([facility]) Elvia Mccloud, WICK TENDER: [address]29 [address], [place] [address], Ph. Attender: Elvia Mccloud [facility] 01/14/2020 12:00:00 AM EDT ATHE NA ([facility]) Elvia Mccloud, WICK TENDER: [address]31 [address], [place] [address], Ph. Attender: Elvia Mccloud [facility] 01/14/2020 12:00:00 AM EDT ATHE NA ([facility]) Elvia Mccloud, WICK TENDER: [address]457 [address], [place] [address], Ph. Attender: Elvia Mccloud [facility] 01/14/2020 12:00:00 AM EDT ATHE NA ([facility]) Elvia Mccloud, WICK TENDER: [address]94 [address], [address], [place] [address], Ph. Attender: Elvia Mccloud [facility] 01/14/2020 12:00:00 AM EDT ATHE NA ([facility]) Elvia Millssonia Vazquezthaisjoseph, WICK TENDER: 34940 [address], [place] [address], Ph. Attender: Elvia Mccloud [facility] 01/14/2020 12:00:00 AM EDT ATHE NA ([facility]) Elvia Aguirre Taylorstephanie, WICK TENDER: [address]20 [address], [place] [address], Ph. Attender: Elvia Ramirezjoseph [facility] 01/14/2020 12:00:00 AM EDT ATHE NA ([facility]) Elvia Mccloud, WICK TENDER: [address]122 [address], [place] [address], Ph. Attender: Elvia Mccloud [facility] 01/14/2020 12:00:00 AM EDT ATHE NA ([facility]) Elvia Mccloud, WICK TENDER: 55182 [address], [address], [place] [address], Ph. Attender: Elvia Mccloud [facility] 01/14/2020 12:00:00 AM EDT ATHE NA ([facility]) Elvia Mccloud, WICK TENDER: [address]47 [address], [place] [address], Ph. Attender: Elviasamantha Ramirezjoseph [facility] 01/14/2020 12:00:00 AM EDT ATHE NA ([facility]) Elvia Mccloud, WICK TENDER: 54959 [address], [place] [address], Ph. Attender: Elvia Taylorthaisjoseph [facility] 01/14/2020 12:00:00 AM EDT ATHE NA ([facility]) Elvia Mccloud, WICK TENDER: [address]31 [address], [address], [place] [address], Ph. Attender: Elviasamantha Ramirezjoseph [facility] 01/14/2020 12:00:00 AM EDT ATHE NA ([facility]) Elvia Mccloud, WICK TENDER: [address]01 [address], [address], [place] [address], Ph. Attender: Elvia Mccloud [facility] 01/14/2020 12:00:00 AM EDT ATHE NA ([facility]) Elvia Mccloud, WICK TENDER: [address]23 [address], [place] [address], Ph. Attender: Elvia Mccloud [facility] 01/14/2020 12:00:00 AM EDT ATHE NA ([facility]) Elvia Mccloud, WICK TENDER: 31179 [address], [place] [address], Ph. Attender: Elvia Mccloud [facility] 01/14/2020 12:00:00 AM EDT ATHE NA ([facility]) Elvia Mccloud, WICK TENDER: 47672 [address], [place] [address], Ph. Attender: Elvia Mccloud [facility] 01/14/2020 12:00:00 AM EDT ATHE NA ([facility]) Elvia Mccloud, WICK TENDER: [address]99 [address], [place] [address], Ph. Attender: Elvia Mccloud [facility] 01/14/2020 12:00:00 AM EDT ATHE NA ([facility]) Elvia Mccloud, WICK TENDER: 38155 [address], [place] [address], Ph. Attender: Elvia Mccloud [facility] 01/14/2020 12:00:00 AM EDT ATHE NA ([facility]) Elvia Marcofilomenasonia Mccloud, WICK TENDER: [address]78 [address], [place] [address], Ph. Attender: Elvia Mccloud [facility] 01/14/2020 12:00:00 AM EDT ATHE NA ([facility]) Elvia Mccloud, WICK TENDER: 87068 [address], [address] [place] [address], Ph. Attender: Elvia Mccloud [facility] - [facility] 01/14/2020 12:00:00 AM EDT ATHE NA ([facility]) Elvia Mccloud, WICK TENDER: [address], [place] [address], Ph. Attender: Elvia Mccloud [facility] 01/14/2020 12:00:00 AM EDT ATHE NA ([facility]) Elvia Mccloud, WICK TENDER: [address], [place] [address], Ph. Attender: Elvia Mccloud [facility] 01/14/2020 12:00:00 AM EDT ATHE NA ([facility]) Elvia Mccloud, WICK TENDER: [address], [place] [address], Ph. Attender: Elvia Mccloud [facility] 01/14/2020 12:00:00 AM EDT ATHE NA ([facility]) Elvia Mccloud, WICK TENDER: [address], [place] [address], Ph. Attender: Elvia Mccloud [facility] 01/14/2020 12:00:00 AM EDT ATHE NA ([facility]) Elvia Mccloud, WICK TENDER: [address], [place] [address], Ph. Attender: Elvia Mccloud [facility] Office 01/14/2020 12:00:00 AM EDT ATHE NA ([facility]) Elvia Mccloud, WICK TENDER: [address], [place] [address], Ph. Attender: Elvia Mccloud [facility] 01/14/2020 12:00:00 AM EDT ATHE NA ([facility]) Immunizations Vaccine Date Status Description Data Source(s) COVID-19 VACCINE Gerald 10/12/2020 12:00:00 AM EDT completed [facility] Vaccine Series Complete: YESThis Data wa s Submitted to [facility] Via [facility]. influenza, recombinant, quadrIvalent,injectable, prese rvative free 03/28/2020 04:22:00 PM EST completed [facility] influenza, recombinant, quadrIvalent,injectable, prese rvative free 03/28/2020 04:22:00 PM EST completed eCW1 ([facility] influenza, recombinant, quadrIvalent,injectable, prese rvative free 03/28/2020 04:22:00 PM EST completed eCW1 ([facility]) influenza, recombinant, quadrIvalent,injectable, prese rvative free 03/28/2020 04:22:00 PM EST completed eCW1 ([facility]) influenza, recombinant, quadrIvalent,injectable, prese rvative free 03/28/2020 04:22:00 PM EST completed eCW1 ([facility]) influenza, recombinant, quadrIvalent,injectable, prese rvative free 03/28/2020 04:22:00 PM EST completed eCW1 ([facility]) influenza, recombinant, quadrIvalent,injectable, prese rvative free 03/28/2020 04:22:00 PM EST completed eCW1 ([facility]) influenza, recombinant, quadrIvalent,injectable, prese rvative free 03/28/2020 04:22:00 PM EST completed eCW1 ([facility]) influenza, recombinant, quadrIvalent,injectable, prese rvative free 03/28/2020 04:22:00 PM EST completed eCW1 ([facility]) influenza, recombinant, quadrIvalent,injectable, prese rvative free 03/28/2020 04:22:00 PM EST completed eCW1 ([facility]) influenza, recombinant, quadrIvalent,injectable, prese rvative free 03/28/2020 04:22:00 PM EST completed eCW1 ([facility]) influenza, recombinant, quadrIvalent,injectable, prese rvative free 03/28/2020 04:22:00 PM EST completed eCW1 ([facility]) influenza, recombinant, quadrIvalent,injectable, prese rvative free 03/28/2020 04:22:00 PM EST completed eCW1 ([facility]) influenza, recombinant, quadrIvalent,injectable, prese rvative free 03/28/2020 04:22:00 PM EST completed eCW1 ([facility]) influenza, recombinant, quadrIvalent,injectable, prese rvative free 03/28/2020 04:22:00 PM EST completed eCW1 ([facility]) influenza, recombinant, quadrIvalent,injectable, prese rvative free 03/28/2020 04:22:00 PM EST completed eCW1 ([facility]) influenza, recombinant, quadrIvalent,injectable, prese rvative free 03/28/2020 04:22:00 PM EST completed eCW1 ([facility]) influenza, recombinant, quadrIvalent,injectable, prese rvative free 03/28/2020 04:22:00 PM EST completed eCW1 ([facility]) influenza, recombinant, quadrIvalent,injectable, prese rvative free 03/28/2020 04:22:00 PM EST completed eCW1 ([facility]) influenza, recombinant, quadrIvalent,injectable, prese rvative free 03/28/2020 04:22:00 PM EST completed eCW1 ([facility]) influenza, recombinant, quadrIvalent,injectable, prese rvative free 03/28/2020 04:22:00 PM EST completed eCW1 ([facility]) influenza, recombinant, quadrIvalent,injectable, prese rvative free 03/28/2020 04:22:00 PM EST completed eCW1 ([facility]) influenza, recombinant, quadrIvalent,injectable, prese rvative free 03/28/2020 04:22:00 PM EST completed eCW1 ([facility]) Medications Medication Brand Name Start Date Product Form Dose Route Admi nistrative Instructions Pharmacy Instructions Status Indications Reaction Description Data Source(s) gabapentin 800 MG Oral Tablet GABAPENTIN 02/23/2021 12:00:00 AM EDT ta blet 90 TAKE ONE TABLET BY MOUTH THREE TIMES A DAY TAKE ONE TABLET BY MOUTH THREE TIMES A DAY SOLD: 02/24/2021 [facility] Ondansetron 4 MG Disintegrating Oral Tablet ONDANSETRON 02/15/2021 12:00:00 AM EDT tablet,disintegrating 30 DISSOLVE O NE TABLET ON TONGUE THREE TIMES A DAY NEEDED DISSOLVE ONE TABLET ON TONGUE THREE TIMES A DAY NEE DED SOLD: 02/16/2021 [facility] gabapentin 800 MG Oral Tablet GABAPENTIN 01/12/2021 12:00:00 AM EDT ta blet 90 TAKE ONE TABLET BY MOUTH THREE TIMES A DAY TAKE ONE TABLET BY MOUTH THREE TIMES A DAY SOLD: 01/12/2021 [facility] Ondansetron 4 MG Disintegrating Oral Tablet ONDANSETRON 12/01/2020 12:00:00 AM EDT tablet,disintegrating 30 PLACE 1 TA BLET ON TONGUE AND ALLOW TO DISSOLVE THREE TIMES A DAY NEEDED PLACE 1 TABLET ON TONGUE AND ALLOW TO DI SSOLVE THREE TIMES A DAY NEEDED SOLD: 12/02/2020 [facility] Ondansetron 4 MG Disintegrating Oral Tablet Ondansetron 4 MG 11/30/2020 12:00:00 AM EDT 1.0 {tablet_on_the_tongue_and_allow_to_dissolve} active Ondansetron 4 MG eCW1 ([facility]) Ondansetron 4 MG Disintegrating Oral Tablet Ondansetron 4 MG 11/30/2020 12:00:00 AM EDT 1.0 {tablet_on_the_tongue_and_allow_to_dissolve} active eCW1 ([facility]) Ondansetron 4 MG Disintegrating Oral Tablet Ondansetron 4 MG 11/30/2020 12:00:00 AM EDT 1.0 {tablet_on_the_tongue_and_allow_to_dissolve} active Ondansetron 4 MG eCW1 ([facility]) Ondansetron 4 MG Disintegrating Oral Tablet Ondansetron 4 MG 11/30/2020 12:00:00 AM EDT 1.0 {tablet_on_the_tongue_and_allow_to_dissolve} active Ondansetron 4 MG eCW1 ([facility]) Ondansetron 4 MG Disintegrating Oral Tablet Ondansetron 4 MG 11/30/2020 12:00:00 AM EDT 1.0 {tablet_on_the_tongue_and_allow_to_dissolve} active Ondansetron 4 MG eCW1 ([facility]) 300 mg 11/20/2020 12:00:00 AM EDT capsule 14 TAKE ONE CAPSULE BY MOUTH TWICE A DAY TAKE ONE CAPSULE BY MOUTH TWICE A DAY SOLD: 11/20/2020 [facility] Metronidazole 500 MG Oral Tablet METRONIDAZOLE 11/19/2020 12:0 0:00 AM EDT tablet 21 TAKE ONE TABLET BY MOUTH THREE T IMES A DAY TAKE ONE TABLET BY MOUTH THREE TIMES A DAY SOLD: 11/19/2020 [facility] 500 mg 11/19/2020 12:00:00 AM EDT tablet 14 TAKE ONE TABLET BY MOUTH TWICE A DAY TAKE ONE TABLET BY MOUTH TWICE A DAY SOLD: 11/19/2020 [facility] cefdinir 300 MG Oral Capsule Cefdinir 300 MG Cefdinir 300 MG 11/19/2020 12:00:00 AM EDT 1.0 {capsule} active Cefdinir 3 00 MG eCW1 ([facility]) 5 mg 11/19/2020 12:00:00 AM EDT tablet 21 TAKE ONE TABLET BY MOUTH EVERY 8 HOURS NEEDED FOR NAUSEA TAKE ONE TABLET BY MOUTH EVERY 8 HOURS A S NEEDED FOR NAUSEA SOLD: 11/19/2020 [facility] 10 mg 11/04/2020 12:00:00 AM EDT tablet 60 TAKE ONE TABLET BY MOUTH TWICE A DAY NEEDED TAKE ONE TABLET BY MOUTH TWICE A DAY NEEDED SOLD: 11/06/2020 [facility] gabapentin 800 MG Oral Tablet GABAPENTIN 11/04/2020 12:00:00 AM EDT ta blet 90 TAKE ONE TABLET BY MOUTH THREE TIMES A DAY TAKE ONE TABLET BY MOUTH THREE TIMES A DAY SOLD: 11/06/2020 [facility] 0.12 % 09/05/2020 12:00:00 AM EDT mouthwash 473 SWISH AND EXPECTORATE 5-10CC THREE TIMES A DAY * STARTING 09/06/2020* SWISH AND EXPECTORATE 5-10CC THREE TIMES A DAY * STARTING 09/06/2020* SOLD: 09/05/2020 [facility] 500 mg 09/05/2020 12:00:00 AM EDT capsule 15 TAKE ONE CAPSULE BY MOUTH THREE TIMES A DAY TAKE ONE CAPSULE BY MOUTH THREE TIMES A DAY SOLD: 09/05/2020 [facility] Acetaminophen 325 MG / Hydrocodone Bitartrate 5 MG Ora l Tablet 5-325 mg HYDROCODONE/ACETAMINOPHEN 09/05/2020 12:00:00 AM EDT tablet 12 TAKE ONE TABLET BY MOUTH EVERY 4-6 HOURS NEEDED FOR PAIN MAXIMUM DAILY DOSE = 4 TABLETS TAKE ONE TABLET BY MOUTH EVERY 4-6 HOURS NEEDED FOR PAIN MAXIMUM DAILY DOSE = 4 TABLETS SOLD: 09/05/2020 [facility] gabapentin 800 MG Oral Tablet GABAPENTIN 08/27/2020 12:00:00 AM EDT ta blet 90 TAKE ONE TABLET BY MOUTH THREE TIMES A DAY TAKE ONE TABLET BY MOUTH THREE TIMES A DAY SOLD: 09/04/2020 [facility] 10 mg 08/27/2020 12:00:00 AM EDT tablet 60 TAKE ONE TABLET BY MOUTH TWICE A DAY NEEDED TAKE ONE TABLET BY MOUTH TWICE A DAY NEEDED SOLD: 09/04/2020 [facility] Promethazine Hydrochloride 25 MG Oral Tablet PROMETHAZINE HC L 08/10/2020 12:00:00 AM EDT tablet 20 TAKE ONE TABLET BY MOUTH EVERY 6 HOURS NEEDED FOR NAUSEA AND VOMITING TAKE ONE TABLET BY MOUTH EVERY 6 HOURS A S NEEDED FOR NAUSEA AND VOMITING SOLD: 08/11/2020 [facility] 5-325 mg 08/10/2020 12:00:00 AM EDT tablet 12 TAKE ONE TABLET BY MOUTH EVERY 6 HOURS NEEDED FOR PAIN * MAXIMUM DAILY DOSE = 4 TAKE ONE TABLET BY MOUTH EVERY 6 HOURS NEEDED FOR PAIN * MAXIMUM DAILY DOSE = 4 SOLD: 08/11/2020 [facility] 4 mg 07/30/2020 12:00:00 AM EDT tablet 20 TAKE ONE TABLET BY MOUTH EVERY 6 HOURS TAKE ONE TABLET BY MOUTH EVERY 6 HOURS SOLD: 08/11/2020 [facility] 8.6 mg 07/14/2020 12:00:00 AM EST tablet 60 TAKE ONE TABLET BY MOUTH TWICE A DAY TAKE ONE TABLET BY MOUTH TWICE A DAY SOLD: 07/15/2020 [facility] tizanidine 4 MG Oral Tablet TIZANIDINE HCL 06/22/2020 12:00:00 AM EST tablet 90 TAKE ONE TABLET BY MOUTH THREE TIMES A DAY NEEDED T KATHLEEN ONE TABLET BY MOUTH THREE TIMES A DAY NEEDED SOLD: 06/22/2020 [facility] gabapentin 800 MG Oral Tablet GABAPENTIN 06/22/2020 12:00:00 AM EST ta blet 90 TAKE ONE TABLET BY MOUTH THREE TIMES A DAY TAKE ONE TABLET BY MOUTH THREE TIMES A DAY SOLD: 06/22/2020 [facility] Ondansetron 4 MG Disintegrating Oral Tablet ONDANSETRON 06/17/2020 12:00:00 AM EST tablet,disintegrating 30 DISSOLVE O NE TABLET ON TONGUE EVERY 4 HOURS NEEDED FOR NAUSEA DISSOLVE ONE TABLET ON TONGUE EVERY 4 HO URS NEEDED FOR NAUSEA SOLD: 09/22/2020 [facility] 4 mg 06/17/2020 12:00:00 AM EST tablet,disintegrating 3 0 DISSOLVE ONE TABLET ON TONGUE EVERY 4 HOURS NEEDED FOR NAUSEA DISSOLVE ONE TABLET ON TONGUE EVERY 4 HOURS NEEDED FOR NAUSEA SOLD: 06/20/2020 [facility] 500 mg 05/17/2020 12:00:00 AM EST tablet 20 TAKE ONE TABLET BY MOUTH TWO TIMES A DAY TAKE ONE TABLET BY MOUTH TWO TIMES A DAY SOLD: 05/18/2020 [facility] Metronidazole 500 MG Oral Tablet METRONIDAZOLE 05/17/2020 12:0 0:00 AM EST tablet 30 TAKE ONE TABLET BY MOUTH EVERY 8 HOURS TAKE ONE TABLET BY MOUTH EVERY 8 HOURS SOLD: 05/18/2020 [facility] gabapentin 800 MG Oral Tablet GABAPENTIN 04/27/2020 12:00:00 AM EST ta blet 90 TAKE ONE TABLET BY MOUTH THREE TIMES A DAY TAKE ONE TABLET BY MOUTH THREE TIMES A DAY SOLD: 04/27/2020 [facility] tizanidine 4 MG Oral Tablet TIZANIDINE HCL 04/26/2020 12:00:00 AM EST tablet 45 TAKE ONE TABLET BY MOUTH THREE TIMES A DAY NEEDED T KATHLEEN ONE TABLET BY MOUTH THREE TIMES A DAY NEEDED SOLD: 04/28/2020 [facility] gabapentin 800 MG Oral Tablet GABAPENTIN 03/31/2020 12:00:00 AM EST ta blet 90 TAKE ONE TABLET BY MOUTH THREE TIMES A DAY TAKE ONE TABLET BY MOUTH THREE TIMES A DAY SOLD: 04/01/2020 [facility] 4 mg 03/28/2020 12:00:00 AM EST tablet,disintegrating 3 0 DISSOLVE ONE TABLET ON TONGUE EVERY 4 HOURS NEEDED FOR NAUSEA DISSOLVE ONE TABLET ON TONGUE EVERY 4 HOURS NEEDED FOR NAUSEA SOLD: 03/30/2020 [facility] pantoprazole 40 MG Delayed Release Oral Tablet PANTOPRAZOLE SODIUM 02/24/2020 12:00:00 AM EDT tablet,delayed release (DR/EC) 90 T KATHLEEN ONE TABLET BY MOUTH TWICE A DAY TAKE ONE TABLET BY MOUTH TWICE A DAY SOLD: 05/10/2020 [facility] pantoprazole 40 MG Delayed Release Oral Tablet PANTOPRAZOLE SODIUM 02/24/2020 12:00:00 AM EDT tablet,delayed release (DR/EC) 60 T KATHLEEN ONE TABLET BY MOUTH TWICE A DAY TAKE ONE TABLET BY MOUTH TWICE A DAY SOLD: 02/20/2021 [facility] pantoprazole 40 MG Delayed Release Oral Tablet PANTOPRAZOLE SODIUM 02/24/2020 12:00:00 AM EDT tablet,delayed release (DR/EC) 90 T KATHLEEN ONE TABLET BY MOUTH TWICE A DAY TAKE ONE TABLET BY MOUTH TWICE A DAY SOLD: 02/25/2020 [facility] Famotidine 20 MG Oral Tablet FAMOTIDINE 02/24/2020 12:00:00 AM EDT tab let 60 TAKE ONE TABLET BY MOUTH TWICE A DAY TAKE ONE TABLET BY MOUTH TWICE A DAY SOLD: 06/20/2020 [facility] 20 mg 02/24/2020 12:00:00 AM EDT tablet 60 TAKE ONE TABLET BY MOUTH TWICE A DAY TAKE ONE TABLET BY MOUTH TWICE A DAY SOLD: 02/25/2020 [facility] pantoprazole 40 MG Delayed Release Oral Tablet PANTOPRAZOLE SODIUM 02/24/2020 12:00:00 AM EDT tablet,delayed release (DR/EC) 60 T KATHLEEN ONE TABLET BY MOUTH TWICE A DAY TAKE ONE TABLET BY MOUTH TWICE A DAY SOLD: 06/20/2020 [facility] pantoprazole 40 MG Delayed Release Oral Tablet PANTOPRAZOLE SODIUM 02/24/2020 12:00:00 AM EDT tablet,delayed release (DR/EC) 60 T KATHLEEN ONE TABLET BY MOUTH TWICE A DAY TAKE ONE TABLET BY MOUTH TWICE A DAY SOLD: 09/04/2020 [facility] pantoprazole 40 MG Delayed Release Oral Tablet PANTOPRAZOLE SODIUM 02/24/2020 12:00:00 AM EDT tablet,delayed release (DR/EC) 60 T KATHLEEN ONE TABLET BY MOUTH TWICE A DAY TAKE ONE TABLET BY MOUTH TWICE A DAY SOLD: 01/10/2021 [facility] pantoprazole 40 MG Delayed Release Oral Tablet PANTOPRAZOLE SODIUM 02/24/2020 12:00:00 AM EDT tablet,delayed release (DR/EC) 60 T KATHLEEN ONE TABLET BY MOUTH TWICE A DAY TAKE ONE TABLET BY MOUTH TWICE A DAY SOLD: 11/30/2020 [facility] pantoprazole 40 MG Delayed Release Oral Tablet PANTOPRAZOLE SODIUM 02/24/2020 12:00:00 AM EDT tablet,delayed release (DR/EC) 60 T KATHLEEN ONE TABLET BY MOUTH TWICE A DAY TAKE ONE TABLET BY MOUTH TWICE A DAY SOLD: 10/18/2020 [facility] pantoprazole 40 MG Delayed Release Oral Tablet Pantoprazole Sodium 40 MG Oral Tablet Delayed Release (Protonix) Pantoprazole Sodium 40 MG Oral Tablet De layed Release (Protonix) 02/23/2020 12:00:00 AM EDT 40 mg Oral active Take 1 tablet by mouth Two Times Daily [facility] Famotidine 20 MG Oral Tablet Famotidine 20 MG Oral Tab let (Pepcid) Famotidine 20 MG Oral Tablet (Pepcid) 02/23/2020 12:00:00 AM EDT 20 mg Oral active Take 1 tablet by mouth Two Times Daily [facility] gabapentin 800 MG Oral Tablet GABAPENTIN 01/28/2020 12:00:00 AM EDT ta blet 90 TAKE ONE TABLET BY MOUTH THREE TIMES A DAY TAKE ONE TABLET BY MOUTH THREE TIMES A DAY SOLD: 02/02/2020 [facility] pantoprazole 40 MG Delayed Release Oral Tablet Pantoprazole Sodium 40 MG Oral Tablet Delayed Release (PROTONIX) Pantoprazole Sodium 40 MG Oral Tablet De layed Release (PROTONIX) 11/19/2019 12:00:00 AM EDT 40 mg Oral aborted Take 1 tablet by mouth Two times daily before breakfast and dinner [facility] pantoprazole 40 MG Delayed Release Oral Tablet PANTOPRAZOLE SODIUM 07/23/2019 12:00:00 AM EDT tablet,delayed release (DR/EC) 30 T KATHLEEN ONE TABLET BY MOUTH EVERY DAY TAKE ONE TABLET BY MOUTH EVERY DAY SOLD: 01/22/2020 [facility] Ranitidine 300 MG Oral Tablet raNITIdine HCl 300 MG Or al Tablet (ZANTAC) raNITIdine HCl 300 MG Oral Tablet (ZANTAC) 04/22/2019 12:00:00 AM EST 300 mg Oral active Take 1 tablet by f[address]ando [facility] 40 mg 02/03/2019 12:00:00 AM EDT tablet 30 TAKE ONE TABLET BY MOUTH EVERY EVENING TAKE ONE TABLET BY MOUTH EVERY EVENING SOLD: 01/22/2020 [facility] Famotidine 40 MG Oral Tablet famotidine (PEPCID) 40 MG tablet famotidine (PEPCID) 40 MG tablet 02/02/2019 12:00:00 AM EDT 40 mg Oral active Take [address] [facility] Amoxicillin 500 MG Oral Capsule amoxicillin 500 mg cap gonzalo amoxicillin 500 mg capsule completed amoxicillin 50 0 MG Oral Capsule [facility] ([facility]) gabapentin 600 MG Oral Tablet gabapentin 600 mg tablet gabap entin 600 mg tablet completed gabapentin 600 MG Oral Tablet [facility] ([facility]) ranitidine hydrochloride 150 mg tabs completed ranitidine hydrochloride 150 mg tabs [facility] ([facility]) Acetaminophen 325 MG / Hydrocodone Rosmery trate 5 MG Oral Tablet hydrocodone 5 mg- acetaminophen 325 mg tablet hydrocodone 5 mg-acetaminophen 325 mg tablet completed acetaminophen 325 MG / hydrocodone bitartrate 5 MG Oral Tablet [facility] ([facility]) pantoprazole 20 MG Delayed Release Oral Tablet [Protonix] Protonix 20 mg tablet,delayed release Take 1 tablet every day by oral route. Protonix 20 mg tablet,delayed release Take 1 tablet every day by oral route. 1 completed pantoprazole 20 MG Delayed Relea se Oral Tablet [Protonix] [facility] ([facility]) gabapentin 600 mg tabs completed gabapentin 600 mg tabs [facility] ([facility]) pantoprazole 20 MG Delayed Release Oral Tablet [Protonix] Protonix 20 mg tablet,delayed release Take 1 tablet every day by oral route. Protonix 20 mg tablet,delayed release Take 1 tablet every day by oral route. 1 completed pantoprazole 20 MG Delayed Relea se Oral Tablet [Protonix] [facility] ([facility]) ranitidine hydrochloride 150 mg tabs completed ranitidine hydrochloride 150 mg tabs [facility] ([facility]) gabapentin 400 mg caps completed gabapentin 400 mg caps [facility] ([facility]) Famotidine 40 MG Oral Tablet famotidine 40 mg tablet famotidine 40 mg tablet completed famotidine 40 MG Oral Tablet [facility] ([facility]) sennosides, SHELTER 8.6 MG Oral Tablet [Senna-Time] senna 8.6 mg tablet senna 8.6 mg tablet completed sennosi shawn, SHELTER 8.6 MG Oral Tablet [Senna-Time] [facility] ([facility]) Metoclopramide 10 MG Oral Tablet metoclo pramide 10 mg tablet TAKE ONE TABLET BY MOUTH BEFORE MEALS THREE TIMES A DAY AND AT BEDTIME metoclopramide 10 mg tablet TAKE ONE TABLET BY MOUTH BEFORE MEALS THREE TIMES A DAY AND AT BEDTIME completed metoclopramide 10 MG Oral Tablet [facility] ([facility]) gabapentin 600 mg tabs completed gabapentin 600 mg tabs [facility] ([facility]) Famotidine 20 MG Oral Tablet famotidine 20 mg tablet famotidine 20 mg tablet completed famotidine 20 MG Oral Tablet [facility] ([facility]) Ondansetron 4 MG Oral Tablet ondansetron HCl 4 mg tabl et ondansetron HCl 4 mg tablet completed ondansetron 4 M G Oral Tablet [facility] ([facility]) 24 HR Nicotine 0.583 MG/HR Transdermal P atch nicotine 14 mg/24 hr daily transdermal patch APPLY 1 PATCH TO SKIN ONCE DAILY nicotine 14 mg/24 hr daily transdermal patch APPLY 1 PATCH TO SKIN ONCE DAILY completed 24 HR nicotine 0.583 MG/HR Transdermal System [facility] ([facility]) famotidine 40 mg tabs completed famotidine 40 mg tabs [facility] ([facility]) pantoprazole sodium 40 mg tbec completed pantoprazole sodium 40 mg tbec [facility] ([facility]) Acetaminophen 325 MG / Hydrocodone Rosmery trate 5 MG Oral Tablet hydrocodone 5 mg- acetaminophen 325 mg tablet hydrocodone 5 mg-acetaminophen 325 mg tablet completed acetaminophen 325 MG / hydrocodone bitartrate 5 MG Oral Tablet [facility] ([facility]) Acetaminophen 325 MG / Oxycodone Hydroch loride 5 MG Oral Tablet oxycodone- acetaminophen 5 mg-325 mg tablet oxycodone-acetaminophen 5 mg-325 mg tablet completed acetaminop hen 325 MG / oxycodone hydrochloride 5 MG Oral Tablet [facility] ([facility]) Metronidazole 500 MG Oral Tablet metroni dazole 500 mg tablet TAKE ONE TABLET BY MOUTH EVERY 8 HOURS metronidazole 500 mg tablet TAKE ONE TAB LET BY MOUTH EVERY 8 HOURS completed metronidazole 5 00 MG Oral Tablet [facility] ([facility]) pantoprazole sodium 40 mg tbec completed pantoprazole sodium 40 mg tbec [facility]) Amoxicillin 500 MG Oral Capsule amoxicillin 500 mg cap gonzalo amoxicillin 500 mg capsule completed amoxicillin 50 0 MG Oral Capsule [facility] ([facility]) metoclopramide hydrochloride 10 mg tabs completed metoclopramide hydrochloride 10 mg tabs [facility] ([facility]) tizanidine 4 MG Oral Tablet tizanidine 4 mg tablet TAKE ONE TABLET BY MOUTH THREE TIMES A DAY NEEDED tizanidine 4 mg tablet TAKE ONE TABLET B Y MOUTH THREE TIMES A DAY NEEDED completed tizanidine 4 MG Oral Tablet [facility] ([facility]) Famotidine 40 MG Oral Tablet famotidine 40 mg tablet famotidine 40 mg tablet completed famotidine 40 MG Oral Tablet [facility] ([facility]) Metronidazole 500 MG Oral Tablet metronidazole 500 mg tablet metronidazole 500 mg tablet completed metronidazol e 500 MG Oral Tablet [facility] ([facility]) ondansetron odt 4 mg tbdp compl eted ondansetron odt 4 mg tbdp [facility] ([facility]) sennosides, SHELTER 8.6 MG Oral Tablet [Senna-Time] senna 8.6 mg tablet senna 8.6 mg tablet completed sennosi shawn, SHELTER 8.6 MG Oral Tablet [Senna-Time] [facility] ([facility]) ondansetron odt 4 mg tbdp compl eted ondansetron odt 4 mg tbdp [facility] ([facility]) sennosides, SHELTER 8.6 MG Oral Tablet [Senna-Time] senna 8.6 mg tablet senna 8.6 mg tablet completed sennosi shawn, SHELTER 8.6 MG Oral Tablet [Senna-Time] [facility] ([facility]) ranitidine hydrochloride 150 mg tabs completed ranitidine hydrochloride 150 mg tabs [facility] ([facility]) Metoclopramide 10 MG Oral Tablet metoclo pramide 10 mg tablet TAKE ONE TABLET BY MOUTH BEFORE MEALS THREE TIMES A DAY AND AT BEDTIME metoclopramide 10 mg tablet TAKE ONE TABLET BY MOUTH BEFORE MEALS THREE TIMES A DAY AND AT BEDTIME completed metoclopramide 10 MG Oral Tablet [facility] ([facility]) Acetaminophen 325 MG / Hydrocodone Rosmery trate 5 MG Oral Tablet hydrocodone 5 mg- acetaminophen 325 mg tablet hydrocodone 5 mg-acetaminophen 325 mg tablet completed acetaminophen 325 MG / hydrocodone bitartrate 5 MG Oral Tablet [facility] ([facility]) ranitidine hydrochloride 150 mg tabs completed ranitidine hydrochloride 150 mg tabs [facility] ([facility]) Famotidine 20 MG Oral Tablet famotidine 20 mg tablet famotidine 20 mg tablet completed famotidine 20 MG Oral Tablet [facility] ([facility]) gabapentin 800 mg tabs completed gabapentin 800 mg tabs [facility] ([facility]) gabapentin 600 mg tabs completed gabapentin 600 mg tabs [facility] ([facility]) Famotidine 40 MG Oral Tablet famotidine 40 mg tablet famotidine 40 mg tablet completed famotidine 40 MG Oral Tablet [facility] ([facility]) gabapentin 800 mg tabs completed gabapentin 800 mg tabs [facility] ([facility]) Metronidazole 500 MG Oral Tablet metronidazole 500 mg tablet metronidazole 500 mg tablet completed metronidazol e 500 MG Oral Tablet [facility]) gabapentin 600 MG Oral Tablet gabapentin 600 mg tablet gabap entin 600 mg tablet completed gabapentin 600 MG Oral Tablet [facility] ([facility]) famotidine 40 mg tabs completed famotidine 40 mg tabs [facility] ([facility]) Famotidine 40 MG Oral Tablet famotidine 40 mg tablet famotidine 40 mg tablet completed famotidine 40 MG Oral Tablet [facility] ([facility]) Metoclopramide 10 MG Oral Tablet metoclo pramide 10 mg tablet TAKE ONE TABLET BY MOUTH BEFORE MEALS THREE TIMES A DAY AND AT BEDTIME metoclopramide 10 mg tablet TAKE ONE TABLET BY MOUTH BEFORE MEALS THREE TIMES A DAY AND AT BEDTIME completed metoclopramide 10 MG Oral Tablet [facility] ([facility]) Acetaminophen 325 MG / Hydrocodone Rosmery trate 5 MG Oral Tablet hydrocodone 5 mg- acetaminophen 325 mg tablet hydrocodone 5 mg-acetaminophen 325 mg tablet completed acetaminophen 325 MG / hydrocodone bitartrate 5 MG Oral Tablet [facility] ([facility]) gabapentin 600 MG Oral Tablet gabapentin 600 mg tablet gabap entin 600 mg tablet completed gabapentin 600 MG Oral Tablet [facility] ([facility]) sennosides, SHELTER 8.6 MG Oral Tablet [Senna-Time] senna 8.6 mg tablet senna 8.6 mg tablet completed sennosi shawn, SHELTER 8.6 MG Oral Tablet [Senna-Time] [facility] ([facility]) metoclopramide hydrochloride 10 mg tabs completed metoclopramide hydrochloride 10 mg tabs [facility] ([facility]) famotidine 40 mg tabs completed famotidine 40 mg tabs [facility] ([facility]) famotidine 40 mg tabs completed famotidine 40 mg tabs [facility] ([facility]) Promethazine Hydrochloride 25 MG Oral Tablet promethaz ine 25 mg tablet promethazine 25 mg tablet completed promethazine hydrochloride 25 MG Oral Tablet [facility] ([facility]) Famotidine 40 MG Oral Tablet famotidine 40 mg tablet famotidine 40 mg tablet completed famotidine 40 MG Oral Tablet [facility] ([facility]) tizanidine 4 MG Oral Tablet tizanidine 4 mg tablet TAKE ONE TABLET BY MOUTH THREE TIMES A DAY NEEDED tizanidine 4 mg tablet TAKE ONE TABLET B Y MOUTH THREE TIMES A DAY NEEDED completed tizanidine 4 MG Oral Tablet [facility] ([facility]) Amoxicillin 500 MG Oral Capsule amoxicillin 500 mg cap gonzalo amoxicillin 500 mg capsule completed amoxicillin 50 0 MG Oral Capsule [facility] ([facility]) ranitidine hydrochloride 150 mg tabs completed ranitidine hydrochloride 150 mg tabs [facility] ([facility]) pantoprazole sodium 40 mg tbec completed pantoprazole sodium 40 mg tbec [facility] ([facility]) cefdinir 300 MG Oral Capsule cefdinir 300 mg capsule cefdinir 30 0 mg capsule completed cefdinir 300 M G Oral Capsule [facility] ([facility]) gabapentin 400 mg caps completed gabapentin 400 mg caps [facility] ([facility]) Metronidazole 500 MG Oral Tablet metroni dazole 500 mg tablet TAKE ONE TABLET BY MOUTH EVERY 8 HOURS metronidazole 500 mg tablet TAKE ONE TAB LET BY MOUTH EVERY 8 HOURS completed metronidazole 5 00 MG Oral Tablet [facility] ([facility]) Ondansetron 4 MG Oral Tablet ondansetron HCl 4 mg tabl et ondansetron HCl 4 mg tablet completed ondansetron 4 M G Oral Tablet [facility] ([facility]) Famotidine 40 MG Oral Tablet famotidine 40 mg tablet famotidine 40 mg tablet completed famotidine 40 MG Oral Tablet [facility] ([facility]) ondansetron odt 4 mg tbdp compl eted ondansetron odt 4 mg tbdp [facility] ([facility]) gabapentin 400 mg caps completed gabapentin 400 mg caps [facility] ([facility]) Amoxicillin 500 MG Oral Capsule amoxicillin 500 mg cap gonzalo amoxicillin 500 mg capsule completed amoxicillin 50 0 MG Oral Capsule [facility] ([facility]) ranitidine hydrochloride 150 mg tabs completed ranitidine hydrochloride 150 mg tabs [facility] ([facility]) gabapentin 400 mg caps completed gabapentin 400 mg caps [facility] ([facility]) ranitidine hydrochloride 150 mg tabs completed ranitidine hydrochloride 150 mg tabs [facility] ([facility]) Acetaminophen 325 MG / Hydrocodone Rosmery trate 5 MG Oral Tablet hydrocodone 5 mg- acetaminophen 325 mg tablet hydrocodone 5 mg-acetaminophen 325 mg tablet completed acetaminophen 325 MG / hydrocodone bitartrate 5 MG Oral Tablet [facility] ([facility]) famotidine 40 mg tabs completed famotidine 40 mg tabs [facility] ([facility]) tizanidine 4 MG Oral Tablet tizanidine 4 mg tablet TAKE ONE TABLET BY MOUTH THREE TIMES A DAY NEEDED tizanidine 4 mg tablet TAKE ONE TABLET B Y MOUTH THREE TIMES A DAY NEEDED completed tizanidine 4 MG Oral Tablet [facility] ([facility]) pantoprazole sodium 40 mg tbec completed pantoprazole sodium 40 mg tbec [facility] ([facility]) gabapentin 600 MG Oral Tablet gabapentin 600 mg tablet gabap entin 600 mg tablet completed gabapentin 600 MG Oral Tablet [facility]) ondansetron odt 4 mg tbdp compl eted ondansetron odt 4 mg tbdp [facility]) metoclopramide hydrochloride 10 mg tabs completed metoclopramide hydrochloride 10 mg tabs [facility]) famotidine 40 mg tabs completed famotidine 40 mg tabs [facility] ([facility]) Famotidine 20 MG Oral Tablet famotidine 20 mg tablet famotidine 20 mg tablet completed famotidine 20 MG Oral Tablet [facility] ([facility]) Famotidine 40 MG Oral Tablet famotidine 40 mg tablet famotidine 40 mg tablet completed famotidine 40 MG Oral Tablet [facility] ([facility]) metoclopramide hydrochloride 10 mg tabs completed metoclopramide hydrochloride 10 mg tabs [facility]) Promethazine Hydrochloride 25 MG Oral Tablet promethaz ine 25 mg tablet promethazine 25 mg tablet completed promethazine hydrochloride 25 MG Oral Tablet [facility] ([facility]) pantoprazole 20 MG Delayed Release Oral Tablet [Protonix] Protonix 20 mg tablet,delayed release Take 1 tablet every day by oral route. Protonix 20 mg tablet,delayed release Take 1 tablet every day by oral route. 1 completed pantoprazole 20 MG Delayed Relea se Oral Tablet [Protonix] [facility] ([facility]) Metoclopramide 5 MG Oral Tablet metoclopramide 5 mg ta blet metoclopramide 5 mg tablet completed metoclopramide 5 MG Oral Tablet [facility] ([facility]) gabapentin 600 MG Oral Tablet gabapentin 600 mg tablet gabap entin 600 mg tablet completed gabapentin 600 MG Oral Tablet [facility] ([facility]) pantoprazole sodium 40 mg tbec completed pantoprazole sodium 40 mg tbec [facility] ([facility]) gabapentin 800 mg tabs completed gabapentin 800 mg tabs [facility] ([facility]) Metronidazole 500 MG Oral Tablet metronidazole 500 mg tablet metronidazole 500 mg tablet completed metronidazol e 500 MG Oral Tablet [facility] ([facility]) Acetaminophen 325 MG / Oxycodone Hydroch loride 5 MG Oral Tablet oxycodone- acetaminophen 5 mg-325 mg tablet oxycodone-acetaminophen 5 mg-325 mg tablet completed acetaminop hen 325 MG / oxycodone hydrochloride 5 MG Oral Tablet [facility] ([facility]) gabapentin 600 MG Oral Tablet gabapentin 600 mg tablet gabap entin 600 mg tablet completed gabapentin 600 MG Oral Tablet [facility] ([facility]) Promethazine Hydrochloride 25 MG Oral Tablet promethaz ine 25 mg tablet promethazine 25 mg tablet completed promethazine hydrochloride 25 MG Oral Tablet [facility] ([facility]) metoclopramide hydrochloride 10 mg tabs completed metoclopramide hydrochloride 10 mg tabs [facility] ([facility]) famotidine 40 mg tabs completed famotidine 40 mg tabs [facility] ([facility]) metoclopramide hydrochloride 10 mg tabs completed metoclopramide hydrochloride 10 mg tabs [facility] ([facility]) Metoclopramide 10 MG Oral Tablet metoclo pramide 10 mg tablet TAKE ONE TABLET BY MOUTH BEFORE MEALS THREE TIMES A DAY AND AT BEDTIME metoclopramide 10 mg tablet TAKE ONE TABLET BY MOUTH BEFORE MEALS THREE TIMES A DAY AND AT BEDTIME completed metoclopramide 10 MG Oral Tablet [facility] ([facility]) ondansetron odt 4 mg tbdp compl eted ondansetron odt 4 mg tbdp [facility] ([facility]) gabapentin 600 MG Oral Tablet gabapentin 600 mg tablet gabap entin 600 mg tablet completed gabapentin 600 MG Oral Tablet [facility] ([facility]) Acetaminophen 325 MG / Oxycodone Hydroch loride 5 MG Oral Tablet oxycodone- acetaminophen 5 mg-325 mg tablet oxycodone-acetaminophen 5 mg-325 mg tablet completed acetaminop hen 325 MG / oxycodone hydrochloride 5 MG Oral Tablet [facility] ([facility]) pantoprazole 20 MG Delayed Release Oral Tablet [Protonix] Protonix 20 mg tablet,delayed release Take 1 tablet every day by oral route. Protonix 20 mg tablet,delayed release Take 1 tablet every day by oral route. 1 completed pantoprazole 20 MG Delayed Relea se Oral Tablet [Protonix] [facility] ([facility]) ranitidine hydrochloride 150 mg tabs completed ranitidine hydrochloride 150 mg tabs [facility] ([facility]) pantoprazole sodium 40 mg tbec completed pantoprazole sodium 40 mg tbec [facility] ([facility]) gabapentin 600 mg tabs completed gabapentin 600 mg tabs [facility] ([facility]) pantoprazole 20 MG Delayed Release Oral Tablet [Protonix] Protonix 20 mg tablet,delayed release Take 1 tablet every day by oral route. Protonix 20 mg tablet,delayed release Take 1 tablet every day by oral route. 1 completed pantoprazole 20 MG Delayed Relea se Oral Tablet [Protonix] [facility] ([facility]) ondansetron odt 4 mg tbdp compl eted ondansetron odt 4 mg tbdp [facility] ([facility]) gabapentin 400 mg caps completed gabapentin 400 mg caps [facility] ([facility]) metoclopramide hydrochloride 10 mg tabs completed metoclopramide hydrochloride 10 mg tabs [facility] ([facility]) Acetaminophen 325 MG / Hydrocodone Rosmery trate 5 MG Oral Tablet hydrocodone 5 mg- acetaminophen 325 mg tablet hydrocodone 5 mg-acetaminophen 325 mg tablet completed acetaminophen 325 MG / hydrocodone bitartrate 5 MG Oral Tablet [facility] ([facility]) Amoxicillin 500 MG Oral Capsule amoxicillin 500 mg cap gonzalo amoxicillin 500 mg capsule completed amoxicillin 50 0 MG Oral Capsule [facility] ([facility]) Ciprofloxacin 500 MG Oral Tablet ciprofloxacin 500 mg tablet ciprofloxacin 500 mg tablet completed ciprofloxaci n 500 MG Oral Tablet [facility] ([facility]) Ondansetron 4 MG Oral Tablet ondansetron HCl 4 mg tabl et ondansetron HCl 4 mg tablet completed ondansetron 4 M G Oral Tablet [facility] ([facility]) famotidine 40 mg tabs completed famotidine 40 mg tabs [facility] ([facility]) tizanidine 4 MG Oral Tablet tizanidine 4 mg tablet TAKE ONE TABLET BY MOUTH THREE TIMES A DAY NEEDED tizanidine 4 mg tablet TAKE ONE TABLET B Y MOUTH THREE TIMES A DAY NEEDED completed tizanidine 4 MG Oral Tablet [facility] ([facility]) metoclopramide hydrochloride 10 mg tabs completed metoclopramide hydrochloride 10 mg tabs [facility] ([facility]) pantoprazole sodium 40 mg tbec completed pantoprazole sodium 40 mg tbec [facility] ([facility]) gabapentin 600 mg tabs completed gabapentin 600 mg tabs [facility] ([facility]) gabapentin 800 mg tabs completed gabapentin 800 mg tabs [facility] ([facility]) metoclopramide hydrochloride 10 mg tabs completed metoclopramide hydrochloride 10 mg tabs [facility] ([facility]) pantoprazole 20 MG Delayed Release Oral Tablet [Protonix] Protonix 20 mg tablet,delayed release Take 1 tablet every day by oral route. Protonix 20 mg tablet,delayed release Take 1 tablet every day by oral route. 1 completed pantoprazole 20 MG Delayed Relea se Oral Tablet [Protonix] [facility] ([facility]) gabapentin 800 mg tabs completed gabapentin 800 mg tabs [facility] ([facility]) Acetaminophen 325 MG / Hydrocodone Rosmery trate 5 MG Oral Tablet hydrocodone 5 mg- acetaminophen 325 mg tablet hydrocodone 5 mg-acetaminophen 325 mg tablet completed acetaminophen 325 MG / hydrocodone bitartrate 5 MG Oral Tablet [facility] ([facility]) Ciprofloxacin 500 MG Oral Tablet ciprofl oxacin 500 mg tablet TAKE ONE TABLET BY MOUTH TWO TIMES A DAY ciprofloxacin 500 mg tablet TAKE ONE TAB LET BY MOUTH TWO TIMES A DAY completed ciprofloxa ru 500 MG Oral Tablet [facility] ([facility]) chlorhexidine gluconate 1.2 MG/ML Mouthw macario chlorhexidine gluconate 0.12 % mouthwash chlorhexidine gluconate 0.12 % mouthwash completed chlorhexidine gluconate 1.2 MG/ML Mouthwash [facility] ([facility]) Metronidazole 500 MG Oral Tablet metroni dazole 500 mg tablet TAKE ONE TABLET BY MOUTH EVERY 8 HOURS metronidazole 500 mg tablet TAKE ONE TAB LET BY MOUTH EVERY 8 HOURS completed metronidazole 5 00 MG Oral Tablet [facility] ([facility]) Famotidine 40 MG Oral Tablet famotidine 40 mg tablet famotidine 40 mg tablet completed famotidine 40 MG Oral Tablet [facility] ([facility]) Ciprofloxacin 500 MG Oral Tablet ciprofl oxacin 500 mg tablet TAKE ONE TABLET BY MOUTH TWO TIMES A DAY ciprofloxacin 500 mg tablet TAKE ONE TAB LET BY MOUTH TWO TIMES A DAY completed ciprofloxa ru 500 MG Oral Tablet [facility] ([facility]) ranitidine hydrochloride 150 mg tabs completed ranitidine hydrochloride 150 mg tabs [facility] ([facility]) famotidine 40 mg tabs completed famotidine 40 mg tabs [facility] ([facility]) ranitidine hydrochloride 150 mg tabs completed ranitidine hydrochloride 150 mg tabs [facility] ([facility]) Famotidine 20 MG Oral Tablet famotidine 20 mg tablet famotidine 20 mg tablet completed famotidine 20 MG Oral Tablet [facility] ([facility]) ondansetron odt 4 mg tbdp compl eted ondansetron odt 4 mg tbdp [facility] ([facility]) famotidine 40 mg tabs completed famotidine 40 mg tabs [facility] ([facility]) gabapentin 600 MG Oral Tablet gabapentin 600 mg tablet gabap entin 600 mg tablet completed gabapentin 600 MG Oral Tablet [facility] ([facility]) metoclopramide hydrochloride 10 mg tabs completed metoclopramide hydrochloride 10 mg tabs [facility] ([facility]) metoclopramide hydrochloride 10 mg tabs completed metoclopramide hydrochloride 10 mg tabs [facility] ([facility]) gabapentin 600 mg tabs completed gabapentin 600 mg tabs [facility] ([facility]) ondansetron odt 4 mg tbdp compl eted ondansetron odt 4 mg tbdp [facility] ([facility]) metoclopramide hydrochloride 10 mg tabs completed metoclopramide hydrochloride 10 mg tabs [facility] ([facility]) ranitidine hydrochloride 150 mg tabs completed ranitidine hydrochloride 150 mg tabs [facility] ([facility]) Metronidazole 500 MG Oral Tablet metronidazole 500 mg tablet metronidazole 500 mg tablet completed metronidazol e 500 MG Oral Tablet [facility] ([facility]) pantoprazole sodium 40 mg tbec completed pantoprazole sodium 40 mg tbec [facility] ([facility]) ondansetron odt 4 mg tbdp compl eted ondansetron odt 4 mg tbdp [facility] ([facility]) gabapentin 600 MG Oral Tablet gabapentin 600 mg tablet gabap entin 600 mg tablet completed gabapentin 600 MG Oral Tablet [facility] ([facility]) famotidine 40 mg tabs completed famotidine 40 mg tabs [facility] ([facility]) gabapentin 400 mg caps completed gabapentin 400 mg caps [facility] ([facility]) ondansetron odt 4 mg tbdp compl eted ondansetron odt 4 mg tbdp [facility] ([facility]) ondansetron odt 4 mg tbdp compl eted ondansetron odt 4 mg tbdp [facility] ([facility]) gabapentin 600 MG Oral Tablet gabapentin 600 mg tablet gabap entin 600 mg tablet completed gabapentin 600 MG Oral Tablet [facility] ([facility]) gabapentin 600 MG Oral Tablet gabapentin 600 mg tablet gabap entin 600 mg tablet completed gabapentin 600 MG Oral Tablet [facility] ([facility]) metoclopramide hydrochloride 10 mg tabs completed metoclopramide hydrochloride 10 mg tabs [facility] ([facility]) famotidine 40 mg tabs completed famotidine 40 mg tabs [facility] ([facility]) gabapentin 600 MG Oral Tablet gabapentin 600 mg tablet gabap entin 600 mg tablet completed gabapentin 600 MG Oral Tablet [facility] ([facility]) famotidine 40 mg tabs completed famotidine 40 mg tabs [facility] ([facility]) metoclopramide hydrochloride 10 mg tabs completed metoclopramide hydrochloride 10 mg tabs [facility] ([facility]) gabapentin 600 mg tabs completed gabapentin 600 mg tabs [facility] ([facility]) gabapentin 400 mg caps completed gabapentin 400 mg caps [facility] ([facility]) Ondansetron 4 MG Oral Tablet ondansetron HCl 4 mg tabl et ondansetron HCl 4 mg tablet completed ondansetron 4 M G Oral Tablet [facility] ([facility]) gabapentin 600 MG Oral Tablet gabapentin 600 mg tablet gabap entin 600 mg tablet completed gabapentin 600 MG Oral Tablet [facility] ([facility]) Amoxicillin 500 MG Oral Capsule amoxicillin 500 mg cap gonzalo amoxicillin 500 mg capsule completed amoxicillin 50 0 MG Oral Capsule [facility] ([facility]) pantoprazole sodium 40 mg tbec completed pantoprazole sodium 40 mg tbec [facility] ([facility]) pantoprazole sodium 40 mg tbec completed pantoprazole sodium 40 mg tbec [facility]) metoclopramide hydrochloride 10 mg tabs completed metoclopramide hydrochloride 10 mg tabs [facility] ([facility]) Metronidazole 500 MG Oral Tablet metroni dazole 500 mg tablet TAKE ONE TABLET BY MOUTH EVERY 8 HOURS metronidazole 500 mg tablet TAKE ONE TAB LET BY MOUTH EVERY 8 HOURS completed metronidazole 5 00 MG Oral Tablet [facility] ([facility]) Ciprofloxacin 500 MG Oral Tablet ciprofloxacin 500 mg tablet ciprofloxacin 500 mg tablet completed ciprofloxaci n 500 MG Oral Tablet [facility] ([facility]) Ciprofloxacin 500 MG Oral Tablet ciprofl oxacin 500 mg tablet TAKE ONE TABLET BY MOUTH TWO TIMES A DAY ciprofloxacin 500 mg tablet TAKE ONE TAB LET BY MOUTH TWO TIMES A DAY completed ciprofloxa ru 500 MG Oral Tablet [facility] ([facility]) pantoprazole 20 MG Delayed Release Oral Tablet [Protonix] Protonix 20 mg tablet,delayed release Take 1 tablet every day by oral route. Protonix 20 mg tablet,delayed release Take 1 tablet every day by oral route. 1 completed pantoprazole 20 MG Delayed Relea se Oral Tablet [Protonix] [facility] ([facility]) gabapentin 800 mg tabs completed gabapentin 800 mg tabs [facility] ([facility]) gabapentin 800 mg tabs completed gabapentin 800 mg tabs [facility] ([facility]) tizanidine 4 MG Oral Tablet tizanidine 4 mg tablet TAKE ONE TABLET BY MOUTH THREE TIMES A DAY NEEDED tizanidine 4 mg tablet TAKE ONE TABLET B Y MOUTH THREE TIMES A DAY NEEDED completed tizanidine 4 MG Oral Tablet [facility] ([facility]) gabapentin 400 mg caps completed gabapentin 400 mg caps [facility] ([facility]) ondansetron odt 4 mg tbdp compl eted ondansetron odt 4 mg tbdp [facility] ([facility]) tizanidine 4 MG Oral Tablet tizanidine 4 mg tablet TAKE ONE TABLET BY MOUTH THREE TIMES A DAY NEEDED tizanidine 4 mg tablet TAKE ONE TABLET B Y MOUTH THREE TIMES A DAY NEEDED completed tizanidine 4 MG Oral Tablet [facility] ([facility]) gabapentin 400 mg caps completed gabapentin 400 mg caps [facility] ([facility]) Famotidine 40 MG Oral Tablet famotidine 40 mg tablet famotidine 40 mg tablet completed famotidine 40 MG Oral Tablet [facility] ([facility]) Baclofen 10 MG Oral Tablet baclofen 10 m g tablet TAKE ONE TABLET BY MOUTH TWICE A DAY NEEDED baclofen 10 mg tablet TAKE ONE TABLET BY MOUTH TWICE A DAY NEEDED completed baclofen 10 MG Oral Tablet [facility] ([facility]) gabapentin 600 mg tabs completed gabapentin 600 mg tabs [facility] ([facility]) famotidine 40 mg tabs completed famotidine 40 mg tabs [facility] ([facility]) pantoprazole 20 MG Delayed Release Oral Tablet [Protonix] Protonix 20 mg tablet,delayed release Take 1 tablet every day by oral route. Protonix 20 mg tablet,delayed release Take 1 tablet every day by oral route. 1 completed pantoprazole 20 MG Delayed Relea se Oral Tablet [Protonix] [facility] ([facility]) gabapentin 400 mg caps completed gabapentin 400 mg caps [facility] ([facility]) Ciprofloxacin 500 MG Oral Tablet ciprofl oxacin 500 mg tablet TAKE ONE TABLET BY MOUTH TWO TIMES A DAY ciprofloxacin 500 mg tablet TAKE ONE TAB LET BY MOUTH TWO TIMES A DAY completed ciprofloxa ru 500 MG Oral Tablet [facility] ([facility]) gabapentin 800 mg tabs completed gabapentin 800 mg tabs [facility] ([facility]) Amoxicillin 500 MG Oral Capsule amoxicillin 500 mg cap gonzalo amoxicillin 500 mg capsule completed amoxicillin 50 0 MG Oral Capsule [facility] ([facility]) pantoprazole 20 MG Delayed Release Oral Tablet [Protonix] Protonix 20 mg tablet,delayed release Take 1 tablet every day by oral route. Protonix 20 mg tablet,delayed release Take 1 tablet every day by oral route. 1 completed pantoprazole 20 MG Delayed Relea se Oral Tablet [Protonix] [facility] ([facility]) gabapentin 600 mg tabs completed gabapentin 600 mg tabs [facility] ([facility]) Metoclopramide 5 MG Oral Tablet metoclopramide 5 mg ta blet metoclopramide 5 mg tablet completed metoclopramide 5 MG Oral Tablet [facility] ([facility]) Metoclopramide 5 MG Oral Tablet metoclopramide 5 mg ta blet metoclopramide 5 mg tablet completed metoclopramide 5 MG Oral Tablet [facility] ([facility]) ranitidine hydrochloride 150 mg tabs completed ranitidine hydrochloride 150 mg tabs [facility] ([facility]) Acetaminophen 325 MG / Hydrocodone Rosmery trate 5 MG Oral Tablet hydrocodone 5 mg- acetaminophen 325 mg tablet hydrocodone 5 mg-acetaminophen 325 mg tablet completed acetaminophen 325 MG / hydrocodone bitartrate 5 MG Oral Tablet [facility] [facility] tizanidine 4 MG Oral Tablet tizanidine 4 mg tablet TAKE ONE TABLET BY MOUTH THREE TIMES A DAY NEEDED tizanidine 4 mg tablet TAKE ONE TABLET B Y MOUTH THREE TIMES A DAY NEEDED completed tizanidine 4 MG Oral Tablet [facility] ([facility]) Metoclopramide 5 MG Oral Tablet metoclopramide 5 mg ta blet metoclopramide 5 mg tablet completed metoclopramide 5 MG Oral Tablet [facility] ([facility]) gabapentin 600 MG Oral Tablet gabapentin 600 mg tablet gabap entin 600 mg tablet completed gabapentin 600 MG Oral Tablet [facility] ([facility]) Famotidine 40 MG Oral Tablet famotidine 40 mg tablet famotidine 40 mg tablet completed famotidine 40 MG Oral Tablet [facility] ([facility]) gabapentin 600 mg tabs completed gabapentin 600 mg tabs [facility] ([facility]) ranitidine hydrochloride 150 mg tabs completed ranitidine hydrochloride 150 mg tabs [facility] ([facility]) Amoxicillin 500 MG Oral Capsule amoxicillin 500 mg cap gonzalo amoxicillin 500 mg capsule completed amoxicillin 50 0 MG Oral Capsule [facility] ([facility]) Acetaminophen 325 MG / Oxycodone Hydroch loride 5 MG Oral Tablet oxycodone- acetaminophen 5 mg-325 mg tablet oxycodone-acetaminophen 5 mg-325 mg tablet completed acetaminop hen 325 MG / oxycodone hydrochloride 5 MG Oral Tablet [facility] ([facility]) Amoxicillin 500 MG Oral Capsule amoxicillin 500 mg cap gonzalo amoxicillin 500 mg capsule completed amoxicillin 50 0 MG Oral Capsule [facility] ([facility]) ranitidine hydrochloride 150 mg tabs completed ranitidine hydrochloride 150 mg tabs [facility] ([facility]) gabapentin 400 mg caps completed gabapentin 400 mg caps [facility] ([facility]) gabapentin 800 mg tabs completed gabapentin 800 mg tabs [facility] ([facility]) sennosides, SHELTER 8.6 MG Oral Tablet [Senna-Time] senna 8.6 mg tablet senna 8.6 mg tablet completed sennosi shawn, SHELTER 8.6 MG Oral Tablet [Senna-Time] [facility] ([facility]) pantoprazole 20 MG Delayed Release Oral Tablet [Protonix] Protonix 20 mg tablet,delayed release Take 1 tablet every day by oral route. Protonix 20 mg tablet,delayed release Take 1 tablet every day by oral route. 1 completed pantoprazole 20 MG Delayed Relea se Oral Tablet [Protonix] [facility] ([facility]) famotidine 40 mg tabs completed famotidine 40 mg tabs [facility] ([facility]) Famotidine 40 MG Oral Tablet famotidine 40 mg tablet famotidine 40 mg tablet completed famotidine 40 MG Oral Tablet [facility] ([facility]) Ciprofloxacin 500 MG Oral Tablet ciprofl oxacin 500 mg tablet TAKE ONE TABLET BY MOUTH TWO TIMES A DAY ciprofloxacin 500 mg tablet TAKE ONE TAB LET BY MOUTH TWO TIMES A DAY completed ciprofloxa ru 500 MG Oral Tablet [facility] ([facility]) gabapentin 600 mg tabs completed gabapentin 600 mg tabs [facility] ([facility]) pantoprazole 20 MG Delayed Release Oral Tablet [Protonix] Protonix 20 mg tablet,delayed release Take 1 tablet every day by oral route. Protonix 20 mg tablet,delayed release Take 1 tablet every day by oral route. 1 completed pantoprazole 20 MG Delayed Relea se Oral Tablet [Protonix] [facility] ([facility]) gabapentin 800 mg tabs completed gabapentin 800 mg tabs [facility] ([facility]) ondansetron odt 4 mg tbdp compl eted ondansetron odt 4 mg tbdp [facility] ([facility]) ranitidine hydrochloride 150 mg tabs completed ranitidine hydrochloride 150 mg tabs [facility] ([facility]) pantoprazole 20 MG Delayed Release Oral Tablet [Protonix] Protonix 20 mg tablet,delayed release Take 1 tablet every day by oral route. Protonix 20 mg tablet,delayed release Take 1 tablet every day by oral route. 1 completed pantoprazole 20 MG Delayed Relea se Oral Tablet [Protonix] [facility] ([facility]) gabapentin 600 MG Oral Tablet gabapentin 600 mg tablet gabap entin 600 mg tablet completed gabapentin 600 MG Oral Tablet [facility]) gabapentin 800 mg tabs completed gabapentin 800 mg tabs [facility]) pantoprazole sodium 40 mg tbec completed pantoprazole sodium 40 mg tbec [facility] ([facility]) pantoprazole sodium 40 mg tbec completed pantoprazole sodium 40 mg tbec [facility] ([facility]) Baclofen 10 MG Oral Tablet baclofen 10 m g tablet TAKE ONE TABLET BY MOUTH TWICE A DAY NEEDED baclofen 10 mg tablet TAKE ONE TABLET BY MOUTH TWICE A DAY NEEDED completed baclofen 10 MG Oral Tablet [facility] ([facility]) pantoprazole 20 MG Delayed Release Oral Tablet [Protonix] Protonix 20 mg tablet,delayed release Take 1 tablet every day by oral route. Protonix 20 mg tablet,delayed release Take 1 tablet every day by oral route. 1 completed pantoprazole 20 MG Delayed Relea se Oral Tablet [Protonix] [facility] ([facility]) Metronidazole 500 MG Oral Tablet metroni dazole 500 mg tablet TAKE ONE TABLET BY MOUTH EVERY 8 HOURS metronidazole 500 mg tablet TAKE ONE TAB LET BY MOUTH EVERY 8 HOURS completed metronidazole 5 00 MG Oral Tablet [facility] ([facility]) pantoprazole 20 MG Delayed Release Oral Tablet [Protonix] Protonix 20 mg tablet,delayed release Take 1 tablet every day by oral route. Protonix 20 mg tablet,delayed release Take 1 tablet every day by oral route. 1 completed pantoprazole 20 MG Delayed Relea se Oral Tablet [Protonix] [facility] ([facility]) pantoprazole sodium 40 mg tbec completed pantoprazole sodium 40 mg tbec [facility] ([facility]) cefdinir 300 MG Oral Capsule cefdinir 300 mg capsule cefdinir 30 0 mg capsule completed cefdinir 300 M G Oral Capsule [facility] ([facility]) Ciprofloxacin 500 MG Oral Tablet ciprofl oxacin 500 mg tablet TAKE ONE TABLET BY MOUTH TWO TIMES A DAY ciprofloxacin 500 mg tablet TAKE ONE TAB LET BY MOUTH TWO TIMES A DAY completed ciprofloxa ru 500 MG Oral Tablet [facility] ([facility]) Promethazine Hydrochloride 25 MG Oral Tablet promethaz ine 25 mg tablet promethazine 25 mg tablet completed promethazine hydrochloride 25 MG Oral Tablet [facility] ([facility]) ranitidine hydrochloride 150 mg tabs completed ranitidine hydrochloride 150 mg tabs [facility] ([facility]) Famotidine 20 MG Oral Tablet famotidine 20 mg tablet famotidine 20 mg tablet completed famotidine 20 MG Oral Tablet [facility] ([facility]) pantoprazole 20 MG Delayed Release Oral Tablet [Protonix] Protonix 20 mg tablet,delayed release Take 1 tablet every day by oral route. Protonix 20 mg tablet,delayed release Take 1 tablet every day by oral route. 1 completed pantoprazole 20 MG Delayed Relea se Oral Tablet [Protonix] [facility] ([facility]) famotidine 40 mg tabs completed famotidine 40 mg tabs [facility] ([facility]) gabapentin 800 mg tabs completed gabapentin 800 mg tabs [facility] ([facility]) pantoprazole 20 MG Delayed Release Oral Tablet [Protonix] Protonix 20 mg tablet,delayed release Take 1 tablet every day by oral route. Protonix 20 mg tablet,delayed release Take 1 tablet every day by oral route. 1 completed pantoprazole 20 MG Delayed Relea se Oral Tablet [Protonix] [facility] ([facility]) Metronidazole 500 MG Oral Tablet metroni dazole 500 mg tablet TAKE ONE TABLET BY MOUTH EVERY 8 HOURS metronidazole 500 mg tablet TAKE ONE TAB LET BY MOUTH EVERY 8 HOURS completed metronidazole 5 00 MG Oral Tablet [facility] ([facility]) gabapentin 600 mg tabs completed gabapentin 600 mg tabs [facility] ([facility]) gabapentin 400 mg caps completed gabapentin 400 mg caps [facility] ([facility]) tizanidine 4 MG Oral Tablet tizanidine 4 mg tablet TAKE ONE TABLET BY MOUTH THREE TIMES A DAY NEEDED tizanidine 4 mg tablet TAKE ONE TABLET B Y MOUTH THREE TIMES A DAY NEEDED completed tizanidine 4 MG Oral Tablet [facility] ([facility]) pantoprazole sodium 40 mg tbec completed pantoprazole sodium 40 mg tbec [facility] ([facility]) 24 HR Nicotine 0.583 MG/HR Transdermal P atch nicotine 14 mg/24 hr daily transdermal patch APPLY 1 PATCH TO SKIN ONCE DAILY nicotine 14 mg/24 hr daily transdermal patch APPLY 1 PATCH TO SKIN ONCE DAILY completed 24 HR nicotine 0.583 MG/HR Transdermal System [facility] ([facility]) gabapentin 400 mg caps completed gabapentin 400 mg caps [facility] ([facility]) famotidine 40 mg tabs completed famotidine 40 mg tabs [facility] ([facility]) ranitidine hydrochloride 150 mg tabs completed ranitidine hydrochloride 150 mg tabs [facility] ([facility]) Famotidine 40 MG Oral Tablet famotidine 40 mg tablet famotidine 40 mg tablet completed famotidine 40 MG Oral Tablet [facility] ([facility]) gabapentin 600 mg tabs completed gabapentin 600 mg tabs [facility] ([facility]) gabapentin 600 mg tabs completed gabapentin 600 mg tabs [facility] ([facility]) gabapentin 600 MG Oral Tablet gabapentin 600 mg tablet gabap entin 600 mg tablet completed gabapentin 600 MG Oral Tablet [facility] ([facility]) gabapentin 600 MG Oral Tablet gabapentin 600 mg tablet gabap entin 600 mg tablet completed gabapentin 600 MG Oral Tablet [facility] ([facility]) pantoprazole sodium 40 mg tbec completed pantoprazole sodium 40 mg tbec [facility] ([facility]) Ondansetron 4 MG Oral Tablet ondansetron HCl 4 mg tabl et ondansetron HCl 4 mg tablet completed ondansetron 4 M G Oral Tablet [facility] ([facility]) tizanidine 4 MG Oral Tablet tizanidine 4 mg tablet TAKE ONE TABLET BY MOUTH THREE TIMES A DAY NEEDED tizanidine 4 mg tablet TAKE ONE TABLET B Y MOUTH THREE TIMES A DAY NEEDED completed tizanidine 4 MG Oral Tablet [facility] ([facility]) ondansetron odt 4 mg tbdp compl eted ondansetron odt 4 mg tbdp [facility] ([facility]) pantoprazole sodium 40 mg tbec completed pantoprazole sodium 40 mg tbec [facility] ([facility]) gabapentin 400 mg caps completed gabapentin 400 mg caps [facility] ([facility]) Ondansetron 4 MG Oral Tablet ondansetron HCl 4 mg tabl et ondansetron HCl 4 mg tablet completed ondansetron 4 M G Oral Tablet [facility] ([facility]) gabapentin 800 mg tabs completed gabapentin 800 mg tabs [facility] ([facility]) pantoprazole sodium 40 mg tbec completed pantoprazole sodium 40 mg tbec [facility] ([facility]) Famotidine 20 MG Oral Tablet famotidine 20 mg tablet famotidine 20 mg tablet completed famotidine 20 MG Oral Tablet [facility] ([facility]) famotidine 40 mg tabs completed famotidine 40 mg tabs [facility] ([facility]) gabapentin 600 MG Oral Tablet gabapentin 600 mg tablet gabap entin 600 mg tablet completed gabapentin 600 MG Oral Tablet [facility] ([facility]) Acetaminophen 325 MG / Oxycodone Hydroch loride 5 MG Oral Tablet oxycodone- acetaminophen 5 mg-325 mg tablet oxycodone-acetaminophen 5 mg-325 mg tablet completed acetaminop hen 325 MG / oxycodone hydrochloride 5 MG Oral Tablet [facility] ([facility]) tizanidine 4 MG Oral Tablet tizanidine 4 mg tablet TAKE ONE TABLET BY MOUTH THREE TIMES A DAY NEEDED tizanidine 4 mg tablet TAKE ONE TABLET B Y MOUTH THREE TIMES A DAY NEEDED completed tizanidine 4 MG Oral Tablet [facility] ([facility]) pantoprazole 20 MG Delayed Release Oral Tablet [Protonix] Protonix 20 mg tablet,delayed release Take 1 tablet every day by oral route. Protonix 20 mg tablet,delayed release Take 1 tablet every day by oral route. 1 completed pantoprazole 20 MG Delayed Relea se Oral Tablet [Protonix] [facility] ([facility]) pantoprazole 20 MG Delayed Release Oral Tablet [Protonix] Protonix 20 mg tablet,delayed release Take 1 tablet every day by oral route. Protonix 20 mg tablet,delayed release Take 1 tablet every day by oral route. 1 completed pantoprazole 20 MG Delayed Relea se Oral Tablet [Protonix] [facility] ([facility]) Metronidazole 500 MG Oral Tablet metronidazole 500 mg tablet metronidazole 500 mg tablet completed metronidazol e 500 MG Oral Tablet [facility] ([facility]) pantoprazole 20 MG Delayed Release Oral Tablet [Protonix] Protonix 20 mg tablet,delayed release Take 1 tablet every day by oral route. Protonix 20 mg tablet,delayed release Take 1 tablet every day by oral route. 1 completed pantoprazole 20 MG Delayed Relea se Oral Tablet [Protonix] [facility] ([facility]) Ondansetron 4 MG Oral Tablet ondansetron HCl 4 mg tabl et ondansetron HCl 4 mg tablet completed ondansetron 4 M G Oral Tablet [facility] ([facility]) ondansetron odt 4 mg tbdp compl eted ondansetron odt 4 mg tbdp [facility] ([facility]) gabapentin 400 mg caps completed gabapentin 400 mg caps [facility] ([facility]) pantoprazole sodium 40 mg tbec completed pantoprazole sodium 40 mg tbec [facility] ([facility]) Acetaminophen 325 MG / Hydrocodone Rosmery trate 5 MG Oral Tablet hydrocodone 5 mg- acetaminophen 325 mg tablet hydrocodone 5 mg-acetaminophen 325 mg tablet completed acetaminophen 325 MG / hydrocodone bitartrate 5 MG Oral Tablet [facility] ([facility]) Promethazine Hydrochloride 25 MG Oral Tablet promethaz ine 25 mg tablet promethazine 25 mg tablet completed promethazine hydrochloride 25 MG Oral Tablet [facility] ([facility]) pantoprazole sodium 40 mg tbec completed pantoprazole sodium 40 mg tbec [facility] ([facility]) ranitidine hydrochloride 150 mg tabs completed ranitidine hydrochloride 150 mg tabs [facility] ([facility]) pantoprazole sodium 40 mg tbec completed pantoprazole sodium 40 mg tbec [facility] ([facility]) gabapentin 800 mg tabs completed gabapentin 800 mg tabs [facility] ([facility]) Ciprofloxacin 500 MG Oral Tablet ciprofloxacin 500 mg tablet ciprofloxacin 500 mg tablet completed ciprofloxaci n 500 MG Oral Tablet [facility] ([facility]) Acetaminophen 325 MG / Hydrocodone Rosmery trate 5 MG Oral Tablet hydrocodone 5 mg- acetaminophen 325 mg tablet hydrocodone 5 mg-acetaminophen 325 mg tablet completed acetaminophen 325 MG / hydrocodone bitartrate 5 MG Oral Tablet [facility] ([facility]) Ondansetron 4 MG Oral Tablet ondansetron HCl 4 mg tabl et ondansetron HCl 4 mg tablet completed ondansetron 4 M G Oral Tablet [facility] ([facility]) gabapentin 400 mg caps completed gabapentin 400 mg caps [facility] ([facility]) pantoprazole sodium 40 mg tbec completed pantoprazole sodium 40 mg tbec [facility] ([facility]) ondansetron odt 4 mg tbdp compl eted ondansetron odt 4 mg tbdp [facility] ([facility]) famotidine 40 mg tabs completed famotidine 40 mg tabs [facility] ([facility]) ondansetron odt 4 mg tbdp compl eted ondansetron odt 4 mg tbdp [facility] ([facility]) ondansetron odt 4 mg tbdp compl eted ondansetron odt 4 mg tbdp [facility] ([facility]) gabapentin 400 mg caps completed gabapentin 400 mg caps [facility] ([facility]) ondansetron odt 4 mg tbdp compl eted ondansetron odt 4 mg tbdp [facility] ([facility]) tizanidine 4 MG Oral Tablet tizanidine 4 mg tablet TAKE ONE TABLET BY MOUTH THREE TIMES A DAY NEEDED tizanidine 4 mg tablet TAKE ONE TABLET B Y MOUTH THREE TIMES A DAY NEEDED completed tizanidine 4 MG Oral Tablet [facility] ([facility]) chlorhexidine gluconate 1.2 MG/ML Mouthw macario chlorhexidine gluconate 0.12 % mouthwash chlorhexidine gluconate 0.12 % mouthwash completed chlorhexidine gluconate 1.2 MG/ML Mouthwash [facility] ([facility]) Acetaminophen 325 MG / Oxycodone Hydroch loride 5 MG Oral Tablet oxycodone- acetaminophen 5 mg-325 mg tablet oxycodone-acetaminophen 5 mg-325 mg tablet completed acetaminop hen 325 MG / oxycodone hydrochloride 5 MG Oral Tablet [facility] ([facility]) gabapentin 800 mg tabs completed gabapentin 800 mg tabs [facility] ([facility]) gabapentin 600 MG Oral Tablet gabapentin 600 mg tablet gabap entin 600 mg tablet completed gabapentin 600 MG Oral Tablet [facility] ([facility]) Ciprofloxacin 500 MG Oral Tablet ciprofl oxacin 500 mg tablet TAKE ONE TABLET BY MOUTH TWO TIMES A DAY ciprofloxacin 500 mg tablet TAKE ONE TAB LET BY MOUTH TWO TIMES A DAY completed ciprofloxa ru 500 MG Oral Tablet [facility] ([facility]) Ondansetron 4 MG Oral Tablet ondansetron HCl 4 mg tabl et ondansetron HCl 4 mg tablet completed ondansetron 4 M G Oral Tablet [facility] ([facility]) gabapentin 600 mg tabs completed gabapentin 600 mg tabs [facility] ([facility]) gabapentin 600 mg tabs completed gabapentin 600 mg tabs [facility] ([facility]) metoclopramide hydrochloride 10 mg tabs completed metoclopramide hydrochloride 10 mg tabs [facility] ([facility]) Ondansetron 4 MG Oral Tablet ondansetron HCl 4 mg tabl et ondansetron HCl 4 mg tablet completed ondansetron 4 M G Oral Tablet [facility] ([facility]) gabapentin 600 mg tabs completed gabapentin 600 mg tabs [facility] ([facility]) Amoxicillin 500 MG Oral Capsule amoxicillin 500 mg cap gonzalo amoxicillin 500 mg capsule completed amoxicillin 50 0 MG Oral Capsule [facility] ([facility]) Ondansetron 4 MG Oral Tablet ondansetron HCl 4 mg tabl et ondansetron HCl 4 mg tablet completed ondansetron 4 M G Oral Tablet [facility] ([facility]) Metoclopramide 5 MG Oral Tablet metoclopramide 5 mg ta blet metoclopramide 5 mg tablet completed metoclopramide 5 MG Oral Tablet [facility] ([facility]) famotidine 40 mg tabs completed famotidine 40 mg tabs [facility] ([facility]) pantoprazole sodium 40 mg tbec completed pantoprazole sodium 40 mg tbec [facility] ([facility]) Famotidine 20 MG Oral Tablet famotidine 20 mg tablet famotidine 20 mg tablet completed famotidine 20 MG Oral Tablet [facility] ([facility]) tizanidine 4 MG Oral Tablet tizanidine 4 mg tablet TAKE ONE TABLET BY MOUTH THREE TIMES A DAY NEEDED tizanidine 4 mg tablet TAKE ONE TABLET B Y MOUTH THREE TIMES A DAY NEEDED completed tizanidine 4 MG Oral Tablet [facility] ([facility]) gabapentin 600 MG Oral Tablet gabapentin 600 mg tablet gabap entin 600 mg tablet completed gabapentin 600 MG Oral Tablet [facility] ([facility]) gabapentin 600 MG Oral Tablet gabapentin 600 mg tablet gabap entin 600 mg tablet completed gabapentin 600 MG Oral Tablet [facility] ([facility]) Ciprofloxacin 500 MG Oral Tablet ciprofloxacin 500 mg tablet ciprofloxacin 500 mg tablet completed ciprofloxaci n 500 MG Oral Tablet [facility] ([facility]) metoclopramide hydrochloride 10 mg tabs completed metoclopramide hydrochloride 10 mg tabs [facility] ([facility]) gabapentin 600 mg tabs completed gabapentin 600 mg tabs [facility] ([facility]) Ondansetron 4 MG Oral Tablet ondansetron HCl 4 mg tabl et ondansetron HCl 4 mg tablet completed ondansetron 4 M G Oral Tablet [facility] ([facility]) pantoprazole 20 MG Delayed Release Oral Tablet [Protonix] Protonix 20 mg tablet,delayed release Take 1 tablet every day by oral route. Protonix 20 mg tablet,delayed release Take 1 tablet every day by oral route. 1 completed pantoprazole 20 MG Delayed Relea se Oral Tablet [Protonix] [facility] ([facility]) chlorhexidine gluconate 1.2 MG/ML Mouthw macario chlorhexidine gluconate 0.12 % mouthwash chlorhexidine gluconate 0.12 % mouthwash completed chlorhexidine gluconate 1.2 MG/ML Mouthwash [facility] ([facility]) Ciprofloxacin 500 MG Oral Tablet ciprofl oxacin 500 mg tablet TAKE ONE TABLET BY MOUTH TWO TIMES A DAY ciprofloxacin 500 mg tablet TAKE ONE TAB LET BY MOUTH TWO TIMES A DAY completed ciprofloxa ru 500 MG Oral Tablet [facility] ([facility]) gabapentin 600 MG Oral Tablet gabapentin 600 mg tablet gabap entin 600 mg tablet completed gabapentin 600 MG Oral Tablet [facility] ([facility]) Acetaminophen 325 MG / Hydrocodone Rosmery trate 5 MG Oral Tablet hydrocodone 5 mg- acetaminophen 325 mg tablet hydrocodone 5 mg-acetaminophen 325 mg tablet completed acetaminophen 325 MG / hydrocodone bitartrate 5 MG Oral Tablet [facility] ([facility]) gabapentin 400 mg caps completed gabapentin 400 mg caps [facility] ([facility]) gabapentin 800 mg tabs completed gabapentin 800 mg tabs [facility] ([facility]) gabapentin 800 mg tabs completed gabapentin 800 mg tabs [facility] ([facility]) ondansetron odt 4 mg tbdp compl eted ondansetron odt 4 mg tbdp [facility] ([facility]) cefdinir 300 MG Oral Capsule cefdinir 300 mg capsule cefdinir 30 0 mg capsule completed cefdinir 300 M G Oral Capsule [facility] ([facility]) Ondansetron 4 MG Oral Tablet ondansetron HCl 4 mg tabl et ondansetron HCl 4 mg tablet completed ondansetron 4 M G Oral Tablet [facility] ([facility]) tizanidine 4 MG Oral Tablet tizanidine 4 mg tablet TAKE ONE TABLET BY MOUTH THREE TIMES A DAY NEEDED tizanidine 4 mg tablet TAKE ONE TABLET B Y MOUTH THREE TIMES A DAY NEEDED completed tizanidine 4 MG Oral Tablet [facility] ([facility]) ranitidine hydrochloride 150 mg tabs completed ranitidine hydrochloride 150 mg tabs [facility] ([facility]) cefdinir 300 MG Oral Capsule cefdinir 300 mg capsule cefdinir 30 0 mg capsule completed cefdinir 300 M G Oral Capsule [facility] ([facility]) tizanidine 4 MG Oral Tablet tizanidine 4 mg tablet TAKE ONE TABLET BY MOUTH THREE TIMES A DAY NEEDED tizanidine 4 mg tablet TAKE ONE TABLET B Y MOUTH THREE TIMES A DAY NEEDED completed tizanidine 4 MG Oral Tablet [facility] ([facility]) gabapentin 600 MG Oral Tablet gabapentin 600 mg tablet gabap entin 600 mg tablet completed gabapentin 600 MG Oral Tablet [facility] ([facility]) metoclopramide hydrochloride 10 mg tabs completed metoclopramide hydrochloride 10 mg tabs [facility] ([facility]) pantoprazole 20 MG Delayed Release Oral Tablet [Protonix] Protonix 20 mg tablet,delayed release Take 1 tablet every day by oral route. Protonix 20 mg tablet,delayed release Take 1 tablet every day by oral route. 1 completed pantoprazole 20 MG Delayed Relea se Oral Tablet [Protonix] [facility] ([facility]) Ciprofloxacin 500 MG Oral Tablet ciprofloxacin 500 mg tablet ciprofloxacin 500 mg tablet completed ciprofloxaci n 500 MG Oral Tablet [facility] ([facility]) gabapentin 600 mg tabs completed gabapentin 600 mg tabs [facility]) gabapentin 600 mg tabs completed gabapentin 600 mg tabs [facility]) metoclopramide hydrochloride 10 mg tabs completed metoclopramide hydrochloride 10 mg tabs [facility] ([facility]) gabapentin 400 mg caps completed gabapentin 400 mg caps [facility] ([facility]) pantoprazole sodium 40 mg tbec completed pantoprazole sodium 40 mg tbec [facility] ([facility]) Metoclopramide 5 MG Oral Tablet metoclopramide 5 mg ta blet metoclopramide 5 mg tablet completed metoclopramide 5 MG Oral Tablet [facility] ([facility]) ondansetron odt 4 mg tbdp compl eted ondansetron odt 4 mg tbdp [facility]) gabapentin 600 MG Oral Tablet gabapentin 600 mg tablet gabap entin 600 mg tablet completed gabapentin 600 MG Oral Tablet [facility] ([facility]) gabapentin 400 mg caps completed gabapentin 400 mg caps [facility] ([facility]) gabapentin 800 mg tabs completed gabapentin 800 mg tabs [facility]) famotidine 40 mg tabs completed famotidine 40 mg tabs [facility] ([facility]) Famotidine 20 MG Oral Tablet famotidine 20 mg tablet famotidine 20 mg tablet completed famotidine 20 MG Oral Tablet [facility] ([facility]) Baclofen 10 MG Oral Tablet baclofen 10 m g tablet TAKE ONE TABLET BY MOUTH TWICE A DAY NEEDED baclofen 10 mg tablet TAKE ONE TABLET BY MOUTH TWICE A DAY NEEDED completed baclofen 10 MG Oral Tablet [facility]) cefdinir 300 MG Oral Capsule cefdinir 300 mg capsule cefdinir 30 0 mg capsule completed cefdinir 300 M G Oral Capsule [facility] ([facility]) pantoprazole 20 MG Delayed Release Oral Tablet [Protonix] Protonix 20 mg tablet,delayed release Take 1 tablet every day by oral route. Protonix 20 mg tablet,delayed release Take 1 tablet every day by oral route. 1 completed pantoprazole 20 MG Delayed Relea se Oral Tablet [Protonix] [facility] ([facility]) gabapentin 400 mg caps completed gabapentin 400 mg caps [facility]) metoclopramide hydrochloride 10 mg tabs completed metoclopramide hydrochloride 10 mg tabs [facility]) gabapentin 600 mg tabs completed gabapentin 600 mg tabs [facility] ([facility]) cefdinir 300 MG Oral Capsule cefdinir 300 mg capsule cefdinir 30 0 mg capsule completed cefdinir 300 M G Oral Capsule [facility] ([facility]) Metronidazole 500 MG Oral Tablet metroni dazole 500 mg tablet TAKE ONE TABLET BY MOUTH EVERY 8 HOURS metronidazole 500 mg tablet TAKE ONE TAB LET BY MOUTH EVERY 8 HOURS completed metronidazole 5 00 MG Oral Tablet [facility] ([facility]) gabapentin 400 mg caps completed gabapentin 400 mg caps [facility] ([facility]) Ciprofloxacin 500 MG Oral Tablet ciprofloxacin 500 mg tablet ciprofloxacin 500 mg tablet completed ciprofloxaci n 500 MG Oral Tablet [facility] ([facility]) famotidine 40 mg tabs completed famotidine 40 mg tabs [facility] ([facility]) Famotidine 40 MG Oral Tablet famotidine 40 mg tablet famotidine 40 mg tablet completed famotidine 40 MG Oral Tablet [facility] ([facility]) Baclofen 10 MG Oral Tablet baclofen 10 m g tablet TAKE ONE TABLET BY MOUTH TWICE A DAY NEEDED baclofen 10 mg tablet TAKE ONE TABLET BY MOUTH TWICE A DAY NEEDED completed baclofen 10 MG Oral Tablet [facility] ([facility]) gabapentin 800 mg tabs completed gabapentin 800 mg tabs [facility] ([facility]) ondansetron odt 4 mg tbdp compl eted ondansetron odt 4 mg tbdp [facility] ([facility]) gabapentin 600 mg tabs completed gabapentin 600 mg tabs [facility] ([facility]) ondansetron odt 4 mg tbdp compl eted ondansetron odt 4 mg tbdp [facility] ([facility]) Baclofen 10 MG Oral Tablet baclofen 10 m g tablet TAKE ONE TABLET BY MOUTH TWICE A DAY NEEDED baclofen 10 mg tablet TAKE ONE TABLET BY MOUTH TWICE A DAY NEEDED completed baclofen 10 MG Oral Tablet [facility] ([facility]) 24 HR Nicotine 0.583 MG/HR Transdermal P atc nicotine 14 mg/24 hr daily transdermal patch APPLY 1 PATCH TO SKIN ONCE DAILY nicotine 14 mg/24 hr daily transdermal patch APPLY 1 PATCH TO SKIN ONCE DAILY completed 24 HR nicotine 0.583 MG/HR Transdermal System [facility] ([facility]) famotidine 40 mg tabs completed famotidine 40 mg tabs [facility] ([facility]) gabapentin 600 mg tabs completed gabapentin 600 mg tabs [facility] ([facility]) chlorhexidine gluconate 1.2 MG/ML Mouthw macario chlorhexidine gluconate 0.12 % mouthwash chlorhexidine gluconate 0.12 % mouthwash completed chlorhexidine gluconate 1.2 MG/ML Mouthwash [facility] ([facility]) chlorhexidine gluconate 1.2 MG/ML Mouthw macario chlorhexidine gluconate 0.12 % mouthwash chlorhexidine gluconate 0.12 % mouthwash completed chlorhexidine gluconate 1.2 MG/ML Mouthwash [facility] ([facility]) 24 HR Nicotine 0.583 MG/HR Transdermal P atch nicotine 14 mg/24 hr daily transdermal patch APPLY 1 PATCH TO SKIN ONCE DAILY nicotine 14 mg/24 hr daily transdermal patch APPLY 1 PATCH TO SKIN ONCE DAILY completed 24 HR nicotine 0.583 MG/HR Transdermal System [facility] ([facility]) metoclopramide hydrochloride 10 mg tabs completed metoclopramide hydrochloride 10 mg tabs [facility] ([facility]) 24 HR Nicotine 0.583 MG/HR Transdermal P atch nicotine 14 mg/24 hr daily transdermal patch APPLY 1 PATCH TO SKIN ONCE DAILY nicotine 14 mg/24 hr daily transdermal patch APPLY 1 PATCH TO SKIN ONCE DAILY completed 24 HR nicotine 0.583 MG/HR Transdermal System [facility] ([facility]) Metronidazole 500 MG Oral Tablet metroni dazole 500 mg tablet TAKE ONE TABLET BY MOUTH EVERY 8 HOURS metronidazole 500 mg tablet TAKE ONE TAB LET BY MOUTH EVERY 8 HOURS completed metronidazole 5 00 MG Oral Tablet [facility] ([facility]) Famotidine 40 MG Oral Tablet famotidine 40 mg tablet famotidine 40 mg tablet completed famotidine 40 MG Oral Tablet [facility] ([facility]) Amoxicillin 500 MG Oral Capsule amoxicillin 500 mg cap gonzalo amoxicillin 500 mg capsule completed amoxicillin 50 0 MG Oral Capsule [facility] ([facility]) gabapentin 600 mg tabs completed gabapentin 600 mg tabs [facility] ([facility]) pantoprazole 20 MG Delayed Release Oral Tablet [Protonix] Protonix 20 mg tablet,delayed release Take 1 tablet every day by oral route. Protonix 20 mg tablet,delayed release Take 1 tablet every day by oral route. 1 completed pantoprazole 20 MG Delayed Relea se Oral Tablet [Protonix] [facility] ([facility]) ranitidine hydrochloride 150 mg tabs completed ranitidine hydrochloride 150 mg tabs [facility] ([facility]) Famotidine 20 MG Oral Tablet famotidine 20 mg tablet famotidine 20 mg tablet completed famotidine 20 MG Oral Tablet [facility] ([facility]) ranitidine hydrochloride 150 mg tabs completed ranitidine hydrochloride 150 mg tabs [facility] ([facility]) Promethazine Hydrochloride 25 MG Oral Tablet promethaz ine 25 mg tablet promethazine 25 mg tablet completed promethazine hydrochloride 25 MG Oral Tablet [facility] ([facility]) ranitidine hydrochloride 150 mg tabs completed ranitidine hydrochloride 150 mg tabs [facility] ([facility]) ondansetron odt 4 mg tbdp compl eted ondansetron odt 4 mg tbdp [facility] ([facility]) famotidine 40 mg tabs completed famotidine 40 mg tabs [facility] ([facility]) gabapentin 400 mg caps completed gabapentin 400 mg caps [facility] ([facility]) chlorhexidine gluconate 1.2 MG/ML Mouthw macario chlorhexidine gluconate 0.12 % mouthwash chlorhexidine gluconate 0.12 % mouthwash completed chlorhexidine gluconate 1.2 MG/ML Mouthwash [facility] ([facility]) famotidine 40 mg tabs completed famotidine 40 mg tabs [facility] ([facility]) Famotidine 20 MG Oral Tablet famotidine 20 mg tablet famotidine 20 mg tablet completed famotidine 20 MG Oral Tablet [facility] ([facility]) metoclopramide hydrochloride 10 mg tabs completed metoclopramide hydrochloride 10 mg tabs [facility] ([facility]) Famotidine 20 MG Oral Tablet famotidine 20 mg tablet famotidine 20 mg tablet completed famotidine 20 MG Oral Tablet [facility] ([facility]) gabapentin 600 mg tabs completed gabapentin 600 mg tabs [facility] ([facility]) Famotidine 20 MG Oral Tablet famotidine 20 mg tablet famotidine 20 mg tablet completed famotidine 20 MG Oral Tablet [facility] ([facility]) Acetaminophen 325 MG / Hydrocodone Rosmery trate 5 MG Oral Tablet hydrocodone 5 mg- acetaminophen 325 mg tablet hydrocodone 5 mg-acetaminophen 325 mg tablet completed acetaminophen 325 MG / hydrocodone bitartrate 5 MG Oral Tablet [facility] ([facility]) Metoclopramide 10 MG Oral Tablet metoclo pramide 10 mg tablet TAKE ONE TABLET BY MOUTH BEFORE MEALS THREE TIMES A DAY AND AT BEDTIME metoclopramide 10 mg tablet TAKE ONE TABLET BY MOUTH BEFORE MEALS THREE TIMES A DAY AND AT BEDTIME completed metoclopramide 10 MG Oral Tablet [facility] ([facility]) ranitidine hydrochloride 150 mg tabs completed ranitidine hydrochloride 150 mg tabs [facility]) gabapentin 800 mg tabs completed gabapentin 800 mg tabs [facility]) ondansetron odt 4 mg tbdp compl eted ondansetron odt 4 mg tbdp [facility] ([facility]) 24 HR Nicotine 0.583 MG/HR Transdermal P atch nicotine 14 mg/24 hr daily transdermal patch APPLY 1 PATCH TO SKIN ONCE DAILY nicotine 14 mg/24 hr daily transdermal patch APPLY 1 PATCH TO SKIN ONCE DAILY completed 24 HR nicotine 0.583 MG/HR Transdermal System [facility]) gabapentin 800 mg tabs completed gabapentin 800 mg tabs [facility] ([facility]) gabapentin 800 mg tabs completed gabapentin 800 mg tabs [facility] ([facility]) gabapentin 400 mg caps completed gabapentin 400 mg caps [facility]) gabapentin 400 mg caps completed gabapentin 400 mg caps [facility] ([facility]) Baclofen 10 MG Oral Tablet baclofen 10 m g tablet TAKE ONE TABLET BY MOUTH TWICE A DAY NEEDED baclofen 10 mg tablet TAKE ONE TABLET BY MOUTH TWICE A DAY NEEDED completed baclofen 10 MG Oral Tablet [facility] ([facility]) gabapentin 600 MG Oral Tablet gabapentin 600 mg tablet gabap entin 600 mg tablet completed gabapentin 600 MG Oral Tablet [facility] ([facility]) Metronidazole 500 MG Oral Tablet metronidazole 500 mg tablet metronidazole 500 mg tablet completed metronidazol e 500 MG Oral Tablet [facility] ([facility]) sennosides, SHELTER 8.6 MG Oral Tablet [Senna-Time] senna 8.6 mg tablet senna 8.6 mg tablet completed sennosi shawn, SHELTER 8.6 MG Oral Tablet [Senna-Time] [facility] ([facility]) Famotidine 40 MG Oral Tablet famotidine 40 mg tablet famotidine 40 mg tablet completed famotidine 40 MG Oral Tablet [facility] ([facility]) pantoprazole 20 MG Delayed Release Oral Tablet [Protonix] Protonix 20 mg tablet,delayed release Take 1 tablet every day by oral route. Protonix 20 mg tablet,delayed release Take 1 tablet every day by oral route. 1 completed pantoprazole 20 MG Delayed Relea se Oral Tablet [Protonix] [facility] ([facility]) tizanidine 4 MG Oral Tablet tizanidine 4 mg tablet TAKE ONE TABLET BY MOUTH THREE TIMES A DAY NEEDED tizanidine 4 mg tablet TAKE ONE TABLET B Y MOUTH THREE TIMES A DAY NEEDED completed tizanidine 4 MG Oral Tablet [facility] ([facility]) Ondansetron 4 MG Oral Tablet ondansetron HCl 4 mg tabl et ondansetron HCl 4 mg tablet completed ondansetron 4 M G Oral Tablet [facility] ([facility]) pantoprazole sodium 40 mg tbec completed pantoprazole sodium 40 mg tbec [facility]) metoclopramide hydrochloride 10 mg tabs completed metoclopramide hydrochloride 10 mg tabs [facility] ([facility]) metoclopramide hydrochloride 10 mg tabs completed metoclopramide hydrochloride 10 mg tabs [facility] ([facility]) metoclopramide hydrochloride 10 mg tabs completed metoclopramide hydrochloride 10 mg tabs [facility] ([facility]) gabapentin 800 mg tabs completed gabapentin 800 mg tabs [facility] ([facility]) ranitidine hydrochloride 150 mg tabs completed ranitidine hydrochloride 150 mg tabs [facility] ([facility]) Ondansetron 4 MG Oral Tablet ondansetron HCl 4 mg tabl et ondansetron HCl 4 mg tablet completed ondansetron 4 M G Oral Tablet [facility] ([facility]) gabapentin 800 mg tabs completed gabapentin 800 mg tabs [facility] ([facility]) gabapentin 800 mg tabs completed gabapentin 800 mg tabs [facility] ([facility]) Amoxicillin 500 MG Oral Capsule amoxicillin 500 mg cap gonzalo amoxicillin 500 mg capsule completed amoxicillin 50 0 MG Oral Capsule [facility] ([facility]) pantoprazole 20 MG Delayed Release Oral Tablet [Protonix] Protonix 20 mg tablet,delayed release Take 1 tablet every day by oral route. Protonix 20 mg tablet,delayed release Take 1 tablet every day by oral route. 1 completed pantoprazole 20 MG Delayed Relea se Oral Tablet [Protonix] [facility] ([facility]) pantoprazole sodium 40 mg tbec completed pantoprazole sodium 40 mg tbec [facility] ([facility]) Metoclopramide 10 MG Oral Tablet metoclo pramide 10 mg tablet TAKE ONE TABLET BY MOUTH BEFORE MEALS THREE TIMES A DAY AND AT BEDTIME metoclopramide 10 mg tablet TAKE ONE TABLET BY MOUTH BEFORE MEALS THREE TIMES A DAY AND AT BEDTIME completed metoclopramide 10 MG Oral Tablet [facility] ([facility]) ranitidine hydrochloride 150 mg tabs completed ranitidine hydrochloride 150 mg tabs [facility] ([facility]) Insurance Providers Payer name Policy type / Coverage type Policy ID Covered green party ID Covered green party's relationship to luna Policy Luna Plan Information [employer] [id number] SP [id number] MEDICARE [id number] SP [id number] A [id number] A [place] [id number] Self [id number] [facility] [id number] [facility] [place] Medicaid [id number] Self [id number] [facility]LY [facility] COMMUNITY PLAN [facility] [id number] SP [id number] FORMERLY [facility] COMMUNITY PLAN [facility] [id number] SP [id number] MEDICAID [id number] SP [id number] [facility] [id number] SP [id number] [facility] [id number] [facility]-Commercial [id number] [facility]-Medicaid [id number] [facility]-Medicaid [id number] ANSI-Medicaid [id number] ANSI-Commercial [id number] ANSI-Medicaid [id number] ANSI-Commercial [id number] ANSI-Medicaid [id number] ANSI-Medicaid [id number] ANSI-Medicaid [id number] ANSI-Commercial [id number] ANSI-Medicaid [id number] SELF PAY ONLY [id number] SP [id number] [facility]LY [facility] COMMUNITY PLAN [facility] [id number] SP [id number] ANSI-Medicaid [id number] ANSI-Medicaid [id number] ANSI-Commercial [id number] [facility] [id number] ANSI-Medicaid [id number] ANSI-Medicaid [id number] ANSI-Commercial [id number] ANSI-Medicaid [id number] ANSI-Medicaid [id number] ANSI-Commercial [id number] ANSI-Commercial [id number] ANSI-Medicaid [id number] ANSI-Medicaid [id number] ANSI-Medicaid [id number] ANSI-Medicaid [id number] ANSI-Commercial [id number] ANSI-Medicaid [id number] ANSI-Medicaid [id number] ANSI-Commercial [id number] ANSI-Commercial [id number] ANSI-Medicaid [id number] ANSI-Medicaid [id number] ANS-Medicaid [id number] [facility]-Medicaid [id number] ANSI-Commercial [id number] ANS-Medicaid [id number] ANSI-Commercial [id number] ANS-Medicaid [id number] ANS-Medicaid [id number] ANSI-Medicaid [id number] ANSI-Commercial [id number] ANSI-Medicaid [id number] ANSI-Medicaid [id number] ANSI-Commercial [id number] ANSI-Medicaid [id number] ANSI-Medicaid [id number] ANSI-Commercial [id number] ANSI-Medicaid [id number] ANSI-Commercial [id number] ANSI-Medicaid [id number] ANSI-Medicaid [id number] ANSI-Medicaid [id number] ANSI-Commercial [id number] ANSI-Medicaid [id number] ANSI-Commercial [id number] [facility] [id number] [facility] [id number] ANSI-Commercial [id number] ANSI-Medicaid [id number] ANSI-Medicaid [id number] ANSI-Commercial [id number] ANSI-Medicaid [id number] ANSI-Commercial [id number] ANSI-Medicaid [id number] ANSI-Medicaid [id number] ANSI-Medicaid [id number] ANSI-Medicaid [id number] ANSI-Commercial [id number] ANSI-Medicaid [id number] ANSI-Commercial [id number] ANSI-Medicaid [id number] ANSI-Commercial [id number] ANSI-Medicaid [id number] ANSI-Medicaid [id number] ANSI-Medicaid [id number] ANSI-Medicaid [id number] ANSI-Commercial [id number] ANSI-Medicaid [id number] ANSI-Medicaid [id number] ANSI-Commercial [id number] SELF PAY UNAVAILABLE SP UNAVAILA BLE [facility] [id number] SP [id number] AXEL [id number] SP [id number] [facility] [id number] SP [id number] [facility] Medig[employer] Part B [id number] Self [id number] [facility] [id number] SP [id number] SELF PAY ONLY UNAVAILABLE SP UNAV AILABLE [facility] O [id number] S [id number] SELF PAY ONLY SELF PAY ONLY [id number] Self SELF PAY ONLY SELF PAY SELF PAY [id number] [place] f [place]F [place] HEALTHCARE(MCAID) O [id number] S [id number] P UNAVAILABLE UNAVAILA BLE [id number] [place] O [id number] S [id number] UNHC COMMUNITY PLAN MCDO [id number] SP [id number] EMEDNY [id number] SP [id number] [facility]) O [id number] S [id number] MEDICAID [id number] SP [id number] PRIVATE PAY NAV JANE SR 18 NAV JANE SR UNHC COMMUNITY PLAN XIX [id number] 18 [id number] MEDICAID M [id number] S [id number] [facility] [id number] SP [id number] ANSI-Medicaid [id number] Problems, Conditions, and Diagnoses Code Display Name Description Problem Type Effective Dates Data Source(s) 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 Diagnosis 02/23/2020 10:03:45 AM [facility] K21.9 Gastro-esophageal reflux disease without esophagitis Gastro-esophageal reflux disease without esophagitis Diagnosis 02/23/2020 10:03:45 AM [facility] R13.10 [id number] Dysphagia, unspecified type Problem 06/17/19 12:00:00 AM EST eCW1 ([facility]) K21.9 [id number] Gastroesophageal ref lux disease, unspecified whether esophagitis present Problem 06/17/2020 12:00:00 AM EST eCW1 ([facility]) G89.29 [id number] Other chronic pain Problem 03/28/2020 12:00: 00 AM EST eCW1 ([facility]) Surgeries/Procedures Procedure Description Date Indications Data Source(s) MRI, lumbar spine, w/o contrast 04/26/2020 12:00:00 AM EST [facility] ([facility]) Immunization: Flublok Quadrivalent (18 years & older) 0.5mL IM (Influenza) 03/28/2020 12:00:00 AM EST eCW1 ([facility]) Results ID Date Data Source [id number] 03/03/2021 12:00:00 AM EDT [facility] Name Value Range Interpretation Code Description Data Elvira rce(s) Supporting Document(s) SARS-CoV-2 NEGATIVE [facility] This lab was ordered by [facility]-COVID19 and reported by [employer]. ID Date Data Source [id number] 03/03/2021 12:00:00 AM EDT [facility] ([facility]) Name Value Range Interpretation Code Description Data Elvira rce(s) Supporting Document(s) SARS-CoV-2 (COVID-19) RNA [Presence] in Respiratory specimen by LEONARDO with probe detection negative negative Sars-cov-2 [facility] ([facility]) ID Date Data Source [id number] 03/03/2021 12:00:00 AM EDT [facility] ([facility]) Name Value Range Interpretation Code Description Data Elvira rce(s) Supporting Document(s) ID Date Data Source SYPHILIS ANTIBODY (RPR SCREEN) 02/22/2021 12:00:00 AM EDT eC W1 ([facility]) Name Value Range Interpretation Code Description Data Elvira rce(s) Supporting Document(s) NONREACTIVE NONREACTIVE SYPHILIS eCW1 ([facility]) ID Date Data Source [id number] 02/22/2021 12:00:00 AM EDT eCW1 ([facility]) Name Value Range Interpretation Code Description Data Elvira rce(s) Supporting Document(s) 123 73-393 LIPASE eCW1 ([facility] ID Date Data Source [id number] 02/22/2021 12:00:00 AM EDT eCW1 ([facility]) Name Value Range Interpretation Code Description Data Elvira rce(s) Supporting Document(s) HIV 1and2 ANTIBODY SCREEN eCW1 ([facility]) ID Date Data Source Comprehensive Metabolic Profile (CMP) 02/22/2021 12:00:00 AM EDT eCW1 ([facility]) Name Value Range Interpretation Code Description Data Elvira rce(s) Supporting Document(s) 89 70-100 GLUCOSE, FASTING eCW1 ([facility]) > 60.0 >56 GLOMERULAR FILTRATION RATE eCW 1 ([facility]) 0.92 0.70-1.30 CREATININE FOR GFR eCW1 ([facility]) 15 7-18 BLOOD UREA NITROGEN eCW1 (Critical access hospital) 4.2 3.5-5.1 POTASSIUM SERUM eCW1 ([facility]) 107 98-107 CHLORIDE LEVEL eCW1 ([facility]) 140 136-145 SODIUM LEVEL eCW1 ([facility]) 30 21-32 CARBON DIOXIDE LEVEL eCW1 ([facility]) 8.8 8.5-10.1 CALCIUM LEVEL eCW1 ([facility]) 21 7-37 AST/SGOT eCW1 ([facility] 17 12-78 ALT/SGPT eCW1 ([facility]) 0.4 0.2-1.0 BILIRUBIN,TOTAL eCW1 ([facility]) 88 45-117 ALKALINE PHOSPHATASE eCW1 ([facility]) 6.9 6.4-8.2 TOTAL PROTEIN eCW1 ([facility]) 1.1 ALBUMIN/GLOBULIN RATIO eCW1 ([facility]) 3.6 3.2-5.2 ALBUMIN eCW1 ([facility]) ID Date Data Source CHLAMYDIA & GC DNA AMPLIFICAT 02/22/2021 12:00:00 AM EDT eCW 1 ([facility]) Name Value Range Interpretation Code Description Data Elvira rce(s) Supporting Document(s) Chlamydia trachomatis rRNA [Presence] in Unspecified specimen by Probe and target amplification method NEGATIVE NEGATIVE CHLAMYDIA DNA AMPLIFICATION eCW1 ([facility]) ID Date Data Source CBC with Differential 02/22/2021 12:00:00 AM EDT eCW1 ([facility]) Name Value Range Interpretation Code Description Data Elvira rce(s) Supporting Document(s) 8.4 4.0-10.0 WHITE BLOOD COUNT eCW1 ([facility]) 5.02 4.30-6.10 RED BLOOD COUNT eCW1 ([facility]) 15.2 13.5-17.5 HEMOGLOBIN eCW1 ([facility]) 46.4 42.0-52.0 HEMATOCRIT eCW1 ([facility]) 92.4 80.0-96.0 MEAN CORPUSCULAR VOLUME e CW1 ([facility]) 32.8 32.0-36.5 MEAN CORPUSCULAR HGB CONC eCW1 ([facility]) 13.2 11.5-14.5 RED CELL DISTRIBUTION WID TH eCW1 ([facility]) 183 150-450 PLATELET COUNT, AUTOMATED eCW1 ([facility]) 30.3 27.0-33.0 MEAN CORPUSCULAR HEMOGLOB IN eCW1 ([facility]) 7.3 2.0-8.0 MONO % eCW1 ([facility] 22.2 24.0-44.0 LYMPH % eCW1 ([facility]) 68.5 36.0-66.0 NEUTROPHILS % eCW1 ([facility]) 0.6 0.0-1.0 BASO % eCW1 ([facility]) 5.8 1.5-8.5 NEUTROPHILS # eCW1 ([facility]) 1.9 1.5-5.0 LYMPH # eCW1 ([facility] 1.0 0.0-3.0 EOS % eCW1 ([facility]) 0.1 0.0-0.2 BASO # eCW1 ([facility]) 0.6 0.0-0.8 MONO # eCW1 ([facility]) 0.1 0.0-0.5 EOS # eCW1 [facility]) ID Date Data Source [id number] 02/22/2021 12:00:00 AM EDT eCW1 ([facility]) Name Value Range Interpretation Code Description Data Elvira rce(s) Supporting Document(s) 61 25-115 AMYLASE eCW1 ([facility]) ID Date Data Source [id number] 01/13/2021 12:00:00 AM EDT [facility] ([facility]) Name Value Range Interpretation Code Description Data Elvira rce(s) Supporting Document(s) SARS-CoV-2 (COVID-19) RNA [Presence] in Respiratory specimen by LEONARDO with probe detection negative negative Sars-cov-2 [facility] ([facility]) ID Date Data Source [id number] 01/13/2021 12:00:00 AM EDT [facility] ([facility]) Name Value Range Interpretation Code Description Data Elvira rce(s) Supporting Document(s) ID Date Data Source [id number] 01/13/2021 12:00:00 AM EDT [facility] ([facility]) Name Value Range Interpretation Code Description Data Elvira rce(s) Supporting Document(s) SARS-CoV-2 (COVID-19) RNA [Presence] in Respiratory specimen by LEONARDO with probe detection negative negative Sars-cov-2 [facility] ([facility]) ID Date Data Source [id number] 01/13/2021 12:00:00 AM EDT [facility] ([facility]) Name Value Range Interpretation Code Description Data Elvira rce(s) Supporting Document(s) ID Date Data Source [id number] 01/13/2021 12:00:00 AM EDT [place] ([facility]) Name Value Range Interpretation Code Description Data Elvira rce(s) Supporting Document(s) SARS-CoV-2 (COVID-19) RNA [Presence] in Respiratory specimen by LEONARDO with probe detection negative negative Sars-cov-2 [facility] ([facility]) ID Date Data Source [id number] 01/13/2021 12:00:00 AM EDT [facility] ([facility]) Name Value Range Interpretation Code Description Data Elvira rce(s) Supporting Document(s) ID Date Data Source [id number] 01/13/2021 12:00:00 AM EDT [facility] Name Value Range Interpretation Code Description Data Elvira rce(s) Supporting Document(s) SARS-CoV-2 NEGATIVE [facility] This lab was ordered by [facility]-COVID19 and reported by [employer]. ID Date Data Source [id number] 01/13/2021 12:00:00 AM EDT [facility] ([facility]) Name Value Range Interpretation Code Description Data Elvira rce(s) Supporting Document(s) SARS-CoV-2 (COVID-19) RNA [Presence] in Respiratory specimen by LEONARDO with probe detection negative negative Sars-cov-2 [facility] ([facility]) ID Date Data Source [id number] 01/13/2021 12:00:00 AM EDT [facility] ([facility]) Name Value Range Interpretation Code Description Data Elvira rce(s) Supporting Document(s) ID Date Data Source [id number] 10/03/2020 12:00:00 AM EDT [facility] ([facility]) Name Value Range Interpretation Code Description Data Elvira rce(s) Supporting Document(s) SARS-CoV-2 (COVID-19) RNA [Presence] in Respiratory specimen by LEONARDO with probe detection negative negative Sars-cov-2 [facility] ([facility]) ID Date Data Source [id number] 10/03[facility]2020 [facility] Name Value Range Interpretation Code Description Data Elvira rce(s) Supporting Document(s) ID Date Data Source [id number] 10/03/2020 12:00:00 AM EDT [facility]) Name Value Range Interpretation Code Description Data Elvira rce(s) Supporting Document(s) SARS-CoV-2 (COVID-19) RNA [Presence] in Respiratory specimen by LEONARDO with probe detection negative negative Sars-cov-2 [facility]) ID Date Data Source [id number] 10/03/2020 12:00:00 AM EDT [facility]) Name Value Range Interpretation Code Description Data Elvira rce(s) Supporting Document(s) ID Date Data Source [id number] 10/03/2020 12:00:00 AM EDT [facility]) Name Value Range Interpretation Code Description Data Elvira rce(s) Supporting Document(s) SARS-CoV-2 (COVID-19) RNA [Presence] in Respiratory specimen by LEONARDO with probe detection negative negative Sars-cov-2 [facility]) ID Date Data Source [id number] 10/03/2020 12:00:00 AM EDT [facility]) Name Value Range Interpretation Code Description Data Elvira rce(s) Supporting Document(s) ID Date Data Source [id number] 10/03/2020 12:00:00 AM EDT [place] ([facility]) Name Value Range Interpretation Code Description Data Elvira rce(s) Supporting Document(s) ID Date Data Source [id number] 10/03/2020 12:00:00 AM EDT [facility]) Name Value Range Interpretation Code Description Data Elvira rce(s) Supporting Document(s) SARS-CoV-2 (COVID-19) RNA [Presence] in Respiratory specimen by LEONARDO with probe detection negative negative Sars-cov-2 [facility] ([facility]) ID Date Data Source [id number] 10/03/2020 12:00:00 AM EDT [place] ([facility]) Name Value Range Interpretation Code Description Data Elvira rce(s) Supporting Document(s) ID Date Data Source [id number] 10/03/2020 12:00:00 AM EDT [facility] ([facility]) Name Value Range Interpretation Code Description Data Elvira rce(s) Supporting Document(s) SARS-CoV-2 (COVID-19) RNA [Presence] in Respiratory specimen by LEONARDO with probe detection negative negative Sars-cov-2 [facility] ([facility]) ID Date Data Source [id number] 10/03/2020 12:00:00 AM EDT [facility] ([facility]) Name Value Range Interpretation Code Description Data Elvira rce(s) Supporting Document(s) ID Date Data Source [id number] 10/03/2020 12:00:00 AM EDT [place] ([facility]) Name Value Range Interpretation Code Description Data Elvira rce(s) Supporting Document(s) SARS-CoV-2 (COVID-19) RNA [Presence] in Respiratory specimen by LEONARDO with probe detection negative negative Sars-cov-2 [facility] ([facility]) ID Date Data Source [id number] 10/03/2020 12:00:00 AM EDT [place] ([facility]) Name Value Range Interpretation Code Description Data Elvira rce(s) Supporting Document(s) ID Date Data Source [id number] 10/03/2020 12:00:00 AM EDT [facility] ([facility]) Name Value Range Interpretation Code Description Data Elvira rce(s) Supporting Document(s) SARS-CoV-2 (COVID-19) RNA [Presence] in Respiratory specimen by LEONARDO with probe detection negative negative Sars-cov-2 [facility] ([facility]) ID Date Data Source [id number] 10/03/2020 12:00:00 AM EDT [facility] ([facility]) Name Value Range Interpretation Code Description Data Elvira rce(s) Supporting Document(s) ID Date Data Source [id number] 10/03/2020 12:00:00 AM EDT [place] ([facility]) Name Value Range Interpretation Code Description Data Elvira rce(s) Supporting Document(s) SARS-CoV-2 (COVID-19) RNA [Presence] in Respiratory specimen by LEONARDO with probe detection negative negative Sars-cov-2 [facility]) ID Date Data Source [id number] 10/03/2020 12:00:00 AM EDT [facility] Name Value Range Interpretation Code Description Data Elvira rce(s) Supporting Document(s) SARS-CoV-2 NEGATIVE [facility] This lab was ordered by [facility]-COVID19 and reported by [employer]. ID Date Data Source [id number] 09/26/2020 12:00:00 AM EDT [place] ([facility]) Name Value Range Interpretation Code Description Data Elvira rce(s) Supporting Document(s) SARS-CoV-2 (COVID-19) RNA [Presence] in Respiratory specimen by LEONARDO with probe detection negative negative Sars-cov-2 [facility] ([facility]) ID Date Data Source [id number] 09/26/2020 12:00:00 AM EDT [facility] ([facility]) Name Value Range Interpretation Code Description Data Elvira rce(s) Supporting Document(s) ID Date Data Source [id number] 09/26/2020 12:00:00 AM EDT [place] ([facility]) Name Value Range Interpretation Code Description Data Elvira rce(s) Supporting Document(s) SARS-CoV-2 (COVID-19) RNA [Presence] in Respiratory specimen by LEONARDO with probe detection negative negative Sars-cov-2 [facility] ([facility]) ID Date Data Source [id number] 09/26/2020 12:00:00 AM EDT [place] ([facility]) Name Value Range Interpretation Code Description Data Elvira rce(s) Supporting Document(s) ID Date Data Source [id number] 09/26/2020 12:00:00 AM EDT [place] ([facility]) Name Value Range Interpretation Code Description Data Elvira rce(s) Supporting Document(s) SARS-CoV-2 (COVID-19) RNA [Presence] in Respiratory specimen by LEONARDO with probe detection negative negative Sars-cov-2 [facility] ([facility]) ID Date Data Source [id number] 09/26/2020 12:00:00 AM EDT [place] ([facility]) Name Value Range Interpretation Code Description Data Elvira rce(s) Supporting Document(s) ID Date Data Source [id number] 09/26/2020 12:00:00 AM EDT [place] ([facility]) Name Value Range Interpretation Code Description Data Elvira rce(s) Supporting Document(s) SARS-CoV-2 (COVID-19) RNA [Presence] in Respiratory specimen by LEONARDO with probe detection negative negative Sars-cov-2 [facility] ([facility]) ID Date Data Source [id number] 09/26/2020 12:00:00 AM EDT [facility] ([facility]) Name Value Range Interpretation Code Description Data Elvira rce(s) Supporting Document(s) ID Date Data Source [id number] 09/26/2020 12:00:00 AM EDT [place] ([facility]) Name Value Range Interpretation Code Description Data Elvira rce(s) Supporting Document(s) SARS-CoV-2 (COVID-19) RNA [Presence] in Respiratory specimen by LEONARDO with probe detection negative negative Sars-cov-2 [facility] ([facility]) ID Date Data Source [id number] 09/26/2020 12:00:00 AM EDT [facility] ([facility]) Name Value Range Interpretation Code Description Data Elvira rce(s) Supporting Document(s) ID Date Data Source [id number] 09/26/2020 12:00:00 AM EDT [facility] Name Value Range Interpretation Code Description Data Elvira rce(s) Supporting Document(s) SARS-CoV-2 NEGATIVE [facility] This lab was ordered by [facility]-COVID19 and reported by [employer]. ID Date Data Source [id number] 09/26/2020 12:00:00 AM EDT [facility] ([facility]) Name Value Range Interpretation Code Description Data Elvira rce(s) Supporting Document(s) SARS-CoV-2 (COVID-19) RNA [Presence] in Respiratory specimen by LEONARDO with probe detection negative negative Sars-cov-2 [facility] ([facility]) ID Date Data Source [id number] 09/26/2020 12:00:00 AM EDT [place] ([facility]) Name Value Range Interpretation Code Description Data Elvira rce(s) Supporting Document(s) ID Date Data Source [id number] 09/26/2020 12:00:00 AM EDT [place] ([facility]) Name Value Range Interpretation Code Description Data Elvira rce(s) Supporting Document(s) SARS-CoV-2 (COVID-19) RNA [Presence] in Respiratory specimen by LEONARDO with probe detection negative negative Sars-cov-2 [facility] ([facility]) ID Date Data Source [id number] 09/26/2020 12:00:00 AM EDT [place] ([facility]) Name Value Range Interpretation Code Description Data Elvira rce(s) Supporting Document(s) ID Date Data Source [id number] 09/26/2020 12:00:00 AM EDT [place] ([facility]) Name Value Range Interpretation Code Description Data Elvira rce(s) Supporting Document(s) SARS-CoV-2 (COVID-19) RNA [Presence] in Respiratory specimen by LEONARDO with probe detection negative negative Sars-cov-2 [facility] ([facility]) ID Date Data Source [id number] 09/26/2020 12:00:00 AM EDT [place] ([facility]) Name Value Range Interpretation Code Description Data Elvira rce(s) Supporting Document(s) ID Date Data Source [id number] 09/26/2020 12:00:00 AM EDT [facility]) Name Value Range Interpretation Code Description Data Elvira rce(s) Supporting Document(s) SARS-CoV-2 (COVID-19) RNA [Presence] in Respiratory specimen by LEONARDO with probe detection negative negative Sars-cov-2 [place] ([facility]) ID Date Data Source [id number] 09/26/2020 12:00:00 AM EDT [facility]) Name Value Range Interpretation Code Description Data Elvira rce(s) Supporting Document(s) ID Date Data Source [id number] 09/26/2020 12:00:00 AM EDT [facility]) Name Value Range Interpretation Code Description Data Elvira rce(s) Supporting Document(s) SARS-CoV-2 (COVID-19) RNA [Presence] in Respiratory specimen by LEONARDO with probe detection negative negative Sars-cov-2 [place] ([facility]) ID Date Data Source [id number] 09/26/2020 12:00:00 AM EDT [place] ([employer] [facility]) Name Value Range Interpretation Code Description Data Elvira rce(s) Supporting Document(s) ID Date Data Source [id number] 09/16/2020 02:57:05 PM EDT [facility] Name Value Range Interpretation Code Description Data Elvira rce(s) Supporting Document(s) Progress Note [facility] OEJRIr1fGeOHTdIo20/XKHzeTSCno5MjGCvbZJy4EJyvXPNfK9XoLQG5eN6eZGC1KCeZLaJnBhXkWGW8 lbm WiQhyXSzIgTBQuOwcBUhJdJSpxNfltfJZiHK4SbSQ3NBHyI13jQJKcKZIcR2GoLDGpLha+Yy9SJHUksT YaBL5RMlqJ0Z2bf2jZUr8poM/SKkCYJUYE7EGdVbHmIZ/fxU5i+056Ea3w60QbpL50czo8327teOonct C/mAhalQjtRXF3jtV7o/Pk0trI5b+/urjSmfBR4e/5 9pqh9sGE/PlPZnGbZ+j1Jw8fp9kL4gnxrTjz++h1ro3l8VeurIJHOb1rp0cDVuSNbxKbzPNujAsbwB25 is53Z4GkOJj5AKxa/jU6uvXuJchJlaI+hx/M8Qfz/In1cm1c40K+O5/3bX+VEjHgjtl0f+CuJmAbLahl fyjnct0XocS2igF3fEgKxZ4Ekl9HxNhscXtki8kwRo y404TyeyaZNID3ys5Ba6ovQPRazFB70Lm0wjjnNo8Tq+loanbTq/Fg0r++WT8a5J5JGxSnKNwVewrflA qCa3WXCnYXkY4vGUPuZ/5uFWID3gimDsg18oXquEgbg/xep4P+IbnGQUxgsO3B/3KvLQxmR5FG+/1LpU 26DxU/mXRQ8NszNPVGwTFlPty0B4eUIhBGo1MIgESy M4kog4AYAt6psL5GY2EUKBQlzHAUxT7B66x8cjt96fEquYYLYdSBXEgA3vm/Ms+eHxw/PuUHpbpCT92g S4Lhkxvm1xUW35HsZdnOd5L66WFQ20ZUQSiW0c2gK+YxTQZlNWkmClsc1a+long term/uOhpeubTp70yK0Ck+ [file] xgQJayzUgiMeZBlR0gjOwUzstUWI3hTAAN2km90DTLnPdnHHHba4YiUxY+radiation officer+m2MS6GKAIuvJmmp9ZY [file] [id number] ID Date Data Source [id number] 09/05/2020 12:00:00 AM EDT [facility] Name Value Range Interpretation Code Description Data Elvira rce(s) Supporting Document(s) SARS-CoV-2 (COVID-19) RNA [Presence] in Respiratory specimen by LEONARDO with probe detection negative negative [facility] ID Date Data Source [id number] 09/05/2020 12:00:00 AM EDT [place] ([facility]) Name Value Range Interpretation Code Description Data Elvira rce(s) Supporting Document(s) ID Date Data Source [id number] 09/05/2020 12:00:00 AM EDT [place] ([facility]) Name Value Range Interpretation Code Description Data Elvira rce(s) Supporting Document(s) SARS-CoV-2 (COVID-19) RNA [Presence] in Respiratory specimen by LEONARDO with probe detection negative negative Sars-cov-2 [place] ([facility]) ID Date Data Source [id number] 09/05/2020 12:00:00 AM EDT [place] ([facility]) Name Value Range Interpretation Code Description Data Elvira rce(s) Supporting Document(s) ID Date Data Source [id number] 09/05/2020 12:00:00 AM EDT [place] ([facility]) Name Value Range Interpretation Code Description Data Elvira rce(s) Supporting Document(s) SARS-CoV-2 (COVID-19) RNA [Presence] in Respiratory specimen by LEONARDO with probe detection negative negative Sars-cov-2 [place] ([facility]) ID Date Data Source [id number] 09/05/2020 12:00:00 AM EDT [facility]) Name Value Range Interpretation Code Description Data Elvira rce(s) Supporting Document(s) ID Date Data Source [id number] 09/05/2020 12:00:00 AM EDT [place] ([facility] [facility]) Name Value Range Interpretation Code Description Data Elvira rce(s) Supporting Document(s) SARS-CoV-2 (COVID-19) RNA [Presence] in Respiratory specimen by LEONARDO with probe detection negative negative [facility] ID Date Data Source [id number] 09/05/2020 12:00:00 AM EDT [facility]) Name Value Range Interpretation Code Description Data Elvira rce(s) Supporting Document(s) ID Date Data Source [id number] 09/05/2020 12:00:00 AM EDT [facility]) Name Value Range Interpretation Code Description Data Elvira rce(s) Supporting Document(s) SARS-CoV-2 (COVID-19) RNA [Presence] in Respiratory specimen by LEONARDO with probe detection negative negative Sars-cov-2 [facility] ([facility]) ID Date Data Source [id number] 09/05/2020 12:00:00 AM EDT [facility] ([facility]) Name Value Range Interpretation Code Description Data Elvira rce(s) Supporting Document(s) ID Date Data Source [id number] 09/05/2020 12:00:00 AM EDT [facility] ([facility]) Name Value Range Interpretation Code Description Data Elvira rce(s) Supporting Document(s) SARS-CoV-2 (COVID-19) RNA [Presence] in Respiratory specimen by LEONARDO with probe detection negative negative Sars-cov-2 [facility] ([facility]) ID Date Data Source [id number] 09/05/2020 12:00:00 AM EDT [facility] ([facility]) Name Value Range Interpretation Code Description Data Elvira rce(s) Supporting Document(s) ID Date Data Source [id number] 09/05/2020 12:00:00 AM EDT [facility] ([facility]) Name Value Range Interpretation Code Description Data Elvira rce(s) Supporting Document(s) SARS-CoV-2 (COVID-19) RNA [Presence] in Respiratory specimen by LEONARDO with probe detection negative negative Sars-cov-2 [facility] ([facility]) ID Date Data Source [id number] 09/05/2020 12:00:00 AM EDT [facility] ([facility]) Name Value Range Interpretation Code Description Data Elvira rce(s) Supporting Document(s) ID Date Data Source [id number] 09/05/2020 12:00:00 AM EDT [facility] ([facility]) Name Value Range Interpretation Code Description Data Elvira rce(s) Supporting Document(s) SARS-CoV-2 (COVID-19) RNA [Presence] in Respiratory specimen by LEONARDO with probe detection negative negative Sars-cov-2 [facility] ([facility]) ID Date Data Source [id number] 09/05/2020 12:00:00 AM EDT [facility] ([facility]) Name Value Range Interpretation Code Description Data Elvira rce(s) Supporting Document(s) ID Date Data Source [id number] 09/05/2020 12:00:00 AM EDT [facility] Name Value Range Interpretation Code Description Data Elvira rce(s) Supporting Document(s) SARS-CoV-2 NEGATIVE [facility] This lab was ordered by [facility]-COVID19 and reported by [facility]. ID Date Data Source [id number] 09/05/2020 12:00:00 AM EDT [facility] ([facility]) Name Value Range Interpretation Code Description Data Elvira rce(s) Supporting Document(s) SARS-CoV-2 (COVID-19) RNA [Presence] in Respiratory specimen by LEONARDO with probe detection negative negative Sars-cov-2 [facility] ([facility]) ID Date Data Source [id number] 09/05/2020 12:00:00 AM EDT [facility] ([facility]) Name Value Range Interpretation Code Description Data Elvira rce(s) Supporting Document(s) ID Date Data Source [id number] 09/05/2020 12:00:00 AM EDT [facility] ([facility]) Name Value Range Interpretation Code Description Data Elivra rce(s) Supporting Document(s) SARS-CoV-2 (COVID-19) RNA [Presence] in Respiratory specimen by LEONARDO with probe detection negative negative Sars-cov-2 [facility] ([facility]) ID Date Data Source [id number] 09/05/2020 12:00:00 AM EDT [facility] ([facility]) Name Value Range Interpretation Code Description Data Elvira rce(s) Supporting Document(s) ID Date Data Source [id number] 09/05/2020 12:00:00 AM EDT [facility] ([facility]) Name Value Range Interpretation Code Description Data Elvira rce(s) Supporting Document(s) SARS-CoV-2 (COVID-19) RNA [Presence] in Respiratory specimen by LEONARDO with probe detection negative negative Sars-cov-2 [facility] ([facility]) ID Date Data Source [id number] 09/05/2020 [facility]00[facility]00 [facility] Name Value Range Interpretation Code Description Data Elvira rce(s) Supporting Document(s) ID Date Data Source [id number] 09/05/2020 12:00:00 AM EDT [facility]) Name Value Range Interpretation Code Description Data Elvira rce(s) Supporting Document(s) SARS-CoV-2 (COVID-19) RNA [Presence] in Respiratory specimen by LEONARDO with probe detection negative negative Sars-cov-2 [facility] ([facility]) ID Date Data Source [id number] 09/05/2020 12:00:00 AM EDT [facility]) Name Value Range Interpretation Code Description Data Elvira rce(s) Supporting Document(s) ID Date Data Source [id number] 09/05/2020 12:00:00 AM EDT [facility] ([facility]) Name Value Range Interpretation Code Description Data Elvira rce(s) Supporting Document(s) SARS-CoV-2 (COVID-19) RNA [Presence] in Respiratory specimen by LEONARDO with probe detection negative negative Sars-cov-2 [facility] ([facility]) ID Date Data Source [id number] 09/05/2020 12:00:00 AM EDT [facility] ([facility]) Name Value Range Interpretation Code Description Data Elvira rce(s) Supporting Document(s) ID Date Data Source [id number] 08/08/2020 12:00:00 AM EDT [facility]) Name Value Range Interpretation Code Description Data Elvira rce(s) Supporting Document(s) SARS-CoV-2 (COVID-19) RNA [Presence] in Respiratory specimen by LEONARDO with probe detection negative negative Sars-cov-2 [facility] ([facility]) ID Date Data Source [id number] 08/08/2020 12:00:00 AM EDT [facility]) Name Value Range Interpretation Code Description Data Elvira rce(s) Supporting Document(s) ID Date Data Source [id number] 08/08/2020 12:00:00 AM EDT [facility] ([facility]) Name Value Range Interpretation Code Description Data Elvira rce(s) Supporting Document(s) SARS-CoV-2 (COVID-19) RNA [Presence] in Respiratory specimen by LEONARDO with probe detection negative negative Sars-cov-2 [facility] ([facility]) ID Date Data Source [id number] 08/08/2020 12:00:00 AM EDT [facility]) Name Value Range Interpretation Code Description Data Elvira rce(s) Supporting Document(s) ID Date Data Source [id number] 08/08/2020 12:00:00 AM EDT [facility] ([facility]) Name Value Range Interpretation Code Description Data Elvira rce(s) Supporting Document(s) SARS-CoV-2 (COVID-19) RNA [Presence] in Respiratory specimen by LEONARDO with probe detection negative negative Sars-cov-2 [facility] ([facility]) ID Date Data Source [id number] 08/08/2020 12:00:00 AM EDT [facility] ([facility]) Name Value Range Interpretation Code Description Data Elvira rce(s) Supporting Document(s) ID Date Data Source [id number] 08/08/2020 12:00:00 AM EDT [facility] ([facility]) Name Value Range Interpretation Code Description Data Elvira rce(s) Supporting Document(s) SARS-CoV-2 (COVID-19) RNA [Presence] in Respiratory specimen by LEONARDO with probe detection negative negative Sars-cov-2 [facility] ([facility]) ID Date Data Source [id number] 08/08/2020 12:00:00 AM EDT [facility] ([facility]) Name Value Range Interpretation Code Description Data Elvira rce(s) Supporting Document(s) ID Date Data Source [id number] 08/08/2020 12:00:00 AM EDT [facility] ([facility]) Name Value Range Interpretation Code Description Data Elvira rce(s) Supporting Document(s) SARS-CoV-2 (COVID-19) RNA [Presence] in Respiratory specimen by LEONARDO with probe detection negative negative Sars-cov-2 [facility] ([facility]) ID Date Data Source [id number] 08/08/2020 12:00:00 AM EDT [facility] ([facility]) Name Value Range Interpretation Code Description Data Elvira rce(s) Supporting Document(s) ID Date Data Source [id number] 08/08/2020 12:00:00 AM EDT [facility] ([facility]) Name Value Range Interpretation Code Description Data Elvira rce(s) Supporting Document(s) SARS-CoV-2 (COVID-19) RNA [Presence] in Respiratory specimen by LEONARDO with probe detection negative negative Sars-cov-2 [facility] ([facility]) ID Date Data Source [id number] 08/08/2020 12:00:00 AM EDT [facility] ([facility]) Name Value Range Interpretation Code Description Data Elvira rce(s) Supporting Document(s) ID Date Data Source [id number] 08/08/2020 12:00:00 AM EDT [facility] ([facility]) Name Value Range Interpretation Code Description Data Elvira rce(s) Supporting Document(s) SARS-CoV-2 (COVID-19) RNA [Presence] in Respiratory specimen by LEONARDO with probe detection negative negative Sars-cov-2 [facility] ([facility]) ID Date Data Source [id number] 08/08/2020 12:00:00 AM EDT [facility] ([facility]) Name Value Range Interpretation Code Description Data Elvira rce(s) Supporting Document(s) ID Date Data Source [id number] 08/08/2020 12:00:00 AM EDT [facility] ([facility]) Name Value Range Interpretation Code Description Data Elvira rce(s) Supporting Document(s) SARS-CoV-2 (COVID-19) RNA [Presence] in Respiratory specimen by LEONARDO with probe detection negative negative Sars-cov-2 [facility] ([facility]) ID Date Data Source [id number] 08/08/2020 12:00:00 AM EDT [facility] ([facility]) Name Value Range Interpretation Code Description Data Elvira rce(s) Supporting Document(s) ID Date Data Source [id number] 08/08/2020 12:00:00 AM EDT [facility] ([facility]) Name Value Range Interpretation Code Description Data Elvira rce(s) Supporting Document(s) SARS-CoV-2 (COVID-19) RNA [Presence] in Respiratory specimen by LEONARDO with probe detection negative negative Sars-cov-2 [facility] ([facility]) ID Date Data Source [id number] 08/08/2020 12:00:00 AM EDT [facility] ([facility]) Name Value Range Interpretation Code Description Data Elvira rce(s) Supporting Document(s) ID Date Data Source [id number] 08/08/2020 12:00:00 AM EDT [facility] ([facility]) Name Value Range Interpretation Code Description Data Elvira rce(s) Supporting Document(s) SARS-CoV-2 (COVID-19) RNA [Presence] in Respiratory specimen by LEONARDO with probe detection negative negative Sars-cov-2 [facility] ([facility]) ID Date Data Source [id number] 08/08/2020 12:00:00 AM EDT [facility] ([facility]) Name Value Range Interpretation Code Description Data Elvira rce(s) Supporting Document(s) ID Date Data Source [id number] 08/08/2020 12:00:00 AM EDT [facility] ([facility]) Name Value Range Interpretation Code Description Data Elvira rce(s) Supporting Document(s) SARS-CoV-2 (COVID-19) RNA [Presence] in Respiratory specimen by LEONARDO with probe detection negative negative Sars-cov-2 [facility] ([facility]) ID Date Data Source [id number] 08/08/2020 12:00:00 AM EDT [facility] ([facility]) Name Value Range Interpretation Code Description Data Elvira rce(s) Supporting Document(s) ID Date Data Source [id number] 08/08/2020 12:00:00 AM EDT [facility] Name Value Range Interpretation Code Description Data Elvira rce(s) Supporting Document(s) SARS-CoV-2 NEGATIVE [facility] This lab was ordered by [facility]-COVID19 and reported by [facility]. ID Date Data Source [id number] 08/08/2020 12:00:00 AM EDT [facility] ([facility]) Name Value Range Interpretation Code Description Data Elvira rce(s) Supporting Document(s) SARS-CoV-2 (COVID-19) RNA [Presence] in Respiratory specimen by LEONARDO with probe detection negative negative Sars-cov-2 [facility] ([facility]) ID Date Data Source [id number] 08/08/2020 12:00:00 AM EDT [facility] ([facility]) Name Value Range Interpretation Code Description Data Elvira rce(s) Supporting Document(s) ID Date Data Source [id number] 08/08/2020 12:00:00 AM EDT [facility] ([facility]) Name Value Range Interpretation Code Description Data Elvira rce(s) Supporting Document(s) SARS-CoV-2 (COVID-19) RNA [Presence] in Respiratory specimen by LEONARDO with probe detection negative negative Sars-cov-2 [facility] ([facility]) ID Date Data Source [id number] 08/08/2020 12:00:00 AM EDT [facility] ([facility]) Name Value Range Interpretation Code Description Data Elvira rce(s) Supporting Document(s) ID Date Data Source [id number] 08/08/2020 12:00:00 AM EDT [facility] ([facility]) Name Value Range Interpretation Code Description Data Elvira rce(s) Supporting Document(s) SARS-CoV-2 (COVID-19) RNA [Presence] in Respiratory specimen by LEONARDO with probe detection negative negative Sars-cov-2 [facility] ([facility]) ID Date Data Source [id number] 08/08/2020 12:00:00 AM EDT [facility] ([facility]) Name Value Range Interpretation Code Description Data Elvira rce(s) Supporting Document(s) ID Date Data Source [id number] 08/08/2020 12:00:00 AM EDT [facility] ([facility]) Name Value Range Interpretation Code Description Data Elvira rce(s) Supporting Document(s) SARS-CoV-2 (COVID-19) RNA [Presence] in Respiratory specimen by LEONARDO with probe detection negative negative Sars-cov-2 [facility] ([facility]) ID Date Data Source [id number] 08/08/2020 12:00:00 AM EDT [facility] ([facility]) Name Value Range Interpretation Code Description Data Elvira rce(s) Supporting Document(s) ID Date Data Source [id number] 08/08/2020 12:00:00 AM EDT [facility] ([facility]) Name Value Range Interpretation Code Description Data Elvira rce(s) Supporting Document(s) SARS-CoV-2 (COVID-19) RNA [Presence] in Respiratory specimen by LEONARDO with probe detection negative negative Sars-cov-2 [facility] ([facility]) ID Date Data Source [id number] 08/08/2020 12:00:00 AM EDT [facility] ([facility]) Name Value Range Interpretation Code Description Data Elvira rce(s) Supporting Document(s) ID Date Data Source [id number] 06/24/2020 12:00:00 AM EST [facility] ([facility]) Name Value Range Interpretation Code Description Data Elvira rce(s) Supporting Document(s) SARS-CoV-2 (COVID-19) RNA [Presence] in Respiratory specimen by LEONARDO with probe detection negative negative Sars-cov-2 [facility] ([facility]) ID Date Data Source [id number] 06/24/2020 12:00:00 AM EST [facility] ([facility]) Name Value Range Interpretation Code Description Data Elvira rce(s) Supporting Document(s) ID Date Data Source [id number] 06/24/2020 12:00:00 AM EST [facility] ([facility]) Name Value Range Interpretation Code Description Data Elvira rce(s) Supporting Document(s) SARS-CoV-2 (COVID-19) RNA [Presence] in Respiratory specimen by LEONARDO with probe detection negative negative Sars-cov-2 [facility] ([facility]) ID Date Data Source [id number] 06/24/2020 12:00:00 AM EST [facility] ([facility]) Name Value Range Interpretation Code Description Data Elvira rce(s) Supporting Document(s) ID Date Data Source [id number] 06/24/2020 12:00:00 AM EST [facility] ([facility]) Name Value Range Interpretation Code Description Data Elvira rce(s) Supporting Document(s) SARS-CoV-2 (COVID-19) RNA [Presence] in Respiratory specimen by LEONARDO with probe detection negative negative Sars-cov-2 [facility] ([facility]) ID Date Data Source [id number] 06/24/2020 12:00:00 AM EST [facility] ([facility]) Name Value Range Interpretation Code Description Data Elvira rce(s) Supporting Document(s) ID Date Data Source [id number] 06/24/2020 12:00:00 AM EST [facility] ([facility]) Name Value Range Interpretation Code Description Data Elvira rce(s) Supporting Document(s) SARS-CoV-2 (COVID-19) RNA [Presence] in Respiratory specimen by LEONARDO with probe detection negative negative Sars-cov-2 [facility] ([facility]) ID Date Data Source [id number] 06/24/2020 12:00:00 AM EST [facility] ([facility]) Name Value Range Interpretation Code Description Data Elvira rce(s) Supporting Document(s) ID Date Data Source [id number] 06/24/2020 12:00:00 AM EST [facility] ([facility]) Name Value Range Interpretation Code Description Data Elvira rce(s) Supporting Document(s) SARS-CoV-2 (COVID-19) RNA [Presence] in Respiratory specimen by LEONARDO with probe detection negative negative Sars-cov-2 [facility] ([facility]) ID Date Data Source [id number] 06/24/2020 12:00:00 AM EST [facility] ([facility]) Name Value Range Interpretation Code Description Data Elvira rce(s) Supporting Document(s) ID Date Data Source [id number] 06/24/2020 12:00:00 AM EST [facility] ([facility]) Name Value Range Interpretation Code Description Data Elvira rce(s) Supporting Document(s) SARS-CoV-2 (COVID-19) RNA [Presence] in Respiratory specimen by LEONARDO with probe detection negative negative Sars-cov-2 [facility] ([facility]) ID Date Data Source [id number] 06/24/2020 12:00:00 AM EST [facility] ([facility]) Name Value Range Interpretation Code Description Data Elvira rce(s) Supporting Document(s) ID Date Data Source [id number] 06/24/2020 12:00:00 AM EST [facility] ([facility]) Name Value Range Interpretation Code Description Data Elvira rce(s) Supporting Document(s) SARS-CoV-2 (COVID-19) RNA [Presence] in Respiratory specimen by LEONARDO with probe detection negative negative Sars-cov-2 [facility] ([facility]) ID Date Data Source [id number] 06/24/2020 12:00:00 AM EST [facility] ([facility]) Name Value Range Interpretation Code Description Data Elvira rce(s) Supporting Document(s) ID Date Data Source [id number] 06/24/2020 12:00:00 AM EST [facility] ([facility]) Name Value Range Interpretation Code Description Data Elvira rce(s) Supporting Document(s) SARS-CoV-2 (COVID-19) RNA [Presence] in Respiratory specimen by LEONARDO with probe detection negative negative Sars-cov-2 [facility] ([facility]) ID Date Data Source [id number] 06/24/2020 12:00:00 AM EST [facility] ([facility]) Name Value Range Interpretation Code Description Data Elvira rce(s) Supporting Document(s) ID Date Data Source [id number] 06/24/2020 12:00:00 AM EST [facility] ([facility]) Name Value Range Interpretation Code Description Data Elvira rce(s) Supporting Document(s) SARS-CoV-2 (COVID-19) RNA [Presence] in Respiratory specimen by LEONARDO with probe detection negative negative Sars-cov-2 [facility] ([facility]) ID Date Data Source [id number] 06/24/2020 12:00:00 AM EST [facility] ([facility]) Name Value Range Interpretation Code Description Data Elvira rce(s) Supporting Document(s) ID Date Data Source [id number] 06/24/2020 12:00:00 AM EST [facility] ([facility]) Name Value Range Interpretation Code Description Data Elvira rce(s) Supporting Document(s) SARS-CoV-2 (COVID-19) RNA [Presence] in Respiratory specimen by LEONARDO with probe detection negative negative Sars-cov-2 [facility] ([facility]) ID Date Data Source [id number] 06/24/2020 12:00:00 AM EST [facility] ([facility]) Name Value Range Interpretation Code Description Data Elvira rce(s) Supporting Document(s) ID Date Data Source [id number] 06/24/2020 12:00:00 AM EST [facility] ([facility]) Name Value Range Interpretation Code Description Data Elvira rce(s) Supporting Document(s) SARS-CoV-2 (COVID-19) RNA [Presence] in Respiratory specimen by LEONARDO with probe detection negative negative Sars-cov-2 [facility] ([facility]) ID Date Data Source [id number] 06/24/2020 12:00:00 AM EST [facility] ([facility]) Name Value Range Interpretation Code Description Data Elvira rce(s) Supporting Document(s) ID Date Data Source [id number] 06/24/2020 12:00:00 AM EST [facility] ([facility]) Name Value Range Interpretation Code Description Data Elvira rce(s) Supporting Document(s) SARS-CoV-2 (COVID-19) RNA [Presence] in Respiratory specimen by LEONARDO with probe detection negative negative Sars-cov-2 [facility] ([facility]) ID Date Data Source [id number] 06/24/2020 12:00:00 AM EST [facility] ([facility]) Name Value Range Interpretation Code Description Data Elvira rce(s) Supporting Document(s) ID Date Data Source [id number] 06/24/2020 12:00:00 AM EST [facility] ([facility]) Name Value Range Interpretation Code Description Data Elvira rce(s) Supporting Document(s) SARS-CoV-2 (COVID-19) RNA [Presence] in Respiratory specimen by LEONARDO with probe detection negative negative Sars-cov-2 [facility] ([facility]) ID Date Data Source [id number] 06/24/2020 12:00:00 AM EST [facility] ([facility]) Name Value Range Interpretation Code Description Data Elvira rce(s) Supporting Document(s) ID Date Data Source [id number] 06/24/2020 12:00:00 AM EST [facility] ([facility]) Name Value Range Interpretation Code Description Data Elvira rce(s) Supporting Document(s) SARS-CoV-2 (COVID-19) RNA [Presence] in Respiratory specimen by LEONARDO with probe detection negative negative Sars-cov-2 [facility] ([facility]) ID Date Data Source [id number] 06/24/2020 12:00:00 AM EST [facility] ([facility]) Name Value Range Interpretation Code Description Data Elvira rce(s) Supporting Document(s) ID Date Data Source [id number] 06/24/2020 12:00:00 AM EST [facility] ([facility]) Name Value Range Interpretation Code Description Data Elvira rce(s) Supporting Document(s) SARS-CoV-2 (COVID-19) RNA [Presence] in Respiratory specimen by LEONARDO with probe detection negative negative Sars-cov-2 [facility] ([facility]) ID Date Data Source [id number] 06/24/2020 12:00:00 AM EST [facility] ([facility]) Name Value Range Interpretation Code Description Data Elvira rce(s) Supporting Document(s) ID Date Data Source [id number] 06/24/2020 12:00:00 AM EST [facility] Name Value Range Interpretation Code Description Data Elvira rce(s) Supporting Document(s) [facility] ordered by [facility]-COVID19 and reported by [facility]. ID Date Data Source [id number] 06/24/2020 12:00:00 AM EST [facility] ([facility]) Name Value Range Interpretation Code Description Data Elvira rce(s) Supporting Document(s) SARS-CoV-2 (COVID-19) RNA [Presence] in Respiratory specimen by LEONARDO with probe detection negative negative Sars-cov-2 [facility] ([facility]) ID Date Data Source [id number] 06/24/2020 12:00:00 AM EST [facility] ([facility]) Name Value Range Interpretation Code Description Data Elvira rce(s) Supporting Document(s) ID Date Data Source [id number] 06/24/2020 12:00:00 AM EST [facility] ([facility]) Name Value Range Interpretation Code Description Data Elvira rce(s) Supporting Document(s) SARS-CoV-2 (COVID-19) RNA [Presence] in Respiratory specimen by LEONARDO with probe detection negative negative Sars-cov-2 [facility] ([facility]) ID Date Data Source [id number] 06/24/2020 12:00:00 AM EST [facility] ([facility]) Name Value Range Interpretation Code Description Data Elvira rce(s) Supporting Document(s) ID Date Data Source [id number] 06/24/2020 12:00:00 AM EST [facility] ([facility]) Name Value Range Interpretation Code Description Data Elvira rce(s) Supporting Document(s) SARS-CoV-2 (COVID-19) RNA [Presence] in Respiratory specimen by LEONARDO with probe detection negative negative Sars-cov-2 [facility] ([facility]) ID Date Data Source [id number] 06/24/2020 12:00:00 AM EST [facility] ([facility]) Name Value Range Interpretation Code Description Data Elvira rce(s) Supporting Document(s) ID Date Data Source [id number] 06/24/2020 12:00:00 AM EST [facility] ([facility]) Name Value Range Interpretation Code Description Data Elvira rce(s) Supporting Document(s) SARS-CoV-2 (COVID-19) RNA [Presence] in Respiratory specimen by LEONARDO with probe detection negative negative Sars-cov-2 [facility] ([facility]) ID Date Data Source [id number] 06/24/2020 12:00:00 AM EST [facility] ([facility]) Name Value Range Interpretation Code Description Data Elvira rce(s) Supporting Document(s) ID Date Data Source [id number] 06/03/2020 12:00:00 AM EST [facility] ([facility]) Name Value Range Interpretation Code Description Data Elvira rce(s) Supporting Document(s) SARS-CoV-2 (COVID-19) RNA [Presence] in Respiratory specimen by LEONARDO with probe detection negative negative Sars-cov-2 [facility] ([facility]) ID Date Data Source [id number] 06/03/2020 12:00:00 AM EST [facility] ([facility]) Name Value Range Interpretation Code Description Data Elvira rce(s) Supporting Document(s) ID Date Data Source [id number] 06/03/2020 12:00:00 AM EST [facility] ([facility]) Name Value Range Interpretation Code Description Data Elvira rce(s) Supporting Document(s) SARS-CoV-2 (COVID-19) RNA [Presence] in Respiratory specimen by LEONARDO with probe detection negative negative Sars-cov-2 [facility] ([facility]) ID Date Data Source [id number] 06/03/2020 12:00:00 AM EST [facility] ([facility]) Name Value Range Interpretation Code Description Data Elvira rce(s) Supporting Document(s) ID Date Data Source [id number] 06/03/2020 12:00:00 AM EST [facility] ([facility]) Name Value Range Interpretation Code Description Data Elvira rce(s) Supporting Document(s) SARS-CoV-2 (COVID-19) RNA [Presence] in Respiratory specimen by LEONARDO with probe detection negative negative Sars-cov-2 [facility] ([facility]) ID Date Data Source [id number] 06/03/2020 12:00:00 AM EST [facility] ([facility]) Name Value Range Interpretation Code Description Data Elvira rce(s) Supporting Document(s) ID Date Data Source [id number] 06/03/2020 12:00:00 AM EST [facility] ([facility]) Name Value Range Interpretation Code Description Data Elvira rce(s) Supporting Document(s) SARS-CoV-2 (COVID-19) RNA [Presence] in Respiratory specimen by LEONARDO with probe detection negative negative Sars-cov-2 [facility] ([facility]) ID Date Data Source [id number] 06/03/2020 12:00:00 AM EST [facility] ([facility]) Name Value Range Interpretation Code Description Data Elvira rce(s) Supporting Document(s) ID Date Data Source [id number] 06/03/2020 12:00:00 AM EST [facility] ([facility]) Name Value Range Interpretation Code Description Data Elvira rce(s) Supporting Document(s) SARS-CoV-2 (COVID-19) RNA [Presence] in Respiratory specimen by LEONARDO with probe detection negative negative Sars-cov-2 [facility] ([facility]) ID Date Data Source [id number] 06/03/2020 12:00:00 AM EST [facility] ([facility]) Name Value Range Interpretation Code Description Data Elvira rce(s) Supporting Document(s) ID Date Data Source [id number] 06/03/2020 12:00:00 AM EST [facility] ([facility]) Name Value Range Interpretation Code Description Data Elvira rce(s) Supporting Document(s) SARS-CoV-2 (COVID-19) RNA [Presence] in Respiratory specimen by LEONARDO with probe detection negative negative Sars-cov-2 [facility] ([facility]) ID Date Data Source [id number] 06/03/2020 12:00:00 AM EST [facility] ([facility]) Name Value Range Interpretation Code Description Data Elvira rce(s) Supporting Document(s) ID Date Data Source [id number] 06/03/2020 12:00:00 AM EST [facility] ([facility]) Name Value Range Interpretation Code Description Data Elvira rce(s) Supporting Document(s) SARS-CoV-2 (COVID-19) RNA [Presence] in Respiratory specimen by LEONARDO with probe detection negative negative Sars-cov-2 [facility] ([facility]) ID Date Data Source [id number] 06/03/2020 12:00:00 AM EST [facility] ([facility]) Name Value Range Interpretation Code Description Data Elvira rce(s) Supporting Document(s) ID Date Data Source [id number] 06/03/2020 12:00:00 AM EST [facility] ([facility]) Name Value Range Interpretation Code Description Data Elvira rce(s) Supporting Document(s) SARS-CoV-2 (COVID-19) RNA [Presence] in Respiratory specimen by LEONARDO with probe detection negative negative Sars-cov-2 [facility] ([facility]) ID Date Data Source [id number] 06/03/2020 12:00:00 AM EST [facility] ([facility]) Name Value Range Interpretation Code Description Data Elvira rce(s) Supporting Document(s) ID Date Data Source [id number] 06/03/2020 12:00:00 AM EST [facility] ([facility]) Name Value Range Interpretation Code Description Data Elvira rce(s) Supporting Document(s) SARS-CoV-2 (COVID-19) RNA [Presence] in Respiratory specimen by LEONARDO with probe detection negative negative Sars-cov-2 [facility] ([facility]) ID Date Data Source [id number] 06/03/2020 12:00:00 AM EST [facility] ([facility]) Name Value Range Interpretation Code Description Data Elvira rce(s) Supporting Document(s) ID Date Data Source [id number] 06/03/2020 12:00:00 AM EST [facility] ([facility]) Name Value Range Interpretation Code Description Data Elvira rce(s) Supporting Document(s) SARS-CoV-2 (COVID-19) RNA [Presence] in Respiratory specimen by LEONARDO with probe detection negative negative Sars-cov-2 [facility] ([facility]) ID Date Data Source [id number] 06/03/2020 12:00:00 AM EST [facility] ([facility]) Name Value Range Interpretation Code Description Data Elvira rce(s) Supporting Document(s) ID Date Data Source [id number] 06/03/2020 12:00:00 AM EST [facility] ([facility]) Name Value Range Interpretation Code Description Data Elvira rce(s) Supporting Document(s) SARS-CoV-2 (COVID-19) RNA [Presence] in Respiratory specimen by LEONARDO with probe detection negative negative Sars-cov-2 [facility] ([facility]) ID Date Data Source [id number] 06/03/2020 12:00:00 AM EST [facility] ([facility]) Name Value Range Interpretation Code Description Data Elvira rce(s) Supporting Document(s) ID Date Data Source [id number] 06/03/2020 12:00:00 AM EST [facility] ([facility]) Name Value Range Interpretation Code Description Data Elvira rce(s) Supporting Document(s) SARS-CoV-2 (COVID-19) RNA [Presence] in Respiratory specimen by LEONARDO with probe detection negative negative Sars-cov-2 [facility] ([facility]) ID Date Data Source [id number] 06/03/2020 12:00:00 AM EST [facility] ([facility]) Name Value Range Interpretation Code Description Data Elvira rce(s) Supporting Document(s) ID Date Data Source [id number] 06/03/2020 12:00:00 AM EST [facility] ([facility]) Name Value Range Interpretation Code Description Data Elvira rce(s) Supporting Document(s) SARS-CoV-2 (COVID-19) RNA [Presence] in Respiratory specimen by LEONARDO with probe detection negative negative Sars-cov-2 [facility] ([facility]) ID Date Data Source [id number] 06/03/2020 12:00:00 AM EST [facility] ([facility]) Name Value Range Interpretation Code Description Data Elvira rce(s) Supporting Document(s) ID Date Data Source [id number] 06/03/2020 12:00:00 AM EST [facility] ([facility]) Name Value Range Interpretation Code Description Data Elvira rce(s) Supporting Document(s) SARS-CoV-2 (COVID-19) RNA [Presence] in Respiratory specimen by LEONARDO with probe detection negative negative Sars-cov-2 [facility] ([facility]) ID Date Data Source [id number] 06/03/2020 12:00:00 AM EST [facility] ([facility]) Name Value Range Interpretation Code Description Data Elvira rce(s) Supporting Document(s) ID Date Data Source [id number] 06/03/2020 12:00:00 AM EST [facility] ([facility]) Name Value Range Interpretation Code Description Data Elvira rce(s) Supporting Document(s) SARS-CoV-2 (COVID-19) RNA [Presence] in Respiratory specimen by LEONARDO with probe detection negative negative Sars-cov-2 [facility] ([facility]) ID Date Data Source [id number] 06/03/2020 12:00:00 AM EST [facility] ([facility]) Name Value Range Interpretation Code Description Data Elvira rce(s) Supporting Document(s) ID Date Data Source [id number] 06/03/2020 12:00:00 AM EST [facility] ([facility]) Name Value Range Interpretation Code Description Data Elvira rce(s) Supporting Document(s) SARS-CoV-2 (COVID-19) RNA [Presence] in Respiratory specimen by LEONARDO with probe detection negative negative Sars-cov-2 [facility] ([facility]) ID Date Data Source [id number] 06/03/2020 12:00:00 AM EST [facility] ([facility]) Name Value Range Interpretation Code Description Data Elvira rce(s) Supporting Document(s) ID Date Data Source [id number] 06/03/2020 12:00:00 AM EST [facility] ([facility]) Name Value Range Interpretation Code Description Data Elvira rce(s) Supporting Document(s) SARS-CoV-2 (COVID-19) RNA [Presence] in Respiratory specimen by LEONARDO with probe detection negative negative Sars-cov-2 [facility] ([facility]) ID Date Data Source [id number] 06/03/2020 12:00:00 AM EST [facility] ([facility]) Name Value Range Interpretation Code Description Data Elvira rce(s) Supporting Document(s) ID Date Data Source [id number] 06/03/2020 12:00:00 AM EST [facility] ([facility]) Name Value Range Interpretation Code Description Data Elvira rce(s) Supporting Document(s) SARS-CoV-2 (COVID-19) RNA [Presence] in Respiratory specimen by LEONARDO with probe detection negative negative Sars-cov-2 [facility] ([facility]) ID Date Data Source [id number] 06/03/2020 12:00:00 AM EST [facility] ([facility]) Name Value Range Interpretation Code Description Data Elvira rce(s) Supporting Document(s) ID Date Data Source [id number] 06/03/2020 12:00:00 AM EST [facility] Name Value Range Interpretation Code Description Data Elvira rce(s) Supporting Document(s) SARS-CoV-2 NEGATIVE [facility] This lab was ordered by [facility]-COVID19 and reported by [facility]. ID Date Data Source [id number] 06/03/2020 12:00:00 AM EST [facility] ([facility]) Name Value Range Interpretation Code Description Data Elvira rce(s) Supporting Document(s) SARS-CoV-2 (COVID-19) RNA [Presence] in Respiratory specimen by LEONARDO with probe detection negative negative Sars-cov-2 [facility] ([facility]) ID Date Data Source [id number] 06/03/2020 12:00:00 AM EST [facility] ([facility]) Name Value Range Interpretation Code Description Data Elvira rce(s) Supporting Document(s) ID Date Data Source [id number] 06/03/2020 12:00:00 AM EST [facility] ([facility]) Name Value Range Interpretation Code Description Data Levira rce(s) Supporting Document(s) SARS-CoV-2 (COVID-19) RNA [Presence] in Respiratory specimen by LEONARDO with probe detection negative negative Sars-cov-2 [facility] ([facility]) ID Date Data Source [id number] 06/03/2020 12:00:00 AM EST [facility] ([facility]) Name Value Range Interpretation Code Description Data Elvira rce(s) Supporting Document(s) ID Date Data Source [id number] 06/03/2020 12:00:00 AM EST [facility] ([facility]) Name Value Range Interpretation Code Description Data Elvira rce(s) Supporting Document(s) SARS-CoV-2 (COVID-19) RNA [Presence] in Respiratory specimen by LEONARDO with probe detection negative negative Sars-cov-2 [facility] ([facility]) ID Date Data Source [id number] 06/03/2020 12:00:00 AM EST [facility] ([facility]) Name Value Range Interpretation Code Description Data Elvira rce(s) Supporting Document(s) ID Date Data Source [id number] 06/03/2020 12:00:00 AM EST [facility] ([facility]) Name Value Range Interpretation Code Description Data Elvira rce(s) Supporting Document(s) SARS-CoV-2 (COVID-19) RNA [Presence] in Respiratory specimen by LEONARDO with probe detection negative negative Sars-cov-2 [facility] ([facility]) ID Date Data Source [id number] 06/03/2020 12:00:00 AM EST [facility] ([facility]) Name Value Range Interpretation Code Description Data Elvira rce(s) Supporting Document(s) ID Date Data Source [id number] CULTURE 05/20/2020 12:00:00 AM EST [facility] Name Value Range Interpretation Code Description Data Elvira rce(s) Supporting Document(s) [facility] ID Date Data Source [id number] 05/20/2020 12:00:00 AM EST [facility] ([facility]) Name Value Range Interpretation Code Description Data Elvira rce(s) Supporting Document(s) eC [facility] ID Date Data Source [id number] 02/24/2020 02:40:58 PM T [facility] Name Value Range Interpretation Code Description Data Elvira rce(s) Supporting Document(s) Progress Note [facility] [id number] [facility] [file] [id number] Procedure Social History Code Duration Value Status Description Data Source(s ) Smoking 02/22/2021 12:00:00 AM EDT Current Smoker completed Curre nt Smoker eCW1 ([facility]) Smoking 11/30/2020 12:00:00 AM EDT Current Smoker completed Curre nt Smoker eCW1 ([facility]) Smoking 11/30/2020 12:00:00 AM EDT Current Smoker completed Curre nt Smoker eCW1 ([facility]) Smoking 11/30/2020 12:00:00 AM EDT Current Smoker completed Curre nt Smoker eCW1 ([facility]) Smoking 11/30/2020 12:00:00 AM EDT Current Smoker completed Curre nt Smoker eCW1 ([facility]) Smoking 06/17/2020 12:00:00 AM EST Current Smoker completed Curre nt Smoker eCW1 ([facility]) Smoking 06/17/2020 12:00:00 AM EST Current Smoker completed Curre nt Smoker eCW1 ([facility]) Smoking 06/17/2020 12:00:00 AM EST Current Smoker completed Curre nt Smoker eCW1 ([facility]) Smoking 06/17/2020 12:00:00 AM EST Current Smoker completed Curre nt Smoker eCW1 ([facility]) Smoking 06/17/2020 12:00:00 AM EST Current Smoker completed Curre nt Smoker eCW1 ([facility]) Smoking 06/17/2020 12:00:00 AM EST Current Smoker completed Curre nt Smoker eCW1 ([facility]) Smoking 06/17/2020 12:00:00 AM EST Current Smoker completed Curre nt Smoker eCW1 ([facility]) Smoking 06/17/2020 12:00:00 AM EST Current Smoker completed Curre nt Smoker eCW1 ([facility]) Smoking 06/17/2020 12:00:00 AM EST Current Smoker completed Curre nt Smoker eCW1 ([facility]) Smoking 06/17/2020 12:00:00 AM EST Current Smoker completed Curre nt Smoker eCW1 ([facility]) Smoking 06/17/2020 12:00:00 AM EST Current Smoker completed Curre nt Smoker eCW1 ([facility]) Smoking 06/17/2020 12:00:00 AM EST Current Smoker completed Curre nt Smoker eCW1 ([facility]) Smoking 06/17/2020 12:00:00 AM EST Current Smoker completed Curre nt Smoker eCW1 ([facility]) Smoking 05/20/2020 12:00:00 AM EST Current Smoker completed Curre nt Smoker eCW1 ([facility]) Smoking 03/28/2020 12:00:00 AM EST Current Smoker completed Curre nt Smoker eCW1 ([facility]) Smoking 03/28/2020 12:00:00 AM EST Current Smoker completed Curre nt Smoker eCW1 ([facility]) Smoking 03/28/2020 12:00:00 AM EST Current Smoker completed Curre nt Smoker eCW1 ([facility]) Smoking 03/28/2020 12:00:00 AM EST Current Smoker completed Curre nt Smoker eCW1 ([facility]) Vital Signs ID Date Data Source UNK Name Value Range Interpretation Code Description Data Source(s) Body weight 122.2 [lb_av] 122.2 [lb_av] eCW1 ([facility]) Body weight 55.43 kg 55.43 kg eCW1 ([facility]) Body height 68 [in_i] 68 [in_i] eCW1 ([facility]) Body mass index (BMI) [Ratio] 18.58 kg/m2 18.58 kg/m2 eCW1 ([facility]) Heart rate 82 /min 82 /min eCW1 ([facility]) Respiratory rate 18 /min 18 /min eCW1 ([facility]) Body temperature 97.5 [degF] 97.5 [degF] eCW1 ( [facility]) Systolic blood pressure 118 mm[Hg] 118 mm[Hg] e CW1 ([facility]) Diastolic blood pressure 64 mm[Hg] 64 mm[Hg] eCW1 ([facility]) Diastolic blood pressure 63 mm[Hg] 63 mm[Hg] [facility] ([facility]) Body height 68 [in_i] 68 [in_i] [facility] ([facility]) Systolic blood pressure 99 mm[Hg] 99 mm[Hg] A [facility] ([facility]) Diastolic blood pressure 63 mm[Hg] 63 mm[Hg] [facility] ([facility]) Body height 68 [in_i] 68 [in_i] [facility] ([facility]) Systolic blood pressure 99 mm[Hg] 99 mm[Hg] A [facility] ([facility]) Diastolic blood pressure 63 mm[Hg] 63 mm[Hg] [facility] ([facility]) Body height 68 [in_i] 68 [in_i] [facility] ([facility]) Systolic blood pressure 99 mm[Hg] 99 mm[Hg] A [facility] ([facility]) Diastolic blood pressure 64 mm[Hg] 64 mm[Hg] [facility] ([facility]) Body height 68 [in_i] 68 [in_i] [facility] ([facility]) Systolic blood pressure 118 mm[Hg] 118 mm[Hg] A [facility] ([facility]) Diastolic blood pressure 64 mm[Hg] 64 mm[Hg] [facility] ([facility]) Body height 68 [in_i] 68 [in_i] [facility] ([facility]) Systolic blood pressure 118 mm[Hg] 118 mm[Hg] A [facility] ([facility]) Diastolic blood pressure 64 mm[Hg] 64 mm[Hg] [facility] ([facility]) Body height 68 [in_i] 68 [in_i] [facility] ([facility]) Diastolic blood pressure 64 mm[Hg] 64 mm[Hg] [facility] ([facility]) Systolic blood pressure 118 mm[Hg] 118 mm[Hg] [facility] ([facility]) Body height 68 [in_i] 68 [in_i] [facility] ([facility]) Systolic blood pressure 118 mm[Hg] 118 mm[Hg] [facility] ([facility]) Diastolic blood pressure 64 mm[Hg] 64 mm[Hg] [facility] ([facility]) Body height 68 [in_i] 68 [in_i] [facility] ([facility]) Systolic blood pressure 118 mm[Hg] 118 mm[Hg] [facility] ([facility] [place] Diastolic blood pressure 64 mm[Hg] 64 mm[Hg] SANTHOSH ([facility] [place]) Body height 68 [in_i] 68 [in_i] SANTHOSH ([facility] [place]) Systolic blood pressure 118 mm[Hg] 118 mm[Hg] A THENA ([facility] [place]) Diastolic blood pressure 65 mm[Hg] 65 mm[Hg] SANTHOSH ([facility] [place]) Body height 68 [in_i] 68 [in_i] SANTHOSH ([facility] [place]) Systolic blood pressure 103 mm[Hg] 103 mm[Hg] A THENA ([facility] [place]) Diastolic blood pressure 65 mm[Hg] 65 mm[Hg] SANTHOSH ([facility]) Body height 68 [in_i] 68 [in_i] SANTHOSH ([facility] [place]) Systolic blood pressure 103 mm[Hg] 103 mm[Hg] A THENA ([facility] [place]) Diastolic blood pressure 65 mm[Hg] 65 mm[Hg] SANTHOSH ([facility] [place]) Body height 68 [in_i] 68 [in_i] SANTHOSH ([facility] [place]) Systolic blood pressure 103 mm[Hg] 103 mm[Hg] A THENA ([facility] [place]) Diastolic blood pressure 65 mm[Hg] 65 mm[Hg] SANTHOSH ([facility] [place]) Body height 68 [in_i] 68 [in_i] SANTHOSH ([facility] [place]) Systolic blood pressure 103 mm[Hg] 103 mm[Hg] A THENA ([facility] [place]) Diastolic blood pressure 65 mm[Hg] 65 mm[Hg] SANTHOSH ([facility] [place]) Body height 68 [in_i] 68 [in_i] SANTHOSH ([facility] [place]) Systolic blood pressure 103 mm[Hg] 103 mm[Hg] A THENA ([facility] [place]) Diastolic blood pressure 65 mm[Hg] 65 mm[Hg] SANTHOSH ([facility] [place]) Body height 68 [in_i] 68 [in_i] SANTHOSH ([facility] [place]) Systolic blood pressure 103 mm[Hg] 103 mm[Hg] A THENA ([facility] [place]) Diastolic blood pressure 65 mm[Hg] 65 mm[Hg] SANTHOSH ([facility]) Body height 68 [in_i] 68 [in_i] SANTHOSH ([facility]) Systolic blood pressure 103 mm[Hg] 103 mm[Hg] A THENA ([facility] [place]) Body weight 120.6 [lb_av] 120.6 [lb_av] eCW1 ([facility]) Body height 68 [in_i] 68 [in_i] eCW1 ([facility]) Body mass index (BMI) [Ratio] 18.34 kg/m2 18.34 kg/m2 eCW1 ([facility]) Heart rate 86 /min 86 /min eCW1 ([facility]) Respiratory rate 18 /min 18 /min eCW1 ([facility]) Diastolic blood pressure 82 mm[Hg] 82 mm[Hg] eCW1 ([facility]) Body temperature 98.3 [degF] 98.3 [degF] eCW1 ( [facility]) Systolic blood pressure 128 mm[Hg] 128 mm[Hg] e CW1 ([facility]) Diastolic blood pressure 58 mm[Hg] 58 mm[Hg] SANTHOSH ([facility] [place]) Body height 68 [in_i] 68 [in_i] SANTHOSH ([facility]) Systolic blood pressure 102 mm[Hg] 102 mm[Hg] A THENA ([facility]) Diastolic blood pressure 58 mm[Hg] 58 mm[Hg] SANTHOSH ([facility] [place]) Body height 68 [in_i] 68 [in_i] SANTHOSH ([facility] [place]) Systolic blood pressure 102 mm[Hg] 102 mm[Hg] A THENA ([facility] [place]) Diastolic blood pressure 58 mm[Hg] 58 mm[Hg] SANTHOSH ([facility]) Body height 68 [in_i] 68 [in_i] SANTHOSH ([facility] [place]) Systolic blood pressure 102 mm[Hg] 102 mm[Hg] A THENA ([facility] [place]) Body height 68 [in_i] 68 [in_i] SANTHOSH ([facility] [place]) Systolic blood pressure 102 mm[Hg] 102 mm[Hg] A THENA ([facility] [place]) Diastolic blood pressure 58 mm[Hg] 58 mm[Hg] SANTHOSH ([facility] [place]) Body height 68 [in_i] 68 [in_i] SANTHOSH ([facility] [place]) Systolic blood pressure 102 mm[Hg] 102 mm[Hg] A THENA ([facility]) Diastolic blood pressure 58 mm[Hg] 58 mm[Hg] SANTHOSH ([facility] [place]) Diastolic blood pressure 58 mm[Hg] 58 mm[Hg] SANTHOSH ([facility] [place]) Body height 68 [in_i] 68 [in_i] SANTHOSH ([facility]) Systolic blood pressure 102 mm[Hg] 102 mm[Hg] A THENA ([facility]) Diastolic blood pressure 58 mm[Hg] 58 mm[Hg] SANTHOSH ([facility]) Body height 68 [in_i] 68 [in_i] SANTHOSH ([facility] [place]) Systolic blood pressure 102 mm[Hg] 102 mm[Hg] A THENA ([facility] [place]) Body height 68 [in_i] 68 [in_i] SANTHOSH ([facility] [place]) Systolic blood pressure 102 mm[Hg] 102 mm[Hg] A THENA ([facility] [place]) Diastolic blood pressure 68 mm[Hg] 68 mm[Hg] SANTHOSH ([facility] [place]) Diastolic blood pressure 68 mm[Hg] 68 mm[Hg] SANTHOSH ([facility] [place]) Body height 68 [in_i] 68 [in_i] SANTHOSH ([facility] [place]) Systolic blood pressure 102 mm[Hg] 102 mm[Hg] A THENA ([facility] [place]) Diastolic blood pressure 68 mm[Hg] 68 mm[Hg] SANTHOSH ([facility] [place]) Body height 68 [in_i] 68 [in_i] SANTHOSH ([facility] [place]) Systolic blood pressure 102 mm[Hg] 102 mm[Hg] A THENA ([facility] [place]) Diastolic blood pressure 68 mm[Hg] 68 mm[Hg] SANTHOSH ([facility] [place]) Body height 68 [in_i] 68 [in_i] SANTHOSH ([facility] [place]) Systolic blood pressure 102 mm[Hg] 102 mm[Hg] A THENA ([facility] [place]) Diastolic blood pressure 68 mm[Hg] 68 mm[Hg] SANTHOSH ([facility] [place]) Body height 68 [in_i] 68 [in_i] SANTHOSH ([facility] [place]) Systolic blood pressure 102 mm[Hg] 102 mm[Hg] A THENA ([facility] [place]) Diastolic blood pressure 68 mm[Hg] 68 mm[Hg] SANTHOSH ([facility] [place]) Body height 68 [in_i] 68 [in_i] SANTHOSH ([facility] [place]) Systolic blood pressure 102 mm[Hg] 102 mm[Hg] A THENA ([facility] [place]) Diastolic blood pressure 68 mm[Hg] 68 mm[Hg] SANTHOSH ([facility] [place]) Body height 68 [in_i] 68 [in_i] SANTHOSH ([facility] [place]) Systolic blood pressure 102 mm[Hg] 102 mm[Hg] A THENA ([facility] [place]) Diastolic blood pressure 68 mm[Hg] 68 mm[Hg] SANTHOSH ([facility] [place]) Body height 68 [in_i] 68 [in_i] SANTHOSH ([facility] [place]) Systolic blood pressure 102 mm[Hg] 102 mm[Hg] A THENA ([facility] [place]) Diastolic blood pressure 68 mm[Hg] 68 mm[Hg] SANTHOSH ([facility] [place]) Body height 68 [in_i] 68 [in_i] SANTHOSH ([facility] [place]) Systolic blood pressure 102 mm[Hg] 102 mm[Hg] A THENA ([facility] [place]) Diastolic blood pressure 68 mm[Hg] 68 mm[Hg] SANTHOSH ([facility] [place]) Body height 68 [in_i] 68 [in_i] SANTHOSH ([facility] [place]) Systolic blood pressure 102 mm[Hg] 102 mm[Hg] A THENA ([facility] [place]) Diastolic blood pressure 68 mm[Hg] 68 mm[Hg] SANTHOSH ([facility] [place]) Body height 68 [in_i] 68 [in_i] SANTHOSH ([facility] [place]) Systolic blood pressure 102 mm[Hg] 102 mm[Hg] A THENA ([facility] [place]) Diastolic blood pressure 68 mm[Hg] 68 mm[Hg] SANTHOSH ([facility] [place]) Body height 68 [in_i] 68 [in_i] SANTHOSH ([facility] [place]) Systolic blood pressure 102 mm[Hg] 102 mm[Hg] A THENA ([facility] [place]) Body height 68 [in_i] 68 [in_i] SANTHOSH ([facility] [place]) Systolic blood pressure 108 mm[Hg] 108 mm[Hg] A THENA ([facility] [place]) Diastolic blood pressure 65 mm[Hg] 65 mm[Hg] SANTHOSH ([facility] [place]) Diastolic blood pressure 65 mm[Hg] 65 mm[Hg] SANTHOSH ([facility] [place]) Body height 68 [in_i] 68 [in_i] SANTHOSH ([facility] [place]) Systolic blood pressure 108 mm[Hg] 108 mm[Hg] A THENA ([facility] [place]) Body height 68 [in_i] 68 [in_i] SANTHOSH ([facility] [place]) Diastolic blood pressure 65 mm[Hg] 65 mm[Hg] SANTHOSH ([facility] [place]) Systolic blood pressure 108 mm[Hg] 108 mm[Hg] A THENA ([facility] [place]) Diastolic blood pressure 65 mm[Hg] 65 mm[Hg] SANTHOSH ([facility] [place]) Body height 68 [in_i] 68 [in_i] SANTHOSH ([facility] [place]) Systolic blood pressure 108 mm[Hg] 108 mm[Hg] A THENA ([facility] [place]) Diastolic blood pressure 65 mm[Hg] 65 mm[Hg] SANTHOSH ([facility] [place]) Body height 68 [in_i] 68 [in_i] SANTHOSH ([facility] [place]) Systolic blood pressure 108 mm[Hg] 108 mm[Hg] A THENA ([facility] [place]) Diastolic blood pressure 65 mm[Hg] 65 mm[Hg] SANTHOSH ([facility] [place]) Body height 68 [in_i] 68 [in_i] SANTHOSH ([facility] [place]) Systolic blood pressure 108 mm[Hg] 108 mm[Hg] A THENA ([facility] [place]) Diastolic blood pressure 65 mm[Hg] 65 mm[Hg] SANTHOSH ([facility] [place]) Body height 68 [in_i] 68 [in_i] SANTHOSH ([facility] [place]) Systolic blood pressure 108 mm[Hg] 108 mm[Hg] A THENA ([facility] [place]) Diastolic blood pressure 65 mm[Hg] 65 mm[Hg] SANTHOSH ([facility] [place]) Body height 68 [in_i] 68 [in_i] SANTHOSH ([facility] [place]) Systolic blood pressure 108 mm[Hg] 108 mm[Hg] A THENA ([facility] [place]) Diastolic blood pressure 65 mm[Hg] 65 mm[Hg] SANTHOSH ([facility] [place]) Body height 68 [in_i] 68 [in_i] SANTHOSH ([facility] [place]) Systolic blood pressure 108 mm[Hg] 108 mm[Hg] A THENA ([facility] [place]) Systolic blood pressure 108 mm[Hg] 108 mm[Hg] A THENA ([facility] [place]) Diastolic blood pressure 65 mm[Hg] 65 mm[Hg] SANTHOSH ([facility] [place]) Body height 68 [in_i] 68 [in_i] SANTHOSH ([facility] [place]) Diastolic blood pressure 65 mm[Hg] 65 mm[Hg] SANTHOSH ([facility] [place]) Body height 68 [in_i] 68 [in_i] SANTHOSH ([facility] [place]) Systolic blood pressure 108 mm[Hg] 108 mm[Hg] A THENA ([facility] [place]) Diastolic blood pressure 65 mm[Hg] 65 mm[Hg] SANTHOSH ([facility] [place]) Body height 68 [in_i] 68 [in_i] SANTHOSH ([facility] [place]) Systolic blood pressure 108 mm[Hg] 108 mm[Hg] A THENA ([facility] [place]) Diastolic blood pressure 65 mm[Hg] 65 mm[Hg] SANTHOSH ([facility] [place]) Body height 68 [in_i] 68 [in_i] SANTHOSH ([facility] [place]) Systolic blood pressure 108 mm[Hg] 108 mm[Hg] A THENA ([facility] [place]) Diastolic blood pressure 65 mm[Hg] 65 mm[Hg] SANTHOSH ([facility] [place]) Body height 68 [in_i] 68 [in_i] SANTHOSH ([facility] [place]) Systolic blood pressure 108 mm[Hg] 108 mm[Hg] A THENA ([facility] [place]) Diastolic blood pressure 65 mm[Hg] 65 mm[Hg] SANTHOSH ([facility] [place]) Body height 68 [in_i] 68 [in_i] SANTHOSH ([facility] [place]) Systolic blood pressure 108 mm[Hg] 108 mm[Hg] A THENA ([facility] [place]) Diastolic blood pressure 82 mm[Hg] 82 mm[Hg] SANTHOSH ([facility] [place]) Body height 68 [in_i] 68 [in_i] SANTHOSH ([facility] [place]) Systolic blood pressure 126 mm[Hg] 126 mm[Hg] A THENA ([facility] [place]) Diastolic blood pressure 82 mm[Hg] 82 mm[Hg] SANTHOSH ([facility] [place]) Body height 68 [in_i] 68 [in_i] SANTHOSH ([facility] [place]) Systolic blood pressure 126 mm[Hg] 126 mm[Hg] A THENA ([facility] [place]) Diastolic blood pressure 82 mm[Hg] 82 mm[Hg] SANTHOSH ([facility] [place]) Body height 68 [in_i] 68 [in_i] SANTHOSH ([facility] [place]) Systolic blood pressure 126 mm[Hg] 126 mm[Hg] A THENA ([facility] [place]) Diastolic blood pressure 82 mm[Hg] 82 mm[Hg] SANTHOSH ([facility] [place]) Body height 68 [in_i] 68 [in_i] SANTHOSH ([facility] [place]) Systolic blood pressure 126 mm[Hg] 126 mm[Hg] A THENA ([facility] [place]) Diastolic blood pressure 82 mm[Hg] 82 mm[Hg] SANTHOSH ([facility] [place]) Body height 68 [in_i] 68 [in_i] SANTHOSH ([facility] [place]) Systolic blood pressure 126 mm[Hg] 126 mm[Hg] A THENA ([facility] [place]) Diastolic blood pressure 82 mm[Hg] 82 mm[Hg] SANTHOSH ([facility] [place]) Body height 68 [in_i] 68 [in_i] SANTHOSH ([facility] [place]) Systolic blood pressure 126 mm[Hg] 126 mm[Hg] A THENA ([facility] [place]) Diastolic blood pressure 82 mm[Hg] 82 mm[Hg] SANTHOSH ([facility] [place]) Body height 68 [in_i] 68 [in_i] SANTHOSH ([facility] [place]) Systolic blood pressure 126 mm[Hg] 126 mm[Hg] A THENA ([facility] [place]) Diastolic blood pressure 82 mm[Hg] 82 mm[Hg] SANTHOSH ([facility] [place]) Diastolic blood pressure 82 mm[Hg] 82 mm[Hg] SANTHOSH ([facility] [place]) Body height 68 [in_i] 68 [in_i] SANTHOSH ([facility] [place]) Systolic blood pressure 126 mm[Hg] 126 mm[Hg] A THENA ([facility] [place]) Body height 68 [in_i] 68 [in_i] SANTHOSH ([facility] [place]) Systolic blood pressure 126 mm[Hg] 126 mm[Hg] A THENA ([facility]) Diastolic blood pressure 82 mm[Hg] 82 mm[Hg] SANTHOSH ([facility] [place]) Body height 68 [in_i] 68 [in_i] SANTHOSH ([facility] [place]) Systolic blood pressure 126 mm[Hg] 126 mm[Hg] A THENA ([facility] [place]) Diastolic blood pressure 82 mm[Hg] 82 mm[Hg] SANTHOSH ([facility] [place]) Body height 68 [in_i] 68 [in_i] SANTHOSH ([facility] [place]) Systolic blood pressure 126 mm[Hg] 126 mm[Hg] A THENA ([facility] [place]) Diastolic blood pressure 82 mm[Hg] 82 mm[Hg] SANTHOSH ([facility] [place]) Body height 68 [in_i] 68 [in_i] SANTHOSH ([facility] [place]) Systolic blood pressure 126 mm[Hg] 126 mm[Hg] A THENA ([facility] [place]) Diastolic blood pressure 82 mm[Hg] 82 mm[Hg] SANTHOSH ([facility] [place]) Body height 68 [in_i] 68 [in_i] SANTHOSH ([facility] [place]) Systolic blood pressure 126 mm[Hg] 126 mm[Hg] A THENA ([facility] [place]) Diastolic blood pressure 82 mm[Hg] 82 mm[Hg] SANTHOSH ([facility] [place]) Body height 68 [in_i] 68 [in_i] SANTHOSH ([facility] [place]) Systolic blood pressure 126 mm[Hg] 126 mm[Hg] A THENA ([facility] [place]) Diastolic blood pressure 82 mm[Hg] 82 mm[Hg] SANTHOSH ([facility] [place]) Body height 68 [in_i] 68 [in_i] SANTHOSH ([facility] [place]) Systolic blood pressure 126 mm[Hg] 126 mm[Hg] A THENA ([facility] [place]) Diastolic blood pressure 82 mm[Hg] 82 mm[Hg] SANTHOSH ([facility] [place]) Body height 68 [in_i] 68 [in_i] SANTHOSH ([facility] [place]) Systolic blood pressure 126 mm[Hg] 126 mm[Hg] A THENA ([facility] [place]) Diastolic blood pressure 82 mm[Hg] 82 mm[Hg] SANTHOSH ([facility]) Body height 68 [in_i] 68 [in_i] SANTHOSH ([facility]) Systolic blood pressure 126 mm[Hg] 126 mm[Hg] A THENA ([facility]) Diastolic blood pressure 82 mm[Hg] 82 mm[Hg] SANTHOSH ([facility]) Body height 68 [in_i] 68 [in_i] SANTHOSH ([facility]) Systolic blood pressure 126 mm[Hg] 126 mm[Hg] A THENA ([facility]) Systolic blood pressure 122 mm[Hg] 122 mm[Hg] M EDENT ([facility], ) Diastolic blood pressure 70 mm[Hg] 70 mm[Hg] MEDENT ([facility], ) Body height 68 [in_i] 68 [in_i] [facility] ([facility], ) 5'8" Body weight 128.38 [lb_av] 128.38 [lb_av] MEDEN T ([facility], ) Body mass index (BMI) [Ratio] 19.5 kg/m2 19.5 k g/m2 [facility] ([facility], ) [place] body weight 154 [lb_av] 154 [lb_av] [facility] Body weight 58.231 kg 58.231 kg [facility] ([facility], ) Body surface area Derived from formula 1.69 m2 1.69 m2 [facility] ([facility], ) Systolic blood pressure 104 mm[Hg] 104 mm[Hg] A THENA ([facility]) Diastolic blood pressure 67 mm[Hg] 67 mm[Hg] SANTHOSH ([facility]) Body height 68 [in_i] 68 [in_i] SANTHOSH ([facility]) Diastolic blood pressure 67 mm[Hg] 67 mm[Hg] SANTHOSH ([facility]) Body height 68 [in_i] 68 [in_i] SANTHOSH ([facility]) Systolic blood pressure 104 mm[Hg] 104 mm[Hg] A THENA ([facility]) Diastolic blood pressure 67 mm[Hg] 67 mm[Hg] SANTHOSH ([facility]) Body height 68 [in_i] 68 [in_i] SANTHOSH ([facility] [place]) Systolic blood pressure 104 mm[Hg] 104 mm[Hg] A THENA ([facility] [place]) Diastolic blood pressure 67 mm[Hg] 67 mm[Hg] SANTHOSH ([facility] [place]) Body height 68 [in_i] 68 [in_i] SANTHOSH ([facility] [place]) Systolic blood pressure 104 mm[Hg] 104 mm[Hg] A THENA ([facility] [place]) Diastolic blood pressure 67 mm[Hg] 67 mm[Hg] SANTHOSH ([facility] [place]) Body height 68 [in_i] 68 [in_i] SANTHOSH ([facility] [place]) Systolic blood pressure 104 mm[Hg] 104 mm[Hg] A THENA ([facility] [place]) Diastolic blood pressure 67 mm[Hg] 67 mm[Hg] SANTHOSH ([facility] [place]) Body height 68 [in_i] 68 [in_i] SANTHOSH ([facility] [place]) Systolic blood pressure 104 mm[Hg] 104 mm[Hg] A THENA ([facility] [place]) Diastolic blood pressure 67 mm[Hg] 67 mm[Hg] SANTHOSH ([facility] [place]) Body height 68 [in_i] 68 [in_i] SANTHOSH ([facility] [place]) Systolic blood pressure 104 mm[Hg] 104 mm[Hg] A THENA ([facility] [place]) Diastolic blood pressure 67 mm[Hg] 67 mm[Hg] SANTHOSH ([facility] [place]) Body height 68 [in_i] 68 [in_i] SANTHOSH ([facility] [place]) Systolic blood pressure 104 mm[Hg] 104 mm[Hg] A THENA ([facility] [place]) Diastolic blood pressure 67 mm[Hg] 67 mm[Hg] SANTHOSH ([facility] [place]) Body height 68 [in_i] 68 [in_i] SANTHOSH ([facility] [place]) Systolic blood pressure 104 mm[Hg] 104 mm[Hg] A THENA ([facility] [place]) Diastolic blood pressure 67 mm[Hg] 67 mm[Hg] SANTHOSH ([facility]) Body height 68 [in_i] 68 [in_i] [facility]H ([facility]) Systolic blood pressure 104 mm[Hg] 104 mm[Hg] A THENA ([facility]) Diastolic blood pressure 67 mm[Hg] 67 mm[Hg] [facility]H ([facility]) Body height 68 [in_i] 68 [in_i] [facility]H ([facility]) Systolic blood pressure 104 mm[Hg] 104 mm[Hg] A THENA ([facility]) Diastolic blood pressure 67 mm[Hg] 67 mm[Hg] [facility]H ([facility]) Body height 68 [in_i] 68 [in_i] [facility]H ([facility]) Systolic blood pressure 104 mm[Hg] 104 mm[Hg] A THENA ([facility]) Diastolic blood pressure 67 mm[Hg] 67 mm[Hg] [facility]H ([facility]) Body height 68 [in_i] 68 [in_i] [facility]TH[facility]H ([facility]) Systolic blood pressure 104 mm[Hg] 104 mm[Hg] A THENA ([facility]) Diastolic blood pressure 67 mm[Hg] 67 mm[Hg] [facility]H ([facility]) Body height 68 [in_i] 68 [in_i] [facility]H ([facility]) Systolic blood pressure 104 mm[Hg] 104 mm[Hg] A THENA ([facility]) Diastolic blood pressure 67 mm[Hg] 67 mm[Hg] [facility]H ([facility]) Body height 68 [in_i] 68 [in_i] [facility]H ([facility]) Systolic blood pressure 104 mm[Hg] 104 mm[Hg] A THENA ([facility]) Diastolic blood pressure 67 mm[Hg] 67 mm[Hg] [facility]H ([facility]) Body height 68 [in_i] 68 [in_i] [facility]H ([facility]) Systolic blood pressure 104 mm[Hg] 104 mm[Hg] A THENA ([facility]) Diastolic blood pressure 67 mm[Hg] 67 mm[Hg] [facility]H ([facility]) Body height 68 [in_i] 68 [in_i] [facility]H ([facility]) Systolic blood pressure 104 mm[Hg] 104 mm[Hg] A THENA ([facility]) Diastolic blood pressure 67 mm[Hg] 67 mm[Hg] [facility]H ([facility]) Body height 68 [in_i] 68 [in_i] SATNHOSH ([facility]) Systolic blood pressure 104 mm[Hg] 104 mm[Hg] A THENA ([facility]) Diastolic blood pressure 67 mm[Hg] 67 mm[Hg] [facility]H ([facility]) Body height 68 [in_i] 68 [in_i] [facility] ([facility]) Systolic blood pressure 104 mm[Hg] 104 mm[Hg] A THENA ([facility]) Diastolic blood pressure 67 mm[Hg] 67 mm[Hg] [facility] ([facility]) Body height 68 [in_i] 68 [in_i] [facility]H ([facility]) Systolic blood pressure 104 mm[Hg] 104 mm[Hg] A THENA ([facility]) Diastolic blood pressure 67 mm[Hg] 67 mm[Hg] [facility]H ([facility]) Body height 68 [in_i] 68 [in_i] [facility]H ([facility]) Systolic blood pressure 104 mm[Hg] 104 mm[Hg] A THENA ([facility]) Diastolic blood pressure 76 mm[Hg] 76 mm[Hg] eCW1 ([facility]) Body weight 132 [lb_av] 132 [lb_av] eCW1 ([facility]) Body height 68 [in_i] 68 [in_i] eCW1 ([facility]) Body mass index (BMI) [Ratio] 20.07 kg/m2 20.07 kg/m2 eCW1 ([facility]) Heart rate 80 /min 80 /min eCW1 ([facility]) Respiratory rate 18 /min 18 /min eCW1 ([facility]) Body temperature 97.1 [degF] 97.1 [degF] eCW1 ( [facility]) Systolic blood pressure 126 mm[Hg] 126 mm[Hg] e CW1 ([facility]) Diastolic blood pressure 74 mm[Hg] 74 mm[Hg] SANTHOSH ([facility]) Body height 68 [in_i] 68 [in_i] [facility]TH[facility]H ([facility]) Body mass index (BMI) [Ratio] 19.6 kg/m2 19.6 k g/m2 [facility] ([facility]) Systolic blood pressure 116 mm[Hg] 116 mm[Hg] A THENA ([facility]) Body weight 129 [lb_av] 129 [lb_av] [facility]H ([facility]) Diastolic blood pressure 74 mm[Hg] 74 mm[Hg] [facility]H ([facility]) Body height 68 [in_i] 68 [in_i] [facility] ([facility]) Body mass index (BMI) [Ratio] 19.6 kg/m2 19.6 k g/m2 [facility] ([facility]) Systolic blood pressure 116 mm[Hg] 116 mm[Hg] A THENA ([facility]) Body weight 129 [lb_av] 129 [lb_av] [facility] ([facility]) Diastolic blood pressure 74 mm[Hg] 74 mm[Hg] [facility] ([facility]) Body height 68 [in_i] 68 [in_i] [facility] ([facility]) Body mass index (BMI) [Ratio] 19.6 kg/m2 19.6 k g/m2 [facility] ([facility]) Systolic blood pressure 116 mm[Hg] 116 mm[Hg] A THENA ([facility]) Body weight 129 [lb_av] 129 [lb_av] [facility] ([facility]) Diastolic blood pressure 74 mm[Hg] 74 mm[Hg] [facility] ([facility]) Body height 68 [in_i] 68 [in_i] [facility] ([facility]) Body mass index (BMI) [Ratio] 19.6 kg/m2 19.6 k g/m2 [facility] ([facility]) Systolic blood pressure 116 mm[Hg] 116 mm[Hg] A THENA ([facility]) Body weight 129 [lb_av] 129 [lb_av] [facility] ([facility]) Diastolic blood pressure 74 mm[Hg] 74 mm[Hg] [facility]H ([facility]) Body height 68 [in_i] 68 [in_i] [facility] ([facility]) Body mass index (BMI) [Ratio] 19.6 kg/m2 19.6 k g/m2 [facility] ([facility]) Systolic blood pressure 116 mm[Hg] 116 mm[Hg] A THENA ([facility]) Body weight 129 [lb_av] 129 [lb_av] [facility] ([facility]) Diastolic blood pressure 74 mm[Hg] 74 mm[Hg] [facility] ([facility]) Body height 68 [in_i] 68 [in_i] [facility]H ([facility]) Body mass index (BMI) [Ratio] 19.6 kg/m2 19.6 k g/m2 [facility] ([facility]) Systolic blood pressure 116 mm[Hg] 116 mm[Hg] A THENA ([facility]) Body weight 129 [lb_av] 129 [lb_av] [facility] ([facility]) Diastolic blood pressure 74 mm[Hg] 74 mm[Hg] [facility]TH[facility]H ([facility]) Body height 68 [in_i] 68 [in_i] [facility]TH[facility]H ([facility]) Body mass index (BMI) [Ratio] 19.6 kg/m2 19.6 k g/m2 [facility] ([facility]) Systolic blood pressure 116 mm[Hg] 116 mm[Hg] A THENA ([facility]) Body weight 129 [lb_av] 129 [lb_av] [facility] ([facility]) Diastolic blood pressure 74 mm[Hg] 74 mm[Hg] [facility]H ([facility]) Body height 68 [in_i] 68 [in_i] [facility]H ([facility]) Body mass index (BMI) [Ratio] 19.6 kg/m2 19.6 k g/m2 [facility] ([facility]) Systolic blood pressure 116 mm[Hg] 116 mm[Hg] A THENA ([facility]) Body weight 129 [lb_av] 129 [lb_av] [facility] ([facility]) Diastolic blood pressure 74 mm[Hg] 74 mm[Hg] [facility]H ([facility]) Body height 68 [in_i] 68 [in_i] [facility]H ([facility]) Body mass index (BMI) [Ratio] 19.6 kg/m2 19.6 k g/m2 [facility] ([facility]) Systolic blood pressure 116 mm[Hg] 116 mm[Hg] A THENA ([facility]) Body weight 129 [lb_av] 129 [lb_av] [facility] ([facility]) Diastolic blood pressure 74 mm[Hg] 74 mm[Hg] [facility]H ([facility]) Body height 68 [in_i] 68 [in_i] [facility]TH[facility]H ([facility]) Body mass index (BMI) [Ratio] 19.6 kg/m2 19.6 k g/m2 [facility] ([facility]) Systolic blood pressure 116 mm[Hg] 116 mm[Hg] A THENA ([facility]) Body weight 129 [lb_av] 129 [lb_av] [facility] ([facility]) Diastolic blood pressure 74 mm[Hg] 74 mm[Hg] [facility]H ([facility]) Body height 68 [in_i] 68 [in_i] [facility]H ([facility]) Body mass index (BMI) [Ratio] 19.6 kg/m2 19.6 k g/m2 [facility] ([facility]) Systolic blood pressure 116 mm[Hg] 116 mm[Hg] A THENA ([facility]) Body weight 129 [lb_av] 129 [lb_av] [facility] ([facility]) Diastolic blood pressure 74 mm[Hg] 74 mm[Hg] [facility]TH[facility]H ([facility]) Body height 68 [in_i] 68 [in_i] [facility]TH[facility]H ([facility]) Body mass index (BMI) [Ratio] 19.6 kg/m2 19.6 k g/m2 [facility] ([facility]) Systolic blood pressure 116 mm[Hg] 116 mm[Hg] A THENA ([facility]) Body weight 129 [lb_av] 129 [lb_av] [facility]H ([facility]) Diastolic blood pressure 74 mm[Hg] 74 mm[Hg] [facility]THOSH ([facility]) Body height 68 [in_i] 68 [in_i] [facility]TH[facility]H ([facility]) Body mass index (BMI) [Ratio] 19.6 kg/m2 19.6 k g/m2 [facility]H ([facility]) Systolic blood pressure 116 mm[Hg] 116 mm[Hg] A THENA ([facility]) Body weight 129 [lb_av] 129 [lb_av] [facility]H ([facility]) Diastolic blood pressure 74 mm[Hg] 74 mm[Hg] [facility]TH[facility]H ([facility]) Body height 68 [in_i] 68 [in_i] [facility]TH[facility]H ([facility]) Body mass index (BMI) [Ratio] 19.6 kg/m2 19.6 k g/m2 [facility] ([facility]) Systolic blood pressure 116 mm[Hg] 116 mm[Hg] A THENA ([facility]) Body weight 129 [lb_av] 129 [lb_av] [facility] ([facility]) Diastolic blood pressure 74 mm[Hg] 74 mm[Hg] [facility]TH[facility]H ([facility]) Body height 68 [in_i] 68 [in_i] [facility]TH[facility]H ([facility]) Body mass index (BMI) [Ratio] 19.6 kg/m2 19.6 k g/m2 [facility] ([facility]) Systolic blood pressure 116 mm[Hg] 116 mm[Hg] A THENA ([facility]) Body weight 129 [lb_av] 129 [lb_av] [facility] ([facility]) Systolic blood pressure 116 mm[Hg] 116 mm[Hg] A THENA ([facility]) Body weight 129 [lb_av] 129 [lb_av] [facility]H ([facility]) Diastolic blood pressure 74 mm[Hg] 74 mm[Hg] [facility]TH[facility]H ([facility]) Body height 68 [in_i] 68 [in_i] [facility]TH[facility]H ([facility]) Body mass index (BMI) [Ratio] 19.6 kg/m2 19.6 k g/m2 [facility] ([facility]) Diastolic blood pressure 74 mm[Hg] 74 mm[Hg] [facility]TH[facility]H ([facility]) Body height 68 [in_i] 68 [in_i] [facility]TH[facility]H ([facility]) Body mass index (BMI) [Ratio] 19.6 kg/m2 19.6 k g/m2 [facility]H ([facility]) Systolic blood pressure 116 mm[Hg] 116 mm[Hg] A THENA ([facility]) Body weight 129 [lb_av] 129 [lb_av] [facility]H ([facility]) Diastolic blood pressure 74 mm[Hg] 74 mm[Hg] [facility]TH[facility]H ([facility]) Body height 68 [in_i] 68 [in_i] SANTHOSH ([facility]) Body mass index (BMI) [Ratio] 19.6 kg/m2 19.6 k g/m2 [facility]H ([facility]) Systolic blood pressure 116 mm[Hg] 116 mm[Hg] A THENA ([facility]) Body weight 129 [lb_av] 129 [lb_av] [facility]H ([facility]) Diastolic blood pressure 74 mm[Hg] 74 mm[Hg] SANTHOSH ([facility]) Body height 68 [in_i] 68 [in_i] SANTHOSH ([facility]) Body mass index (BMI) [Ratio] 19.6 kg/m2 19.6 k g/m2 [facility]H ([facility]) Systolic blood pressure 116 mm[Hg] 116 mm[Hg] A THENA ([facility]) Body weight 129 [lb_av] 129 [lb_av] [facility]H ([facility]) Diastolic blood pressure 74 mm[Hg] 74 mm[Hg] [facility]TH[facility]H ([facility]) Body height 68 [in_i] 68 [in_i] SANTHOSH ([facility]) Body mass index (BMI) [Ratio] 19.6 kg/m2 19.6 k g/m2 [facility]TH[facility]H ([facility]) Systolic blood pressure 116 mm[Hg] 116 mm[Hg] A THENA ([facility]) Body weight 129 [lb_av] 129 [lb_av] [facility]H ([facility]) Systolic blood pressure 116 mm[Hg] 116 mm[Hg] A THENA ([facility]) Body weight 129 [lb_av] 129 [lb_av] [facility]H ([facility]) Diastolic blood pressure 74 mm[Hg] 74 mm[Hg] SANTHOSH ([facility]) Body height 68 [in_i] 68 [in_i] SANTHOSH ([facility]) Body mass index (BMI) [Ratio] 19.6 kg/m2 19.6 k g/m2 [facility] ([facility]) Diastolic blood pressure 74 mm[Hg] 74 mm[Hg] [facility]TH[facility]H ([facility]) Body height 68 [in_i] 68 [in_i] [facility]TH[facility]H ([facility]) Body mass index (BMI) [Ratio] 19.6 kg/m2 19.6 k g/m2 [facility] ([facility]) Systolic blood pressure 116 mm[Hg] 116 mm[Hg] A THENA ([facility]) Body weight 129 [lb_av] 129 [lb_av] [facility] ([facility]) Diastolic blood pressure 74 mm[Hg] 74 mm[Hg] SANTHOSH ([facility]) Body height 68 [in_i] 68 [in_i] [facility]TH[facility]H ([facility]) Body mass index (BMI) [Ratio] 19.6 kg/m2 19.6 k g/m2 [facility]H ([facility]) Systolic blood pressure 116 mm[Hg] 116 mm[Hg] A THENA ([facility]) Body weight 129 [lb_av] 129 [lb_av] [facility]H ([facility]) Body mass index (BMI) [Ratio] 19.6 kg/m2 19.6 k g/m2 [facility]H ([facility]) Systolic blood pressure 116 mm[Hg] 116 mm[Hg] A THENA ([facility]) Body weight 129 [lb_av] 129 [lb_av] [facility]H ([facility]) Diastolic blood pressure 74 mm[Hg] 74 mm[Hg] [facility]TH[facility]H ([facility]) Body height 68 [in_i] 68 [in_i] [facility]H ([facility]) Body weight 130.6 [lb_av] 130.6 [lb_av] eCW1 ([facility]) Body height 68 [in_i] 68 [in_i] eCW1 ([facility]) Body mass index (BMI) [Ratio] 19.86 kg/m2 19.86 kg/m2 eCW1 ([facility]) Heart rate 85 /min 85 /min eCW1 ([facility]) Respiratory rate 18 /min 18 /min eCW1 ([facility]) Body temperature 97.8 [degF] 97.8 [degF] eCW1 ( [facility]) Systolic blood pressure 120 mm[Hg] 120 mm[Hg] e CW1 ([facility]) Diastolic blood pressure 80 mm[Hg] 80 mm[Hg] eCW1 ([facility]) Diastolic blood pressure 77 mm[Hg] 77 mm[Hg] SANTHOSH ([facility]) Body height 68 [in_i] 68 [in_i] SANTH[facility]H ([facility]) Systolic blood pressure 123 mm[Hg] 123 mm[Hg] A THENA ([facility]) Diastolic blood pressure 77 mm[Hg] 77 mm[Hg] SANTHOSH ([facility]) Body height 68 [in_i] 68 [in_i] SANTH[facility]H ([facility]) Systolic blood pressure 123 mm[Hg] 123 mm[Hg] A THENA ([facility]) Body height 68 [in_i] 68 [in_i] [facility]H ([facility]) Systolic blood pressure 123 mm[Hg] 123 mm[Hg] A THENA ([facility]) Diastolic blood pressure 77 mm[Hg] 77 mm[Hg] [facility]TH[facility]H ([facility]) Diastolic blood pressure 77 mm[Hg] 77 mm[Hg] [facility]TH[facility]H ([facility]) Body height 68 [in_i] 68 [in_i] SANTH[facility]H ([facility]) Systolic blood pressure 123 mm[Hg] 123 mm[Hg] A THENA ([facility]) Diastolic blood pressure 77 mm[Hg] 77 mm[Hg] SANTHOSH ([facility]) Body height 68 [in_i] 68 [in_i] [facility]TH[facility]H ([facility]) Systolic blood pressure 123 mm[Hg] 123 mm[Hg] A THENA ([facility]) Diastolic blood pressure 77 mm[Hg] 77 mm[Hg] [facility]THOSH ([facility]) Body height 68 [in_i] 68 [in_i] [facility]TH[facility]H ([facility]) Systolic blood pressure 123 mm[Hg] 123 mm[Hg] A THENA ([facility]) Diastolic blood pressure 77 mm[Hg] 77 mm[Hg] SANTHOSH ([facility]) Body height 68 [in_i] 68 [in_i] [facility]TH[facility]H ([facility]) Systolic blood pressure 123 mm[Hg] 123 mm[Hg] A THENA ([facility]) Diastolic blood pressure 77 mm[Hg] 77 mm[Hg] [facility]TH[facility]H ([facility]) Body height 68 [in_i] 68 [in_i] [facility]TH[facility]H ([facility]) Systolic blood pressure 123 mm[Hg] 123 mm[Hg] A THENA ([facility]) Diastolic blood pressure 77 mm[Hg] 77 mm[Hg] SANTHOSH ([facility]) Body height 68 [in_i] 68 [in_i] [facility]THOSH ([facility]) Systolic blood pressure 123 mm[Hg] 123 mm[Hg] A THENA ([facility]) Diastolic blood pressure 77 mm[Hg] 77 mm[Hg] SANTHOSH ([facility]) Body height 68 [in_i] 68 [in_i] [facility]THOSH ([facility]) Systolic blood pressure 123 mm[Hg] 123 mm[Hg] A THENA ([facility]) Diastolic blood pressure 77 mm[Hg] 77 mm[Hg] SANTHOSH ([facility]) Body height 68 [in_i] 68 [in_i] SANTHOSH ([facility]) Systolic blood pressure 123 mm[Hg] 123 mm[Hg] A THENA ([facility]) Diastolic blood pressure 77 mm[Hg] 77 mm[Hg] SANTHOSH ([facility]) Body height 68 [in_i] 68 [in_i] [facility]TH[facility]H ([facility]) Systolic blood pressure 123 mm[Hg] 123 mm[Hg] A THENA ([facility]) Systolic blood pressure 123 mm[Hg] 123 mm[Hg] A THENA ([facility]) Diastolic blood pressure 77 mm[Hg] 77 mm[Hg] SANTHOSH ([facility]) Body height 68 [in_i] 68 [in_i] SANTHOSH ([facility]) Diastolic blood pressure 77 mm[Hg] 77 mm[Hg] [facility]TH[facility]H ([facility]) Body height 68 [in_i] 68 [in_i] SANTHOSH ([facility]) Systolic blood pressure 123 mm[Hg] 123 mm[Hg] A THENA ([facility]) Diastolic blood pressure 77 mm[Hg] 77 mm[Hg] SANTHOSH ([facility]) Body height 68 [in_i] 68 [in_i] SANTHOSH ([facility]) Systolic blood pressure 123 mm[Hg] 123 mm[Hg] A THENA ([facility]) Diastolic blood pressure 77 mm[Hg] 77 mm[Hg] SANTHOSH ([facility]) Body height 68 [in_i] 68 [in_i] SANTHOSH ([facility]) Systolic blood pressure 123 mm[Hg] 123 mm[Hg] A THENA ([facility]) Diastolic blood pressure 77 mm[Hg] 77 mm[Hg] SANTHOSH ([facility]) Body height 68 [in_i] 68 [in_i] [facility]THOSH ([facility]) Systolic blood pressure 123 mm[Hg] 123 mm[Hg] A THENA ([facility]) Diastolic blood pressure 77 mm[Hg] 77 mm[Hg] SANTHOSH ([facility]) Body height 68 [in_i] 68 [in_i] SANTHOSH ([facility]) Systolic blood pressure 123 mm[Hg] 123 mm[Hg] A THENA ([facility]) Diastolic blood pressure 77 mm[Hg] 77 mm[Hg] SANTHOSH ([facility]) Body height 68 [in_i] 68 [in_i] [facility]THOSH ([facility]) Systolic blood pressure 123 mm[Hg] 123 mm[Hg] A THENA ([facility]) Diastolic blood pressure 77 mm[Hg] 77 mm[Hg] [facility]THOSH ([facility]) Body height 68 [in_i] 68 [in_i] SANTHOSH ([facility]) Systolic blood pressure 123 mm[Hg] 123 mm[Hg] A THENA ([facility]) Diastolic blood pressure 77 mm[Hg] 77 mm[Hg] SANTHOSH ([facility]) Body height 68 [in_i] 68 [in_i] [facility] ([facility] [place] Systolic blood pressure 123 mm[Hg] 123 mm[Hg] A THENA ([facility] [place]) Diastolic blood pressure 77 mm[Hg] 77 mm[Hg] SANTHOSH ([facility] [place]) Body height 68 [in_i] 68 [in_i] [facility] ([facility] [place]) Systolic blood pressure 123 mm[Hg] 123 mm[Hg] A THENA ([facility] [place]) Diastolic blood pressure 77 mm[Hg] 77 mm[Hg] [facility]H ([facility] [place]) Body height 68 [in_i] 68 [in_i] SANTH[facility]H ([facility] [place]) Systolic blood pressure 123 mm[Hg] 123 mm[Hg] A THENA ([facility] [place]) Diastolic blood pressure 77 mm[Hg] 77 mm[Hg] [facility]TH[facility]H ([facility]) Body height 68 [in_i] 68 [in_i] [facility]TH[facility]H ([facility]) Systolic blood pressure 123 mm[Hg] 123 mm[Hg] A THENA ([facility]) Diastolic blood pressure 77 mm[Hg] 77 mm[Hg] [facility]TH[facility]H ([facility]) Body height 68 [in_i] 68 [in_i] [facility]TH[facility]H ([facility]) Systolic blood pressure 123 mm[Hg] 123 mm[Hg] A THENA ([facility]) Body weight 134.2 [lb_av] 134.2 [lb_av] eCW1 ([facility]) Body height 68 [in_i] 68 [in_i] eCW1 ([facility]) Body mass index (BMI) [Ratio] 20.40 kg/m2 20.40 kg/m2 eCW1 ([facility]) Heart rate 88 /min 88 /min eCW1 ([facility]) Respiratory rate 18 /min 18 /min eCW1 ([facility]) Body temperature 96.7 [degF] 96.7 [degF] eCW1 ( [facility]) Systolic blood pressure 120 mm[Hg] 120 mm[Hg] e CW1 ([facility]) Diastolic blood pressure 68 mm[Hg] 68 mm[Hg] eCW1 ([facility]) Systolic blood pressure 119 mm[Hg] 119 mm[Hg] A THENA ([facility] [place]) Diastolic blood pressure 68 mm[Hg] 68 mm[Hg] [facility]TH[facility]H ([facility] [place]) Body height 68 [in_i] 68 [in_i] [facility] ([facility] [place]) Body height 68 [in_i] 68 [in_i] [facility]H ([facility] [place]) Systolic blood pressure 119 mm[Hg] 119 mm[Hg] A THENA ([facility] [place]) Diastolic blood pressure 68 mm[Hg] 68 mm[Hg] [facility] ([facility] [place]) Diastolic blood pressure 68 mm[Hg] 68 mm[Hg] [facility] ([facility] [place]) Body height 68 [in_i] 68 [in_i] [facility] ([facility] [place]) Systolic blood pressure 119 mm[Hg] 119 mm[Hg] A THENA ([facility] [place]) Diastolic blood pressure 68 mm[Hg] 68 mm[Hg] [facility]H ([facility] [place]) Body height 68 [in_i] 68 [in_i] [facility] ([facility] [place]) Systolic blood pressure 119 mm[Hg] 119 mm[Hg] A THENA ([facility] [place]) Diastolic blood pressure 68 mm[Hg] 68 mm[Hg] [facility]TH[facility]H ([facility] [place]) Body height 68 [in_i] 68 [in_i] [facility] ([facility] [place]) Systolic blood pressure 119 mm[Hg] 119 mm[Hg] A THENA ([facility] [place]) Systolic blood pressure 119 mm[Hg] 119 mm[Hg] A THENA ([facility] [place]) Diastolic blood pressure 68 mm[Hg] 68 mm[Hg] [facility]H ([facility] [place]) Body height 68 [in_i] 68 [in_i] [facility] ([facility] [place]) Body height 68 [in_i] 68 [in_i] [facility] ([facility] [place]) Diastolic blood pressure 68 mm[Hg] 68 mm[Hg] [facility] ([facility] [place]) Systolic blood pressure 119 mm[Hg] 119 mm[Hg] A THENA ([facility] [place]) Diastolic blood pressure 68 mm[Hg] 68 mm[Hg] [facility]H ([facility] [place]) Body height 68 [in_i] 68 [in_i] [facility] ([facility] [place]) Systolic blood pressure 119 mm[Hg] 119 mm[Hg] A THENA ([facility] [place]) Systolic blood pressure 119 mm[Hg] 119 mm[Hg] A THENA ([facility] [place]) Diastolic blood pressure 68 mm[Hg] 68 mm[Hg] [facility]TH[facility]H ([facility] [place]) Body height 68 [in_i] 68 [in_i] [facility] ([facility] [place]) Diastolic blood pressure 68 mm[Hg] 68 mm[Hg] [facility] ([facility] [place]) Body height 68 [in_i] 68 [in_i] [facility] ([facility] [place]) Systolic blood pressure 119 mm[Hg] 119 mm[Hg] A THENA ([facility] [place]) Diastolic blood pressure 68 mm[Hg] 68 mm[Hg] [facility]H ([facility] [place]) Body height 68 [in_i] 68 [in_i] [facility] ([facility] [place]) Systolic blood pressure 119 mm[Hg] 119 mm[Hg] A THENA ([facility] [place]) Diastolic blood pressure 68 mm[Hg] 68 mm[Hg] [facility] ([facility] [place]) Body height 68 [in_i] 68 [in_i] [facility] ([facility] [place]) Systolic blood pressure 119 mm[Hg] 119 mm[Hg] A THENA ([facility] [place]) Systolic blood pressure 119 mm[Hg] 119 mm[Hg] A THENA ([facility] [place]) Diastolic blood pressure 68 mm[Hg] 68 mm[Hg] [facility]TH[facility]H ([facility] [place]) Body height 68 [in_i] 68 [in_i] [facility]H ([facility] [place]) Diastolic blood pressure 68 mm[Hg] 68 mm[Hg] [facility] ([facility] [place]) Body height 68 [in_i] 68 [in_i] [facility]TH[facility] ([facility] [place]) Systolic blood pressure 119 mm[Hg] 119 mm[Hg] A THENA ([facility] [place]) Diastolic blood pressure 68 mm[Hg] 68 mm[Hg] [facility]TH[facility]H ([facility] [place]) Body height 68 [in_i] 68 [in_i] [facility]TH[facility]H ([facility] [place]) Systolic blood pressure 119 mm[Hg] 119 mm[Hg] A THENA ([facility] [place]) Diastolic blood pressure 68 mm[Hg] 68 mm[Hg] [facility]H ([facility] [place]) Body height 68 [in_i] 68 [in_i] [facility]H ([facility] [place]) Systolic blood pressure 119 mm[Hg] 119 mm[Hg] A THENA ([facility] [place]) Diastolic blood pressure 68 mm[Hg] 68 mm[Hg] [facility]TH[facility]H ([facility] [place]) Body height 68 [in_i] 68 [in_i] [facility]TH[facility]H ([facility] [place]) Systolic blood pressure 119 mm[Hg] 119 mm[Hg] A THENA ([facility] [place]) Diastolic blood pressure 68 mm[Hg] 68 mm[Hg] [facility]TH[facility]H ([facility] [place]) Body height 68 [in_i] 68 [in_i] [facility] ([facility] [place]) Systolic blood pressure 119 mm[Hg] 119 mm[Hg] A THENA ([facility] [place]) Diastolic blood pressure 68 mm[Hg] 68 mm[Hg] [facility]TH[facility]H ([facility] [place]) Body height 68 [in_i] 68 [in_i] [facility]TH[place]H ([facility] [place]) Systolic blood pressure 119 mm[Hg] 119 mm[Hg] A THENA ([facility] [place]) Diastolic blood pressure 68 mm[Hg] 68 mm[Hg] [facility]TH[facility]H ([facility] [place]) Body height 68 [in_i] 68 [in_i] [facility] ([facility] [place]) Systolic blood pressure 119 mm[Hg] 119 mm[Hg] A THENA ([facility] [place]) Diastolic blood pressure 68 mm[Hg] 68 mm[Hg] [facility]H ([facility] [place]) Body height 68 [in_i] 68 [in_i] [facility] ([facility] [place]) Systolic blood pressure 119 mm[Hg] 119 mm[Hg] A THENA ([facility] [place]) Diastolic blood pressure 68 mm[Hg] 68 mm[Hg] [facility]H ([facility] [place]) Body height 68 [in_i] 68 [in_i] [facility] ([facility] [place]) Systolic blood pressure 119 mm[Hg] 119 mm[Hg] A THENA ([facility] [place]) Diastolic blood pressure 68 mm[Hg] 68 mm[Hg] [facility]TH[facility]H ([facility] [place]) Body height 68 [in_i] 68 [in_i] [facility]TH[facility]H ([facility] [place]) Systolic blood pressure 119 mm[Hg] 119 mm[Hg] A THENA ([facility] [place]) Diastolic blood pressure 68 mm[Hg] 68 mm[Hg] [facility]TH[facility]H ([facility] [place]) Body height 68 [in_i] 68 [in_i] [facility]TH[facility] ([facility] [place]) Systolic blood pressure 119 mm[Hg] 119 mm[Hg] A THENA ([facility] [place]) Diastolic blood pressure 68 mm[Hg] 68 mm[Hg] [facility]TH[facility]H ([facility] [place]) Body height 68 [in_i] 68 [in_i] [facility]TH[facility]H ([facility] [place]) Systolic blood pressure 119 mm[Hg] 119 mm[Hg] A THENA ([facility] [place]) Diastolic blood pressure 68 mm[Hg] 68 mm[Hg] [facility]TH[facility]H ([facility] [place]) Body height 68 [in_i] 68 [in_i] [facility]TH[facility]H ([facility] [place]) Systolic blood pressure 119 mm[Hg] 119 mm[Hg] A THENA ([facility] [place]) Diastolic blood pressure 78 mm[Hg] 78 mm[Hg] [facility]TH[facility]H ([facility] [place]) Body height 68 [in_i] 68 [in_i] [place]TH[place]H ([facility] [place]) Systolic blood pressure 119 mm[Hg] 119 mm[Hg] A THENA ([facility] [place]) Diastolic blood pressure 78 mm[Hg] 78 mm[Hg] [facility]TH[place]H ([facility] [place]) Body height 68 [in_i] 68 [in_i] [facility]TH[place] ([facility] [place]) Systolic blood pressure 119 mm[Hg] 119 mm[Hg] A THENA ([facility] [place]) Diastolic blood pressure 78 mm[Hg] 78 mm[Hg] [facility]TH[facility]H ([facility] [place]) Body height 68 [in_i] 68 [in_i] [facility]TH[facility]H ([facility] [place]) Systolic blood pressure 119 mm[Hg] 119 mm[Hg] A THENA ([facility] [place]) Diastolic blood pressure 78 mm[Hg] 78 mm[Hg] [facility]TH[facility]H ([facility] [place]) Body height 68 [in_i] 68 [in_i] [facility]TH[facility]H ([facility] [place]) Systolic blood pressure 119 mm[Hg] 119 mm[Hg] A THENA ([facility] [place]) Diastolic blood pressure 78 mm[Hg] 78 mm[Hg] [facility]TH[place]H ([facility] [place]) Body height 68 [in_i] 68 [in_i] [facility]TH[place]H ([facility] [place]) Systolic blood pressure 119 mm[Hg] 119 mm[Hg] A THENA ([facility] [place]) Diastolic blood pressure 78 mm[Hg] 78 mm[Hg] [facility]TH[facility]H ([facility] [place]) Body height 68 [in_i] 68 [in_i] [place]TH[place]H ([facility] [place]) Systolic blood pressure 119 mm[Hg] 119 mm[Hg] A THENA ([facility] [place]) Diastolic blood pressure 78 mm[Hg] 78 mm[Hg] [place]TH[place]H ([facility] [place]) Body height 68 [in_i] 68 [in_i] [place]TH[place] ([facility] [place]) Systolic blood pressure 119 mm[Hg] 119 mm[Hg] A THENA ([facility] [place]) Diastolic blood pressure 78 mm[Hg] 78 mm[Hg] [facility]TH[place]H ([facility] [place]) Body height 68 [in_i] 68 [in_i] [facility] ([facility] [place]) Systolic blood pressure 119 mm[Hg] 119 mm[Hg] A THENA ([facility] [place]) Diastolic blood pressure 78 mm[Hg] 78 mm[Hg] [facility]TH[facility]H ([facility] [place]) Body height 68 [in_i] 68 [in_i] [facility]TH[facility]H ([facility] [place]) Systolic blood pressure 119 mm[Hg] 119 mm[Hg] A THENA ([facility] [place]) Diastolic blood pressure 78 mm[Hg] 78 mm[Hg] [facility]TH[place]H ([facility] [place]) Body height 68 [in_i] 68 [in_i] [facility]TH[facility]H ([facility] [place]) Systolic blood pressure 119 mm[Hg] 119 mm[Hg] A THENA ([facility] [place]) Diastolic blood pressure 78 mm[Hg] 78 mm[Hg] [facility]TH[place]H ([facility] [place]) Body height 68 [in_i] 68 [in_i] [facility]TH[place]H ([facility] [place]) Systolic blood pressure 119 mm[Hg] 119 mm[Hg] A THENA ([facility] [place]) Diastolic blood pressure 78 mm[Hg] 78 mm[Hg] [facility]TH[facility]H ([facility] [place]) Body height 68 [in_i] 68 [in_i] [facility]TH[place]H ([facility] [place]) Systolic blood pressure 119 mm[Hg] 119 mm[Hg] A THENA ([facility] [place]) Diastolic blood pressure 78 mm[Hg] 78 mm[Hg] [facility]TH[place]H ([facility] [place]) Body height 68 [in_i] 68 [in_i] [place]TH[place]H ([facility] [place]) Systolic blood pressure 119 mm[Hg] 119 mm[Hg] A THENA ([facility] [place]) Diastolic blood pressure 78 mm[Hg] 78 mm[Hg] [facility]TH[place]H ([facility] [place]) Body height 68 [in_i] 68 [in_i] [place] ([facility] [place]) Systolic blood pressure 119 mm[Hg] 119 mm[Hg] A THENA ([facility] [place]) Diastolic blood pressure 78 mm[Hg] 78 mm[Hg] [facility]TH[place]H ([facility] [place]) Body height 68 [in_i] 68 [in_i] [place]H ([facility] [place]) Systolic blood pressure 119 mm[Hg] 119 mm[Hg] A THENA ([facility] [place]) Diastolic blood pressure 78 mm[Hg] 78 mm[Hg] [facility]TH[place]H ([facility] [place]) Body height 68 [in_i] 68 [in_i] [place]TH[place]H ([facility] [place]) Systolic blood pressure 119 mm[Hg] 119 mm[Hg] A THENA ([facility] [place]) Diastolic blood pressure 78 mm[Hg] 78 mm[Hg] [facility]TH[place]H ([facility] [place]) Body height 68 [in_i] 68 [in_i] [place]H ([facility] [place]) Systolic blood pressure 119 mm[Hg] 119 mm[Hg] A THENA ([facility] [place]) Diastolic blood pressure 78 mm[Hg] 78 mm[Hg] [facility]TH[facility]H ([facility] [place]) Body height 68 [in_i] 68 [in_i] [facility]H ([facility] [place]) Systolic blood pressure 119 mm[Hg] 119 mm[Hg] A THENA ([facility] [place]) Body height 68 [in_i] 68 [in_i] [place]TH[place]H ([facility] [place]) Systolic blood pressure 119 mm[Hg] 119 mm[Hg] A THENA ([facility] [place]) Diastolic blood pressure 78 mm[Hg] 78 mm[Hg] [facility]TH[place]H ([facility] [place]) Diastolic blood pressure 78 mm[Hg] 78 mm[Hg] [facility]TH[facility]H ([facility] [place]) Body height 68 [in_i] 68 [in_i] [place]TH[place]H ([facility] [place]) Systolic blood pressure 119 mm[Hg] 119 mm[Hg] A THENA ([facility] [place]) Diastolic blood pressure 78 mm[Hg] 78 mm[Hg] [facility]TH[facility]H ([facility] [place]) Body height 68 [in_i] 68 [in_i] [place]H ([facility] [place]) Systolic blood pressure 119 mm[Hg] 119 mm[Hg] A THENA ([facility] [place]) Diastolic blood pressure 78 mm[Hg] 78 mm[Hg] [facility]TH[place]H ([facility] [place]) Body height 68 [in_i] 68 [in_i] [facility]H ([facility] [place]) Systolic blood pressure 119 mm[Hg] 119 mm[Hg] A THENA ([facility] [place]) Diastolic blood pressure 78 mm[Hg] 78 mm[Hg] [facility]TH[facility]H ([facility] [place]) Body height 68 [in_i] 68 [in_i] [place] ([facility] [place]) Systolic blood pressure 119 mm[Hg] 119 mm[Hg] A THENA ([facility] [place]) Systolic blood pressure 119 mm[Hg] 119 mm[Hg] A THENA ([facility] [place]) Diastolic blood pressure 78 mm[Hg] 78 mm[Hg] [facility]TH[facility]H ([facility] [place]) Body height 68 [in_i] 68 [in_i] [facility]TH[place]H ([facility] [place]) Diastolic blood pressure 78 mm[Hg] 78 mm[Hg] [facility]TH[facility]H ([facility] [place]) Body height 68 [in_i] 68 [in_i] [facility]TH[facility]H ([facility] [place]) Systolic blood pressure 119 mm[Hg] 119 mm[Hg] A THENA ([facility] [place]) Diastolic blood pressure 78 mm[Hg] 78 mm[Hg] [facility]TH[place]H ([facility] [place]) Body height 68 [in_i] 68 [in_i] [facility] ([facility]) Systolic blood pressure 119 mm[Hg] 119 mm[Hg] A THENA ([facility]) Diastolic blood pressure 78 mm[Hg] 78 mm[Hg] [facility]TH[facility]H ([facility]) Body height 68 [in_i] 68 [in_i] [facility]TH[facility]H ([facility]) Systolic blood pressure 119 mm[Hg] 119 mm[Hg] A THENA ([facility]) Patient Treatment Plan of Care Planned Activity Planned Date Details Description Data Source (s) Ondansetron 4 MG Disintegrating Oral Tablet 11/30/2020 12:00:00 AM EDT eCW1 ([facility]) Ondansetron 4 MG Disintegrating Oral Tablet 11/30/2020 12:00:00 AM EDT eCW1 ([facility]) Ondansetron 4 MG Disintegrating Oral Tablet 11/30/2020 12:00:00 AM EDT eCW1 ([facility]) Ondansetron 4 MG Disintegrating Oral Tablet 11/30/2020 12:00:00 AM EDT eCW1 ([facility]) Famotidine 20 MG Oral Tablet 02/23/2020 12:00:00 AM [facility] pantoprazole 40 MG Delayed Release Oral Tablet 02/23/2020 12:00:00 AM [facility] pantoprazole 40 MG Delayed Release Oral Tablet 11/19/2019 12:00:00 AM [facility] Ranitidine 300 MG Oral Tablet 04/22/2019 12:00:[address] [facility] Famotidine 40 MG Oral Tablet 02/02/2019 12:00:00 AM [facility] sennosides, SHELTER 8.6 MG Oral Tablet [Senna-Time] SANTHOSH ([facility]) ranitidine hydrochloride 150 mg tabs SANTH[facility]H ([facility]) pantoprazole 20 MG Delayed Release Oral Tablet [Protonix] [facility]TH[facility]H ([facility]) Promethazine Hydrochloride 25 MG Oral Tablet [facility] ([facility]) pantoprazole sodium 40 mg tbec [facility]TH[facility]H ([facility]) Acetaminophen 325 MG / Oxycodone Hydrochloride 5 MG Oral Tablet [facility] ([facility]) ondansetron odt 4 mg tbdp A THENA ([facility]) Ondansetron 4 MG Oral Tablet [facility] ([facility]) 24 HR Nicotine 0.583 MG/HR Transdermal Patch [facility]H ([facility]) Metronidazole 500 MG Oral Tablet [facility] ([facility]) metoclopramide hydrochloride 10 mg tabs [facility]TH[facility] ([facility]) Metoclopramide 5 MG Oral Tablet [facility] ([facility]) Metoclopramide 10 MG Oral Tablet [facility] ([facility]) Acetaminophen 325 MG / Hydrocodone Bitartrate 5 MG Oral Tablet [facility] ([facility]) gabapentin 600 MG Oral Tablet [facility] ([facility]) gabapentin 800 mg tabs ATHE NA ([facility]) gabapentin 600 mg tabs ATHE NA ([facility]) gabapentin 400 mg caps ATHE NA ([facility]) Famotidine 40 MG Oral Tablet [facility] ([facility]) Famotidine 20 MG Oral Tablet [facility] ([facility]) famotidine 40 mg tabs ATHEN A ([facility]) Ciprofloxacin 500 MG Oral Tablet [facility] ([facility]) chlorhexidine gluconate 1.2 MG/ML Mouthwash [facility] ([facility]) cefdinir 300 MG Oral Capsule [facility] ([facility]) Baclofen 10 MG Oral Tablet A THENA ([facility]) Amoxicillin 500 MG Oral Capsule [facility] ([facility]) tizanidine 4 MG Oral Tablet [facility] ([facility]) sennosides, SHELTER 8.6 MG Oral Tablet [Senna-Time] [facility]H ([facility]) ranitidine hydrochloride 150 mg tabs [facility] ([facility]) pantoprazole 20 MG Delayed Release Oral Tablet [Protonix] [facility] ([facility]) Promethazine Hydrochloride 25 MG Oral Tablet [facility] ([facility]) pantoprazole sodium 40 mg tbec [facility] ([facility]) Acetaminophen 325 MG / Oxycodone Hydrochloride 5 MG Oral Tablet [facility] ([facility]) ondansetron odt 4 mg tbdp A THENA ([facility]) Ondansetron 4 MG Oral Tablet [facility] ([facility]) 24 HR Nicotine 0.583 MG/HR Transdermal Patch [facility] ([facility]) Metronidazole 500 MG Oral Tablet [facility] ([facility]) metoclopramide hydrochloride 10 mg tabs [facility] ([facility]) Metoclopramide 5 MG Oral Tablet [facility] ([facility]) Metoclopramide 10 MG Oral Tablet [facility] ([facility]) Acetaminophen 325 MG / Hydrocodone Bitartrate 5 MG Oral Tablet [facility] ([facility]) gabapentin 600 MG Oral Tablet [facility] ([facility]) gabapentin 800 mg tabs ATHE NA ([facility]) gabapentin 600 mg tabs ATHE NA ([facility]) gabapentin 400 mg caps ATHE NA ([facility]) Famotidine 40 MG Oral Tablet [facility] ([facility]) Famotidine 20 MG Oral Tablet [facility] ([facility]) famotidine 40 mg tabs ATHEN A ([facility]) Ciprofloxacin 500 MG Oral Tablet [facility] ([facility]) chlorhexidine gluconate 1.2 MG/ML Mouthwash [facility] ([facility]) cefdinir 300 MG Oral Capsule [facility] ([facility]) Baclofen 10 MG Oral Tablet A THENA ([facility]) Amoxicillin 500 MG Oral Capsule [facility] ([facility]) tizanidine 4 MG Oral Tablet [facility] ([facility]) sennosides, SHELTER 8.6 MG Oral Tablet [Senna-Time] [facility] ([facility]) ranitidine hydrochloride 150 mg tabs [facility] ([facility]) pantoprazole 20 MG Delayed Release Oral Tablet [Protonix] [facility] ([facility]) Promethazine Hydrochloride 25 MG Oral Tablet [facility] ([facility]) pantoprazole sodium 40 mg tbec [facility] ([facility]) Acetaminophen 325 MG / Oxycodone Hydrochloride 5 MG Oral Tablet [facility] ([facility]) ondansetron odt 4 mg tbdp A THENA ([facility]) Ondansetron 4 MG Oral Tablet [facility] ([facility]) 24 HR Nicotine 0.583 MG/HR Transdermal Patch [facility] ([facility]) Metronidazole 500 MG Oral Tablet [facility] ([facility]) metoclopramide hydrochloride 10 mg tabs [facility] ([facility]) Metoclopramide 5 MG Oral Tablet [facility] ([facility]) Metoclopramide 10 MG Oral Tablet [facility] ([facility]) Acetaminophen 325 MG / Hydrocodone Bitartrate 5 MG Oral Tablet [facility] ([facility]) gabapentin 600 MG Oral Tablet [facility] ([facility]) gabapentin 800 mg tabs ATHE NA ([facility]) gabapentin 600 mg tabs ATHE NA ([facility]) gabapentin 400 mg caps ATHE NA ([facility]) Famotidine 40 MG Oral Tablet [facility] ([facility]) Famotidine 20 MG Oral Tablet [facility] ([facility]) famotidine 40 mg tabs ATHEN A ([facility]) Ciprofloxacin 500 MG Oral Tablet [facility] ([facility]) chlorhexidine gluconate 1.2 MG/ML Mouthwash [facility] ([facility]) cefdinir 300 MG Oral Capsule [facility] ([facility]) Baclofen 10 MG Oral Tablet A THENA ([facility]) Amoxicillin 500 MG Oral Capsule [facility] ([facility]) tizanidine 4 MG Oral Tablet [facility] ([facility]) tizanidine 4 MG Oral Tablet [facility] ([facility]) sennosides, SHELTER 8.6 MG Oral Tablet [Senna-Time] [facility] ([facility]) ranitidine hydrochloride 150 mg tabs [facility] ([facility]) pantoprazole 20 MG Delayed Release Oral Tablet [Protonix] [facility] ([facility]) Promethazine Hydrochloride 25 MG Oral Tablet [facility] ([facility]) pantoprazole sodium 40 mg tbec [facility] ([facility]) Acetaminophen 325 MG / Oxycodone Hydrochloride 5 MG Oral Tablet [facility] ([facility]) ondansetron odt 4 mg tbdp A THENA ([facility]) Ondansetron 4 MG Oral Tablet [facility] ([facility]) 24 HR Nicotine 0.583 MG/HR Transdermal Patch [facility] ([facility]) Metronidazole 500 MG Oral Tablet [facility] ([facility]) metoclopramide hydrochloride 10 mg tabs [facility] ([facility]) Metoclopramide 5 MG Oral Tablet [facility] ([facility]) Metoclopramide 10 MG Oral Tablet [facility] ([facility]) Acetaminophen 325 MG / Hydrocodone Bitartrate 5 MG Oral Tablet [facility] ([facility]) gabapentin 600 MG Oral Tablet [facility] ([facility]) gabapentin 800 mg tabs ATHE NA ([facility]) gabapentin 600 mg tabs ATHE NA ([facility]) gabapentin 400 mg caps ATHE NA ([facility]) Famotidine 40 MG Oral Tablet [facility] ([facility] Famotidine 20 MG Oral Tablet [facility] ([facility]) famotidine 40 mg tabs ATHEN A ([facility]) Ciprofloxacin 500 MG Oral Tablet [facility] ([facility]) chlorhexidine gluconate 1.2 MG/ML Mouthwash [facility] ([facility]) cefdinir 300 MG Oral Capsule [facility] ([facility]) Baclofen 10 MG Oral Tablet A THENA ([facility]) Amoxicillin 500 MG Oral Capsule [facility] ([facility]) tizanidine 4 MG Oral Tablet [facility] ([facility]) sennosides, SHELTER 8.6 MG Oral Tablet [Senna-Time] [facility] ([facility]) ranitidine hydrochloride 150 mg tabs [facility] ([facility]) pantoprazole 20 MG Delayed Release Oral Tablet [Protonix] [facility] ([facility]) Promethazine Hydrochloride 25 MG Oral Tablet [facility] ([facility]) pantoprazole sodium 40 mg tbec [facility] ([facility]) Acetaminophen 325 MG / Oxycodone Hydrochloride 5 MG Oral Tablet [facility] ([facility]) ondansetron odt 4 mg tbdp A THENA ([facility]) Ondansetron 4 MG Oral Tablet [facility] ([facility]) 24 HR Nicotine 0.583 MG/HR Transdermal Patch [facility] ([facility]) Metronidazole 500 MG Oral Tablet [facility] ([facility]) metoclopramide hydrochloride 10 mg tabs [facility] ([facility]) Metoclopramide 5 MG Oral Tablet [facility] ([facility]) Metoclopramide 10 MG Oral Tablet [facility] ([facility]) Acetaminophen 325 MG / Hydrocodone Bitartrate 5 MG Oral Tablet [facility] ([facility]) gabapentin 600 MG Oral Tablet [facility] ([facility]) gabapentin 800 mg tabs ATHE NA ([facility]) gabapentin 600 mg tabs ATHE NA ([facility]) gabapentin 400 mg caps ATHE NA ([facility]) Famotidine 40 MG Oral Tablet [facility] ([facility] Famotidine 20 MG Oral Tablet [facility] ([facility]) famotidine 40 mg tabs ATHEN A ([facility]) Ciprofloxacin 500 MG Oral Tablet [facility] ([facility]) chlorhexidine gluconate 1.2 MG/ML Mouthwash [facility] ([facility]) cefdinir 300 MG Oral Capsule [facility] ([facility]) Baclofen 10 MG Oral Tablet A THENA ([facility]) Amoxicillin 500 MG Oral Capsule [facility] ([facility]) tizanidine 4 MG Oral Tablet [facility] ([facility]) sennosides, SHELTER 8.6 MG Oral Tablet [Senna-Time] [facility] ([facility]) ranitidine hydrochloride 150 mg tabs [facility] ([facility]) pantoprazole 20 MG Delayed Release Oral Tablet [Protonix] [facility] ([facility]) Promethazine Hydrochloride 25 MG Oral Tablet [facility] ([facility]) pantoprazole sodium 40 mg tbec [facility] ([facility]) Acetaminophen 325 MG / Oxycodone Hydrochloride 5 MG Oral Tablet [facility] ([facility]) ondansetron odt 4 mg tbdp A THENA ([facility]) Ondansetron 4 MG Oral Tablet [facility] ([facility]) 24 HR Nicotine 0.583 MG/HR Transdermal Patch [facility] ([facility]) Metronidazole 500 MG Oral Tablet [facility] ([facility]) metoclopramide hydrochloride 10 mg tabs [facility] ([facility]) Metoclopramide 5 MG Oral Tablet [facility] ([facility]) Metoclopramide 10 MG Oral Tablet [facility] ([facility]) Acetaminophen 325 MG / Hydrocodone Bitartrate 5 MG Oral Tablet [facility] ([facility]) gabapentin 600 MG Oral Tablet [facility] ([facility]) gabapentin 800 mg tabs ATHE NA ([facility]) gabapentin 600 mg tabs ATHE NA ([facility]) gabapentin 400 mg caps ATHE NA ([facility]) Famotidine 40 MG Oral Tablet [facility] ([facility]) Famotidine 20 MG Oral Tablet [facility] ([facility]) famotidine 40 mg tabs ATHEN A ([facility]) Ciprofloxacin 500 MG Oral Tablet [facility] ([facility]) chlorhexidine gluconate 1.2 MG/ML Mouthwash [facility] ([facility]) cefdinir 300 MG Oral Capsule [facility] ([facility]) Baclofen 10 MG Oral Tablet A THENA ([facility]) Amoxicillin 500 MG Oral Capsule [facility] ([facility]) tizanidine 4 MG Oral Tablet [facility] ([facility]) ranitidine hydrochloride 150 mg tabs [facility] ([facility]) pantoprazole 20 MG Delayed Release Oral Tablet [Protonix] [facility] ([facility]) pantoprazole sodium 40 mg tbec [facility] ([facility]) ondansetron odt 4 mg tbdp A THENA ([facility]) Ondansetron 4 MG Oral Tablet [facility] ([facility]) Metronidazole 500 MG Oral Tablet [facility] ([facility]) metoclopramide hydrochloride 10 mg tabs [facility] ([facility]) Acetaminophen 325 MG / Hydrocodone Bitartrate 5 MG Oral Tablet [facility] ([facility]) gabapentin 600 MG Oral Tablet [facility] ([facility]) gabapentin 800 mg tabs ATHE NA ([facility]) gabapentin 600 mg tabs ATHE NA ([facility]) gabapentin 400 mg caps ATHE NA ([facility]) Famotidine 40 MG Oral Tablet [facility] ([facility]) Famotidine 20 MG Oral Tablet [facility] ([facility]) famotidine 40 mg tabs ATHEN A ([facility]) tizanidine 4 MG Oral Tablet [facility] ([facility]) ranitidine hydrochloride 150 mg tabs [facility] ([facility]) pantoprazole 20 MG Delayed Release Oral Tablet [Protonix] [facility] ([facility]) pantoprazole sodium 40 mg tbec [facility] ([facility]) tizanidine 4 MG Oral Tablet [facility] ([facility]) ranitidine hydrochloride 150 mg tabs [facility] ([facility]) pantoprazole 20 MG Delayed Release Oral Tablet [Protonix] [facility] ([facility]) pantoprazole sodium 40 mg tbec [facility] ([facility]) ondansetron odt 4 mg tbdp A THENA ([facility]) Ondansetron 4 MG Oral Tablet [facility] ([facility]) metoclopramide hydrochloride 10 mg tabs [facility] ([facility]) Acetaminophen 325 MG / Hydrocodone Bitartrate 5 MG Oral Tablet [facility] ([facility]) gabapentin 600 MG Oral Tablet [facility] ([facility]) gabapentin 800 mg tabs ATHE NA ([facility]) gabapentin 600 mg tabs ATHE NA ([facility]) gabapentin 400 mg caps ATHE NA ([facility]) Famotidine 40 MG Oral Tablet [facility] ([facility]) Famotidine 20 MG Oral Tablet [facility] ([facility]) famotidine 40 mg tabs ATHEN A ([facility]) Amoxicillin 500 MG Oral Capsule [facility] ([facility]) ondansetron odt 4 mg tbdp A THENA ([facility]) Ondansetron 4 MG Oral Tablet [facility] ([facility]) Metronidazole 500 MG Oral Tablet [facility] ([facility]) metoclopramide hydrochloride 10 mg tabs [facility] ([facility]) gabapentin 600 MG Oral Tablet [facility] ([facility]) gabapentin 800 mg tabs ATHE NA ([facility]) gabapentin 600 mg tabs ATHE NA ([facility]) gabapentin 400 mg caps ATHE NA ([facility]) Famotidine 40 MG Oral Tablet [facility] ([facility]) famotidine 40 mg tabs ATHEN A ([facility]) Ciprofloxacin 500 MG Oral Tablet [facility] ([facility]) tizanidine 4 MG Oral Tablet [facility] ([facility]) ranitidine hydrochloride 150 mg tabs [facility] ([facility]) pantoprazole 20 MG Delayed Release Oral Tablet [Protonix] [facility] ([facility]) pantoprazole sodium 40 mg tbec [facility] ([facility]) ondansetron odt 4 mg tbdp A THENA ([facility]) Ondansetron 4 MG Oral Tablet [facility] ([facility]) Metronidazole 500 MG Oral Tablet [facility] ([facility]) metoclopramide hydrochloride 10 mg tabs [facility] ([facility]) gabapentin 600 MG Oral Tablet [facility] ([facility]) gabapentin 800 mg tabs ATHE NA ([facility]) gabapentin 600 mg tabs ATHE NA ([facility]) gabapentin 400 mg caps ATHE NA ([facility]) Famotidine 40 MG Oral Tablet [facility] ([facility]) famotidine 40 mg tabs ATHEN A ([facility]) Ciprofloxacin 500 MG Oral Tablet [facility] ([facility]) tizanidine 4 MG Oral Tablet [facility] ([facility]) ranitidine hydrochloride 150 mg tabs [facility] ([facility]) pantoprazole 20 MG Delayed Release Oral Tablet [Protonix] [facility] ([facility]) pantoprazole sodium 40 mg tbec [facility] ([facility]) ondansetron odt 4 mg tbdp A THENA ([facility]) Ondansetron 4 MG Oral Tablet [facility] ([facility]) Metronidazole 500 MG Oral Tablet [facility] ([facility]) metoclopramide hydrochloride 10 mg tabs [facility] ([facility]) gabapentin 600 MG Oral Tablet [facility] ([facility]) gabapentin 800 mg tabs ATHE NA ([facility]) gabapentin 600 mg tabs ATHE NA ([facility]) gabapentin 400 mg caps ATHE NA ([facility]) Famotidine 40 MG Oral Tablet [facility] ([facility]) famotidine 40 mg tabs ATHEN A ([facility]) Ciprofloxacin 500 MG Oral Tablet [facility] ([facility]) ranitidine hydrochloride 150 mg tabs [facility] ([facility]) pantoprazole 20 MG Delayed Release Oral Tablet [Protonix] [facility] ([facility]) pantoprazole sodium 40 mg tbec [facility] ([facility]) ondansetron odt 4 mg tbdp A THENA ([facility]) gabapentin 800 mg tabs ATHE NA ([facility]) gabapentin 600 mg tabs ATHE NA ([facility]) gabapentin 400 mg caps ATHE NA ([facility]) famotidine 40 mg tabs ATHEN A ([facility]) gabapentin 800 mg tabs ATHE NA ([facility]) gabapentin 600 mg tabs ATHE NA ([facility]) gabapentin 400 mg caps ATHE NA ([facility]) Famotidine 40 MG Oral Tablet [facility] ([facility]) Famotidine 20 MG Oral Tablet [facility] ([facility]) famotidine 40 mg tabs ATHEN A ([facility]) Ciprofloxacin 500 MG Oral Tablet [facility] ([facility]) Amoxicillin 500 MG Oral Capsule [facility] ([facility]) tizanidine 4 MG Oral Tablet [facility] ([facility]) ranitidine hydrochloride 150 mg tabs [facility] ([facility]) pantoprazole 20 MG Delayed Release Oral Tablet [Protonix] [facility] ([facility]) pantoprazole sodium 40 mg tbec [facility] ([facility]) ondansetron odt 4 mg tbdp A THENA ([facility]) Ondansetron 4 MG Oral Tablet [facility] ([facility]) Metronidazole 500 MG Oral Tablet [facility] ([facility]) metoclopramide hydrochloride 10 mg tabs [facility] ([facility]) Acetaminophen 325 MG / Hydrocodone Bitartrate 5 MG Oral Tablet [facility] ([facility]) gabapentin 600 MG Oral Tablet [facility] ([facility]) gabapentin 800 mg tabs ATHE NA ([facility]) gabapentin 600 mg tabs ATHE NA ([facility]) gabapentin 400 mg caps ATHE NA ([facility]) Famotidine 40 MG Oral Tablet [facility] ([facility]) Famotidine 20 MG Oral Tablet [facility] ([facility]) famotidine 40 mg tabs ATHEN A ([facility]) Ciprofloxacin 500 MG Oral Tablet [facility] ([facility]) Amoxicillin 500 MG Oral Capsule [facility] ([facility]) tizanidine 4 MG Oral Tablet [facility] ([facility]) ranitidine hydrochloride 150 mg tabs [facility] ([facility]) pantoprazole 20 MG Delayed Release Oral Tablet [Protonix] [facility] ([facility]) pantoprazole sodium 40 mg tbec [facility] ([facility]) ondansetron odt 4 mg tbdp A THENA ([facility]) Ondansetron 4 MG Oral Tablet [facility] ([facility]) Metronidazole 500 MG Oral Tablet [facility] ([facility]) metoclopramide hydrochloride 10 mg tabs [facility] ([facility]) Acetaminophen 325 MG / Hydrocodone Bitartrate 5 MG Oral Tablet [facility] ([facility]) gabapentin 600 MG Oral Tablet [facility] ([facility]) gabapentin 800 mg tabs ATHE NA ([facility]) gabapentin 600 mg tabs ATHE NA ([facility]) gabapentin 400 mg caps ATHE NA ([facility]) Famotidine 40 MG Oral Tablet [facility] ([facility]) Famotidine 20 MG Oral Tablet [facility] ([facility]) famotidine 40 mg tabs ATHEN A ([facility]) Ciprofloxacin 500 MG Oral Tablet [facility] ([facility]) Amoxicillin 500 MG Oral Capsule [facility] ([facility]) tizanidine 4 MG Oral Tablet [facility] ([facility]) ranitidine hydrochloride 150 mg tabs [facility] ([facility]) pantoprazole 20 MG Delayed Release Oral Tablet [Protonix] [facility] ([facility]) pantoprazole sodium 40 mg tbec [facility] ([facility]) ondansetron odt 4 mg tbdp A THENA ([facility]) Ondansetron 4 MG Oral Tablet [facility] ([facility]) Metronidazole 500 MG Oral Tablet [facility] ([facility]) metoclopramide hydrochloride 10 mg tabs [facility] ([facility]) Acetaminophen 325 MG / Hydrocodone Bitartrate 5 MG Oral Tablet [facility] ([facility]) gabapentin 600 MG Oral Tablet [facility] ([facility]) gabapentin 800 mg tabs ATHE NA ([facility]) gabapentin 600 mg tabs ATHE NA ([facility]) gabapentin 400 mg caps ATHE NA ([facility]) Famotidine 40 MG Oral Tablet [facility] ([facility]) Famotidine 20 MG Oral Tablet [facility] ([facility]) famotidine 40 mg tabs ATHEN A ([facility]) Ciprofloxacin 500 MG Oral Tablet [facility] ([facility]) Amoxicillin 500 MG Oral Capsule [facility] ([facility]) ranitidine hydrochloride 150 mg tabs [facility] ([facility]) pantoprazole 20 MG Delayed Release Oral Tablet [Protonix] [facility] ([facility]) pantoprazole sodium 40 mg tbec [facility] ([facility]) ondansetron odt 4 mg tbdp A THENA ([facility]) metoclopramide hydrochloride 10 mg tabs [facility] ([facility]) gabapentin 600 MG Oral Tablet [facility] ([facility]) gabapentin 800 mg tabs ATHE NA ([facility]) gabapentin 600 mg tabs ATHE NA ([facility]) gabapentin 400 mg caps ATHE NA ([facility]) famotidine 40 mg tabs ATHEN A ([facility]) ranitidine hydrochloride 150 mg tabs [facility] ([facility]) pantoprazole 20 MG Delayed Release Oral Tablet [Protonix] [facility] ([facility]) pantoprazole sodium 40 mg tbec [facility] ([facility]) ondansetron odt 4 mg tbdp A THENA ([facility]) metoclopramide hydrochloride 10 mg tabs [facility] ([facility]) gabapentin 600 MG Oral Tablet [facility] ([facility]) gabapentin 800 mg tabs ATHE NA ([facility]) gabapentin 600 mg tabs ATHE NA ([facility]) gabapentin 400 mg caps ATHE NA ([facility]) famotidine 40 mg tabs ATHEN A ([facility]) ranitidine hydrochloride 150 mg tabs [facility] ([facility]) pantoprazole 20 MG Delayed Release Oral Tablet [Protonix] [facility] ([facility]) pantoprazole sodium 40 mg tbec [facility] ([facility]) ondansetron odt 4 mg tbdp A THENA ([facility]) metoclopramide hydrochloride 10 mg tabs [facility] ([facility]) gabapentin 600 MG Oral Tablet [facility] ([facility]) gabapentin 800 mg tabs ATHE NA ([facility]) gabapentin 600 mg tabs ATHE NA ([facility]) gabapentin 400 mg caps ATHE NA ([facility]) famotidine 40 mg tabs ATHEN A ([facility]) ranitidine hydrochloride 150 mg tabs [facility] ([facility]) famotidine 40 mg tabs ATHEN A ([facility]) ranitidine hydrochloride 150 mg tabs [facility] ([facility]) Ciprofloxacin 500 MG Oral Tablet [facility] ([facility]) Amoxicillin 500 MG Oral Capsule [facility] ([facility]) tizanidine 4 MG Oral Tablet [facility] ([facility]) ranitidine hydrochloride 150 mg tabs [facility] ([facility]) pantoprazole 20 MG Delayed Release Oral Tablet [Protonix] [facility] ([facility]) pantoprazole sodium 40 mg tbec [facility] ([facility]) ondansetron odt 4 mg tbdp A THENA ([facility]) Ondansetron 4 MG Oral Tablet [facility] ([facility]) Metronidazole 500 MG Oral Tablet [facility] ([facility]) metoclopramide hydrochloride 10 mg tabs [facility] ([facility]) Acetaminophen 325 MG / Hydrocodone Bitartrate 5 MG Oral Tablet [facility] ([facility]) gabapentin 600 MG Oral Tablet [facility] ([facility]) metoclopramide hydrochloride 10 mg tabs [facility] ([facility]) gabapentin 600 MG Oral Tablet [facility] ([facility]) pantoprazole 20 MG Delayed Release Oral Tablet [Protonix] [facility] ([facility]) pantoprazole sodium 40 mg tbec [facility] ([facility]) ondansetron odt 4 mg tbdp A THENA ([facility]) metoclopramide hydrochloride 10 mg tabs [facility] ([facility]) gabapentin 600 MG Oral Tablet [facility] ([facility]) gabapentin 800 mg tabs ATHE NA ([facility]) gabapentin 600 mg tabs ATHE NA ([facility]) gabapentin 400 mg caps ATHE NA ([facility]) famotidine 40 mg tabs ATHEN A ([facility]) ranitidine hydrochloride 150 mg tabs [facility] ([facility]) pantoprazole 20 MG Delayed Release Oral Tablet [Protonix] [facility] ([facility]) pantoprazole sodium 40 mg tbec [facility] ([facility]) ondansetron odt 4 mg tbdp A THENA ([facility]) metoclopramide hydrochloride 10 mg tabs [facility] ([facility]) gabapentin 600 MG Oral Tablet [facility] ([facility]) gabapentin 800 mg tabs ATHE NA ([facility]) gabapentin 600 mg tabs ATHE NA ([facility]) gabapentin 400 mg caps ATHE NA ([facility]) famotidine 40 mg tabs ATHEN A ([facility]) ranitidine hydrochloride 150 mg tabs [facility] ([facility]) pantoprazole 20 MG Delayed Release Oral Tablet [Protonix] [facility] ([facility]) pantoprazole sodium 40 mg tbec [facility] ([facility]) ondansetron odt 4 mg tbdp A THENA ([facility]) metoclopramide hydrochloride 10 mg tabs [facility] ([facility]) gabapentin 600 MG Oral Tablet [facility] ([facility]) gabapentin 800 mg tabs ATHE NA ([facility]) gabapentin 600 mg tabs ATHE NA ([facility]) gabapentin 400 mg caps ATHE NA ([facility]) famotidine 40 mg tabs ATHEN A ([facility]) ranitidine hydrochloride 150 mg tabs [facility] ([facility]) pantoprazole 20 MG Delayed Release Oral Tablet [Protonix] [facility] ([facility]) pantoprazole sodium 40 mg tbec [facility] ([facility]) ondansetron odt 4 mg tbdp A THENA ([facility]) metoclopramide hydrochloride 10 mg tabs [facility] ([facility]) gabapentin 600 MG Oral Tablet [facility] ([facility]) gabapentin 800 mg tabs ATHE NA ([facility]) gabapentin 600 mg tabs ATHE NA ([facility]) gabapentin 400 mg caps ATHE NA ([facility]) famotidine 40 mg tabs ATHEN A ([facility]) gabapentin 800 mg tabs ATHE NA ([facility]) gabapentin 600 mg tabs ATHE NA ([facility]) gabapentin 400 mg caps ATHE NA ([facility]) famotidine 40 mg tabs ATHEN A ([facility]) pantoprazole 20 MG Delayed Release Oral Tablet [Protonix] [facility] ([facility]) pantoprazole sodium 40 mg tbec [facility] ([facility]) ondansetron odt 4 mg tbdp A THENA ([facility]) metoclopramide hydrochloride 10 mg tabs [facility] ([facility]) gabapentin 600 MG Oral Tablet [facility] ([facility]) gabapentin 800 mg tabs ATHE NA ([facility]) gabapentin 600 mg tabs ATHE NA ([facility]) gabapentin 400 mg caps ATHE NA ([facility]) ranitidine hydrochloride 150 mg tabs [facility] ([facility]) pantoprazole 20 MG Delayed Release Oral Tablet [Protonix] [facility] ([facility]) pantoprazole sodium 40 mg tbec [facility] ([facility]) ondansetron odt 4 mg tbdp A THENA ([facility]) metoclopramide hydrochloride 10 mg tabs [facility] ([facility]) gabapentin 600 MG Oral Tablet [facility] ([facility])
[2021-03-10] MEDS ORDERED: ONDANSETRON 4MG/2ML VIAL IV ONE (17:45)
[2021-03-10] MEDS ORDERED: NS 1,000 ML IV ONE ×2 (17:45→20:20)
[2021-03-10 18:30] LABS: BASO # 0.1 10^3/uL (0.0-0.2); BASO % 0.3 % (0.0-1.0); EOS % 0.2 % (0.0-3.0); HEMATOCRIT 58.5 % (42.0-52.0); HEMOGLOBIN 19.5 g/dl (13.5-17.5); LYMPH # 1.9 10^3/uL (1.5-5.0); LYMPH % 11.3 % (24.0-44.0); MEAN CORPUSCULAR HEMOGLOBIN 30.3 pg (27.0-33.0); MEAN CORPUSCULAR HGB CONC 33.3 g/dl (32.0-36.5); MONO # 1.1 10^3/uL (0.0-0.8); MONO % 6.4 % (2.0-8.0); NEUTROPHILS # 13.5 10^3/uL (1.5-8.5); NEUTROPHILS % 81.4 % (36.0-66.0); PLATELET COUNT, AUTOMATED 251 10^3/uL (150-450); RED BLOOD COUNT 6.43 10^6/uL (4.30-6.10); WHITE BLOOD COUNT 16.6 10^3/uL (4.0-10.0)
[2021-03-10] MEDS: MORPHINE 4 MG/ML 1ML VIAL/SYRINGE (J2270) IV PRN ×2 (18:48→19:45)
[2021-03-10 19:02] LABS: ALBUMIN 5.6 GM/DL (3.2-5.2); ALT/SGPT 28 U/L (12-78); AMYLASE 79 U/L (25-115); BILIRUBIN,DIRECT 0.2 MG/DL (0.0-0.2); BILIRUBIN,TOTAL 0.8 MG/DL (0.2-1.0); BLOOD UREA NITROGEN 29 MG/DL (7-18); CALCIUM LEVEL 11.7 MG/DL (8.5-10.1); CARBON DIOXIDE LEVEL 28 MEQ/L (21-32); CHLORIDE LEVEL 100 MEQ/L (98-107); CK-MB VALUE MASS 4.7 NG/ML (<3.6); CPK CREATINE PHOSPHOKINASE 348 U/L (39-308); GLOMERULAR FILTRATION RATE 52.5 (>56); GLUCOSE, FASTING 125 MG/DL (70-100); LIPASE 149 U/L (73-393); MB/CK RELATIVE INDEX 1.35 (< OR =4); POTASSIUM SERUM 4.2 MEQ/L (3.5-5.1); SODIUM LEVEL 139 MEQ/L (136-145); TROPONIN I < 0.02 NG/ML (< 0.10)
[2021-03-10] MEDS ORDERED: ISOVUE-370 76% 100ML VIAL As Ordered ONE (19:05)
--- OUTSIDE RECORDS SUMMARY | 2021-03-10 19:23 | CCD ---
Author Author [facility] Organization [facility] Address Unknown Phone Unavailable Care Team Providers Care Recooperer Name Role Phone Saima Ramachandran MD Unavailable [...] Graves MD Unavailable Unavailable Jumalon, M Elvia LIBRARY HISTORIAN Unavailable Unavailable Jumalon, M Elvia LIBRARY HISTORIAN Unavailable Unavailable Jumalon, M Elvia LIBRARY HISTORIAN Unavailable Unavailable Jumalon, M Elvia LIBRARY HISTORIAN Unavailable Unavailable Jumalon, M Elvia LIBRARY HISTORIAN Unavailable Unavailable Jumalon, M Elvia LIBRARY HISTORIAN Unavailable Unavailable Jumalon, M Elvia LIBRARY HISTORIAN Unavailable Unavailable Jumalon, M Elvia LIBRARY HISTORIAN Unavailable Unavailable Jumalon, M Elvia LIBRARY HISTORIAN Unavailable Unavailable Jumalon, M Elvia LIBRARY HISTORIAN Unavailable Unavailable Jumalon, M Elvia LIBRARY HISTORIAN Unavailable Unavailable Jumalon, M Elvia LIBRARY HISTORIAN Unavailable Unavailable Jumalon, M Elvia LIBRARY HISTORIAN Unavailable Unavailable Jumalon, M Elvia LIBRARY HISTORIAN Unavailable Unavailable Jumalon, M Elvia LIBRARY HISTORIAN Unavailable Unavailable Jumalon, M Elvia LIBRARY HISTORIAN Unavailable Unavailable Jumalon, M Elvia LIBRARY HISTORIAN Unavailable Unavailable Jumalon, M Elvia LIBRARY HISTORIAN Unavailable Unavailable Jumalon, M Elvia LIBRARY HISTORIAN Unavailable Unavailable Jumalon, M Elvia LIBRARY HISTORIAN Unavailable Unavailable Jumalon, M Elvia LIBRARY HISTORIAN Unavailable Unavailable Jumalon, M Elvia LIBRARY HISTORIAN Unavailable Unavailable Jumalon, M Elvia LIBRARY HISTORIAN Unavailable Unavailable Jumalon, M Elvia LIBRARY HISTORIAN Unavailable Unavailable Jumalon, M Elvia LIBRARY HISTORIAN Unavailable Unavailable Jumalon, M Elvia LIBRARY HISTORIAN Unavailable Unavailable Jumalon, M Elvia LIBRARY HISTORIAN Unavailable Unavailable Jumalon, M Elvia LIBRARY HISTORIAN Unavailable Unavailable Jumalon, M Elvia LIBRARY HISTORIAN Unavailable Unavailable Jumalon, M Elvia LIBRARY HISTORIAN Unavailable Unavailable ARIF, O KRISTYN KIM Unavailable [...] Janelle DO Unavailable Unavailabl e Bambi-Tartell, M Janelel DO Unavailable Unavailabl e Bambi-Tartell, M Janelle [...] is protected by Article 27-F of the [facility] Public Health law. If you continue you may have access to information: Regarding HIV / AIDS; Provided by facilities licensed or operated by the [facility] Office of Mental Health; or Provided by the [facility] Office for People With Developmental Disabilities. If such information is present, then the following [facility] mandated warning applies: This information has been [...] law may result in a fine or senior care sentence or both. A general authorization for the release of medical or other information is NOT sufficient authorization for further disc losure. Allergies and Adverse Reactions Type Description Substance Reaction Status Data Source(s ) Drug Allergy NKDA NKDA MEDENT (Ashaal lawrence [facility], ) Family History Family Member Name Family Member Gender Family Member Status Date o f Status Description Data Source(s) Unknown Unknown Problem [facility], ) Encounters Encounter Providers Location Date Indications Data Source(s ) Star Ramachandran MD: [address], [address] [place], [place] [address], Ph. Attender: Star Ramachandran MD CT - [facility] 03/08/2021 12:00:00 AM EDT [place] ([facility]) Star Ramachandran MD: [address], [facility] [place], [place] [address], Ph. [phone] Attender: Star Ramachandran MD CT - [facility] 03/03/2021 12:00:00 AM EDT [place] ([facility]) Star Ramachandran MD: [address], [facility] [place], [place] [address], Ph. [phone] Attender: Star Ramachandran MD CT - [facility] 03/03/2021 12:00:00 AM EDT [place] ([facility]) Elvia Mccloud, AUDIOVISUAL TECHNICIAN: [address], [place] [address], Ph. Attender: Elvia MYERS [facility] 02/22/2021 12:00:00 AM EDT ATHSamantha BECKHAM ([facility]) Elvia Mccloud, AUDIOVISUAL TECHNICIAN: [address], [place] [address], Ph. Attender: Elvia MYERS [place] - [facility] 02/22/2021 12:00:00 AM EDT ATHE NA ([facility]) [place]patient [address] [address] 02/22/2021 12:00:00 AM EDT eCW1 ([facility]) Elvia Mccloud, AUDIOVISUAL TECHNICIAN: [address], [place] [address], Ph. Attender: Elvia Mccloud [facility] - [facility] 02/22/2021 12:00:00 AM EDT ATHSamantha NA ([facility]) Unknown [address] [address] 02/14/2021 12:00:00 AM EDT eCW1 ([facility]) Star Ramachandran MD: [address], [facility] [place] [address], Ph. Attender: Star Ramachandran MD CT - [facility] 01/18/2021 12:00:00 AM EDT [place] ([facility]) Star Ramachandran MD: [address], [place] [address], Ph. Attender: Star Ramachandran MD CT - [facility] 01/18/2021 12:00:00 AM EDT [place] ([facility]) Star Ramachandran MD: [address], [place] [address], Ph. Attender: Star Ramachandran MD CT - [facility] 01/18/2021 12:00:00 AM EDT [place] ([facility]) Star Ramachandran MD: [address], [place] [address], Ph. Attender: Star Ramachandran MD CT - [facility] 01/18/2021 12:00:00 AM EDT [place] ([facility]) Star Ramachandran MD: [address], [address], [place] [address], Ph. [phone] Attender: Star Ramachandran MD CT - [facility] 01/13/2021 12:00:00 AM EDT [place] ([facility]) Star Ramachandran MD: [address], [address], [place] [address], Ph. [phone] Attender: Star Ramachandran MD CT - [facility] 01/13/2021 12:00:00 AM EDT [place] ([facility]) Star Ramachandran MD: [address], [address], [place] [address], Ph. [phone] Attender: Star Ramachandran MD CT - [facility] 01/13/2021 12:00:00 AM EDT [place] ([facility]) Star Ramachandran MD: [address], [address], [place] [address], Ph. [phone] Attender: Star Ramachandran MD CT - [facility] 01/13/2021 12:00:00 AM EDT [place] ([facility]) Star Ramachandran MD: [address], [address], [place] [address], Ph. [phone] Attender: Star Ramachandran MD CT - [facility] 01/13/2021 12:00:00 AM EDT [place] ([facility]) Elvia Mccloud, AUDIOVISUAL TECHNICIAN: [address], [address], [place] [address], Ph. Attender: Elvia Mccloud [facility] - [facility] 01/11/2021 12:00:00 AM EDT ATHE NA ([facility]) Elvia Mccloud, AUDIOVISUAL TECHNICIAN: [address], [place] [address], Ph. Attender: Elvia Mccloud [facility] - [facility] 01/11/2021 12:00:00 AM EDT ATHE NA ([facility]) Elvia Mccloud, AUDIOVISUAL TECHNICIAN: [address], [place] [address], Ph. Attender: Elvia Mccloud [facility] - [facility] 01/11/2021 12:00:00 AM EDT ATHE NA ([facility]) Elvia Mccloud, AUDIOVISUAL TECHNICIAN: [address], [place] [address], Ph. Attender: Elvia Mccloud [facility] - [facility] 01/11/2021 12:00:00 AM EDT ATHE NA ([facility]) Elvia Mccloud, AUDIOVISUAL TECHNICIAN: [address], [place] [address], Ph. Attender: Elvia Mccloud [facility] - [facility] 01/11/2021 12:00:00 AM EDT ATHE NA ([facility]) Elvia Mccloud, AUDIOVISUAL TECHNICIAN: [address], [place] [address], Ph. Attender: Elvia Mccloud [facility] - [facility] 01/11/2021 12:00:00 AM EDT ATHE NA ([facility]) Elvia Aguirre Taylorstephanie, AUDIOVISUAL TECHNICIAN: [address], [address], [place] [address], Ph. Attender: Elvia Mccloud [facility] - [facility] 12/15/2020 12:00:00 AM EDT ATHE NA ([facility]) Elvia Mccloud, AUDIOVISUAL TECHNICIAN: [address], [address], [place] [address], Ph. Attender: Elvia Mccloud [facility] - [facility] 12/15/2020 12:00:00 AM EDT ATHE NA ([facility]) Elvia Mccloud, AUDIOVISUAL TECHNICIAN: [address], [place] [address], Ph. Attender: Elvia Mccloud [facility] - [facility] 12/15/2020 12:00:00 AM EDT ATHE NA ([facility]) Elvia Mccloud, AUDIOVISUAL TECHNICIAN: [address], [place] [address], Ph. Attender: Elvia Mccloud [facility] - [facility] 12/15/2020 12:00:00 AM EDT ATHE NA ([facility]) Elvia Mccloud, AUDIOVISUAL TECHNICIAN: [address], [address], [place] [address], Ph. Attender: Elvia Mccloud [facility] - [facility] 12/15/2020 12:00:00 AM EDT ATHE NA ([facility]) Elvia Mccloud, AUDIOVISUAL TECHNICIAN: [address], [place] [address], Ph. Attender: Elvia Mccloud [facility] - [facility] 12/15/2020 12:00:00 AM EDT ATHE NA ([facility]) Elvia Mccloud, AUDIOVISUAL TECHNICIAN: [address], [place] [address], Ph. Attender: Elvia Mccloud [facility] - [facility] 12/15/2020 12:00:00 AM EDT ATHE NA ([facility]) Unknown [address] [address] 12/06/2020 12:00:00 AM EDT eCW1 ([facility]) [place] [address] [address] 12/06/2020 12:00:00 AM EDT eCW1 ([facility]) [place] [address] [address] 11/30/2020 12:00:00 AM EDT eCW1 ([facility]) Unknown [address] [address] 11/22/2020 12:00:00 AM EDT eCW1 ([facility]) Elvia Aguirre Taylorstephanie, AUDIOVISUAL TECHNICIAN: [address], [place] [address], Ph. Attender: Elvia Mccloud [facility] - [facility] 11/03/2020 12:00:00 AM EDT ATHE NA ([facility]) Elvia Mccloud, AUDIOVISUAL TECHNICIAN: [address], [place] [address], Ph. Attender: Elvia Mccloud [facility] - [facility] 11/03/2020 12:00:00 AM EDT ATHE NA ([facility]) Elvia Aguirre Taylorstephanie, AUDIOVISUAL TECHNICIAN: [address], [place] [address], Ph. Attender: Elvia Mccloud [facility] - [facility] 11/03/2020 12:00:00 AM EDT ATHE NA ([facility]) Elvia Mccloud, AUDIOVISUAL TECHNICIAN: [address], [place] [address], Ph. Attender: Elvia Mccloud [facility] - [facility] 11/03/2020 12:00:00 AM EDT ATHE NA ([facility]) Elvia Mccloud, AUDIOVISUAL TECHNICIAN: [address], [place] [address], Ph. Attender: Elvia Mccloud [facility] - [facility] 11/03/2020 12:00:00 AM EDT ATHE NA ([facility]) Elvia Mccloud, AUDIOVISUAL TECHNICIAN: [address], [place] [address], Ph. Attender: Elvia Mccloud [facility] - [facility] 11/03/2020 12:00:00 AM EDT ATHSamantha NA ([facility]) Elvia Mccloud, AUDIOVISUAL TECHNICIAN: [address], [place] [address], Ph. Attender: Elvia Mccloud [facility] - [facility] 11/03/2020 12:00:00 AM EDT ATHE NA ([facility]) Unknown [address] [facility] [address] 10/21/2020 12:00:00 AM EDT eC ([facility]) Stra Ramachandran MD: [address], [place] [address], Ph. Attender: Star Ramachandran MD CT - [facility] 10/06/2020 12:00:00 AM EDT [place] ([facility]) Star Ramachandran MD: [address]105 [address], [address], [place] [address], Ph. Attender: Star Ramachandran MD CT - [facility] 10/06/2020 12:00:00 AM EDT [place] ([facility]) Star Ramachandran MD: [address]61 [address], [address], [place] [address], Ph. Attender: Star Ramachandran MD CT - [facility] 10/06/2020 12:00:00 AM EDT [place] ([facility]) Star Ramachandran MD: [address]89 [address], [address], [place] [address], Ph. Attender: Star Ramachandran MD CT - [facility] 10/06/2020 12:00:00 AM EDT [place] ([facility]) Star Ramachandran MD: [address]22 [address], [address], [place] [address], Ph. Attender: Star Ramachandran MD CT - [facility] 10/06/2020 12:00:00 AM EDT [place] ([facility]) Star Ramachandran MD: [address]01 [address], [address], [place] [address], Ph. Attender: Star Ramachandran MD CT - [facility] 10/06/2020 12:00:00 AM EDT [place] ([facility]) Star Ramachandran MD: [address]77 [address], [address], [place] [address], Ph. Attender: Star Ramachandran MD CT - [facility] 10/06/2020 12:00:00 AM EDT [place] ([facility]) Star Ramachandran MD: [address]051 [address], [address], [place] [address], Ph. Attender: Star Ramachandran MD CT - [facility] 10/06/2020 12:00:00 AM EDT [place] ([facility]) Star Ramachandran MD: [address]67 [address], [address], [place] [address], Ph. [phone] Attender: Star Ramachandran MD CT - [facility] 10/03/2020 12:00:00 AM EDT [place] ([facility]) Star Ramachandran MD: [address]34 [address], [address], [place] [address], Ph. [phone] Attender: Star Ramachandran MD CT - [facility] 10/03/2020 12:00:00 AM EDT [place] ([facility]) Star Ramachandran MD: [address]85 [address], [address], [place] [address], Ph. [phone] Attender: Star HOFFMAN - [facility] 10/03/2020 12:00:00 AM EDT [place] ([facility]) Star Ramachandran MD: [address], [address], [place] [address], Ph. [phone] Attender: Star HOFFMAN - [facility] 10/03/2020 12:00:00 AM EDT [place] ([facility]) Star Ramachandran MD: [address]45 [address], [address], [place] [address], Ph. [phone] Attender: Star Ramachandran MD CT - [facility] 10/03/2020 12:00:00 AM EDT [place] ([facility]) Star Ramachandran MD: 42865 [address], [address], [place] [address], Ph. [phone] Attender: Star HOFFMAN - [facility] 10/03/2020 12:00:00 AM EDT [place] ([facility]) Star Ramachandran MD: [address]951 [address], [address], [place] [address], Ph. [phone] Attender: Star HOFFMAN - [facility] 10/03/2020 12:00:00 AM EDT [place] ([facility]) Star Ramachandran MD: [address]77 [address], [address], [place] [address], Ph. [phone] Attender: Star HOFFMAN - [facility] 10/03/2020 12:00:00 AM EDT [place] ([facility]) Star Ramachandran MD: [address]236 [address], [address], [place] [address], Ph. [phone] Attender: Star HOFFMAN - [facility] 10/03/2020 12:00:00 AM EDT [place] ([facility]) Star Ramachandran MD: [address]73 [address], [address], [place] [address], Ph. Attender: Star HOFFMAN - [facility] 09/29/2020 12:00:00 AM EDT [place] ([facility]) Star Ramachandran MD: 29173 [address], [address], [place] [address], Ph. Attender: Star HOFFMAN - [facility] 09/29/2020 12:00:00 AM EDT [place] ([facility]) Star Ramachandran MD: 49521 [address], [address], [place] [address], Ph. Attender: Star Ramachandran MD CT - [facility] 09/29/2020 12:00:00 AM EDT [place] ([facility]) Star Ramachandran MD: 41850 [address], [address], [place] [address], Ph. Attender: Star Ramachandran MD CT - [facility] 09/29/2020 12:00:00 AM EDT [place] ([facility]) Star Ramachandran MD: [address]1114 [address], [address], [place] [address], Ph. Attender: Star HOFFMAN - [facility] 09/29/2020 12:00:00 AM EDT [place] ([facility]) Star Ramachandran MD: 84465 [address], [address], [place] [address], Ph. Attender: Star HOFFMAN - [facility] 09/29/2020 12:00:00 AM EDT [place] ([facility]) Star Ramcahandran MD: 71873 [address], [address], [place] [address], Ph. Attender: tSar HOFFMAN - [facility] 09/29/2020 12:00:00 AM EDT [place] ([facility]) Star Ramachandran MD: [address]121 [address], [address], [place] [address], Ph. Attender: Star HOFFMAN - [facility] 09/29/2020 12:00:00 AM EDT [place] ([facility]) Star Ramachandran MD: 65334 [address], [address], [place] [address], Ph. Attender: Star Ramachandran MD CT - [facility] 09/29/2020 12:00:00 AM EDT [place] ([facility]) Star Ramachandran MD: 44639 [address], [address], [place] [address], Ph. Attender: Star HOFFMAN - [facility] 09/29/2020 12:00:00 AM EDT [place] ([facility]) Star Ramachandran MD: 37233 [address], [address], [place] [address], Ph. [phone] Attender: Star HOFFMAN - [facility] 09/26/2020 12:00:00 AM EDT [place] ([facility]) Star Ramachandran MD: [address]78 [address], [address], [place] [address], Ph. [phone] Attender: Star HOFFMAN - [facility] 09/26/2020 12:00:00 AM EDT [place] ([facility]) Star Ramachandran MD: 54263 [address], [address], [place] [address], Ph. [phone] Attender: Star HOFFMAN - [facility] 09/26/2020 12:00:00 AM EDT [place] ([facility]) Star Ramachandran MD: [address]20 [address], [address], [place] [address], Ph. [phone] Attender: Star HOFFMAN - [facility] 09/26/2020 12:00:00 AM EDT [place] ([facility]) Star Ramachandran MD: [address]4966 [address], [address], [place] [address], Ph. [phone] Attender: Star Ramachandran MD CT - [facility] 09/26/2020 12:00:00 AM EDT [place] ([facility]) Star Ramachandran MD: [address]4449 [address], [address], [place] [address], Ph. [phone] Attender: Star Ramachandran MD CT - [facility] 09/26/2020 12:00:00 AM EDT [place] ([facility]) Star Ramachandran MD: 80205 [address], [address], [place] [address], Ph. [phone] Attender: Star Ramachandran MD CT - [facility] 09/26/2020 12:00:00 AM EDT [place] ([facility]) Star Ramachandran MD: [address]50 [address], [address], [place] [address], Ph. [phone] Attender: Star Ramachandran MD CT - [facility] 09/26/2020 12:00:00 AM EDT [place] ([facility] [facility]) Star Ramachandran MD: [address], [address], [place] [address], Ph. [phone] Attender: Star HOFFMAN - [facility] 09/26/2020 12:00:00 AM EDT [place] ([facility]) Star Ramachandran MD: [address], [address], [place] [address], Ph. [phone] Attender: Star HOFFMAN - [facility] 09/26/2020 12:00:00 AM EDT [place] ([facility]) Star Ramachandran MD: [address], [address], [place] [address], Ph. [phone] Attender: Star Ramachandran MD CT - [facility] 09/26/2020 12:00:00 AM EDT [place] ([facility]) Elvia Mccloud, AUDIOVISUAL TECHNICIAN: [address], [place] [address], Ph. Attender: Elvia Mccloud [facility] - [facility] 09/22/2020 12:00:00 AM EDT ATHE NA ([facility]) Elvia Mccloud, AUDIOVISUAL TECHNICIAN: [address], [place] [address], Ph. Attender: Elvia Mccloud [facility] - [facility] 09/22/2020 12:00:00 AM EDT ATHE NA ([facility]) Elvia Mccloud, AUDIOVISUAL TECHNICIAN: [address], [place] [address], Ph. Attender: Elvia Mccloud [facility] - [facility] 09/22/2020 12:00:00 AM EDT ATHE NA ([facility]) Elvia Mccloud, AUDIOVISUAL TECHNICIAN: [address], [address], [place] [address], Ph. Attender: Elvia Mccloud [facility] - [facility] 09/22/2020 12:00:00 AM EDT ATHE NA ([facility]) Elvia Mccloud, AUDIOVISUAL TECHNICIAN: [address], [place] [address], Ph. Attender: Elvia Taylorthaisjoseph [facility] - [facility] 09/22/2020 12:00:00 AM EDT ATHE NA ([facility]) Elvia Mccloud, AUDIOVISUAL TECHNICIAN: [address], [place] [address], Ph. Attender: Elvia Mccloud [facility] - [facility] 09/22/2020 12:00:00 AM EDT ATHE NA ([facility]) Elvia Mccloud, AUDIOVISUAL TECHNICIAN: [address], [place] [address], Ph. Attender: Elvia Mccloud [facility] - [facility] 09/22/2020 12:00:00 AM EDT ATHE NA ([facility]) Elvia Mccloud, AUDIOVISUAL TECHNICIAN: [address], [place] [address], Ph. Attender: Elvia Mccloud [facility] - [facility] 09/22/2020 12:00:00 AM EDT ATHE NA ([facility]) Elvia Mccloud, AUDIOVISUAL TECHNICIAN: [address], [place] [address], Ph. Attender: Elvia Mccloud [facility] - [facility] 09/22/2020 12:00:00 AM EDT ATHE NA ([facility]) Elvia Mccloud, AUDIOVISUAL TECHNICIAN: [address], [place] [address], Ph. Attender: Elvia Mccloud [facility] - [facility] 09/22/2020 12:00:00 AM EDT ATHE NA ([facility]) Elvia Mccloud, AUDIOVISUAL TECHNICIAN: [address], [address], [place] [address], Ph. Attender: Elvia Mccloud [facility] - [facility] 09/22/2020 12:00:00 AM EDT ATHSamantha BECKHAM ([facility]) Elvia Mccloud, AUDIOVISUAL TECHNICIAN: [address], [address], [place] [address], Ph. Attender: Elvia Mccloud [facility] - [facility] 09/22/2020 12:00:00 AM EDT ATHSamantha BECKHAM ([facility]) Outpatient Attender: KRISTYN GEORGE MD [id number] 09/16/2020 12:00:00 AM EDT [facility] Unknown [address], [facility] [address] 09/13/2020 12:00:00 AM EDT [facility] ([facility]) Star Ramachandran MD: [address], [place] [address], Ph. Attender: Star HOFFMAN - [facility] 09/08/2020 12:00:00 AM EDT [place] ([facility]) Star Ramachandran MD: [address], [place] [address], Ph. Attender: Star HOFFMAN - [facility] 09/08/2020 12:00:00 AM EDT [place] ([facility]) Star Ramahcandran MD: [address], [place] [address], Ph. Attender: Star HOFFMAN - [facility] 09/08/2020 12:00:00 AM EDT [place] ([facility]) Star Ramachandran MD: [address], [address], [place] [address], Ph. Attender: Star Ramachandran MD CT - [facility] 09/08/2020 12:00:00 AM EDT [place] ([facility]) Star Ramachandran MD: [address], [address], [place] [address], Ph. Attender: Star Ramachandran MD CT - [facility] 09/08/2020 12:00:00 AM EDT [place] ([facility]) Star Ramachandran MD: [address]35 [address], [address], [place] [address], Ph. Attender: Star Ramachandran MD CT - [facility] 09/08/2020 12:00:00 AM EDT [place] ([facility]) Star Ramachandran MD: [address], [address], [place] [address], Ph. Attender: Star Ramachandran MD CT - [facility] 09/08/2020 12:00:00 AM EDT [place] ([facility]) Star Ramachandran MD: [address]63 [address], [address], [place] [address], Ph. Attender: Star HOFFMAN - [facility] 09/08/2020 12:00:00 AM EDT [place] ([facility]) Star Ramachandran MD: [address]75 [address], [address], [place] [address], Ph. Attender: Star HOFFMAN - [facility] 09/08/2020 12:00:00 AM EDT [place] ([facility]) Star Ramachandran MD: [address], [address], [place] [address], Ph. Attender: Star Ramachandran MD CT - [facility] 09/08/2020 12:00:00 AM EDT [place] ([facility]) Star Ramachandran MD: [address], [address], [place] [address], Ph. Attender: Star Ramachandran MD CT - [facility] 09/08/2020 12:00:00 AM EDT [place] ([facility]) Star Ramachandran MD: [address]807 [address], [address], [place] [address], Ph. Attender: Star Ramachandran MD CT - [facility] 09/08/2020 12:00:00 AM EDT [place] ([facility]) Star Ramachandran MD: [address], [address], [place] [address], Ph. Attender: Star Ramachandran MD CT - [facility] 09/08/2020 12:00:00 AM EDT [facility] ([facility]) Star Ramachandran MD: [address]28 [address], [address], [place] [address], Ph. [phone] Attender: Star Ramachandran MD CT - [facility] 09/05/2020 12:00:00 AM EDT [place] ([facility]) Star Ramachandran MD: [address]15 [address], [address], [place] [address], Ph. [phone] Attender: Star HOFFMAN - [facility] 09/05/2020 12:00:00 AM EDT [place] ([facility]) Star Ramachandran MD: [address]32 [address], [address], [place] [address], Ph. [phone] Attender: Star Ramachandran MD CT - [facility] 09/05/2020 12:00:00 AM EDT [place] ([facility]) Star Ramachandran MD: [address]95 [address], [address], [place] [address], Ph. [phone] Attender: Star Ramachandran MD CT - [facility] 09/05/2020 12:00:00 AM EDT [place] ([facility]) Star Ramachandran MD: [address]72 [address], [address], [place] [address], Ph. [phone] Attender: Star Ramachandran MD CT - [facility] 09/05/2020 12:00:00 AM EDT [place] ([facility]) Star Ramachandran MD: [address], [address], [place] [address], Ph. [phone] Attender: Star Ramachandran MD CT - [facility] 09/05/2020 12:00:00 AM EDT [place] ([facility]) Star Ramachandran MD: [address]29 [address], [address], [place] [address], Ph. [phone] Attender: Star Ramachandran MD CT - [facility] 09/05/2020 12:00:00 AM EDT [place] ([facility]) Star Ramachandran MD: [address], [address], [place] [address], Ph. [phone] Attender: Star Ramachandran MD CT - [facility] 09/05/2020 12:00:00 AM EDT [place] ([facility]) Star Ramachandran MD: [address]512 [address], [address], [place] [address], Ph. [phone] Attender: Star Ramachandran MD CT - [facility] 09/05/2020 12:00:00 AM EDT [place] ([facility]) Star Ramachandran MD: [address]39 [address], [place] [address], Ph. [phone] Attender: Star Ramachandran MD CT - [facility] 09/05/2020 12:00:00 AM EDT [place] ([facility]) Star Rmaachandran MD: [address]22 [address], [place] [address], Ph. [phone] Attender: Star HOFFMAN - [facility] 09/05/2020 12:00:00 AM EDT [place] ([facility]) Star Ramachandran MD: [address], [place] [address], Ph. [phone] Attender: Star HOFFMAN - [facility] 09/05/2020 12:00:00 AM EDT [place] ([facility]) Star Ramachandran MD: [address]67 [address], [place] [address], Ph. [phone] Attender: Star Ramachandran MD CT - [facility] 09/05/2020 12:00:00 AM EDT [place] ([facility]) Star Ramachandran MD: [address]255 [address], [place] [address], Ph. [phone] Attender: Star Ramachandran MD CT - [facility] 09/05/2020 12:00:00 AM EDT [place] ([facility]) Outpatient Attender: KRISTYN GEORGE MD 09/01/2020 12:00:00 AM EDT [facility], AUDIOVISUAL TECHNICIAN: [address], [place] [address], Ph. Attender: Elvia Mccloud [facility] - [facility] 08/26/2020 12:00:00 AM EDT ATHE NA ([facility]) Elvia Mccloud, AUDIOVISUAL TECHNICIAN: [address], [place] [address], Ph. Attender: Elvia Mccloud [facility] - [facility] 08/26/2020 12:00:00 AM EDT ATHE NA ([facility]) Elvia Mccloud, AUDIOVISUAL TECHNICIAN: [address], [facility] [place] [address], Ph. Attender: Elvia Mccloud [facility] - [facility] 08/26/2020 12:00:00 AM EDT ATHE NA ([facility]) Elvia Mccloud, AUDIOVISUAL TECHNICIAN: [address], [place] [address], Ph. Attender: Elvia Mccloud [facility] - [facility] 08/26/2020 12:00:00 AM EDT AT[facility] NA ([facility]) Elvia Mccloud, AUDIOVISUAL TECHNICIAN: [address], [place] [address], Ph. Attender: Elvia Mccloud [facility] - [facility] 08/26/2020 12:00:00 AM EDT ATHE NA ([facility]) Elvia Mccloud, AUDIOVISUAL TECHNICIAN: [address], [place] [address], Ph. Attender: Elvia Mccloud [facility] - [facility] 08/26/2020 12:00:00 AM EDT ATHE NA ([facility]) Elvia Mccloud, AUDIOVISUAL TECHNICIAN: [address], [place] [address], Ph. Attender: Elvia Mccloud [facility] - [facility] 08/26/2020 12:00:00 AM EDT ATHE NA ([facility]) Elvia Mccloud, AUDIOVISUAL TECHNICIAN: [address], [place] [address], Ph. Attender: Elvia Mccloud [facility] - [facility] 08/26/2020 12:00:00 AM EDT ATHE NA ([facility]) Elvia Mccloud, AUDIOVISUAL TECHNICIAN: [address], [place] [address], Ph. Attender: Elvia Mccloud [facility] - [facility] 08/26/2020 12:00:00 AM EDT ATHE NA ([facility]) Elvia Mccloud, AUDIOVISUAL TECHNICIAN: [address], [place] [address], Ph. Attender: Elvia Mccloud [facility] - [facility] 08/26/2020 12:00:00 AM EDT ATHE NA ([facility]) Elvia Mccloud, AUDIOVISUAL TECHNICIAN: [address], [place] [address], Ph. Attender: Elvia Mccloud [facility] - [facility] 08/26/2020 12:00:00 AM EDT ATHE NA ([facility]) Elvia Mccloud, AUDIOVISUAL TECHNICIAN: [address], [place] [address], Ph. Attender: Evlia Mccloud [facility] - [facility] 08/26/2020 12:00:00 AM EDT ATHE NA ([facility]) Elvia Mccloud, AUDIOVISUAL TECHNICIAN: [address], [place] [address], Ph. Attender: Elvia Mccloud [facility] - [facility] 08/26/2020 12:00:00 AM EDT ATHE NA ([facility]) Elvia Mccloud, AUDIOVISUAL TECHNICIAN: [address], [place] [address], Ph. Attender: Elvia Mccloud [facility] - [facility] 08/26/2020 12:00:00 AM EDT AT[facility] NA ([facility]) Elvia Mccloud, AUDIOVISUAL TECHNICIAN: [address], [place] [address], Ph. Attender: Elvia Mccloud [facility] - [facility] 08/26/2020 12:00:00 AM EDT AT[place] NA ([facility]) Unknown [address] [address] 08/22/2020 12:00:00 AM EDT [facility]CW[facility] Unknown [address] [address] 08/18/2020 12:00:00 AM EDT eCW1 ([facility]) Unknown [address], [place] [address] 08/18/2020 12:00:00 AM EDT eCW1 ([facility]) Star Ramachandran MD: [address]305 [address], [place] [address], Ph. Attender: Star HOFFMAN - [facility] 08/11/2020 12:00:00 AM EDT [place] ([facility]) Star Ramachandran MD: 07492 [address], [place] [address], Ph. Attender: Star HOFFMAN - [facility] 08/11/2020 12:00:00 AM EDT [place] ([facility]) Star Ramachandran MD: 68043 [address], [address], [place] [address], Ph. Attender: Star HOFFMAN - [facility] 08/11/2020 12:00:00 AM EDT [place] ([facility]) Star Ramachandran MD: 31487 [address], [address], [place] [address], Ph. Attender: Star HOFFMAN - [facility] 08/11/2020 12:00:00 AM EDT [place] ([facility]) Star Ramachandran MD: [address]3974 [address], [place] [address], Ph. Attender: Star HOFFMAN - [facility] 08/11/2020 12:00:00 AM EDT [place] ([facility]) Star Ramachandran MD: 60056 [address], [address], [place] [address], Ph. Attender: Star HOFFMAN - [facility] 08/11/2020 12:00:00 AM EDT [place] ([facility]) Star Ramachandran MD: 53678 [address], [address], [place] [address], Ph. Attender: Star Ramachandran MD CT - [facility] 08/11/2020 12:00:00 AM EDT [place] ([facility]) Star Ramachandran MD: 45013 [address], [address], [place] [address], Ph. Attender: Star HOFFMAN - [facility] 08/11/2020 12:00:00 AM EDT [place] ([facility]) Star Ramachandran MD: 60466 [address], [address], [place] [address], Ph. Attender: Star Ramachandran MD CT - [facility] 08/11/2020 12:00:00 AM EDT [place] ([facility]) Star Ramachandran MD: 97831 [address], [address], [place] [address], Ph. Attender: Star HOFFMAN - [facility] 08/11/2020 12:00:00 AM EDT [place] ([facility]) Star Ramachandran MD: [address]7030 [address], [place] [address], Ph. Attender: Star HOFFMAN - [facility] 08/11/2020 12:00:00 AM EDT [place] ([facility]) Star Ramachandran MD: 89463 [address], [address], [place] [address], Ph. Attender: Star HOFFMAN - [facility] 08/11/2020 12:00:00 AM EDT [place] ([facility]) Star Ramachandran MD: 83911 [address], [address], [place] [address], Ph. Attender: Star Ramachandran MD CT - [facility] 08/11/2020 12:00:00 AM EDT [place] ([facility]) Star Ramachandran MD: 71750 [address], [address], [place] [address], Ph. Attender: Star Ramachandran MD CT - [facility] 08/11/2020 12:00:00 AM EDT [place] ([facility]) Star Ramachandran MD: 60338 [address], [address], [place] [address], Ph. Attender: Star Ramachandran MD CT - [facility] 08/11/2020 12:00:00 AM EDT [place] ([facility]) Star Ramachandran MD: 87348 [address], [address], [place] [address], Ph. Attender: Star HOFFMAN - [facility] 08/11/2020 12:00:00 AM EDT [place] ([facility]) Star Ramachandran MD: 73508 [address], [address], [place] [address], Ph. [phone] Attender: Star HOFFMAN - [facility] 08/08/2020 12:00:00 AM EDT [place] ([facility]) Star Ramachandran MD: 86673 [address], [address], [place] [address], Ph. [phone] Attender: Star HOFFMAN - [facility] 08/08/2020 12:00:00 AM EDT [place] ([facility]) Star Ramachandran MD: 60794 [address], [address], [place] [address], Ph. [phone] Attender: Star Ramachandran MD CT - [facility] 08/08/2020 12:00:00 AM EDT [place] ([facility]) Star Ramachandran MD: [address]1102 [address], [address], [place] [address], Ph. [phone] Attender: Star Ramachandran MD CT - [facility] 08/08/2020 12:00:00 AM EDT [place] ([facility]) Star Ramachandran MD: 38888 [address], [address], [place] [address], Ph. [phone] Attender: Star Ramachandran MD CT - [facility] 08/08/2020 12:00:00 AM EDT [place] ([facility]) Star Ramachandran MD: 11809 [address], [address], [place] [address], Ph. [phone] Attender: Star Ramachandran MD CT - [facility] 08/08/2020 12:00:00 AM EDT [place] ([facility]) Star Ramachandran MD: 81563 [address], [address], [place] [address], Ph. [phone] Attender: Star Ramachandran MD CT - [facility] 08/08/2020 12:00:00 AM EDT [place] ([facility]) Star Ramachandran MD: 31163 [address], [address], [place] [address], Ph. [phone] Attender: Star Ramachandran MD CT - [facility] 08/08/2020 12:00:00 AM EDT [place] ([facility]) Star Ramachandran MD: 84228 [address], [address], [place] [address], Ph. [phone] Attender: Star HOFFMAN - [facility] 08/08/2020 12:00:00 AM EDT [place] ([facility]) Star Ramachandran MD: 59578 [address], [address], [place] [address], Ph. [phone] Attender: Star Ramachandran MD CT - [facility] 08/08/2020 12:00:00 AM EDT [place] [facility] Star Ramachandran MD: [address], [address], [place] [address], Ph. [phone] Attender: tSar Ramachandran MD CT - [facility] 08/08/2020 12:00:00 AM EDT [place] ([facility]) Star Ramachandran MD: [address], [address], [place] [address], Ph. [phone] Attender: Star Ramachandran MD CT - [facility] 08/08/2020 12:00:00 AM EDT [place] ([facility]) Star Ramachandran MD: [address], [address], [place] [address], Ph. [phone] Attender: Star Ramachandran MD CT - [facility] - [facility] 08/08/2020 12:00:00 AM EDT [place] ([facility]) Star Ramachandran MD: [address], [address], [place] [address], Ph. [phone] Attender: Star Ramachandran MD CT - [facility] - [facility] 08/08/2020 12:00:00 AM EDT [place] ([facility]) Star Ramachandran MD: [address], [address], [place] [address], Ph. [phone] Attender: Star Ramachandran MD CT - [facility] 08/08/2020 12:00:00 AM EDT [place] ([facility]) Star Ramachandran MD: [address], [place] [address], Ph. [phone] Attender: Star Ramachandran MD CT - [facility] 08/08/2020 12:00:00 AM EDT [place] ([facility]) Star Ramachandran MD: [address], [address], [place] [address], Ph. [phone] Attender: Star Ramachandran MD CT - [facility] 08/08/2020 12:00:00 AM EDT [place] ([facility]) Unknown [id number] [facility] [id number] 08/04/2020 12:00:00 AM EDT eCW1 [facility]) Unknown [id number] [facility] [address] 08/01/2020 12:00:00 AM EDT eCW1 ([facility]) Elvia Mccloud, AUDIOVISUAL TECHNICIAN: [address], [place] [address], Ph. Attender: Elvia Mccloud [facility] - [facility] 07/18/2020 12:00:00 AM EST ATHE NA ([facility]) Elvia Mccloud, AUDIOVISUAL TECHNICIAN: [address], [place] [address], Ph. Attender: Elvia Mccloud [facility] - [facility] 07/18/2020 12:00:00 AM EST ATHE NA ([facility]) Elvia Mccloud, AUDIOVISUAL TECHNICIAN: [address], [place] [address], Ph. Attender: Elvia Mccloud [facility] - [facility] 07/18/2020 12:00:00 AM EST ATHE NA ([facility]) Elvia Mccloud, AUDIOVISUAL TECHNICIAN: [address], [place] [address], Ph. Attender: Elvia Mccloud [facility] - [facility] 07/18/2020 12:00:00 AM EST ATHE NA ([facility]) Elvia Mccloud, AUDIOVISUAL TECHNICIAN: [address], [place] [address], Ph. Attender: Elvia Mccloud [facility] - [facility] 07/18/2020 12:00:00 AM EST ATHE NA ([facility]) Elvia Mccloud, AUDIOVISUAL TECHNICIAN: [address], [facility] [place] [address], Ph. Attender: Elvia Mccloud [facility] - [facility] 07/18/2020 12:00:00 AM EST ATHE NA ([facility]) Elvia Mccloud, AUDIOVISUAL TECHNICIAN: [address], [place] [address], Ph. Attender: Elvia Mccloud [facility] - [facility] 07/18/2020 12:00:00 AM EST ATHE NA ([facility]) Elvia Mccloud, AUDIOVISUAL TECHNICIAN: [address], [place] [address], Ph. Attender: Elvia Mccloud [facility] - [facility] 07/18/2020 12:00:00 AM EST ATHE NA ([facility]) Elvia Mccloud, AUDIOVISUAL TECHNICIAN: [address], [place] [address], Ph. Attender: Elvia Mccloud [facility] - [facility] 07/18/2020 12:00:00 AM EST ATHE NA ([facility]) Elvia Mccloud, AUDIOVISUAL TECHNICIAN: [address], [place] [address], Ph. Attender: Elvia Mccloud [facility] - [facility] 07/18/2020 12:00:00 AM EST ATHE NA ([facility]) Elvia Mccloud, AUDIOVISUAL TECHNICIAN: [address], [place] [address], Ph. Attender: Elvia Mccloud [facility] - [facility] 07/18/2020 12:00:00 AM EST ATHE NA ([facility]) Elvia Mccloud, AUDIOVISUAL TECHNICIAN: [address], [place] [address], Ph. Attender: Elvia Mccloud [facility] - [facility] 07/18/2020 12:00:00 AM EST ATHE NA ([facility]) Elvia Mccloud, AUDIOVISUAL TECHNICIAN: [address], [place] [address], Ph. Attender: Elvia Mccloud [facility] - [facility] 07/18/2020 12:00:00 AM EST ATHE NA ([facility]) Elvia Mccloud, AUDIOVISUAL TECHNICIAN: [address], [place] [address], Ph. Attender: Elvia Mccloud [facility] - [facility] 07/18/2020 12:00:00 AM EST ATHE NA ([facility]) Elvia Mccloud, AUDIOVISUAL TECHNICIAN: [address], [address], [place] [address], Ph. Attender: Elvia Mccloud [facility] - [facility] 07/18/2020 12:00:00 AM EST ATHE NA ([facility]) Elvia Mccloud, AUDIOVISUAL TECHNICIAN: [address], [address], [place] [address], Ph. Attender: Elvia Mccloud [facility] - [facility] 07/18/2020 12:00:00 AM EST ATHE NA ([facility]) Elvia Mccloud, AUDIOVISUAL TECHNICIAN: [address], [place] [address], Ph. Attender: Elvia Mccloud [facility] - [facility] 07/18/2020 12:00:00 AM EST ATHE NA ([facility]) Elvia Mccloud, AUDIOVISUAL TECHNICIAN: [address], [place] [address], Ph. Attender: Elvia Mccloud [facility] - [facility] 07/18/2020 12:00:00 AM EST ATHE NA ([facility]) Star Ramachandran MD: [address], [place] [address], Ph. Attender: Star Ramachandran MD CT - [facility] 06/29/2020 12:00:00 AM EST [place] ([facility]) Star Ramachandran MD: [address], [place] [address], Ph. Attender: Star Ramachandran MD CT - [facility] 06/29/2020 12:00:00 AM EST [place] ([facility]) Star Ramachandran MD: [address], [place] [address], Ph. Attender: Star Ramachandran MD CT - [facility] 06/29/2020 12:00:00 AM EST [place] ([facility]) Star Ramachandran MD: [address], [address], [place] [address], Ph. Attender: Star Ramachandran MD CT - [facility] 06/29/2020 12:00:00 AM EST [place] ([facility]) Star Ramachandran MD: [address], [place] [address], Ph. Attender: Star HOFFMAN - [facility] 06/29/2020 12:00:00 AM EST [place] ([facility]) Star Ramachandran MD: [address]68 [address], [place] [address], Ph. Attender: Star HOFFMAN - [facility] 06/29/2020 12:00:00 AM EST [place] ([facility]) Star Ramachandran MD: [address], [address], [place] [address], Ph. Attender: Star Ramachandran MD CT - [facility] 06/29/2020 12:00:00 AM EST [place] ([facility]) Star Ramachandran MD: [address], [place] [address], Ph. Attender: Star Ramachandran MD CT - [facility] 06/29/2020 12:00:00 AM EST [place] ([facility]) Star Ramachandran MD: [address], [place] [address], Ph. Attender: Star Ramachandran MD CT - [facility] 06/29/2020 12:00:00 AM EST [place] ([facility]) Star Ramachandran MD: [address], [address], [place] [address], Ph. Attender: Star HOFFMAN - [facility] 06/29/2020 12:00:00 AM EST [place] ([facility]) Star Ramachandran MD: [address]83 [address], [place] [address], Ph. Attender: Star HOFFMAN - [facility] 06/29/2020 12:00:00 AM EST [place] ([facility]) Star Ramachandran MD: [address]24 [address], [place] [address], Ph. Attender: Star HOFFMAN - [facility] 06/29/2020 12:00:00 AM EST [place] ([facility]) Star Ramachandran MD: [address], [address], [place] [address], Ph. Attender: Star HOFFMAN - [facility] 06/29/2020 12:00:00 AM EST [place] ([facility]) Star Ramachandran MD: [address]88 [address], [place] [address], Ph. Attender: Star Ramachandran MD CT - [facility] 06/29/2020 12:00:00 AM EST [place] ([facility]) Star Ramachandran MD: [address]255 [address], [place] [address], Ph. Attender: Star Ramachandran MD CT - [facility] 06/29/2020 12:00:00 AM EST [place] ([facility]) Star Ramachandran MD: [address]64 [address], [address], [place] [address], Ph. Attender: Star Ramachandran MD CT - [facility] 06/29/2020 12:00:00 AM EST [place] ([facility]) Star Ramachandran MD: [address], [place] [address], Ph. Attender: Star Ramachandran MD CT - [facility] 06/29/2020 12:00:00 AM EST [place] ([facility]) Star Ramachandran MD: [address], [place] [address], Ph. Attender: Star Ramachandran MD CT - [facility] 06/29/2020 12:00:00 AM EST [place] ([facility]) Star Ramachandran MD: [address]65 [address], [place] [address], Ph. Attender: Star Ramachandran MD CT - [facility] 06/29/2020 12:00:00 AM EST [place] ([facility]) Star Ramachandran MD: [address]148 [address], [place] [address], Ph. [phone] Attender: Star HOFFMAN - [facility] 06/24/2020 12:00:00 AM EST [place] ([facility]) Star Ramachandran MD: [address], [address], [place] [address], Ph. [phone] Attender: Star Ramachandran MD CT - [facility] 06/24/2020 12:00:00 AM EST [place] ([facility]) Star Ramachandran MD: [address], [address], [place] [address], Ph. [phone] Attender: Star Ramachandran MD CT - [facility] 06/24/2020 12:00:00 AM EST [place] ([facility]) Star Ramachandran MD: [address]16 [address], [address], [place] [address], Ph. [phone] Attender: Star Ramachandran MD CT - [facility] 06/24/2020 12:00:00 AM EST [place] ([facility]) Star Ramachandran MD: [address], [address], [place] [address], Ph. [phone] Attender: Star Ramachandran MD CT - [facility] 06/24/2020 12:00:00 AM EST [place] ([facility]) Star Ramachandran MD: [address]104 [address], [address], [place] [address], Ph. [phone] Attender: Star Ramachandran MD CT - [facility] 06/24/2020 12:00:00 AM EST [place] ([facility]) Star Ramachandran MD: 49279 [address], [address], [place] [address], Ph. [phone] Attender: Star Ramachandran MD CT - [facility] 06/24/2020 12:00:00 AM EST [place] ([facility]) Star Ramachandran MD: [address]16 [address], [address], [place] [address], Ph. [phone] Attender: Star Ramachandran MD CT - [facility] 06/24/2020 12:00:00 AM EST [place] ([facility]) Star Ramachandran MD: [address]7 [address], [address], [place] [address], Ph. [phone] Attender: Star Ramachandran MD CT - [facility] 06/24/2020 12:00:00 AM EST [place] ([facility]) Star Ramachandran MD: [address], [address], [place] [address], Ph. [phone] Attender: Star Ramachandran MD CT - [facility] 06/24/2020 12:00:00 AM EST [place] ([facility]) Star Ramachandran MD: 29354 [address], [address], [place] [address], Ph. [phone] Attender: Star Ramachandran MD CT - [facility] 06/24/2020 12:00:00 AM EST [place] ([facility]) Star Ramachandran MD: [address]454 [address], [address], [place] [address], Ph. [phone] Attender: Star Ramachandran MD CT - [facility] 06/24/2020 12:00:00 AM EST [place] ([facility]) Star Ramachandran MD: [address]88 [address], [address], [place] [address], Ph. [phone] Attender: Star Ramachandran MD CT - [facility] 06/24/2020 12:00:00 AM EST [place] ([facility]) Star Ramachandran MD: [address]690 [address], [address], [place] [address], Ph. [phone] Attender: Star HOFFMAN - [facility] 06/24/2020 12:00:00 AM EST [place] ([facility]) Star Ramachandran MD: [address]41 [address], [place] [address], Ph. [phone] Attender: Star Ramachandran MD CT - [facility] 06/24/2020 12:00:00 AM EST [place] ([facility]) Star Ramachandran MD: [address]76 [address], [place] [address], Ph. [phone] Attender: Star Ramachandran MD CT - [facility] 06/24/2020 12:00:00 AM EST [place] ([facility]) Star Ramachandran MD: [address], [place] [address], Ph. [phone] Attender: Star Ramachandran MD CT - [facility] 06/24/2020 12:00:00 AM EST [place] ([facility]) Star Ramachandran MD: [address], [place] [address], Ph. [phone] Attender: Star Ramachandran MD CT - [facility] 06/24/2020 12:00:00 AM EST [place] ([facility]) Star Ramachandran MD: [address], [place] [address], Ph. [phone] Attender: Star Ramachandran MD CT - [facility] 06/24/2020 12:00:00 AM EST [place] ([facility]) Star Ramachandran MD: [address]29 [address], [place] [address], Ph. [phone] Attender: Star HOFFMAN - [facility] 06/24/2020 12:00:00 AM EST [place] ([facility]) Unknown [address] [facility], [facility] [address] 06/23/2020 12:00:00 AM EST eCW1 ([facility]) Elvia Mccloud, AUDIOVISUAL TECHNICIAN: [address], [place] [address], Ph. Attender: Elvia Mccloud [facility] - [facility] 06/21/2020 12:00:00 AM EST ATHE NA ([facility]) Elvia Mccloud, AUDIOVISUAL TECHNICIAN: [address], [place] [address], Ph. Attender: Elvia Mccloud [facility] 06/21/2020 12:00:00 AM EST ATHE NA ([facility]) Elvia Mccloud, AUDIOVISUAL TECHNICIAN: [address], [place] [address], Ph. Attender: Elvia Mccloud [facility] 06/21/2020 12:00:00 AM EST ATHE NA ([facility]) Elvia Mccloud, AUDIOVISUAL TECHNICIAN: [address], [place] [address], Ph. Attender: Elvia Rogers [facility] - [facility] 06/21/2020 12:00:00 AM EST ATHE NA ([facility]) Elvia Mccloud, AUDIOVISUAL TECHNICIAN: [address]65 [address], [place] [address], Ph. Attender: Elvia Mccloud [facility] - [facility] 06/21/2020 12:00:00 AM EST ATHE NA ([facility]) Elvia Mccloud, AUDIOVISUAL TECHNICIAN: [address], [place] [address], Ph. Attender: Elvia Mccloud [facility] - [facility] 06/21/2020 12:00:00 AM EST ATHE NA ([facility]) Elvia Mccloud, AUDIOVISUAL TECHNICIAN: [address], [place] [address], Ph. Attender: Elvia Mccloud [facility] - [facility] 06/21/2020 12:00:00 AM EST ATHE NA ([facility]) Elvia Mccloud, AUDIOVISUAL TECHNICIAN: [address], [place] [address], Ph. Attender: Elvia Mccloud [facility] - [facility] 06/21/2020 12:00:00 AM EST ATHE NA ([facility]) Elvia Mccloud, AUDIOVISUAL TECHNICIAN: [address]93 [address], [place] [address], Ph. Attender: Elvia Mccloud [facility] - [facility] 06/21/2020 12:00:00 AM EST ATHE NA ([facility]) Elvia Mccloud, AUDIOVISUAL TECHNICIAN: [address], [place] [address], Ph. Attender: Elvia Mccloud [facility] - [facility] 06/21/2020 12:00:00 AM EST ATHE NA ([facility]) Elvia Mccloud, AUDIOVISUAL TECHNICIAN: [address]95 [address], [place] [address], Ph. Attender: Elvia Mccloud [facility] - [facility] 06/21/2020 12:00:00 AM EST ATHE NA ([facility]) Elvia Mccloud, AUDIOVISUAL TECHNICIAN: [address], [place] [address], Ph. Attender: Elvia Mccloud [facility] - [facility] 06/21/2020 12:00:00 AM EST ATHE NA ([facility]) Elvia Mccloud, AUDIOVISUAL TECHNICIAN: [address]34 [address], [place] [address], Ph. Attender: Elvia Mccloud [facility] - [facility] 06/21/2020 12:00:00 AM EST ATHE NA ([facility]) Elvia Mccloud, AUDIOVISUAL TECHNICIAN: [address]82 [address], [place] [address], Ph. Attender: Elvia Mccloud [facility] - [facility] 06/21/2020 12:00:00 AM EST ATHE NA ([facility]) Elvia Mccloud, AUDIOVISUAL TECHNICIAN: [address], [place] [address], Ph. Attender: Elvia Mccloud [facility] - [facility] 06/21/2020 12:00:00 AM EST ATHE NA ([facility]) Elvia Mccloud, AUDIOVISUAL TECHNICIAN: [address], [place] [address], Ph. Attender: Elvia Mccloud [facility] - [facility] 06/21/2020 12:00:00 AM EST ATHE NA ([facility]) Elvia Mccloud, AUDIOVISUAL TECHNICIAN: [address], [place] [address], Ph. Attender: Elvia Mccloud [facility] - [facility] 06/21/2020 12:00:00 AM EST ATHE NA ([facility]) Elvia Mccloud, AUDIOVISUAL TECHNICIAN: [address], [place] [address], Ph. Attender: Elvia Mccloud [facility] - [facility] 06/21/2020 12:00:00 AM EST ATHE NA ([facility]) Elvia Mccloud, AUDIOVISUAL TECHNICIAN: [address], [place] [address], Ph. Attender: Elvia Mccloud [facility] [facility] 06[facility]21/2020 12:00:00 AM EST ATHE NA ([facility]) Elvia Mccloud, AUDIOVISUAL TECHNICIAN: [address], [place] [address], Ph. Attender: Elvia Mccloud [facility] - [facility] 06/21/2020 12:00:00 AM EST ATHE NA ([facility]) Elvia Mccloud, AUDIOVISUAL TECHNICIAN: [address], [place] [address], Ph. Attender: Elvia Mccloud [facility] - [facility] 06/21/2020 12:00:00 AM EST ATHE NA ([facility]) Unknown [address] [address] 06/17/2020 12:00:00 AM EST eCW1 ([facility]) [place] [address] [address] 06/17/2020 12:00:00 AM EST eCW1 ([facility]) [place] [address] [place] [address] 06/17/2020 12:00:00 AM EST eCW1 ([facility]) Outpatient [address] [address] 06/17/2020 12:00:00 AM EST eCW1 ([facility]) Star Ramachandran MD: [address], [place], [place] [address], Ph. Attender: Star Ramachandran MD CT - [facility] 06/08/2020 12:00:00 AM EST SANTHOSH ([facility]) Star Ramachandran MD: [address], [place] [address], Ph. Attender: Star Ramachandran MD CT - [facility] 06/08/2020 12:00:00 AM EST SANTHOSH ([facility]) Star Ramachandran MD: [address], [place] [address], Ph. Attender: Star Ramachandran MD CT - [facility] 06/08/2020 12:00:00 AM EST SANTHOSH ([facility]) Star Ramachandran MD: [address], [place] [address], Ph. Attender: Star Ramachandran MD CT - [facility] 06/08/2020 12:00:00 AM EST SANTHOSH ([facility]) Star Ramachandran MD: [address]369 [address], [place] [address], Ph. Attender: Star Ramachandran MD CT - [facility] 06/08/2020 12:00:00 AM EST SANTHOSH ([facility]) Star Ramachandran MD: [address]74 [address], [address], [place] [address], Ph. Attender: Star Ramachandran MD CT - [facility] 06/08/2020 12:00:00 AM EST SANTHOSH ([facility]) Star Ramachandran MD: [address]66 [address], [address], [place] [address], Ph. Attender: Star Ramachandran MD CT - [facility] 06/08/2020 12:00:00 AM EST SANTHOSH ([facility]) Star Ramachandran MD: [address], [place] [address], Ph. Attender: Star Ramachandran MD CT - [facility] 06/08/2020 12:00:00 AM EST SANTHOSH ([facility]) Star Ramachandran MD: [address]42 [address], [address], [place] [address], Ph. Attender: Star Ramachandran MD CT - [facility] 06/08/2020 12:00:00 AM EST SANTHOSH ([facility]) Star Ramachandran MD: [address]23 [address], [address], [place] [address], Ph. Attender: Star Ramachandran MD CT - [facility] 06/08/2020 12:00:00 AM EST SANTHOSH ([facility]) Star Ramachandran MD: [address]43 [address], [address], [place] [address], Ph. Attender: Star HOFFMAN - [facility] 06/08/2020 12:00:00 AM EST SANTHOSH ([facility]) Star Ramachandran MD: [address]99 [address], [address], [place] [address], Ph. Attender: Star Ramachandran MD CT - [facility] 06/08/2020 12:00:00 AM EST SANTHOSH ([facility]) Star Ramachandran MD: [address]61 [address], [place] [address], Ph. Attender: Star Ramachandran MD CT - [facility] 06/08/2020 12:00:00 AM EST SANTHOSH ([facility]) Star Ramachandran MD: [address], [place] [address], Ph. Attender: Star Ramachandran MD CT - [facility] 06/08/2020 12:00:00 AM EST SANTHOSH ([facility]) Star Ramachandran MD: [address]025 [address], [place] [address], Ph. Attender: Star Ramachandran MD CT - [facility] 06/08/2020 12:00:00 AM EST SANTHOSH ([facility]) Star Ramachandran MD: [address]28 [address], [place] [address], Ph. Attender: Star Ramachandran MD CT - [facility] 06/08/2020 12:00:00 AM EST SANTHOSH ([facility]) Star Ramachandran MD: [address]38 [address], [place] [address], Ph. Attender: Star Ramachandran MD CT - [facility] 06/08/2020 12:00:00 AM EST SANTHOSH ([facility]) Star Ramachandran MD: [address]65 [address], [address], [place] [address], Ph. Attender: Star Ramachandran MD CT - [facility] 06/08/2020 12:00:00 AM EST SANTHOSH ([facility]) Star Ramachandran MD: [address]31 [address], [place] [address], Ph. Attender: Star Ramachandran MD CT - [facility] 06/08/2020 12:00:00 AM EST SANTHOSH ([facility]) Star Ramachandran MD: [address], [place] [address], Ph. Attender: Star Ramachandran MD CT - [facility] 06/08/2020 12:00:00 AM EST SANTHOSH ([facility]) Star Ramachandran MD: [address]44 [address], [place] [address], Ph. Attender: Star Ramachandran MD CT - [facility] 06/08/2020 12:00:00 AM EST SANTH[place]H ([facility]) Star Ramachandran MD: [address]281 [address], [place] [address], Ph. Attender: Star Ramachandran MD CT - [facility] 06/08/2020 12:00:00 AM EST SANTHOSH ([facility]) Star Ramachandran MD: [address]361 [address], [place] [address], Ph. [phone] Attender: Star Ramachandran MD CT - [facility] 06/03/2020 12:00:00 AM EST SANTH[place]H ([facility]) Star Ramachandran MD: [address]32 [address], [address], [place] [address], Ph. [phone] Attender: Star Ramachandrna MD CT - [facility] 06/03/2020 12:00:00 AM EST SANTHOSH ([facility]) Star Ramachandran MD: [address]133 [address], [address], [place] [address], Ph. [phone] Attender: Star Ramachandran MD CT - [facility] 06/03/2020 12:00:00 AM EST SANTHOSH ([facility]) Star Ramachandran MD: [address]697 [address], [address], [place] [address], Ph. [phone] Attender: Star Ramachandran MD CT - [facility] 06/03/2020 12:00:00 AM EST SANTHOSH ([facility]) Star Ramachandran MD: [address]55 [address], [address], [place] [address], Ph. [phone] Attender: Star Ramachandran MD CT - [facility] 06/03/2020 12:00:00 AM EST SANTHOSH ([facility]) Star Ramachandran MD: [address]17 [address], [address], [place] [address], Ph. [phone] Attender: Star Ramachandran MD CT - [facility] 06/03/2020 12:00:00 AM EST SANTHOSH ([facility]) Star Ramachandran MD: [address]34 [address], [address], [place] [address], Ph. [phone] Attender: Star Ramachandran MD CT - [facility] 06/03/2020 12:00:00 AM EST SANTHOSH ([facility]) Star Ramachandran MD: [address]148 [address], [address], [place] [address], Ph. [phone] Attender: Star Ramachandran MD CT - [facility] 06/03/2020 12:00:00 AM EST SANTHOSH ([facility]) Star Ramachandran MD: [address]315 [address], [address], [place] [address], Ph. [phone] Attender: Star Ramachandran MD CT - [facility] 06/03/2020 12:00:00 AM EST SANTHOSH ([facility]) Star Ramachandran MD: [address]00 [address], [address], [place] [address], Ph. [phone] Attender: Star HOFFMAN - [facility] 06/03/2020 12:00:00 AM EST SANTHOSH ([facility]) Star Ramachandran MD: [address]496 [address], [address], [place] [address], Ph. [phone] Attender: Star Ramachandran MD CT - [facility] 06/03/2020 12:00:00 AM EST SANTHOSH ([facility]) Star Ramachandran MD: [address]48 [address], [address], [place] [address], Ph. [phone] Attender: Star Ramachandran MD CT - [facility] 06/03/2020 12:00:00 AM EST SANTHOSH ([facility]) Star Ramachandran MD: [address]4478 [address], [address], [place] [address], Ph. [phone] Attender: Star Ramachandran MD CT - [facility] 06/03/2020 12:00:00 AM EST SANTHOSH ([facility]) Star Ramachandran MD: [address]46 [address], [address], [place] [address], Ph. [phone] Attender: Star HOFFMAN - [facility] 06/03/2020 12:00:00 AM EST SANTHOSH ([facility]) Star Ramachandran MD: [address]003 [address], [place] [address], Ph. [phone] Attender: Star Ramachandran MD CT - [facility] 06/03/2020 12:00:00 AM EST SANTHOSH ([facility]) Star Ramachandran MD: [address]02 [address], [place] [address], Ph. [phone] Attender: Star Ramachandran MD CT - [facility] 06/03/2020 12:00:00 AM EST SANTHOSH ([facility]) Star Ramachandran MD: [address]207 [address], [place] [address], Ph. [phone] Attender: Star Ramachandran MD CT - [facility] 06/03/2020 12:00:00 AM EST SANTHOSH ([facility]) Star Ramachandran MD: [address]246 [address], [place] [address], Ph. [phone] Attender: Star Ramachandran MD CT - [facility] 06/03/2020 12:00:00 AM EST SANTHOSH ([facility]) Star Ramachandran MD: [address]996 [address], [place] [address], Ph. [phone] Attender: Star Ramachandran MD CT - [facility] 06/03/2020 12:00:00 AM EST SANTHOSH ([facility]) Star Ramachandran MD: [address]143 [address], [place] [address], Ph. [phone] Attender: Star Ramachandran MD CT - [facility] 06/03/2020 12:00:00 AM EST SANTHOSH ([facility]) Star Ramachandran MD: 41403 [address], [address], [place] [address], Ph. [phone] Attender: Star Ramachandran MD CT - [facility] 06/03/2020 12:00:00 AM EST SANTHOSH ([facility]) Star Ramachandran MD: [address]85 [address], [place] [address], Ph. [phone] Attender: Star Ramachandran MD CT - [facility] 06/03/2020 12:00:00 AM EST SANTHOSH ([facility]) Star Ramachandran MD: [address]702 [address], [place] [address], Ph. [phone] Attender: Star Ramachandran MD CT - [facility] 06/03/2020 12:00:00 AM EST SANTHOSH ([facility]) Elvia Mccloud, AUDIOVISUAL TECHNICIAN: [address], [place] [address], Ph. Attender: Elvia Mccloud [facility] - [facility] 05/24/2020 12:00:00 AM EST ATHE NA ([facility]) Elvia Mccloud, AUDIOVISUAL TECHNICIAN: [address], [place] [address], Ph. Attender: Elvia Mccloud [facility] - [facility] 05/24/2020 12:00:00 AM EST ATHE NA ([facility]) Elvia Mccloud, AUDIOVISUAL TECHNICIAN: [address], [place] [address], Ph. Attender: Elvia Mccloud [facility] - [facility] 05/24/2020 12:00:00 AM EST ATHE NA ([facility]) Elvia Mccloud, AUDIOVISUAL TECHNICIAN: [address], [place] [address], Ph. Attender: Elvia Mccloud [facility] 05/24/2020 12:00:00 AM EST ATHE NA ([facility]) Elvia Mccloud, AUDIOVISUAL TECHNICIAN: [address], [place] [address], Ph. Attender: Elvia Mccloud [facility] 05/24/2020 12:00:00 AM EST ATHE NA ([facility]) Elvia Mccloud, AUDIOVISUAL TECHNICIAN: [address], [facility] [place] [address], Ph. Attender: Elvia Mccloud [facility] 05/24/2020 12:00:00 AM EST ATHE NA ([facility]) Elvia Mccloud, AUDIOVISUAL TECHNICIAN: [address], [place] [address], Ph. Attender: Elvia Mccloud [facility] 05/24/2020 12:00:00 AM EST ATHE NA ([facility]) Elvia Mccloud, AUDIOVISUAL TECHNICIAN: [address], [place] [address], Ph. Attender: Elvia Mccloud [facility] 05/24/2020 12:00:00 AM EST ATHE NA ([facility]) Elvia Mccloud, AUDIOVISUAL TECHNICIAN: [address], [place] [address], Ph. Attender: Elvia Mccloud [facility] - [facility] 05/24/2020 12:00:00 AM EST ATHE NA ([facility]) Elvia Mccloud, AUDIOVISUAL TECHNICIAN: [address], [place] [address], Ph. Attender: Elvia Mccloud [facility] - [facility] 05/24/2020 12:00:00 AM EST ATHE NA ([facility]) Elvia Mccloud, AUDIOVISUAL TECHNICIAN: [address], [place] [address], Ph. Attender: Elvia Mccloud [facility] - [facility] 05/24/2020 12:00:00 AM EST ATHE NA ([facility]) Elvia Mccloud, AUDIOVISUAL TECHNICIAN: [address], [place] [address], Ph. Attender: Elvia Mccloud [facility] - [facility] 05/24/2020 12:00:00 AM EST ATHE NA ([facility]) Elvia Mccloud, AUDIOVISUAL TECHNICIAN: [address], [place] [address], Ph. Attender: Elvia Mccloud [facility] - [facility] 05/24/2020 12:00:00 AM EST ATHE NA ([facility]) Elvia Mccloud, AUDIOVISUAL TECHNICIAN: [address], [place] [address], Ph. Attender: Elvia Mccloud [facility] - [facility] 05/24/2020 12:00:00 AM EST ATHE NA ([facility]) Elvia Mccloud, AUDIOVISUAL TECHNICIAN: [address], [place] [address], Ph. Attender: Elvia Mccloud [facility] - [facility] 05/24/2020 12:00:00 AM EST ATHE NA ([facility]) Elvia Mccloud, AUDIOVISUAL TECHNICIAN: [address], [place] [address], Ph. Attender: Elvia Mccloud [facility] - [facility] 05/24/2020 12:00:00 AM EST ATHE NA ([facility]) Elvia Mccloud, AUDIOVISUAL TECHNICIAN: [address], [place] [address], Ph. Attender: Elvia Mccloud [facility] - [facility] 05/24/2020 12:00:00 AM EST ATHE NA ([facility]) Elvia Mccloud, AUDIOVISUAL TECHNICIAN: [address], [place] [address], Ph. Attender: Elvia Mccloud [facility] - [facility] 05/24/2020 12:00:00 AM EST ATHE NA ([facility]) Elvia Mccloud, AUDIOVISUAL TECHNICIAN: [address]39 [address], [address], [place] [address], Ph. Attender: Elvia Mccloud [facility] - [facility] 05/24/2020 12:00:00 AM EST ATHE NA ([facility]) Elvia Mccloud, AUDIOVISUAL TECHNICIAN: [address], [place] [address], Ph. Attender: Elvia Mccloud [facility] - [facility] 05/24/2020 12:00:00 AM EST ATHE NA ([facility]) Elvia Mccloud, AUDIOVISUAL TECHNICIAN: [address], [place] [address], Ph. Attender: Elvia Taylorthaisjoseph [facility] - [facility] 05/24/2020 12:00:00 AM EST ATHE NA ([facility]) Elvia Mccloud, AUDIOVISUAL TECHNICIAN: [address], [place] [address], Ph. Attender: Elvia Mccloud [facility] - [facility] 05/24/2020 12:00:00 AM EST ATHE NA ([facility]) Elvia Marcojazmine Ashleyjoseph, AUDIOVISUAL TECHNICIAN: [address], [place] [address], Ph. Attender: Elvia Mccloud [facility] 05/24/2020 12:00:00 AM EST ATHE NA ([facility]) Elvia Mccloud, AUDIOVISUAL TECHNICIAN: [address]74 [address], [place] [address], Ph. Attender: Elvia Rogers [facility] - [facility] 05/24/2020 12:00:00 AM EST ATHE NA ([facility]) Outpatient [address] [place] [address] 05/20/2020 12:00:00 AM EST eCW1 ([facility]) Elvia Mccloud, AUDIOVISUAL TECHNICIAN: [address], [place] [address], Ph. Attender: Elvia Mccloud [facility] 04/26/2020 12:00:00 AM EST ATHE NA ([facility]) Elvia Mccloud, AUDIOVISUAL TECHNICIAN: [address], [address], [place] [address], Ph. Attender: Elvia Mccloud [facility] - [facility] 04/26/2020 12:00:00 AM EST ATHE NA ([facility]) Elvia Mccloud, AUDIOVISUAL TECHNICIAN: [address], [address], [place] [address], Ph. Attender: Elvia Mccloud [facility] - [facility] 04/26/2020 12:00:00 AM EST ATHE NA ([facility]) Elvia Mccloud, AUDIOVISUAL TECHNICIAN: [address]649 [address], [place] [address], Ph. Attender: Elvia Ramirezjoseph [facility] - [facility] 04/26/2020 12:00:00 AM EST ATHE NA ([facility]) Elvia Mccloud, AUDIOVISUAL TECHNICIAN: [address]60 [address], [place] [address], Ph. Attender: Elvia Mccloud [facility] - [facility] 04/26/2020 12:00:00 AM EST ATHE NA ([facility]) Elvia Mccloud, AUDIOVISUAL TECHNICIAN: [address], [place] [address], Ph. Attender: Elvia Mccloud [facility] - [facility] 04/26/2020 12:00:00 AM EST ATHE NA ([facility]) Elvia Mccloud, AUDIOVISUAL TECHNICIAN: [address]69 [address], [place] [address], Ph. Attender: Elvia Mccloud [facility] - [facility] 04/26/2020 12:00:00 AM EST ATHE NA ([facility]) Elvia Mccloud, AUDIOVISUAL TECHNICIAN: [address], [place] [address], Ph. Attender: Elvia Mccloud [facility] - [facility] 04/26/2020 12:00:00 AM EST ATHE NA ([facility]) Elvia Mccloud, AUDIOVISUAL TECHNICIAN: [address], [address], [place] [address], Ph. Attender: Elvia Mccloud [facility] 04/26/2020 12:00:00 AM EST ATHE NA ([facility]) Elvia Mccloud, AUDIOVISUAL TECHNICIAN: [address], [place] [address], Ph. Attender: Elvia Mccloud [facility] 04/26/2020 12:00:00 AM EST ATHE NA ([facility]) Elvia Mccloud, AUDIOVISUAL TECHNICIAN: [address], [place] [address], Ph. Attender: Elvia Mccloud [facility] 04/26/2020 12:00:00 AM EST ATHE NA ([facility]) Elvia Mccloud, AUDIOVISUAL TECHNICIAN: [address], [address], [place] [address], Ph. Attender: Elvia Mccloud [facility] - [facility] 04/26/2020 12:00:00 AM EST ATHE NA ([facility]) Elvia Mccloud, AUDIOVISUAL TECHNICIAN: [address], [address], [place] [address], Ph. Attender: Elvia Mccloud [facility] - [facility] 04/26/2020 12:00:00 AM EST ATHE NA ([facility]) Elvia Mccloud, AUDIOVISUAL TECHNICIAN: [address], [place] [address], Ph. Attender: Elvia Mccloud [facility] - [facility] 04/26/2020 12:00:00 AM EST ATHE NA ([facility]) Elvia Mccloud, AUDIOVISUAL TECHNICIAN: [address], [place] [address], Ph. Attender: Elvia Mccloud [facility] - [facility] 04/26/2020 12:00:00 AM EST ATHE NA ([facility]) Elvia Mccloud, AUDIOVISUAL TECHNICIAN: [address], [place] [address], Ph. Attender: Elvia Mccloud [facility] - [facility] 04/26/2020 12:00:00 AM EST ATHE NA ([facility]) Elvia Mccloud, AUDIOVISUAL TECHNICIAN: [address], [place] [address], Ph. Attender: Elvia Mccloud [facility] - [facility] 04/26/2020 12:00:00 AM EST ATHE NA ([facility]) Elvia Mccloud, AUDIOVISUAL TECHNICIAN: [address], [place] [address], Ph. Attender: Elvia Mccloud [facility] - [facility] 04/26/2020 12:00:00 AM EST ATHE NA ([facility]) Elvia Mccloud, AUDIOVISUAL TECHNICIAN: [address], [address], [place] [address], Ph. Attender: Elvia Mccloud [facility] - [facility] 04/26/2020 12:00:00 AM EST ATHE NA ([facility]) Elvia Mccloud, AUDIOVISUAL TECHNICIAN: [address], [address], [place] [address], Ph. Attender: Elvia Mccloud [facility] - [facility] 04/26/2020 12:00:00 AM EST ATHE NA ([facility]) Elvia Mccloud, AUDIOVISUAL TECHNICIAN: [address], [place] [address], Ph. Attender: Elvia Mccloud [facility] - [facility] 04/26/2020 12:00:00 AM EST ATHE NA ([facility]) Elvia Mccloud, AUDIOVISUAL TECHNICIAN: [address], [address], [place] [address], Ph. Attender: Elvia Mccloud [facility] - [facility] 04/26/2020 12:00:00 AM EST ATHE NA ([facility]) Elvia Mccloud, AUDIOVISUAL TECHNICIAN: [address], [address], [place] [address], Ph. Attender: Elvia Mccloud [facility] - [facility] 04/26/2020 12:00:00 AM EST ATHE NA ([facility]) Elvia Mccloud, AUDIOVISUAL TECHNICIAN: [address], [place] [address], Ph. Attender: Elviasamantha Ramirezjoseph [facility] 04/26/2020 12:00:00 AM EST ATHE NA ([facility]) Elvia Mccloud, AUDIOVISUAL TECHNICIAN: [address], [place] [address], Ph. Attender: Elvia Mccloud [facility] - [facility] 04/26/2020 12:00:00 AM EST ATHE NA ([facility]) Unknown [address] [facility] [id number] 04/04/2020 12:00:00 AM EST eCW1 ([facility]) Unknown [address] [facility] [id number] 04/01/2020 12:00:00 AM EST [facility]CW1 [facility] Outpatient [address] [facility] [id number] 03/28/2020 12:00:00 AM EST eCW1 ([facility]) Unknown [address] [facility] [id number] 03/28/2020 12:00:00 AM EST eCW1 [facility]) Outpatient Referrer: KRISTYN GEORGE MD 03/24/2020 12:00:00 AM [facility] Outpatient Attender: KRISTYN GEORGE MDReferrer: Saima LacyCatracho [id number] 02/23/2020 12:00:00 AM EDT - 02/23/2020 11:46:57 AM ED T Gastro- esophageal reflux disease without esophagitis [facility] Gastro-esophageal reflux disease without esophagitis Elvia Ramirezjoseph, AUDIOVISUAL TECHNICIAN: [address], [place] [address], Ph. Attender: Elvia Mccloud [facility] 02/23/2020 12:00:00 AM EDT ATHSamantha NA ([facility]) Elvia Guardadobobsonia Rogers, AUDIOVISUAL TECHNICIAN: [address], [place] [address], Ph. Attender: Elvia Mccloud [facility] - [facility] 02/23/2020 12:00:00 AM EDT ATHE NA ([facility]) Elvia Mccloud, AUDIOVISUAL TECHNICIAN: [address], [place] [address], Ph. Attender: Elvia Mccloud [facility] - [facility] 02/23/2020 12:00:00 AM EDT ATHE NA ([facility]) Elvia Mccloud, AUDIOVISUAL TECHNICIAN: [address], [place] [address], Ph. Attender: Elvia Mccloud [facility] 02/23/2020 12:00:00 AM EDT ATHE NA ([facility]) Elvia Mccloud, AUDIOVISUAL TECHNICIAN: [address], [place] [address], Ph. Attender: Elvia Mccloud [facility] 02/23/2020 12:00:00 AM EDT ATHE NA ([facility]) Elvia Mccloud, AUDIOVISUAL TECHNICIAN: [address], [place] [address], Ph. Attender: Elvia Mccloud [facility] - [facility] 02/23/2020 12:00:00 AM EDT ATHE NA ([facility]) Elvia Mccloud, AUDIOVISUAL TECHNICIAN: [address], [place] [address], Ph. Attender: Elvia Mccloud [facility] 02/23/2020 12:00:00 AM EDT ATHE NA ([facility]) Elvia Mccloud, AUDIOVISUAL TECHNICIAN: [address], [place] [address], Ph. Attender: Elvia Mccloud [facility] 02/23/2020 12:00:00 AM EDT ATHE NA ([facility]) Elvia Mccloud, AUDIOVISUAL TECHNICIAN: [address], [address], [place] [address], Ph. Attender: Elvia Mccloud [facility] 02/23/2020 12:00:00 AM EDT ATHE NA ([facility]) Elvia Mccloud, AUDIOVISUAL TECHNICIAN: [address], [place] [address], Ph. Attender: Elvia Mccloud [facility] 02/23/2020 12:00:00 AM EDT ATHE NA ([facility]) Elvia Mccloud, AUDIOVISUAL TECHNICIAN: [address], [place] [address], Ph. Attender: Elvia Mccloud [facility] 02/23/2020 12:00:00 AM EDT ATHE NA ([facility]) Elvia Mccloud, AUDIOVISUAL TECHNICIAN: [address], [place] [address], Ph. Attender: Elvia Mccloud [facility] 02/23/2020 12:00:00 AM EDT ATHE NA ([facility]) Elvia Mccloud, AUDIOVISUAL TECHNICIAN: [address], [place] [address], Ph. Attender: Elvia Mccloud [facility] - [facility] 02/23/2020 12:00:00 AM EDT ATHE NA ([facility]) Elvia Mccloud, AUDIOVISUAL TECHNICIAN: [address], [place] [address], Ph. Attender: Elvia Mccloud [facility] - [facility] 02/23/2020 12:00:00 AM EDT ATHE NA ([facility]) Elvia Mccloud, AUDIOVISUAL TECHNICIAN: [address], [place] [address], Ph. Attender: Elvia Mccloud [facility] - [facility] 02/23/2020 12:00:00 AM EDT ATHE NA ([facility]) Elvia Mccloud, AUDIOVISUAL TECHNICIAN: [address], [place] [address], Ph. Attender: Elvia Mccloud [facility] - [facility] 02/23/2020 12:00:00 AM EDT ATHE NA ([facility]) Elvia Mccloud, AUDIOVISUAL TECHNICIAN: [address], [place] [address], Ph. Attender: Elvia Mccloud [facility] - [facility] 02/23/2020 12:00:00 AM EDT ATHE NA ([facility]) Elvia Mccloud, AUDIOVISUAL TECHNICIAN: [address], [place] [address], Ph. Attender: Elvia Mccloud [facility] - [facility] 02/23/2020 12:00:00 AM EDT ATHE NA ([facility]) Elvia Mccloud, AUDIOVISUAL TECHNICIAN: [address], [address], [place] [address], Ph. Attender: Elvia Mccloud [facility] - [facility] 02/23/2020 12:00:00 AM EDT ATHE NA ([facility]) Elvia Mccloud, AUDIOVISUAL TECHNICIAN: [address], [address], [place] [address], Ph. Attender: Elvia cMcloud [facility] - [facility] 02/23/2020 12:00:00 AM EDT ATHSamantha NA ([facility]) Elvia Mccloud, AUDIOVISUAL TECHNICIAN: [address], [place] [address], Ph. Attender: Elvia Mccloud [facility] - [facility] 02/23/2020 12:00:00 AM EDT ATHE NA ([facility]) Elvia Mccloud, AUDIOVISUAL TECHNICIAN: [address], [address], [place] [address], Ph. Attender: Elvia Mccloud [facility] 02/23/2020 12:00:00 AM EDT ATHE NA ([facility]) Elvia Mccloud, AUDIOVISUAL TECHNICIAN: [address], [address], [place] [address], Ph. Attender: Elvia Mccloud [facility] - [facility] 02/23/2020 12:00:00 AM EDT ATHSamantha NA ([facility]) Elvia Mccloud, AUDIOVISUAL TECHNICIAN: [address], [address], [place] [address], Ph. Attender: Elviazena Mccloud [facility] - [facility] 02/23/2020 12:00:00 AM EDT ATHE NA ([facility]) Unknown [address] [facility] [address] 02/23/2020 12:00:00 AM EDT eCW1 ([facility]) Elvia Mccloud, AUDIOVISUAL TECHNICIAN: [address], [place] [address], Ph. Attender: Elvia Mccloud [facility] - [facility] 02/23/2020 12:00:00 AM EDT ATHE NA ([facility]) Elvia Guardadobobsonia Rogers, AUDIOVISUAL TECHNICIAN: [address], [place] [address], Ph. Attender: Elvia Mccloud [facility] 02/23/2020 12:00:00 AM EDT ATHE NA ([facility]) Unknown [address] [facility] [address] 02/22/2020 12:00:00 AM EDT eCW1 ([facility]) Elvia Mccloud, AUDIOVISUAL TECHNICIAN: [address], [place] [address], Ph. Attender: Elvia Mccloud [facility] 01/14/2020 12:00:00 AM EDT ATHE NA ([facility]) Elviasamantha Aguirre Taylorstephanie, AUDIOVISUAL TECHNICIAN: [address], [place] [address], Ph. Attender: Elvia Mccloud [facility] 01/14/2020 12:00:00 AM EDT ATHE NA ([facility]) Elvia Mccloud, AUDIOVISUAL TECHNICIAN: [address], [place] [address], Ph. Attender: Elvia Mccloud [facility] 01/14/2020 12:00:00 AM EDT ATHE NA ([facility]) Elvia Mccloud, AUDIOVISUAL TECHNICIAN: [address], [place] [address], Ph. Attender: Elvia Mccloud [facility] 01/14/2020 12:00:00 AM EDT ATHE NA ([facility]) Elvia Mccloud, AUDIOVISUAL TECHNICIAN: [address], [place] [address], Ph. Attender: Elvia Mccloud [facility] 01/14/2020 12:00:00 AM EDT ATHE NA ([facility]) Elvia Mccloud, AUDIOVISUAL TECHNICIAN: [address], [address], [place] [address], Ph. Attender: Elvia Mccloud [facility] 01/14/2020 12:00:00 AM EDT ATHE NA ([facility]) Elvia Millssonia Vazquezthaisjoseph, AUDIOVISUAL TECHNICIAN: [address], [place] [address], Ph. Attender: Elvia Mccloud [facility] 01/14/2020 12:00:00 AM EDT ATHE NA ([facility]) Elvia Aguirre Taylorstephanie, AUDIOVISUAL TECHNICIAN: [address], [place] [address], Ph. Attender: Elvia Ramirezjoseph [facility] - [facility] 01/14/2020 12:00:00 AM EDT ATHE NA ([facility]) Elvia Mccloud, AUDIOVISUAL TECHNICIAN: [address], [place] [address], Ph. Attender: Elvia Mccloud [facility] 01/14/2020 12:00:00 AM EDT ATHE NA ([facility]) Elvia Mccloud, AUDIOVISUAL TECHNICIAN: [address], [address], [place] [address], Ph. Attender: Elvia Mccloud [facility] 01/14/2020 12:00:00 AM EDT ATHE NA ([facility]) Elvia Mccloud, AUDIOVISUAL TECHNICIAN: [address], [place] [address], Ph. Attender: Elviasamantha Ramirezjoseph [facility] 01/14/2020 12:00:00 AM EDT ATHE NA ([facility]) Elvia Mccloud, AUDIOVISUAL TECHNICIAN: [address], [place] [address], Ph. Attender: Elvia Taylorhtaisjoseph [facility] 01/14/2020 12:00:00 AM EDT ATHE NA ([facility]) Elvia Mccloud, AUDIOVISUAL TECHNICIAN: [address], [address], [place] [address], Ph. Attender: Elviasamantha Ramirezjoseph [facility] 01/14/2020 12:00:00 AM EDT ATHE NA ([facility]) Elvia Mccloud, AUDIOVISUAL TECHNICIAN: [address], [address], [place] [address], Ph. Attender: Elvia Mccloud [facility] 01/14/2020 12:00:00 AM EDT ATHE NA ([facility]) Elvia Mccloud, AUDIOVISUAL TECHNICIAN: [address], [place] [address], Ph. Attender: Elvia Mccloud [facility] 01/14/2020 12:00:00 AM EDT ATHE NA ([facility]) Elvia Mccloud, AUDIOVISUAL TECHNICIAN: [address], [place] [address], Ph. Attender: Elvia Mccloud [facility] 01/14/2020 12:00:00 AM EDT ATHE NA ([facility]) Elvia Mccloud, AUDIOVISUAL TECHNICIAN: [address], [place] [address], Ph. Attender: Elvia Mccloud [facility] 01/14/2020 12:00:00 AM EDT ATHE NA ([facility]) Elvia Mccloud, AUDIOVISUAL TECHNICIAN: [address], [place] [address], Ph. Attender: Elvia Mccloud [facility] 01/14/2020 12:00:00 AM EDT ATHE NA ([facility]) Elvia Mccloud, AUDIOVISUAL TECHNICIAN: [address], [place] [address], Ph. Attender: Elvia Mccloud [facility] 01/14/2020 12:00:00 AM EDT ATHE NA ([facility]) Elvia Marcofilomenasonia Mccloud, AUDIOVISUAL TECHNICIAN: [address], [place] [address], Ph. Attender: Elvia Mccloud [facility] 01/14/2020 12:00:00 AM EDT ATHE NA ([facility]) Elvia Mccloud, AUDIOVISUAL TECHNICIAN: [address], [place] [address], Ph. Attender: Elvia Mccloud [facility] 01/14/2020 12:00:00 AM EDT ATHE NA ([facility]) Elvia Mccloud, AUDIOVISUAL TECHNICIAN: [address], [place] [address], Ph. Attender: Elvia Mccloud [facility] 01/14/2020 12:00:00 AM EDT ATHE NA ([facility]) Elvia Mccloud, AUDIOVISUAL TECHNICIAN: [address], [place] [address], Ph. Attender: Elvia Mccloud [facility] 01/14/2020 12:00:00 AM EDT ATHE NA ([facility]) Elvia Mccloud, AUDIOVISUAL TECHNICIAN: [address], [place] [address], Ph. Attender: Elvia Mccloud [facility] 01/14/2020 12:00:00 AM EDT ATHE NA ([facility]) Elvia Mccloud, AUDIOVISUAL TECHNICIAN: [address], [place] [address], Ph. Attender: Elvia Mccloud [facility] 01/14/2020 12:00:00 AM EDT ATHE NA ([facility]) Elvia Mccloud, AUDIOVISUAL TECHNICIAN: [address], [place] [address], Ph. Attender: Elvia Mccloud [facility] 01/14/2020 12:00:00 AM EDT ATHE NA ([facility]) Elvia Mccloud, AUDIOVISUAL TECHNICIAN: [address], [place] [address], Ph. Attender: Elvia Mccloud [facility] 01/14/2020 12:00:00 AM EDT ATHE NA ([facility]) Immunizations Vaccine Date Status Description Data Source(s) COVID-19 VACCINE Gerald 10/12/2020 12:00:00 AM EDT completed [facility] Vaccine Series Complete: YESThis Data wa s Submitted to [facility] Via [employer]. influenza, recombinant, quadrIvalent,injectable, prese rvative free 03/28/2020 04:22:00 PM EST completed eCW1 ([facility]) influenza, recombinant, quadrIvalent,injectable, prese rvative free 03/28/2020 04:22:00 PM EST completed eCW1 ([facility]) influenza, recombinant, quadrIvalent,injectable, prese rvative free 03/28/2020 04:22:00 PM EST completed eCW1 ([facility]) influenza, recombinant, quadrIvalent,injectable, prese rvative free 03/28/2020 04:22:00 PM EST completed eCW1 ([facility]) influenza, recombinant, quadrIvalent,injectable, prese rvative free 03/28/2020 04:22:00 PM EST completed eCW1 ([facility]) influenza, recombinant, quadrIvalent,injectable, prese rvative free 03/28/2020 04:22:00 PM EST completed eCW1 ([facility]) influenza, recombinant, quadrIvalent,injectable, prese rvative free 03/28/2020 04:22:00 PM EST completed eCW1 ([facility]) influenza, recombinant, quadrIvalent,injectable, prese rvative free 03/28/2020 04:22:00 PM EST completed eCW1 ([facility]) influenza, recombinant, quadrIvalent,injectable, prese rvative free 03/28/2020 04:22:00 PM EST completed eCW1 ([facility]) influenza, recombinant, quadrIvalent,injectable, prese rvative free 03/28/2020 04:22:00 PM EST completed eCW1 ([facility]) influenza, recombinant, quadrIvalent,injectable, prese rvative free 03/28/2020 04:22:00 PM EST completed eCW1 ([facility]) influenza, recombinant, quadrIvalent,injectable, prese rvative free 03/28/2020 04:22:00 PM EST completed eCW1 ([facility]) influenza, recombinant, quadrIvalent,injectable, prese rvative free 03/28/2020 04:22:00 PM EST completed eCW1 ([facility]) influenza, recombinant, quadrIvalent,injectable, prese rvative free 03/28/2020 04:22:00 PM EST completed eCW1 ([facility]) influenza, recombinant, quadrIvalent,injectable, prese rvative free 03/28/2020 04:22:00 PM EST completed eCW1 ([facility]) influenza, recombinant, quadrIvalent,injectable, prese rvative free 03/28/2020 04:22:00 PM EST completed eCW1 ([facility]) influenza, recombinant, quadrIvalent,injectable, prese rvative free 03/28/2020 04:22:00 PM EST completed eCW1 ([facility]) influenza, recombinant, quadrIvalent,injectable, prese rvative free 03/28/2020 04:22:00 PM EST completed eCW1 ([facility]) influenza, recombinant, quadrIvalent,injectable, prese rvative free 03/28/2020 04:22:00 PM EST completed eCW1 ([facility]) influenza, recombinant, quadrIvalent,injectable, prese rvative free 03/28/2020 04:22:00 PM EST completed eCW1 ([facility]) influenza, recombinant, quadrIvalent,injectable, prese rvative free 03/28/2020 04:22:00 PM EST completed eCW1 ([facility]) influenza, recombinant, quadrIvalent,injectable, prese rvative free 03/28/2020 04:22:00 PM EST completed eCW1 ([facility]) influenza, recombinant, quadrIvalent,injectable, prese rvative free 03/28/2020 04:22:00 PM EST completed eCW1 ([facility]) Medications Medication Brand Name Start Date Product [...] 1.0 {tablet_on_the_tongue_and_allow_to_dissolve} active Ondansetron 4 MG eCW1 ([facility]) Ondansetron 4 MG Disintegrating Oral Tablet Ondansetron 4 MG 11/30/2020 12:00:00 AM EDT 1.0 {tablet_on_the_tongue_and_allow_to_dissolve} active eCW1 ([facility]) Ondansetron 4 MG Disintegrating Oral Tablet Ondansetron 4 MG 11/30/2020 12:00:00 AM EDT 1.0 {tablet_on_the_tongue_and_allow_to_dissolve} active Ondansetron 4 MG eCW1 ([facility]) Ondansetron 4 MG Disintegrating Oral Tablet Ondansetron 4 MG 11/30/2020 12:00:00 AM EDT 1.0 {tablet_on_the_tongue_and_allow_to_dissolve} active Ondansetron 4 MG eCW1 ([facility]) Ondansetron 4 MG Disintegrating Oral Tablet Ondansetron 4 MG 11/30/2020 12:00:00 AM EDT 1.0 {tablet_on_the_tongue_and_allow_to_dissolve} active Ondansetron 4 MG eCW1 ([facility]) 300 mg 11/20/2020 12:00:00 AM EDT capsule [...] {capsule} active Cefdinir 3 00 MG eCW1 ([facility]) 5 mg 11/19/2020 12:00:00 AM EDT tablet [...] MOUTH TWICE A DAY SOLD: 07/15/2020 [facility] tizanidine 4 MG Oral Tablet TIZANIDINE HCL 06/22/2020 12:00:00 AM EST tablet 90 TAKE ONE TABLET BY MOUTH THREE TIMES A DAY NEEDED T KATHLEEN ONE TABLET BY MOUTH THREE TIMES A DAY NEEDED SOLD: 06/22/2020 [facility] gabapentin 800 MG Oral Tablet GABAPENTIN 06/22/2020 [...] TWO TIMES A DAY SOLD: 05/18/2020 [facility] Metronidazole 500 MG Oral Tablet METRONIDAZOLE 05/17/2020 [...] BY MOUTH TWICE A DAY SOLD: 06/20/2020 [facility] 20 mg 02/24/2020 12:00:00 AM EDT tablet 60 TAKE ONE TABLET BY MOUTH TWICE A DAY TAKE ONE TABLET BY MOUTH TWICE A DAY SOLD: 02/25/2020 [facility] pantoprazole 40 MG Delayed Release Oral Tablet PANTOPRAZOLE SODIUM 02/24/2020 12:00:00 AM EDT tablet,delayed release (DR/EC) 60 T KATHLEEN ONE TABLET BY MOUTH TWICE A DAY TAKE ONE TABLET BY MOUTH TWICE A DAY SOLD: 06/20/2020 [facility] pantoprazole 40 MG Delayed Release Oral Tablet PANTOPRAZOLE SODIUM 02/24/2020 12:00:00 AM EDT tablet,delayed release (DR/EC) 60 T KATHLEEN ONE TABLET BY MOUTH TWICE A DAY TAKE ONE TABLET BY MOUTH TWICE A DAY SOLD: 09/04/2020 [facility] pantoprazole 40 MG Delayed Release Oral Tablet PANTOPRAZOLE SODIUM 02/24/2020 12:00:00 AM EDT tablet,delayed release (DR/EC) 60 T KATHLEEN ONE TABLET BY MOUTH TWICE A DAY TAKE ONE TABLET BY MOUTH TWICE A DAY SOLD: 01/10/2021 [facility] pantoprazole 40 MG Delayed Release Oral Tablet PANTOPRAZOLE SODIUM 02/24/2020 12:00:00 AM EDT tablet,delayed release (DR/EC) 60 T KATHLEEN ONE TABLET BY MOUTH TWICE A DAY TAKE ONE TABLET BY MOUTH TWICE A DAY SOLD: 11/30/2020 [facility] pantoprazole 40 MG Delayed Release Oral Tablet PANTOPRAZOLE SODIUM 02/24/2020 12:00:00 AM EDT tablet,delayed release (DR/EC) 60 T KATHLEEN ONE TABLET BY MOUTH TWICE A DAY TAKE ONE TABLET BY MOUTH TWICE A DAY SOLD: 10/18/2020 [facility] pantoprazole 40 MG Delayed Release Oral Tablet Pantoprazole Sodium 40 MG Oral Tablet Delayed Release (Protonix) Pantoprazole Sodium 40 MG Oral Tablet De layed Release (Protonix) 02/23/2020 12:00:00 AM EDT 40 mg Oral active Take 1 tablet by mouth Two Times Daily [facility] Famotidine 20 MG Oral Tablet Famotidine 20 MG Oral Tab let (Pepcid) Famotidine 20 MG Oral Tablet (Pepcid) 02/23/2020 12:00:00 AM EDT 20 mg Oral active Take 1 tablet by mouth Two Times Daily [facility] gabapentin 800 MG Oral Tablet GABAPENTIN 01/28/2020 [...] Two times daily before breakfast and dinner [facility] pantoprazole 40 MG Delayed Release Oral Tablet [...] active Take 1 tablet by fernando [facility] 40 mg 02/03/2019 12:00:00 AM EDT tablet 30 TAKE ONE TABLET BY MOUTH EVERY EVENING TAKE ONE TABLET BY MOUTH EVERY EVENING SOLD: 01/22/2020 [facility] Famotidine 40 MG Oral Tablet famotidine (PEPCID) 40 MG tablet famotidine (PEPCID) 40 MG tablet 02/02/2019 12:00:00 AM EDT 40 mg Oral active Take 1 tablet by mouth [facility] Amoxicillin 500 MG Oral Capsule amoxicillin 500 mg cap gonzalo amoxicillin 500 mg capsule completed amoxicillin 50 0 MG Oral Capsule [facility] ([facility]) gabapentin 600 MG Oral Tablet gabapentin 600 mg tablet gabap entin 600 mg tablet completed gabapentin 600 MG Oral Tablet [facility] ([facility]) ranitidine hydrochloride 150 mg tabs completed ranitidine hydrochloride 150 mg tabs [facility] ([facility]) Acetaminophen 325 MG / Hydrocodone Rosmery trate 5 MG Oral Tablet hydrocodone 5 mg- acetaminophen 325 mg tablet hydrocodone 5 mg-acetaminophen 325 mg tablet completed acetaminophen 325 MG / hydrocodone bitartrate 5 MG Oral Tablet [facility] ([facility]) pantoprazole 20 MG Delayed Release Oral Tablet [Protonix] Protonix 20 mg tablet,delayed release Take 1 tablet every day by oral route. Protonix 20 mg tablet,delayed release Take 1 tablet every day by oral route. 1 completed pantoprazole 20 MG Delayed Relea se Oral Tablet [Protonix] [facility] ([facility]) gabapentin 600 mg tabs completed gabapentin 600 mg tabs [facility] ([facility]) pantoprazole 20 MG Delayed Release Oral Tablet [Protonix] Protonix 20 mg tablet,delayed release Take 1 tablet every day by oral route. Protonix 20 mg tablet,delayed release Take 1 tablet every day by oral route. 1 completed pantoprazole 20 MG Delayed Relea se Oral Tablet [Protonix] [facility] ([facility]) ranitidine hydrochloride 150 mg tabs completed ranitidine hydrochloride 150 mg tabs [facility] ([facility]) gabapentin 400 mg caps completed gabapentin 400 mg caps [facility] ([facility]) Famotidine 40 MG Oral Tablet famotidine 40 mg tablet famotidine 40 mg tablet completed famotidine 40 MG Oral Tablet [facility] ([facility]) sennosides, DETENTION 8.6 MG Oral Tablet [Senna-Time] senna 8.6 mg tablet senna 8.6 mg tablet completed sennosi shawn, DETENTION 8.6 MG Oral Tablet [Senna-Time] [facility] ([facility]) Metoclopramide 10 MG Oral Tablet metoclo pramide 10 mg tablet TAKE ONE TABLET BY MOUTH BEFORE MEALS THREE TIMES A DAY AND AT BEDTIME metoclopramide 10 mg tablet TAKE ONE TABLET BY MOUTH BEFORE MEALS THREE TIMES A DAY AND AT BEDTIME completed metoclopramide 10 MG Oral Tablet [facility] ([facility]) gabapentin 600 mg tabs completed gabapentin 600 mg tabs [facility] ([facility]) Famotidine 20 MG Oral Tablet famotidine 20 mg tablet famotidine 20 mg tablet completed famotidine 20 MG Oral Tablet [facility] ([facility]) Ondansetron 4 MG Oral Tablet ondansetron HCl 4 mg tabl et ondansetron HCl 4 mg tablet completed ondansetron 4 M G Oral Tablet [facility] ([facility]) 24 HR Nicotine 0.583 MG/HR Transdermal P atch nicotine 14 mg/24 hr daily transdermal patch APPLY 1 PATCH TO SKIN ONCE DAILY nicotine 14 mg/24 hr daily transdermal patch APPLY 1 PATCH TO SKIN ONCE DAILY completed 24 HR nicotine 0.583 MG/HR Transdermal System [facility] ([facility]) famotidine 40 mg tabs completed famotidine 40 mg tabs [facility] ([facility]) pantoprazole sodium 40 mg tbec completed pantoprazole sodium 40 mg tbec [facility] ([facility]) Acetaminophen 325 MG / Hydrocodone Rosmery trate 5 MG Oral Tablet hydrocodone 5 mg- acetaminophen 325 mg tablet hydrocodone 5 mg-acetaminophen 325 mg tablet completed acetaminophen 325 MG / hydrocodone bitartrate 5 MG Oral Tablet [facility] ([facility]) Acetaminophen 325 MG / Oxycodone Hydroch loride 5 MG Oral Tablet oxycodone- acetaminophen 5 mg-325 mg tablet oxycodone-acetaminophen 5 mg-325 mg tablet completed acetaminop hen 325 MG / oxycodone hydrochloride 5 MG Oral Tablet [facility] ([facility]) Metronidazole 500 MG Oral Tablet metroni dazole 500 mg tablet TAKE ONE TABLET BY MOUTH EVERY 8 HOURS metronidazole 500 mg tablet TAKE ONE TAB LET BY MOUTH EVERY 8 HOURS completed metronidazole 5 00 MG Oral Tablet [facility] ([facility]) pantoprazole sodium 40 mg tbec completed pantoprazole sodium 40 mg tbec [facility] ([facility]) Amoxicillin 500 MG Oral Capsule amoxicillin 500 mg cap gonzalo amoxicillin 500 mg capsule completed amoxicillin 50 0 MG Oral Capsule [facility] ([facility]) metoclopramide hydrochloride 10 mg tabs completed metoclopramide hydrochloride 10 mg tabs [facility] ([facility]) tizanidine 4 MG Oral Tablet tizanidine 4 mg tablet TAKE ONE TABLET BY MOUTH THREE TIMES A DAY NEEDED tizanidine 4 mg tablet TAKE ONE TABLET B Y MOUTH THREE TIMES A DAY NEEDED completed tizanidine 4 MG Oral Tablet [facility] ([facility]) Famotidine 40 MG Oral Tablet famotidine 40 mg tablet famotidine 40 mg tablet completed famotidine 40 MG Oral Tablet [facility] ([facility]) Metronidazole 500 MG Oral Tablet metronidazole 500 mg tablet metronidazole 500 mg tablet completed metronidazol e 500 MG Oral Tablet [facility] ([facility]) ondansetron odt 4 mg tbdp compl eted ondansetron odt 4 mg tbdp [facility] ([facility]) sennosides, DETENTION 8.6 MG Oral Tablet [Senna-Time] senna 8.6 mg tablet senna 8.6 mg tablet completed sennosi shawn, DETENTION 8.6 MG Oral Tablet [Senna-Time] [facility] ([facility]) ondansetron odt 4 mg tbdp compl eted ondansetron odt 4 mg tbdp [facility] ([facility]) sennosides, DETENTION 8.6 MG Oral Tablet [Senna-Time] senna 8.6 mg tablet senna 8.6 mg tablet completed sennosi shawn, DETENTION 8.6 MG Oral Tablet [Senna-Time] [facility] ([facility]) ranitidine hydrochloride 150 mg tabs completed ranitidine hydrochloride 150 mg tabs [facility] ([facility]) Metoclopramide 10 MG Oral Tablet metoclo pramide 10 mg tablet TAKE ONE TABLET BY MOUTH BEFORE MEALS THREE TIMES A DAY AND AT BEDTIME metoclopramide 10 mg tablet TAKE ONE TABLET BY MOUTH BEFORE MEALS THREE TIMES A DAY AND AT BEDTIME completed metoclopramide 10 MG Oral Tablet [facility] ([facility]) Acetaminophen 325 MG / Hydrocodone Rosmery trate 5 MG Oral Tablet hydrocodone 5 mg- acetaminophen 325 mg tablet hydrocodone 5 mg-acetaminophen 325 mg tablet completed acetaminophen 325 MG / hydrocodone bitartrate 5 MG Oral Tablet [facility] ([facility]) ranitidine hydrochloride 150 mg tabs completed ranitidine hydrochloride 150 mg tabs [facility] ([facility]) Famotidine 20 MG Oral Tablet famotidine 20 mg tablet famotidine 20 mg tablet completed famotidine 20 MG Oral Tablet [facility] ([facility]) gabapentin 800 mg tabs completed gabapentin 800 mg tabs [facility] ([facility]) gabapentin 600 mg tabs completed gabapentin 600 mg tabs [facility] ([facility]) Famotidine 40 MG Oral Tablet famotidine 40 mg tablet famotidine 40 mg tablet completed famotidine 40 MG Oral Tablet [facility] ([facility]) gabapentin 800 mg tabs completed gabapentin 800 mg tabs [facility] ([facility]) Metronidazole 500 MG Oral Tablet metronidazole 500 mg tablet metronidazole 500 mg tablet completed metronidazol e 500 MG Oral Tablet [facility] ([facility]) gabapentin 600 MG Oral Tablet gabapentin 600 mg tablet gabap entin 600 mg tablet completed gabapentin 600 MG Oral Tablet [facility] ([facility]) famotidine 40 mg tabs completed famotidine 40 mg tabs [facility] ([facility]) Famotidine 40 MG Oral Tablet famotidine 40 mg tablet famotidine 40 mg tablet completed famotidine 40 MG Oral Tablet [facility] ([facility]) Metoclopramide 10 MG Oral Tablet metoclo pramide 10 mg tablet TAKE ONE TABLET BY MOUTH BEFORE MEALS THREE TIMES A DAY AND AT BEDTIME metoclopramide 10 mg tablet TAKE ONE TABLET BY MOUTH BEFORE MEALS THREE TIMES A DAY AND AT BEDTIME completed metoclopramide 10 MG Oral Tablet [facility] ([facility]) Acetaminophen 325 MG / Hydrocodone Rosmery trate 5 MG Oral Tablet hydrocodone 5 mg- acetaminophen 325 mg tablet hydrocodone 5 mg-acetaminophen 325 mg tablet completed acetaminophen 325 MG / hydrocodone bitartrate 5 MG Oral Tablet [facility] ([facility]) gabapentin 600 MG Oral Tablet gabapentin 600 mg tablet gabap entin 600 mg tablet completed gabapentin 600 MG Oral Tablet [facility] ([facility]) sennosides, DETENTION 8.6 MG Oral Tablet [Senna-Time] senna 8.6 mg tablet senna 8.6 mg tablet completed sennosi shawn, DETENTION 8.6 MG Oral Tablet [Senna-Time] [facility] ([facility]) metoclopramide hydrochloride 10 mg tabs completed metoclopramide hydrochloride 10 mg tabs [facility] ([facility]) famotidine 40 mg tabs completed famotidine 40 mg tabs [facility] ([facility]) famotidine 40 mg tabs completed famotidine 40 mg tabs [facility] ([facility]) Promethazine Hydrochloride 25 MG Oral Tablet promethaz ine 25 mg tablet promethazine 25 mg tablet completed promethazine hydrochloride 25 MG Oral Tablet [facility] ([facility]) Famotidine 40 MG Oral Tablet famotidine 40 mg tablet famotidine 40 mg tablet completed famotidine 40 MG Oral Tablet [facility] ([facility]) tizanidine 4 MG Oral Tablet tizanidine 4 mg tablet TAKE ONE TABLET BY MOUTH THREE TIMES A DAY NEEDED tizanidine 4 mg tablet TAKE ONE TABLET B Y MOUTH THREE TIMES A DAY NEEDED completed tizanidine 4 MG Oral Tablet [facility] ([facility]) Amoxicillin 500 MG Oral Capsule amoxicillin 500 mg cap gonzalo amoxicillin 500 mg capsule completed amoxicillin 50 0 MG Oral Capsule [facility] ([facility]) ranitidine hydrochloride 150 mg tabs completed ranitidine hydrochloride 150 mg tabs [facility] ([facility]) pantoprazole sodium 40 mg tbec completed pantoprazole sodium 40 mg tbec [facility] ([facility]) cefdinir 300 MG Oral Capsule cefdinir 300 mg capsule cefdinir 30 0 mg capsule completed cefdinir 300 M G Oral Capsule [facility] ([facility]) gabapentin 400 mg caps completed gabapentin 400 mg caps [facility] ([facility]) Metronidazole 500 MG Oral Tablet metroni dazole 500 mg tablet TAKE ONE TABLET BY MOUTH EVERY 8 HOURS metronidazole 500 mg tablet TAKE ONE TAB LET BY MOUTH EVERY 8 HOURS completed metronidazole 5 00 MG Oral Tablet [facility] ([facility]) Ondansetron 4 MG Oral Tablet ondansetron HCl 4 mg tabl et ondansetron HCl 4 mg tablet completed ondansetron 4 M G Oral Tablet [facility] ([facility]) Famotidine 40 MG Oral Tablet famotidine 40 mg tablet famotidine 40 mg tablet completed famotidine 40 MG Oral Tablet [facility] ([facility]) ondansetron odt 4 mg tbdp compl eted ondansetron odt 4 mg tbdp [facility] ([facility]) gabapentin 400 mg caps completed gabapentin 400 mg caps [facility] ([facility]) Amoxicillin 500 MG Oral Capsule amoxicillin 500 mg cap gonzalo amoxicillin 500 mg capsule completed amoxicillin 50 0 MG Oral Capsule [facility] ([facility]) ranitidine hydrochloride 150 mg tabs completed ranitidine hydrochloride 150 mg tabs [facility] ([facility]) gabapentin 400 mg caps completed gabapentin 400 mg caps [facility] ([facility]) ranitidine hydrochloride 150 mg tabs completed ranitidine hydrochloride 150 mg tabs [facility] ([facility]) Acetaminophen 325 MG / Hydrocodone Rosmery trate 5 MG Oral Tablet hydrocodone 5 mg- acetaminophen 325 mg tablet hydrocodone 5 mg-acetaminophen 325 mg tablet completed acetaminophen 325 MG / hydrocodone bitartrate 5 MG Oral Tablet [facility] ([facility]) famotidine 40 mg tabs completed famotidine 40 mg tabs [facility] ([facility]) tizanidine 4 MG Oral Tablet tizanidine 4 mg tablet TAKE ONE TABLET BY MOUTH THREE TIMES A DAY NEEDED tizanidine 4 mg tablet TAKE ONE TABLET B Y MOUTH THREE TIMES A DAY NEEDED completed tizanidine 4 MG Oral Tablet [facility] ([facility]) pantoprazole sodium 40 mg tbec completed pantoprazole sodium 40 mg tbec [facility] ([facility]) gabapentin 600 MG Oral Tablet gabapentin 600 mg tablet gabap entin 600 mg tablet completed gabapentin 600 MG Oral Tablet [facility] ([facility]) ondansetron odt 4 mg tbdp compl eted ondansetron odt 4 mg tbdp [facility] ([facility]) metoclopramide hydrochloride 10 mg tabs completed metoclopramide hydrochloride 10 mg tabs [facility] ([facility]) famotidine 40 mg tabs completed famotidine 40 mg tabs [facility] ([facility]) Famotidine 20 MG Oral Tablet famotidine 20 mg tablet famotidine 20 mg tablet completed famotidine 20 MG Oral Tablet [facility] ([facility]) Famotidine 40 MG Oral Tablet famotidine 40 mg tablet famotidine 40 mg tablet completed famotidine 40 MG Oral Tablet [facility] ([facility]) metoclopramide hydrochloride 10 mg tabs completed metoclopramide hydrochloride 10 mg tabs [facility] ([facility]) Promethazine Hydrochloride 25 MG Oral Tablet promethaz ine 25 mg tablet promethazine 25 mg tablet completed promethazine hydrochloride 25 MG Oral Tablet [facility] ([facility]) pantoprazole 20 MG Delayed Release Oral Tablet [Protonix] Protonix 20 mg tablet,delayed release Take 1 tablet every day by oral route. Protonix 20 mg tablet,delayed release Take 1 tablet every day by oral route. 1 completed pantoprazole 20 MG Delayed Relea se Oral Tablet [Protonix] [facility] ([facility]) Metoclopramide 5 MG Oral Tablet metoclopramide 5 mg ta blet metoclopramide 5 mg tablet completed metoclopramide 5 MG Oral Tablet [facility] ([facility]) gabapentin 600 MG Oral Tablet gabapentin 600 mg tablet gabap entin 600 mg tablet completed gabapentin 600 MG Oral Tablet [facility] ([facility]) pantoprazole sodium 40 mg tbec completed pantoprazole sodium 40 mg tbec [facility] ([facility]) gabapentin 800 mg tabs completed gabapentin 800 mg tabs [facility] ([facility]) Metronidazole 500 MG Oral Tablet metronidazole 500 mg tablet metronidazole 500 mg tablet completed metronidazol e 500 MG Oral Tablet [facility] ([facility]) Acetaminophen 325 MG / Oxycodone Hydroch loride 5 MG Oral Tablet oxycodone- acetaminophen 5 mg-325 mg tablet oxycodone-acetaminophen 5 mg-325 mg tablet completed acetaminop hen 325 MG / oxycodone hydrochloride 5 MG Oral Tablet [facility] ([facility]) gabapentin 600 MG Oral Tablet gabapentin 600 mg tablet gabap entin 600 mg tablet completed gabapentin 600 MG Oral Tablet [facility] ([facility]) Promethazine Hydrochloride 25 MG Oral Tablet promethaz ine 25 mg tablet promethazine 25 mg tablet completed promethazine hydrochloride 25 MG Oral Tablet [facility] ([facility]) metoclopramide hydrochloride 10 mg tabs completed metoclopramide hydrochloride 10 mg tabs [facility] ([facility]) famotidine 40 mg tabs completed famotidine 40 mg tabs [facility] ([facility]) metoclopramide hydrochloride 10 mg tabs completed metoclopramide hydrochloride 10 mg tabs [facility] ([facility]) Metoclopramide 10 MG Oral Tablet metoclo pramide 10 mg tablet TAKE ONE TABLET BY MOUTH BEFORE MEALS THREE TIMES A DAY AND AT BEDTIME metoclopramide 10 mg tablet TAKE ONE TABLET BY MOUTH BEFORE MEALS THREE TIMES A DAY AND AT BEDTIME completed metoclopramide 10 MG Oral Tablet [facility] ([facility]) ondansetron odt 4 mg tbdp compl eted ondansetron odt 4 mg tbdp [facility] ([facility]) gabapentin 600 MG Oral Tablet gabapentin 600 mg tablet gabap entin 600 mg tablet completed gabapentin 600 MG Oral Tablet [facility] ([facility]) Acetaminophen 325 MG / Oxycodone Hydroch loride 5 MG Oral Tablet oxycodone- acetaminophen 5 mg-325 mg tablet oxycodone-acetaminophen 5 mg-325 mg tablet completed acetaminop hen 325 MG / oxycodone hydrochloride 5 MG Oral Tablet [facility] ([facility]) pantoprazole 20 MG Delayed Release Oral Tablet [Protonix] Protonix 20 mg tablet,delayed release Take 1 tablet every day by oral route. Protonix 20 mg tablet,delayed release Take 1 tablet every day by oral route. 1 completed pantoprazole 20 MG Delayed Relea se Oral Tablet [Protonix] [facility] ([facility]) ranitidine hydrochloride 150 mg tabs completed ranitidine hydrochloride 150 mg tabs [facility] ([facility]) pantoprazole sodium 40 mg tbec completed pantoprazole sodium 40 mg tbec [facility] ([facility]) gabapentin 600 mg tabs completed gabapentin 600 mg tabs [facility] ([facility]) pantoprazole 20 MG Delayed Release Oral Tablet [Protonix] Protonix 20 mg tablet,delayed release Take 1 tablet every day by oral route. Protonix 20 mg tablet,delayed release Take 1 tablet every day by oral route. 1 completed pantoprazole 20 MG Delayed Relea se Oral Tablet [Protonix] [facility] ondansetron odt 4 mg tbdp compl eted ondansetron odt 4 mg tbdp [facility]) gabapentin 400 mg caps completed gabapentin 400 mg caps [facility] ([facility]) metoclopramide hydrochloride 10 mg tabs completed metoclopramide hydrochloride 10 mg tabs [facility] ([facility]) Acetaminophen 325 MG / Hydrocodone Rosmery trate 5 MG Oral Tablet hydrocodone 5 mg- acetaminophen 325 mg tablet hydrocodone 5 mg-acetaminophen 325 mg tablet completed acetaminophen 325 MG / hydrocodone bitartrate 5 MG Oral Tablet [facility] ([facility]) Amoxicillin 500 MG Oral Capsule amoxicillin 500 mg cap gonzalo amoxicillin 500 mg capsule completed amoxicillin 50 0 MG Oral Capsule [facility] ([facility]) Ciprofloxacin 500 MG Oral Tablet ciprofloxacin 500 mg tablet ciprofloxacin 500 mg tablet completed ciprofloxaci n 500 MG Oral Tablet [facility] ([facility]) Ondansetron 4 MG Oral Tablet ondansetron HCl 4 mg tabl et ondansetron HCl 4 mg tablet completed ondansetron 4 M G Oral Tablet [facility] ([facility]) famotidine 40 mg tabs completed famotidine 40 mg tabs [facility] ([facility]) tizanidine 4 MG Oral Tablet tizanidine 4 mg tablet TAKE ONE TABLET BY MOUTH THREE TIMES A DAY NEEDED tizanidine 4 mg tablet TAKE ONE TABLET B Y MOUTH THREE TIMES A DAY NEEDED completed tizanidine 4 MG Oral Tablet [facility] ([facility]) metoclopramide hydrochloride 10 mg tabs completed metoclopramide hydrochloride 10 mg tabs [facility] ([facility]) pantoprazole sodium 40 mg tbec completed pantoprazole sodium 40 mg tbec [facility] ([facility]) gabapentin 600 mg tabs completed gabapentin 600 mg tabs [facility] ([facility]) gabapentin 800 mg tabs completed gabapentin 800 mg tabs [facility] ([facility]) metoclopramide hydrochloride 10 mg tabs completed metoclopramide hydrochloride 10 mg tabs [facility] ([facility]) pantoprazole 20 MG Delayed Release Oral Tablet [Protonix] Protonix 20 mg tablet,delayed release Take 1 tablet every day by oral route. Protonix 20 mg tablet,delayed release Take 1 tablet every day by oral route. 1 completed pantoprazole 20 MG Delayed Relea se Oral Tablet [Protonix] [facility] ([facility]) gabapentin 800 mg tabs completed gabapentin 800 mg tabs [facility] ([facility]) Acetaminophen 325 MG / Hydrocodone Rosmery trate 5 MG Oral Tablet hydrocodone 5 mg- acetaminophen 325 mg tablet hydrocodone 5 mg-acetaminophen 325 mg tablet completed acetaminophen 325 MG / hydrocodone bitartrate 5 MG Oral Tablet [facility] ([facility]) Ciprofloxacin 500 MG Oral Tablet ciprofl oxacin 500 mg tablet TAKE ONE TABLET BY MOUTH TWO TIMES A DAY ciprofloxacin 500 mg tablet TAKE ONE TAB LET BY MOUTH TWO TIMES A DAY completed ciprofloxa ru 500 MG Oral Tablet [facility] ([facility]) chlorhexidine gluconate 1.2 MG/ML Mouthw macario chlorhexidine gluconate 0.12 % mouthwash chlorhexidine gluconate 0.12 % mouthwash completed chlorhexidine gluconate 1.2 MG/ML Mouthwash [facility] ([facility]) Metronidazole 500 MG Oral Tablet metroni dazole 500 mg tablet TAKE ONE TABLET BY MOUTH EVERY 8 HOURS metronidazole 500 mg tablet TAKE ONE TAB LET BY MOUTH EVERY 8 HOURS completed metronidazole 5 00 MG Oral Tablet [facility] ([facility]) Famotidine 40 MG Oral Tablet famotidine 40 mg tablet famotidine 40 mg tablet completed famotidine 40 MG Oral Tablet [facility] ([facility]) Ciprofloxacin 500 MG Oral Tablet ciprofl oxacin 500 mg tablet TAKE ONE TABLET BY MOUTH TWO TIMES A DAY ciprofloxacin 500 mg tablet TAKE ONE TAB LET BY MOUTH TWO TIMES A DAY completed ciprofloxa ru 500 MG Oral Tablet [facility] ([facility]) ranitidine hydrochloride 150 mg tabs completed ranitidine hydrochloride 150 mg tabs [facility] ([facility]) famotidine 40 mg tabs completed famotidine 40 mg tabs [facility] ([facility]) ranitidine hydrochloride 150 mg tabs completed ranitidine hydrochloride 150 mg tabs [facility] ([facility]) Famotidine 20 MG Oral Tablet famotidine 20 mg tablet famotidine 20 mg tablet completed famotidine 20 MG Oral Tablet [facility] ([facility]) ondansetron odt 4 mg tbdp compl eted ondansetron odt 4 mg tbdp [facility] ([facility]) famotidine 40 mg tabs completed famotidine 40 mg tabs [facility] ([facility]) gabapentin 600 MG Oral Tablet gabapentin 600 mg tablet gabap entin 600 mg tablet completed gabapentin 600 MG Oral Tablet [facility] ([facility]) metoclopramide hydrochloride 10 mg tabs completed metoclopramide hydrochloride 10 mg tabs [facility] ([facility]) metoclopramide hydrochloride 10 mg tabs completed metoclopramide hydrochloride 10 mg tabs [facility] ([facility]) gabapentin 600 mg tabs completed gabapentin 600 mg tabs [facility] ([facility]) ondansetron odt 4 mg tbdp compl eted ondansetron odt 4 mg tbdp [facility] ([facility]) metoclopramide hydrochloride 10 mg tabs completed metoclopramide hydrochloride 10 mg tabs [facility] ([facility]) ranitidine hydrochloride 150 mg tabs completed ranitidine hydrochloride 150 mg tabs [facility] ([facility]) Metronidazole 500 MG Oral Tablet metronidazole 500 mg tablet metronidazole 500 mg tablet completed metronidazol e 500 MG Oral Tablet [facility] ([facility]) pantoprazole sodium 40 mg tbec completed pantoprazole sodium 40 mg tbec [facility]) ondansetron odt 4 mg tbdp compl eted ondansetron odt 4 mg tbdp [facility]) gabapentin 600 MG Oral Tablet gabapentin 600 mg tablet gabap entin 600 mg tablet completed gabapentin 600 MG Oral Tablet [facility] ([facility]) famotidine 40 mg tabs completed famotidine 40 mg tabs [facility] ([facility]) gabapentin 400 mg caps completed gabapentin 400 mg caps [facility] ([facility]) ondansetron odt 4 mg tbdp compl eted ondansetron odt 4 mg tbdp [facility] ([facility]) ondansetron odt 4 mg tbdp compl eted ondansetron odt 4 mg tbdp [facility]) gabapentin 600 MG Oral Tablet gabapentin 600 mg tablet gabap entin 600 mg tablet completed gabapentin 600 MG Oral Tablet [facility] ([facility]) gabapentin 600 MG Oral Tablet gabapentin 600 mg tablet gabap entin 600 mg tablet completed gabapentin 600 MG Oral Tablet [facility] ([facility]) metoclopramide hydrochloride 10 mg tabs completed metoclopramide hydrochloride 10 mg tabs [facility] ([facility]) famotidine 40 mg tabs completed famotidine 40 mg tabs [facility] ([facility]) gabapentin 600 MG Oral Tablet gabapentin 600 mg tablet gabap entin 600 mg tablet completed gabapentin 600 MG Oral Tablet [facility] ([facility]) famotidine 40 mg tabs completed famotidine 40 mg tabs [facility] ([facility]) metoclopramide hydrochloride 10 mg tabs completed metoclopramide hydrochloride 10 mg tabs [facility] ([facility]) gabapentin 600 mg tabs completed gabapentin 600 mg tabs [facility]) gabapentin 400 mg caps completed gabapentin 400 mg caps [facility] ([facility]) Ondansetron 4 MG Oral Tablet ondansetron HCl 4 mg tabl et ondansetron HCl 4 mg tablet completed ondansetron 4 M G Oral Tablet [facility] ([facility]) gabapentin 600 MG Oral Tablet gabapentin 600 mg tablet gabap entin 600 mg tablet completed gabapentin 600 MG Oral Tablet [facility] ([facility]) Amoxicillin 500 MG Oral Capsule amoxicillin 500 mg cap gonzalo amoxicillin 500 mg capsule completed amoxicillin 50 0 MG Oral Capsule [facility] ([facility]) pantoprazole sodium 40 mg tbec completed pantoprazole sodium 40 mg tbec [facility]) pantoprazole sodium 40 mg tbec completed pantoprazole sodium 40 mg tbec [facility]) metoclopramide hydrochloride 10 mg tabs completed metoclopramide hydrochloride 10 mg tabs [facility]) Metronidazole 500 MG Oral Tablet metroni dazole 500 mg tablet TAKE ONE TABLET BY MOUTH EVERY 8 HOURS metronidazole 500 mg tablet TAKE ONE TAB LET BY MOUTH EVERY 8 HOURS completed metronidazole 5 00 MG Oral Tablet [facility] ([facility]) Ciprofloxacin 500 MG Oral Tablet ciprofloxacin 500 mg tablet ciprofloxacin 500 mg tablet completed ciprofloxaci n 500 MG Oral Tablet [facility] ([facility]) Ciprofloxacin 500 MG Oral Tablet ciprofl oxacin 500 mg tablet TAKE ONE TABLET BY MOUTH TWO TIMES A DAY ciprofloxacin 500 mg tablet TAKE ONE TAB LET BY MOUTH TWO TIMES A DAY completed ciprofloxa ru 500 MG Oral Tablet [facility] ([facility]) pantoprazole 20 MG Delayed Release Oral Tablet [Protonix] Protonix 20 mg tablet,delayed release Take 1 tablet every day by oral route. Protonix 20 mg tablet,delayed release Take 1 tablet every day by oral route. 1 completed pantoprazole 20 MG Delayed Relea se Oral Tablet [Protonix] [facility] ([facility]) gabapentin 800 mg tabs completed gabapentin 800 mg tabs [facility] ([facility]) gabapentin 800 mg tabs completed gabapentin 800 mg tabs [facility] ([facility]) tizanidine 4 MG Oral Tablet tizanidine 4 mg tablet TAKE ONE TABLET BY MOUTH THREE TIMES A DAY NEEDED tizanidine 4 mg tablet TAKE ONE TABLET B Y MOUTH THREE TIMES A DAY NEEDED completed tizanidine 4 MG Oral Tablet [facility] ([facility]) gabapentin 400 mg caps completed gabapentin 400 mg caps [facility] ([facility]) ondansetron odt 4 mg tbdp compl eted ondansetron odt 4 mg tbdp [facility]) tizanidine 4 MG Oral Tablet tizanidine 4 mg tablet TAKE ONE TABLET BY MOUTH THREE TIMES A DAY NEEDED tizanidine 4 mg tablet TAKE ONE TABLET B Y MOUTH THREE TIMES A DAY NEEDED completed tizanidine 4 MG Oral Tablet [facility] ([facility]) gabapentin 400 mg caps completed gabapentin 400 mg caps [facility] ([facility]) Famotidine 40 MG Oral Tablet famotidine 40 mg tablet famotidine 40 mg tablet completed famotidine 40 MG Oral Tablet [facility] ([facility]) Baclofen 10 MG Oral Tablet baclofen 10 m g tablet TAKE ONE TABLET BY MOUTH TWICE A DAY NEEDED baclofen 10 mg tablet TAKE ONE TABLET BY MOUTH TWICE A DAY NEEDED completed baclofen 10 MG Oral Tablet [facility] ([facility]) gabapentin 600 mg tabs completed gabapentin 600 mg tabs [facility] ([facility]) famotidine 40 mg tabs completed famotidine 40 mg tabs [facility] ([facility]) pantoprazole 20 MG Delayed Release Oral Tablet [Protonix] Protonix 20 mg tablet,delayed release Take 1 tablet every day by oral route. Protonix 20 mg tablet,delayed release Take 1 tablet every day by oral route. 1 completed pantoprazole 20 MG Delayed Relea se Oral Tablet [Protonix] [facility] ([facility]) gabapentin 400 mg caps completed gabapentin 400 mg caps [facility] ([facility]) Ciprofloxacin 500 MG Oral Tablet ciprofl oxacin 500 mg tablet TAKE ONE TABLET BY MOUTH TWO TIMES A DAY ciprofloxacin 500 mg tablet TAKE ONE TAB LET BY MOUTH TWO TIMES A DAY completed ciprofloxa ru 500 MG Oral Tablet [facility] ([facility]) gabapentin 800 mg tabs completed gabapentin 800 mg tabs [facility] ([facility]) Amoxicillin 500 MG Oral Capsule amoxicillin 500 mg cap gonzalo amoxicillin 500 mg capsule completed amoxicillin 50 0 MG Oral Capsule [facility] ([facility]) pantoprazole 20 MG Delayed Release Oral Tablet [Protonix] Protonix 20 mg tablet,delayed release Take 1 tablet every day by oral route. Protonix 20 mg tablet,delayed release Take 1 tablet every day by oral route. 1 completed pantoprazole 20 MG Delayed Relea se Oral Tablet [Protonix] [facility] ([facility]) gabapentin 600 mg tabs completed gabapentin 600 mg tabs [facility] ([facility]) Metoclopramide 5 MG Oral Tablet metoclopramide 5 mg ta blet metoclopramide 5 mg tablet completed metoclopramide 5 MG Oral Tablet [facility] ([facility]) Metoclopramide 5 MG Oral Tablet metoclopramide 5 mg ta blet metoclopramide 5 mg tablet completed metoclopramide 5 MG Oral Tablet [facility] ([facility]) ranitidine hydrochloride 150 mg tabs completed ranitidine hydrochloride 150 mg tabs [facility] ([facility]) Acetaminophen 325 MG / Hydrocodone Rosmery trate 5 MG Oral Tablet hydrocodone 5 mg- acetaminophen 325 mg tablet hydrocodone 5 mg-acetaminophen 325 mg tablet completed acetaminophen 325 MG / hydrocodone bitartrate 5 MG Oral Tablet [facility] ([facility]) tizanidine 4 MG Oral Tablet tizanidine 4 mg tablet TAKE ONE TABLET BY MOUTH THREE TIMES A DAY NEEDED tizanidine 4 mg tablet TAKE ONE TABLET B Y MOUTH THREE TIMES A DAY NEEDED completed tizanidine 4 MG Oral Tablet [facility] ([facility]) Metoclopramide 5 MG Oral Tablet metoclopramide 5 mg ta blet metoclopramide 5 mg tablet completed metoclopramide 5 MG Oral Tablet [facility] ([facility]) gabapentin 600 MG Oral Tablet gabapentin 600 mg tablet gabap entin 600 mg tablet completed gabapentin 600 MG Oral Tablet [facility] ([facility]) Famotidine 40 MG Oral Tablet famotidine 40 mg tablet famotidine 40 mg tablet completed famotidine 40 MG Oral Tablet [facility] ([facility]) gabapentin 600 mg tabs completed gabapentin 600 mg tabs [facility] ([facility]) ranitidine hydrochloride 150 mg tabs completed ranitidine hydrochloride 150 mg tabs [facility] ([facility] Amoxicillin 500 MG Oral Capsule amoxicillin 500 mg cap gonzalo amoxicillin 500 mg capsule completed amoxicillin 50 0 MG Oral Capsule [facility] ([facility]) Acetaminophen 325 MG / Oxycodone Hydroch loride 5 MG Oral Tablet oxycodone- acetaminophen 5 mg-325 mg tablet oxycodone-acetaminophen 5 mg-325 mg tablet completed acetaminop hen 325 MG / oxycodone hydrochloride 5 MG Oral Tablet [facility] ([facility]) Amoxicillin 500 MG Oral Capsule amoxicillin 500 mg cap gonzalo amoxicillin 500 mg capsule completed amoxicillin 50 0 MG Oral Capsule [facility] ([facility]) ranitidine hydrochloride 150 mg tabs completed ranitidine hydrochloride 150 mg tabs [facility] ([facility]) gabapentin 400 mg caps completed gabapentin 400 mg caps [facility] ([facility]) gabapentin 800 mg tabs completed gabapentin 800 mg tabs [facility] ([facility]) sennosides, DETENTION 8.6 MG Oral Tablet [Senna-Time] senna 8.6 mg tablet senna 8.6 mg tablet completed sennosi shawn, DETENTION 8.6 MG Oral Tablet [Senna-Time] [facility] ([facility]) pantoprazole 20 MG Delayed Release Oral Tablet [Protonix] Protonix 20 mg tablet,delayed release Take 1 tablet every day by oral route. Protonix 20 mg tablet,delayed release Take 1 tablet every day by oral route. 1 completed pantoprazole 20 MG Delayed Relea se Oral Tablet [Protonix] [facility] ([facility]) famotidine 40 mg tabs completed famotidine 40 mg tabs [facility] ([facility]) Famotidine 40 MG Oral Tablet famotidine 40 mg tablet famotidine 40 mg tablet completed famotidine 40 MG Oral Tablet [facility] ([facility]) Ciprofloxacin 500 MG Oral Tablet ciprofl oxacin 500 mg tablet TAKE ONE TABLET BY MOUTH TWO TIMES A DAY ciprofloxacin 500 mg tablet TAKE ONE TAB LET BY MOUTH TWO TIMES A DAY completed ciprofloxa ru 500 MG Oral Tablet [facility] ([facility]) gabapentin 600 mg tabs completed gabapentin 600 mg tabs [facility] ([facility]) pantoprazole 20 MG Delayed Release Oral Tablet [Protonix] Protonix 20 mg tablet,delayed release Take 1 tablet every day by oral route. Protonix 20 mg tablet,delayed release Take 1 tablet every day by oral route. 1 completed pantoprazole 20 MG Delayed Relea se Oral Tablet [Protonix] [facility] ([facility]) gabapentin 800 mg tabs completed gabapentin 800 mg tabs [facility] ([facility]) ondansetron odt 4 mg tbdp compl eted ondansetron odt 4 mg tbdp [facility] ([facility]) ranitidine hydrochloride 150 mg tabs completed ranitidine hydrochloride 150 mg tabs [facility] ([facility]) pantoprazole 20 MG Delayed Release Oral Tablet [Protonix] Protonix 20 mg tablet,delayed release Take 1 tablet every day by oral route. Protonix 20 mg tablet,delayed release Take 1 tablet every day by oral route. 1 completed pantoprazole 20 MG Delayed Relea se Oral Tablet [Protonix] [facility] ([facility]) gabapentin 600 MG Oral Tablet gabapentin 600 mg tablet gabap entin 600 mg tablet completed gabapentin 600 MG Oral Tablet [facility] ([facility]) gabapentin 800 mg tabs completed gabapentin 800 mg tabs [facility]) pantoprazole sodium 40 mg tbec completed pantoprazole sodium 40 mg tbec [facility] ([facility]) pantoprazole sodium 40 mg tbec completed pantoprazole sodium 40 mg tbec [facility] ([facility]) Baclofen 10 MG Oral Tablet baclofen 10 m g tablet TAKE ONE TABLET BY MOUTH TWICE A DAY NEEDED baclofen 10 mg tablet TAKE ONE TABLET BY MOUTH TWICE A DAY NEEDED completed baclofen 10 MG Oral Tablet [facility] ([facility]) pantoprazole 20 MG Delayed Release Oral Tablet [Protonix] Protonix 20 mg tablet,delayed release Take 1 tablet every day by oral route. Protonix 20 mg tablet,delayed release Take 1 tablet every day by oral route. 1 completed pantoprazole 20 MG Delayed Relea se Oral Tablet [Protonix] [facility] ([facility]) Metronidazole 500 MG Oral Tablet metroni dazole 500 mg tablet TAKE ONE TABLET BY MOUTH EVERY 8 HOURS metronidazole 500 mg tablet TAKE ONE TAB LET BY MOUTH EVERY 8 HOURS completed metronidazole 5 00 MG Oral Tablet [facility] ([facility]) pantoprazole 20 MG Delayed Release Oral Tablet [Protonix] Protonix 20 mg tablet,delayed release Take 1 tablet every day by oral route. Protonix 20 mg tablet,delayed release Take 1 tablet every day by oral route. 1 completed pantoprazole 20 MG Delayed Relea se Oral Tablet [Protonix] [facility] ([facility]) pantoprazole sodium 40 mg tbec completed pantoprazole sodium 40 mg tbec [facility] ([facility]) cefdinir 300 MG Oral Capsule cefdinir 300 mg capsule cefdinir 30 0 mg capsule completed cefdinir 300 M G Oral Capsule [facility] ([facility]) Ciprofloxacin 500 MG Oral Tablet ciprofl oxacin 500 mg tablet TAKE ONE TABLET BY MOUTH TWO TIMES A DAY ciprofloxacin 500 mg tablet TAKE ONE TAB LET BY MOUTH TWO TIMES A DAY completed ciprofloxa ru 500 MG Oral Tablet [facility] ([facility]) Promethazine Hydrochloride 25 MG Oral Tablet promethaz ine 25 mg tablet promethazine 25 mg tablet completed promethazine hydrochloride 25 MG Oral Tablet [facility] ([facility]) ranitidine hydrochloride 150 mg tabs completed ranitidine hydrochloride 150 mg tabs [facility] ([facility]) Famotidine 20 MG Oral Tablet famotidine 20 mg tablet famotidine 20 mg tablet completed famotidine 20 MG Oral Tablet [facility] ([facility]) pantoprazole 20 MG Delayed Release Oral Tablet [Protonix] Protonix 20 mg tablet,delayed release Take 1 tablet every day by oral route. Protonix 20 mg tablet,delayed release Take 1 tablet every day by oral route. 1 completed pantoprazole 20 MG Delayed Relea se Oral Tablet [Protonix] [facility] ([facility]) famotidine 40 mg tabs completed famotidine 40 mg tabs [facility] ([facility]) gabapentin 800 mg tabs completed gabapentin 800 mg tabs [facility] ([facility]) pantoprazole 20 MG Delayed Release Oral Tablet [Protonix] Protonix 20 mg tablet,delayed release Take 1 tablet every day by oral route. Protonix 20 mg tablet,delayed release Take 1 tablet every day by oral route. 1 completed pantoprazole 20 MG Delayed Relea se Oral Tablet [Protonix] [facility] ([facility]) Metronidazole 500 MG Oral Tablet metroni dazole 500 mg tablet TAKE ONE TABLET BY MOUTH EVERY 8 HOURS metronidazole 500 mg tablet TAKE ONE TAB LET BY MOUTH EVERY 8 HOURS completed metronidazole 5 00 MG Oral Tablet [facility] ([facility]) gabapentin 600 mg tabs completed gabapentin 600 mg tabs [facility] ([facility]) gabapentin 400 mg caps completed gabapentin 400 mg caps [facility] ([facility]) tizanidine 4 MG Oral Tablet tizanidine 4 mg tablet TAKE ONE TABLET BY MOUTH THREE TIMES A DAY NEEDED tizanidine 4 mg tablet TAKE ONE TABLET B Y MOUTH THREE TIMES A DAY NEEDED completed tizanidine 4 MG Oral Tablet [facility] ([facility]) pantoprazole sodium 40 mg tbec completed pantoprazole sodium 40 mg tbec [facility] ([facility]) 24 HR Nicotine 0.583 MG/HR Transdermal P atch nicotine 14 mg/24 hr daily transdermal patch APPLY 1 PATCH TO SKIN ONCE DAILY nicotine 14 mg/24 hr daily transdermal patch APPLY 1 PATCH TO SKIN ONCE DAILY completed 24 HR nicotine 0.583 MG/HR Transdermal System [facility]) gabapentin 400 mg caps completed gabapentin 400 mg caps [facility] ([facility]) famotidine 40 mg tabs completed famotidine 40 mg tabs [facility] ([facility]) ranitidine hydrochloride 150 mg tabs completed ranitidine hydrochloride 150 mg tabs [facility] ([facility]) Famotidine 40 MG Oral Tablet famotidine 40 mg tablet famotidine 40 mg tablet completed famotidine 40 MG Oral Tablet [facility] ([facility]) gabapentin 600 mg tabs completed gabapentin 600 mg tabs [facility] ([facility]) gabapentin 600 mg tabs completed gabapentin 600 mg tabs [facility] ([facility]) gabapentin 600 MG Oral Tablet gabapentin 600 mg tablet gabap entin 600 mg tablet completed gabapentin 600 MG Oral Tablet [facility] ([facility]) gabapentin 600 MG Oral Tablet gabapentin 600 mg tablet gabap entin 600 mg tablet completed gabapentin 600 MG Oral Tablet [facility] ([facility]) pantoprazole sodium 40 mg tbec completed pantoprazole sodium 40 mg tbec [facility] ([facility]) Ondansetron 4 MG Oral Tablet ondansetron HCl 4 mg tabl et ondansetron HCl 4 mg tablet completed ondansetron 4 M G Oral Tablet [facility] ([facility]) tizanidine 4 MG Oral Tablet tizanidine 4 mg tablet TAKE ONE TABLET BY MOUTH THREE TIMES A DAY NEEDED tizanidine 4 mg tablet TAKE ONE TABLET B Y MOUTH THREE TIMES A DAY NEEDED completed tizanidine 4 MG Oral Tablet [facility] ([facility]) ondansetron odt 4 mg tbdp compl eted ondansetron odt 4 mg tbdp [facility] ([facility]) pantoprazole sodium 40 mg tbec completed pantoprazole sodium 40 mg tbec [facility]) gabapentin 400 mg caps completed gabapentin 400 mg caps [facility] ([facility]) Ondansetron 4 MG Oral Tablet ondansetron HCl 4 mg tabl et ondansetron HCl 4 mg tablet completed ondansetron 4 M G Oral Tablet [facility] ([facility]) gabapentin 800 mg tabs completed gabapentin 800 mg tabs [facility] ([facility]) pantoprazole sodium 40 mg tbec completed pantoprazole sodium 40 mg tbec [facility] ([facility]) Famotidine 20 MG Oral Tablet famotidine 20 mg tablet famotidine 20 mg tablet completed famotidine 20 MG Oral Tablet [facility]) famotidine 40 mg tabs completed famotidine 40 mg tabs [facility] ([facility]) gabapentin 600 MG Oral Tablet gabapentin 600 mg tablet gabap entin 600 mg tablet completed gabapentin 600 MG Oral Tablet [facility] ([facility]) Acetaminophen 325 MG / Oxycodone Hydroch loride 5 MG Oral Tablet oxycodone- acetaminophen 5 mg-325 mg tablet oxycodone-acetaminophen 5 mg-325 mg tablet completed acetaminop hen 325 MG / oxycodone hydrochloride 5 MG Oral Tablet [facility] ([facility]) tizanidine 4 MG Oral Tablet tizanidine 4 mg tablet TAKE ONE TABLET BY MOUTH THREE TIMES A DAY NEEDED tizanidine 4 mg tablet TAKE ONE TABLET B Y MOUTH THREE TIMES A DAY NEEDED completed tizanidine 4 MG Oral Tablet [facility] ([facility]) pantoprazole 20 MG Delayed Release Oral Tablet [Protonix] Protonix 20 mg tablet,delayed release Take 1 tablet every day by oral route. Protonix 20 mg tablet,delayed release Take 1 tablet every day by oral route. 1 completed pantoprazole 20 MG Delayed Relea se Oral Tablet [Protonix] [facility] ([facility]) pantoprazole 20 MG Delayed Release Oral Tablet [Protonix] Protonix 20 mg tablet,delayed release Take 1 tablet every day by oral route. Protonix 20 mg tablet,delayed release Take 1 tablet every day by oral route. 1 completed pantoprazole 20 MG Delayed Relea se Oral Tablet [Protonix] [facility] ([facility]) Metronidazole 500 MG Oral Tablet metronidazole 500 mg tablet metronidazole 500 mg tablet completed metronidazol e 500 MG Oral Tablet [facility] ([facility]) pantoprazole 20 MG Delayed Release Oral Tablet [Protonix] Protonix 20 mg tablet,delayed release Take 1 tablet every day by oral route. Protonix 20 mg tablet,delayed release Take 1 tablet every day by oral route. 1 completed pantoprazole 20 MG Delayed Relea se Oral Tablet [Protonix] [facility] ([facility]) Ondansetron 4 MG Oral Tablet ondansetron HCl 4 mg tabl et ondansetron HCl 4 mg tablet completed ondansetron 4 M G Oral Tablet [facility] ([facility]) ondansetron odt 4 mg tbdp compl eted ondansetron odt 4 mg tbdp [facility] ([facility]) gabapentin 400 mg caps completed gabapentin 400 mg caps [facility] ([facility]) pantoprazole sodium 40 mg tbec completed pantoprazole sodium 40 mg tbec [facility]) Acetaminophen 325 MG / Hydrocodone Rosmery trate 5 MG Oral Tablet hydrocodone 5 mg- acetaminophen 325 mg tablet hydrocodone 5 mg-acetaminophen 325 mg tablet completed acetaminophen 325 MG / hydrocodone bitartrate 5 MG Oral Tablet [facility] ([facility]) Promethazine Hydrochloride 25 MG Oral Tablet promethaz ine 25 mg tablet promethazine 25 mg tablet completed promethazine hydrochloride 25 MG Oral Tablet [facility] ([facility]) pantoprazole sodium 40 mg tbec completed pantoprazole sodium 40 mg tbec [facility] ([facility]) ranitidine hydrochloride 150 mg tabs completed ranitidine hydrochloride 150 mg tabs [facility] ([facility]) pantoprazole sodium 40 mg tbec completed pantoprazole sodium 40 mg tbec [facility] ([facility]) gabapentin 800 mg tabs completed gabapentin 800 mg tabs [facility] ([facility]) Ciprofloxacin 500 MG Oral Tablet ciprofloxacin 500 mg tablet ciprofloxacin 500 mg tablet completed ciprofloxaci n 500 MG Oral Tablet [facility] ([facility]) Acetaminophen 325 MG / Hydrocodone Rosmery trate 5 MG Oral Tablet hydrocodone 5 mg- acetaminophen 325 mg tablet hydrocodone 5 mg-acetaminophen 325 mg tablet completed acetaminophen 325 MG / hydrocodone bitartrate 5 MG Oral Tablet [facility] ([facility]) Ondansetron 4 MG Oral Tablet ondansetron HCl 4 mg tabl et ondansetron HCl 4 mg tablet completed ondansetron 4 M G Oral Tablet [facility] ([facility]) gabapentin 400 mg caps completed gabapentin 400 mg caps [facility] ([facility]) pantoprazole sodium 40 mg tbec completed pantoprazole sodium 40 mg tbec [facility] ([facility]) ondansetron odt 4 mg tbdp compl eted ondansetron odt 4 mg tbdp [facility] ([facility]) famotidine 40 mg tabs completed famotidine 40 mg tabs [facility] ([facility]) ondansetron odt 4 mg tbdp compl eted ondansetron odt 4 mg tbdp [facility] ([facility]) ondansetron odt 4 mg tbdp compl eted ondansetron odt 4 mg tbdp [facility] ([facility]) gabapentin 400 mg caps completed gabapentin 400 mg caps [facility] ([facility]) ondansetron odt 4 mg tbdp compl eted ondansetron odt 4 mg tbdp [facility] ([facility]) tizanidine 4 MG Oral Tablet tizanidine 4 mg tablet TAKE ONE TABLET BY MOUTH THREE TIMES A DAY NEEDED tizanidine 4 mg tablet TAKE ONE TABLET B Y MOUTH THREE TIMES A DAY NEEDED completed tizanidine 4 MG Oral Tablet [facility] ([facility]) chlorhexidine gluconate 1.2 MG/ML Mouthw macario chlorhexidine gluconate 0.12 % mouthwash chlorhexidine gluconate 0.12 % mouthwash completed chlorhexidine gluconate 1.2 MG/ML Mouthwash [facility] ([facility]) Acetaminophen 325 MG / Oxycodone Hydroch loride 5 MG Oral Tablet oxycodone- acetaminophen 5 mg-325 mg tablet oxycodone-acetaminophen 5 mg-325 mg tablet completed acetaminop hen 325 MG / oxycodone hydrochloride 5 MG Oral Tablet [facility] ([facility]) gabapentin 800 mg tabs completed gabapentin 800 mg tabs [facility] ([facility]) gabapentin 600 MG Oral Tablet gabapentin 600 mg tablet gabap entin 600 mg tablet completed gabapentin 600 MG Oral Tablet [facility] ([facility]) Ciprofloxacin 500 MG Oral Tablet ciprofl oxacin 500 mg tablet TAKE ONE TABLET BY MOUTH TWO TIMES A DAY ciprofloxacin 500 mg tablet TAKE ONE TAB LET BY MOUTH TWO TIMES A DAY completed ciprofloxa ru 500 MG Oral Tablet [facility] ([facility]) Ondansetron 4 MG Oral Tablet ondansetron HCl 4 mg tabl et ondansetron HCl 4 mg tablet completed ondansetron 4 M G Oral Tablet [facility] ([facility]) gabapentin 600 mg tabs completed gabapentin 600 mg tabs [facility] ([facility]) gabapentin 600 mg tabs completed gabapentin 600 mg tabs [facility] ([facility]) metoclopramide hydrochloride 10 mg tabs completed metoclopramide hydrochloride 10 mg tabs [facility] ([facility]) Ondansetron 4 MG Oral Tablet ondansetron HCl 4 mg tabl et ondansetron HCl 4 mg tablet completed ondansetron 4 M G Oral Tablet [facility] ([facility]) gabapentin 600 mg tabs completed gabapentin 600 mg tabs [facility] ([facility]) Amoxicillin 500 MG Oral Capsule amoxicillin 500 mg cap gonzalo amoxicillin 500 mg capsule completed amoxicillin 50 0 MG Oral Capsule [facility] ([facility]) Ondansetron 4 MG Oral Tablet ondansetron HCl 4 mg tabl et ondansetron HCl 4 mg tablet completed ondansetron 4 M G Oral Tablet [facility] ([facility]) Metoclopramide 5 MG Oral Tablet metoclopramide 5 mg ta blet metoclopramide 5 mg tablet completed metoclopramide 5 MG Oral Tablet [facility] ([facility]) famotidine 40 mg tabs completed famotidine 40 mg tabs [facility] ([facility]) pantoprazole sodium 40 mg tbec completed pantoprazole sodium 40 mg tbec [facility] ([facility]) Famotidine 20 MG Oral Tablet famotidine 20 mg tablet famotidine 20 mg tablet completed famotidine 20 MG Oral Tablet [facility] ([facility]) tizanidine 4 MG Oral Tablet tizanidine 4 mg tablet TAKE ONE TABLET BY MOUTH THREE TIMES A DAY NEEDED tizanidine 4 mg tablet TAKE ONE TABLET B Y MOUTH THREE TIMES A DAY NEEDED completed tizanidine 4 MG Oral Tablet [facility] ([facility]) gabapentin 600 MG Oral Tablet gabapentin 600 mg tablet gabap entin 600 mg tablet completed gabapentin 600 MG Oral Tablet [facility] ([facility]) gabapentin 600 MG Oral Tablet gabapentin 600 mg tablet gabap entin 600 mg tablet completed gabapentin 600 MG Oral Tablet [facility] ([facility]) Ciprofloxacin 500 MG Oral Tablet ciprofloxacin 500 mg tablet ciprofloxacin 500 mg tablet completed ciprofloxaci n 500 MG Oral Tablet [facility] ([facility]) metoclopramide hydrochloride 10 mg tabs completed metoclopramide hydrochloride 10 mg tabs [facility] ([facility]) gabapentin 600 mg tabs completed gabapentin 600 mg tabs [facility] ([facility]) Ondansetron 4 MG Oral Tablet ondansetron HCl 4 mg tabl et ondansetron HCl 4 mg tablet completed ondansetron 4 M G Oral Tablet [facility] ([facility]) pantoprazole 20 MG Delayed Release Oral Tablet [Protonix] Protonix 20 mg tablet,delayed release Take 1 tablet every day by oral route. Protonix 20 mg tablet,delayed release Take 1 tablet every day by oral route. 1 completed pantoprazole 20 MG Delayed Relea se Oral Tablet [Protonix] [facility] ([facility]) chlorhexidine gluconate 1.2 MG/ML Mouthw macario chlorhexidine gluconate 0.12 % mouthwash chlorhexidine gluconate 0.12 % mouthwash completed chlorhexidine gluconate 1.2 MG/ML Mouthwash [facility] ([facility]) Ciprofloxacin 500 MG Oral Tablet ciprofl oxacin 500 mg tablet TAKE ONE TABLET BY MOUTH TWO TIMES A DAY ciprofloxacin 500 mg tablet TAKE ONE TAB LET BY MOUTH TWO TIMES A DAY completed ciprofloxa ru 500 MG Oral Tablet [facility] ([facility]) gabapentin 600 MG Oral Tablet gabapentin 600 mg tablet gabap entin 600 mg tablet completed gabapentin 600 MG Oral Tablet [facility] ([facility]) Acetaminophen 325 MG / Hydrocodone Rosmery trate 5 MG Oral Tablet hydrocodone 5 mg- acetaminophen 325 mg tablet hydrocodone 5 mg-acetaminophen 325 mg tablet completed acetaminophen 325 MG / hydrocodone bitartrate 5 MG Oral Tablet [facility] ([facility]) gabapentin 400 mg caps completed gabapentin 400 mg caps [facility] ([facility]) gabapentin 800 mg tabs completed gabapentin 800 mg tabs [facility] ([facility]) gabapentin 800 mg tabs completed gabapentin 800 mg tabs [facility] ([facility]) ondansetron odt 4 mg tbdp compl eted ondansetron odt 4 mg tbdp [facility] ([facility]) cefdinir 300 MG Oral Capsule cefdinir 300 mg capsule cefdinir 30 0 mg capsule completed cefdinir 300 M G Oral Capsule [facility] ([facility]) Ondansetron 4 MG Oral Tablet ondansetron HCl 4 mg tabl et ondansetron HCl 4 mg tablet completed ondansetron 4 M G Oral Tablet [facility] ([facility]) tizanidine 4 MG Oral Tablet tizanidine 4 mg tablet TAKE ONE TABLET BY MOUTH THREE TIMES A DAY NEEDED tizanidine 4 mg tablet TAKE ONE TABLET B Y MOUTH THREE TIMES A DAY NEEDED completed tizanidine 4 MG Oral Tablet [facility] ([facility]) ranitidine hydrochloride 150 mg tabs completed ranitidine hydrochloride 150 mg tabs [facility] ([facility]) cefdinir 300 MG Oral Capsule cefdinir 300 mg capsule cefdinir 30 0 mg capsule completed cefdinir 300 M G Oral Capsule [facility] ([facility]) tizanidine 4 MG Oral Tablet tizanidine 4 mg tablet TAKE ONE TABLET BY MOUTH THREE TIMES A DAY NEEDED tizanidine 4 mg tablet TAKE ONE TABLET B Y MOUTH THREE TIMES A DAY NEEDED completed tizanidine 4 MG Oral Tablet [facility] ([facility]) gabapentin 600 MG Oral Tablet gabapentin 600 mg tablet gabap entin 600 mg tablet completed gabapentin 600 MG Oral Tablet [facility] ([facility]) metoclopramide hydrochloride 10 mg tabs completed metoclopramide hydrochloride 10 mg tabs [facility] ([facility]) pantoprazole 20 MG Delayed Release Oral Tablet [Protonix] Protonix 20 mg tablet,delayed release Take 1 tablet every day by oral route. Protonix 20 mg tablet,delayed release Take 1 tablet every day by oral route. 1 completed pantoprazole 20 MG Delayed Relea se Oral Tablet [Protonix] [facility] ([facility]) Ciprofloxacin 500 MG Oral Tablet ciprofloxacin 500 mg tablet ciprofloxacin 500 mg tablet completed ciprofloxaci n 500 MG Oral Tablet [facility] ([facility]) gabapentin 600 mg tabs completed gabapentin 600 mg tabs [facility] ([facility]) gabapentin 600 mg tabs completed gabapentin 600 mg tabs [facility] ([facility]) metoclopramide hydrochloride 10 mg tabs completed metoclopramide hydrochloride 10 mg tabs [facility] ([facility]) gabapentin 400 mg caps completed gabapentin 400 mg caps [facility] ([facility]) pantoprazole sodium 40 mg tbec completed pantoprazole sodium 40 mg tbec [facility] ([facility]) Metoclopramide 5 MG Oral Tablet metoclopramide 5 mg ta blet metoclopramide 5 mg tablet completed metoclopramide 5 MG Oral Tablet [facility] ([facility]) ondansetron odt 4 mg tbdp compl eted ondansetron odt 4 mg tbdp [facility] ([facility]) gabapentin 600 MG Oral Tablet gabapentin 600 mg tablet gabap entin 600 mg tablet completed gabapentin 600 MG Oral Tablet [facility] ([facility]) gabapentin 400 mg caps completed gabapentin 400 mg caps [facility] ([facility]) gabapentin 800 mg tabs completed gabapentin 800 mg tabs [facility] ([facility]) famotidine 40 mg tabs completed famotidine 40 mg tabs [facility] ([facility]) Famotidine 20 MG Oral Tablet famotidine 20 mg tablet famotidine 20 mg tablet completed famotidine 20 MG Oral Tablet [facility] ([facility]) Baclofen 10 MG Oral Tablet baclofen 10 m g tablet TAKE ONE TABLET BY MOUTH TWICE A DAY NEEDED baclofen 10 mg tablet TAKE ONE TABLET BY MOUTH TWICE A DAY NEEDED completed baclofen 10 MG Oral Tablet [facility] ([facility]) cefdinir 300 MG Oral Capsule cefdinir 300 mg capsule cefdinir 30 0 mg capsule completed cefdinir 300 M G Oral Capsule [facility] ([facility]) pantoprazole 20 MG Delayed Release Oral Tablet [Protonix] Protonix 20 mg tablet,delayed release Take 1 tablet every day by oral route. Protonix 20 mg tablet,delayed release Take 1 tablet every day by oral route. 1 completed pantoprazole 20 MG Delayed Relea se Oral Tablet [Protonix] [facility] ([facility]) gabapentin 400 mg caps completed gabapentin 400 mg caps [facility] ([facility]) metoclopramide hydrochloride 10 mg tabs completed metoclopramide hydrochloride 10 mg tabs [facility] ([facility]) gabapentin 600 mg tabs completed gabapentin 600 mg tabs [facility] ([facility]) cefdinir 300 MG Oral Capsule cefdinir 300 mg capsule cefdinir 30 0 mg capsule completed cefdinir 300 M G Oral Capsule [facility] ([facility]) Metronidazole 500 MG Oral Tablet metroni dazole 500 mg tablet TAKE ONE TABLET BY MOUTH EVERY 8 HOURS metronidazole 500 mg tablet TAKE ONE TAB LET BY MOUTH EVERY 8 HOURS completed metronidazole 5 00 MG Oral Tablet [facility] ([facility]) gabapentin 400 mg caps completed gabapentin 400 mg caps [facility] ([facility]) Ciprofloxacin 500 MG Oral Tablet ciprofloxacin 500 mg tablet ciprofloxacin 500 mg tablet completed ciprofloxaci n 500 MG Oral Tablet [facility] ([facility]) famotidine 40 mg tabs completed famotidine 40 mg tabs [facility] ([facility]) Famotidine 40 MG Oral Tablet famotidine 40 mg tablet famotidine 40 mg tablet completed famotidine 40 MG Oral Tablet [facility] ([facility]) Baclofen 10 MG Oral Tablet baclofen 10 m g tablet TAKE ONE TABLET BY MOUTH TWICE A DAY NEEDED baclofen 10 mg tablet TAKE ONE TABLET BY MOUTH TWICE A DAY NEEDED completed baclofen 10 MG Oral Tablet [facility] ([facility]) gabapentin 800 mg tabs completed gabapentin 800 mg tabs [facility] ([facility]) ondansetron odt 4 mg tbdp compl eted ondansetron odt 4 mg tbdp [facility] ([facility]) gabapentin 600 mg tabs completed gabapentin 600 mg tabs [facility] ([facility]) ondansetron odt 4 mg tbdp compl eted ondansetron odt 4 mg tbdp [facility] ([facility]) Baclofen 10 MG Oral Tablet baclofen 10 m g tablet TAKE ONE TABLET BY MOUTH TWICE A DAY NEEDED baclofen 10 mg tablet TAKE ONE TABLET BY MOUTH TWICE A DAY NEEDED completed baclofen 10 MG Oral Tablet [facility] ([facility]) 24 HR Nicotine 0.583 MG/HR Transdermal P atc nicotine 14 mg/24 hr daily transdermal patch APPLY 1 PATCH TO SKIN ONCE DAILY nicotine 14 mg/24 hr daily transdermal patch APPLY 1 PATCH TO SKIN ONCE DAILY completed 24 HR nicotine 0.583 MG/HR Transdermal System [facility] ([facility]) famotidine 40 mg tabs completed famotidine 40 mg tabs [facility] ([facility]) gabapentin 600 mg tabs completed gabapentin 600 mg tabs [facility] ([facility]) chlorhexidine gluconate 1.2 MG/ML Mouthw macario chlorhexidine gluconate 0.12 % mouthwash chlorhexidine gluconate 0.12 % mouthwash completed chlorhexidine gluconate 1.2 MG/ML Mouthwash [facility] ([facility]) chlorhexidine gluconate 1.2 MG/ML Mouthw macario chlorhexidine gluconate 0.12 % mouthwash chlorhexidine gluconate 0.12 % mouthwash completed chlorhexidine gluconate 1.2 MG/ML Mouthwash [facility] ([facility]) 24 HR Nicotine 0.583 MG/HR Transdermal P atch nicotine 14 mg/24 hr daily transdermal patch APPLY 1 PATCH TO SKIN ONCE DAILY nicotine 14 mg/24 hr daily transdermal patch APPLY 1 PATCH TO SKIN ONCE DAILY completed 24 HR nicotine 0.583 MG/HR Transdermal System [facility] ([facility]) metoclopramide hydrochloride 10 mg tabs completed metoclopramide hydrochloride 10 mg tabs [facility] ([facility]) 24 HR Nicotine 0.583 MG/HR Transdermal P atch nicotine 14 mg/24 hr daily transdermal patch APPLY 1 PATCH TO SKIN ONCE DAILY nicotine 14 mg/24 hr daily transdermal patch APPLY 1 PATCH TO SKIN ONCE DAILY completed 24 HR nicotine 0.583 MG/HR Transdermal System [facility] ([facility]) Metronidazole 500 MG Oral Tablet metroni dazole 500 mg tablet TAKE ONE TABLET BY MOUTH EVERY 8 HOURS metronidazole 500 mg tablet TAKE ONE TAB LET BY MOUTH EVERY 8 HOURS completed metronidazole 5 00 MG Oral Tablet [facility] ([facility]) Famotidine 40 MG Oral Tablet famotidine 40 mg tablet famotidine 40 mg tablet completed famotidine 40 MG Oral Tablet [facility] ([facility]) Amoxicillin 500 MG Oral Capsule amoxicillin 500 mg cap gonzalo amoxicillin 500 mg capsule completed amoxicillin 50 0 MG Oral Capsule [facility] ([facility]) gabapentin 600 mg tabs completed gabapentin 600 mg tabs [facility] ([facility]) pantoprazole 20 MG Delayed Release Oral Tablet [Protonix] Protonix 20 mg tablet,delayed release Take 1 tablet every day by oral route. Protonix 20 mg tablet,delayed release Take 1 tablet every day by oral route. 1 completed pantoprazole 20 MG Delayed Relea se Oral Tablet [Protonix] [facility] ([facility]) ranitidine hydrochloride 150 mg tabs completed ranitidine hydrochloride 150 mg tabs [facility] ([facility]) Famotidine 20 MG Oral Tablet famotidine 20 mg tablet famotidine 20 mg tablet completed famotidine 20 MG Oral Tablet [facility] ([facility]) ranitidine hydrochloride 150 mg tabs completed ranitidine hydrochloride 150 mg tabs [facility] ([facility]) Promethazine Hydrochloride 25 MG Oral Tablet promethaz ine 25 mg tablet promethazine 25 mg tablet completed promethazine hydrochloride 25 MG Oral Tablet [facility] ([facility]) ranitidine hydrochloride 150 mg tabs completed ranitidine hydrochloride 150 mg tabs [facility] ([facility]) ondansetron odt 4 mg tbdp compl eted ondansetron odt 4 mg tbdp [facility] ([facility]) famotidine 40 mg tabs completed famotidine 40 mg tabs [facility] ([facility]) gabapentin 400 mg caps completed gabapentin 400 mg caps [facility] ([facility]) chlorhexidine gluconate 1.2 MG/ML Mouthw macario chlorhexidine gluconate 0.12 % mouthwash chlorhexidine gluconate 0.12 % mouthwash completed chlorhexidine gluconate 1.2 MG/ML Mouthwash [facility] ([facility]) famotidine 40 mg tabs completed famotidine 40 mg tabs [facility] ([facility]) Famotidine 20 MG Oral Tablet famotidine 20 mg tablet famotidine 20 mg tablet completed famotidine 20 MG Oral Tablet [facility] ([facility]) metoclopramide hydrochloride 10 mg tabs completed metoclopramide hydrochloride 10 mg tabs [facility] ([facility]) Famotidine 20 MG Oral Tablet famotidine 20 mg tablet famotidine 20 mg tablet completed famotidine 20 MG Oral Tablet [facility] ([facility]) gabapentin 600 mg tabs completed gabapentin 600 mg tabs [facility] ([facility]) Famotidine 20 MG Oral Tablet famotidine 20 mg tablet famotidine 20 mg tablet completed famotidine 20 MG Oral Tablet [facility] ([facility]) Acetaminophen 325 MG / Hydrocodone Rosmery trate 5 MG Oral Tablet hydrocodone 5 mg- acetaminophen 325 mg tablet hydrocodone 5 mg-acetaminophen 325 mg tablet completed acetaminophen 325 MG / hydrocodone bitartrate 5 MG Oral Tablet [facility] ([facility]) Metoclopramide 10 MG Oral Tablet metoclo pramide 10 mg tablet TAKE ONE TABLET BY MOUTH BEFORE MEALS THREE TIMES A DAY AND AT BEDTIME metoclopramide 10 mg tablet TAKE ONE TABLET BY MOUTH BEFORE MEALS THREE TIMES A DAY AND AT BEDTIME completed metoclopramide 10 MG Oral Tablet [facility] ([facility]) ranitidine hydrochloride 150 mg tabs completed ranitidine hydrochloride 150 mg tabs [facility] ([facility]) gabapentin 800 mg tabs completed gabapentin 800 mg tabs [facility] ([facility]) ondansetron odt 4 mg tbdp compl eted ondansetron odt 4 mg tbdp [facility] ([facility]) 24 HR Nicotine 0.583 MG/HR Transdermal P atch nicotine 14 mg/24 hr daily transdermal patch APPLY 1 PATCH TO SKIN ONCE DAILY nicotine 14 mg/24 hr daily transdermal patch APPLY 1 PATCH TO SKIN ONCE DAILY completed 24 HR nicotine 0.583 MG/HR Transdermal System [facility] ([facility]) gabapentin 800 mg tabs completed gabapentin 800 mg tabs [facility] ([facility]) gabapentin 800 mg tabs completed gabapentin 800 mg tabs [facility] ([facility]) gabapentin 400 mg caps completed gabapentin 400 mg caps [facility] ([facility]) gabapentin 400 mg caps completed gabapentin 400 mg caps [facility] ([facility]) Baclofen 10 MG Oral Tablet baclofen 10 m g tablet TAKE ONE TABLET BY MOUTH TWICE A DAY NEEDED baclofen 10 mg tablet TAKE ONE TABLET BY MOUTH TWICE A DAY NEEDED completed baclofen 10 MG Oral Tablet [facility] ([facility]) gabapentin 600 MG Oral Tablet gabapentin 600 mg tablet gabap entin 600 mg tablet completed gabapentin 600 MG Oral Tablet [facility] ([facility]) Metronidazole 500 MG Oral Tablet metronidazole 500 mg tablet metronidazole 500 mg tablet completed metronidazol e 500 MG Oral Tablet [facility] ([facility]) sennosides, DETENTION 8.6 MG Oral Tablet [Senna-Time] senna 8.6 mg tablet senna 8.6 mg tablet completed sennosi shawn, DETENTION 8.6 MG Oral Tablet [Senna-Time] [facility] ([facility]) Famotidine 40 MG Oral Tablet famotidine 40 mg tablet famotidine 40 mg tablet completed famotidine 40 MG Oral Tablet [facility] ([facility]) pantoprazole 20 MG Delayed Release Oral Tablet [Protonix] Protonix 20 mg tablet,delayed release Take 1 tablet every day by oral route. Protonix 20 mg tablet,delayed release Take 1 tablet every day by oral route. 1 completed pantoprazole 20 MG Delayed Relea se Oral Tablet [Protonix] [facility] ([facility]) tizanidine 4 MG Oral Tablet tizanidine 4 mg tablet TAKE ONE TABLET BY MOUTH THREE TIMES A DAY NEEDED tizanidine 4 mg tablet TAKE ONE TABLET B Y MOUTH THREE TIMES A DAY NEEDED completed tizanidine 4 MG Oral Tablet [facility] ([facility]) Ondansetron 4 MG Oral Tablet ondansetron HCl 4 mg tabl et ondansetron HCl 4 mg tablet completed ondansetron 4 M G Oral Tablet [facility] ([facility]) pantoprazole sodium 40 mg tbec completed pantoprazole sodium 40 mg tbec [facility] ([facility]) metoclopramide hydrochloride 10 mg tabs completed metoclopramide hydrochloride 10 mg tabs [facility] ([facility]) metoclopramide hydrochloride 10 mg tabs completed metoclopramide hydrochloride 10 mg tabs [facility] ([facility]) metoclopramide hydrochloride 10 mg tabs completed metoclopramide hydrochloride 10 mg tabs [facility] ([facility]) gabapentin 800 mg tabs completed gabapentin 800 mg tabs [facility] ([facility]) ranitidine hydrochloride 150 mg tabs completed ranitidine hydrochloride 150 mg tabs [facility] ([facility]) Ondansetron 4 MG Oral Tablet ondansetron HCl 4 mg tabl et ondansetron HCl 4 mg tablet completed ondansetron 4 M G Oral Tablet [facility] ([facility]) gabapentin 800 mg tabs completed gabapentin 800 mg tabs [facility] ([facility]) gabapentin 800 mg tabs completed gabapentin 800 mg tabs [facility] ([facility]) Amoxicillin 500 MG Oral Capsule amoxicillin 500 mg cap gonzalo amoxicillin 500 mg capsule completed amoxicillin 50 0 MG Oral Capsule [facility] ([facility]) pantoprazole 20 MG Delayed Release Oral Tablet [Protonix] Protonix 20 mg tablet,delayed release Take 1 tablet every day by oral route. Protonix 20 mg tablet,delayed release Take 1 tablet every day by oral route. 1 completed pantoprazole 20 MG Delayed Relea se Oral Tablet [Protonix] [facility] ([facility]) pantoprazole sodium 40 mg tbec completed pantoprazole sodium 40 mg tbec [facility] ([facility]) Metoclopramide 10 MG Oral Tablet metoclo pramide 10 mg tablet TAKE ONE TABLET BY MOUTH BEFORE MEALS THREE TIMES A DAY AND AT BEDTIME metoclopramide 10 mg tablet TAKE ONE TABLET BY MOUTH BEFORE MEALS THREE TIMES A DAY AND AT BEDTIME completed metoclopramide 10 MG Oral Tablet [facility] ([facility]) ranitidine hydrochloride 150 mg tabs completed ranitidine hydrochloride 150 mg tabs [facility] ([facility]) Insurance Providers Payer name Policy type / Coverage type Policy ID Covered libertarian ID Covered libertarian's relationship to luna Policy Luna Plan Information [facility] [id number] SP [id number] MEDICARE [id number] SP [id number] A [id number] A [facility] [id number] Self [id number] [facility] [id number] [facility] [place] Medicaid [id number] Self [id number] PENDING SALE TO [facility] [id number] SP [id number] PENDING SALE TO [facility] [id number] SP [id number] MEDICAID [id number] SP [id number] [facility] S[facility] [id number] [id number] [facility] [id number] [facility]-Commercial [id number] [facility]-Medicaid [id number] [facility]-Medicaid [id number] ANSI-Medicaid [id number] ANSI-Commercial [id number] ANSI-Medicaid [id number] ANSI-Commercial [id number] ANSI-Medicaid [id number] ANSI-Medicaid [id number] ANSI-Medicaid [id number] ANSI-Commercial [id number] ANSI-Medicaid [id number] SELF PAY ONLY [id number] SP [id number] PENDING SALE TO [facility] [id number] SP [id number] ANSI-Medicaid [id number] ANSI-Medicaid [id number] ANSI-Commercial [id number] [facility] [id number] ANSI-Medicaid [id number] ANSI-Medicaid [id number] ANSI-Commercial [id number] [id number] ANSI-Medicaid [id number] ANSI-Medicaid [id number] ANSI-Commercial [id number] ANSI-Commercial [id number] ANSI-Medicaid [id number] ANSI-Medicaid [id number] ANSI-Medicaid [id number] ANSI-Medicaid [id number] ANSI-Commercial [id number] ANSI-Medicaid [id number] ANSI-Medicaid [id number] ANSI-Commercial [id number]-[id number]-[id number] ANSI-Commercial [id number] ANSI-Medicaid [id number] ANSI-Medicaid [id number] ANS-Medicaid [id number] [facility]-Medicaid [id number] ANSI-Commercial [id number]-p974-[id number] [id number]-vrrv-[id number] ANS-Medicaid [id number] ANSI-Commercial [id number] ANS-Medicaid [id number] ANS-Medicaid [id number] ANSI-Medicaid [id number] ANSI-Commercial [id number]-[id number] [id number]-b0l6-1n0w-[id number] ANSI-Medicaid [id number] ANSI-Medicaid [id number] ANSI-Commercial [id number]-[id number]-4ohh-[id number] ANSI-Medicaid [id number] ANSI-Medicaid [id number] ANSI-Commercial [id number] ANSI-Medicaid [id number] ANSI-Commercial [id number]-[id number] ANSI-Medicaid [id number] ANSI-Medicaid [id number] ANSI-Medicaid [id number] ANSI-Commercial [id number]-q3u5-9404-aso4-[id number] [id number]-v5o1-7152-jui2-[id number] ANSI-Medicaid [id number] ANSI-Commercial [id number]-[id number]-[id number] [id number]-[id number] [facility] [id number] [facility] [id number] ANSI-Commercial [id number]-93r8-[id number]-16w1-[id number] ANSI-Medicaid [id number] ANSI-Medicaid [id number] ANSI-Commercial [id number]-rfsg-[id number]-buyn-[id number] ANSI-Medicaid [id number] ANSI-Commercial [id number]-[id number]-j160-[id number] ANSI-Medicaid [id number] ANSI-Medicaid [id number] ANSI-Medicaid [id number] ANSI-Medicaid [id number] ANSI-Commercial [id number] ANSI-Medicaid [id number] ANSI-Commercial [id number] ANSI-Medicaid [id number] ANSI-Commercial [id number]-2112-197f-[id number] ANSI-Medicaid [id number] ANSI-Medicaid [id number] ANSI-Medicaid [id number] ANSI-Medicaid [id number] ANSI-Commercial [id number]-[id number]-[id number] ANSI-Medicaid [id number] ANSI-Medicaid [id number] ANSI-Commercial [id number]-[id number]-[id number] SELF PAY UNAVAILABLE SP UNAVAILA BLE [employer] [id number] SP [id number] AXEL [id number] SP [id number] [facility] AXEL [id number] SP [id number] [facility] Medigap Part B [id number] Self [id number] [facility] [id number] SP [id number] SELF PAY ONLY UNAVAILABLE SP UNAV AILABLE [facility]) O [id number] S [id number] SELF PAY ONLY SELF PAY ONLY [id number] Self SELF PAY ONLY SELF PAY SELF PAY [id number] Arminda f SELF PAY [facility]) O [id number] S [id number] P UNAVAILABLE UNAVAILA BLE [id number] AXEL CARE CT O [id number] S [id number] [employer] COMM[employer] M[employer]O [id number] SP [id number] [place] [id number] SP [id number] [facility]) O [id number] S [id number] MEDICAID [id number] SP [id number] PRIVATE PAY NAV JANE SR [address] [employer] COMM[employer] XIX [id number] MEDICAID M [id number] S [id number] [facility] [id number] SP [id number] ANSI-Medicaid [id number] Problems, Conditions, and Diagnoses Code Display Name Description Problem Type Effective Dates Data Source(s) 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 Diagnosis 02/23/2020 10:03:45 AM [facility] K21.9 Gastro-esophageal reflux disease without esophagitis Gastro-esophageal reflux disease without esophagitis Diagnosis 02/23/2020 10:03:45 AM [facility] R13.10 [id number] Dysphagia, unspecified type Problem 06/17/19 12:00:00 AM EST eCW1 ([facility]) K21.9 [id number] Gastroesophageal ref lux disease, unspecified whether esophagitis present Problem 06/17/2020 12:00:00 AM EST eCW1 ([facility]) G89.29 [id number] Other chronic pain Problem 03/28/2020 12:00: 00 AM EST eCW1 ([facility]) Surgeries/Procedures Procedure Description Date Indications Data Source(s) MRI, lumbar spine, w/o contrast 04/26/2020 12:00:00 AM EST [facility] ([facility]) Immunization: Flublok Quadrivalent (18 years & older) 0.5mL IM (Influenza) 03/28/2020 12:00:00 AM EST eCW1 ([facility]) Results ID Date Data Source [id number] 03/03/2021 12:00:00 AM EDT [facility] Name Value Range Interpretation Code Description Data Elvira rce(s) Supporting Document(s) SARS-CoV-2 NEGATIVE [facility] This lab was ordered by [facility]-C[facility] and reported by [employer]. ID Date Data Source [id number] 03/03/2021 12:00:00 AM EDT [facility] ([facility]) Name Value Range Interpretation Code Description Data Elvira rce(s) Supporting Document(s) SARS-CoV-2 (COVID-19) RNA [Presence] in Respiratory specimen by LEONARDO with probe detection negative negative Sars-cov-2 [facility] ([facility]) ID Date Data Source [id number] 03/03/2021 12:00:00 AM EDT [facility] ([facility]) Name Value Range Interpretation Code Description Data Elvira rce(s) Supporting Document(s) ID Date Data Source SYPHILIS ANTIBODY (RPR SCREEN) 02/22/2021 12:00:00 AM EDT eC W1 ([facility]) Name Value Range Interpretation Code Description Data Elvira rce(s) Supporting Document(s) NONREACTIVE NONREACTIVE SYPHILIS eCW1 ([facility]) ID Date Data Source LIPASE 02/22/2021 12:00:00 AM EDT eCW1 ([facility]) Name Value Range Interpretation Code Description Data Elvira rce(s) Supporting Document(s) [phone] LIPASE eCW1 ([facility]) ID Date Data Source [id number] 02/22/2021 12:00:00 AM EDT eCW1 ([facility]) Name Value Range Interpretation Code Description Data Elvira rce(s) Supporting Document(s) HIV 1and2 ANTIBODY SCREEN eCW1 ([facility]) ID Date Data Source Comprehensive Metabolic Profile (CMP) 02/22/2021 12:00:00 AM EDT eCW1 ([facility]) Name Value Range Interpretation Code Description Data Elvira rce(s) Supporting Document(s) 89 70-100 GLUCOSE, FASTING eCW1 ([facility]) > 60.0 >56 GLOMERULAR FILTRATION RATE eCW 1 ([facility]) 0.92 0.70-1.30 CREATININE FOR GFR eCW1 ([facility]) 15 7-18 BLOOD UREA NITROGEN eCW1 (On license of [facility]) 4.2 3.5-5.1 POTASSIUM SERUM eCW1 ([facility]) 107 98-107 CHLORIDE LEVEL eCW1 ([facility]) 140 136-145 SODIUM LEVEL eCW1 ([facility]) 30 21-32 CARBON DIOXIDE LEVEL eCW1 ([facility]) 8.8 8.5-10.1 CALCIUM LEVEL eCW1 ([facility]) 21 7-37 AST/SGOT eCW1 ([facility]) 17 12-78 ALT/SGPT eCW1 ([facility]) 0.4 0.2-1.0 BILIRUBIN,TOTAL eCW1 ([facility]) 88 45-117 ALKALINE PHOSPHATASE eCW1 ([facility]) 6.9 6.4-8.2 TOTAL PROTEIN eCW1 ([facility]) 1.1 ALBUMIN/GLOBULIN RATIO eCW1 ([facility]) 3.6 3.2-5.2 ALBUMIN eCW1 ([facility]) ID Date Data Source CHLAMYDIA & GC DNA AMPLIFICAT 02/22/2021 12:00:00 AM EDT eCW 1 ([facility]) Name Value Range Interpretation Code Description Data Elvira rce(s) Supporting Document(s) Chlamydia trachomatis rRNA [Presence] in Unspecified specimen by Probe and target amplification method NEGATIVE NEGATIVE CHLAMYDIA DNA AMPLIFICATION eCW1 ([facility]) ID Date Data Source CBC with Differential 02/22/2021 12:00:00 AM EDT eCW1 ([facility]) Name Value Range Interpretation Code Description Data Elvira rce(s) Supporting Document(s) 8.4 4.0-10.0 WHITE BLOOD COUNT eCW1 ([facility]) 5.02 4.30-6.10 RED BLOOD COUNT eCW1 ([facility]) 15.2 13.5-17.5 HEMOGLOBIN eCW1 ([facility]) 46.4 42.0-52.0 HEMATOCRIT eCW1 ([facility]) 92.4 80.0-96.0 MEAN CORPUSCULAR VOLUME e CW1 ([facility]) 32.8 32.0-36.5 MEAN CORPUSCULAR HGB CONC eCW1 ([facility]) 13.2 11.5-14.5 RED CELL DISTRIBUTION WID TH eCW1 ([facility]) 183 150-450 PLATELET COUNT, AUTOMATED eCW1 ([facility]) 30.3 27.0-33.0 MEAN CORPUSCULAR HEMOGLOB IN eCW1 ([facility]) 7.3 2.0-8.0 MONO % eCW1 ([facility]) 22.2 24.0-44.0 LYMPH % eCW1 ([facility]) 68.5 36.0-66.0 NEUTROPHILS % eCW1 ([facility]) 0.6 0.0-1.0 BASO % eCW1 ([facility]) 5.8 1.5-8.5 NEUTROPHILS # eCW1 ([facility]) 1.9 1.5-5.0 LYMPH # eCW1 ([facility]) 1.0 0.0-3.0 EOS % eCW1 ([facility]) 0.1 0.0-0.2 BASO # eCW1 ([facility]) 0.6 0.0-0.8 MONO # eCW1 ([facility]) 0.1 0.0-0.5 EOS # eCW1 ([facility]) ID Date Data Source [id number] 02/22/2021 12:00:00 AM EDT eCW1 ([facility]) Name Value Range Interpretation Code Description Data Elvira rce(s) Supporting Document(s) 61 [id number] AMYLASE eCW1 ([facility]) ID Date Data Source [id number] 01/13/2021 12:00:00 AM EDT [place] ([facility]) Name Value Range Interpretation Code Description Data Elvira rce(s) Supporting Document(s) SARS-CoV-2 (COVID-19) RNA [Presence] in Respiratory specimen by LEONARDO with probe detection negative negative Sars-cov-2 [place] ([facility]) ID Date Data Source [id number] 01/13/2021 12:00:00 AM EDT [place] ([facility]) Name Value Range Interpretation Code Description Data Elvira rce(s) Supporting Document(s) ID Date Data Source [id number] 01/13/2021 12:00:00 AM EDT [place] ([facility]) Name Value Range Interpretation Code Description Data Elvira rce(s) Supporting Document(s) SARS-CoV-2 (COVID-19) RNA [Presence] in Respiratory specimen by LEONARDO with probe detection negative negative Sars-cov-2 [place] ([facility]) ID Date Data Source [id number] 01/13/2021 12:00:00 AM EDT [place] ([facility]) Name Value Range Interpretation Code Description Data Elvira rce(s) Supporting Document(s) ID Date Data Source [id number] 01/13/2021 12:00:00 AM EDT [place] ([facility]) Name Value Range Interpretation Code Description Data Elvira rce(s) Supporting Document(s) SARS-CoV-2 (COVID-19) RNA [Presence] in Respiratory specimen by LEONARDO with probe detection negative negative Sars-cov-2 [place] ([facility] [employer] [facility]) ID Date Data Source [id number] 01/13/2021 12:00:00 AM EDT [place] ([facility] [employer] [facility]) Name Value Range Interpretation Code Description Data Elvira rce(s) Supporting Document(s) ID Date Data Source [id number] 01/13/2021 12:00:00 AM EDT [facility] Name Value Range Interpretation Code Description Data Elvira rce(s) Supporting Document(s) SARS-CoV-2 NEGATIVE [facility] This lab was ordered by [facility] [facility]-COVID[facility] and reported by [employer]. ID Date Data Source [id number] 01/13/2021 12:00:00 AM EDT [place] ([facility]) Name Value Range Interpretation Code Description Data Elvira rce(s) Supporting Document(s) SARS-CoV-2 (COVID-19) RNA [Presence] in Respiratory specimen by LEONARDO with probe detection negative negative Sars-cov-2 [place] ([facility]) ID Date Data Source [id number] 01/13/2021 12:00:00 AM EDT [place] ([facility] [employer] [facility]) Name Value Range Interpretation Code Description Data Elvira rce(s) Supporting Document(s) ID Date Data Source [id number] 10/03/2020 12:00:00 AM EDT [place] ([facility]) Name Value Range Interpretation Code Description Data Elvira rce(s) Supporting Document(s) SARS-CoV-2 (COVID-19) RNA [Presence] in Respiratory specimen by LEONARDO with probe detection negative negative Sars-cov-2 [place] ([employer] [employer] [facility]) ID Date Data Source [id number] 10/03/2020 [facility]00[facility] Name Value Range Interpretation Code Description Data Elvira rce(s) Supporting Document(s) ID Date Data Source [id number] 10/03/2020 12:00:00 AM EDT [facility]) Name Value Range Interpretation Code Description Data Elvira rce(s) Supporting Document(s) SARS-CoV-2 (COVID-19) RNA [Presence] in Respiratory specimen by LEONARDO with probe detection negative negative Sars-cov-2 [facility]) ID Date Data Source [id number] 10/03/2020 12:00:00 AM EDT [facility]) Name Value Range Interpretation Code Description Data Elvira rce(s) Supporting Document(s) ID Date Data Source [id number] 10/03/2020 12:00:00 AM EDT [facility]) Name Value Range Interpretation Code Description Data Elvira rce(s) Supporting Document(s) SARS-CoV-2 (COVID-19) RNA [Presence] in Respiratory specimen by LEONARDO with probe detection negative negative Sars-cov-2 [facility]) ID Date Data Source [id number] 10/03/2020 12:00:00 AM EDT [facility]) Name Value Range Interpretation Code Description Data Elvira rce(s) Supporting Document(s) ID Date Data Source [id number] 10/03/2020 12:00:00 AM EDT [place] ([facility]) Name Value Range Interpretation Code Description Data Elvira rce(s) Supporting Document(s) ID Date Data Source [id number] 10/03/2020 12:00:00 AM EDT [facility]) Name Value Range Interpretation Code Description Data Elvira rce(s) Supporting Document(s) SARS-CoV-2 (COVID-19) RNA [Presence] in Respiratory specimen by LEONARDO with probe detection negative negative Sars-cov-2 [place] ([facility]) ID Date Data Source [id number] 10/03/2020 12:00:00 AM EDT [place] ([facility]) Name Value Range Interpretation Code Description Data Elvira rce(s) Supporting Document(s) ID Date Data Source [id number] 10/03/2020 12:00:00 AM EDT [place] ([facility]) Name Value Range Interpretation Code Description Data Elvira rce(s) Supporting Document(s) SARS-CoV-2 (COVID-19) RNA [Presence] in Respiratory specimen by LEONARDO with probe detection negative negative Sars-cov-2 [place] ([facility]) ID Date Data Source [id number] 10/03/2020 12:00:00 AM EDT [place] ([facility]) Name Value Range Interpretation Code Description Data Elvira rce(s) Supporting Document(s) ID Date Data Source [id number] 10/03/2020 12:00:00 AM EDT [place] ([facility]) Name Value Range Interpretation Code Description Data Elvira rce(s) Supporting Document(s) SARS-CoV-2 (COVID-19) RNA [Presence] in Respiratory specimen by LEONARDO with probe detection negative negative Sars-cov-2 [place] ([facility]) ID Date Data Source [id number] 10/03/2020 12:00:00 AM EDT [place] ([facility]) Name Value Range Interpretation Code Description Data Elvira rce(s) Supporting Document(s) ID Date Data Source [id number] 10/03/2020 12:00:00 AM EDT [place] ([facility]) Name Value Range Interpretation Code Description Data Elvira rce(s) Supporting Document(s) SARS-CoV-2 (COVID-19) RNA [Presence] in Respiratory specimen by LEONARDO with probe detection negative negative Sars-cov-2 [place] ([facility]) ID Date Data Source [id number] 10/03/2020 12:00:00 AM EDT [place] ([facility]) Name Value Range Interpretation Code Description Data Elvira rce(s) Supporting Document(s) ID Date Data Source [id number] 10/03/2020 12:00:00 AM EDT [place] ([facility]) Name Value Range Interpretation Code Description Data Elvira rce(s) Supporting Document(s) SARS-CoV-2 (COVID-19) RNA [Presence] in Respiratory specimen by LEONARDO with probe detection negative negative Sars-cov-2 [facility]) ID Date Data Source [id number] 10/03/2020 12:00:00 AM EDT [facility] Name Value Range Interpretation Code Description Data Elvira rce(s) Supporting Document(s) SARS-CoV-2 NEGATIVE [facility] This lab was ordered by [facility] [employer] [facility] and reported by [employer]. ID Date Data Source [id number] 09/26/2020 12:00:00 AM EDT [place] ([facility]) Name Value Range Interpretation Code Description Data Elvira rce(s) Supporting Document(s) SARS-CoV-2 (COVID-19) RNA [Presence] in Respiratory specimen by LEONARDO with probe detection negative negative Sars-cov-2 [place] ([facility]) ID Date Data Source [id number] 09/26/2020 12:00:00 AM EDT [place] ([facility]) Name Value Range Interpretation Code Description Data Elvira rce(s) Supporting Document(s) ID Date Data Source [id number] 09/26/2020 12:00:00 AM EDT [place] ([facility]) Name Value Range Interpretation Code Description Data Elvira rce(s) Supporting Document(s) SARS-CoV-2 (COVID-19) RNA [Presence] in Respiratory specimen by LEONARDO with probe detection negative negative Sars-cov-2 [place] ([facility]) ID Date Data Source [id number] 09/26/2020 12:00:00 AM EDT [place] ([facility]) Name Value Range Interpretation Code Description Data Elvira rce(s) Supporting Document(s) ID Date Data Source [id number] 09/26/2020 12:00:00 AM EDT [place] ([facility]) Name Value Range Interpretation Code Description Data Elvira rce(s) Supporting Document(s) SARS-CoV-2 (COVID-19) RNA [Presence] in Respiratory specimen by LEONARDO with probe detection negative negative Sars-cov-2 [place] ([facility]) ID Date Data Source [id number] 09/26/2020 12:00:00 AM EDT [place] ([facility]) Name Value Range Interpretation Code Description Data Elvira rce(s) Supporting Document(s) ID Date Data Source [id number] 09/26/2020 12:00:00 AM EDT [place] ([facility]) Name Value Range Interpretation Code Description Data Elvira rce(s) Supporting Document(s) SARS-CoV-2 (COVID-19) RNA [Presence] in Respiratory specimen by LEONARDO with probe detection negative negative Sars-cov-2 [place] ([facility]) ID Date Data Source [id number] 09/26/2020 12:00:00 AM EDT [place] ([facility]) Name Value Range Interpretation Code Description Data Elvira rce(s) Supporting Document(s) ID Date Data Source [id number] 09/26/2020 12:00:00 AM EDT [place] ([facility] [employer] [facility] [employer] [facility]) Name Value Range Interpretation Code Description Data Elvira rce(s) Supporting Document(s) SARS-CoV-2 (COVID-19) RNA [Presence] in Respiratory specimen by LEONARDO with probe detection negative negative Sars-cov-2 [place] ([employer] [facility]) ID Date Data Source [id number] 09/26/2020 12:00:00 AM EDT [place] ([facility] [employer] [employer] [facility]) Name Value Range Interpretation Code Description Data Elvira rce(s) Supporting Document(s) ID Date Data Source [id number] 09/26/2020 12:00:00 AM EDT [facility] Name Value Range Interpretation Code Description Data Elvira rce(s) Supporting Document(s) SARS-CoV-2 NEGATIVE [facility] This lab was ordered by [employer] [facility] and reported by [employer]. ID Date Data Source [id number] 09/26/2020 12:00:00 AM EDT [place] ([facility]) Name Value Range Interpretation Code Description Data Elvira rce(s) Supporting Document(s) SARS-CoV-2 (COVID-19) RNA [Presence] in Respiratory specimen by LEONARDO with probe detection negative negative Sars-cov-2 [place] ([facility]) ID Date Data Source [id number] 09/26/2020 12:00:00 AM EDT [place] ([facility] [employer] [facility]) Name Value Range Interpretation Code Description Data Elvira rce(s) Supporting Document(s) ID Date Data Source [id number] 09/26/2020 12:00:00 AM EDT [place] ([facility] [employer] [facility]) Name Value Range Interpretation Code Description Data Elvira rce(s) Supporting Document(s) SARS-CoV-2 (COVID-19) RNA [Presence] in Respiratory specimen by LEONARDO with probe detection negative negative Sars-cov-2 [place] ([facility]) ID Date Data Source [id number] 09/26/2020 12:00:00 AM EDT [place] ([facility]) Name Value Range Interpretation Code Description Data Elvira rce(s) Supporting Document(s) ID Date Data Source [id number] 09/26/2020 12:00:00 AM EDT [place] ([facility]) Name Value Range Interpretation Code Description Data Elvira rce(s) Supporting Document(s) SARS-CoV-2 (COVID-19) RNA [Presence] in Respiratory specimen by LEONARDO with probe detection negative negative Sars-cov-2 [place] ([facility]) ID Date Data Source [id number] 09/26/2020 12:00:00 AM EDT [place] ([facility]) Name Value Range Interpretation Code Description Data Elvira rce(s) Supporting Document(s) ID Date Data Source [id number] 09/26/2020 12:00:00 AM EDT [facility]) Name Value Range Interpretation Code Description Data Elvira rce(s) Supporting Document(s) SARS-CoV-2 (COVID-19) RNA [Presence] in Respiratory specimen by LEONARDO with probe detection negative negative Sars-cov-2 [place] ([facility]) ID Date Data Source [id number] 09/26/2020 12:00:00 AM EDT [facility]) Name Value Range Interpretation Code Description Data Elvira rce(s) Supporting Document(s) ID Date Data Source [id number] 09/26/2020 12:00:00 AM EDT [facility]) Name Value Range Interpretation Code Description Data Elvira rce(s) Supporting Document(s) SARS-CoV-2 (COVID-19) RNA [Presence] in Respiratory specimen by LEONARDO with probe detection negative negative Sars-cov-2 [place] ([employer] [facility]) ID Date Data Source [id number] 09/26/2020 12:00:00 AM EDT [place] ([facility]) Name Value Range Interpretation Code Description Data Elvira rce(s) Supporting Document(s) ID Date Data Source [id number] 09/16/2020 02:57:05 PM EDT [facility] Name Value Range Interpretation Code Description Data Elvira rce(s) Supporting Document(s) Progress Note [facility] KLCANh9nJdOEGjXw76/IMShfSGSev4DyRGfoYLe1SLcdPPSvM1IwKGD6eA1vOGB8DMqQLoKkJlOgINL8 lbm UdXnhXXeYbEOWjMsjWUbVgEDniGorhvSHtUC3RmCS3HRCoF43uSPSjGKXgI0ZbEBFlYds+Uc0YMHObyN SdTD5QBjlA1X8vn1rQEh0xqH/QQhMRFQHH1WKlTzCzCY/fxU5i+451Eq8a95XpoT33kcn8286btFxymk C/gTvjaWfsLNR7grU9b/Jq4qtB5u+/yotVxsKW3w/5 3tfl0zYI/PlPZnGbZ+m1Hr1ix4xK7qogbJze++v8bo8s1KdonXVMRj7bv8wSScYNyjFkoCJpoCzynX77 nf88K4ZcAKz8PEua/eR5irHxCysQnzI+hx/M8Qfz/Et1xm8q87M+O5/3bX+VZdBfyyj5b+CuJmAbLahl lgljrs5VegN2xbM7yFkHvM0Ghl8VcGuyiHspj1wvWd p700IdznoODIC5bg0Oa2ptXAAerPV32Sw8hicbKe6Lo+loanbTq/Fg0r++SP3i5T4TJcPlLLgErwlwxF rOj6WVYuAErV9mZMOeQ/7qBNEC6yucRyu20qDvrRiov/xep4P+ImpRQOdhtK4H/3CrBFykY6VE+/1LpU 26DxU/lDHM6DasYOINrENfHnh2Y1xSXrXJu7XOpHUq E4qbh3CMCp9vwY9ZZ3QVEDDkmONLyS4L39j2jcm63wXirIVIQgBIODcZ7re/Ms+eHxw/JwCRefnBL56t F9Mzwgyr8nLS89XdOggPk5S35ZDN20ITWRjA6l0vF+XmXRRbXWuqCbir4v+CHCF/gJdluraFa90wV4Vt+ [file] zuFYquoMiaAnOHhB4iqZnXndiJZU6cLODZ7px93JYAuXwkGNLnh7GiReY+director validation+d8IT7WGKAbqRdul3KQ [file] WlX7MxA9VWqgAQSYZd2K ID Date Data Source [id number] 09/05/2020 12:00:00 AM EDT [facility] Name Value Range Interpretation Code Description Data Elvira rce(s) Supporting Document(s) SARS-CoV-2 (COVID-19) RNA [Presence] in Respiratory specimen by LEONARDO with probe detection negative negative [facility]cov-2 [facility] ID Date Data Source [id number] 09/05/2020 12:00:00 AM EDT [place] ([employer] [facility]) Name Value Range Interpretation Code Description Data Elvira rce(s) Supporting Document(s) ID Date Data Source [id number] 09/05/2020 12:00:00 AM EDT [place] ([facility]) Name Value Range Interpretation Code Description Data Elvira rce(s) Supporting Document(s) SARS-CoV-2 (COVID-19) RNA [Presence] in Respiratory specimen by LEONARDO with probe detection negative negative Sars-cov-2 [place] ([facility]) ID Date Data Source [id number] 09/05/2020 12:00:00 AM EDT [place] ([facility]) Name Value Range Interpretation Code Description Data Elvira rce(s) Supporting Document(s) ID Date Data Source [id number] 09/05/2020 12:00:00 AM EDT [place] ([facility]) Name Value Range Interpretation Code Description Data Elvira rce(s) Supporting Document(s) SARS-CoV-2 (COVID-19) RNA [Presence] in Respiratory specimen by LEONARDO with probe detection negative negative Sars-cov-2 [place] ([facility]) ID Date Data Source [id number] 09/05/2020 12:00:00 AM EDT [facility]) Name Value Range Interpretation Code Description Data Elvira rce(s) Supporting Document(s) ID Date Data Source [id number] 09/05/2020 12:00:00 AM EDT [place] ([facility]) Name Value Range Interpretation Code Description Data Elvira rce(s) Supporting Document(s) SARS-CoV-2 (COVID-19) RNA [Presence] in Respiratory specimen by LEONARDO with probe detection negative negative [facility] ID Date Data Source [id number] 09/05/2020 12:00:00 AM EDT [facility]) Name Value Range Interpretation Code Description Data Elvira rce(s) Supporting Document(s) ID Date Data Source [id number] 09/05/2020 12:00:00 AM EDT [place] ([facility]) Name Value Range Interpretation Code Description Data Elvira rce(s) Supporting Document(s) SARS-CoV-2 (COVID-19) RNA [Presence] in Respiratory specimen by LEONARDO with probe detection negative negative Sars-cov-2 [place] ([facility]) ID Date Data Source [id number] 09/05/2020 12:00:00 AM EDT [place] ([facility]) Name Value Range Interpretation Code Description Data Elvira rce(s) Supporting Document(s) ID Date Data Source [id number] 09/05/2020 12:00:00 AM EDT [place] ([facility]) Name Value Range Interpretation Code Description Data Elvira rce(s) Supporting Document(s) SARS-CoV-2 (COVID-19) RNA [Presence] in Respiratory specimen by LEONARDO with probe detection negative negative Sars-cov-2 [place] ([facility]) ID Date Data Source [id number] 09/05/2020 12:00:00 AM EDT [place] ([facility]) Name Value Range Interpretation Code Description Data Elvira rce(s) Supporting Document(s) ID Date Data Source [id number] 09/05/2020 12:00:00 AM EDT [place] ([facility]) Name Value Range Interpretation Code Description Data Elvira rce(s) Supporting Document(s) SARS-CoV-2 (COVID-19) RNA [Presence] in Respiratory specimen by LEONARDO with probe detection negative negative Sars-cov-2 [place] ([facility]) ID Date Data Source [id number] 09/05/2020 12:00:00 AM EDT [place] ([facility]) Name Value Range Interpretation Code Description Data Elvira rce(s) Supporting Document(s) ID Date Data Source [id number] 09/05/2020 12:00:00 AM EDT [place] ([facility]) Name Value Range Interpretation Code Description Data Elvira rce(s) Supporting Document(s) SARS-CoV-2 (COVID-19) RNA [Presence] in Respiratory specimen by LEONARDO with probe detection negative negative Sars-cov-2 [place] ([facility]) ID Date Data Source [id number] 09/05/2020 12:00:00 AM EDT [place] ([facility]) Name Value Range Interpretation Code Description Data Elvira rce(s) Supporting Document(s) ID Date Data Source [id number] 09/05/2020 12:00:00 AM EDT [facility] Name Value Range Interpretation Code Description Data Elvira rce(s) Supporting Document(s) SARS-CoV-2 NEGATIVE [facility] This lab was ordered by [facility] and reported by [employer]. ID Date Data Source [id number] 09/05/2020 12:00:00 AM EDT [place] ([facility]) Name Value Range Interpretation Code Description Data Elvira rce(s) Supporting Document(s) SARS-CoV-2 (COVID-19) RNA [Presence] in Respiratory specimen by LEONARDO with probe detection negative negative Sars-cov-2 [place] ([facility]) ID Date Data Source [id number] 09/05/2020 12:00:00 AM EDT [place] ([facility]) Name Value Range Interpretation Code Description Data Elvira rce(s) Supporting Document(s) ID Date Data Source [id number] 09/05/2020 12:00:00 AM EDT [place] ([facility]) Name Value Range Interpretation Code Description Data Elvira rce(s) Supporting Document(s) SARS-CoV-2 (COVID-19) RNA [Presence] in Respiratory specimen by LEONARDO with probe detection negative negative Sars-cov-2 [place] ([facility]) ID Date Data Source [id number] 09/05/2020 12:00:00 AM EDT [place] ([facility]) Name Value Range Interpretation Code Description Data Elvira rce(s) Supporting Document(s) ID Date Data Source [id number] 09/05/2020 12:00:00 AM EDT [place] ([facility]) Name Value Range Interpretation Code Description Data Elvira rce(s) Supporting Document(s) SARS-CoV-2 (COVID-19) RNA [Presence] in Respiratory specimen by LEONARDO with probe detection negative negative Sars-cov-2 [place] ([facility]) ID Date Data Source [id number] 09/05/2020 12:00[facility] Name Value Range Interpretation Code Description Data Elvira rce(s) Supporting Document(s) ID Date Data Source [id number] 09/05/2020 12:00:00 AM EDT [facility]) Name Value Range Interpretation Code Description Data Elvira rce(s) Supporting Document(s) SARS-CoV-2 (COVID-19) RNA [Presence] in Respiratory specimen by LEONARDO with probe detection negative negative Sars-cov-2 [place] ([facility]) ID Date Data Source [id number] 09/05/2020 12:00:00 AM EDT [facility]) Name Value Range Interpretation Code Description Data Elvira rce(s) Supporting Document(s) ID Date Data Source [id number] 09/05/2020 12:00:00 AM EDT [place] ([facility]) Name Value Range Interpretation Code Description Data Elvira rce(s) Supporting Document(s) SARS-CoV-2 (COVID-19) RNA [Presence] in Respiratory specimen by LEONARDO with probe detection negative negative Sars-cov-2 [facility] ([facility]) ID Date Data Source [id number] 09/05/2020 12:00:00 AM EDT [facility] ([facility]) Name Value Range Interpretation Code Description Data Elvira rce(s) Supporting Document(s) ID Date Data Source [id number] 08/08/2020 12:00:00 AM EDT [facility]) Name Value Range Interpretation Code Description Data Elvira rce(s) Supporting Document(s) SARS-CoV-2 (COVID-19) RNA [Presence] in Respiratory specimen by LEONARDO with probe detection negative negative Sars-cov-2 [facility] ([facility]) ID Date Data Source [id number] 08/08/2020 12:00:00 AM EDT [facility]) Name Value Range Interpretation Code Description Data Elvira rce(s) Supporting Document(s) ID Date Data Source [id number] 08/08/2020 12:00:00 AM EDT [facility] ([facility]) Name Value Range Interpretation Code Description Data Elvira rce(s) Supporting Document(s) SARS-CoV-2 (COVID-19) RNA [Presence] in Respiratory specimen by LEONARDO with probe detection negative negative Sars-cov-2 [facility] ([facility]) ID Date Data Source [id number] 08/08/2020 12:00:00 AM EDT [facility]) Name Value Range Interpretation Code Description Data Elvira rce(s) Supporting Document(s) ID Date Data Source [id number] 08/08/2020 12:00:00 AM EDT [facility] ([facility]) Name Value Range Interpretation Code Description Data Elvira rce(s) Supporting Document(s) SARS-CoV-2 (COVID-19) RNA [Presence] in Respiratory specimen by LEONARDO with probe detection negative negative Sars-cov-2 [facility] ([facility]) ID Date Data Source [id number] 08/08/2020 12:00:00 AM EDT [facility] ([facility]) Name Value Range Interpretation Code Description Data Elvira rce(s) Supporting Document(s) ID Date Data Source [id number] 08/08/2020 12:00:00 AM EDT [facility] ([facility]) Name Value Range Interpretation Code Description Data Elvira rce(s) Supporting Document(s) SARS-CoV-2 (COVID-19) RNA [Presence] in Respiratory specimen by LEONARDO with probe detection negative negative Sars-cov-2 [facility] ([facility]) ID Date Data Source [id number] 08/08/2020 12:00:00 AM EDT [facility] ([facility]) Name Value Range Interpretation Code Description Data Elvira rce(s) Supporting Document(s) ID Date Data Source [id number] 08/08/2020 12:00:00 AM EDT [facility] ([facility]) Name Value Range Interpretation Code Description Data Elvira rce(s) Supporting Document(s) SARS-CoV-2 (COVID-19) RNA [Presence] in Respiratory specimen by LEONARDO with probe detection negative negative Sars-cov-2 [facility] ([facility]) ID Date Data Source [id number] 08/08/2020 12:00:00 AM EDT [facility] ([facility]) Name Value Range Interpretation Code Description Data Elvira rce(s) Supporting Document(s) ID Date Data Source [id number] 08/08/2020 12:00:00 AM EDT [facility] ([facility]) Name Value Range Interpretation Code Description Data Elvira rce(s) Supporting Document(s) SARS-CoV-2 (COVID-19) RNA [Presence] in Respiratory specimen by LEONARDO with probe detection negative negative Sars-cov-2 [facility] ([facility]) ID Date Data Source [id number] 08/08/2020 12:00:00 AM EDT [facility] ([facility]) Name Value Range Interpretation Code Description Data Elvira rce(s) Supporting Document(s) ID Date Data Source [id number] 08/08/2020 12:00:00 AM EDT [facility] ([facility]) Name Value Range Interpretation Code Description Data Elvira rce(s) Supporting Document(s) SARS-CoV-2 (COVID-19) RNA [Presence] in Respiratory specimen by LEONARDO with probe detection negative negative Sars-cov-2 [facility] ([facility]) ID Date Data Source [id number] 08/08/2020 12:00:00 AM EDT [facility] ([facility]) Name Value Range Interpretation Code Description Data Elvira rce(s) Supporting Document(s) ID Date Data Source [id number] 08/08/2020 12:00:00 AM EDT [facility] ([facility]) Name Value Range Interpretation Code Description Data Elvira rce(s) Supporting Document(s) SARS-CoV-2 (COVID-19) RNA [Presence] in Respiratory specimen by LEONARDO with probe detection negative negative Sars-cov-2 [facility] ([facility]) ID Date Data Source [id number] 08/08/2020 12:00:00 AM EDT [facility] ([facility]) Name Value Range Interpretation Code Description Data Elvira rce(s) Supporting Document(s) ID Date Data Source [id number] 08/08/2020 12:00:00 AM EDT [facility] ([facility]) Name Value Range Interpretation Code Description Data Elvira rce(s) Supporting Document(s) SARS-CoV-2 (COVID-19) RNA [Presence] in Respiratory specimen by LEONARDO with probe detection negative negative Sars-cov-2 [facility] ([facility]) ID Date Data Source [id number] 08/08/2020 12:00:00 AM EDT [facility] ([facility]) Name Value Range Interpretation Code Description Data Elvira rce(s) Supporting Document(s) ID Date Data Source [id number] 08/08/2020 12:00:00 AM EDT [facility] ([facility]) Name Value Range Interpretation Code Description Data Elvira rce(s) Supporting Document(s) SARS-CoV-2 (COVID-19) RNA [Presence] in Respiratory specimen by LEONARDO with probe detection negative negative Sars-cov-2 [facility] ([facility]) ID Date Data Source [id number] 08/08/2020 12:00:00 AM EDT [facility] ([facility]) Name Value Range Interpretation Code Description Data Elvira rce(s) Supporting Document(s) ID Date Data Source [id number] 08/08/2020 12:00:00 AM EDT [facility] ([facility]) Name Value Range Interpretation Code Description Data Elvira rce(s) Supporting Document(s) SARS-CoV-2 (COVID-19) RNA [Presence] in Respiratory specimen by LEONARDO with probe detection negative negative Sars-cov-2 [facility] ([facility]) ID Date Data Source [id number] 08/08/2020 12:00:00 AM EDT [facility] ([facility]) Name Value Range Interpretation Code Description Data Elvira rce(s) Supporting Document(s) ID Date Data Source [id number] 08/08/2020 12:00:00 AM EDT [facility] Name Value Range Interpretation Code Description Data Elvira rce(s) Supporting Document(s) SARS-CoV-2 NEGATIVE [facility] This lab was ordered by [facility]-COVID19 and reported by [employer]. ID Date Data Source [id number] 08/08/2020 12:00:00 AM EDT [facility] ([facility]) Name Value Range Interpretation Code Description Data Elvira rce(s) Supporting Document(s) SARS-CoV-2 (COVID-19) RNA [Presence] in Respiratory specimen by LEONARDO with probe detection negative negative Sars-cov-2 [facility] ([facility]) ID Date Data Source [id number] 08/08/2020 12:00:00 AM EDT [facility] ([facility]) Name Value Range Interpretation Code Description Data Elvira rce(s) Supporting Document(s) ID Date Data Source [id number] 08/08/2020 12:00:00 AM EDT [facility] ([facility]) Name Value Range Interpretation Code Description Data Elvira rce(s) Supporting Document(s) SARS-CoV-2 (COVID-19) RNA [Presence] in Respiratory specimen by LEONARDO with probe detection negative negative Sars-cov-2 [facility] ([facility]) ID Date Data Source [id number] 08/08/2020 12:00:00 AM EDT [facility] ([facility]) Name Value Range Interpretation Code Description Data Elvira rce(s) Supporting Document(s) ID Date Data Source [id number] 08/08/2020 12:00:00 AM EDT [facility] ([facility]) Name Value Range Interpretation Code Description Data Elvira rce(s) Supporting Document(s) SARS-CoV-2 (COVID-19) RNA [Presence] in Respiratory specimen by LEONARDO with probe detection negative negative Sars-cov-2 [facility] ([facility]) ID Date Data Source [id number] 08/08/2020 12:00:00 AM EDT [facility] ([facility]) Name Value Range Interpretation Code Description Data Elvira rce(s) Supporting Document(s) ID Date Data Source [id number] 08/08/2020 12:00:00 AM EDT [facility] ([facility]) Name Value Range Interpretation Code Description Data Elvira rce(s) Supporting Document(s) SARS-CoV-2 (COVID-19) RNA [Presence] in Respiratory specimen by LEONARDO with probe detection negative negative Sars-cov-2 [facility] ([facility]) ID Date Data Source [id number] 08/08/2020 12:00:00 AM EDT [facility] ([facility]) Name Value Range Interpretation Code Description Data Elvira rce(s) Supporting Document(s) ID Date Data Source [id number] 08/08/2020 12:00:00 AM EDT [facility] ([facility]) Name Value Range Interpretation Code Description Data Elvira rce(s) Supporting Document(s) SARS-CoV-2 (COVID-19) RNA [Presence] in Respiratory specimen by LEONARDO with probe detection negative negative Sars-cov-2 [facility] ([facility]) ID Date Data Source [id number] 08/08/2020 12:00:00 AM EDT [facility] ([facility]) Name Value Range Interpretation Code Description Data Elvira rce(s) Supporting Document(s) ID Date Data Source [id number] 06/24/2020 12:00:00 AM EST [facility] ([facility]) Name Value Range Interpretation Code Description Data Elvira rce(s) Supporting Document(s) SARS-CoV-2 (COVID-19) RNA [Presence] in Respiratory specimen by LEONARDO with probe detection negative negative Sars-cov-2 [facility] ([facility]) ID Date Data Source [id number] 06/24/2020 12:00:00 AM EST [facility] ([facility]) Name Value Range Interpretation Code Description Data Elvira rce(s) Supporting Document(s) ID Date Data Source [id number] 06/24/2020 12:00:00 AM EST [facility] ([facility]) Name Value Range Interpretation Code Description Data Elvira rce(s) Supporting Document(s) SARS-CoV-2 (COVID-19) RNA [Presence] in Respiratory specimen by LEONARDO with probe detection negative negative [facility]ars-cov-2 [facility] ([facility]) ID Date Data Source [id number] 06/24/2020 12:00:00 AM EST [facility] ([facility]) Name Value Range Interpretation Code Description Data Elvira rce(s) Supporting Document(s) ID Date Data Source [id number] 06/24/2020 12:00:00 AM EST [facility] ([facility]) Name Value Range Interpretation Code Description Data Elvira rce(s) Supporting Document(s) SARS-CoV-2 (COVID-19) RNA [Presence] in Respiratory specimen by LEONARDO with probe detection negative negative Sars-cov-2 [facility] ([facility]) ID Date Data Source [id number] 06/24/2020 12:00:00 AM EST [facility] ([facility]) Name Value Range Interpretation Code Description Data Elvira rce(s) Supporting Document(s) ID Date Data Source [id number] 06/24/2020 12:00:00 AM EST [facility] ([facility]) Name Value Range Interpretation Code Description Data Elvira rce(s) Supporting Document(s) SARS-CoV-2 (COVID-19) RNA [Presence] in Respiratory specimen by LEONARDO with probe detection negative negative [facility]ars-cov-2 [facility] ([facility]) ID Date Data Source [id number] 06/24/2020 12:00:00 AM EST [facility] ([facility]) Name Value Range Interpretation Code Description Data Elvira rce(s) Supporting Document(s) ID Date Data Source [id number] 06/24/2020 12:00:00 AM EST [facility] ([facility]) Name Value Range Interpretation Code Description Data Elvira rce(s) Supporting Document(s) SARS-CoV-2 (COVID-19) RNA [Presence] in Respiratory specimen by LEONARDO with probe detection negative negative [facility]ars-cov-2 [facility] ([facility]) ID Date Data Source [id number] 06/24/2020 12:00:00 AM EST [facility] ([facility]) Name Value Range Interpretation Code Description Data Elvira rce(s) Supporting Document(s) ID Date Data Source [id number] 06/24/2020 12:00:00 AM EST [facility] ([facility]) Name Value Range Interpretation Code Description Data Elvira rce(s) Supporting Document(s) SARS-CoV-2 (COVID-19) RNA [Presence] in Respiratory specimen by LEONARDO with probe detection negative negative [facility]ars-cov-2 [facility] ([facility]) ID Date Data Source [id number] 06/24/2020 12:00:00 AM EST [facility] ([facility]) Name Value Range Interpretation Code Description Data Elvira rce(s) Supporting Document(s) ID Date Data Source [id number] 06/24/2020 12:00:00 AM EST [facility] ([facility]) Name Value Range Interpretation Code Description Data Elvira rce(s) Supporting Document(s) SARS-CoV-2 (COVID-19) RNA [Presence] in Respiratory specimen by LEONARDO with probe detection negative negative [facility]ars-cov-2 [facility] ([facility]) ID Date Data Source [id number] 06/24/2020 12:00:00 AM EST [facility] ([facility]) Name Value Range Interpretation Code Description Data Elvira rce(s) Supporting Document(s) ID Date Data Source [id number] 06/24/2020 12:00:00 AM EST [facility] ([facility]) Name Value Range Interpretation Code Description Data Elvira rce(s) Supporting Document(s) SARS-CoV-2 (COVID-19) RNA [Presence] in Respiratory specimen by LEONARDO with probe detection negative negative [facility]ars-cov-2 [facility] ([facility]) ID Date Data Source [id number] 06/24/2020 12:00:00 AM EST [facility] ([facility]) Name Value Range Interpretation Code Description Data Elvira rce(s) Supporting Document(s) ID Date Data Source [id number] 06/24/2020 12:00:00 AM EST [facility] ([facility]) Name Value Range Interpretation Code Description Data Elvira rce(s) Supporting Document(s) SARS-CoV-2 (COVID-19) RNA [Presence] in Respiratory specimen by LEONARDO with probe detection negative negative [facility]ars-cov-2 [facility] ([facility]) ID Date Data Source [id number] 06/24/2020 12:00:00 AM EST [facility] ([facility]) Name Value Range Interpretation Code Description Data Elvira rce(s) Supporting Document(s) ID Date Data Source [id number] 06/24/2020 12:00:00 AM EST [facility] ([facility]) Name Value Range Interpretation Code Description Data Elvira rce(s) Supporting Document(s) SARS-CoV-2 (COVID-19) RNA [Presence] in Respiratory specimen by LEONARDO with probe detection negative negative [facility]ars-cov-2 [facility] ([facility]) ID Date Data Source [id number] 06/24/2020 12:00:00 AM EST [facility] ([facility]) Name Value Range Interpretation Code Description Data Elvira rce(s) Supporting Document(s) ID Date Data Source [id number] 06/24/2020 12:00:00 AM EST [facility] ([facility]) Name Value Range Interpretation Code Description Data Elvira rce(s) Supporting Document(s) SARS-CoV-2 (COVID-19) RNA [Presence] in Respiratory specimen by LEONARDO with probe detection negative negative [facility]ars-cov-2 [facility] ([facility]) ID Date Data Source [id number] 06/24/2020 12:00:00 AM EST [facility] ([facility]) Name Value Range Interpretation Code Description Data Elvira rce(s) Supporting Document(s) ID Date Data Source [id number] 06/24/2020 12:00:00 AM EST [facility] ([facility]) Name Value Range Interpretation Code Description Data Elvira rce(s) Supporting Document(s) SARS-CoV-2 (COVID-19) RNA [Presence] in Respiratory specimen by LEONARDO with probe detection negative negative Sars-cov-2 [facility] ([facility]) ID Date Data Source [id number] 06/24/2020 12:00:00 AM EST [facility] ([facility]) Name Value Range Interpretation Code Description Data Elvira rce(s) Supporting Document(s) ID Date Data Source [id number] 06/24/2020 12:00:00 AM EST [facility] ([facility]) Name Value Range Interpretation Code Description Data Elvira rce(s) Supporting Document(s) SARS-CoV-2 (COVID-19) RNA [Presence] in Respiratory specimen by LEONARDO with probe detection negative negative [facility]ars-cov-2 [facility] ([facility]) ID Date Data Source [id number] 06/24/2020 12:00:00 AM EST [facility] ([facility]) Name Value Range Interpretation Code Description Data Elvira rce(s) Supporting Document(s) ID Date Data Source [id number] 06/24/2020 12:00:00 AM EST [facility] ([facility]) Name Value Range Interpretation Code Description Data Elvira rce(s) Supporting Document(s) SARS-CoV-2 (COVID-19) RNA [Presence] in Respiratory specimen by LEONARDO with probe detection negative negative [facility]ars-cov-2 [facility] ([facility]) ID Date Data Source [id number] 06/24/2020 12:00:00 AM EST [facility] ([facility]) Name Value Range Interpretation Code Description Data Elvira rce(s) Supporting Document(s) ID Date Data Source [id number] 06/24/2020 12:00:00 AM EST [facility] ([facility]) Name Value Range Interpretation Code Description Data Elvira rce(s) Supporting Document(s) SARS-CoV-2 (COVID-19) RNA [Presence] in Respiratory specimen by LEONARDO with probe detection negative negative [facility]ars-cov-2 [facility] ([facility]) ID Date Data Source [id number] 06/24/2020 12:00:00 AM EST [facility] ([facility]) Name Value Range Interpretation Code Description Data Elvira rce(s) Supporting Document(s) ID Date Data Source [id number] 06/24/2020 12:00:00 AM EST [facility] Name Value Range Interpretation Code Description Data Elvira rce(s) Supporting Document(s) [facility] by [facility] and reported by [employer]. ID Date Data Source [id number] 06/24/2020 12:00:00 AM EST [facility] ([facility]) Name Value Range Interpretation Code Description Data Elvira rce(s) Supporting Document(s) SARS-CoV-2 (COVID-19) RNA [Presence] in Respiratory specimen by LEONARDO with probe detection negative negative [facility]ars-cov-2 [facility] ([facility]) ID Date Data Source [id number] 06/24/2020 12:00:00 AM EST [facility] ([facility]) Name Value Range Interpretation Code Description Data Elvira rce(s) Supporting Document(s) ID Date Data Source [id number] 06/24/2020 12:00:00 AM EST [facility] ([facility]) Name Value Range Interpretation Code Description Data Elvira rce(s) Supporting Document(s) SARS-CoV-2 (COVID-19) RNA [Presence] in Respiratory specimen by LEONARDO with probe detection negative negative [facility]ars-cov-2 [facility]) ID Date Data Source [id number] 06/24/2020 12:00:00 AM EST [facility] ([facility]) Name Value Range Interpretation Code Description Data Elvira rce(s) Supporting Document(s) ID Date Data Source [id number] 06/24/2020 12:00:00 AM EST [facility] ([facility]) Name Value Range Interpretation Code Description Data Elvira rce(s) Supporting Document(s) SARS-CoV-2 (COVID-19) RNA [Presence] in Respiratory specimen by LEONARDO with probe detection negative negative [facility]ars-cov-2 [facility] ([facility]) ID Date Data Source [id number] 06/24/2020 12:00:00 AM EST [facility] ([facility]) Name Value Range Interpretation Code Description Data Elvira rce(s) Supporting Document(s) ID Date Data Source [id number] 06/24/2020 12:00:00 AM EST [facility] ([facility]) Name Value Range Interpretation Code Description Data Elvira rce(s) Supporting Document(s) SARS-CoV-2 (COVID-19) RNA [Presence] in Respiratory specimen by LEONARDO with probe detection negative negative Sars-cov-2 [facility] ([facility]) ID Date Data Source [id number] 06/24/2020 12:00:00 AM EST [facility] ([facility]) Name Value Range Interpretation Code Description Data Elvira rce(s) Supporting Document(s) ID Date Data Source [id number] 06/03/2020 12:00:00 AM EST [facility] ([facility]) Name Value Range Interpretation Code Description Data Elvira rce(s) Supporting Document(s) SARS-CoV-2 (COVID-19) RNA [Presence] in Respiratory specimen by LEONARDO with probe detection negative negative [facility]ars-cov-2 [facility]) ID Date Data Source [id number] 06/03/2020 12:00:00 AM EST [facility] ([facility]) Name Value Range Interpretation Code Description Data Elvira rce(s) Supporting Document(s) ID Date Data Source [id number] 06/03/2020 12:00:00 AM EST [facility] ([facility]) Name Value Range Interpretation Code Description Data Elvira rce(s) Supporting Document(s) SARS-CoV-2 (COVID-19) RNA [Presence] in Respiratory specimen by LEONARDO with probe detection negative negative Sars-cov-2 [facility] ([facility]) ID Date Data Source [id number] 06/03/2020 12:00:00 AM EST [facility] ([facility]) Name Value Range Interpretation Code Description Data Elvira rce(s) Supporting Document(s) ID Date Data Source [id number] 06/03/2020 12:00:00 AM EST [facility] ([facility]) Name Value Range Interpretation Code Description Data Elvira rce(s) Supporting Document(s) SARS-CoV-2 (COVID-19) RNA [Presence] in Respiratory specimen by LEONARDO with probe detection negative negative [facility]ars-cov-2 [facility] ([facility]) ID Date Data Source [id number] 06/03/2020 12:00:00 AM EST [facility] ([facility]) Name Value Range Interpretation Code Description Data Elvira rce(s) Supporting Document(s) ID Date Data Source [id number] 06/03/2020 12:00:00 AM EST [facility] ([facility]) Name Value Range Interpretation Code Description Data Elvira rce(s) Supporting Document(s) SARS-CoV-2 (COVID-19) RNA [Presence] in Respiratory specimen by LEONARDO with probe detection negative negative Sars-cov-2 [facility] ([facility]) ID Date Data Source [id number] 06/03/2020 12:00:00 AM EST [facility] ([facility]) Name Value Range Interpretation Code Description Data Elvira rce(s) Supporting Document(s) ID Date Data Source [id number] 06/03/2020 12:00:00 AM EST [facility] ([facility]) Name Value Range Interpretation Code Description Data Elvira rce(s) Supporting Document(s) SARS-CoV-2 (COVID-19) RNA [Presence] in Respiratory specimen by LEONARDO with probe detection negative negative Sars-cov-2 [facility] ([facility]) ID Date Data Source [id number] 06/03/2020 12:00:00 AM EST [facility] ([facility]) Name Value Range Interpretation Code Description Data Elvira rce(s) Supporting Document(s) ID Date Data Source [id number] 06/03/2020 12:00:00 AM EST [facility] ([facility]) Name Value Range Interpretation Code Description Data Elvira rce(s) Supporting Document(s) SARS-CoV-2 (COVID-19) RNA [Presence] in Respiratory specimen by LEONARDO with probe detection negative negative Sars-cov-2 [facility] ([facility]) ID Date Data Source [id number] 06/03/2020 12:00:00 AM EST [facility] ([facility]) Name Value Range Interpretation Code Description Data Elvira rce(s) Supporting Document(s) ID Date Data Source [id number] 06/03/2020 12:00:00 AM EST [facility] ([facility]) Name Value Range Interpretation Code Description Data Elvira rce(s) Supporting Document(s) SARS-CoV-2 (COVID-19) RNA [Presence] in Respiratory specimen by LEONARDO with probe detection negative negative Sars-cov-2 [facility] ([facility]) ID Date Data Source [id number] 06/03/2020 12:00:00 AM EST [facility] ([facility]) Name Value Range Interpretation Code Description Data Elvira rce(s) Supporting Document(s) ID Date Data Source [id number] 06/03/2020 12:00:00 AM EST [facility] ([facility]) Name Value Range Interpretation Code Description Data Elvira rce(s) Supporting Document(s) SARS-CoV-2 (COVID-19) RNA [Presence] in Respiratory specimen by LEONARDO with probe detection negative negative Sars-cov-2 [facility] ([facility]) ID Date Data Source [id number] 06/03/2020 12:00:00 AM EST [facility] ([facility]) Name Value Range Interpretation Code Description Data Elvira rce(s) Supporting Document(s) ID Date Data Source [id number] 06/03/2020 12:00:00 AM EST [facility] ([facility]) Name Value Range Interpretation Code Description Data Elvira rce(s) Supporting Document(s) SARS-CoV-2 (COVID-19) RNA [Presence] in Respiratory specimen by LEONARDO with probe detection negative negative Sars-cov-2 [facility] ([facility]) ID Date Data Source [id number] 06/03/2020 12:00:00 AM EST [facility] ([facility]) Name Value Range Interpretation Code Description Data Elvira rce(s) Supporting Document(s) ID Date Data Source [id number] 06/03/2020 12:00:00 AM EST [facility] ([facility]) Name Value Range Interpretation Code Description Data Elvira rce(s) Supporting Document(s) SARS-CoV-2 (COVID-19) RNA [Presence] in Respiratory specimen by LEONARDO with probe detection negative negative Sars-cov-2 [facility] ([facility]) ID Date Data Source [id number] 06/03/2020 12:00:00 AM EST [facility] ([facility]) Name Value Range Interpretation Code Description Data Elvira rce(s) Supporting Document(s) ID Date Data Source [id number] 06/03/2020 12:00:00 AM EST [facility] ([facility]) Name Value Range Interpretation Code Description Data Elvira rce(s) Supporting Document(s) SARS-CoV-2 (COVID-19) RNA [Presence] in Respiratory specimen by LEONARDO with probe detection negative negative Sars-cov-2 [facility] ([facility]) ID Date Data Source [id number] 06/03/2020 12:00:00 AM EST [facility] ([facility]) Name Value Range Interpretation Code Description Data Elvira rce(s) Supporting Document(s) ID Date Data Source [id number] 06/03/2020 12:00:00 AM EST [facility] ([facility]) Name Value Range Interpretation Code Description Data Levira rce(s) Supporting Document(s) SARS-CoV-2 (COVID-19) RNA [Presence] in Respiratory specimen by LEONARDO with probe detection negative negative Sars-cov-2 [facility] ([facility]) ID Date Data Source [id number] 06/03/2020 12:00:00 AM EST [facility] ([facility]) Name Value Range Interpretation Code Description Data Elvira rce(s) Supporting Document(s) ID Date Data Source [id number] 06/03/2020 12:00:00 AM EST [facility] ([facility]) Name Value Range Interpretation Code Description Data Elvira rce(s) Supporting Document(s) SARS-CoV-2 (COVID-19) RNA [Presence] in Respiratory specimen by LEONARDO with probe detection negative negative Sars-cov-2 [facility] ([facility]) ID Date Data Source [id number] 06/03/2020 12:00:00 AM EST [facility] ([facility]) Name Value Range Interpretation Code Description Data Elvira rce(s) Supporting Document(s) ID Date Data Source [id number] 06/03/2020 12:00:00 AM EST [facility] ([facility]) Name Value Range Interpretation Code Description Data Elvira rce(s) Supporting Document(s) SARS-CoV-2 (COVID-19) RNA [Presence] in Respiratory specimen by LEONARDO with probe detection negative negative Sars-cov-2 [facility] ([facility]) ID Date Data Source [id number] 06/03/2020 12:00:00 AM EST [facility] ([facility]) Name Value Range Interpretation Code Description Data Elvira rce(s) Supporting Document(s) ID Date Data Source [id number] 06/03/2020 12:00:00 AM EST [facility] ([facility]) Name Value Range Interpretation Code Description Data Elvira rce(s) Supporting Document(s) SARS-CoV-2 (COVID-19) RNA [Presence] in Respiratory specimen by LEONARDO with probe detection negative negative Sars-cov-2 [facility] ([facility]) ID Date Data Source [id number] 06/03/2020 12:00:00 AM EST [facility] ([facility]) Name Value Range Interpretation Code Description Data Elvira rce(s) Supporting Document(s) ID Date Data Source [id number] 06/03/2020 12:00:00 AM EST [facility] ([facility]) Name Value Range Interpretation Code Description Data Elvira rce(s) Supporting Document(s) SARS-CoV-2 (COVID-19) RNA [Presence] in Respiratory specimen by LEONARDO with probe detection negative negative Sars-cov-2 [facility] ([facility]) ID Date Data Source [id number] 06/03/2020 12:00:00 AM EST [facility] ([facility]) Name Value Range Interpretation Code Description Data Elvira rce(s) Supporting Document(s) ID Date Data Source [id number] 06/03/2020 12:00:00 AM EST [place] ([facility]) Name Value Range Interpretation Code Description Data Elvira rce(s) Supporting Document(s) SARS-CoV-2 (COVID-19) RNA [Presence] in Respiratory specimen by LEONARDO with probe detection negative negative Sars-cov-2 [facility] ([facility]) ID Date Data Source [id number] 06/03/2020 12:00:00 AM EST [facility] ([facility]) Name Value Range Interpretation Code Description Data Elvira rce(s) Supporting Document(s) ID Date Data Source [id number] 06/03/2020 12:00:00 AM EST [facility] ([facility]) Name Value Range Interpretation Code Description Data Elvira rce(s) Supporting Document(s) SARS-CoV-2 (COVID-19) RNA [Presence] in Respiratory specimen by LEONARDO with probe detection negative negative Sars-cov-2 [facility] ([facility]) ID Date Data Source [id number] 06/03/2020 12:00:00 AM EST [facility] ([facility]) Name Value Range Interpretation Code Description Data Elvira rce(s) Supporting Document(s) ID Date Data Source [id number] 06/03/2020 12:00:00 AM EST [facility] Name Value Range Interpretation Code Description Data Elvira rce(s) Supporting Document(s) SARS-CoV-2 NEGATIVE [facility] This lab was ordered by [facility] and reported by [employer]. ID Date Data Source [id number] 06/03/2020 12:00:00 AM EST [place] ([facility]) Name Value Range Interpretation Code Description Data Elvira rce(s) Supporting Document(s) SARS-CoV-2 (COVID-19) RNA [Presence] in Respiratory specimen by LEONARDO with probe detection negative negative Sars-cov-2 [facility] ([facility]) ID Date Data Source [id number] 06/03/2020 12:00:00 AM EST [facility] ([facility]) Name Value Range Interpretation Code Description Data Elvira rce(s) Supporting Document(s) ID Date Data Source [id number] 06/03/2020 12:00:00 AM EST [facility] ([facility]) Name Value Range Interpretation Code Description Data Elvira rce(s) Supporting Document(s) SARS-CoV-2 (COVID-19) RNA [Presence] in Respiratory specimen by LEONARDO with probe detection negative negative Sars-cov-2 [facility] ([facility]) ID Date Data Source [id number] 06/03/2020 12:00:00 AM EST [facility] ([facility]) Name Value Range Interpretation Code Description Data Elvira rce(s) Supporting Document(s) ID Date Data Source [id number] 06/03/2020 12:00:00 AM EST [facility] ([facility]) Name Value Range Interpretation Code Description Data Elvira rce(s) Supporting Document(s) SARS-CoV-2 (COVID-19) RNA [Presence] in Respiratory specimen by LEONARDO with probe detection negative negative Sars-cov-2 [facility] ([facility]) ID Date Data Source [id number] 06/03/2020 12:00:00 AM EST [facility] ([facility]) Name Value Range Interpretation Code Description Data Elvira rce(s) Supporting Document(s) ID Date Data Source [id number] 06/03/2020 12:00:00 AM EST [facility] ([facility]) Name Value Range Interpretation Code Description Data Elvira rce(s) Supporting Document(s) SARS-CoV-2 (COVID-19) RNA [Presence] in Respiratory specimen by LEONARDO with probe detection negative negative Sars-cov-2 [facility] ([facility]) ID Date Data Source [id number] 06/03/2020 12:00:00 AM EST [facility] ([facility]) Name Value Range Interpretation Code Description Data Elvira rce(s) Supporting Document(s) ID Date Data Source [id number] CULTURE 05/20/2020 12:00:00 AM EST [facility] ([facility]) Name Value Range Interpretation Code Description Data Elvira rce(s) Supporting Document(s) eCW1 ([facility]) ID Date Data Source [id number] 05/20/2020 12:00:00 AM EST [facility] ([facility]) Name Value Range Interpretation Code Description Data Elvira rce(s) Supporting Document(s) eC ([facility]) ID Date Data Source [id number] 02/24/2020 02:40:58 [facility] Name Value Range Interpretation Code Description Data Elvira rce(s) Supporting Document(s) Progress Note [facility] [id number] [facility] [file] [id number] Procedure Social History Code Duration Value Status Description Data Source(s ) Smoking 02/22/2021 12:00:00 AM EDT Current Smoker completed Curre nt Smoker eCW1 ([facility]) Smoking 11/30/2020 12:00:00 AM EDT Current Smoker completed Curre nt Smoker eCW1 ([facility]) Smoking 11/30/2020 12:00:00 AM EDT Current Smoker completed Curre nt Smoker eCW1 ([facility]) Smoking 11/30/2020 12:00:00 AM EDT Current Smoker completed Curre nt Smoker eCW1 ([facility]) Smoking 11/30/2020 12:00:00 AM EDT Current Smoker completed Curre nt Smoker eCW1 ([facility]) Smoking 06/17/2020 12:00:00 AM EST Current Smoker completed Curre nt Smoker eCW1 ([facility]) Smoking 06/17/2020 12:00:00 AM EST Current Smoker completed Curre nt Smoker eCW1 ([facility]) Smoking 06/17/2020 12:00:00 AM EST Current Smoker completed Curre nt Smoker eCW1 ([facility]) Smoking 06/17/2020 12:00:00 AM EST Current Smoker completed Curre nt Smoker eCW1 ([facility]) Smoking 06/17/2020 12:00:00 AM EST Current Smoker completed Curre nt Smoker eCW1 ([facility]) Smoking 06/17/2020 12:00:00 AM EST Current Smoker completed Curre nt Smoker eCW1 ([facility]) Smoking 06/17/2020 12:00:00 AM EST Current Smoker completed Curre nt Smoker eCW1 ([facility]) Smoking 06/17/2020 12:00:00 AM EST Current Smoker completed Curre nt Smoker eCW1 ([facility]) Smoking 06/17/2020 12:00:00 AM EST Current Smoker completed Curre nt Smoker eCW1 ([facility]) Smoking 06/17/2020 12:00:00 AM EST Current Smoker completed Curre nt Smoker eCW1 ([facility]) Smoking 06/17/2020 12:00:00 AM EST Current Smoker completed Curre nt Smoker eCW1 ([facility]) Smoking 06/17/2020 12:00:00 AM EST Current Smoker completed Curre nt Smoker eCW1 ([facility]) Smoking 06/17/2020 12:00:00 AM EST Current Smoker completed Curre nt Smoker eCW1 ([facility]) Smoking 05/20/2020 12:00:00 AM EST Current Smoker completed Curre nt Smoker eCW1 ([facility]) Smoking 03/28/2020 12:00:00 AM EST Current Smoker completed Curre nt Smoker eCW1 ([facility]) Smoking 03/28/2020 12:00:00 AM EST Current Smoker completed Curre nt Smoker eCW1 ([facility]) Smoking 03/28/2020 12:00:00 AM EST Current Smoker completed Curre nt Smoker eCW1 ([facility]) Smoking 03/28/2020 12:00:00 AM EST Current Smoker completed Devine nt Smoker eCW1 ([facility]) Vital Signs ID Date Data Source [id number] Name Value Range Interpretation Code Description Data Source(s) Body mass index (BMI) [Ratio] 18.58 kg/m2 18.58 kg/m2 eCW1 ([facility]) Heart rate 82 /min 82 /min eCW1 ([facility]) Respiratory rate 18 /min 18 /min eCW1 ([facility]) Body temperature 97.5 [degF] 97.5 [degF] eCW1 ( [facility]) Systolic blood pressure 118 mm[Hg] 118 mm[Hg] e CW1 ([facility]) Diastolic blood pressure 64 mm[Hg] 64 mm[Hg] eCW1 ([facility]) Body weight 122.2 [lb_av] 122.2 [lb_av] eCW1 ([facility]) Body weight 55.43 kg 55.43 kg eCW1 ([facility]) Body height 68 [in_i] 68 [in_i] eCW1 ([facility]) Diastolic blood pressure 63 mm[Hg] 63 mm[Hg] [facility] ([facility]) Body height 68 [in_i] 68 [in_i] [facility] ([facility]) Systolic blood pressure 99 mm[Hg] 99 mm[Hg] [facility] ([facility]) Diastolic blood pressure 63 mm[Hg] 63 mm[Hg] [facility] ([facility]) Body height 68 [in_i] 68 [in_i] [facility] ([facility]) Systolic blood pressure 99 mm[Hg] 99 mm[Hg] [facility] ([facility]) Diastolic blood pressure 63 mm[Hg] 63 mm[Hg] [facility] ([facility]) Body height 68 [in_i] 68 [in_i] [facility] ([facility]) Systolic blood pressure 99 mm[Hg] 99 mm[Hg] [facility] ([facility]) Diastolic blood pressure 64 mm[Hg] 64 mm[Hg] [facility] ([facility]) Body height 68 [in_i] 68 [in_i] [facility] ([facility]) Systolic blood pressure 118 mm[Hg] 118 mm[Hg] [facility] ([facility]) Diastolic blood pressure 64 mm[Hg] 64 mm[Hg] [facility] ([facility]) Body height 68 [in_i] 68 [in_i] [facility] ([facility]) Systolic blood pressure 118 mm[Hg] 118 mm[Hg] [facility] ([facility]) Diastolic blood pressure 64 mm[Hg] 64 mm[Hg] [facility] ([facility]) Body height 68 [in_i] 68 [in_i] [facility] ([facility]) Diastolic blood pressure 64 mm[Hg] 64 mm[Hg] [facility] ([facility]) Body height 68 [in_i] 68 [in_i] [facility] ([facility]) Systolic blood pressure 118 mm[Hg] 118 mm[Hg] [facility] ([facility]) Systolic blood pressure 118 mm[Hg] 118 mm[Hg] [facility] ([facility]) Diastolic blood pressure 64 mm[Hg] 64 mm[Hg] [facility] ([facility]) Body height 68 [in_i] 68 [in_i] [facility] ([facility]) Systolic blood pressure 118 mm[Hg] 118 mm[Hg] [facility] ([facility]) Diastolic blood pressure 64 mm[Hg] 64 mm[Hg] [facility] ([facility]) Body height 68 [in_i] 68 [in_i] [facility] ([facility]) Systolic blood pressure 118 mm[Hg] 118 mm[Hg] [facility] ([facility]) Diastolic blood pressure 65 mm[Hg] 65 mm[Hg] [facility] ([facility]) Body height 68 [in_i] 68 [in_i] [facility] ([facility]) Systolic blood pressure 103 mm[Hg] 103 mm[Hg] [facility] ([facility]) Diastolic blood pressure 65 mm[Hg] 65 mm[Hg] [facility] ([facility]) Body height 68 [in_i] 68 [in_i] [facility] ([facility]) Systolic blood pressure 103 mm[Hg] 103 mm[Hg] [facility] ([facility]) Diastolic blood pressure 65 mm[Hg] 65 mm[Hg] [facility] ([facility]) Body height 68 [in_i] 68 [in_i] [facility] ([facility]) Systolic blood pressure 103 mm[Hg] 103 mm[Hg] [facility] ([facility]) Diastolic blood pressure 65 mm[Hg] 65 mm[Hg] [facility] ([facility]) Body height 68 [in_i] 68 [in_i] [facility] ([facility]) Systolic blood pressure 103 mm[Hg] 103 mm[Hg] [facility] ([facility]) Diastolic blood pressure 65 mm[Hg] 65 mm[Hg] [facility] ([facility]) Body height 68 [in_i] 68 [in_i] [facility] ([facility]) Systolic blood pressure 103 mm[Hg] 103 mm[Hg] [facility] ([facility]) Diastolic blood pressure 65 mm[Hg] 65 mm[Hg] [facility] ([facility]) Body height 68 [in_i] 68 [in_i] [facility] ([facility]) Systolic blood pressure 103 mm[Hg] 103 mm[Hg] [facility] ([facility]) Diastolic blood pressure 65 mm[Hg] 65 mm[Hg] [facility] ([facility]) Body height 68 [in_i] 68 [in_i] [facility] ([facility]) Systolic blood pressure 103 mm[Hg] 103 mm[Hg] [facility] ([facility]) Body weight 120.6 [lb_av] 120.6 [lb_av] eCW1 ([facility]) Body height 68 [in_i] 68 [in_i] eCW1 ([facility]) Body mass index (BMI) [Ratio] 18.34 kg/m2 18.34 kg/m2 eCW1 ([facility]) Heart rate 86 /min 86 /min eCW1 ([facility]) Respiratory rate 18 /min 18 /min eCW1 ([facility]) Diastolic blood pressure 82 mm[Hg] 82 mm[Hg] eCW1 ([facility]) Body temperature 98.3 [degF] 98.3 [degF] eCW1 ( [facility]) Systolic blood pressure 128 mm[Hg] 128 mm[Hg] e CW1 ([facility]) Diastolic blood pressure 58 mm[Hg] 58 mm[Hg] [facility] ([facility]) Body height 68 [in_i] 68 [in_i] [facility] ([facility]) Systolic blood pressure 102 mm[Hg] 102 mm[Hg] [facility] ([facility]) Diastolic blood pressure 58 mm[Hg] 58 mm[Hg] [facility] ([facility]) Body height 68 [in_i] 68 [in_i] [facility] ([facility]) Systolic blood pressure 102 mm[Hg] 102 mm[Hg] [facility] ([facility]) Diastolic blood pressure 58 mm[Hg] 58 mm[Hg] [facility] ([facility]) Body height 68 [in_i] 68 [in_i] [facility] ([facility]) Systolic blood pressure 102 mm[Hg] 102 mm[Hg] [facility] ([facility]) Diastolic blood pressure 58 mm[Hg] 58 mm[Hg] [facility] ([facility]) Body height 68 [in_i] 68 [in_i] [facility] ([facility]) Systolic blood pressure 102 mm[Hg] 102 mm[Hg] [facility] ([facility]) Diastolic blood pressure 58 mm[Hg] 58 mm[Hg] [facility] ([facility]) Body height 68 [in_i] 68 [in_i] [facility] ([facility]) Systolic blood pressure 102 mm[Hg] 102 mm[Hg] [facility] ([facility]) Diastolic blood pressure 58 mm[Hg] 58 mm[Hg] [facility] ([facility]) Body height 68 [in_i] 68 [in_i] [facility] ([facility]) Systolic blood pressure 102 mm[Hg] 102 mm[Hg] [facility] ([facility]) Diastolic blood pressure 58 mm[Hg] 58 mm[Hg] [facility] ([facility]) Body height 68 [in_i] 68 [in_i] [facility] ([facility]) Systolic blood pressure 102 mm[Hg] 102 mm[Hg] [facility] ([facility]) Body height 68 [in_i] 68 [in_i] [facility] ([facility]) Systolic blood pressure 102 mm[Hg] 102 mm[Hg] A [facility] ([facility]) Diastolic blood pressure 68 mm[Hg] 68 mm[Hg] SANTHOSH ([facility]) Diastolic blood pressure 68 mm[Hg] 68 mm[Hg] [facility] ([facility]) Body height 68 [in_i] 68 [in_i] [facility] ([facility]) Systolic blood pressure 102 mm[Hg] 102 mm[Hg] A THENA ([facility]) Diastolic blood pressure 68 mm[Hg] 68 mm[Hg] SANTH[facility]H ([facility]) Body height 68 [in_i] 68 [in_i] SANTHOSH ([facility]) Systolic blood pressure 102 mm[Hg] 102 mm[Hg] A THENA ([facility]) Diastolic blood pressure 68 mm[Hg] 68 mm[Hg] SANTH[facility]H ([facility]) Body height 68 [in_i] 68 [in_i] SANTH[facility]H ([facility]) Systolic blood pressure 102 mm[Hg] 102 mm[Hg] A THENA ([facility]) Diastolic blood pressure 68 mm[Hg] 68 mm[Hg] SANTHOSH ([facility]) Body height 68 [in_i] 68 [in_i] SANTHOSH ([facility]) Systolic blood pressure 102 mm[Hg] 102 mm[Hg] A THENA ([facility]) Diastolic blood pressure 68 mm[Hg] 68 mm[Hg] SANTH[facility]H ([facility]) Body height 68 [in_i] 68 [in_i] [facility]TH[facility]H ([facility]) Systolic blood pressure 102 mm[Hg] 102 mm[Hg] A THENA ([facility]) Systolic blood pressure 102 mm[Hg] 102 mm[Hg] A THENA ([facility]) Body height 68 [in_i] 68 [in_i] SANTHOSH ([facility]) Diastolic blood pressure 68 mm[Hg] 68 mm[Hg] SANTH[facility]H ([facility]) Diastolic blood pressure 68 mm[Hg] 68 mm[Hg] [facility]TH[facility]H ([facility]) Body height 68 [in_i] 68 [in_i] [facility]TH[facility] ([facility]) Systolic blood pressure 102 mm[Hg] 102 mm[Hg] A THENA ([facility]) Diastolic blood pressure 68 mm[Hg] 68 mm[Hg] SANTHOSH ([facility]) Body height 68 [in_i] 68 [in_i] SANTH[facility]H ([facility]) Systolic blood pressure 102 mm[Hg] 102 mm[Hg] A THENA ([facility]) Diastolic blood pressure 68 mm[Hg] 68 mm[Hg] [facility]TH[facility]H ([facility]) Body height 68 [in_i] 68 [in_i] [facility] ([facility]) Systolic blood pressure 102 mm[Hg] 102 mm[Hg] A THENA ([facility]) Diastolic blood pressure 68 mm[Hg] 68 mm[Hg] SANTH[facility]H ([facility]) Body height 68 [in_i] 68 [in_i] [facility]TH[facility] ([facility]) Systolic blood pressure 102 mm[Hg] 102 mm[Hg] A THENA ([facility]) Diastolic blood pressure 68 mm[Hg] 68 mm[Hg] [facility]TH[facility]H ([facility]) Body height 68 [in_i] 68 [in_i] [facility] ([facility]) Systolic blood pressure 102 mm[Hg] 102 mm[Hg] A THENA ([facility]) Body height 68 [in_i] 68 [in_i] SANTH[facility]H ([facility]) Systolic blood pressure 108 mm[Hg] 108 mm[Hg] A THENA ([facility]) Diastolic blood pressure 65 mm[Hg] 65 mm[Hg] [facility]TH[facility] ([facility]) Diastolic blood pressure 65 mm[Hg] 65 mm[Hg] [facility] ([facility]) Body height 68 [in_i] 68 [in_i] [facility] ([facility]) Systolic blood pressure 108 mm[Hg] 108 mm[Hg] A THENA ([facility]) Body height 68 [in_i] 68 [in_i] [facility]TH[facility]H ([facility]) Diastolic blood pressure 65 mm[Hg] 65 mm[Hg] [facility] ([facility]) Systolic blood pressure 108 mm[Hg] 108 mm[Hg] A THENA ([facility]) Diastolic blood pressure 65 mm[Hg] 65 mm[Hg] [facility]TH[facility]H ([facility]) Body height 68 [in_i] 68 [in_i] [facility] ([facility]) Systolic blood pressure 108 mm[Hg] 108 mm[Hg] A THENA ([facility]) Diastolic blood pressure 65 mm[Hg] 65 mm[Hg] SANTH[facility]H ([facility]) Body height 68 [in_i] 68 [in_i] [facility] ([facility]) Systolic blood pressure 108 mm[Hg] 108 mm[Hg] A THENA ([facility]) Diastolic blood pressure 65 mm[Hg] 65 mm[Hg] [facility]TH[facility] ([facility]) Body height 68 [in_i] 68 [in_i] [facility] ([facility]) Systolic blood pressure 108 mm[Hg] 108 mm[Hg] A THENA ([facility]) Diastolic blood pressure 65 mm[Hg] 65 mm[Hg] [facility] ([facility]) Body height 68 [in_i] 68 [in_i] [facility] ([facility]) Systolic blood pressure 108 mm[Hg] 108 mm[Hg] A THENA ([facility]) Diastolic blood pressure 65 mm[Hg] 65 mm[Hg] [facility] ([facility]) Body height 68 [in_i] 68 [in_i] [facility] ([facility]) Systolic blood pressure 108 mm[Hg] 108 mm[Hg] A THENA ([facility]) Diastolic blood pressure 65 mm[Hg] 65 mm[Hg] [facility] ([facility]) Body height 68 [in_i] 68 [in_i] [facility] ([facility]) Systolic blood pressure 108 mm[Hg] 108 mm[Hg] A THENA ([facility]) Diastolic blood pressure 65 mm[Hg] 65 mm[Hg] [facility]TH[facility] ([facility]) Systolic blood pressure 108 mm[Hg] 108 mm[Hg] A THENA ([facility]) Body height 68 [in_i] 68 [in_i] [facility] ([facility]) Diastolic blood pressure 65 mm[Hg] 65 mm[Hg] [facility] ([facility]) Body height 68 [in_i] 68 [in_i] [facility] ([facility]) Systolic blood pressure 108 mm[Hg] 108 mm[Hg] A THENA ([facility]) Diastolic blood pressure 65 mm[Hg] 65 mm[Hg] [facility]TH[facility] ([facility]) Body height 68 [in_i] 68 [in_i] [facility] ([facility]) Systolic blood pressure 108 mm[Hg] 108 mm[Hg] A THENA ([facility]) Diastolic blood pressure 65 mm[Hg] 65 mm[Hg] [facility] ([facility]) Body height 68 [in_i] 68 [in_i] [facility] ([facility]) Systolic blood pressure 108 mm[Hg] 108 mm[Hg] A THENA ([facility]) Diastolic blood pressure 65 mm[Hg] 65 mm[Hg] [facility]TH[facility] ([facility]) Body height 68 [in_i] 68 [in_i] [facility] ([facility]) Systolic blood pressure 108 mm[Hg] 108 mm[Hg] A THENA ([facility]) Diastolic blood pressure 65 mm[Hg] 65 mm[Hg] [facility] ([facility]) Body height 68 [in_i] 68 [in_i] [facility] ([facility]) Systolic blood pressure 108 mm[Hg] 108 mm[Hg] A THENA ([facility]) Diastolic blood pressure 82 mm[Hg] 82 mm[Hg] [facility] ([facility]) Body height 68 [in_i] 68 [in_i] [facility] ([facility]) Systolic blood pressure 126 mm[Hg] 126 mm[Hg] A THENA ([facility]) Diastolic blood pressure 82 mm[Hg] 82 mm[Hg] [facility] ([facility]) Body height 68 [in_i] 68 [in_i] [facility] ([facility]) Systolic blood pressure 126 mm[Hg] 126 mm[Hg] A THENA ([facility]) Diastolic blood pressure 82 mm[Hg] 82 mm[Hg] [facility]TH[facility] ([facility]) Body height 68 [in_i] 68 [in_i] [facility] ([facility]) Systolic blood pressure 126 mm[Hg] 126 mm[Hg] A THENA ([facility]) Diastolic blood pressure 82 mm[Hg] 82 mm[Hg] [facility] ([facility]) Body height 68 [in_i] 68 [in_i] [facility] ([facility]) Systolic blood pressure 126 mm[Hg] 126 mm[Hg] A THENA ([facility]) Diastolic blood pressure 82 mm[Hg] 82 mm[Hg] [facility]TH[facility] ([facility]) Body height 68 [in_i] 68 [in_i] [facility] ([facility]) Systolic blood pressure 126 mm[Hg] 126 mm[Hg] A THENA ([facility]) Diastolic blood pressure 82 mm[Hg] 82 mm[Hg] [facility] ([facility]) Body height 68 [in_i] 68 [in_i] [facility] ([facility]) Systolic blood pressure 126 mm[Hg] 126 mm[Hg] A THENA ([facility]) Diastolic blood pressure 82 mm[Hg] 82 mm[Hg] [facility]TH[facility] ([facility]) Body height 68 [in_i] 68 [in_i] [facility]TH[facility] ([facility]) Systolic blood pressure 126 mm[Hg] 126 mm[Hg] A THENA ([facility]) Diastolic blood pressure 82 mm[Hg] 82 mm[Hg] [facility]TH[facility]H ([facility]) Body height 68 [in_i] 68 [in_i] [facility]TH[facility] ([facility]) Systolic blood pressure 126 mm[Hg] 126 mm[Hg] A THENA ([facility]) Diastolic blood pressure 82 mm[Hg] 82 mm[Hg] [facility]TH[facility] ([facility]) Body height 68 [in_i] 68 [in_i] [facility] ([facility]) Systolic blood pressure 126 mm[Hg] 126 mm[Hg] A THENA ([facility]) Diastolic blood pressure 82 mm[Hg] 82 mm[Hg] [facility]TH[facility]H ([facility]) Body height 68 [in_i] 68 [in_i] [facility] ([facility]) Systolic blood pressure 126 mm[Hg] 126 mm[Hg] A THENA ([facility]) Diastolic blood pressure 82 mm[Hg] 82 mm[Hg] [facility]TH[facility]H ([facility]) Body height 68 [in_i] 68 [in_i] [facility] ([facility]) Systolic blood pressure 126 mm[Hg] 126 mm[Hg] A THENA ([facility]) Diastolic blood pressure 82 mm[Hg] 82 mm[Hg] [facility]TH[facility] ([facility]) Body height 68 [in_i] 68 [in_i] [facility] ([facility]) Systolic blood pressure 126 mm[Hg] 126 mm[Hg] A THENA ([facility]) Diastolic blood pressure 82 mm[Hg] 82 mm[Hg] [facility]TH[facility] ([facility]) Body height 68 [in_i] 68 [in_i] [facility] ([facility]) Systolic blood pressure 126 mm[Hg] 126 mm[Hg] A THENA ([facility]) Systolic blood pressure 126 mm[Hg] 126 mm[Hg] A THENA ([facility]) Diastolic blood pressure 82 mm[Hg] 82 mm[Hg] [facility] ([facility]) Body height 68 [in_i] 68 [in_i] [facility] ([facility]) Diastolic blood pressure 82 mm[Hg] 82 mm[Hg] [facility] ([facility]) Body height 68 [in_i] 68 [in_i] [facility]TH[facility] ([facility]) Diastolic blood pressure 82 mm[Hg] 82 mm[Hg] [facility] ([facility]) Body height 68 [in_i] 68 [in_i] [facility]TH[facility] ([facility]) Systolic blood pressure 126 mm[Hg] 126 mm[Hg] A THENA ([facility]) Systolic blood pressure 126 mm[Hg] 126 mm[Hg] A THENA ([facility]) Diastolic blood pressure 82 mm[Hg] 82 mm[Hg] [facility]H ([facility]) Body height 68 [in_i] 68 [in_i] [facility] ([facility]) Systolic blood pressure 126 mm[Hg] 126 mm[Hg] A THENA ([facility]) Diastolic blood pressure 82 mm[Hg] 82 mm[Hg] [facility]H ([facility]) Body height 68 [in_i] 68 [in_i] [facility] ([facility]) Systolic blood pressure 126 mm[Hg] 126 mm[Hg] A THENA ([facility]) Systolic blood pressure 122 mm[Hg] 122 mm[Hg] M EDENT ([facility], ) Diastolic blood pressure 70 mm[Hg] 70 mm[Hg] MEDENT ([facility], ) Body height 68 [in_i] 68 [in_i] [facility] ([facility] [place], ) 5'8" Body weight 128.38 [lb_av] 128.38 [lb_av] MEDEN T ([facility], ) Body mass index (BMI) [Ratio] 19.5 kg/m2 19.5 k g/m2 [facility] ([facility], ) [place] body weight 154 [lb_av] 154 [facility] Body weight 58.231 kg 58.[address] [facility] ([facility] [place], ) Body surface area Derived from formula 1.69 m2 1.[address] [facility] ([facility], ) Systolic blood pressure 104 mm[Hg] 104 mm[Hg] A THENA ([facility]) Diastolic blood pressure 67 mm[Hg] 67 mm[Hg] [facility]TH[facility]H ([facility]) Body height 68 [in_i] 68 [in_i] [facility] ([facility]) Diastolic blood pressure 67 mm[Hg] 67 mm[Hg] [facility] ([facility]) Body height 68 [in_i] 68 [in_i] [facility] ([facility]) Systolic blood pressure 104 mm[Hg] 104 mm[Hg] A THENA ([facility]) Diastolic blood pressure 67 mm[Hg] 67 mm[Hg] ASNTHOSH ([facility]) Body height 68 [in_i] 68 [in_i] [facility] ([facility]) Systolic blood pressure 104 mm[Hg] 104 mm[Hg] A THENA ([facility]) Diastolic blood pressure 67 mm[Hg] 67 mm[Hg] [facility]TH[facility]H ([facility]) Body height 68 [in_i] 68 [in_i] [facility] ([facility]) Systolic blood pressure 104 mm[Hg] 104 mm[Hg] A THENA ([facility]) Diastolic blood pressure 67 mm[Hg] 67 mm[Hg] [facility]TH[facility]H ([facility]) Body height 68 [in_i] 68 [in_i] [facility] ([facility]) Systolic blood pressure 104 mm[Hg] 104 mm[Hg] A THENA ([facility]) Diastolic blood pressure 67 mm[Hg] 67 mm[Hg] [facility] ([facility]) Body height 68 [in_i] 68 [in_i] [facility] ([facility]) Systolic blood pressure 104 mm[Hg] 104 mm[Hg] A THENA ([facility]) Diastolic blood pressure 67 mm[Hg] 67 mm[Hg] [facility]TH[facility]H ([facility]) Body height 68 [in_i] 68 [in_i] [facility] ([facility]) Systolic blood pressure 104 mm[Hg] 104 mm[Hg] A THENA ([facility]) Diastolic blood pressure 67 mm[Hg] 67 mm[Hg] [facility]TH[facility]H ([facility]) Body height 68 [in_i] 68 [in_i] [facility] ([facility]) Systolic blood pressure 104 mm[Hg] 104 mm[Hg] A THENA ([facility]) Diastolic blood pressure 67 mm[Hg] 67 mm[Hg] [facility]TH[facility]H ([facility]) Body height 68 [in_i] 68 [in_i] [facility] ([facility]) Systolic blood pressure 104 mm[Hg] 104 mm[Hg] A THENA ([facility]) Diastolic blood pressure 67 mm[Hg] 67 mm[Hg] [facility]TH[facility]H ([facility]) Body height 68 [in_i] 68 [in_i] [facility] ([facility]) Systolic blood pressure 104 mm[Hg] 104 mm[Hg] A THENA ([facility]) Diastolic blood pressure 67 mm[Hg] 67 mm[Hg] [facility]TH[facility]H ([facility]) Body height 68 [in_i] 68 [in_i] [facility] ([facility]) Systolic blood pressure 104 mm[Hg] 104 mm[Hg] A THENA ([facility]) Diastolic blood pressure 67 mm[Hg] 67 mm[Hg] [facility]TH[facility]H ([facility]) Body height 68 [in_i] 68 [in_i] [facility] ([facility]) Systolic blood pressure 104 mm[Hg] 104 mm[Hg] A THENA ([facility]) Diastolic blood pressure 67 mm[Hg] 67 mm[Hg] [facility]TH[facility]H ([facility]) Body height 68 [in_i] 68 [in_i] [facility] ([facility]) Systolic blood pressure 104 mm[Hg] 104 mm[Hg] A THENA ([facility]) Diastolic blood pressure 67 mm[Hg] 67 mm[Hg] SANTH[facility]H ([facility]) Body height 68 [in_i] 68 [in_i] [facility]TH[facility] ([facility]) Systolic blood pressure 104 mm[Hg] 104 mm[Hg] A THENA ([facility]) Diastolic blood pressure 67 mm[Hg] 67 mm[Hg] [facility]TH[facility]H ([facility]) Body height 68 [in_i] 68 [in_i] [facility] ([facility]) Systolic blood pressure 104 mm[Hg] 104 mm[Hg] A THENA ([facility]) Diastolic blood pressure 67 mm[Hg] 67 mm[Hg] [facility]TH[facility]H ([facility]) Body height 68 [in_i] 68 [in_i] [facility] ([facility]) Systolic blood pressure 104 mm[Hg] 104 mm[Hg] A THENA ([facility]) Diastolic blood pressure 67 mm[Hg] 67 mm[Hg] [facility]TH[facility]H ([facility]) Body height 68 [in_i] 68 [in_i] [facility]TH[facility]H ([facility]) Systolic blood pressure 104 mm[Hg] 104 mm[Hg] A THENA ([facility]) Diastolic blood pressure 67 mm[Hg] 67 mm[Hg] SANTH[facility]H ([facility]) Body height 68 [in_i] 68 [in_i] [facility] ([facility]) Systolic blood pressure 104 mm[Hg] 104 mm[Hg] A THENA ([facility]) Diastolic blood pressure 67 mm[Hg] 67 mm[Hg] [facility]TH[facility]H ([facility]) Body height 68 [in_i] 68 [in_i] [facility] ([facility]) Systolic blood pressure 104 mm[Hg] 104 mm[Hg] A THENA ([facility]) Diastolic blood pressure 67 mm[Hg] 67 mm[Hg] [facility]TH[facility]H ([facility]) Body height 68 [in_i] 68 [in_i] [facility] ([facility]) Systolic blood pressure 104 mm[Hg] 104 mm[Hg] A THENA ([facility]) Diastolic blood pressure 67 mm[Hg] 67 mm[Hg] [facility]TH[facility]H ([facility]) Body height 68 [in_i] 68 [in_i] [facility]H ([facility]) Systolic blood pressure 104 mm[Hg] 104 mm[Hg] A THENA ([facility]) Body weight 132 [lb_av] 132 [lb_av] eCW1 ([facility]) Body height 68 [in_i] 68 [in_i] eCW1 ([facility]) Body mass index (BMI) [Ratio] 20.07 kg/m2 20.07 kg/m2 W1 ([facility]) Heart rate 80 /min 80 /min eCW1 ([facility]) Respiratory rate 18 /min 18 /min eCW1 ([facility]) Body temperature 97.1 [degF] 97.1 [degF] eCW1 ( [facility]) Systolic blood pressure 126 mm[Hg] 126 mm[Hg] e CW1 ([facility]) Diastolic blood pressure 76 mm[Hg] 76 mm[Hg] eCW1 ([facility]) Diastolic blood pressure 74 mm[Hg] 74 mm[Hg] SANTHOSH ([facility]) Body height 68 [in_i] 68 [in_i] [facility]H ([facility]) Body mass index (BMI) [Ratio] 19.6 kg/m2 19.6 k g/m2 [facility]H ([facility]) Systolic blood pressure 116 mm[Hg] 116 mm[Hg] A THENA ([facility]) Body weight 129 [lb_av] 129 [lb_av] [facility] ([facility]) Diastolic blood pressure 74 mm[Hg] 74 mm[Hg] SANTHOSH ([facility]) Body height 68 [in_i] 68 [in_i] SANTHOSH ([facility]) Body mass index (BMI) [Ratio] 19.6 kg/m2 19.6 k g/m2 SANTHOSH ([facility]) Systolic blood pressure 116 mm[Hg] 116 mm[Hg] A THENA ([facility]) Body weight 129 [lb_av] 129 [lb_av] [facility]H ([facility]) Diastolic blood pressure 74 mm[Hg] 74 mm[Hg] SANTH[facility]H ([facility]) Body height 68 [in_i] 68 [in_i] SANTHOSH ([facility]) Body mass index (BMI) [Ratio] 19.6 kg/m2 19.6 k g/m2 SANTHOSH ([facility]) Systolic blood pressure 116 mm[Hg] 116 mm[Hg] A THENA ([facility]) Body weight 129 [lb_av] 129 [lb_av] [facility]H ([facility]) Diastolic blood pressure 74 mm[Hg] 74 mm[Hg] [facility] [facility] Body height 68 [in_i] 68 [in_i] [facility]THOS[facility] ([facility]) Body mass index (BMI) [Ratio] 19.6 kg/m2 19.6 k g/m2 [facility] ([facility]) Systolic blood pressure 116 mm[Hg] 116 mm[Hg] A THENA ([facility]) Body weight 129 [lb_av] 129 [lb_av] [facility] ([facility]) Diastolic blood pressure 74 mm[Hg] 74 mm[Hg] [facility] ([facility]) Body height 68 [in_i] 68 [in_i] [facility] ([facility]) Body mass index (BMI) [Ratio] 19.6 kg/m2 19.6 k g/m2 [facility] ([facility]) Systolic blood pressure 116 mm[Hg] 116 mm[Hg] A THENA ([facility]) Body weight 129 [lb_av] 129 [lb_av] [facility] ([facility]) Diastolic blood pressure 74 mm[Hg] 74 mm[Hg] [facility] ([facility]) Body height 68 [in_i] 68 [in_i] [facility] ([facility]) Body mass index (BMI) [Ratio] 19.6 kg/m2 19.6 k g/m2 [facility] ([facility]) Systolic blood pressure 116 mm[Hg] 116 mm[Hg] A THENA ([facility]) Body weight 129 [lb_av] 129 [lb_av] [facility] ([facility]) Diastolic blood pressure 74 mm[Hg] 74 mm[Hg] [facility] ([facility]) Body height 68 [in_i] 68 [in_i] [facility] ([facility]) Body mass index (BMI) [Ratio] 19.6 kg/m2 19.6 k g/m2 [facility] ([facility]) Systolic blood pressure 116 mm[Hg] 116 mm[Hg] A THENA ([facility]) Body weight 129 [lb_av] 129 [lb_av] [facility] ([facility]) Diastolic blood pressure 74 mm[Hg] 74 mm[Hg] [facility] ([facility]) Body height 68 [in_i] 68 [in_i] [facility] ([facility]) Body mass index (BMI) [Ratio] 19.6 kg/m2 19.6 k g/m2 [facility] ([facility]) Systolic blood pressure 116 mm[Hg] 116 mm[Hg] A THENA ([facility]) Body weight 129 [lb_av] 129 [lb_av] [facility] ([facility]) Diastolic blood pressure 74 mm[Hg] 74 mm[Hg] [facility] ([facility]) Body height 68 [in_i] 68 [in_i] [facility] ([facility]) Body mass index (BMI) [Ratio] 19.6 kg/m2 19.6 k g/m2 [facility] ([facility]) Systolic blood pressure 116 mm[Hg] 116 mm[Hg] A THENA ([facility]) Body weight 129 [lb_av] 129 [lb_av] [facility] ([facility]) Diastolic blood pressure 74 mm[Hg] 74 mm[Hg] [facility] ([facility]) Body height 68 [in_i] 68 [in_i] [facility] ([facility]) Body mass index (BMI) [Ratio] 19.6 kg/m2 19.6 k g/m2 [facility] ([facility]) Systolic blood pressure 116 mm[Hg] 116 mm[Hg] A THENA ([facility]) Body weight 129 [lb_av] 129 [lb_av] [facility] ([facility]) Diastolic blood pressure 74 mm[Hg] 74 mm[Hg] [facility] ([facility]) Body height 68 [in_i] 68 [in_i] [facility] ([facility]) Body mass index (BMI) [Ratio] 19.6 kg/m2 19.6 k g/m2 [facility] ([facility]) Systolic blood pressure 116 mm[Hg] 116 mm[Hg] A THENA ([facility]) Body weight 129 [lb_av] 129 [lb_av] [facility] ([facility]) Diastolic blood pressure 74 mm[Hg] 74 mm[Hg] [facility] ([facility]) Body height 68 [in_i] 68 [in_i] [facility] ([facility]) Body mass index (BMI) [Ratio] 19.6 kg/m2 19.6 k g/m2 [facility] ([facility]) Systolic blood pressure 116 mm[Hg] 116 mm[Hg] A THENA ([facility]) Body weight 129 [lb_av] 129 [lb_av] [facility] ([facility]) Diastolic blood pressure 74 mm[Hg] 74 mm[Hg] [facility] ([facility]) Body height 68 [in_i] 68 [in_i] [facility] ([facility]) Body mass index (BMI) [Ratio] 19.6 kg/m2 19.6 k g/m2 [facility] ([facility]) Systolic blood pressure 116 mm[Hg] 116 mm[Hg] A THENA ([facility]) Body weight 129 [lb_av] 129 [lb_av] [facility] ([facility]) Diastolic blood pressure 74 mm[Hg] 74 mm[Hg] [facility] ([facility]) Body height 68 [in_i] 68 [in_i] [facility] ([facility]) Body mass index (BMI) [Ratio] 19.6 kg/m2 19.6 k g/m2 [facility] ([facility]) Systolic blood pressure 116 mm[Hg] 116 mm[Hg] A THENA ([facility]) Body weight 129 [lb_av] 129 [lb_av] [facility] ([facility]) Diastolic blood pressure 74 mm[Hg] 74 mm[Hg] [facility] ([facility]) Body height 68 [in_i] 68 [in_i] [facility] ([facility]) Body mass index (BMI) [Ratio] 19.6 kg/m2 19.6 k g/m2 [facility] ([facility]) Systolic blood pressure 116 mm[Hg] 116 mm[Hg] A THENA ([facility]) Body weight 129 [lb_av] 129 [lb_av] [facility] ([facility]) Systolic blood pressure 116 mm[Hg] 116 mm[Hg] A THENA ([facility]) Diastolic blood pressure 74 mm[Hg] 74 mm[Hg] [facility] ([facility]) Body height 68 [in_i] 68 [in_i] [facility] ([facility]) Body mass index (BMI) [Ratio] 19.6 kg/m2 19.6 k g/m2 [facility] ([facility]) Body weight 129 [lb_av] 129 [lb_av] [facility] ([facility]) Diastolic blood pressure 74 mm[Hg] 74 mm[Hg] [facility] ([facility]) Body height 68 [in_i] 68 [in_i] [facility] ([facility]) Body mass index (BMI) [Ratio] 19.6 kg/m2 19.6 k g/m2 [facility] ([facility]) Systolic blood pressure 116 mm[Hg] 116 mm[Hg] A THENA ([facility]) Body weight 129 [lb_av] 129 [lb_av] [facility] ([facility]) Diastolic blood pressure 74 mm[Hg] 74 mm[Hg] [facility] ([facility]) Body height 68 [in_i] 68 [in_i] [facility] ([facility]) Body mass index (BMI) [Ratio] 19.6 kg/m2 19.6 k g/m2 [facility] ([facility]) Systolic blood pressure 116 mm[Hg] 116 mm[Hg] A THENA ([facility]) Body weight 129 [lb_av] 129 [lb_av] [facility] ([facility]) Systolic blood pressure 116 mm[Hg] 116 mm[Hg] A THENA ([facility]) Diastolic blood pressure 74 mm[Hg] 74 mm[Hg] [facility] ([facility]) Body height 68 [in_i] 68 [in_i] [facility] ([facility]) Body mass index (BMI) [Ratio] 19.6 kg/m2 19.6 k g/m2 [facility] ([facility]) Body weight 129 [lb_av] 129 [lb_av] [facility] ([facility]) Diastolic blood pressure 74 mm[Hg] 74 mm[Hg] [facility] ([facility]) Body height 68 [in_i] 68 [in_i] [facility] ([facility]) Body mass index (BMI) [Ratio] 19.6 kg/m2 19.6 k g/m2 [facility] ([facility]) Systolic blood pressure 116 mm[Hg] 116 mm[Hg] A THENA ([facility]) Body weight 129 [lb_av] 129 [lb_av] [facility] ([facility]) Systolic blood pressure 116 mm[Hg] 116 mm[Hg] A THENA ([facility]) Body weight 129 [lb_av] 129 [lb_av] [facility] ([facility]) Diastolic blood pressure 74 mm[Hg] 74 mm[Hg] [facility] ([facility]) Body height 68 [in_i] 68 [in_i] [facility] ([facility]) Body mass index (BMI) [Ratio] 19.6 kg/m2 19.6 k g/m2 [facility] ([facility]) Diastolic blood pressure 74 mm[Hg] 74 mm[Hg] [facility] ([facility]) Body height 68 [in_i] 68 [in_i] [facility] ([facility]) Body mass index (BMI) [Ratio] 19.6 kg/m2 19.6 k g/m2 [facility] ([facility]) Systolic blood pressure 116 mm[Hg] 116 mm[Hg] A THENA ([facility]) Body weight 129 [lb_av] 129 [lb_av] [facility] ([facility]) Diastolic blood pressure 74 mm[Hg] 74 mm[Hg] [facility] ([facility]) Body height 68 [in_i] 68 [in_i] [facility] ([facility]) Body mass index (BMI) [Ratio] 19.6 kg/m2 19.6 k g/m2 [facility] ([facility]) Systolic blood pressure 116 mm[Hg] 116 mm[Hg] A THENA ([facility]) Body weight 129 [lb_av] 129 [lb_av] [facility] ([facility]) Body mass index (BMI) [Ratio] 19.6 kg/m2 19.6 k g/m2 [facility] ([facility]) Systolic blood pressure 116 mm[Hg] 116 mm[Hg] A THENA ([facility]) Body weight 129 [lb_av] 129 [lb_av] [facility] ([facility]) Diastolic blood pressure 74 mm[Hg] 74 mm[Hg] [facility] ([facility]) Body height 68 [in_i] 68 [in_i] [facility] ([facility]) Body weight 130.6 [lb_av] 130.6 [lb_av] eCW1 ([facility]) Body height 68 [in_i] 68 [in_i] eCW1 ([facility]) Body mass index (BMI) [Ratio] 19.86 kg/m2 19.86 kg/m2 eCW1 ([facility]) Heart rate 85 /min 85 /min eCW1 ([facility]) Respiratory rate 18 /min 18 /min eCW1 ([facility]) Body temperature 97.8 [degF] 97.8 [degF] eCW1 ( [facility]) Systolic blood pressure 120 mm[Hg] 120 mm[Hg] e CW1 ([facility]) Diastolic blood pressure 80 mm[Hg] 80 mm[Hg] eCW1 ([facility]) Diastolic blood pressure 77 mm[Hg] 77 mm[Hg] [facility] ([facility]) Body height 68 [in_i] 68 [in_i] [facility] ([facility]) Systolic blood pressure 123 mm[Hg] 123 mm[Hg] A THENA ([facility]) Diastolic blood pressure 77 mm[Hg] 77 mm[Hg] [facility] ([facility]) Body height 68 [in_i] 68 [in_i] [facility] ([facility]) Systolic blood pressure 123 mm[Hg] 123 mm[Hg] A THENA ([facility]) Diastolic blood pressure 77 mm[Hg] 77 mm[Hg] [facility] ([facility]) Body height 68 [in_i] 68 [in_i] [facility] ([facility]) Systolic blood pressure 123 mm[Hg] 123 mm[Hg] A THENA ([facility]) Diastolic blood pressure 77 mm[Hg] 77 mm[Hg] [facility] ([facility]) Body height 68 [in_i] 68 [in_i] [facility] ([facility]) Systolic blood pressure 123 mm[Hg] 123 mm[Hg] A THENA ([facility]) Diastolic blood pressure 77 mm[Hg] 77 mm[Hg] [facility] ([facility]) Body height 68 [in_i] 68 [in_i] [facility] ([facility]) Systolic blood pressure 123 mm[Hg] 123 mm[Hg] A THENA ([facility]) Diastolic blood pressure 77 mm[Hg] 77 mm[Hg] [facility] ([facility]) Body height 68 [in_i] 68 [in_i] [facility] ([facility]) Systolic blood pressure 123 mm[Hg] 123 mm[Hg] A THENA ([facility]) Diastolic blood pressure 77 mm[Hg] 77 mm[Hg] [facility] ([facility]) Body height 68 [in_i] 68 [in_i] [facility] ([facility]) Systolic blood pressure 123 mm[Hg] 123 mm[Hg] A THENA ([facility]) Diastolic blood pressure 77 mm[Hg] 77 mm[Hg] [facility] ([facility]) Body height 68 [in_i] 68 [in_i] [facility] ([facility]) Systolic blood pressure 123 mm[Hg] 123 mm[Hg] A THENA ([facility]) Diastolic blood pressure 77 mm[Hg] 77 mm[Hg] [facility] ([facility]) Body height 68 [in_i] 68 [in_i] [facility] ([facility]) Systolic blood pressure 123 mm[Hg] 123 mm[Hg] A THENA ([facility]) Diastolic blood pressure 77 mm[Hg] 77 mm[Hg] [facility] ([facility]) Body height 68 [in_i] 68 [in_i] [facility] ([facility]) Systolic blood pressure 123 mm[Hg] 123 mm[Hg] A THENA ([facility]) Diastolic blood pressure 77 mm[Hg] 77 mm[Hg] [facility] ([facility]) Body height 68 [in_i] 68 [in_i] [facility] ([facility]) Systolic blood pressure 123 mm[Hg] 123 mm[Hg] A THENA ([facility]) Diastolic blood pressure 77 mm[Hg] 77 mm[Hg] [facility] ([facility]) Body height 68 [in_i] 68 [in_i] [facility] ([facility]) Systolic blood pressure 123 mm[Hg] 123 mm[Hg] A THENA ([facility]) Systolic blood pressure 123 mm[Hg] 123 mm[Hg] A THENA ([facility]) Body height 68 [in_i] 68 [in_i] [place] ([facility]) Diastolic blood pressure 77 mm[Hg] 77 mm[Hg] [facility] ([facility]) Body height 68 [in_i] 68 [in_i] [facility] ([facility]) Diastolic blood pressure 77 mm[Hg] 77 mm[Hg] [facility] ([facility]) Systolic blood pressure 123 mm[Hg] 123 mm[Hg] A THENA ([facility]) Diastolic blood pressure 77 mm[Hg] 77 mm[Hg] [facility] ([facility]) Body height 68 [in_i] 68 [in_i] [facility] ([facility]) Systolic blood pressure 123 mm[Hg] 123 mm[Hg] A THENA ([facility]) Diastolic blood pressure 77 mm[Hg] 77 mm[Hg] [facility] ([facility]) Body height 68 [in_i] 68 [in_i] [facility] ([facility]) Systolic blood pressure 123 mm[Hg] 123 mm[Hg] A THENA ([facility]) Diastolic blood pressure 77 mm[Hg] 77 mm[Hg] [facility] ([facility]) Body height 68 [in_i] 68 [in_i] [place] ([facility]) Systolic blood pressure 123 mm[Hg] 123 mm[Hg] A THENA ([facility]) Diastolic blood pressure 77 mm[Hg] 77 mm[Hg] [facility] ([facility]) Body height 68 [in_i] 68 [in_i] [place] ([facility]) Systolic blood pressure 123 mm[Hg] 123 mm[Hg] A THENA ([facility]) Diastolic blood pressure 77 mm[Hg] 77 mm[Hg] [facility] ([facility]) Body height 68 [in_i] 68 [in_i] [facility] ([facility]) Systolic blood pressure 123 mm[Hg] 123 mm[Hg] A THENA ([facility]) Diastolic blood pressure 77 mm[Hg] 77 mm[Hg] [facility] ([facility]) Body height 68 [in_i] 68 [in_i] [facility] ([facility]) Systolic blood pressure 123 mm[Hg] 123 mm[Hg] A THENA ([facility]) Diastolic blood pressure 77 mm[Hg] 77 mm[Hg] [facility] ([facility]) Body height 68 [in_i] 68 [in_i] [facility] ([facility]) Systolic blood pressure 123 mm[Hg] 123 mm[Hg] A THENA ([facility]) Diastolic blood pressure 77 mm[Hg] 77 mm[Hg] [facility] ([facility]) Body height 68 [in_i] 68 [in_i] [facility] ([facility]) Systolic blood pressure 123 mm[Hg] 123 mm[Hg] A THENA ([facility]) Diastolic blood pressure 77 mm[Hg] 77 mm[Hg] [facility] ([facility]) Body height 68 [in_i] 68 [in_i] [facility] ([facility]) Systolic blood pressure 123 mm[Hg] 123 mm[Hg] A THENA ([facility]) Diastolic blood pressure 77 mm[Hg] 77 mm[Hg] [facility] ([facility]) Body height 68 [in_i] 68 [in_i] [facility] ([facility]) Systolic blood pressure 123 mm[Hg] 123 mm[Hg] A THENA ([facility]) Diastolic blood pressure 77 mm[Hg] 77 mm[Hg] [facility] ([facility]) Body height 68 [in_i] 68 [in_i] [facility] ([facility]) Systolic blood pressure 123 mm[Hg] 123 mm[Hg] A THENA ([facility]) Body weight 134.2 [lb_av] 134.2 [lb_av] eCW1 ([facility]) Body height 68 [in_i] 68 [in_i] eCW1 ([facility]) Body mass index (BMI) [Ratio] 20.40 kg/m2 20.40 kg/m2 eCW1 ([facility]) Heart rate 88 /min 88 /min eCW1 ([facility]) Respiratory rate 18 /min 18 /min eCW1 ([facility]) Body temperature 96.7 [degF] 96.7 [degF] eCW1 ( [facility]) Systolic blood pressure 120 mm[Hg] 120 mm[Hg] e CW1 ([facility]) Diastolic blood pressure 68 mm[Hg] 68 mm[Hg] eCW1 ([facility]) Systolic blood pressure 119 mm[Hg] 119 mm[Hg] A THENA ([facility]) Diastolic blood pressure 68 mm[Hg] 68 mm[Hg] [place] ([facility]) Diastolic blood pressure 68 mm[Hg] 68 mm[Hg] [facility] ([facility]) Body height 68 [in_i] 68 [in_i] [facility] ([facility]) Body height 68 [in_i] 68 [in_i] [place] ([facility]) Systolic blood pressure 119 mm[Hg] 119 mm[Hg] A THENA ([facility]) Diastolic blood pressure 68 mm[Hg] 68 mm[Hg] [facility] ([facility]) Body height 68 [in_i] 68 [in_i] [place] ([facility]) Systolic blood pressure 119 mm[Hg] 119 mm[Hg] A THENA ([facility]) Diastolic blood pressure 68 mm[Hg] 68 mm[Hg] [facility] ([facility]) Body height 68 [in_i] 68 [in_i] [place] ([facility]) Systolic blood pressure 119 mm[Hg] 119 mm[Hg] A THENA ([facility]) Diastolic blood pressure 68 mm[Hg] 68 mm[Hg] [facility] ([facility]) Body height 68 [in_i] 68 [in_i] [place] ([facility]) Systolic blood pressure 119 mm[Hg] 119 mm[Hg] A THENA ([facility]) Systolic blood pressure 119 mm[Hg] 119 mm[Hg] A THENA ([facility]) Diastolic blood pressure 68 mm[Hg] 68 mm[Hg] [facility] ([facility]) Body height 68 [in_i] 68 [in_i] [facility] ([facility]) Body height 68 [in_i] 68 [in_i] [facility] ([facility]) Diastolic blood pressure 68 mm[Hg] 68 mm[Hg] [facility] ([facility]) Systolic blood pressure 119 mm[Hg] 119 mm[Hg] A THENA ([facility]) Diastolic blood pressure 68 mm[Hg] 68 mm[Hg] [facility] ([facility]) Body height 68 [in_i] 68 [in_i] [place] ([facility]) Systolic blood pressure 119 mm[Hg] 119 mm[Hg] A THENA ([facility]) Systolic blood pressure 119 mm[Hg] 119 mm[Hg] A THENA ([facility]) Diastolic blood pressure 68 mm[Hg] 68 mm[Hg] [facility] ([facility]) Body height 68 [in_i] 68 [in_i] [facility] ([facility]) Diastolic blood pressure 68 mm[Hg] 68 mm[Hg] [facility] ([facility]) Body height 68 [in_i] 68 [in_i] [place] ([facility]) Systolic blood pressure 119 mm[Hg] 119 mm[Hg] A THENA ([facility]) Diastolic blood pressure 68 mm[Hg] 68 mm[Hg] [facility] ([facility]) Body height 68 [in_i] 68 [in_i] [facility] ([facility]) Systolic blood pressure 119 mm[Hg] 119 mm[Hg] A THENA ([facility]) Diastolic blood pressure 68 mm[Hg] 68 mm[Hg] [facility] ([facility]) Diastolic blood pressure 68 mm[Hg] 68 mm[Hg] [facility] [facility] Body height 68 [in_i] 68 [in_i] [facility] ([facility]) Systolic blood pressure 119 mm[Hg] 119 mm[Hg] A THENA ([facility]) Body height 68 [in_i] 68 [in_i] [facility] ([facility]) Systolic blood pressure 119 mm[Hg] 119 mm[Hg] A THENA ([facility]) Diastolic blood pressure 68 mm[Hg] 68 mm[Hg] [facility] ([facility]) Body height 68 [in_i] 68 [in_i] [facility] ([facility]) Systolic blood pressure 119 mm[Hg] 119 mm[Hg] A THENA ([facility]) Diastolic blood pressure 68 mm[Hg] 68 mm[Hg] [facility] ([facility]) Body height 68 [in_i] 68 [in_i] [facility] ([facility]) Systolic blood pressure 119 mm[Hg] 119 mm[Hg] A THENA ([facility]) Diastolic blood pressure 68 mm[Hg] 68 mm[Hg] [facility] ([facility]) Body height 68 [in_i] 68 [in_i] [facility] ([facility]) Systolic blood pressure 119 mm[Hg] 119 mm[Hg] A THENA ([facility]) Diastolic blood pressure 68 mm[Hg] 68 mm[Hg] [facility] ([facility]) Body height 68 [in_i] 68 [in_i] [facility] ([facility]) Systolic blood pressure 119 mm[Hg] 119 mm[Hg] A THENA ([facility]) Diastolic blood pressure 68 mm[Hg] 68 mm[Hg] [facility] ([facility]) Body height 68 [in_i] 68 [in_i] [facility] ([facility]) Systolic blood pressure 119 mm[Hg] 119 mm[Hg] A THENA ([facility]) Diastolic blood pressure 68 mm[Hg] 68 mm[Hg] [facility] ([facility]) Body height 68 [in_i] 68 [in_i] [facility] ([facility]) Systolic blood pressure 119 mm[Hg] 119 mm[Hg] A THENA ([facility]) Diastolic blood pressure 68 mm[Hg] 68 mm[Hg] [facility] ([facility]) Body height 68 [in_i] 68 [in_i] [facility] ([facility]) Systolic blood pressure 119 mm[Hg] 119 mm[Hg] A THENA ([facility]) Body height 68 [in_i] 68 [in_i] [facility] ([facility]) Systolic blood pressure 119 mm[Hg] 119 mm[Hg] A THENA ([facility]) Diastolic blood pressure 68 mm[Hg] 68 mm[Hg] [facility] ([facility]) Diastolic blood pressure 68 mm[Hg] 68 mm[Hg] [facility] ([facility]) Body height 68 [in_i] 68 [in_i] [facility] ([facility]) Systolic blood pressure 119 mm[Hg] 119 mm[Hg] A THENA ([facility]) Diastolic blood pressure 68 mm[Hg] 68 mm[Hg] [facility] ([facility]) Body height 68 [in_i] 68 [in_i] [facility] ([facility]) Systolic blood pressure 119 mm[Hg] 119 mm[Hg] A THENA ([facility]) Diastolic blood pressure 68 mm[Hg] 68 mm[Hg] [facility] ([facility]) Body height 68 [in_i] 68 [in_i] [facility] ([facility]) Systolic blood pressure 119 mm[Hg] 119 mm[Hg] A THENA ([facility]) Diastolic blood pressure 68 mm[Hg] 68 mm[Hg] [facility] ([facility]) Body height 68 [in_i] 68 [in_i] [facility] ([facility]) Systolic blood pressure 119 mm[Hg] 119 mm[Hg] A THENA ([facility]) Diastolic blood pressure 68 mm[Hg] 68 mm[Hg] [facility] ([facility]) Body height 68 [in_i] 68 [in_i] [facility] ([facility]) Systolic blood pressure 119 mm[Hg] 119 mm[Hg] A THENA ([facility]) Diastolic blood pressure 78 mm[Hg] 78 mm[Hg] [facility] ([facility]) Body height 68 [in_i] 68 [in_i] [facility] ([facility]) Systolic blood pressure 119 mm[Hg] 119 mm[Hg] A THENA ([facility]) Diastolic blood pressure 78 mm[Hg] 78 mm[Hg] [facility] ([facility]) Body height 68 [in_i] 68 [in_i] [facility] ([facility]) Systolic blood pressure 119 mm[Hg] 119 mm[Hg] A THENA ([facility]) Diastolic blood pressure 78 mm[Hg] 78 mm[Hg] [facility] ([facility]) Body height 68 [in_i] 68 [in_i] [facility] ([facility]) Systolic blood pressure 119 mm[Hg] 119 mm[Hg] A THENA ([facility]) Diastolic blood pressure 78 mm[Hg] 78 mm[Hg] [facility] ([facility]) Body height 68 [in_i] 68 [in_i] [facility] ([facility]) Systolic blood pressure 119 mm[Hg] 119 mm[Hg] A THENA ([facility]) Diastolic blood pressure 78 mm[Hg] 78 mm[Hg] [facility] ([facility]) Body height 68 [in_i] 68 [in_i] [facility] ([facility]) Systolic blood pressure 119 mm[Hg] 119 mm[Hg] A THENA ([facility]) Diastolic blood pressure 78 mm[Hg] 78 mm[Hg] [facility] ([facility]) Body height 68 [in_i] 68 [in_i] [facility] ([facility]) Systolic blood pressure 119 mm[Hg] 119 mm[Hg] A THENA ([facility]) Diastolic blood pressure 78 mm[Hg] 78 mm[Hg] [facility] ([facility]) Body height 68 [in_i] 68 [in_i] [facility] ([facility]) Systolic blood pressure 119 mm[Hg] 119 mm[Hg] A THENA ([facility]) Diastolic blood pressure 78 mm[Hg] 78 mm[Hg] [facility] ([facility]) Body height 68 [in_i] 68 [in_i] [facility] ([facility]) Systolic blood pressure 119 mm[Hg] 119 mm[Hg] A THENA ([facility]) Diastolic blood pressure 78 mm[Hg] 78 mm[Hg] [facility] ([facility]) Body height 68 [in_i] 68 [in_i] [facility] ([facility]) Systolic blood pressure 119 mm[Hg] 119 mm[Hg] A THENA ([facility]) Diastolic blood pressure 78 mm[Hg] 78 mm[Hg] [facility] ([facility]) Body height 68 [in_i] 68 [in_i] [facility] ([facility]) Systolic blood pressure 119 mm[Hg] 119 mm[Hg] A THENA ([facility]) Diastolic blood pressure 78 mm[Hg] 78 mm[Hg] [facility] ([facility]) Body height 68 [in_i] 68 [in_i] [facility] ([facility]) Systolic blood pressure 119 mm[Hg] 119 mm[Hg] A THENA ([facility]) Diastolic blood pressure 78 mm[Hg] 78 mm[Hg] [facility] ([facility]) Body height 68 [in_i] 68 [in_i] [facility] ([facility]) Systolic blood pressure 119 mm[Hg] 119 mm[Hg] A THENA ([facility]) Diastolic blood pressure 78 mm[Hg] 78 mm[Hg] [facility] ([facility]) Body height 68 [in_i] 68 [in_i] [facility] ([facility]) Systolic blood pressure 119 mm[Hg] 119 mm[Hg] A THENA ([facility]) Diastolic blood pressure 78 mm[Hg] 78 mm[Hg] [facility] ([facility]) Body height 68 [in_i] 68 [in_i] [facility] ([facility]) Systolic blood pressure 119 mm[Hg] 119 mm[Hg] A THENA ([facility]) Diastolic blood pressure 78 mm[Hg] 78 mm[Hg] [facility] ([facility]) Body height 68 [in_i] 68 [in_i] [facility] ([facility]) Systolic blood pressure 119 mm[Hg] 119 mm[Hg] A THENA ([facility]) Diastolic blood pressure 78 mm[Hg] 78 mm[Hg] [facility] ([facility]) Body height 68 [in_i] 68 [in_i] [facility] ([facility]) Systolic blood pressure 119 mm[Hg] 119 mm[Hg] A THENA ([facility]) Diastolic blood pressure 78 mm[Hg] 78 mm[Hg] [facility] ([facility]) Body height 68 [in_i] 68 [in_i] [facility] ([facility]) Systolic blood pressure 119 mm[Hg] 119 mm[Hg] A THENA ([facility]) Diastolic blood pressure 78 mm[Hg] 78 mm[Hg] [facility] ([facility]) Body height 68 [in_i] 68 [in_i] [facility] ([facility]) Systolic blood pressure 119 mm[Hg] 119 mm[Hg] A THENA ([facility]) Body height 68 [in_i] 68 [in_i] [facility] ([facility]) Systolic blood pressure 119 mm[Hg] 119 mm[Hg] A THENA ([facility]) Diastolic blood pressure 78 mm[Hg] 78 mm[Hg] [facility] ([facility]) Diastolic blood pressure 78 mm[Hg] 78 mm[Hg] [facility] ([facility]) Body height 68 [in_i] 68 [in_i] [facility] ([facility]) Systolic blood pressure 119 mm[Hg] 119 mm[Hg] A THENA ([facility]) Diastolic blood pressure 78 mm[Hg] 78 mm[Hg] [facility] ([facility]) Body height 68 [in_i] 68 [in_i] [facility] ([facility]) Systolic blood pressure 119 mm[Hg] 119 mm[Hg] A THENA ([facility]) Diastolic blood pressure 78 mm[Hg] 78 mm[Hg] [facility] ([facility]) Body height 68 [in_i] 68 [in_i] [facility] ([facility]) Systolic blood pressure 119 mm[Hg] 119 mm[Hg] A THENA ([facility]) Diastolic blood pressure 78 mm[Hg] 78 mm[Hg] [facility] ([facility]) Body height 68 [in_i] 68 [in_i] [facility] ([facility]) Systolic blood pressure 119 mm[Hg] 119 mm[Hg] A THENA ([facility]) Diastolic blood pressure 78 mm[Hg] 78 mm[Hg] [facility] ([facility]) Body height 68 [in_i] 68 [in_i] [facility] ([facility]) Systolic blood pressure 119 mm[Hg] 119 mm[Hg] A THENA ([facility]) Diastolic blood pressure 78 mm[Hg] 78 mm[Hg] [facility] ([facility]) Body height 68 [in_i] 68 [in_i] [facility] ([facility]) Systolic blood pressure 119 mm[Hg] 119 mm[Hg] A THENA ([facility]) Diastolic blood pressure 78 mm[Hg] 78 mm[Hg] [facility] ([facility]) Body height 68 [in_i] 68 [in_i] [facility] ([facility]) Systolic blood pressure 119 mm[Hg] 119 mm[Hg] A THENA ([facility]) Diastolic blood pressure 78 mm[Hg] 78 mm[Hg] [facility] ([facility]) Body height 68 [in_i] 68 [in_i] [facility] ([facility]) Systolic blood pressure 119 mm[Hg] 119 mm[Hg] A THENA ([facility]) Patient Treatment Plan of Care Planned Activity Planned Date Details Description Data Source (s) Ondansetron 4 MG Disintegrating Oral Tablet 11/30/2020 12:00:00 AM EDT eCW1 ([facility]) Ondansetron 4 MG Disintegrating Oral Tablet 11/30/2020 12:00:00 AM EDT eCW1 ([facility]) Ondansetron 4 MG Disintegrating Oral Tablet 11/30/2020 12:00:00 AM EDT eCW1 ([facility]) Ondansetron 4 MG Disintegrating Oral Tablet 11/30/2020 12:00:00 AM EDT eCW1 ([facility]) Famotidine 20 MG Oral Tablet 02/23/2020 12:00:00 AM [facility] pantoprazole 40 MG Delayed Release Oral Tablet 02/23/2020 12:00:00 AM [facility] pantoprazole 40 MG Delayed Release Oral Tablet 11/19/2019 12:00:00 AM [facility] Ranitidine 300 MG Oral Tablet 04/22/2019 12:00:00 AM [facility] Famotidine 40 MG Oral Tablet 02/02/2019 12:00:00 AM [facility] sennosides, DETENTION 8.6 MG Oral Tablet [Senna-Time] [facility] ([facility]) ranitidine hydrochloride 150 mg tabs [facility] ([facility]) pantoprazole 20 MG Delayed Release Oral Tablet [Protonix] [facility] ([facility]) Promethazine Hydrochloride 25 MG Oral Tablet [facility] ([facility]) pantoprazole sodium 40 mg tbec [facility] ([facility]) Acetaminophen 325 MG / Oxycodone Hydrochloride 5 MG Oral Tablet [facility] ([facility]) ondansetron odt 4 mg tbdp A THENA ([facility]) Ondansetron 4 MG Oral Tablet [facility] ([facility]) 24 HR Nicotine 0.583 MG/HR Transdermal Patch [facility] ([facility]) Metronidazole 500 MG Oral Tablet [facility] ([facility]) metoclopramide hydrochloride 10 mg tabs [facility] ([facility]) Metoclopramide 5 MG Oral Tablet [facility] ([facility] Metoclopramide 10 MG Oral Tablet [facility] ([facility]) Acetaminophen 325 MG / Hydrocodone Bitartrate 5 MG Oral Tablet [facility] ([facility]) gabapentin 600 MG Oral Tablet [facility] ([facility]) gabapentin 800 mg tabs ATHE NA ([facility]) gabapentin 600 mg tabs ATHE NA ([facility]) gabapentin 400 mg caps ATHE NA ([facility]) Famotidine 40 MG Oral Tablet [facility] ([facility] Famotidine 20 MG Oral Tablet [facility] ([facility]) famotidine 40 mg tabs ATHEN A ([facility]) Ciprofloxacin 500 MG Oral Tablet [facility] ([facility]) chlorhexidine gluconate 1.2 MG/ML Mouthwash [facility] ([facility]) cefdinir 300 MG Oral Capsule [facility] ([facility]) Baclofen 10 MG Oral Tablet A THENA ([facility]) Amoxicillin 500 MG Oral Capsule [facility] ([facility]) tizanidine 4 MG Oral Tablet [facility] ([facility]) sennosides, DETENTION 8.6 MG Oral Tablet [Senna-Time] [facility] ([facility]) ranitidine hydrochloride 150 mg tabs [facility] ([facility]) pantoprazole 20 MG Delayed Release Oral Tablet [Protonix] [facility] ([facility]) Promethazine Hydrochloride 25 MG Oral Tablet [facility] ([facility]) pantoprazole sodium 40 mg tbec [facility] ([facility]) Acetaminophen 325 MG / Oxycodone Hydrochloride 5 MG Oral Tablet [facility] ([facility]) ondansetron odt 4 mg tbdp A THENA ([facility]) Ondansetron 4 MG Oral Tablet [facility] ([facility]) 24 HR Nicotine 0.583 MG/HR Transdermal Patch [facility] ([facility]) Metronidazole 500 MG Oral Tablet [facility] ([facility]) metoclopramide hydrochloride 10 mg tabs [facility] ([facility]) Metoclopramide 5 MG Oral Tablet [facility] ([facility]) Metoclopramide 10 MG Oral Tablet [facility] ([facility]) Acetaminophen 325 MG / Hydrocodone Bitartrate 5 MG Oral Tablet [facility] ([facility]) gabapentin 600 MG Oral Tablet [facility] ([facility]) gabapentin 800 mg tabs ATHE NA ([facility]) gabapentin 600 mg tabs ATHE NA ([facility]) gabapentin 400 mg caps ATHE NA ([facility]) Famotidine 40 MG Oral Tablet [facility] ([facility]) Famotidine 20 MG Oral Tablet [facility] ([facility]) famotidine 40 mg tabs ATHEN A ([facility]) Ciprofloxacin 500 MG Oral Tablet [facility] ([facility]) chlorhexidine gluconate 1.2 MG/ML Mouthwash [facility] ([facility]) cefdinir 300 MG Oral Capsule [facility] ([facility]) Baclofen 10 MG Oral Tablet A THENA ([facility]) Amoxicillin 500 MG Oral Capsule [facility] ([facility] tizanidine 4 MG Oral Tablet [facility] ([facility]) sennosides, DETENTION 8.6 MG Oral Tablet [Senna-Time] [facility] ([facility]) ranitidine hydrochloride 150 mg tabs [facility] ([facility]) pantoprazole 20 MG Delayed Release Oral Tablet [Protonix] [facility] ([facility]) Promethazine Hydrochloride 25 MG Oral Tablet [facility] ([facility]) pantoprazole sodium 40 mg tbec [facility] ([facility]) Acetaminophen 325 MG / Oxycodone Hydrochloride 5 MG Oral Tablet [facility] ([facility]) ondansetron odt 4 mg tbdp A THENA ([facility]) Ondansetron 4 MG Oral Tablet [facility] ([facility]) 24 HR Nicotine 0.583 MG/HR Transdermal Patch [facility] ([facility]) Metronidazole 500 MG Oral Tablet [facility] ([facility]) metoclopramide hydrochloride 10 mg tabs [facility] ([facility]) Metoclopramide 5 MG Oral Tablet [facility] ([facility]) Metoclopramide 10 MG Oral Tablet [facility] ([facility]) Acetaminophen 325 MG / Hydrocodone Bitartrate 5 MG Oral Tablet [facility] ([facility]) gabapentin 600 MG Oral Tablet [facility] ([facility]) gabapentin 800 mg tabs ATHE NA ([facility] gabapentin 600 mg tabs ATHE NA ([facility]) gabapentin 400 mg caps ATHE NA ([facility]) Famotidine 40 MG Oral Tablet [facility] ([facility]) Famotidine 20 MG Oral Tablet [facility] ([facility]) famotidine 40 mg tabs ATHEN A ([facility]) Ciprofloxacin 500 MG Oral Tablet [facility] ([facility]) chlorhexidine gluconate 1.2 MG/ML Mouthwash [facility] ([facility]) cefdinir 300 MG Oral Capsule [facility] ([facility]) Baclofen 10 MG Oral Tablet A THENA ([facility]) Amoxicillin 500 MG Oral Capsule [facility] ([facility]) tizanidine 4 MG Oral Tablet [facility] ([facility]) tizanidine 4 MG Oral Tablet [facility] ([facility]) sennosides, DETENTION 8.6 MG Oral Tablet [Senna-Time] [facility] ([facility]) ranitidine hydrochloride 150 mg tabs [facility] ([facility]) pantoprazole 20 MG Delayed Release Oral Tablet [Protonix] [facility] ([facility]) Promethazine Hydrochloride 25 MG Oral Tablet [facility] ([facility]) pantoprazole sodium 40 mg tbec [facility] ([facility]) Acetaminophen 325 MG / Oxycodone Hydrochloride 5 MG Oral Tablet [facility] ([facility]) ondansetron odt 4 mg tbdp A THENA ([facility]) Ondansetron 4 MG Oral Tablet [facility] ([facility]) 24 HR Nicotine 0.583 MG/HR Transdermal Patch [facility] ([facility]) Metronidazole 500 MG Oral Tablet [facility] ([facility]) metoclopramide hydrochloride 10 mg tabs [facility] ([facility]) Metoclopramide 5 MG Oral Tablet [facility] ([facility]) Metoclopramide 10 MG Oral Tablet [facility] ([facility]) Acetaminophen 325 MG / Hydrocodone Bitartrate 5 MG Oral Tablet [facility] ([facility]) gabapentin 600 MG Oral Tablet [facility] ([facility] gabapentin 800 mg tabs ATHE NA ([facility]) gabapentin 600 mg tabs ATHE NA ([facility]) gabapentin 400 mg caps ATHE NA ([facility]) Famotidine 40 MG Oral Tablet [facility] ([facility] [facility] Famotidine 20 MG Oral Tablet [facility] ([facility]) famotidine 40 mg tabs ATHEN A ([facility] Ciprofloxacin 500 MG Oral Tablet [facility] ([facility]) chlorhexidine gluconate 1.2 MG/ML Mouthwash [facility] ([facility]) cefdinir 300 MG Oral Capsule [facility] ([facility]) Baclofen 10 MG Oral Tablet A THENA ([facility]) Amoxicillin 500 MG Oral Capsule [facility] ([facility]) tizanidine 4 MG Oral Tablet [facility] ([facility]) sennosides, DETENTION 8.6 MG Oral Tablet [Senna-Time] [facility] ([facility]) ranitidine hydrochloride 150 mg tabs [facility] ([facility]) pantoprazole 20 MG Delayed Release Oral Tablet [Protonix] [facility] ([facility]) Promethazine Hydrochloride 25 MG Oral Tablet [facility] ([facility]) pantoprazole sodium 40 mg tbec [facility] ([facility]) Acetaminophen 325 MG / Oxycodone Hydrochloride 5 MG Oral Tablet [facility] ([facility]) ondansetron odt 4 mg tbdp A THENA ([facility]) Ondansetron 4 MG Oral Tablet [facility] ([facility]) 24 HR Nicotine 0.583 MG/HR Transdermal Patch [facility] ([facility]) Metronidazole 500 MG Oral Tablet [facility] ([facility]) metoclopramide hydrochloride 10 mg tabs [facility] ([facility]) Metoclopramide 5 MG Oral Tablet [facility] ([facility]) Metoclopramide 10 MG Oral Tablet [facility] ([facility]) Acetaminophen 325 MG / Hydrocodone Bitartrate 5 MG Oral Tablet [facility] ([facility]) gabapentin 600 MG Oral Tablet [facility] ([facility] gabapentin 800 mg tabs ATHE NA ([facility] gabapentin 600 mg tabs ATHE NA ([facility]) gabapentin 400 mg caps ATHE NA ([facility]) Famotidine 40 MG Oral Tablet [facility] ([facility]) Famotidine 20 MG Oral Tablet [facility] ([facility]) famotidine 40 mg tabs ATHEN A ([facility]) Ciprofloxacin 500 MG Oral Tablet [facility] ([facility]) chlorhexidine gluconate 1.2 MG/ML Mouthwash [facility] ([facility]) cefdinir 300 MG Oral Capsule [facility] ([facility]) Baclofen 10 MG Oral Tablet A THENA ([facility]) Amoxicillin 500 MG Oral Capsule [facility] ([facility]) tizanidine 4 MG Oral Tablet [facility] ([facility]) sennosides, DETENTION 8.6 MG Oral Tablet [Senna-Time] [facility] ([facility]) ranitidine hydrochloride 150 mg tabs [facility] ([facility]) pantoprazole 20 MG Delayed Release Oral Tablet [Protonix] [facility] ([facility]) Promethazine Hydrochloride 25 MG Oral Tablet [facility] ([facility]) pantoprazole sodium 40 mg tbec [facility] ([facility]) Acetaminophen 325 MG / Oxycodone Hydrochloride 5 MG Oral Tablet [facility] ([facility]) ondansetron odt 4 mg tbdp A THENA ([facility]) Ondansetron 4 MG Oral Tablet [facility] ([facility]) 24 HR Nicotine 0.583 MG/HR Transdermal Patch [facility] ([facility]) Metronidazole 500 MG Oral Tablet [facility] ([facility]) metoclopramide hydrochloride 10 mg tabs [facility] ([facility]) Metoclopramide 5 MG Oral Tablet [facility] ([facility]) Metoclopramide 10 MG Oral Tablet [facility] ([facility]) Acetaminophen 325 MG / Hydrocodone Bitartrate 5 MG Oral Tablet [facility] ([facility]) gabapentin 600 MG Oral Tablet [facility] ([facility] gabapentin 800 mg tabs ATHE NA ([facility] gabapentin 600 mg tabs ATHE NA ([facility]) gabapentin 400 mg caps ATHE NA ([facility]) Famotidine 40 MG Oral Tablet [facility] ([facility]) Famotidine 20 MG Oral Tablet [facility] ([facility]) famotidine 40 mg tabs ATHEN A ([facility]) Ciprofloxacin 500 MG Oral Tablet [facility] ([facility]) chlorhexidine gluconate 1.2 MG/ML Mouthwash [facility] ([facility]) cefdinir 300 MG Oral Capsule [facility] ([facility]) Baclofen 10 MG Oral Tablet A THENA ([facility]) Amoxicillin 500 MG Oral Capsule [facility] ([facility]) tizanidine 4 MG Oral Tablet [facility] ([facility]) ranitidine hydrochloride 150 mg tabs [facility] ([facility]) pantoprazole 20 MG Delayed Release Oral Tablet [Protonix] [facility] ([facility]) pantoprazole sodium 40 mg tbec [facility] ([facility]) ondansetron odt 4 mg tbdp A [facility] ([facility]) Ondansetron 4 MG Oral Tablet [facility] ([facility]) Metronidazole 500 MG Oral Tablet [facility] ([facility]) metoclopramide hydrochloride 10 mg tabs [facility] ([facility]) Acetaminophen 325 MG / Hydrocodone Bitartrate 5 MG Oral Tablet [facility] ([facility] gabapentin 600 MG Oral Tablet [facility] ([facility] gabapentin 800 mg tabs ATHE NA ([facility] gabapentin 600 mg tabs ATHE NA ([facility]) gabapentin 400 mg caps ATHE NA ([facility]) Famotidine 40 MG Oral Tablet [facility] ([facility]) Famotidine 20 MG Oral Tablet [facility] ([facility] famotidine 40 mg tabs ATHEN A ([facility]) tizanidine 4 MG Oral Tablet [facility] ([facility]) ranitidine hydrochloride 150 mg tabs [facility] ([facility]) pantoprazole 20 MG Delayed Release Oral Tablet [Protonix] [facility] ([facility]) pantoprazole sodium 40 mg tbec [facility] ([facility]) tizanidine 4 MG Oral Tablet [facility] ([facility]) ranitidine hydrochloride 150 mg tabs [facility] ([facility]) pantoprazole 20 MG Delayed Release Oral Tablet [Protonix] [facility] ([facility]) pantoprazole sodium 40 mg tbec [facility] ([facility]) ondansetron odt 4 mg tbdp A THENA ([facility]) Ondansetron 4 MG Oral Tablet [facility] ([facility]) metoclopramide hydrochloride 10 mg tabs [facility] ([facility]) Acetaminophen 325 MG / Hydrocodone Bitartrate 5 MG Oral Tablet [facility] ([facility]) gabapentin 600 MG Oral Tablet [facility] ([facility] gabapentin 800 mg tabs ATHE NA ([facility] gabapentin 600 mg tabs ATHE NA ([facility]) gabapentin 400 mg caps ATHE NA ([facility]) Famotidine 40 MG Oral Tablet [facility] ([facility]) Famotidine 20 MG Oral Tablet [facility] ([facility]) famotidine 40 mg tabs ATHEN A ([facility]) Amoxicillin 500 MG Oral Capsule [facility] ([facility]) ondansetron odt 4 mg tbdp A [facility]NA ([facility]) Ondansetron 4 MG Oral Tablet [facility] ([facility] Metronidazole 500 MG Oral Tablet [facility] ([facility]) metoclopramide hydrochloride 10 mg tabs [facility] ([facility] gabapentin 600 MG Oral Tablet [facility] ([facility] gabapentin 800 mg tabs ATHE NA ([facility] gabapentin 600 mg tabs ATHE NA ([facility]) gabapentin 400 mg caps ATHE NA ([facility]) Famotidine 40 MG Oral Tablet [facility] ([facility]) famotidine 40 mg tabs ATHEN A ([facility] Ciprofloxacin 500 MG Oral Tablet [facility] ([facility]) tizanidine 4 MG Oral Tablet [facility] ([facility] ranitidine hydrochloride 150 mg tabs [facility] ([facility]) pantoprazole 20 MG Delayed Release Oral Tablet [Protonix] [facility] ([facility]) pantoprazole sodium 40 mg tbec [facility] ([facility]) ondansetron odt 4 mg tbdp A THENA ([facility]) Ondansetron 4 MG Oral Tablet [facility] ([facility] Metronidazole 500 MG Oral Tablet [facility] ([facility]) metoclopramide hydrochloride 10 mg tabs [facility] ([facility] gabapentin 600 MG Oral Tablet [facility] ([facility] gabapentin 800 mg tabs ATHE NA ([facility]) gabapentin 600 mg tabs ATHE NA ([facility]) gabapentin 400 mg caps ATHE NA ([facility]) Famotidine 40 MG Oral Tablet [facility] ([facility]) famotidine 40 mg tabs ATHEN A ([facility] Ciprofloxacin 500 MG Oral Tablet [facility] ([facility]) tizanidine 4 MG Oral Tablet [facility] ([facility]) ranitidine hydrochloride 150 mg tabs [facility] ([facility]) pantoprazole 20 MG Delayed Release Oral Tablet [Protonix] [facility] ([facility]) pantoprazole sodium 40 mg tbec [facility] ([facility]) ondansetron odt 4 mg tbdp A THENA ([facility]) Ondansetron 4 MG Oral Tablet [facility] ([facility] Metronidazole 500 MG Oral Tablet [facility] ([facility]) metoclopramide hydrochloride 10 mg tabs [facility] ([facility] gabapentin 600 MG Oral Tablet [facility] ([facility] gabapentin 800 mg tabs ATHE NA ([facility]) gabapentin 600 mg tabs ATHE NA ([facility]) gabapentin 400 mg caps ATHE NA ([facility]) Famotidine 40 MG Oral Tablet [facility] ([facility] famotidine 40 mg tabs ATHEN A ([facility]) Ciprofloxacin 500 MG Oral Tablet [facility] ([facility]) ranitidine hydrochloride 150 mg tabs [facility] ([facility] pantoprazole 20 MG Delayed Release Oral Tablet [Protonix] [facility] ([facility]) pantoprazole sodium 40 mg tbec [facility] ([facility]) ondansetron odt 4 mg tbdp A THENA ([facility]) gabapentin 800 mg tabs ATHE NA ([facility]) gabapentin 600 mg tabs ATHE NA ([facility]) gabapentin 400 mg caps ATHE NA ([facility]) famotidine 40 mg tabs ATHEN A ([facility]) gabapentin 800 mg tabs ATHE NA ([facility]) gabapentin 600 mg tabs ATHE NA ([facility]) gabapentin 400 mg caps ATHE NA ([facility]) Famotidine 40 MG Oral Tablet [facility] ([facility]) Famotidine 20 MG Oral Tablet [facility] ([facility]) famotidine 40 mg tabs ATHEN A ([facility] Ciprofloxacin 500 MG Oral Tablet [facility] ([facility]) Amoxicillin 500 MG Oral Capsule [facility] ([facility]) tizanidine 4 MG Oral Tablet [facility] ([facility]) ranitidine hydrochloride 150 mg tabs [facility] ([facility]) pantoprazole 20 MG Delayed Release Oral Tablet [Protonix] [facility] ([facility]) pantoprazole sodium 40 mg tbec [facility] ([facility]) ondansetron odt 4 mg tbdp A THENA ([facility]) Ondansetron 4 MG Oral Tablet [facility] ([facility]) Metronidazole 500 MG Oral Tablet [facility] ([facility]) metoclopramide hydrochloride 10 mg tabs [facility] ([facility]) Acetaminophen 325 MG / Hydrocodone Bitartrate 5 MG Oral Tablet [facility] ([facility]) gabapentin 600 MG Oral Tablet [facility] ([facility] gabapentin 800 mg tabs ATHE NA ([facility] gabapentin 600 mg tabs ATHE NA ([facility]) gabapentin 400 mg caps ATHE NA ([facility]) Famotidine 40 MG Oral Tablet [facility] ([facility]) Famotidine 20 MG Oral Tablet [facility] ([facility]) famotidine 40 mg tabs ATHEN A ([facility]) Ciprofloxacin 500 MG Oral Tablet [facility] ([facility]) Amoxicillin 500 MG Oral Capsule [facility] ([facility]) tizanidine 4 MG Oral Tablet [facility] ([facility]) ranitidine hydrochloride 150 mg tabs [facility] ([facility]) pantoprazole 20 MG Delayed Release Oral Tablet [Protonix] [facility] ([facility]) pantoprazole sodium 40 mg tbec [facility] ([facility]) ondansetron odt 4 mg tbdp A THENA ([facility]) Ondansetron 4 MG Oral Tablet [facility] ([facility] Metronidazole 500 MG Oral Tablet [facility] ([facility]) metoclopramide hydrochloride 10 mg tabs [facility] ([facility]) Acetaminophen 325 MG / Hydrocodone Bitartrate 5 MG Oral Tablet [facility] ([facility] gabapentin 600 MG Oral Tablet [facility] ([facility] gabapentin 800 mg tabs ATHE NA ([facility]) gabapentin 600 mg tabs ATHE NA ([facility]) gabapentin 400 mg caps ATHE NA ([facility]) Famotidine 40 MG Oral Tablet [facility] ([facility]) Famotidine 20 MG Oral Tablet [facility] ([facility]) famotidine 40 mg tabs ATHEN A ([facility]) Ciprofloxacin 500 MG Oral Tablet [facility] ([facility]) Amoxicillin 500 MG Oral Capsule [facility] ([facility]) tizanidine 4 MG Oral Tablet [facility] ([facility]) ranitidine hydrochloride 150 mg tabs [facility] ([facility]) pantoprazole 20 MG Delayed Release Oral Tablet [Protonix] [facility] ([facility]) pantoprazole sodium 40 mg tbec [facility] ([facility]) ondansetron odt 4 mg tbdp A THENA ([facility]) Ondansetron 4 MG Oral Tablet [facility] ([facility]) Metronidazole 500 MG Oral Tablet [facility] ([facility]) metoclopramide hydrochloride 10 mg tabs [facility] ([facility]) Acetaminophen 325 MG / Hydrocodone Bitartrate 5 MG Oral Tablet [facility] ([facility]) gabapentin 600 MG Oral Tablet [facility] ([facility]) gabapentin 800 mg tabs ATHE NA ([facility] gabapentin 600 mg tabs ATHE NA ([facility]) gabapentin 400 mg caps ATHE NA ([facility]) Famotidine 40 MG Oral Tablet [facility] ([facility]) Famotidine 20 MG Oral Tablet [facility] ([facility]) famotidine 40 mg tabs ATHEN A ([facility]) Ciprofloxacin 500 MG Oral Tablet [facility] ([facility]) Amoxicillin 500 MG Oral Capsule [facility] ([facility]) ranitidine hydrochloride 150 mg tabs [facility] ([facility]) pantoprazole 20 MG Delayed Release Oral Tablet [Protonix] [facility] ([facility]) pantoprazole sodium 40 mg tbec [facility] ([facility]) ondansetron odt 4 mg tbdp A THENA ([facility]) metoclopramide hydrochloride 10 mg tabs [facility] ([facility] gabapentin 600 MG Oral Tablet [facility] ([facility] gabapentin 800 mg tabs ATHE NA ([facility]) gabapentin 600 mg tabs ATHE NA ([facility] gabapentin 400 mg caps ATHE NA ([facility]) famotidine 40 mg tabs ATHEN A ([facility]) ranitidine hydrochloride 150 mg tabs [facility] ([facility] pantoprazole 20 MG Delayed Release Oral Tablet [Protonix] [facility] ([facility]) pantoprazole sodium 40 mg tbec [facility] ([facility]) ondansetron odt 4 mg tbdp A THENA ([facility]) metoclopramide hydrochloride 10 mg tabs [facility] ([facility] gabapentin 600 MG Oral Tablet [facility] ([facility] gabapentin 800 mg tabs ATHE NA ([facility] gabapentin 600 mg tabs ATHE NA ([facility]) gabapentin 400 mg caps ATHE NA ([facility]) famotidine 40 mg tabs ATHEN A ([facility]) ranitidine hydrochloride 150 mg tabs [facility] ([facility]) pantoprazole 20 MG Delayed Release Oral Tablet [Protonix] [facility] ([facility]) pantoprazole sodium 40 mg tbec [facility] ([facility]) ondansetron odt 4 mg tbdp A THENA ([facility]) metoclopramide hydrochloride 10 mg tabs [facility] ([facility] gabapentin 600 MG Oral Tablet [facility] ([facility]) gabapentin 800 mg tabs ATHE NA ([facility] gabapentin 600 mg tabs ATHE NA ([facility] gabapentin 400 mg caps ATHE NA ([facility]) famotidine 40 mg tabs ATHEN A ([facility] ranitidine hydrochloride 150 mg tabs [facility] ([facility]) famotidine 40 mg tabs ATHEN A ([facility] ranitidine hydrochloride 150 mg tabs [facility] ([facility]) Ciprofloxacin 500 MG Oral Tablet [facility] ([facility]) Amoxicillin 500 MG Oral Capsule [facility] ([facility]) tizanidine 4 MG Oral Tablet [facility] ([facility]) ranitidine hydrochloride 150 mg tabs [facility] ([facility]) pantoprazole 20 MG Delayed Release Oral Tablet [Protonix] [facility] ([facility]) pantoprazole sodium 40 mg tbec [facility] ([facility]) ondansetron odt 4 mg tbdp A THENA ([facility] Ondansetron 4 MG Oral Tablet [facility] ([facility]) Metronidazole 500 MG Oral Tablet [facility] ([facility]) metoclopramide hydrochloride 10 mg tabs [facility] ([facility]) Acetaminophen 325 MG / Hydrocodone Bitartrate 5 MG Oral Tablet [facility] ([facility]) gabapentin 600 MG Oral Tablet [facility] ([facility] [facility]) metoclopramide hydrochloride 10 mg tabs [facility] ([facility]) gabapentin 600 MG Oral Tablet [facility] ([facility]) pantoprazole 20 MG Delayed Release Oral Tablet [Protonix] [facility] ([facility]) pantoprazole sodium 40 mg tbec [facility] ([facility] ondansetron odt 4 mg tbdp A [facility]NA ([facility]) metoclopramide hydrochloride 10 mg tabs [facility] ([facility]) gabapentin 600 MG Oral Tablet [facility] ([facility]) gabapentin 800 mg tabs ATHE NA ([facility]) gabapentin 600 mg tabs ATHE NA ([facility]) gabapentin 400 mg caps ATHE NA ([facility]) famotidine 40 mg tabs ATHEN A ([facility]) ranitidine hydrochloride 150 mg tabs [facility] ([facility]) pantoprazole 20 MG Delayed Release Oral Tablet [Protonix] [facility] ([facility]) pantoprazole sodium 40 mg tbec [facility] ([facility]) ondansetron odt 4 mg tbdp A THENA ([facility]) metoclopramide hydrochloride 10 mg tabs [facility] ([facility]) gabapentin 600 MG Oral Tablet [facility] ([facility]) gabapentin 800 mg tabs ATHE NA ([facility]) gabapentin 600 mg tabs ATHE NA ([facility]) gabapentin 400 mg caps ATHE NA ([facility]) famotidine 40 mg tabs ATHEN A ([facility]) ranitidine hydrochloride 150 mg tabs [facility] ([facility]) pantoprazole 20 MG Delayed Release Oral Tablet [Protonix] [facility] ([facility]) pantoprazole sodium 40 mg tbec [facility] ([facility]) ondansetron odt 4 mg tbdp A THE[facility] ([facility]) metoclopramide hydrochloride 10 mg tabs [facility] ([facility]) gabapentin 600 MG Oral Tablet [facility] ([facility]) gabapentin 800 mg tabs ATHE NA ([facility]) gabapentin 600 mg tabs ATHE NA ([facility]) gabapentin 400 mg caps ATHE NA ([facility]) famotidine 40 mg tabs ATHEN A ([facility]) ranitidine hydrochloride 150 mg tabs [facility] ([facility]) pantoprazole 20 MG Delayed Release Oral Tablet [Protonix] [facility] ([facility]) pantoprazole sodium 40 mg tbec [facility] ([facility]) ondansetron odt 4 mg tbdp A [facility] ([facility]) metoclopramide hydrochloride 10 mg tabs [facility] ([facility]) gabapentin 600 MG Oral Tablet [facility] ([facility]) gabapentin 800 mg tabs ATHE NA ([facility]) gabapentin 600 mg tabs ATHE NA ([facility]) gabapentin 400 mg caps ATHE NA ([facility]) famotidine 40 mg tabs ATHEN A ([facility]) gabapentin 800 mg tabs ATHE NA ([facility]) gabapentin 600 mg tabs ATHE NA ([facility]) gabapentin 400 mg caps ATHE NA ([facility]) famotidine 40 mg tabs ATHEN A ([facility]) pantoprazole 20 MG Delayed Release Oral Tablet [Protonix] [facility] ([facility]) pantoprazole sodium 40 mg tbec [facility] ([facility]) ondansetron odt 4 mg tbdp A THENA ([facility]) metoclopramide hydrochloride 10 mg tabs [facility] ([facility]) gabapentin 600 MG Oral Tablet [facility] ([facility]) gabapentin 800 mg tabs ATHE NA ([facility]) gabapentin 600 mg tabs ATHE NA ([facility]) gabapentin 400 mg caps ATHE NA ([facility]) ranitidine hydrochloride 150 mg tabs [facility] ([facility]) pantoprazole 20 MG Delayed Release Oral Tablet [Protonix] [facility] ([facility]) pantoprazole sodium 40 mg tbec [facility] ([facility]) ondansetron odt 4 mg tbdp A [facility] ([facility]) metoclopramide hydrochloride 10 mg tabs [facility] ([facility]) gabapentin 600 MG Oral Tablet [facility] ([facility])
--- NOTE | 2021-03-10 19:52 | REPVR ---
PROCEDURE INFORMATION: Exam: CT Abdomen And Pelvis With Contrast Exam date and time: 03/10/2021 7:15 PM Age: 50 years old Clinical indication: Abdominal pain; Generalized; Additional info: Abdominal pain; Wait for bun/cr TECHNIQUE: Imaging protocol: Computed tomography of the abdomen and pelvis with contrast. Radiation optimization: All CT scans at this facility use at least one of these dose optimization techniques: automated exposure control; mA and/or kV adjustment per patient size (includes targeted exams where dose is matched to clinical indication); or iterative reconstruction. Contrast material: ISOVUE 370; Contrast volume: 100 ml; Contrast route: INTRAVENOUS (IV); COMPARISON: CT ABD PELVIS W/O CONTRAST 12/08/2020 12:28 AM FINDINGS: Liver: 6 mm cyst segment 2 left lobe of the liver. Liver otherwise unremarkable. Gallbladder and bile ducts: Normal. No calcified stones. No ductal dilation. Pancreas: Visible pancreatic duct not significantly dilated. The pancreas otherwise unremarkable. Spleen: Normal. No splenomegaly. Adrenal glands: Normal. No mass. Kidneys and ureters: Normal. No hydronephrosis. Stomach and bowel: There is gastric distention. Clinical correlation to exclude gastroparesis or gastric outlet obstruction suggested. Mild inflammatory changes demonstrated in the proximal sigmoid colon with a boggy appearance of the colonic wall may be related to prior bouts of diverticulitis although mild acute or subacute diverticulitis not excluded. Appendix: No evidence of appendicitis. Intraperitoneal space: Unremarkable. No free air. No significant fluid collection. Vasculature: The aortoiliac vessels demonstrate moderate atherosclerotic calcification. Lymph nodes: Unremarkable. No enlarged lymph nodes. Urinary bladder: Unremarkable as visualized. Reproductive: The prostate gland demonstrates moderate hyperplasia. Bones/joints: Unremarkable. No acute fracture. Soft tissues: Unremarkable. IMPRESSION: 1. There is gastric distention. Clinical correlation to exclude gastroparesis or gastric outlet obstruction suggested. 2. Mild inflammatory changes demonstrated in the proximal sigmoid colon with a boggy appearance of the colonic wall may be related to prior bouts of diverticulitis although mild acute or subacute diverticulitis not excluded. 3. Moderate prostatic hyperplasia. Electronically signed by: René Miles On 03/10/2021 19:51:42 PM
[2021-03-10] MEDS ORDERED: METOCLOPRAMIDE INJ 10MG/2ML VIAL (J2765 PER 1) IV ONE (20:25)
[2021-03-10] MEDS ORDERED: REGL5TAB2 PO (21:23)
[2021-03-10 21:38] VITALS: BP 115/69
--- NOTE | 2021-03-11 17:50 | ED PDOC ---
Post-Departure Follow-Up dr collado faxed formal report of ct abd/p for fu Cristal Abarca MD Mar 11, 2021 17:50
== END 2021-03-10 21:51 | disposition home or self-care (01) ==
LOC: M ED 17:13
DX: K30 Functional dyspepsia (principal); F17.200 Nicotine dependence, unspecified, uncomplicated; F12.10 Cannabis abuse, uncomplicated; R14.0 Abdominal distension (gaseous); N40.0 Benign prostatic hyperplasia without lower urinary tract symptoms; Z79.899 Other long term (current) drug therapy; Z88.8 Allergy status to other drugs, medicaments and biological substances
CPT/HCPCS: 74177; 80048; 80076; 82150; 82550; 82553; 83605; 83690; 85025; 87040; 93041; 96361; 96374; 96375; 96376; 99285; J2270; J2405; J2765; Q9967

== ENCOUNTER 2021-07-29 16:56 | Emergency (ER) | payer OTHER ==
[~2021-07-29] VITALS: Ht 172.7 cm; Wt 63.6 kg
[~2021-07-29 16:56] MED LIST changes: -CEFD1CAP8 PO; +CEFD300C41 PO; -DICY20TA11 PO; +DICY20TA20 PO; -LEVO250T12 PO; +LEVO250T3 PO; +TIZA10TA; -TIZA4TAB4
[2021-07-29 17:04] VITALS: BP 163/97
[2021-07-29] MEDS ORDERED: METOCLOPRAMIDE INJ 10MG/2ML VIAL (J2765 PER 1) IV ONE (17:15)
[2021-07-29] MEDS ORDERED: NS 1,000 ML IV ONE (17:15)
[2021-07-29] MEDS ORDERED: MORPHINE 4 MG/ML 1ML VIAL/SYRINGE (J2270) IV ONE (17:15)
[2021-07-29 18:36] LABS: BASO % 0.2 % (0.0-1.0); HEMATOCRIT 54.8 % (42.0-52.0); HEMOGLOBIN 18.7 g/dl (13.5-17.5); LYMPH # 0.9 10^3/uL (1.5-5.0); LYMPH % 7.5 % (24.0-44.0); MEAN CORPUSCULAR HEMOGLOBIN 29.9 pg (27.0-33.0); MEAN CORPUSCULAR HGB CONC 34.1 g/dl (32.0-36.5); MEAN CORPUSCULAR VOLUME 87.7 fl (80.0-96.0); MONO # 0.5 10^3/uL (0.0-0.8); MONO % 4.4 % (2.0-8.0); NEUTROPHILS # 10.8 10^3/uL (1.5-8.5); NEUTROPHILS % 87.4 % (36.0-66.0); PLATELET COUNT, AUTOMATED 243 10^3/uL (150-450); RED BLOOD COUNT 6.25 10^6/uL (4.30-6.10); WHITE BLOOD COUNT 12.4 10^3/uL (4.0-10.0)
[2021-07-29 18:45] LABS: ALBUMIN 4.4 GM/DL (3.2-5.2); BILIRUBIN,DIRECT 0.1 MG/DL (0.0-0.2); BILIRUBIN,TOTAL 0.9 MG/DL (0.2-1.0); TOTAL PROTEIN 8.4 GM/DL (6.4-8.2)
[2021-07-29] MEDS ORDERED: ISOVUE-370 76% 100ML VIAL As Ordered ONE (19:00)
[2021-07-29] MEDS ORDERED: PROMETHAZINE INJ 25 MG/ML VIAL (J2550) IV ONE (19:05)
[2021-07-29] MEDS ORDERED: ONDA4TAB6 PO (20:05)
== END 2021-07-29 20:28 | disposition home or self-care (01) ==
LOC: EDBD 16:56 → M ED 16:56
DX: R10.9 Unspecified abdominal pain (principal); R11.2 Nausea with vomiting, unspecified; I10 Essential (primary) hypertension; R51.9 Headache, unspecified; J44.9 Chronic obstructive pulmonary disease, unspecified; K57.92 Diverticulitis of intestine, part unspecified, without perforation or abscess without bleeding; M51.36 Other intervertebral disc degeneration, lumbar region; K52.9 Noninfective gastroenteritis and colitis, unspecified; F17.200 Nicotine dependence, unspecified, uncomplicated; F12.10 Cannabis abuse, uncomplicated; Z79.899 Other long term (current) drug therapy; Z88.8 Allergy status to other drugs, medicaments and biological substances
CPT/HCPCS: 74177; 80047; 80076; 83605; 83690; 85025; 96361; 96374; 96375; 99284; J2270; J2765; Q9967

== ENCOUNTER → 2021-09-13 | Outpatient (REF) | payer OTHER ==
[~2021-09-13] MED LIST changes: +BUPR-71 PO; -BUPR150T5 PO
== END ==
LOC: M SFHCADAM 16:24
PROVIDERS: ATTEND Family Medicine
DX: R30.0 Dysuria (principal)

== ENCOUNTER → 2021-09-27 | Outpatient (CLI) | payer OTHER | LOC: M WHC 14:11 | PROVIDERS: ATTEND Family Medicine | DX: R33.9 Retention of urine, unspecified (principal) ==

== ENCOUNTER 2022-10-16 14:52 | Observation (INO) | payer OTHER ==
[~2022-10-16] VITALS: Ht 172.7 cm; Wt 67.6 kg
[~2022-10-16 14:52] MED LIST changes: +LEVO1TAB38 PO; -LEVO250T3 PO; -OFIR10IN IV; +[UNRECOGNIZED DRUG - CODE] IV
[2022-10-16] MEDS ORDERED: PROMETHAZINE 25MG/ML 1ML VIAL IV ONE (16:05)
[2022-10-16] MEDS: MORPHINE 4 MG/ML 1ML VIAL IV PRN ×2 (16:29→17:00)
[2022-10-16 16:45] LABS: BASO # 0.1 10^3/uL (0.0-0.2); BASO % 0.3 % (0.0-1.0); EOS % 0.1 % (0.0-3.0); HEMATOCRIT 53.2 % (42.0-52.0); HEMOGLOBIN 18.2 g/dl (13.5-17.5); LYMPH # 1.5 10^3/uL (1.5-5.0); LYMPH % 7.1 % (24.0-44.0); MEAN CORPUSCULAR HEMOGLOBIN 30.1 pg (27.0-33.0); MEAN CORPUSCULAR HGB CONC 34.2 g/dl (32.0-36.5); MEAN CORPUSCULAR VOLUME 88.1 fl (80.0-96.0); MONO % 4.8 % (2.0-8.0); NEUTROPHILS # 18.2 10^3/uL (1.5-8.5); NEUTROPHILS % 87.3 % (36.0-66.0); PLATELET COUNT, AUTOMATED 230 10^3/uL (150-450); RED BLOOD COUNT 6.04 10^6/uL (4.30-6.10); WHITE BLOOD COUNT 20.9 10^3/uL (4.0-10.0)
[2022-10-16 17:13] LABS: LIPASE 45 U/L (12-53)
[2022-10-16 17:15] LABS: ALBUMIN 4.4 G/DL (3.2-5.2); ALKALINE PHOSPHATASE 116 U/L (46-116); ALT/SGPT 12 U/L (7.0-40); AST/SGOT 14 U/L (<34); BILIRUBIN,DIRECT 0.2 MG/DL (<0.4); BILIRUBIN,TOTAL 0.6 MG/DL (0.3-1.2); BLOOD UREA NITROGEN 30 MG/DL (9-23); CALCIUM LEVEL 9.9 MG/DL (8.5-10.1); CARBON DIOXIDE LEVEL 22 MMOL/L (20-31); CHLORIDE LEVEL 103 MMOL/L (98-107); CK-MB VALUE MASS < 1.0 NG/ML (<3.6); CREATININE FOR GFR 0.88 MG/DL (0.70-1.30); GLOMERULAR FILTRATION RATE > 60.0 (>56); GLUCOSE, FASTING 117 MG/DL (60-100); POTASSIUM SERUM 3.8 MMOL/L (3.5-5.1); SODIUM LEVEL 136 MMOL/L (136-145); TOTAL PROTEIN 7.6 G/DL (5.7-8.2)
[2022-10-16 17:17] LABS: CPK CREATINE PHOSPHOKINASE 65 U/L (46-171); MB/CK RELATIVE INDEX 1.53 (< OR =4)
[2022-10-16] MEDS ORDERED: ISOVUE-370 76% 100ML VIAL As Ordered ONE (17:20)
[2022-10-16] MEDS ORDERED: SUCRALFATE SUSP 1GM/10ML UD PO ONE (18:25)
[2022-10-16] MEDS ORDERED: PANTOPRAZOLE 40MG VIAL IV ONE (18:25)
[2022-10-16 18:45] VITALS: TEMP 98.6
[2022-10-16] MEDS ORDERED: MORPHINE 4 MG/ML 1ML VIAL IV ONE (19:25)
[2022-10-16] MEDS ORDERED: PIPERACILLIN/TAZOBACTAM SOD 3.375 GM in D5W MINI-BAG PLUS 50 ML IV ONE (19:25)
[2022-10-16] MEDS ORDERED: D 101000 PO (19:54)
[2022-10-16] MEDS ORDERED: IBUP200C28 PO (19:54)
[2022-10-16] MEDS ORDERED: TYLE650T38 PO (19:54)
[2022-10-16] MEDS ORDERED: HOME MED LIST COMPLETE! XX SCH (19:55)
[2022-10-16] MEDS ORDERED: KETOROLAC 30 MG/ML 1ML VIAL IV PRN (21:15)
[2022-10-16] MEDS ORDERED: NICOTINE 21MG/24HR 1 EA TRANSDERMAL TD PRN (21:15)
[2022-10-16] MEDS ORDERED: KETOROLAC TROMETHAMINE 10 MG TAB PO PRN (21:15)
[2022-10-16] MEDS ORDERED: LR 1,000 ML IV ONE (21:15)
[2022-10-16] MEDS ORDERED: ACETAMINOPHEN 1000MG 100ML IV BAG IV PRN (21:15)
[2022-10-16] MEDS ORDERED: PROCHLORPERAZINE 10MG 2ML VIAL IV PRN (21:20)
[2022-10-16] MEDS ORDERED: ONDANSETRON 4MG 2ML VIAL IV PRN (21:20)
[2022-10-16] MEDS ORDERED: METOCLOPRAMIDE INJ 10MG/2ML VIAL IV PRN (21:20)
[2022-10-16 21:31] VITALS: BP 138/83; O2SAT 97
[2022-10-16 21:33] LABS: RSV AMPLIFICATION NEGATIVE (NEGATIVE)
[2022-10-16] MEDS ORDERED: LR 1,000 ML IV SCH (22:15)
[2022-10-17] MEDS ORDERED: ONDA4TAB6 PO (15:54)
[2022-10-17] MEDS ORDERED: PANTOPRAZOLE 40MG VIAL IV SCH (18:00)
[2022-10-20] MEDS ORDERED: CIPR-249 PO (08:18)
[2022-10-20] MEDS ORDERED: METR-265 PO (08:18)
[2022-10-20] MEDS ORDERED: SENN-52 PO (08:18)
== END 2022-10-16 21:41 | disposition left against medical advice (07) ==
LOC: M ED 14:52 → M ED INP 20:12 → M ED 21:44
PROVIDERS: ADMIT Internal Medicine; ATTEND Internal Medicine
DX: R55 Syncope and collapse (principal); Z53.21 Procedure and treatment not carried out due to patient leaving prior to being seen by health care provider; R11.2 Nausea with vomiting, unspecified; F12.188 Cannabis abuse with other cannabis-induced disorder; I10 Essential (primary) hypertension; K21.9 Gastro-esophageal reflux disease without esophagitis; F17.210 Nicotine dependence, cigarettes, uncomplicated; K86.1 Other chronic pancreatitis; Z88.8 Allergy status to other drugs, medicaments and biological substances
CPT/HCPCS: 74177; 80048; 80076; 82550; 82553; 83690; 85025; 87631; 93005; 93041; 96365; 96375; 96376; 99285; C9113; J2543; J2550; Q9967

== ENCOUNTER 2023-04-09 19:13 | Emergency (ER) | payer MEDICAID, OTHER ==
[~2023-04-09] VITALS: Ht 172.7 cm; Wt 59.1 kg
[~2023-04-09 19:13] MED LIST changes: -AMIT25TA17 PO; +AMIT25TA19 PO; -CEFD300C41 PO; +CEFD300C42 PO; +D 101000 PO; -GABA-283 PO; +GABA-284 PO; +IBUP200C28 PO; +SENN-52 PO; +TYLE650T38 PO
[2023-04-09] MEDS ORDERED: ONDANSETRON 4MG 2ML VIAL IV ONE (20:45)
[2023-04-09] MEDS ORDERED: NS 1,000 ML IV ONE ×2 (20:45→22:20)
[2023-04-09] MEDS ORDERED: MORPHINE 4 MG/ML 1ML VIAL IV ONE ×2 (20:45→23:35)
[2023-04-09 21:59] LABS: BASO # 0.1 10^3/uL (0.0-0.2); BASO % 0.3 % (0.0-1.0); HEMATOCRIT 53.6 % (42.0-52.0); HEMOGLOBIN 18.8 g/dl (13.5-17.5); LYMPH # 0.9 10^3/uL (1.5-5.0); LYMPH % 4.7 % (24.0-44.0); MEAN CORPUSCULAR HEMOGLOBIN 30.5 pg (27.0-33.0); MEAN CORPUSCULAR HGB CONC 35.1 g/dl (32.0-36.5); MONO # 0.9 10^3/uL (0.0-0.8); MONO % 4.5 % (2.0-8.0); NEUTROPHILS # 17.7 10^3/uL (1.5-8.5); NEUTROPHILS % 89.9 % (36.0-66.0); PLATELET COUNT, AUTOMATED 220 10^3/uL (150-450); RED BLOOD COUNT 6.16 10^6/uL (4.30-6.10); WHITE BLOOD COUNT 19.7 10^3/uL (4.0-10.0)
[2023-04-09 22:08] LABS: ALBUMIN 4.4 G/DL (3.2-5.2); BILIRUBIN,DIRECT 0.3 MG/DL (<0.4); BILIRUBIN,TOTAL 1.1 MG/DL (0.3-1.2); CALCIUM LEVEL 10.2 MG/DL (8.5-10.1); CREATININE FOR GFR 1.38 MG/DL (0.70-1.30); GLOMERULAR FILTRATION RATE 57.4 (>56); POTASSIUM SERUM 3.8 MMOL/L (3.5-5.1); TOTAL PROTEIN 7.8 G/DL (5.7-8.2)
[2023-04-09 22:14] VITALS: TEMP 98
[2023-04-09] MEDS ORDERED: ISOVUE-370 76% 100ML VIAL As Ordered ONE (22:19)
[2023-04-09] MEDS ORDERED: PIPERACILLIN/TAZOBACTAM SOD 4.5 GM in D5W MINI-BAG PLUS 50 ML IV ONE (23:15)
[2023-04-10] MEDS ORDERED: HOME MED LIST COMPLETE! XX SCH (01:25)
[2023-04-10 01:45] VITALS: BP 106/68; O2SAT 98
[2023-04-10 02:20] LABS: RSV AMPLIFICATION NEGATIVE (NEGATIVE)
== END 2023-04-10 02:06 | disposition left against medical advice (07) ==
LOC: M ED 19:13
DX: K52.9 Noninfective gastroenteritis and colitis, unspecified (principal); K21.9 Gastro-esophageal reflux disease without esophagitis; F17.200 Nicotine dependence, unspecified, uncomplicated; F10.10 Alcohol abuse, uncomplicated; Z88.8 Allergy status to other drugs, medicaments and biological substances; Z53.9 Procedure and treatment not carried out, unspecified reason
CPT/HCPCS: 74177; 80048; 80076; 83605; 83690; 85025; 87631; 96361; 96374; 96375; 96376; 99284; J2405; J2543; Q9967

== ENCOUNTER 2023-04-30 12:09 | Observation (INO) | payer OTHER ==
[~2023-04-30] VITALS: Ht 172.7 cm; Wt 58.2 kg
[~2023-04-30 12:09] MED LIST changes: +CEFD1CAP9 PO; -CEFD300C42 PO
[2023-04-30] MEDS ORDERED: ONDANSETRON 4MG ORAL DISINTEGRATING TAB PO ONE (14:30)
[2023-04-30 15:56] LABS: HEMATOCRIT 56.9 % (42.0-52.0); HEMOGLOBIN 19.3 g/dl (13.5-17.5); MEAN CORPUSCULAR HEMOGLOBIN 29.9 pg (27.0-33.0); MEAN CORPUSCULAR HGB CONC 33.9 g/dl (32.0-36.5); MEAN CORPUSCULAR VOLUME 88.1 fl (80.0-96.0); PLATELET COUNT, AUTOMATED 313 10^3/uL (150-450); RED BLOOD COUNT 6.46 10^6/uL (4.30-6.10); WHITE BLOOD COUNT 15.7 10^3/uL (4.0-10.0)
[2023-04-30 15:58] LABS: CALCIUM LEVEL 10.6 MG/DL (8.5-10.1); CREATININE FOR GFR 1.91 MG/DL (0.70-1.30); GLOMERULAR FILTRATION RATE 39.3 (>56); POTASSIUM SERUM 4.2 MMOL/L (3.5-5.1)
[2023-04-30] MEDS ORDERED: NS 1,000 ML IV ONE ×2 (16:35→18:25)
[2023-04-30] MEDS ORDERED: ONDANSETRON 4MG 2ML VIAL IV ONE (16:35)
[2023-04-30] MEDS ORDERED: MORPHINE 4 MG/ML 1ML VIAL IV ONE (16:35)
[2023-04-30 17:38] LABS: CK-MB VALUE MASS < 1.0 NG/ML (<3.6); LIPASE 28 U/L (12-53)
[2023-04-30 17:40] LABS: ALBUMIN 4.4 G/DL (3.2-5.2); ALKALINE PHOSPHATASE 131 U/L (46-116); ALT/SGPT 10 U/L (7.0-40); AST/SGOT 12 U/L (<34); BILIRUBIN,DIRECT 0.1 MG/DL (<0.4); BILIRUBIN,TOTAL 0.5 MG/DL (0.3-1.2); TOTAL PROTEIN 8.4 G/DL (5.7-8.2)
[2023-04-30 17:48] LABS: CPK CREATINE PHOSPHOKINASE 64 U/L (46-171); MB/CK RELATIVE INDEX 1.56 (< OR =4)
[2023-04-30] MEDS ORDERED: fentaNYL 100 MCG/2 ML INJECTION IV ONE (18:00)
[2023-04-30] MEDS ORDERED: METOCLOPRAMIDE INJ 10MG/2ML VIAL IV ONE (18:00)
[2023-04-30 18:01] LABS: RSV AMPLIFICATION NEGATIVE (NEGATIVE)
[2023-04-30] MEDS ORDERED: MED REC IN PROGRESS XX SCH (18:20)
[2023-04-30] MEDS ORDERED: PERCOCET 5MG/325MG TAB PO PRN (18:25)
[2023-04-30] MEDS ORDERED: HOME MED LIST COMPLETE! XX SCH (18:45)
[2023-04-30 19:56] LABS: PTH INTACT 28.9 PG/ML (18.5-88.0)
[2023-04-30 19:58] LABS: TOTAL 25(OH) VITAMIN D 23.2 NG/ML (20.0-100.0)
[2023-04-30] MEDS ORDERED: PANTOPRAZOLE 40MG VIAL IV SCH (20:00)
[2023-04-30] MEDS: PIPERACILLIN/TAZOBACTAM SOD 3.375 GM in D5W MINI-BAG PLUS 50 ML IV SCH (20:13)
[2023-04-30] MEDS: LR 1,000 ML IV SCH (20:13)
[2023-04-30 21:07] VITALS: BP 127/74; TEMP 99.5; O2SAT 97
[2023-04-30] MEDS: ONDANSETRON 4MG 2ML VIAL IV SCH (21:52)
[2023-04-30] MEDS: HEPARIN SOD (PORCINE) 5000UNITS/ML 1ML VIAL/SYRINGE SC SCH (22:00)
[2023-05-01] MEDS: MORPHINE 2 MG/ML 1ML VIAL IV PRN ×2 (02:28→08:07)
[2023-05-01] MEDS: PIPERACILLIN/TAZOBACTAM SOD 3.375 GM in D5W MINI-BAG PLUS 50 ML IV SCH ×2 (02:30→08:07)
[2023-05-01] MEDS: ONDANSETRON 4MG 2ML VIAL IV SCH (03:52)
[2023-05-01] MEDS: HEPARIN SOD (PORCINE) 5000UNITS/ML 1ML VIAL/SYRINGE SC SCH (06:00)
[2023-05-01] MEDS: LR 1,000 ML IV SCH ×2 (06:00→09:56)
[2023-05-01 06:14] LABS: HEMATOCRIT 42.6 % (42.0-52.0); MEAN CORPUSCULAR HEMOGLOBIN 30.6 pg (27.0-33.0); MEAN CORPUSCULAR VOLUME 89.9 fl (80.0-96.0); RED BLOOD COUNT 4.74 10^6/uL (4.30-6.10); WHITE BLOOD COUNT 9.6 10^3/uL (4.0-10.0)
[2023-05-01 06:16] LABS: HEMOGLOBIN 14.5 g/dl (13.5-17.5)
[2023-05-01 06:18] LABS: PLATELET COUNT, AUTOMATED 210 10^3/uL (150-450)
[2023-05-01 06:19] VITALS: BP 100/60; TEMP 98.8; O2SAT 94
[2023-05-01 06:39] LABS: BLOOD UREA NITROGEN 19 MG/DL (9-23); CARBON DIOXIDE LEVEL 25 MMOL/L (20-31); CHLORIDE LEVEL 107 MMOL/L (98-107); GLOMERULAR FILTRATION RATE > 60.0 (>56); GLUCOSE, FASTING 79 MG/DL (60-100); POTASSIUM SERUM 3.8 MMOL/L (3.5-5.1); SODIUM LEVEL 138 MMOL/L (136-145)
[2023-05-01] MEDS ORDERED: ONDANSETRON 4MG 2ML VIAL IV PRN (07:25)
[2023-05-01] MEDS ORDERED: PERCOCET PO ×2 (10:35→10:52)
[2023-05-01] MEDS ORDERED: PROTPAK PO (10:39)
[2023-05-01] MEDS ORDERED: VENTAER INH (10:41)
[2023-05-01] MEDS ORDERED: AMOX875T2 PO (10:41)
[2023-05-01] MEDS ORDERED: ONDA-83 PO (10:52)
[2023-05-01] MEDS ORDERED: PROT1TAB2 PO (10:52)
== END 2023-05-01 12:08 | disposition home or self-care (01) ==
LOC: M ED 12:09 → EDBD 12:09 → M ED INP 18:22 → M MSPAV 21:07
PROVIDERS: ADMIT Internal Medicine; ATTEND Internal Medicine
DX: K57.32 Diverticulitis of large intestine without perforation or abscess without bleeding (principal); R11.2 Nausea with vomiting, unspecified; I10 Essential (primary) hypertension; K21.9 Gastro-esophageal reflux disease without esophagitis; F17.218 Nicotine dependence, cigarettes, with other nicotine-induced disorders; D45 Polycythemia vera; E83.52 Hypercalcemia; Z79.2 Long term (current) use of antibiotics; Z79.899 Other long term (current) drug therapy; Z88.1 Allergy status to other antibiotic agents; Z88.8 Allergy status to other drugs, medicaments and biological substances
CPT/HCPCS: 36415; 74176; 80048; 80076; 82306; 82550; 82553; 83605; 83690; 83970; 85027; 87040; 87631; 93005; 96361; 96365; 96366; 96375; 96376; 99285; C9113; J2405; J2543; J2765; J3010

== ENCOUNTER 2023-05-22 19:48 | Emergency (ER) | payer OTHER ==
[~2023-05-22] VITALS: Ht 172.7 cm; Wt 56.6 kg
[~2023-05-22 19:48] MED LIST changes: +AMOX875T2 PO; +ONDA-83 PO; +VENTAER INH
[2023-05-22 19:55] VITALS: TEMP 97
[2023-05-22] MEDS ORDERED: MORPHINE 2 MG/ML 1ML VIAL IV ONE (20:45)
[2023-05-22] MEDS ORDERED: HALOPERIDOL 5MG/ML 1ML VIAL IV STA (20:45)
[2023-05-22 21:42] LABS: BASO % 0.3 % (0.0-1.0); HEMATOCRIT 50.3 % (42.0-52.0); HEMOGLOBIN 17.3 g/dl (13.5-17.5); LYMPH # 1.1 10^3/uL (1.5-5.0); MEAN CORPUSCULAR HEMOGLOBIN 30.1 pg (27.0-33.0); MEAN CORPUSCULAR HGB CONC 34.4 g/dl (32.0-36.5); MEAN CORPUSCULAR VOLUME 87.6 fl (80.0-96.0); MONO # 0.7 10^3/uL (0.0-0.8); MONO % 5.2 % (2.0-8.0); NEUTROPHILS # 10.6 10^3/uL (1.5-8.5); NEUTROPHILS % 85.3 % (36.0-66.0); PLATELET COUNT, AUTOMATED 183 10^3/uL (150-450); RED BLOOD COUNT 5.74 10^6/uL (4.30-6.10); WHITE BLOOD COUNT 12.4 10^3/uL (4.0-10.0)
[2023-05-22 22:03] LABS: LIPASE 28 U/L (12-53)
[2023-05-22 22:05] LABS: ALBUMIN 4.4 G/DL (3.2-5.2); ALKALINE PHOSPHATASE 111 U/L (46-116); ALT/SGPT 12 U/L (7.0-40); AST/SGOT 22 U/L (<34); BILIRUBIN,DIRECT 0.2 MG/DL (<0.4); BILIRUBIN,TOTAL 0.7 MG/DL (0.3-1.2); BLOOD UREA NITROGEN 14 MG/DL (9-23); CALCIUM LEVEL 9.9 MG/DL (8.5-10.1); CARBON DIOXIDE LEVEL 24 MMOL/L (20-31); CHLORIDE LEVEL 109 MMOL/L (98-107); CREATININE FOR GFR 0.88 MG/DL (0.70-1.30); GLOMERULAR FILTRATION RATE > 60.0 (>56); GLUCOSE, FASTING 115 MG/DL (60-100); POTASSIUM SERUM 4.6 MMOL/L (3.5-5.1); SODIUM LEVEL 142 MMOL/L (136-145); TOTAL PROTEIN 7.7 G/DL (5.7-8.2)
[2023-05-22] MEDS ORDERED: CAPSAICIN 0.025% CR 60 GM TOP ONE (23:20)
[2023-05-22] MEDS ORDERED: PHENAZOPYRIDINE 100 MG TAB PO ONE (23:30)
[2023-05-22] MEDS ORDERED: CEFDINIR 300 MG CAP (OMNICEF) PO ONE (23:30)
[2023-05-22] MEDS ORDERED: PYRI1TAB5 PO (23:42)
[2023-05-22] MEDS ORDERED: CEFD1CAP9 PO (23:42)
[2023-05-22] MEDS ORDERED: CAPS0.022 TOP (23:44)
[2023-05-22 23:48] VITALS: BP 146/67; O2SAT 97
== END 2023-05-23 00:07 | disposition home or self-care (01) ==
LOC: EDBD 19:48 → M ED 19:48
DX: N39.0 Urinary tract infection, site not specified (principal); F12.188 Cannabis abuse with other cannabis-induced disorder; I10 Essential (primary) hypertension; K21.9 Gastro-esophageal reflux disease without esophagitis; F17.200 Nicotine dependence, unspecified, uncomplicated; Z88.1 Allergy status to other antibiotic agents; Z88.6 Allergy status to analgesic agent; Z79.52 Long term (current) use of systemic steroids; Z79.83 Long term (current) use of bisphosphonates; Z79.2 Long term (current) use of antibiotics; Z79.899 Other long term (current) drug therapy
CPT/HCPCS: 74021; 80048; 80076; 81001; 83605; 83690; 85025; 93041; 96374; 96375; 99285; J1630

== ENCOUNTER 2023-06-12 08:15 | Emergency (ER) | payer OTHER ==
[~2023-06-12] VITALS: Ht 172.7 cm; Wt 56.4 kg
[~2023-06-12 08:15] MED LIST changes: +CAPS0.022 TOP; +PYRI1TAB5 PO
[2023-06-12] MEDS ORDERED: NS 1,000 ML IV SCH (09:00)
[2023-06-12 09:15] LABS: BASO # 0.1 10^3/uL (0.0-0.2); BASO % 0.5 % (0.0-1.0); EOS % 0.2 % (0.0-3.0); HEMATOCRIT 59.3 % (42.0-52.0); LYMPH % 16.2 % (24.0-44.0); MEAN CORPUSCULAR HEMOGLOBIN 29.7 pg (27.0-33.0); MEAN CORPUSCULAR HGB CONC 34.7 g/dl (32.0-36.5); MEAN CORPUSCULAR VOLUME 85.4 fl (80.0-96.0); MONO # 0.8 10^3/uL (0.0-0.8); MONO % 6.5 % (2.0-8.0); NEUTROPHILS # 9.2 10^3/uL (1.5-8.5); NEUTROPHILS % 76.3 % (36.0-66.0); PLATELET COUNT, AUTOMATED 245 10^3/uL (150-450); RED BLOOD COUNT 6.94 10^6/uL (4.30-6.10); WHITE BLOOD COUNT 12.1 10^3/uL (4.0-10.0)
[2023-06-12 09:22] LABS: HEMOGLOBIN 20.6 g/dl (13.5-17.5)
[2023-06-12 09:35] LABS: ALBUMIN 5.1 G/DL (3.2-5.2); BILIRUBIN,DIRECT 0.2 MG/DL (<0.4); CALCIUM LEVEL 11.6 MG/DL (8.5-10.1); CREATININE FOR GFR 1.54 MG/DL (0.70-1.30); GLOMERULAR FILTRATION RATE 50.4 (>56); POTASSIUM SERUM 4.2 MMOL/L (3.5-5.1); TOTAL PROTEIN 8.9 G/DL (5.7-8.2)
[2023-06-12] MEDS ORDERED: MORPHINE 4 MG/ML 1ML VIAL IV ONE ×2 (09:45→11:55)
[2023-06-12] MEDS ORDERED: ONDANSETRON 4MG 2ML VIAL IV ONE (09:45)
[2023-06-12] MEDS ORDERED: ISOVUE-370 76% 100ML VIAL As Ordered ONE (09:47)
[2023-06-12 13:30] VITALS: BP 149/96; O2SAT 99
[2023-06-12 13:38] VITALS: TEMP 97.3
== END 2023-06-12 13:44 | disposition home or self-care (01) ==
LOC: EDBD 08:15 → M ED 08:15
DX: R10.9 Unspecified abdominal pain (principal); D68.9 Coagulation defect, unspecified; I10 Essential (primary) hypertension; F17.210 Nicotine dependence, cigarettes, uncomplicated; F12.10 Cannabis abuse, uncomplicated; Z88.8 Allergy status to other drugs, medicaments and biological substances; Z79.899 Other long term (current) drug therapy
CPT/HCPCS: 74177; 80048; 80076; 81001; 83690; 85025; 93041; 96361; 96374; 96375; 99285; J2405; Q9967

== ENCOUNTER → 2023-06-14 | Outpatient (REF) | payer OTHER ==
[2023-06-14 19:17] LABS: BASO % 0.3 % (0.0-1.0); EOS # 0.1 10^3/uL (0.0-0.5); EOS % 0.6 % (0.0-3.0); HEMATOCRIT 52.3 % (42.0-52.0); LYMPH # 1.9 10^3/uL (1.5-5.0); LYMPH % 17.6 % (24.0-44.0); MEAN CORPUSCULAR HEMOGLOBIN 30.2 pg (27.0-33.0); MEAN CORPUSCULAR HGB CONC 34.4 g/dl (32.0-36.5); MEAN CORPUSCULAR VOLUME 87.6 fl (80.0-96.0); MONO # 0.8 10^3/uL (0.0-0.8); MONO % 7.4 % (2.0-8.0); NEUTROPHILS % 73.8 % (36.0-66.0); PLATELET COUNT, AUTOMATED 198 10^3/uL (150-450); RED BLOOD COUNT 5.97 10^6/uL (4.30-6.10); WHITE BLOOD COUNT 10.9 10^3/uL (4.0-10.0)
[2023-06-14 19:44] LABS: LIPASE 63 U/L (12-53)
[2023-06-14 19:46] LABS: AMYLASE 102 U/L (30-118)
[2023-06-14 19:49] LABS: ALBUMIN 4.3 G/DL (3.2-5.2); ALKALINE PHOSPHATASE 104 U/L (46-116); ALT/SGPT 12 U/L (7.0-40); AST/SGOT 22 U/L (<34); BLOOD UREA NITROGEN 28 MG/DL (9-23); CALCIUM LEVEL 9.4 MG/DL (8.5-10.1); CARBON DIOXIDE LEVEL 25 MMOL/L (20-31); CHLORIDE LEVEL 96 MMOL/L (98-107); CREATININE FOR GFR 1.03 MG/DL (0.70-1.30); GLOMERULAR FILTRATION RATE > 60.0 (>56); GLUCOSE, FASTING 94 MG/DL (60-100); POTASSIUM SERUM 3.9 MMOL/L (3.5-5.1); SODIUM LEVEL 131 MMOL/L (136-145); TOTAL PROTEIN 7.9 G/DL (5.7-8.2)
== END ==
LOC: M SFHCADAM 13:35
PROVIDERS: ATTEND Physician Assistant
DX: K52.9 Noninfective gastroenteritis and colitis, unspecified (principal)

== ENCOUNTER 2023-10-22 23:19 | Inpatient (IN) | payer OTHER ==
[~2023-10-22] VITALS: Ht 172.7 cm; Wt 52.8 kg
[~2023-10-22 23:19] MED LIST changes: +ONDA-282 PO; -ONDA4TAB6 PO
[2023-10-23 00:40] LABS: BASO # 0.1 10^3/uL (0.0-0.2); BASO % 0.5 % (0.0-1.0); EOS % 0.2 % (0.0-3.0); HEMATOCRIT 54.2 % (42.0-52.0); HEMOGLOBIN 18.6 g/dl (13.5-17.5); LYMPH # 1.2 10^3/uL (1.5-5.0); LYMPH % 9.2 % (24.0-44.0); MEAN CORPUSCULAR HEMOGLOBIN 30.9 pg (27.0-33.0); MEAN CORPUSCULAR HGB CONC 34.3 g/dl (32.0-36.5); MEAN CORPUSCULAR VOLUME 90.2 fl (80.0-96.0); MONO # 0.5 10^3/uL (0.0-0.8); NEUTROPHILS # 10.8 10^3/uL (1.5-8.5); NEUTROPHILS % 85.5 % (36.0-66.0); PLATELET COUNT, AUTOMATED 195 10^3/uL (150-450); RED BLOOD COUNT 6.01 10^6/uL (4.30-6.10); WHITE BLOOD COUNT 12.6 10^3/uL (4.0-10.0)
[2023-10-23 00:41] LABS: LIPASE 28 U/L (12-53)
[2023-10-23 00:43] LABS: ALBUMIN 4.4 G/DL (3.2-5.2); ALKALINE PHOSPHATASE 112 U/L (46-116); ALT/SGPT 18 U/L (7.0-40); AST/SGOT 22 U/L (<34); BILIRUBIN,DIRECT 0.2 MG/DL (<0.4); BILIRUBIN,TOTAL 0.7 MG/DL (0.3-1.2); BLOOD UREA NITROGEN 15 MG/DL (9-23); CALCIUM LEVEL 10.1 MG/DL (8.5-10.1); CARBON DIOXIDE LEVEL 24 MMOL/L (20-31); CHLORIDE LEVEL 107 MMOL/L (98-107); CREATININE FOR GFR 1.08 MG/DL (0.70-1.30); GLOMERULAR FILTRATION RATE > 60.0 (>56); GLUCOSE, FASTING 135 MG/DL (60-100); POTASSIUM SERUM 3.9 MMOL/L (3.5-5.1); SODIUM LEVEL 142 MMOL/L (136-145); TOTAL PROTEIN 7.6 G/DL (5.7-8.2)
[2023-10-23] MEDS: MORPHINE 4 MG/ML 1ML VIAL IV ONE (01:50)
[2023-10-23] MEDS: NS 1,000 ML IV SCH ×2 (01:50→05:40)
[2023-10-23] MEDS ORDERED: ISOVUE-370 76% 100ML VIAL As Ordered ONE (01:58)
[2023-10-23 02:02] LABS: CK-MB VALUE MASS 2.6 NG/ML (<3.6)
[2023-10-23 02:07] LABS: CPK CREATINE PHOSPHOKINASE 188 U/L (46-171); MB/CK RELATIVE INDEX 1.38 (< OR =4)
[2023-10-23 02:55] LABS: CK-MB VALUE MASS 3.3 NG/ML (<3.6); MB/CK RELATIVE INDEX 1.56 (< OR =4)
[2023-10-23] MEDS ORDERED: ACETAMINOPHEN TAB 650MG DOSE (2X325MG) PO PRN (04:10)
[2023-10-23 05:00] VITALS: BP 171/83; TEMP 97.6; O2SAT 99
[2023-10-23 05:16] VITALS: BP_SYST 136; BP_SYST 144; BP_SYST 151; BP_DIAS 81; BP_DIAS 86
[2023-10-23] MEDS: MORPHINE 2 MG/ML 1ML VIAL IV ONE (05:41)
[2023-10-23] MEDS ORDERED: ONDANSETRON 4MG 2ML VIAL IV SCH (06:00)
[2023-10-23] MEDS: ONDANSETRON 4MG 2ML VIAL IV PRN (06:49)
[2023-10-23 07:21] VITALS: BP 142/63; TEMP 97.8; O2SAT 98
[2023-10-23] MEDS ORDERED: HOME MED LIST COMPLETE! XX SCH (07:45)
[2023-10-23 07:51] LABS: BASO % 0.3 % (0.0-1.0); EOS % 0.1 % (0.0-3.0); HEMOGLOBIN 17.6 g/dl (13.5-17.5); LYMPH # 1.5 10^3/uL (1.5-5.0); LYMPH % 11.1 % (24.0-44.0); MEAN CORPUSCULAR HEMOGLOBIN 29.8 pg (27.0-33.0); MEAN CORPUSCULAR HGB CONC 33.2 g/dl (32.0-36.5); MEAN CORPUSCULAR VOLUME 89.7 fl (80.0-96.0); MONO # 0.8 10^3/uL (0.0-0.8); MONO % 5.8 % (2.0-8.0); NEUTROPHILS # 10.8 10^3/uL (1.5-8.5); NEUTROPHILS % 82.3 % (36.0-66.0); PLATELET COUNT, AUTOMATED 170 10^3/uL (150-450); RED BLOOD COUNT 5.91 10^6/uL (4.30-6.10); WHITE BLOOD COUNT 13.1 10^3/uL (4.0-10.0)
[2023-10-23 08:15] LABS: BLOOD UREA NITROGEN 18 MG/DL (9-23); CALCIUM LEVEL 9.4 MG/DL (8.5-10.1); CARBON DIOXIDE LEVEL 28 MMOL/L (20-31); CHLORIDE LEVEL 105 MMOL/L (98-107); CREATININE FOR GFR 1.12 MG/DL (0.70-1.30); GLOMERULAR FILTRATION RATE > 60.0 (>56); GLUCOSE, FASTING 116 MG/DL (60-100); POTASSIUM SERUM 4.1 MMOL/L (3.5-5.1); SODIUM LEVEL 141 MMOL/L (136-145)
[2023-10-23] MEDS: DOCUSATE SODIUM 100MG CAPSULE PO SCH (09:00)
== END 2023-10-23 10:32 | disposition home or self-care (01) | DRG 204 ==
LOC: EDBD 23:19 → M ED 23:19 → M ICU 10-23 04:08 → M ED INP 10-23 04:08 → M ICU 10-23 04:59
PROVIDERS: ADMIT Preventive Medicine Undersea and Hyperbaric Medicine; ATTEND Preventive Medicine Undersea and Hyperbaric Medicine
DX: I95.1 Orthostatic hypotension (principal); K86.0 Alcohol-induced chronic pancreatitis; I10 Essential (primary) hypertension; D75.1 Secondary polycythemia; K21.9 Gastro-esophageal reflux disease without esophagitis; F17.210 Nicotine dependence, cigarettes, uncomplicated; Z79.899 Other long term (current) drug therapy; Z11.52 Encounter for screening for COVID-19; Z88.1 Allergy status to other antibiotic agents; Z88.8 Allergy status to other drugs, medicaments and biological substances

== ENCOUNTER 2023-12-02 19:15 | Emergency (ER) | payer MEDICAID, OTHER, SELFPAY ==
[~2023-12-02] VITALS: Ht 172.7 cm; Wt 56.4 kg
[2023-12-02 20:07] LABS: BASO # 0.1 10^3/uL (0.0-0.2); BASO % 0.6 % (0.0-1.0); EOS % 0.3 % (0.0-3.0); LYMPH # 2.7 10^3/uL (1.5-5.0); LYMPH % 19.4 % (24.0-44.0); MEAN CORPUSCULAR HEMOGLOBIN 30.8 pg (27.0-33.0); MEAN CORPUSCULAR HGB CONC 33.5 g/dl (32.0-36.5); NEUTROPHILS # 9.9 10^3/uL (1.5-8.5); NEUTROPHILS % 72.4 % (36.0-66.0); PLATELET COUNT, AUTOMATED 229 10^3/uL (150-450); RED BLOOD COUNT 6.85 10^6/uL (4.30-6.10); WHITE BLOOD COUNT 13.6 10^3/uL (4.0-10.0)
[2023-12-02 20:22] LABS: ALBUMIN 5.1 G/DL (3.2-5.2); BILIRUBIN,DIRECT 0.2 MG/DL (<0.4); BILIRUBIN,TOTAL 0.6 MG/DL (0.3-1.2)
[2023-12-02 20:23] LABS: HEMOGLOBIN 21.1 g/dl (13.5-17.5)
[2023-12-02] MEDS: HALOPERIDOL LACTATE 5MG/ML VIAL IV ONE (20:51)
[2023-12-02] MEDS: NS 1,000 ML IV ONE (20:51)
[2023-12-02 20:52] LABS: CALCIUM LEVEL 12.1 MG/DL (8.5-10.1); CREATININE FOR GFR 1.4 MG/DL (0.70-1.30); GLOMERULAR FILTRATION RATE 56.2 (>56); MAGNESIUM LEVEL 2.6 MG/DL (1.8-2.4); POTASSIUM SERUM 4.6 MMOL/L (3.5-5.1)
[2023-12-02] MEDS ORDERED: ISOVUE-370 76% 100ML VIAL As Ordered ONE (21:48)
[2023-12-02] MEDS: NS 500 ML IV ONE (21:50)
[2023-12-02] MEDS: KETAMINE HCL IV ONE (22:43)
[2023-12-02] MEDS: NS IV ONE (22:43)
[2023-12-02 22:57] LABS: MEAN CORPUSCULAR HEMOGLOBIN 30.8 pg (27.0-33.0); MEAN CORPUSCULAR HGB CONC 34.2 g/dl (32.0-36.5); MEAN CORPUSCULAR VOLUME 89.9 fl (80.0-96.0); PLATELET COUNT, AUTOMATED 170 10^3/uL (150-450); RED BLOOD COUNT 5.56 10^6/uL (4.30-6.10); WHITE BLOOD COUNT 15.5 10^3/uL (4.0-10.0)
[2023-12-02 22:58] LABS: HEMOGLOBIN 17.1 g/dl (13.5-17.5)
[2023-12-02 23:37] LABS: BLOOD UREA NITROGEN 18 MG/DL (9-23); CALCIUM LEVEL 9.4 MG/DL (8.5-10.1); CARBON DIOXIDE LEVEL 24 MMOL/L (20-31); CHLORIDE LEVEL 112 MMOL/L (98-107); CREATININE FOR GFR 1.05 MG/DL (0.70-1.30); GLOMERULAR FILTRATION RATE > 60.0 (>56); GLUCOSE, FASTING 146 MG/DL (60-100); POTASSIUM SERUM 4.4 MMOL/L (3.5-5.1); SODIUM LEVEL 143 MMOL/L (136-145)
[2023-12-03 00:15] VITALS: BP 124/79; TEMP 98.3; O2SAT 97
== END 2023-12-03 00:16 | disposition home or self-care (01) ==
LOC: EDBD 19:15 → M ED 19:15
DX: R10.9 Unspecified abdominal pain (principal); I10 Essential (primary) hypertension; K57.92 Diverticulitis of intestine, part unspecified, without perforation or abscess without bleeding; Z87.19 Personal history of other diseases of the digestive system; J44.9 Chronic obstructive pulmonary disease, unspecified; Z86.711 Personal history of pulmonary embolism; Z88.1 Allergy status to other antibiotic agents; Z88.8 Allergy status to other drugs, medicaments and biological substances
CPT/HCPCS: 80047; 80048; 80076; 83690; 83735; 85025; 85027; 93005; 93041; 96361; 96365; 96375; 99284; J1630

== ENCOUNTER 2024-02-12 19:18 | Emergency (ER) | payer SELFPAY ==
[~2024-02-12] VITALS: Ht 172.7 cm; Wt 59.1 kg
[~2024-02-12 19:18] MED LIST changes: +GABA-1172 PO; +GABA-1490 PO; -GABA-282 PO; -GABA600T4 PO
[2024-02-12 19:29] VITALS: TEMP 96.5
[2024-02-12 20:10] LABS: BASO % 0.2 % (0.0-1.0); EOS % 0.1 % (0.0-3.0); HEMATOCRIT 49.9 % (42.0-52.0); HEMOGLOBIN 17.9 g/dl (13.5-17.5); LYMPH # 1.5 10^3/uL (1.5-5.0); LYMPH % 10.7 % (24.0-44.0); MEAN CORPUSCULAR HEMOGLOBIN 31.1 pg (27.0-33.0); MEAN CORPUSCULAR HGB CONC 35.9 g/dl (32.0-36.5); MEAN CORPUSCULAR VOLUME 86.6 fl (80.0-96.0); MONO # 0.8 10^3/uL (0.0-0.8); NEUTROPHILS # 11.3 10^3/uL (1.5-8.5); NEUTROPHILS % 82.7 % (36.0-66.0); PLATELET COUNT, AUTOMATED 202 10^3/uL (150-450); RED BLOOD COUNT 5.76 10^6/uL (4.30-6.10); WHITE BLOOD COUNT 13.6 10^3/uL (4.0-10.0)
[2024-02-12] MEDS: ONDANSETRON 4MG 2ML VIAL IV ONE (20:15)
[2024-02-12] MEDS: MORPHINE 4 MG/ML 1ML VIAL IV PRN (20:17)
[2024-02-12] MEDS: NS 500 ML IV ONE (20:17)
[2024-02-12 20:28] LABS: CK-MB VALUE MASS 1.6 NG/ML (<3.6); ETHYL ALCOHOL (ETHANOL) < 0.003 % (0.000-0.010); LIPASE 32 U/L (12-53)
[2024-02-12 20:29] LABS: CPK CREATINE PHOSPHOKINASE 122 U/L (46-171); MB/CK RELATIVE INDEX 1.31 (< OR =4)
[2024-02-12 20:30] LABS: ALBUMIN 4.4 G/DL (3.2-5.2); ALKALINE PHOSPHATASE 106 U/L (46-116); ALT/SGPT 13 U/L (7.0-40); AST/SGOT 14 U/L (<34); BILIRUBIN,DIRECT 0.3 MG/DL (<0.4); BILIRUBIN,TOTAL 0.9 MG/DL (0.3-1.2); BLOOD UREA NITROGEN 31 MG/DL (9-23); CALCIUM LEVEL 10.3 MG/DL (8.5-10.1); CARBON DIOXIDE LEVEL 28 MMOL/L (20-31); CHLORIDE LEVEL 100 MMOL/L (98-107); GLOMERULAR FILTRATION RATE > 60.0 (>56); GLUCOSE, FASTING 110 MG/DL (60-100); POTASSIUM SERUM 3.8 MMOL/L (3.5-5.1); SODIUM LEVEL 135 MMOL/L (136-145); TOTAL PROTEIN 7.6 G/DL (5.7-8.2)
[2024-02-12] MEDS: PANTOPRAZOLE 40MG VIAL IV ONE (21:25)
[2024-02-12] MEDS: ACETAMINOPHEN *IV* 1,000 MG in IV 1 EA IV ONE (21:26)
[2024-02-12 22:00] VITALS: BP 163/94
[2024-02-12 22:36] LABS: CK-MB VALUE MASS 1.1 NG/ML (<3.6)
[2024-02-12 22:59] LABS: MB/CK RELATIVE INDEX 1.01 (< OR =4)
[2024-02-12] MEDS ORDERED: PROT1TAB2 PO (23:36)
[2024-02-12] MEDS ORDERED: ONDA-282 PO (23:36)
[2024-02-12 23:57] VITALS: O2SAT 98
== END 2024-02-13 00:29 | disposition home or self-care (01) ==
LOC: M ED 19:18 → EDBD 19:18 → M ED 02-13 00:29
DX: R10.13 Epigastric pain (principal); I51.7 Cardiomegaly; I45.10 Unspecified right bundle-branch block; K21.9 Gastro-esophageal reflux disease without esophagitis; N18.9 Chronic kidney disease, unspecified; F17.200 Nicotine dependence, unspecified, uncomplicated; F12.10 Cannabis abuse, uncomplicated; J44.9 Chronic obstructive pulmonary disease, unspecified; Z88.1 Allergy status to other antibiotic agents; Z88.6 Allergy status to analgesic agent; Z79.83 Long term (current) use of bisphosphonates; Z79.899 Other long term (current) drug therapy
CPT/HCPCS: 36415; 80048; 80076; 82077; 82550; 82553; 83605; 83690; 84484; 85025; 87040; 87077; 87186; 93005; 93041; 96361; 96374; 96375; 96376; 99285; J0131; J2405; J2470

== ENCOUNTER 2024-12-19 23:12 | Emergency (ER) | payer SELFPAY ==
[~2024-12-19] VITALS: Ht 172.7 cm; Wt 54.5 kg
[~2024-12-19 23:12] MED LIST changes: -ADV250INH INH; +ADVA1AER9 INH; +ALEV220T22 PO; -HYOS0.1214 PO; +HYOS0.1282 PO; +PROT20TA11 PO; +SUCR1SS PO
[2024-12-19 23:22] VITALS: BP 129/93; TEMP 97.6; O2SAT 97
== END 2024-12-20 00:24 | disposition left against medical advice (07) ==
LOC: M ED 23:12
DX: Z53.21 Procedure and treatment not carried out due to patient leaving prior to being seen by health care provider (principal)